=== PATIENT | male | born 1950 | race Caucasian/White ===

== ENCOUNTER 2020-02-06 10:21 | Emergency (ER) | payer MEDICARE, SELFPAY ==
--- NOTE | ~2020-02-06 | XR_ITS ---
XR foot LT min 3V DATE: 02/06/2020 11:09 INDICATION: Left foot pain, swelling, erythema, tenderness. No known injury. TECHNIQUE: 4 views COMPARISON: None FINDINGS: Minimal plantar calcaneal enthesopathy. 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 No fracture or dislocation, periosteal reaction or bone destruction. IMPRESSION: Minimal plantar calcaneal enthesopathy Reviewed, dictated and finalized at location A. ATIONS MGR
[2020-02-06 10:25] VITALS: BP 190/82; PULSE 79; RESP 18; TEMP 36.4; O2SAT 98
[2020-02-06 11:09] LABS: Basophils Absolute Auto 0.1 K/mm3 (0.0-0.1); Basophils Percent Auto 0.9 % (0.2-1.2); Eosinophils Absolute Auto 0.3 K/mm3 (0-0.3); Eosinophils Percent Auto 3.6 % (0-4.4); Hematocrit 42.6 % (42.0-52.0); Hemoglobin 15.2 g/dL (14.0-18.0); Immature Granulocyte Absolute 0.02 K/mm3 (0.00-0.031); Immature Granulocyte Percent A 0.2 % (0-0.5); Lymphocytes Absolute Auto 1.17 K/mm3 (0.9-3.2); Lymphocytes Percent Auto 14.4 % (18.3-44.2); Mean Corpuscular HGB Conc 35.7 g/dl (32-36); Mean Corpuscular Hemoglobin 33.8 pg (26-34); Mean Corpuscular Volume 94.7 fl (80-100); Mean Platelet Volume 10.8 fl (7.4-10.4); Monocytes Absolute Auto 0.8 K/mm3 (0.1-0.6); Monocytes Percent Auto 9.3 % (2.6-8.5); Neutrophils Absolute Auto 5.8 K/mm3 (1.3-6.7); Neutrophils Percent Auto 71.6 % (45.5-73.1); Platelet Count Result 173 k/mm3 (150-375); Red Cell Distribution Width 12.1 % (11.5-14.5); White Blood Count 8.1 K/mm3 (4.5-10.0)
[2020-02-06] MEDS: KETOROLAC 30 MG/ML VIAL (*BKC) IV PUSH (11:15)
[2020-02-06] MEDS: COLCHICINE 0.6 MG TABLET 1.2 MG PO (11:15)
--- NOTE | 2020-02-06 11:18 | ED.GENADULT ---
HPI - General Adult General Chief complaint: Extremity Injury, Lower Stated complaint: left big toe pain and swelling Time Seen by Provider: 02/06/20 10:36 Source: patient Mode of arrival: ambulatory Limitations: no limitations History of Present Illness HPI narrative: Patient 69-year-old male presents with 3 days duration of left great toe pain and swelling patient denies injury trauma or similar occurrence notes exquisite pain with even light touch denies radiation of pain does not take anything for his symptoms presents in no distress Related Data Home Medications Medication Instructions Recorded Confirmed ascorbic acid (vitamin C) 500 mg PO DAILY 02/06/20 02/06/20 folic acid 1 mg PO DAILY 02/06/20 02/06/20 levothyroxine [Synthroid] 100 mcg PO DAILY 02/06/20 02/06/20 lisinopril 20 mg PO BID 02/06/20 02/06/20 montelukast [Singulair] 10 mg PO DAILY 02/06/20 02/06/20 Allergies Allergy/AdvReac Type Severity Reaction Status Date / Time No Known Allergies Allergy Verified 02/06/20 10:27 Review of Systems Review of Systems: All systems reviewed & are unremarkable except as noted in HPI and below PMFSH Past Medical History Medical History (Updated 02/06/20 @ 11:34 by Kota Brown PA-C) Hypertension Social History Social History (Updated 02/06/20 @ 11:30 by Kota Brown PA-C) Smoking status: Former smoker Gender identity (if verbalized by the patient): Male Exam Narrative: Exam Narrative: GENERAL: Well-appearing, well-nourished, and in no acute distress. HEAD: Normocephalic, atraumatic. EYES: PERRLA and EOMI. ENT: Nares clear, no rhinorrhea or epistaxis. Mucous membranes moist. CHEST: Clear to auscultation. No respiratory distress. No wheezes rales or rhonchi HEART: Regular rate and rhythm. No murmur heard. EXTREMITIES: Normal range of motion. No edema. Tenderness of the left great toe with even light touch involving only the left great toe remainder of foot ankle and extremity nontender no deformity SKIN: Warm, dry, no rash. NEURO: No focal deficits. Alert and oriented x3. Cranial nerves II through XII grossly intact. Neurovascularly intact PSYCH: Normal mood and affect. Course Course Emergency Course: Patient symptoms most consistent with inflammatory arthritis patient will be managed accordingly follow with primary care felt appropriate for outpatient given anti-inflammatories in the emergency department Vital Signs Vital signs: Vital Signs Temperature 97.6 F 02/06/20 10:25 Pulse Rate 79 02/06/20 10:25 Respiratory Rate 18 02/06/20 10:25 Blood Pressure 190/82 H 02/06/20 10:25 Pulse Oximetry 98 02/06/20 10:25 Temperature 97.6 F 02/06/20 10:25 Pulse Rate 79 02/06/20 10:25 Respiratory Rate 18 02/06/20 10:25 Blood Pressure 190/82 H 02/06/20 10:25 Pulse Oximetry 98 02/06/20 10:25 Medical Decision Making MDM Narrative Medical decision making narrative: Patients injury or pain is consistent with musculoskeletal etiology. No signs of neurological or vascular compromise on exam. Compartments and tisues are soft without signs of compartment syndrome. Pain is felt appropriate for further evaluation on an outpatient basis. Vital Signs Vital Signs: Vital Signs Temperature 97.6 F 02/06/20 10:25 Pulse Rate 79 02/06/20 10:25 Respiratory Rate 18 02/06/20 10:25 Blood Pressure 190/82 H 02/06/20 10:25 Pulse Oximetry 98 02/06/20 10:25 Temperature 97.6 F 02/06/20 10:25 Pulse Rate 79 02/06/20 10:25 Respiratory Rate 18 02/06/20 10:25 Blood Pressure 190/82 H 02/06/20 10:25 Pulse Oximetry 98 02/06/20 10:25 Lab Data Result diagrams: 02/06/20 11:00 02/06/20 11:00 Labs: Lab Results 02/06/20 02/06/20 02/06/20 Range/Units 11:00 11:00 11:00 WBC 8.1 (4.5-10.0) K/mm3 RBC 4.50 L (4.6-6.20) M/mm3 Hgb 15.2 (14.0-18.0) g/dL Hct 42.6 (42.0-52.0) % MCV 94.7 (80-100) fl MCH
[2020-02-06 11:24] LABS: Anion Gap 8 mmol/L (8-16); Blood Urea Nitrogen 14 mg/dL (9-20); Calcium 9.2 mg/dL (8.4-10.2); Carbon Dioxide 25 mmol/L (22-30); Chloride 104 mmol/L (98-107); Estimated CRCL calculation 69 ml/min; Estimated Glomerular Filt Rate > 60; Glucose 103 mg/dL (75-110); Potassium 4.1 mmol/L (3.4-5.0); Sodium 137 mmol/L (137-145); Uric Acid 7.7 mg/dL (3.5-8.5)
[2020-02-06 11:58] VITALS: BP 181/86; PULSE 65; RESP 18; TEMP 36.7; O2SAT 100
== END 2020-02-06 12:01 | disposition home or self-care (01) ==
PROVIDERS: Emergency Medicine Emergency Medical Services; Emergency Provider Emergency Medicine; PCP Internal Medicine
DX: M79.675 Pain in left toe(s) (principal); I10 Essential (primary) hypertension; Z87.891 Personal history of nicotine dependence; M77.32 Calcaneal spur, left foot
CPT/HCPCS: 36415; 73630; 80048; 84550; 85025; 86140; 96374; 99284; A9270; J1885

== ENCOUNTER 2022-05-28 02:29 | Day surgery (SDC) | payer MEDICARE, SELFPAY ==
[2022-05-22 11:09] VITALS: BMI 26.1
[2022-05-28 07:47] VITALS: BP 137/83; PULSE 80; RESP 18; TEMP 37.1; O2SAT 97
[2022-05-28] MEDS: LACTATED RINGERS 1,000 ML 150 ML IV CONT (07:57)
--- NOTE | 2022-05-28 08:22 | P.PNAN_ITS ---
Anes - Initial Pre Proc Eval Procedure: Operation Date: 05/28/22 09:00 Proposed Procedures p Colonoscopy - Álvaro Darby MD Date/Time: 05/28/22 08:22 Surgeon: Álvaro Darby MD Pre Op Diagnosis: hx colon polyps Patient Data Age: 71 Gender: M Height: 1.74 m Weight: 78.4 kg Last Vital Signs Temp 98.7 F 05/28/22 07:47 Pulse 80 05/28/22 07:47 Resp 18 05/28/22 07:47 BP 137/83 05/28/22 07:47 Pulse Ox 97 05/28/22 07:47 O2 Del Method Room Air 05/28/22 07:47 Allergies Allergy/AdvReac Type Severity Reaction Status Date / Time No Known Allergies Allergy Verified 05/28/22 07:46 Home Medications Medication Instructions Recorded Confirmed Type ascorbic acid (vitamin C) 500 mg 500 mg PO DAILY 02/06/20 05/22/22 History tablet folic acid 1 mg tablet 1 mg PO DAILY 02/06/20 05/22/22 History levothyroxine 100 mcg tablet 100 mcg PO DAILY 02/06/20 05/22/22 History (Synthroid) lisinopril 20 mg tablet 20 mg PO BID 02/06/20 05/22/22 History rosuvastatin 5 mg tablet 5 mg PO DAILY 05/22/22 05/22/22 History Patient hx anesthesia problems: none Family hx anesthesia problems: none Results Review: All pre-operative results and documents have been reviewed as part of the pre- operative evaluation. [facility] Past Medical History Medical History (Updated 02/07/20 @ 00:00 by Rolando Wyatt) Hypertension Social History Social History (Updated 02/06/20 @ 11:30 by Kota Brown, PA-C) Smoking packs per day: 3 Smoking cigarettes per day: 60.0 Years smoked: 50 Smoking pack-years: 150.00 Smoking status: Former smoker Tobacco type: cigarettes Alcohol intake: current Drinks per week: 28 Alcohol use details: BEERS Substance use: never Substance use type: does not use Living arrangements: with family Gender identity (if verbalized by the patient): Male Spiritual care concerns: No Anes - Eval Final PreProcedure Day of Procedure 05/28/22 08:22 Patient weight: normal Heart: regular rate and rhythm Lungs: clear to auscultation Airway: Mallampati scale class II Neurological: alert and oriented Last oral intake: >/= 8 hours ASA classification: III Emergent: no Anesthetic plan: proceed Anesthesia type and monitoring: general GIVS and standard monitoring Results Review: All pre-operative results and documents have been reviewed as part of the pre- operative evaluation. Informed Consent: The patient's anesthetic plan and its attendant risks and benefits were discussed with the patient/family/POA. Questions were solicited and answers provided to the satisfaction of the patient/family/POA.
--- NOTE | 2022-05-28 08:43 | PM.HPGS ---
History of Present Illness History of Present Illness Consent: Risks, benefits, and alternatives have been discussed and questions answered. Patient agrees to proceed with procedure. Chief complaint: hx colon polyps Narrative: Derrek Diaz is a 71 year old male with colon polyp in 2018 Review of Systems Constitutional: Constitutional: Denies headache(s) and Denies weakness Eyes: Eyes: Denies blurry vision ENT: Reports Normal hearing present, Denies headache(s) and Denies neck pain Cardiovascular: Cardiovascular: Denies chest pain and Denies dyspnea Respiratory: Respiratory: Denies dyspnea Gastrointestinal: Gastrointestinal: Reports no additional gastrointestinal complaints Genitourinary: Genitourinary: Denies dysuria Musculoskeletal: Musculoskeletal: Denies neck pain Integumentary/Breasts: Skin/Breast: Denies dry skin Neurologic: Reports Normal hearing present, Denies headache(s) and Denies weakness Psychiatric: Psychiatric: Denies anxiety Endocrine: Endocrine: Denies change in body appearance Hematologic/Lymphatic: Hematologic/Lymphatic: Denies easy bleeding Allergic/Immunologic: Allergic/Immunologic: Denies urticaria PMF Past Medical History Medical History (Updated 05/28/22 @ 08:43 by Álvaro Darby MD) Adenomatous colon polyp Hypertension Social History Social History (Updated 02/06/20 @ 11:30 by Kota Brown, PA-C) Smoking packs per day: 3 Smoking cigarettes per day: 60.0 Years smoked: 50 Smoking pack-years: 150.00 Smoking status: Former smoker Tobacco type: cigarettes Alcohol intake: current Drinks per week: 28 Alcohol use details: BEERS Substance use: never Substance use type: does not use Living arrangements: with family Gender identity (if verbalized by the patient): Male Spiritual care concerns: No Meds Home Medications and Allergies Home Medications Medication Instructions Recorded Confirmed Type ascorbic acid (vitamin C) 500 mg 500 mg PO DAILY 02/06/20 05/22/22 History tablet folic acid 1 mg tablet 1 mg PO DAILY 02/06/20 05/22/22 History levothyroxine 100 mcg tablet 100 mcg PO DAILY 02/06/20 05/22/22 History (Synthroid) lisinopril 20 mg tablet 20 mg PO BID 02/06/20 05/22/22 History rosuvastatin 5 mg tablet 5 mg PO DAILY 05/22/22 05/22/22 History Allergies Allergy/AdvReac Type Severity Reaction Status Date / Time No Known Allergies Allergy Verified 05/28/22 07:46 Vital Signs Vital Signs - 24 hr 05/28/22 07:47 Temperature 98.7 F Pulse Rate 80 Respiratory Rate 18 Blood Pressure 137/83 Pulse Oximetry 97 Oxygen Delivery Room Air Exam Const: General: comfortable and no acute distress HENMT: Face/Nose/Sinus: Normal nares present Eyes: General: appearance normal, both eyes and all related structures Neck: Neck: no JVD Resp: Auscultation: clear to auscultation bilaterally Cardio: Rate: regular rate Rhythm: regular rhythm GI: Inspection: non-distended GI Palp: Yes Soft to palpation Skin: General skin exam: normal color Neuro: General: gait normal Speech: normal speech Extrem: General: normal to inspection Psych: Mental Status: mental status grossly normal Assessment and Plan Assessment and plan (1) Adenomatous colon polyp: Code(s): D12.6 - Benign neoplasm of colon, unspecified Status: Acute Assessment and Plan: colonoscopy
[2022-05-28 09:00] VITALS: BP 100/69; PULSE 78; RESP 20; O2SAT 95
[2022-05-28 09:10] VITALS: BP 150/75; PULSE 66; RESP 18; O2SAT 98
[2022-05-28 09:20] VITALS: BP 139/83; PULSE 64; RESP 18; O2SAT 99
== END 2022-05-28 09:31 | disposition home or self-care (01) ==
PROVIDERS: PCP Internal Medicine; Visit Provider Internal Medicine Gastroenterology
PROC: 0DJD8ZZ Inspection of Lower Intestinal Tract, Via Natural or Artificial Opening Endoscopic (ICD-10-PCS; CPT 45378; principal; 2022-05-28 09:00)
DX: Z12.11 Encounter for screening for malignant neoplasm of colon (principal); K57.30 Diverticulosis of large intestine without perforation or abscess without bleeding; D12.2 Benign neoplasm of ascending colon; K63.5 Polyp of colon; K64.8 Other hemorrhoids; I10 Essential (primary) hypertension; Z87.891 Personal history of nicotine dependence
CPT/HCPCS: 45385; 88305; J2704; J7120

== ENCOUNTER 2023-06-27 11:06 | Outpatient (CLI) | payer MEDICARE, SELFPAY ==
[2023-06-27 11:45] LABS: Basophils Absolute Auto 0.1 K/mm3 (0.0-0.1); Basophils Percent Auto 0.8 % (0.2-1.2); Eosinophils Absolute Auto 0.3 K/mm3 (0-0.3); Eosinophils Percent Auto 4.6 % (0-4.4); Hematocrit 35.6 % (42.0-52.0); Immature Granulocyte Absolute 0.03 K/mm3 (0.00-0.031); Immature Granulocyte Percent A 0.4 % (0-0.5); Mean Corpuscular HGB Conc 33.7 g/dl (32-36); Mean Corpuscular Hemoglobin 32.6 pg (26-34); Mean Corpuscular Volume 96.7 fl (80-100); Mean Platelet Volume 10.4 fl (7.4-10.4); Monocytes Absolute Auto 0.7 K/mm3 (0.1-0.6); Monocytes Percent Auto 9.5 % (2.6-8.5); Neutrophils Absolute Auto 4.6 K/mm3 (1.3-6.7); Neutrophils Percent Auto 61.7 % (45.5-73.1); Platelet Count Result 176 k/mm3 (150-375); Red Blood Count 3.68 M/mm3 (4.6-6.20); Red Cell Distribution Width 12.8 % (11.5-14.5); White Blood Count 7.4 K/mm3 (4.5-10.0)
[2023-06-27 12:50] LABS: Iron 60 ug/dL (49-181)
[2023-06-27 12:52] LABS: Alanine Aminotransferase 45 U/L (6-50); Albumin Level 4.3 g/dL (3.5-5.1); Alkaline Phosphatase 80 U/L (38-126); Anion Gap 7 mmol/L (4-12); Aspartate Amino Transferase 54 U/L (17-59); Bilirubin,Total 0.9 mg/dL (0.2-1.3); Blood Urea Nitrogen 16 mg/dL (9-20); Calcium 9.3 mg/dL (8.4-10.2); Carbon Dioxide 24 mmol/L (22-30); Chloride 109 mmol/L (98-107); Estimated Glomerular Filt Rate > 60; Glucose 96 mg/dL (65-110); Potassium 3.6 mmol/L (3.4-5.0); Sodium 140 mmol/L (137-145)
[2023-06-27 13:02] LABS: Percent Iron Saturation 20 % (20-50)
[2023-07-05 07:47] LABS: Reference Lab Test Result 47.9
== END 2023-06-27 11:07 | disposition home or self-care (01) ==
PROVIDERS: PCP Internal Medicine; Visit Provider Internal Medicine Hematology & Oncology
DX: E80.1 Porphyria cutanea tarda (principal)
CPT/HCPCS: 36415; 80053; 82728; 83540; 83550; 85025

== ENCOUNTER 2023-10-14 15:22 | Outpatient (CLI) | payer MEDICARE, SELFPAY ==
[2023-10-14 15:39] LABS: Basophils Percent Auto 0.6 % (0.2-1.2); Eosinophils Absolute Auto 0.4 K/mm3 (0-0.3); Eosinophils Percent Auto 6.1 % (0-4.4); Hematocrit 31.7 % (42.0-52.0); Hemoglobin 10.6 g/dL (14.0-18.0); Immature Granulocyte Absolute 0.01 K/mm3 (0.00-0.031); Immature Granulocyte Percent A 0.2 % (0-0.5); Lymphocytes Absolute Auto 1.01 K/mm3 (0.9-3.2); Lymphocytes Percent Auto 16.2 % (18.3-44.2); Mean Corpuscular HGB Conc 33.4 g/dl (32-36); Mean Corpuscular Hemoglobin 32.6 pg (26-34); Mean Corpuscular Volume 97.5 fl (80-100); Mean Platelet Volume 10.1 fl (7.4-10.4); Monocytes Absolute Auto 0.6 K/mm3 (0.1-0.6); Neutrophils Absolute Auto 4.2 K/mm3 (1.3-6.7); Neutrophils Percent Auto 66.9 % (45.5-73.1); Platelet Count Result 165 k/mm3 (150-375); Red Blood Count 3.25 M/mm3 (4.6-6.20); Red Cell Distribution Width 14.5 % (11.5-14.5); White Blood Count 6.2 K/mm3 (4.5-10.0)
[2023-10-14 16:24] LABS: Iron 85 ug/dL (49-181)
[2023-10-14 16:34] LABS: Percent Iron Saturation 32 % (20-50)
== END 2023-10-14 15:23 | disposition home or self-care (01) ==
LOC: ANHLAB 15:23
PROVIDERS: PCP Internal Medicine; Visit Provider Internal Medicine Hematology & Oncology
DX: E83.19 Other disorders of iron metabolism (principal)
CPT/HCPCS: 36415; 82728; 83540; 83550; 85025

== ENCOUNTER 2023-10-15 12:50 | Outpatient (CLI) | payer MEDICARE, SELFPAY | END 2023-10-15 12:51 | disposition home or self-care (01) | LOC: ANHLAB 12:51 | PROVIDERS: PCP Internal Medicine; Visit Provider Internal Medicine Hematology & Oncology | DX: E83.19 Other disorders of iron metabolism (principal) | CPT/HCPCS: 36415; 81256 ==

== ENCOUNTER 2024-03-24 10:25 | Outpatient (CLI) | payer MEDICARE, SELFPAY ==
[2024-03-24 10:47] LABS: Hematocrit 36.3 % (42.0-52.0); Hemoglobin 12.1 g/dL (14.0-18.0); Mean Corpuscular HGB Conc 33.3 g/dl (32-36); Mean Platelet Volume 10.1 fl (7.4-10.4); Platelet Count Result 179 k/mm3 (150-375); Red Blood Count 3.78 M/mm3 (4.6-6.20); Red Cell Distribution Width 13.5 % (11.5-14.5)
[2024-03-24 12:48] LABS: Alanine Aminotransferase 36 U/L (6-50); Albumin Level 4.2 g/dL (3.5-5.1); Alkaline Phosphatase 65 U/L (38-126); Anion Gap 7 mmol/L (4-12); Aspartate Amino Transferase 47 U/L (17-59); Bilirubin,Total 0.6 mg/dL (0.2-1.3); Blood Urea Nitrogen 20 mg/dL (9-20); Calcium 8.9 mg/dL (8.4-10.2); Carbon Dioxide 29 mmol/L (22-30); Chloride 106 mmol/L (98-107); Estimated Glomerular Filt Rate 55; Glucose 93 mg/dL (65-110); Potassium 4.3 mmol/L (3.4-5.0); Sodium 142 mmol/L (137-145)
[2024-03-24 18:52] LABS: Iron 81 ug/dL (49-181)
[2024-03-24 19:05] LABS: Percent Iron Saturation 27 % (20-50)
== END 2024-03-24 10:26 | disposition home or self-care (01) ==
LOC: ANHLAB 10:26
PROVIDERS: PCP Internal Medicine; Visit Provider Internal Medicine Hematology & Oncology
DX: E83.19 Other disorders of iron metabolism (principal)
CPT/HCPCS: 36415; 80053; 82728; 83540; 83550; 85027

== ENCOUNTER 2024-07-16 12:41 | Outpatient (CLI) | payer MEDICARE, SELFPAY ==
--- NOTE | ~2024-07-16 | US_ITS ---
EXAMINATION: US retroperitoneal comp DATE: 07/16/2024 13:20 INDICATION: Chronic kidney disease TECHNIQUE: Multiple ultrasound grayscale images of the kidneys were obtained. COMPARISON: None. FINDINGS: The right kidney measures 10.2 x 5.2 x 4.5 cm. The left kidney measures 10.2 x 5.2 x 4.6 cm. The kidn eys demonstrate normal echogenicity. There are bilateral anechoic renal cysts measuring 1.8 cm at the left kidney and 1.3 cm at the right kidney. There is no hydronephrosis in either kidney. No stones identified. The bladder is normal. IMPRESSION: 1. Small bilateral renal cysts. Otherwise normal kidneys without hydronephrosis. Reviewed, dictated and finalized at location A. IMPRESSION: 1. Small bilateral renal cysts. Otherwise normal kidneys without hydronephrosi s.
== END 2024-07-16 12:42 | disposition home or self-care (01) ==
LOC: MICIMG 12:42
PROVIDERS: PCP Internal Medicine; Visit Provider Specialist
DX: N18.30 Chronic kidney disease, stage 3 unspecified (principal); N28.1 Cyst of kidney, acquired
CPT/HCPCS: 76770

== ENCOUNTER 2024-08-30 11:10 | Emergency (ER) | payer MEDICARE, SELFPAY ==
--- NOTE | 2024-08-30 11:16 | ECG_ITS ---
Test Date: 2024-08-30 11:22:24 Measurements Intervals [place] Rate: 59 P: -4 WV: 184 QRS: 31 QRSD: 90 T: 93 QT: 419 QTc: 417 Interpretive Statements SINUS BRADYCARDIA ST-T WAVE ABNORMALITY IN HIGH LATERAL LEADS- CONSIDER ISCHEMIA BASELINE ARTIFACT- I, III, AVR, AVL, AVF ABNORMAL ECG No previous ECG available for comparison Electronically Signed On 08-31-2024 08:02:51 CDT by Kai Montoya D.O.
[2024-08-30 11:17] VITALS: BP 101/51; PULSE 64; RESP 18; TEMP 36.6; O2SAT 99
[2024-08-30 11:21] VITALS: BP 107/62; PULSE 68; RESP 14; O2SAT 100
--- NOTE | 2024-08-30 11:26 | ED.GENADULT ---
HPI - General Adult General Chief complaint: Recheck/Abnormal Lab/Rx Stated complaint: low BP Time Seen by Provider: 08/30/24 11:17 History of Present Illness HPI narrative: This is a 73-year-old male hypertension presenting with complaints of low blood pressure. Patient takes a blood pressure 5 times a day and has a diarrhea going back a year and half. Patient is on carvedilol, nifedipine, losartan and isosorbide mononitrate. He was restarted on isosorbide mononitrate 6 days ago. Since then his blood pressures which usually run around SBP 120-130 have been in the high 80s to low 100s. His only symptom is some dizziness when he stands but no chest pain difficulty breathing or lower extremity edema. 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 No fevers headaches chest pain difficulty breathing abdominal pain or urinary symptoms. Patient feels excellent overall. Related Data Home Medications ?Medication ?Instructions ?Recorded ?Confirmed ?Last Taken ?Type ascorbic acid (vitamin C) 500 mg 500 mg PO DAILY 02/06/20 05/22/22 Unknown History tablet folic acid 1 mg tablet 1 mg PO DAILY 02/06/20 05/22/22 Unknown History levothyroxine 100 mcg tablet 100 mcg PO DAILY 02/06/20 05/22/22 Unknown History (Synthroid) lisinopril 20 mg tablet 20 mg PO BID 02/06/20 05/22/22 Unknown History rosuvastatin 5 mg tablet 5 mg PO DAILY 05/22/22 05/22/22 Unknown History Allergies Allergy/AdvReac Type Severity Reaction Status Date / Time No Known Allergies Allergy Verified 05/28/22 07:46 [facility] Past Medical History Medical History (Updated 08/30/24 @ 11:29 by Janusz Calle MD) Adenomatous colon polyp Hypertension Social History Social History (Updated 02/06/20 @ 11:30 by Kota Brown, PAGiseleC) Smoking packs per day: 3 Smoking cigarettes per day: 60.0 Years smoked: 50 Smoking pack-years: 150.00 Smoking status: Former smoker Tobacco type: cigarettes Alcohol intake: current Drinks per week: 28 Alcohol use details: BEERS Substance use: never Substance use type: does not use Living arrangements: with family Gender identity (if verbalized by the patient): Male Spiritual care concerns: No Exam Narrative: APPEARANCE: No apparent distress. Head: atraumatic. EYES: EOMI, NOSE: Atraumatic NECK: Trachea midline RESPIRATORY: No increased rate of breathing CARDIOVASCULAR: RRR, ABDOMINAL: Non-distended MUSCULOSKELETAl: No obvious deformities NEURO: Alert. Moving 4/4 extremities SKIN:: Warm, dry. Normal color PSYCHIATRIC: Normal affect Course Vital Signs Vital signs: Vital Signs Temperature 97.8 F 08/30/24 11:17 Pulse Rate 64 08/30/24 11:17 Respiratory Rate 18 08/30/24 11:17 Blood Pressure 101/51 L 08/30/24 11:17 Pulse Oximetry 99 08/30/24 11:17 Oxygen Delivery Room Air 08/30/24 11:17 Temperature 97.8 F 08/30/24 11:17 Pulse Rate 68 08/30/24 11:21 Respiratory Rate 14 08/30/24 11:21 Blood Pressure 107/62 08/30/24 11:21 Pulse Oximetry 100 08/30/24 11:21 Oxygen Delivery Room Air 08/30/24 11:17 Medical Decision Making [facility] Narrative Medical decision making narrative: -Course: 73-year-old male presenting with low blood pressures after restarting his isosorbide mononitrate. He was instructed to hold that until he sees his route sales delivery drivers supervisor tomorrow morning. His blood pressures here are 101/51. Patient courage to drink plenty of fluids today. Patient has no other symptoms. Given return precautions. -DDX includes but is not limited to: Medication effect, sepsis, dehydration Vital Signs Vital Signs: Vital Signs Temperature 97.8 F 08/30/24 11:17 Pulse Rate 64 08/30/24 11:17 Respiratory Rate 18 08/30/24 11:17 Blood Pressure 101/51 L 08/30/24 11:17 Pulse Oximetry 99 08/30/24 11:17 Oxygen Delivery Room Air 08/30/24 11:17 Temperature 97.8 F 08/30/24 11:17 Pulse Rate 68 08/30/24 11:21 Respiratory Rate 14 08/30/24 11:21 Blood Pressure 107/62 08/30/24 11:21 Pulse Oximetry 100 08/30/24 11:21 Oxygen Delivery Room Air 08/30/24 11:17 Discharge Plan Discharge Clinical Impression: Blood pressure check Patient Disposition: Home Condition: Stable Instructions: Antibiotic Form, Hypotension (DC) Additional Instructions: Please hold your isosorbide mononitrate into you see your route sales delivery drivers supervisor. Return if you develop chest pain difficulty breathing or fainting. Patient Language: Icelandic Prescriptions: No Action rosuvastatin 5 mg tablet 5 mg PO DAILY lisinopril 20 mg Tablet 20 mg PO BID levothyroxine [Synthroid] 100 mcg Tablet 100 mcg PO DAILY ascorbic acid (vitamin C) 500 mg Tablet 500 mg PO DAILY folic acid 1 mg Tablet 1 mg PO DAILY Follow-up/Referrals: Maryanne,MD Yasmin [Primary Care Provider] -
[2024-08-30] MEDS: SODIUM CHLORIDE 0.9% IV 1,000 ML 999 ML IV CONT (11:45)
[2024-08-30 11:46] VITALS: BP 93/57; PULSE 53; RESP 14; O2SAT 95
[2024-08-30 12:31] VITALS: BP 100/64; PULSE 62; RESP 14; O2SAT 99
== END 2024-08-30 12:40 | disposition home or self-care (01) ==
PROVIDERS: Emergency Provider Emergency Medicine; PCP Internal Medicine
DX: R03.1 Nonspecific low blood-pressure reading (principal); Z87.891 Personal history of nicotine dependence; R00.1 Bradycardia, unspecified; R94.31 Abnormal electrocardiogram [ECG] [EKG]
CPT/HCPCS: 93005; 96360; 99283; J7030

== ENCOUNTER 2024-09-16 06:57 | Inpatient (IN) | payer MEDICARE, SELFPAY ==
[2024-09-16] VITALS (23 sets, daily range): BP systolic 94–139; BP diastolic 44–73; PULSE 70–97; RESP 16–21; TEMP 36.1–37.1; O2SAT 92–100; BMI 25.3
--- NOTE | ~2024-09-16 | XR_ITS ---
Clinical Indication: Weakness PA and lateral views of the chest: Comparison: None Findings: The lungs are clear, without evidence of focal consolidation or pleural effusion. Cardiome diastinal silhouette is within normal limits. Bones and soft tissues are unremarkable. Impression: Normal chest. Reviewed, dictated and finalized at location . Impression: Normal chest.
--- NOTE | ~2024-09-16 | XR_ITS ---
XR chest port-a-cath/central 09/22/2024 13:43 Indication: Post insertion of tunneled dialysis catheter Procedure: AP portable chest Comparison: Comparison to multiple prior studies sequentially, with oldest reviewed study dated 11/2024. Findings: Borderline heart size. Coarse interstitial infiltrates bilaterally without significant wilson ge compared with 09/20 or 09/19/2024. Left IJ dialysis catheter identified, tip in the SVC. No pneumoth orax. Impression: 1: Stable interstitial infiltrates which may reflect mild edema, atypical pneumonia or chronic inters titial lung disease. Reviewed, dictated and finalized at location B. Impression: 1: Stable interstitial infiltrates which may reflect mild edema, atypical pneum onia or chronic interstitial lung disease.
--- NOTE | ~2024-09-16 | XR_ITS ---
EXAMINATION: XR fl guide central line place DATE: 09/22/2024 13:14 INDICATION: Tunneled dialysis catheter insertion TECHNIQUE: 3 fluoroscopic images of the left supraclavicular region were obtained during procedure pe rformed by Dr. Bravo. Radiologist was not present for the imaging or procedure. The amount of fluoros copy time used during this procedure was 0.4 minutes. Total DAP was 0.576 Gycm^2. COMPARISON: Chest radiograph dated 09/20/2024 FINDINGS: Images demonstrate the axis of the left internal jugular vein with subsequent placement of a likely t unneled large-bore dual-lumen left internal jugular central venous catheter clearly seen extending di stally along the left brachiocephalic vein and beyond the margins of the field of imaging. Visualized portion of the left upper lung are clear with no evident pneumothorax. IMPRESSION: 1. Fluoroscopy utilized during placement of a left internal jugular central venous tunneled dialysis catheter placement. See procedure note for further detail. Reviewed, dictated and finalized at location A. IMPRESSION: 1. Fluoroscopy utilized during placement of a left internal jugular central mary ous tunneled dialysis catheter placement. See procedure note for further detail .
--- NOTE | ~2024-09-16 | XR_ITS ---
Portable chest x-ray Comparison: 09/19/2024 Clinical History: Myocardial infarction Findings: Possible minimal interstitial prominence, similar to prior exam. No consolidation or pleur al effusion. No pneumothorax. Cardiomediastinal silhouette is stable. Bones and soft tissues are unr emarkable. Impression: Mild interstitial prominence, nonspecific, similar to prior exam. Correlate for mild interstitial daniel ma or chronic interstitial disease or COPD. Reviewed, dictated and finalized at location . Impression: Mild interstitial prominence, nonspecific, similar to prior exam. Correlate for mild interstitial edema or chronic interstitial disease or COPD.
--- NOTE | ~2024-09-16 | XR_ITS ---
EXAMINATION: XR chest 1V portable DATE: 09/19/2024 06:29 INDICATION: Pulmonary edema TECHNIQUE: frontal view of the chest was obtained. COMPARISON: Chest radiograph dated 09/18/2024 FINDINGS: Again seen are several groundglass opacities and increased interstitial pattern in the bilateral mid and lower lung zones. No pleural effusion or pneumothorax. Calcified nodule in the left lower lung zo ne consistent with old granulomatous disease. The cardiomediastinal silhouette is normal. Visualized bones and soft tissues are unremarkable. IMPRESSION: 1. No significant change in subtle interstitial and airspace opacities in the mid and lower lung zone s which could represent mild pulmonary edema or pneumonia. Reviewed, dictated and finalized at location A. IMPRESSION: 1. No significant change in subtle interstitial and airspace opacities in the m id and lower lung zones which could represent mild pulmonary edema or pneumonia .
--- NOTE | ~2024-09-16 | XR_ITS ---
Portable chest x-ray Comparison: 09/16/2024 Clinical History: Shortness of breath Findings: There is worsening groundglass pulmonary disease in the right lung in particular. Left millicent g remains essentially clear. Cardiomediastinal silhouette is stable. Bones and soft tissues are unre markable. Impression: Worsening groundglass pulmonary disease in the right lung. Correlate for asymmetric pulmonary edema v ersus multilobar pneumonia. Reviewed, dictated and finalized at location . Impression: Worsening groundglass pulmonary disease in the right lung. Correlate for asymme tric pulmonary edema versus multilobar pneumonia.
--- OUTSIDE RECORDS SUMMARY | 2024-09-16 06:59 | XMS_ITS | Clinical Summary ---
Author Organization [facility] Address Formerly [facility], 1928–[address] [place] [address] Care Team Providers Care Curtain Cutter Hand Name Role Phone Rey Heck MD Primary Care Provider + [phone] Randy Bravo MD Unavailable [phone] Bran العراقي DO Unavailable [phone] Dave Parker MD Unavailable Allergies Active Allergy Reactions Criticality Noted Date Comments Hydrochlorothiazide Blisters,Other (See comments) High 01/16/2018 Medications levothyroxine (SYNTHROID, LEVOTHROID) 100 mcg tablet TK 1 T PO QD 0 8 Active folic acid (FOLVITE) 1 mg tablet Take 1 tablet (1,000 mcg total) by mouth daily 30 tablet 2 0 Active aspirin 81 mg enteric coated tablet Take 1 tablet (81 mg total) by mouth daily Active clopidogreL (PLAVIX) 75 mg tablet Take 1 tablet (75 mg total) by mouth daily Active losartan (COZAAR) 100 mg tablet Take 1 tablet (100 mg total) by mouth daily Active nitroglycerin (NITROSTAT) 0.[address] 1 tablet (0.4 mg total) under the tongue every 5 (five) minutes as needed for chest pain Active rosuvastatin (CRESTOR) 40 mg tablet Take 1 tablet (40 mg total) by mouth daily Active ascorbic acid 500 mg tablet,chewable Take 1 tablet/chew tab (500 mg total) by mouth daily Active metoprolol XL (TOPROL-XL) 50 mg extended release tablet Take 1 tablet (50 mg total) by mouth daily Active isosorbide mononitrate ER (IMDUR) 30 mg 24 hr tablet Take 1 tablet (30 mg total) by mouth daily Active cetirizine (ZyrTEC) 10 mg tablet Take 1 tablet (10 mg total) by mouth daily as needed 4 Active ondansetron ODT (ZOFRAN-ODT) 4 mg disintegrating tablet DISSOLVE 1 TABLET(4 MG) ON THE TONGUE EVERY 8 HOURS NEEDED FOR NAUSEA OR VOMITING 20 tablet 1 5 Active Active Problems Problem Noted Date Diagnosed Date Carotid occlusion, bilateral 02/20/2024 Chronic kidney disease 10/21/2023 CAD S/P percutaneous coronary angioplasty 2023 CAD (coronary artery disease) 07/19/2023 Cobalamin deficiency 05/27/2023 Chronic obstructive pulmonary disease 05/27/2023 Vitamin D deficiency 05/05/2023 Hyperlipidemia 05/05/2023 Gout 06/18/2022 Multiple nodules of lung 05/22/2019 Porphyria 01/16/2018 Porphyria cutanea tarda 01/16/2018 Immunizations Immunization Administration Dates Next Due Influenza, Unspecified 12/09/2016 PrePay (J&J) SARS-CoV-2 Vaccination 08/25/2020 Surgical History Surgery Date Site/Laterality Comments COLONOSCOPY AMPUTATION FINGER / THUMB 03/11/1980 - 03/10/1981 Left reattachment, traumatic injury from table saw, middle finger left hand CYST REMOVAL Right foot TONSILLECTOMY CORONARY ANGIOPLASTY WITH STENT PLACEMENT 2 stents Medical History Medical History Date Comments HTN (hypertension) Hyperlipidemia Hypothyroidism Allergic rhinitis Coronary artery disease Former smoker Family History Medical History Relation Name Comments No Known Problems Brother Aneurysm Father No Known Problems Mother No Known Problems Sister Relation Name Status Comments Brother Alive Father Mother Alive Sister Alive Social History Tobacco Use Types Packs/Day Years Used Date Smoking Tobacco: Former Cigarettes 3 50 1 960 - 2010 Smokeless Tobacco: Never Tobacco Cessation:Counseling Given: Not Answered Alcohol Use Standard Drinks/Week Comments Yes 12 (1 standard drink = 0.6 oz pu re alcohol) AUDIT-C Answer Date Recorded Q1: How often do you have a drink containing alcohol? 4 or more times a week 04/10/2024 Q2: How many drinks containi ng alcohol do you have on a typical day when you are drinking? 7 to 9 Q3: How often do you have si x or more drinks on one occasion? Daily or almost daily 04/10/2024 Personal Safety Answer Date Recorded Have you ever been in or are you currently in a harmful physical or emotional relationship or is someone making you feel afraid or unsafe? 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 Not on file Not on file Obstetrics History Last Filed Vital Signs Vital Sign Reading Time Taken Comments Blood Pressure 101/57 04/11/2024 8:59 AM FOSTER PARENT Pulse 65 04/11/2024 8:59 AM FOSTER PARENT Temperature 37.1 C (98.8 F) 04/11/2024 8:59 AM FOSTER PARENT Respiratory Rate 17 04/11/2024 8:59 AM FOSTER PARENT Oxygen Saturation 96% 04/11/2024 8:59 AM FOSTER PARENT Inhaled Oxygen Concentration - - Weight 80.3 kg (177 lb) 04/10/2024 3:30 PM FOSTER PARENT Height 177.8 cm (5' 10) 04/10/2024 3:30 PM FOSTER PARENT Body Mass Index 25.4 04/10/2024 3:30 PM FOSTER PARENT Plan of Treatment Health Maintenance Due Date Last Done Comments Colon Cancer Screening-Colonoscopy 1950 Depression Screening 1950 DTaP/Tdap/Td Vaccine (1 - Tdap) 1960 Hepatitis B Screening 10/28/1967 Pneumococcal vaccine 65+ (1 of 2 - PCV) 1968 Zoster Vaccine (1 of 2) 10/28/1999 Abdominal Aortic Aneurysm (AAA) Screen 2014 Well Visit 65+ 2014 Covid-19 Vaccine ( season) 2023, 08/25/2020 Fall Risk Assessment 04/11/2025 04/11/2024 Hepatitis C Screening Completed 03/31/2018 Influenza Vaccine Completed 01/27/2024, 12/09/2016 Medical Devices Implanted Type Area Outsole Caser Device Identifier Shelf Expiration Date Model / Serial / Lot Medtronic Card Vasc Surgery 4.0 X 30mm [place] Rx Coronary Stent [id number] - [id number] Implanted:Qty: 1 on 07/25/2023 by Dave Parker MD at [facility] Vasc Surgery 03/30/2026 [id number] / / [id number] [place] [employer] Sulma Stent Drug Eluting S Megatron Us Mr 5.00x8mm [id number] - [id number] Implanted:Qty: 1 on 07/25/2023 by Dave Parker MD at [facility] [employer] Sulma 10/30/2024 [id number] / / [id number] Sulma Angio-Seal Vip 6fr Closere Device [id number] - [id number] Implanted:Qty: 1 on 07/25/2023 by Dave Parker MD at [facility] [employer] [facility] [id number] / / Piedra Vascular Xact 8-10mm 40mm Self Expand Closed Cell Flare End Freestyle [id number] - [id number] Implanted:Qty: 1 on 04/10/2024 by Varun Zarate MD at [facility] [employer] 09/07/2025 [id number] / / [id number] TerNvidia Angio-Seal Vip 6fr Closere Device [id number] - [id number] Implanted:Qty: 1 on 04/10/2024 by Varun Zarate MD at [facility] [employer] [facility] 09/17/2024 [id number] / / Procedures Procedure Name Priority Date/Time Associated Diagnosis Comments HEPATITIS C ANTIBODY Routine 03/31/2018 3:12 PM FOSTER PARENT Porphyria cutanea tarda (HCC) from Last 3 Months or Most Recently Relevant to Health Maintenance Results * Hepatitis C antibody (03/31/2018 3:12 PM FOSTER PARENT) Hep C Ab <0.1 0.0 - 0.9 s/co ratio [facility] - 01 Comment: Negative: < 0.8 Indeterminate: 0.8 - 0.9 Positive: > 0.9 The CDC recommends that a positive HCV antibody result be followed up with a HCV Nucleic Acid Amplification test (484912). Blood specimen (specimen) 03/31/2018 3:12 PM FOSTER PARENT 03/31/2018 Narrative [facility] - 04/01/2018 8:31 AM FOSTER PARENT Performed at: - [facility] [address] [id number] Food Service Ambassador: Mihir Paul PhD, Phone: [phone] us Bran العراقي DO LAB MICROBIOLOGY - GENERAL O RDERABLES Final Result [facility] - 01 from Last 3 Months or Most Recently Relevant to Health Maintenance Insurance [employer] MEDICARE O HUMANA MEDICARE HMO Advance Directives For more information, please contact: [phone] * Full Code (Latest Code Status on File) Date Activated Date Inactivated Comments 04/10/2024 11:03 AM 04/11/2024 7:10 PM * Full Code Date Activated Date Inactivated Comments 07/25/2023 10:42 AM 07/26/2023 6:13 PM Care Teams Curtain Cutter Hand Relationship Specialty Start Date End Date Rey Heck MD PCP - General Internal Medicine 01/16/18 Randy Bravo MD Dermatology 01/20/18 Bran العراقي DO [address] [place] [address] Medical Oncologist/Hematologis t Hematology and Oncology 06/11/18 Dave Parker MD [address] [place] [address] Consulting Physician Cardiovascular Disease 07/26/23
--- OUTSIDE RECORDS SUMMARY | 2024-09-16 06:59 | XMS_ITS | Referral Summary ---
Author Organization [facility] Address [facility] [place] [address] Care Team Providers Care Head Concierge Name Role Phone Rey Heck MD Primary Care Provider + [phone] Randy Bravo MD Unavailable [phone] Bran العراقي DO Unavailable [phone] Dave Parker MD Unavailable Allergies Active Allergy [...] Administration Dates Next Due Influenza, Unspecified 12/09/2016 [place] (J&J) SARS-CoV-2 Vaccination 08/25/2020 Social History Tobacco Use Types Packs/Day Years [...] on file Legal Sex Male 7:30 PM SOLDERER PRODUCTION LINE Gender Identity Not on file Sexual Orientation Not on file 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 Not on file Not on file Not on file 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 Not on file Not on file Last Filed Vital Signs Vital Sign Reading Time Taken Comments Blood Pressure 101/57 04/11/2024 8:59 AM SOLDERER PRODUCTION LINE Pulse 65 04/11/2024 8:59 AM SOLDERER PRODUCTION LINE Temperature 37.1 C (98.8 F) 04/11/2024 8:59 AM SOLDERER PRODUCTION LINE Respiratory Rate 17 04/11/2024 8:59 AM SOLDERER PRODUCTION LINE Oxygen Saturation 96% 04/11/2024 8:59 AM SOLDERER PRODUCTION LINE Inhaled Oxygen Concentration - - Weight 80.3 kg (177 lb) 04/10/2024 3:30 PM SOLDERER PRODUCTION LINE Height 177.8 cm (5' 10) 04/10/2024 3:30 PM SOLDERER PRODUCTION LINE Body Mass Index 25.4 04/10/2024 3:30 PM SOLDERER PRODUCTION LINE Plan of Treatment Not on file Medical Devices Implanted Type Area Direct Sales Professional Device Identifier Shelf Expiration Date Model / Serial / Lot Medtronic Card Vasc Surgery 4.0 X 30mm [facility] [place] Rx Coronary Stent [id number] - [id number] Implanted:Qty: 1 on 07/25/2023 by Dave Parker MD at [facility] Medtronic Card Vasc Surgery 03/30/2026 [id number] / / [id number] [employer] Sulma Stent Drug Eluting S Megatron Us Mr 5.00x8mm [id number] - [id number] Implanted:Qty: 1 on 07/25/2023 by Dave Parker MD at [facility] [employer] Sulma 10/30/2024 [id number] 500 / / [id number] TerOne[employer]Net Angio-Seal Vip 6fr Closere Device [id number] - [id number] Implanted:Qty: 1 on 07/25/2023 by Dave Parker MD at [facility] [employer] Sulma [id number] / / Piedra Vascular Xact 8-10mm 40mm Self Expand Closed Cell Flare End Freestyle [id number] - [id number] Implanted:Qty: 1 on 04/10/2024 by Varun Zarate MD at [facility] [employer] 09/07/2025 [id number] / / [id number] Xunlei Angio-Seal Vip 6fr Closere Device [id number] - [id number] Implanted:Qty: 1 on 04/10/2024 by Varun Zarate MD at [facility] [employer] 09/17/2024 [id number] / / Procedures Procedure Name Priority Date/Time Associated Diagnosis Comments HEPATITIS C ANTIBODY Routine 03/31/2018 3:12 PM SOLDERER PRODUCTION LINE Porphyria cutanea tarda (HCC) from Last 3 Months or Most Recently Relevant to Health Maintenance Results * Hepatitis C antibody (03/31/2018 3:12 PM SOLDERER PRODUCTION LINE) Hep C Ab <0.1 0.0 - 0.9 s/co ratio [facility] - Comment: Negative: < 0.8 Indeterminate: 0.8 - 0.9 Positive: > 0.9 The CDC recommends that a positive HCV antibody result be followed up with a HCV Nucleic Acid Amplification test (371017). Blood specimen (specimen) 03/31/2018 3:12 PM SOLDERER PRODUCTION LINE 03/31/2018 Narrative [facility] - 04/01/2018 8:31 AM SOLDERER PRODUCTION LINE Performed at: [facility] [id number] Crematory Attendant: Mihir Paul PhD, Phone: [phone] Bran العراقي DO LAB MICROBIOLOGY - GENERAL O RDERABLES Final Result Performing Organization Address City/State/[facility] Co de Phone Number [facility] - 01 from Last 3 Months or Most Recently Relevant to Health Maintenance Insurance HUMANA CHOICE MEDICARE PPO HUMANA MEDICARE HMO Advance Directives For more information, please contact: [phone] * Full Code (Latest Code Status on File) Date Activated Date Inactivated Comments 04/10/2024 11:03 AM 04/11/2024 7:10 PM * Full Code Date Activated Date Inactivated Comments 07/25/2023 10:42 AM 07/26/2023 6:13 PM Care Teams Head Concierge Relationship Specialty Start Date End Date Rey Heck MD PCP - General Internal Medicine 01/16/18 Randy Bravo MD Dermatology 01/20/18 Bran العراقي DO [address] [place] [address] Medical Oncologist/Hematologis t Hematology and Oncology 06/11/18 Dave Parker MD [address] [place] [address] Consulting Physician Cardiovascular Disease 07/26/23
--- OUTSIDE RECORDS SUMMARY | 2024-09-16 06:59 | XMS_ITS | Clinical Summary ---
Author Organization [facility] Address [address] [place] [address] Care Team Providers Care Superintendent Institution Name Role Phone Yasmin Madden MD Primary Care Provider Allergies Active Allergy Reactions Criticality Noted Date Comments Hydrochlorothiazide Other (See Comments) High 2017 Medications metoprolol succinate (TOPROL XL) 25 mg Extended Release 24 hour tablet Take 50 mg by mouth daily. Active levothyroxine 100 mcg tablet Take 100 mcg by mouth daily in the morning. Active rosuvastatin (CRESTOR) 40 mg tablet Take 40 mg by mouth daily. Active folic acid (FOLVITE) 1 mg tablet Take 1 mg by mouth daily. Active losartan (COZAAR) 100 mg tablet Take 100 mg by mouth daily. Active ascorbic acid, vitamin C, (VITAMIN C) 1,000 mg Tablet Take 1,000 mg by mouth daily. Active cholecalciferol 1,250 mcg (50,000 unit) Capsule Take by mouth. Activ e CYANOCOBALAMIN, VITAMIN B-12, INJECTION by Injection route. Active nitroglycerin (NITROSTAT) 0.4 mg Tablet, Sublingual Place 0.4 mg under tongue every 5 minutes as needed for Chest Pain. Active amLODIPine (NORVASC) 5 mg tablet Take 5 mg by mouth daily. Active Active Problems No known active problems Encounters Date Type Department Care Team Description 08/25/2024 External Device Data [facility] ABSTRACTION Provider, Abstract 07/30/2024 External Device Data [facility] ABSTRACTION Provider, Abstract 07/30/2024 External Device Data [facility] ABSTRACTION Provider, Abstract 07/29/2024 External Device Data [facility] ABSTRACTION Provider, Abstract 07/28/2024 External Device Data [facility] ABSTRACTION Provider, Abstract 06/23/2024 External Device Data [facility] ABSTRACTION Provider, Abstract from Last 3 Months Family History Relation Name Status Comments Brother Alive Father Mother Alive Sister 1 Alive Sister 2 Alive Social History Tobacco Use Types Packs/Day Years Used Date Smoking Tobacco: Former Cigarettes 2 014 - 1963 Tobacco Cessation:Counseling Given: Not Answered Alcohol Use Standard Drinks/Week Comments Yes 24 (1 standard drink = 0.6 oz pu re alcohol) Sex and Gender Information Value Date Recorded Sex Assigned at Not on file Legal Sex Male 3:36 PM CDT Gender Identity Not on file Sexual Orientation Not on file Last Filed Vital Signs Vital Sign Reading Time Taken Comments Blood Pressure 143/80 04/01/2024 1:17 PM AREA OPERATIONS DIRECTOR Pulse 76 04/01/2024 1:15 PM AREA OPERATIONS DIRECTOR Temperature 36.7 C (98.1 F) 04/01/2024 1:15 PM AREA OPERATIONS DIRECTOR Respiratory Rate 15 04/01/2024 1:15 PM AREA OPERATIONS DIRECTOR Oxygen Saturation 97% 04/01/2024 1:15 PM AREA OPERATIONS DIRECTOR Inhaled Oxygen Concentration - - Weight 81.6 kg (179 lb 12.8 oz) 04/01/2024 1:15 PM AREA OPERATIONS DIRECTOR Height 175.3 cm (5' 9) 06/27/2023 10:0 1 AM CDT Body Mass Index 26.55 06/27/2023 10:01 AM CDT Plan of Treatment Upcoming Encounters Date Type Department Care Team (Late st Contact Info) Description 09/29/2024 11:45 AM CDT Office Visit [facility] Oncology and Hematology - [place] [address] [facility] [address] [place] [address] Quintin Paniagua MD [address] [facility] [address] [place] [address] Health Maintenance Due Date Last Done Comments DTAP/TDAP/TD VACCINES (1 - Tdap) 1968 COLORECTAL SCREENING 1994 Colorectal Cancer Screening 1994 FIT-DNA Q 3 years 1994 FIT/FOBT Q 1 year 1994 Flex Sig/CT Colonography Q 5 years 1994 ZOSTER VACCINE (1 of 2) 10/28/1999 RSV VACCINE (60+ or ) (1 - Risk 60-74 years 1-dose series) 2009 COVID-19 Vaccine ( season) 2023, 08/25/2020 INFLUENZA VACCINE (#1) 2024 PNEUMOCOCCAL VACCINE 50+ YEARS Completed 05/06/2023 Abdominal Aortic Aneurysm (AAA) Screening Completed 05/15/2023 Insurance [employer] [facility] Care Teams Superintendent Institution Relationship Specialty Start Date End Date Yasmin Madden MD PCP - General Internal Medicine 06/27/23
--- OUTSIDE RECORDS SUMMARY | 2024-09-16 06:59 | XMS_ITS ---
Author Organization [facility] Address [address] [facility]EDS AT [facility] [address] [facility] [address] [place] [address] Care Team Providers Care Sharepoint Administrator Name Role Phone Carrington Robert Unavailable [phone] Problems Problem Type SNOMED Code ICD Code Onset Dates Problem Status W/U Status Risk Notes Problem Essential hypertension (26390392) Essential hypertension (I10) Active confirmed Problem Gastro-esophageal reflux disease without esophagitis (636911390) Gastro-esophagea l reflux disease without esophagitis (K21.9) Active confirmed Problem Hyperlipidemia (17940699) Hyperlipidemia, unspecified (E78.5) Active confirmed Problem Coronary artery disease (61091326) CAD (coronary artery disease) (I25.10) Active confirmed Problem Cardiomyopathy (55650456) Cardiomyopathy, unspecified (I42.9) Active confirmed Encounters Encounter Location Date Provider Diagnosis [place] [facility] [address] [facility] [address] [place] [address] 06/24/2024 Robert Shultz Chronic kidney disease, stage [...] Information Progress Notes * MALU MENDIOLADOB: 0 (73 yo M)Acc No.[id number]:06/24/2024 Progress Notes Patient: MALU JIMENES Provider: Regis SIDDIQUI MD, Saranya.Carlos.Jose Manuel.P, F.A.S.N. :1950 A ge:73 Y S ex:Male Date:06/24/2024 Address:[address] [place] [address] Subjective: * Chief Complaints: * * Medical [...] Treatment: * Billing Information: * Visit Code: 30601 Office Visit, New Pt., Level 5. * Procedure Codes: * Electronic signature of Gaudencio Shultz MD on 09/16/2024 at 06:59 AM CDT Sign off status: Pending * Provider: Regis SIDDIQUI MD, Saranya.Carlos.Jose Manuel.P, F.A.S.N. Date: 0 06/24/2024 Generated for Printing/Faxing/eTransmitting on: 0 09/16/2024 06:59 AM CDT
--- OUTSIDE RECORDS SUMMARY | 2024-09-16 07:00 | XMS_ITS | Data Portability ---
Author Organization [place] - [facility] [place], Main Office Address [address] [place] [address] Care Team Providers Care Ground Nuclear Weapons Assembly Officer Name Role Phone ELLIS PANIAGUA Cancer Program Consultant FRANCIS ZAMORA Engraver [employer] BERT MADDEN Primary Care Provider DEVANTE LUCIO Enterprise Application Analyst Assessment Encounter Date Assessment Date Assessment LastModified by Organization Details LastModified Time 10/21/2023 10/21/2023 12/06/2022: PSA 0.6 10/15/2023: Gluc 102, BUN 29, Cr 1.99, GFR 33, AST 48 H/H 10.6/32.5, MCV 99.7 Not available 10/21/2023 18:16:36 01/27/2024 01/27/2024 12/06/2022: PSA 0.6 10/15/2023: Gluc 102, BUN 29, Cr 1.99, GFR 33, AST 48 H/H 10.6/32.5, MCV 99.7 Not available 01/27/2024 14:49:12 02/11/2024 02/11/2024 12/06/2022: PSA 0.6 10/15/2023: Gluc 102, BUN 29, Cr 1.99, GFR 33, AST 48 H/H 10.6/32.5, MCV 99.7 01/27/2024: Hepatitis panel/GGT: Neg GFR 59, AST 53 H/H 11.4/97.1 12/06/2022: PSA 0.6 10/15/2023: Gluc 102, BUN 29, Cr 1.99, GFR 33, AST 48 H/H 10.6/32.5, MCV 99.7 01/27/2024: GFR 59, AST 53 [facility] 11.4/33.7 [email or web address] 02/11/2024 09:42:11 05/21/2024 05/21/2024 12/06/2022: PSA 0.6 10/15/2023: Gluc 102, BUN 29, Cr 1.99, GFR 33, AST 48 H/H 10.6/32.5, MCV 99.7 01/27/2024: Hepatitis panel/GGT: Neg GFR 59, AST 53 H/H 11.4/97.1 12/06/2022: PSA 0.6 10/15/2023: Gluc 102, BUN 29, Cr 1.99, GFR 33, AST 48 H/H 10.6/32.5, MCV 99.7 01/27/2024: GFR 59, AST 53 H/H 11.4/33.7 05/13/2024: Hep panel: Neg H/H 11.1/33.5 [facility] Not available 05/21/2024 09:28:02 08/20/2024 08/20/2024 12/06/2022: PSA 0.6 10/15/2023: Gluc 102, BUN 29, Cr 1.99, GFR 33, AST 48 H/H 10.6/32.5, MCV 99.7 01/27/2024: Hepatitis panel/GGT: Neg GFR 59, AST 53 H/H 11.4/97.1 12/06/2022: PSA 0.6 10/15/2023: Gluc 102, BUN 29, Cr 1.99, GFR 33, AST 48 H/H 10.6/32.5, MCV 99.7 01/27/2024: GFR 59, AST 53 H/H 11.4/33.7 05/13/2024: Hep panel: Neg H/H 11.1/33.5 [email or web address] Not available 08/20/2024 10:23:53 Plan of Treatment Reminders Order Date Submit Date Provider Last Modified By Organization Details Last Modified Time Details Appointments Any 15 2024 09:30A M Bert kelley MD Not available Not available Not available Lab lipid panel, serum 2024 025 [facility] (Lab), [address] [place], [address], 08/20/2024 12:20:33 CBC w/ auto diff 2024 025 [facility] (Lab), [address] [place], [address], 08/20/2024 12:13:03 CMP, serum or plasma 2024 025 [facility] (Lab), [address] [place], [address], 08/20/2024 12:20:43 TSH, serum or plasma 2024 025 [facility] (Lab), [address] [place], [address], 08/20/2024 12:51:16 vitamin B12 + folate, serum or blood [address] (Lab), [address] [place], [address], 08/20/2024 10:55:19 PSA, total, serum or plasma 2024 025 [facility] (Lab), [address] [place], [address], 08/20/2024 12:51:19 vitamin D, 25-hydrox y, total, serum [address] (Lab), [address] [place], [address], 08/20/2024 10:55:19 gamma-glu tamyl transfera se (ggt), serum 2024 025 [facility] (Lab), [address] [place], [address], 08/20/2024 12:20:48 vitamin D, 25-hydrox y, total, serum [address] (Lab), [address] [place], [address], 06/08/2024 09:18:18 vitamin B12 + folate, serum or blood [address] (Lab), [address] [place], [address], 06/08/2024 09:18:18 lipid panel, serum [address] (Lab), [address] [place], [address], 06/08/2024 09:18:18 CBC w/ auto diff [address] (Lab), [address] [place], [address], 06/08/2024 09:18:18 CMP, serum or plasma [address] (Lab), [address] [place], [address], 06/08/2024 09:18:18 TSH, serum or plasma [address] (Lab), [address] [place], [address], 06/08/2024 09:18:18 gamma-glu tamyl transfera se (ggt), serum [address] (Lab), [address] [place], [address], 06/08/2024 09:18:18 lipid panel, serum 2023 024 [facility] (Lab), [address] [place], [address], 05/13/2024 13:03:56 CBC w/ auto diff 2023 024 [facility] (Lab), [address] [place], [address], 05/13/2024 13:14:25 CMP, serum or plasma 2023 024 [facility] (Lab), [address] [place], [address], 05/13/2024 13:04:05 TSH, serum or plasma 2023 024 [facility] (Lab), [address] [place], [address], 05/13/2024 13:32:06 vitamin B12 + folate, serum or blood [address] (Lab), [address] [place], [address], 08/11/2024 16:47:32 vitamin D, 25-hydrox y, total, serum [address] (Lab), [address] [place], [address], 08/11/2024 16:47:32 gamma-glu tamyl transfera se (ggt), serum 2023 024 [facility] (Lab), [address] [place], [address], 05/13/2024 13:04:07 hepatitis panel (A+B+C), acute, serum 2023 024 [facility] (Lab), [address] [place], [address], 05/13/2024 13:34:44 lipid panel, serum 2023 024 [facility] (Lab), [address] [place], [address], 01/27/2024 20:44:45 CBC w/ auto diff 2023 024 [facility] (Lab), [address] [place], [address], 01/27/2024 20:07:00 CMP, serum or plasma 2023 024 [facility] (Lab), [address] [place], [address], 01/27/2024 20:44:51 TSH, serum or plasma 2023 024 [facility] (Lab), [address] [place], [address], 01/27/2024 21:07:55 vitamin B12 + folate, serum or blood [address] (Lab), [address] [place], [address], 07/28/2024 08:28:54 vitamin D, 25-hydrox y, total, serum [address] (Lab), [address] [place], [address], 07/28/2024 08:28:54 gamma-glu tamyl transfera se (ggt), serum 2023 024 [facility] (Lab), [address] [place], [address], 01/27/2024 20:44:55 hepatitis panel (A+B+C), acute, serum 2023 024 [facility] (Lab), [address] [place], [address], 01/27/2024 21:16:49 gamma-glu tamyl transfera se (ggt), serum [address] (Lab), [address] [place], [address], 06/16/2024 08:16:45 hepatitis panel (A+B+C), acute, serum [address] (Lab), [address] [place], [address], 06/16/2024 08:16:45 vitamin B12 + folate, serum or blood [address] (Lab), [address] [place], [address], 06/16/2024 08:16:45 lipid panel, serum [address] (Lab), [address] [place], [address], 04/21/2024 09:06:08 CBC w/ auto diff [address] (Lab), [address] [place], [address], 04/21/2024 09:06:09 CMP, serum or plasma [address] (Lab), [address] [place], [address], 04/21/2024 09:06:09 TSH, serum or plasma 2023 024 [facility] (Lab), [address] [place], [address], 06/16/2024 08:16:44 vitamin D, 25-hydrox y, total, serum 2023 024 [email or web address] [facility] (Lab), [address] [place], [address], 06/16/2024 08:16:45 Referral nephrolog ist referral - Please call patient to schedule an appointme nt. Thank you. 2024 025 ALEK Lucio MD (Nephrology, [address], [address], [place], [address], 08/28/2024 09:40:45 nephrolog ist referral - Please call patient to schedule an appointme nt. Thank you. 2024 025 suha Lucio MD (Nephrology, [address], [address], [place], [address], 09/07/2024 09:16:41 cardiolog ist referral - Please call patient to schedule an appointme nt. Thank you. 2024 025 [place], [address], [address], [place], [address], 08/26/2024 08:19:23 cardiolog ist referral - Please call patient to schedule an appointme nt. Thank you. 2024 025 [place], [address], [address], [place], [address], 08/26/2024 08:19:24 hematolog ist referral 2023 024 Ellis Paniagua MD, [address], [place], [address], 02/11/2024 19:06:55 nephrolog ist referral - Please call patient to schedule. 2023 024 krystin Lucio MD (Nephrology, [address], [address], [place], [address], 02/11/2024 19:07:33 cardiolog ist referral 2023 024 [place], [address], [address], [place], [address], 02/11/2024 19:06:55 cardiolog ist referral 2023 024 [place], [address], [address], [place], [address], 02/11/2024 19:06:56 hematolog ist referral 2023 024 [email or web address] Ellis Paniagua MD, [address], [place], [address], 01/30/2024 09:45:27 nephrolog ist referral - Please call patient to schedule. 2023 024 harrison Lucio MD (Nephrology, [address], [address], [place], [address], 04/30/2024 09:02:18 cardiolog ist referral 2023 024 [place], [address], [address], [place], [address], 01/30/2024 09:45:28 cardiolog ist referral 2023 024 [place], [address], [address], [place], [address], 01/30/2024 09:45:29 hematolog ist referral 2023 024 [email or web address] Ellis Paniagua MD, [address], [place], [address], 04/21/2024 08:02:14 nephrolog ist referral 2023 024 [email or web address] 2 Robert Lucio MD (Nephrology, [address], [address], [place], [address], 06/16/2024 08:10:08 cardiolog ist referral 2023 024 [email or web address] [place], [address], [address], [place], [address], 11/21/2023 15:29:11 cardiolog ist referral 2023 024 [place], [address], [address], [place], [address], 11/21/2023 15:29:13 Procedures None recorded. Surgeries None recorded. Imaging US, abdominal aorta [address] (Radiology), [address] [place] [address], [address], 12/26/2023 20:33:14 LDCT, chest, for lung cancer screening [address] (Radiology), [address] [place] [address], [address], 04/20/2024 15:59:23 US, liver [address] (Radiology), [address] [place], [address], 06/16/2024 15:18:39 US, thyroid [address] (Radiology), [address] [place] [address], [address], 06/16/2024 15:18:38 Medication Orders isosorbid e mononitra te ER 30 mg tablet,ex tended release 24 hr 2024 025 [id number], [address], [place], [address], 08/20/2024 11:12:47 folic acid 1 mg tablet 2023 024 [id number], [address], [place], [address], 01/27/2024 14:56:40 folic acid 1 mg tablet 2023 024 [id number], [address], [place], [address], 10/21/2023 18:12:21 Patient TargetsNo targets recorded. Patient Instructions Encounter Date Encounter Id Patient Instructions Last Modified By Organization Details Last Modified Time 10/21/2023 [id number] dementia rating scale-2* [email or web address] 2 Not available 10/21/2023 18:07:47 alcohol misuse* [email or web address] 2 Not available 10/21/2023 18:07:48 depression screening* [email or web address] 2 Not available 10/21/2023 18:07:48 multi-dimensiona l health assessment questionnaire* [email or web address] 2 Not available 10/21/2023 18:07:48 Personalized [facility] Plan and Screening Recommendations Advance Directives - Do you have one? No You have indicated that you are capable of preparing your advance care directive Advance Directives - Do we have your advance directive on file in your health record? Primary Prevention/Interven tion (prevents or decreases the chance of common diseases from occurring) Smoking Risk: Non Smoker Alcohol Misuse Screening: Positive Decrease alcohol intake to 2 or less servings per day Weight: Appropriate Physical activity: Appropriate physical activity Nutrition: Average Refer to attached handout Heart-Healthy Diet: After Your Visit Fall Risk (screened today): Low Refer to attached handout Preventing Falls: After your Visit Vaccines Pneumococcal: Recommended today, but you have declined Influenza: Your next one in the fall of this year Chronic Disease Risks Stroke: Intermediate Risk Follow Heart Healthy/ DASH Diet. Heart Attack: Intermediate Risk Follow Heart Healthy/ DASH Diet. Clogging of the Arteries: Intermediate Risk Follow Heart Healthy/ DASH Diet. Diabetes: Low Risk Follow Heart Healthy/ DASH Diet. Secondary Prevention/Interven tion (detects treatable diseases before they may cause symptoms, disability, or ) Prostate Cancer Screening: Your next PSA in:Ordered Colon Cancer Screening: Colonoscopy Date Screening Last Performed: 2022 Eye Disease Screening: Recommended today Dementia Risk: Low I have no recommendations Depression Screening: Negative [email or web address] Not available 10/21/2023 17:42:37 Reason for Referral Referring Physician: Kolton De La Fuente, Encounter Date: 10/21/2023 Enterprise Application Analyst Referral for Es sential hypertension Referring Physician: Kolton De La Fuente, Encounter Date: 10/21/2023 Enterprise Application Analyst Referral for Co ronary arteriosclerosis Referring Physician: Kolton De La Fuente, Encounter Date: 10/21/2023 Work Order Clerk Referral for Ch ronic kidney disease Referring Physician: Kolton De La Fuente, Encounter Date: 10/21/2023 Referring Physician: Kolton De La Fuente, Encounter Date: 01/27/2024 Enterprise Application Analyst Referral for Es sential hypertension Referring Physician: Kolton De La Fuente, Encounter Date: 01/27/2024 Enterprise Application Analyst Referral for Co ronary arteriosclerosis Referring Physician: Kolton De La Fuente, Encounter Date: 01/27/2024 Work Order Clerk Referral for Ch ronic kidney disease Please call patient to schedule. Referring Physician: Kolton De La Fuente, Encounter Date: 01/27/2024 Referring Physician: Kolton De La Fuente, Encounter Date: 02/11/2024 Enterprise Application Analyst Referral for Es sential hypertension Referring Physician: Bert Madden Internal Medicine, Encounter Date: 02/11/2024 Enterprise Application Analyst Referral for Co ronary arteriosclerosis Referring Physician: Bert Madden Internal Medicine, Encounter Date: 02/11/2024 Work Order Clerk Referral for Ch ronic kidney disease Please call patient to schedule. Referring Physician: Bert Madden Internal Medicine, Encounter Date: 02/11/2024 Enterprise Application Analyst Referral for Es sential hypertension Please call patient to schedule an appointment. Thank you. Referring Physician: Kolton De La Fuente Medicine, Encounter Date: 05/21/2024 Enterprise Application Analyst Referral for Co ronary arteriosclerosis Please call patient to schedule an appointment. Thank you. Referring Physician: Kolton De La Fuente Medicine, Encounter Date: 05/21/2024 Work Order Clerk Referral for Ch ronic kidney disease Please call patient to schedule an appointment. Thank you. Referring Physician: Kolton De La Fuente Medicine, Encounter Date: 05/21/2024 Work Order Clerk Referral for Ch ronic kidney disease Please call patient to schedule an appointment. Thank you. Referring Physician: Kolton De La Fuente Medicine, Encounter Date: 08/20/2024 Results Created Date Observation Date Name Description Value Unit Range Abnormal Flag Note LastModifiedBy Organization Detail LastModifiedTime 10/15/19 24 10/15/2023 CBC/C OMPLE TE BLD COUNT W/DIF F white blood cells 6.5 x10'3 /uL 4.2-10 .8 Not Available [facility] (Lab) [address] [place], [address], 10/15/2023 15:01:48 10/15/19 24 10/15/2023 CBC/C OMPLE TE BLD COUNT W/DIF F red blood cells 3.26 x10'6 /uL 4.10-5 .80 low Not Available [facility] (Lab) [address] [place], [address], 10/15/2023 15:01:48 10/15/19 24 10/15/2023 CBC/C OMPLE TE BLD COUNT W/DIF F hemoglobin 10.6 g/dL 13.2-1 7.0 low Not Available [facility] (Lab) [address] [place], [address], 10/15/2023 15:01:48 10/15/19 24 10/15/2023 CBC/C OMPLE TE BLD COUNT W/DIF F hematocrit 32.5 % 39.3-5 0.0 low Not Available [facility] (Lab) [address] [place], [address], 10/15/2023 15:01:48 10/15/19 24 10/15/2023 CBC/C OMPLE TE BLD COUNT W/DIF F mean red cell volume 99.7 fL 80.0-9 7.0 high Not Available [facility] (Lab) [address] [place], [address], 10/15/2023 15:01:48 10/15/19 24 10/15/2023 CBC/C OMPLE TE BLD COUNT W/DIF F mean red cell hemoglobin 32.5 pg 27.0-3 3.0 Not Available [facility] (Lab) [address] [place], [address], 10/15/2023 15:01:48 10/15/19 24 10/15/2023 CBC/C OMPLE TE BLD COUNT W/DIF F mean RBC HGB concentratio n 32.6 g/dL 31.0-3 6.0 Not Available [facility] (Lab) [address] [place], [address], 10/15/2023 15:01:48 10/15/19 24 10/15/2023 CBC/C OMPLE TE BLD COUNT W/DIF F red cell distribution width 14.3 % 11.8-1 5.5 Not Available [facility] (Lab) [address] [place], [address], 10/15/2023 15:01:48 10/15/19 24 10/15/2023 CBC/C OMPLE TE BLD COUNT W/DIF F platelets 179 x10'3 /uL 150-40 0 Not Available [facility] (Lab) [address] [place], [address], 10/15/2023 15:01:48 10/15/1910/15/2023 CBC/C OMPLE TE BLD COUNT W/DIF F mean platelet volume 11.5 fL 9.0-12 .4 Not Available [facility] (Lab) [address] [place], [address], 10/15/2023 15:01:48 10/15/19 24 10/15/2023 CBC/C OMPLE TE BLD COUNT W/DIF F neutrophils 67.5 % 39.0-7 2.0 Not Available [facility] (Lab) [address] [place], [address], 10/15/2023 15:01:48 10/15/19 24 10/15/2023 CBC/C OMPLE TE BLD COUNT W/DIF F lymphocytes 16.0 % 16.0-4 7.0 Not Available [facility] (Lab) [address] [place], [address], 10/15/2023 15:01:48 10/15/19 24 10/15/2023 CBC/C OMPLE TE BLD COUNT W/DIF F monocytes 8.2 % 5.0-12 .0 Not Available [facility] (Lab) [address] [place], [address], 10/15/2023 15:01:48 10/15/19 24 10/15/2023 CBC/C OMPLE TE BLD COUNT W/DIF F eosinophils 7.4 % 1.0-7. 0 high Not Available [facility] (Lab) [address] [place], [address], 10/15/2023 15:01:48 10/15/19 24 10/15/2023 CBC/C OMPLE TE BLD COUNT W/DIF F basophils 0.6 % 0.0-2. 0 Not Available [facility] (Lab) [address] [place], [address], 10/15/2023 15:01:48 10/15/19 24 10/15/2023 CBC/C OMPLE TE BLD COUNT W/DIF F immature granulocytes 0.3 % 0.00-0 .50 Not Available [facility] (Lab) [address] [place], [address], 10/15/2023 15:01:48 10/15/19 24 10/15/2023 CBC/C OMPLE TE BLD COUNT W/DIF F neutrophils, absolute count 4.39 x10'3 /uL 1.5-8. 0 Not Available [facility] (Lab) [address] [place], [address], 10/15/2023 15:01:48 10/15/19 24 10/15/2023 CBC/C OMPLE TE BLD COUNT W/DIF F lymphocytes, absolute count 1.04 x10'3 /uL 1.07-3 .43 low Not Available [facility] (Lab) [address] [place], [address], 10/15/2023 15:01:48 10/15/19 24 10/15/2023 CBC/C OMPLE TE BLD COUNT W/DIF F monocytes, absolute count 0.53 x10'3 /uL 0.29-0 .99 Not Available [facility] (Lab) [address] [place], [address], 10/15/2023 15:01:48 10/15/19 24 10/15/2023 CBC/C OMPLE TE BLD COUNT W/DIF F eosinophils, absolute count 0.48 x10'3 /uL 0.02-0 .53 Not Available [facility] (Lab) [address] [place], [address], 10/15/2023 15:01:48 10/15/19 24 10/15/2023 CBC/C OMPLE TE BLD COUNT W/DIF F basophils, absolute count 0.04 x10'3 /uL 0.01-0 .08 Not Available [facility] (Lab) [address] [place], [address], 10/15/2023 15:01:48 10/15/19 24 10/15/2023 CBC/C OMPLE TE BLD COUNT W/DIF F immature granulocytes ,absolute 0.02 x10'3 /uL 0.00-0 .05 Not Available [facility] (Lab) [address] [place], [address], 10/15/2023 15:01:48 10/15/19 24 10/15/2023 CBC/C OMPLE TE BLD COUNT W/DIF F nucleated red blood cells 0.0 % -0 Not Available [facility] (Lab) [address] [place], [address], 10/15/2023 15:01:48 10/15/19 24 10/15/2023 CBC/C OMPLE TE BLD COUNT W/DIF F NRBC# 0.00 x10'3 /uL Not Available [facility] (Lab) [address] [place], [address], 10/15/2023 15:01:48 10/15/19 24 10/15/2023 LIPID PANEL cholesterol 100 mg/dL 140-19 9 low NIH NADIR NSUS RECOM MENDA TION FOR KALYN STERO L: ADULT CHILD LOW RISK: <200 <170 BORDE RLINE : <200- 239 ----- HIGH RISK: >240 >200 Not Available [facility] (Lab) [address] [place], [address], 10/15/2023 16:58:18 10/15/19 24 10/15/2023 LIPID PANEL triglyceride s 61 mg/dL 0-150 NIH NADIR NSUS REPOR T RECOM MENDA TION FOR TRIGL YCERI JESÚS: ADULT CHILD LOW RISK: <150 ----- BODER LINE: 150-1 99 ----- HIGH RISK: >200 ----- Not Available [facility] (Lab) [address] [place], [address], 10/15/2023 16:58:18 10/15/19 24 10/15/2023 LIPID PANEL HDL cholesterol 48 mg/dL 40- Not Available [facility] (Lab) [address] [place], [address], 10/15/2023 16:58:18 10/15/19 24 10/15/2023 LIPID PANEL LDL cholesterol, calculated 40 mg/dL 0-130 NIH NADIR NSUS REPOR T RECOM MENDA TIONS FOR LDL: ADULT CHILD LOW RISK <130 <110 (OPTI MAL LDL) <100 ----- BORDE RLINE : 130-1 59 ----- HIGH RISK: >160 >130 A TRIGL YCERI DE RESUL T >400 INVAL IDATE S THE CALCU LATIO N FOR LDL FRACT IONAT ION - THE LDL RESUL T WILL NOT BE REPOR JOCELYN. Not Available [facility] (Lab) [address] [place], [address], 10/15/2023 16:58:18 10/15/19 24 10/15/2023 COMPR EHENS ROBINA METAB OLIC PANEL sodium 138 mmol/ L 137-14 5 Not Available [facility] (Lab) [address] [place], [address], 10/15/2023 16:58:23 10/15/19 24 10/15/2023 COMPR EHENS ROBINA METAB OLIC PANEL potassium 4.6 mmol/ L 3.5-5. 1 Not Available [facility] (Lab) [address] [place], [address], 10/15/2023 16:58:23 10/15/19 24 10/15/2023 COMPR EHENS ROBINA METAB OLIC PANEL chloride 112 mmol/ L 98-107 high Not Available [facility] (Lab) [address] [place], [address], 10/15/2023 16:58:23 10/15/19 24 10/15/2023 COMPR EHENS ROBINA METAB OLIC PANEL carbon dioxide 22 mmol/ L 22-30 Not Available [facility] (Lab) [address] [place], [address], 10/15/2023 16:58:23 10/15/19 24 10/15/2023 COMPR EHENS ROBINA METAB OLIC PANEL anion gap 8.6 mmol/ L 14-22 low Not Available [facility] (Lab) [address] [place], [address], 10/15/2023 16:58:23 10/15/19 24 10/15/2023 COMPR EHENS ROBINA METAB OLIC PANEL glucose 102 mg/dL 70-99 high Not Available [facility] (Lab) [address] [place], [address], 10/15/2023 16:58:23 10/15/19 24 10/15/2023 COMPR EHENS ROBINA METAB OLIC PANEL BUN 29 mg/dL 8-19 high Not Available [facility] (Lab) [address] [place], [address], 10/15/2023 16:58:23 10/15/19 24 10/15/2023 COMPR EHENS ROBINA METAB OLIC PANEL creatinine 1.99 mg/dL 0.66-1 .25 high Not Available [facility] (Lab) [address] [place], [address], 10/15/2023 16:58:23 10/15/19 24 10/15/2023 COMPR EHENS ROBINA METAB OLIC PANEL GFR 33 Refer ence Range : [place] ge GFR Healt hy Adult : >60 mL/mi n/1.7 3 m2 Chron ic Kidne y Disea se: 15-60 mL/mi n/1.7 3 m2 Kidne y Failu re: <15/m L/min /1.73 m2 www.n iddk. nih.g ov The MDRD study equat ion has not been valid ated in child dena <18 years of age; pregn ant women ; the elder ly >85 years of age; or in some racia l or ethni c subgr oups, such as Hispa nics. Outsi de the valid ated bre eters , estim ated GFR is less accur ate, requi ring clini kim judgm ent on a case- by-ca se basis . Clini kim inter preta tion for other races and ages must be made by the clini chapin. The MDRD study equat ion has not been valid ated for the evalu ation of serum creat inine relat ed to nutri malik l statu s or medic ation usage . For perso ns <18 years of age, a pedia tric GFR calcu lator is avail able on the [facility] websi te: https ://gabbie hankins.rojas santiago.o rg/pr ofess ional s/kdo qi/gf r_cal culat or Not Available [facility] (Lab) [address] [place], [address], 10/15/2023 16:58:23 10/15/19 24 10/15/2023 COMPR EHENS ROBINA METAB OLIC PANEL alkaline phosphatase 73 U/L 38-126 Not Available [facility] (Lab) [address] [place], [address], 10/15/2023 16:58:23 10/15/19 24 10/15/2023 COMPR EHENS ROBINA METAB OLIC PANEL alanine aminotransfe rase 40 U/L 0-50 Not Available [facility] (Lab) [address] [place], [address], 10/15/2023 16:58:23 10/15/19 24 10/15/2023 COMPR EHENS ROBINA METAB OLIC PANEL aspartate aminotransfe rase 48 U/L 15-46 high Not Available [facility] (Lab) [address] [place], [address], 10/15/2023 16:58:23 10/15/19 24 10/15/2023 COMPR EHENS ROBINA METAB OLIC PANEL bilirubin, total 0.60 mg/dL 0.20-1 .30 Not Available [facility] (Lab) [address] [place], [address], 10/15/2023 16:58:23 10/15/19 24 10/15/2023 COMPR EHENS ROBINA METAB OLIC PANEL calcium 9.1 mg/dL 8.4-10 .2 Not Available [facility] (Lab) [address] [place], [address], 10/15/2023 16:58:23 10/15/19 24 10/15/2023 COMPR EHENS ROBINA METAB OLIC PANEL total protein 7.0 g/dL 6.3-8. 2 Not Available [facility] (Lab) [address] [place], [address], 10/15/2023 16:58:23 10/15/19 24 10/15/2023 COMPR EHENS ROBINA METAB OLIC PANEL albumin 4.1 g/dL 3.0-4. 4 Not Available [facility] (Lab) [address] [place], [address], 10/15/2023 16:58:23 10/15/19 24 10/15/2023 COMPR EHENS ROBINA METAB OLIC PANEL globulin 2.9 g/dL 2.6-4. 2 Not Available [facility] (Lab) [address] [place], [address], 10/15/2023 16:58:23 10/15/19 24 10/15/2023 COMPR EHENS ROBINA METAB OLIC PANEL A/G ratio 1.4 ratio 1.0-2. 0 Not Available [facility] (Lab) [address] [place], [address], 10/15/2023 16:58:23 10/15/19 24 10/15/2023 T4 FREE free T4 1.36 NG/dL 0.78-2 .19 Not Available [facility] (Lab) [address] [place], [address], 10/15/2023 17:06:42 10/15/19 24 10/15/2023 VITAM IN D 25-HY DROXY vd25oh 44.5 NG/mL 30-100 Vitam in D Statu s: Defic ient: <20 ng/mL Insuf ficie nt: 20-29 ng/mL Suffi cient : 30-10 0 ng/mL Not Available [facility] (Lab) [address] [place], [address], 10/15/2023 17:12:43 10/15/19 24 10/15/2023 TSH thyroid-stim ulating hormone 0.556 uIU/m L 0.465- 4.680 Not Available [facility] (Lab) [address] [place], [address], 10/15/2023 17:21:52 10/15/19 24 10/15/2023 VITAM IN B12 (ABIGAIL DEANNA ) vb12 436 pg/mL 239-93 1 Not Available [facility] (Lab) [address] [place], [address], 10/15/2023 18:13:00 10/15/19 24 10/15/2023 FOLAT E, SERUM /PLAS MA folate >20.0 NG/mL 2.76-2 0.0 Not Available [facility] (Lab) [address] [place], [address], 10/15/2023 18:13:06 01/27/20 24 01/27/2024 CBC/C OMPLE TE BLD COUNT W/DIF F white blood cells 5.2 x10'3 /uL 4.2-10 .8 Not Available [facility] (Lab) [address] [place], [address], 01/27/2024 20:07:00 01/27/20 24 01/27/2024 CBC/C OMPLE TE BLD COUNT W/DIF F red blood cells 3.47 x10'6 /uL 4.10-5 .80 low Not Available [facility] (Lab) [address] [place], [address], 01/27/2024 20:07:00 01/27/20 24 01/27/2024 CBC/C OMPLE TE BLD COUNT W/DIF F hemoglobin 11.4 g/dL 13.2-1 7.0 low Not Available [facility] (Lab) [address] [place], [address], 01/27/2024 20:07:00 01/27/20 24 01/27/2024 CBC/C OMPLE TE BLD COUNT W/DIF F hematocrit 33.7 % 39.3-5 0.0 low Not Available [facility] (Lab) [address] [place], [address], 01/27/2024 20:07:00 01/27/20 24 01/27/2024 CBC/C OMPLE TE BLD COUNT W/DIF F mean red cell volume 97.1 fL 80.0-9 7.0 high Not Available [facility] (Lab) [address] [place], [address], 01/27/2024 20:07:00 01/27/20 24 01/27/2024 CBC/C OMPLE TE BLD COUNT W/DIF F mean red cell hemoglobin 32.9 pg 27.0-3 3.0 Not Available [facility] (Lab) [address] [place], [address], 01/27/2024 20:07:00 01/27/20 24 01/27/2024 CBC/C OMPLE TE BLD COUNT W/DIF F mean RBC HGB concentratio n 33.8 g/dL 31.0-3 6.0 Not Available [facility] (Lab) [address] [place], [address], 01/27/2024 20:07:00 01/27/20 24 01/27/2024 CBC/C OMPLE TE BLD COUNT W/DIF F red cell distribution width 13.5 % 11.8-1 5.5 Not Available [facility] (Lab) [address] [place], [address], 01/27/2024 20:07:00 01/27/20 24 01/27/2024 CBC/C OMPLE TE BLD COUNT W/DIF F platelets 190 x10'3 /uL 150-40 0 Not Available [facility] (Lab) [address] [place], [address], 01/27/2024 20:07:00 01/27/20 24 01/27/2024 CBC/C OMPLE TE BLD COUNT W/DIF F mean platelet volume 11.3 fL 9.0-12 .4 Not Available [facility] (Lab) [address] [place], [address], 01/27/2024 20:07:00 01/27/20 24 01/27/2024 CBC/C OMPLE TE BLD COUNT W/DIF F neutrophils 60.5 % 39.0-7 2.0 Not Available [facility] (Lab) [address] [place], [address], 01/27/2024 20:07:00 01/27/20 24 01/27/2024 CBC/C OMPLE TE BLD COUNT W/DIF F lymphocytes 20.6 % 16.0-4 7.0 Not Available [facility] (Lab) [address] [place], [address], 01/27/2024 20:07:00 01/27/20 24 01/27/2024 CBC/C OMPLE TE BLD COUNT W/DIF F monocytes 7.3 % 5.0-12 .0 Not Available [facility] (Lab) [address] [place], [address], 01/27/2024 20:07:00 01/27/2001/27/2024 CBC/C OMPLE TE BLD COUNT W/DIF F eosinophils 10.0 % 1.0-7. 0 high Not Available [facility] (Lab) [address] [place], [address], 01/27/2024 20:07:00 01/27/20 24 01/27/2024 CBC/C OMPLE TE BLD COUNT W/DIF F basophils 1.2 % 0.0-2. 0 Not Available [facility] (Lab) [address] [place], [address], 01/27/2024 20:07:00 01/27/20 24 01/27/2024 CBC/C OMPLE TE BLD COUNT W/DIF F immature granulocytes 0.4 % 0.00-0 .50 Not Available [facility] (Lab) [address] [place], [address], 01/27/2024 20:07:00 01/27/20 24 01/27/2024 CBC/C OMPLE TE BLD COUNT W/DIF F neutrophils, absolute count 3.15 x10'3 /uL 1.5-8. 0 Not Available [facility] (Lab) [address] [place], [address], 01/27/2024 20:07:00 01/27/20 24 01/27/2024 CBC/C OMPLE TE BLD COUNT W/DIF F lymphocytes, absolute count 1.07 x10'3 /uL 1.07-3 .43 Not Available [facility] (Lab) [address] [place], [address], 01/27/2024 20:07:00 01/27/20 24 01/27/2024 CBC/C OMPLE TE BLD COUNT W/DIF F monocytes, absolute count 0.38 x10'3 /uL 0.29-0 .99 Not Available [facility] (Lab) [address] [place], [address], 01/27/2024 20:07:00 01/27/20 24 01/27/2024 CBC/C OMPLE TE BLD COUNT W/DIF F eosinophils, absolute count 0.52 x10'3 /uL 0.02-0 .53 Not Available [facility] (Lab) [address] [place], [address], 01/27/2024 20:07:00 01/27/20 24 01/27/2024 CBC/C OMPLE TE BLD COUNT W/DIF F basophils, absolute count 0.06 x10'3 /uL 0.01-0 .08 Not Available [facility] (Lab) [address] [place], [address], 01/27/2024 20:07:00 01/27/20 24 01/27/2024 CBC/C OMPLE TE BLD COUNT W/DIF F immature granulocytes ,absolute 0.02 x10'3 /uL 0.00-0 .05 Not Available [facility] (Lab) [address] [place], [address], 01/27/2024 20:07:00 01/27/20 24 01/27/2024 CBC/C OMPLE TE BLD COUNT W/DIF F nucleated red blood cells 0.0 % -0 Not Available [facility] (Lab) [address] [place], [address], 01/27/2024 20:07:00 01/27/20 24 01/27/2024 CBC/C OMPLE TE BLD COUNT W/DIF F NRBC# 0.00 x10'3 /uL Not Available [facility] (Lab) [address] [place], [address], 01/27/2024 20:07:00 01/27/20 24 01/27/2024 LIPID PANEL cholesterol 124 mg/dL 140-19 9 low NIH NADIR NSUS RECOM MENDA TION FOR KALYN STERO L: ADULT CHILD LOW RISK: <200 <170 BORDE RLINE : <200- 239 ----- HIGH RISK: >240 >200 Not Available [facility] (Lab) [address] [place], [address], 01/27/2024 20:44:45 01/27/20 24 01/27/2024 LIPID PANEL triglyceride s 102 mg/dL 0-150 NIH NADIR NSUS REPOR T RECOM MENDA TION FOR TRIGL YCERI JESÚS: ADULT CHILD LOW RISK: <150 ----- BODER LINE: 150-1 99 ----- HIGH RISK: >200 ----- Not Available [facility] (Lab) [address] [place], [address], 01/27/2024 20:44:45 01/27/20 24 01/27/2024 LIPID PANEL HDL cholesterol 54 mg/dL 40- Not Available [facility] (Lab) [address] [place], [address], 01/27/2024 20:44:45 01/27/20 24 01/27/2024 LIPID PANEL LDL cholesterol, calculated 50 mg/dL 0-130 NIH NADIR NSUS REPOR T RECOM MENDA TIONS FOR LDL: ADULT CHILD LOW RISK <130 <110 (OPTI MAL LDL) <100 ----- BORDE RLINE : 130-1 59 ----- HIGH RISK: >160 >130 A TRIGL YCERI DE RESUL T >400 INVAL IDATE S THE CALCU LATIO N FOR LDL FRACT IONAT ION - THE LDL RESUL T WILL NOT BE REPOR JOCELYN. Not Available [facility] (Lab) [address] [place], [address], 01/27/2024 20:44:45 01/27/20 24 01/27/2024 COMP MET PANEL /LIVE R sodium 137 mmol/ L 137-14 5 Not Available [facility] (Lab) [address] [place], [address], 01/27/2024 20:44:51 01/27/20 24 01/27/2024 COMP MET PANEL /LIVE R potassium 4.1 mmol/ L 3.5-5. 1 Not Available [facility] (Lab) [address] [place], [address], 01/27/2024 20:44:51 01/27/20 24 01/27/2024 COMP MET PANEL /LIVE R chloride 109 mmol/ L 98-107 high Not Available [facility] (Lab) [address] [place], [address], 01/27/2024 20:44:51 01/27/20 24 01/27/2024 COMP MET PANEL /LIVE R carbon dioxide 22 mmol/ L 22-30 Not Available [facility] (Lab) [address] [place], [address], 01/27/2024 20:44:51 01/27/20 24 01/27/2024 COMP MET PANEL /LIVE R anion gap 10.1 mmol/ L 14-22 low Not Available [facility] (Lab) [address] [place], [address], 01/27/2024 20:44:51 01/27/20 24 01/27/2024 COMP MET PANEL /LIVE R glucose 91 mg/dL 70-99 Not Available [facility] (Lab) [address] [place], [address], 01/27/2024 20:44:51 01/27/20 24 01/27/2024 COMP MET PANEL /LIVE R BUN 18 mg/dL 8-19 Not Available [facility] (Lab) [address] [place], [address], 01/27/2024 20:44:51 01/27/20 24 01/27/2024 COMP MET PANEL /LIVE R creatinine 1.20 mg/dL 0.66-1 .25 Not Available [facility] (Lab) [address] [place], [address], 01/27/2024 20:44:51 01/27/20 24 01/27/2024 COMP MET PANEL /LIVE R GFR 59 Refer ence Range : [place] ge GFR Healt hy Adult : >60 mL/mi n/1.7 3 m2 Chron ic Kidne y Disea se: 15-60 mL/mi n/1.7 3 m2 Kidne y Failu re: <15/m L/min /1.73 m2 www.n iddk. nih.g ov The MDRD study equat ion has not been valid ated in child dena <18 years of age; pregn ant women ; the elder ly >85 years of age; or in some racia l or ethni c subgr oups, such as sc nics. Outsi de the valid ated bre eters , estim ated GFR is less accur ate, requi ring clini kim judgm ent on a case- by-ca se basis . Clini kim inter preta tion for other races and ages must be made by the clini chapin. The MDRD study equat ion has not been valid ated for the evalu ation of serum creat inine relat ed to nutri malik l statu s or medic ation usage . For perso ns <18 years of age, a pedia tric GFR calcu lator is avail able on the F websi te: https ://gabbie hankins.rojas santiago.o rg/pr ofess ional s/kdo qi/gf r_cal culat or Not Available [facility] (Lab) [address] [place], [address], 01/27/2024 20:44:51 01/27/20 24 01/27/2024 COMP MET PANEL /LIVE R alkaline phosphatase 62 U/L 38-126 Not Available [facility] (Lab) [address] [place], [address], 01/27/2024 20:44:51 01/27/20 24 01/27/2024 COMP MET PANEL /LIVE R alanine aminotransfe rase 45 U/L 0-50 Not Available [facility] (Lab) [address] [place], [address], 01/27/2024 20:44:51 01/27/20 24 01/27/2024 COMP MET PANEL /LIVE R aspartate aminotransfe rase 53 U/L 15-46 high Not Available [facility] (Lab) [address] [place], [address], 01/27/2024 20:44:51 01/27/20 24 01/27/2024 COMP MET PANEL /LIVE R bilirubin, total 0.80 mg/dL 0.20-1 .30 Not Available [facility] (Lab) [address] [place], [address], 01/27/2024 20:44:51 01/27/20 24 01/27/2024 COMP MET PANEL /LIVE R bilirubin, conjugated (direct) 0.00 mg/dL 0.00-0 .30 Not Available [facility] (Lab) [address] [place], [address], 01/27/2024 20:44:51 01/27/20 24 01/27/2024 COMP MET PANEL /LIVE R biliurubin,u ncong. (indirect) 0.50 mg/dL 0.00-1 .1 Not Available [facility] (Lab) [address] [place], [address], 01/27/2024 20:44:51 01/27/20 24 01/27/2024 COMP MET PANEL /LIVE R calcium 9.4 mg/dL 8.4-10 .2 Not Available [facility] (Lab) [address] [place], [address], 01/27/2024 20:44:51 01/27/20 24 01/27/2024 COMP MET PANEL /LIVE R total protein 6.3 g/dL 6.3-8. 2 Not Available [facility] (Lab) [address] [place], [address], 01/27/2024 20:44:51 01/27/20 24 01/27/2024 COMP MET PANEL /LIVE R albumin 3.9 g/dL 3.0-4. 4 Not Available [facility] (Lab) [address] [place], [address], 01/27/2024 20:44:51 01/27/20 24 01/27/2024 COMP MET PANEL /LIVE R globulin 2.4 g/dL 2.6-4. 2 low Not Available [facility] (Lab) [address] [place], [address], 01/27/2024 20:44:51 01/27/20 24 01/27/2024 COMP MET PANEL /LIVE R A/G ratio 1.6 ratio 1.0-2. 0 Not Available [facility] (Lab) [address] [place], [address], 01/27/2024 20:44:51 01/27/20 24 01/27/2024 GGT/G -GLUT AMYL TRANS FERAS E gamma-glutam yl transferase 25 U/L 12-58 Not Available [facility] (Lab) [address] [place], [address], 01/27/2024 20:44:55 01/27/20 24 01/27/2024 VITAM IN D 25-HY DROXY vd25oh 40.4 NG/mL 30-100 Vitam in D Statu s: Defic ient: <20 ng/mL Insuf ficie nt: 20-29 ng/mL Suffi cient : 30-10 0 ng/mL Not Available [facility] (Lab) [address] [place], [address], 01/27/2024 20:59:57 01/27/20 24 01/27/2024 TSH W/REF JALEESA FT4 TSH with reflex free T4 0.968 uIU/m L 0.465- 4.680 Not Available [facility] (Lab) [address] [place], [address], 01/27/2024 21:07:55 01/27/20 24 01/27/2024 HEPAT ITIS ACUTE PANEL hepatitis A IgM antibody NON-RE ACTIVE non-re active For sampl es repor jocelyn as Chang crane React robina for HAV IgM, it is recom elizabeth d a new speci men be obtai damien in 2 weeks and retes jocelyn. Not Available [facility] (Lab) [address] [place], [address], 01/27/2024 21:29:42 01/27/20 24 01/27/2024 HEPAT ITIS ACUTE PANEL hepatitis A virus signal/cutof 0.00 0.00-0 .79 Not Available [facility] (Lab) [address] [place], [address], 01/27/2024 21:29:42 01/27/20 24 01/27/2024 HEPAT ITIS ACUTE PANEL hepatitis B core IgM antibody NON-RE ACTIVE non-re active Not Available [facility] (Lab) [address] [place], [address], 01/27/2024 21:29:42 01/27/20 24 01/27/2024 HEPAT ITIS ACUTE PANEL HBV core IgM signal/cutof f 0.02 0.00-1 .10 Not Available [facility] (Lab) [address] [place], [address], 01/27/2024 21:29:42 01/27/20 24 01/27/2024 HEPAT ITIS ACUTE PANEL hepatitis B surface antigen NON-RE ACTIVE non-re active All speci mens react robina for Hepat itis B Surfa ce Antig en will refle x to refer ral lab confi rmato ry testi ng. Not Available [facility] (Lab) [address] [place], [address], 01/27/2024 21:29:42 01/27/20 24 01/27/2024 HEPAT ITIS ACUTE PANEL HBV surf.antigen signal/cutof f 0.09 0.00-0 .99 Not Available [facility] (Lab) [address] [place], [address], 01/27/2024 21:29:42 01/27/20 24 01/27/2024 HEPAT ITIS ACUTE PANEL hepatitis C antibody NON-RE ACTIVE non-re active All speci mens react robina for Hepat itis C Virus antib miguel will refle x to PCR confi rmato ry testi ng. Pleas e allow 48-72 hours for resul ts. Not Available [facility] (Lab) [address] [place], [address], 01/27/2024 21:29:42 01/27/20 24 01/27/2024 HEPAT ITIS ACUTE PANEL hepatitis C virus signal/cutof 0.20 0.00-0 .99 Not Available [facility] (Lab) [address] [place], [address], 01/27/2024 21:29:42 01/27/20 24 01/27/2024 VITAM IN B12 (ABIGAIL DEANNA ) vb12 380 pg/mL 239-93 1 Not Available [facility] (Lab) [address] [place], [address], 01/27/2024 21:58:14 01/27/20 24 01/27/2024 FOLAT E, SERUM /PLAS MA folate >20.0 NG/mL 2.76-2 0.0 Not Available [facility] (Lab) [address] [place], [address], 01/27/2024 21:58:18 12/16/19 24 12/16/2023 CT, head + neck, w/o contr ast No observ ation record ed. [email or web address] [facility] [address] [place], [address], 12/19/2023 09:26:47 05/20/19 25 05/18/2024 LDCT, chest , for lung cance r gladise lesli [facility] [address] [facility] [place] [address] Patien t Name: MALU BOONE Access ion #: [id number] Sex: M : 1950 1 Locati on: RAD Attend ing Physic hemal: FABIO BERMAN Orderi Physic hemal: FABIO BERMAN Exam Date: 025 10:11 AM Exam Name: CT LOW DOSE CNCR SCREEN ING Admitt ing Diagno sis(es ): RADIOL OGY REPORT - FINAL EXAM: CT LOW DOSE CNCR SCREEN ING HISTOR Y: LDCT chest for lung cancer screen ing 73-yea r-old male smoker with lung cancer screen ing. COMPAR ASA: CT scan of the chest dated 2023. TECHNI QUE: Noncon trast helica l CT images of the chest were perfor med utiliz ing low dose lung cancer screen ing protoc ol. Sagitt al and champagne l reform atted images were obtain ed. This CT exam was perfor med using one or more of the follow ing dose reduct ion techni ques: Automa jocelyn exposu re contro l, adjust ment of the mA and/or kV accord ing to patien t size, or use of iterat robina recons tructi on techni que. Radiat ion Dose Inform ation: CT Dose: CTDI volume is 1.3 mGy. Dose-l cele ocampo t is 47.4 mGy*cm . Page 1 of [address] [facility] Patien t Name: MALU BOONE Access ion #: [id number] Sex: M : 1950 1 Exam Date: 025 10:11 AM Exam Name: CT LOW DOSE CNCR SCREEN ING Admitt ing Diagno sis(es ): FINDIN GS: There is a 2.5 mm pleura l based noncal cified pulmon jay jay nodule along the right obliqu e fissur e (image 156, series 206). There is a stable 5 mm noncal cified pulmon jay jay nodule along the right horizo ntal fissur e (image 159, series 206). There is a stable 5.5 mm ovoid noncal cified pulmon jay jay nodule along the right horizo ntal fissur e more anteri servando (image 171, series 206). No consol idativ e infilt rates, pneumo thorax , pleura l effusi ons, or pulmon jay jay edema. There is mild to modera te parase ptal emphys ghazal and centri lobula r emphys ghazal, greate st in the upper lobes. There are calcif ied granul omas in the left lung. There are mildly promin ent medias tinal lymph nodes, simila r to that seen previo usly. There are calcif ied lymph nodes in the subcar inal region and left hilum. There is ectasi a of the centra l pulmon jay jay arteri es. The heart is not enlarg ed. There are extens robina champagne ry artery calcif icatio ns. No thorac ic aortic aneury sm. The thyroi d is atroph ic or surgic ally absent . There are calcif ied granul omas in the liver and spleen . There is a right train driver ior hepati c cyst, not fully imaged here. IMPRES FLORENTIN: 1. Subcen timete r noncal cified pulmon jay jay nodule s in the right lung as detail ed above, stable . 2. Emphys ghazal. 3. Old granul omatou s diseas e of the chest, liver, and spleen . 4. Pulmon jay jay arteri al hypert ension . 5. Champagne ry artery diseas e. 6. Mildly promin ent medias tinal lymph nodes, stable . Lung-R ADS 2. Benign . Contin ue annual screen ing with LDCT in 12 months . Lung-R ADS v2022. Page 2 of 3 [facility] Patien t Name: MALU BOONE Access ion #: [id number] Sex: M : 1950 1 Exam Date: 10:11 AM Exam Name: CT LOW DOSE CNCR SCREEN ING Admitt ing Diagno sis(es ): Create d and electr onical ly signed by: Alfonzo ames MD Signed Date: 10:40 AM (CT) Dictat ed by: Alfonzo ames MD DD: 10:40 AM (CT) DT: 10:40 AM (CT) Page 3 of 3 INTERFACE [facility] (Imaging) [address] [place], [address], 05/19/2024 11:43:16 05/20/19 25 05/18/2024 LDCT, chest , for lung cance r aldo gog No observ ation record ed. [facility] [address] [place], [address], 05/19/2024 11:56:30 06/10/19 25 06/05/2024 imagi ng/di agnos tic resul t No observ ation record ed. [facility] [address], [place], [address], 06/09/2024 11:43:02 06/19/19 25 06/18/2024 imagi ng/di agnos tic resul t No observ ation record ed. [facility] [address], [place], [address], 06/18/2024 14:02:47 07/17/19 25 07/16/2024 imagi ng/di carolyn tic resul t No observ ation record ed. [facility] [address] [facility], [place], [address], 07/16/2024 16:26:35 Result Notes Documentation Provider Name and Address Organization Details Recorded Time Ldct, Chest, For Lung Cancer Screening : [facility] [address] [place] [address] Patient Name: MALU MENDIOLA Sex: M : 1950 Location: [facility] Attending Physician: BERT MADDEN Ordering Physician: BERT MADDEN Exam Date: 05/18/2024 10:11 AM Exam Name: CT LOW DOSE CNCR SCREENING Admitting Diagnosis(es): RADIOLOGY REPORT - FINAL EXAM: CT LOW DOSE CNCR SCREENING HISTORY: LDCT chest for lung cancer screening 73-year-old male smoker with lung cancer screening. COMPARISON: CT scan of the chest dated 05/15/2023. TECHNIQUE: Noncontrast helical CT images of the chest were performed utilizing low dose lung cancer screening protocol. Sagittal and coronal reformatted images were obtained. This CT exam was performed using one or more of the following dose reduction techniques: Automated exposure control, adjustment of the mA and/or kV according to patient size, or use of iterative reconstruction technique. Radiation Dose Information: CT Dose: CTDI volume is 1.3 mGy. Dose-length product is 47.4 mGy*cm. Page [address] [facility] Patient Name: MALU MENDIOLA Sex: M : 1950 Exam Date: 05/18/2024 10:11 AM Exam Name: CT LOW DOSE CNCR SCREENING Admitting Diagnosis(es): FINDINGS: There is a 2.5 mm pleural based noncalcified pulmonary nodule along the right oblique fissure (image 156, series 206). There is a stable 5 mm noncalcified pulmonary nodule along the right horizontal fissure (image 159, series 206). There is a stable 5.5 mm ovoid noncalcified pulmonary nodule along the right horizontal fissure more anteriorly (image 171, series 206). No consolidative infiltrates, pneumothorax, pleural effusions, or pulmonary edema. There is mild to moderate paraseptal emphysema and centrilobular emphysema, greatest in the upper lobes. There are calcified granulomas in the left lung. There are mildly prominent mediastinal lymph nodes, similar to that seen previously. There are calcified lymph nodes in the subcarinal region and left hilum. There is ectasia of the central pulmonary arteries. The heart is not enlarged. There are extensive coronary artery calcifications. No thoracic aortic aneurysm. The thyroid is atrophic or surgically absent. There are calcified granulomas in the liver and spleen. There is a right posterior hepatic cyst, not fully imaged here. IMPRESSION: 1. Subcentimeter noncalcified pulmonary nodules in the right lung as detailed above, stable. 2. Emphysema. 3. Old granulomatous disease of the chest, liver, and spleen. 4. Pulmonary arterial hypertension. 5. Coronary artery disease. 6. Mildly prominent mediastinal lymph nodes, stable. Lung-RADS 2. Benign. Continue annual screening with LDCT in 12 months. Lung-RADS v2022. Page [address] [facility] Patient Name: MALU MENDIOLA Sex: M : 1950 Exam Date: 05/18/2024 10:11 AM Exam Name: CT LOW DOSE CNCR SCREENING Admitting Diagnosis(es): Created and electronically signed by: Alfonzo Shannon MD Signed Date: 05/19/2024 10:40 AM (CT) Dictated by: Alfonzo Shannon MD (CT) (CT) Page 3 of 3 Not Available [facility] 05/19/2024 11:43:16 Problems Name Problem SNOMED Code Status Onset Date Resolution Date Notes Provider Name and Address Organization Details Recorded Time Gout 38099469 Active 2022 Not Available [facility] 3 22:18:18 Cough 88054595 Active 2023 QUANG [place], [place] [employer] [facility] 4 13:29:41 Hyperlipid emia 01979011 Active 2023 Bert yo MD [address], [place], [address] , [facility] 4 14:07:17 Vitamin D deficiency 20712418 Active 2023 Bert yo MD [address], [facility] [address], [place], [address] , [facility] 4 14:08:57 Liver enzymes level above reference range 817047881 Active 2023 Bert yo MD [address], [place], [address] , [facility] 4 14:11:27 Pain of left shoulder joint [id number] Active 2023 Bert yo MD [address], [place], [address] , [facility] 4 14:31:26 Serum vitamin B12 below reference range 857509770 Active 2023 Bibi Springer MA null, [facility] 4 17:27:19 Steatotic liver disease 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 Active 2023 Bibi Springer MA null, [facility] 4 15:22:15 Cobalamin deficiency 586490176 Active 2023 QUANG Fan null, [facility] 4 10:14:03 Chronic obstructiv e pulmonary disease 93746768 Active 2023 ELGIN Garcia, [facility] 4 15:59:38 Pain of left hand 8328922916251 03 Active 2023 Bert yo MD [address], [place], [address] , [facility] 4 10:56:05 Insect bite - wound 119333934 Active 2023 Bert yo MD [address], [place], [address] , [facility] 4 17:27:55 Eruption 938996354 Active 2023 Bert yo MD [address], [place], [address] , [facility] 4 17:38:28 Coronary arterioscl erosis 12104452 Active 2023 Bert yo MD [address], [place], [address] , [facility] 4 17:46:17 Chronic kidney disease 574460627 Active 2023 Bert yo MD [address], [place], [address] , [facility] 4 18:06:05 Allergic contact dermatitis 066225126 Active 2023 QUANG Summers null, [facility] 4 09:50:57 Carotid artery stenosis 58841046 Active 2023 Bert yo MD [address], [place], [address] , [facility] 4 15:35:42 Bite - wound 368429569 Active 2024 Daly Torres MA null, [facility] 5 12:42:37 Inflammato ry disease of liver 778599892 Active Not Available [facility] 3 22:18:18 Hyperchole sterolemia 72629385 Active 2020 Not Available [facility] 3 22:18:18 Liver function tests outside reference range 065646409 Active Not Available [facility] 3 22:18:18 Serum creatinine above reference range 466090639 Active Not Available [facility] 3 22:18:18 On examinatio n - rash present Active Not Available [facility] 3 22:18:18 Anemia 936780915 Active Not Available [facility] 3 22:18:18 Bronchitis 05232070 Active 2016 Not Available [facility] 3 22:18:18 Hypothyroi dism 74653390 Active Not Available [facility] 3 22:18:18 Olecranon bursitis 398551520 Active Not Available [facility] 3 22:18:18 Multiple nodules of lung 464831818 Active 2019 Not Available [facility] 3 22:18:18 Essential hypertensi on 56212998 Active Not Available [facility] 3 22:18:18 Porphyria cutanea tarda 58882291 Active 2018 Not Available [facility] 3 22:18:18 Rhinitis 11936475 Active 2019 Not Available [facility] 3 22:18:18 Neck pain 82542911 Active Not Available [facility] 3 22:18:18 Skin lesion 76837216 Active Not Available [facility] 3 22:18:18 Problem Notes None recorded. Procedures Surgical History Date Name Laterality Status Provider Name and Address Organization Details Recorded Time 10/21/19 Medicare Wellness CPT Code, subsequent completed Abdirahman Duvall LPN [employer] 10/21/2023 08:45:59 10/07/19 Chronic care management services completed Suze Thibodeaux [facility] [employer] 10/07/2023 13:36:09 09/07/19 24 Chronic care management services completed Suze Thibodeaux [facility] [employer] [facility] [employer] [facility] 09/07/2023 13:03:43 07/31/19 24 Chronic care management services completed Suze Thibodeaux [facility]CM [facility] [employer] [facility] 07/31/2023 17:39:59 07/25/19 24 procedure on heart completed Suze Thibodeaux [facility] [employer] [facility] 07/31/2023 17:36:25 01/29/20 14 Colonoscopy completed Not Available [facility] 05/10/19 04:42:19 insertion of carotid artery stent completed QUANG Summers [facility] [employer] [facility] 05/21/2024 09:21:59 Imaging Results None recorded. Procedure Notes None recorded. Medical Equipment None Reported. Allergies Allergen ID Allergen Name Allergen Category Reaction Reaction Severity Criticality Documentation Date Start Date Code Code System Note Provider Name and Address Organization Details Recorded Time 7131 hydrochlo rothiazid e medicatio n other Not available Not available 05/09/2022 5487 RxNorm Blist ers on hands Not Available [facility] 04:56:35 Medications Name Sig Start Date Stop Date Status Note LastModified by Organization Details LastModified Time losartan 50 mg tablet TAKE 1 TABLET BY MOUTH EVERY DAY 05/21 completed Not Available Not Available Not Available nifedipin e ER 30 mg tablet,ex tended release 24 hr TAKE 1 TABLET BY MOUTH EVERY DAY active Not Available Not Available No t Available carvedilo l 25 mg tablet TAKE 1 TABLET BY MOUTH TWICE A DAY active Not Available Not Available No t Available prednison e 10 mg tablet Take 3 tablets po for 2 days, take 2 tablets po for 2 days, take 1 tablet po for 2 days 04/12 completed Not Available Not Available Not Available doxycycli ne hyclate 100 mg capsule TAKE 1 CAPSULE BY MOUTH TWICE DAILY FOR 1 WEEK 11/01 completed Not Available Not Available Not Available clindamyc in HCl 300 mg capsule TAKE 1 CAPSULE BY MOUTH EVERY 6 HOURS FOR 10 DAYS 12/06 completed Not Available Not Available Not Available cetirizin e 10 mg tablet TAKE 1 TABLET BY MOUTH EVERY DAY NEEDED 08/20 completed Not Available Not Available Not Available azithromy brie 250 mg tablet TAKE 2 TABLETS BY MOUTH FOR 1 DAY THEN TAKE 1 TABLET BY MOUTH DAILY FOR 4 DAYS 03/20 completed Not Available Not Available Not Available benzonata te 200 mg capsule TAKE 1 CAPSULE BY MOUTH THREE TIMES DAILY NEEDED 03/20 completed Not Available Not Available Not Available metoprolo l succinate ER 50 mg tablet,ex tended release 24 hr TAKE 1 TABLET BY MOUTH EVERY DAY 05/21 completed Not Available Not Available Not Available cephalexi n 250 mg capsule TAKE 1 CAPSULE BY MOUTH EVERY 6 HOURS FOR 7 DAYS 10/20 completed Not Available Not Available Not Available meloxicam 15 mg tablet TAKE 1 TABLET BY MOUTH EVERY DAY NEEDED 05/21 completed Not Available Not Available Not Available lisinopri l 20 mg tablet TAKE 1 TABLET BY MOUTH TWICE DAILY 06/02 completed changed by cardio Not Available Not Available Not Available prednison e 20 mg tablet TK 2 TS PO QD FOR 5 DAYS active Not Available Not Available No t Available isosorbid e mononitra te ER 30 mg tablet,ex tended release 24 hr Take 1 tablet every day by oral route for 90 days. 2024 active Not Available Not Available Not Avai lable metoprolo l succinate ER 100 mg tablet,ex tended release 24 hr TAKE 1 TABLET BY MOUTH EVERY DAY 08/20 completed Not Available Not Available Not Available Flonase 50 mcg/actua tion nasal spray,doretha pension Inhale 2 sprays every day by intranas al route. 09/05 completed Not Available Not Available Not Available clopidogr el 75 mg tablet TAKE 1 TABLET BY MOUTH EVERY DAY active Not Available Not Available No t Available amlodipin e 5 mg tablet TAKE 1 TABLET BY MOUTH EVERY DAY 08/20 completed Not Available Not Available Not Available sulfameth oxazole 800 mg-trimet hoprim 160 mg tablet TK 1 T PO Q 12 H UTD FOR 7 DAYS 08/15 completed Not Available Not Available Not Available peg-elect rolyte solution 420 gram oral solution MIX AND DRINK 1/2 AT 5 PM ON 05/07 AND 1/2 AT 5 AM ON 05/08 completed Not Available Not Available Not Available triamcino lone acetonide 0.1 % topical cream APPLY TO THE AFFECTED AREA ON BACK TWICE DAILY FOR 2 WEEKS active Not Available Not Available No t Available levothyro xine 75 mcg tablet TAKE 1 TABLET BY MOUTH EVERY DAY 04/04 completed Not Available Not Available Not Available levothyro xine 100 mcg tablet TAKE 1 TABLET BY MOUTH EVERY DAY active Not Available Not Available No t Available Soma 350 mg tablet Take 1 tablet every day by oral route at bedtime. 04/23 completed Not Available Not Available Not Available benzonata te 100 mg capsule TK 2 CS PO TID PRN 06/02 completed Not Available Not Available Not Available promethaz ine-pheny lephrine- codeine 6.25 mg-5 mg-10 mg/5 mL oral syrup TK 5 ML PO Q 4 H 04/12 completed Not Available Not Available Not Available levothyro xine 50 mcg tablet TK 1 T PO ONCE D 04/23 completed Not Available Not Available Not Available cephalexi n 500 mg capsule TAKE 1 CAPSULE BY MOUTH TWICE A DAY 7 DAYS 08/20 completed Not Available Not Available Not Available cyanocoba deanna (vit B-12) 1,000 mcg/mL injection solution Inject 1 mL every week by subcutan eous route for 30 days. 08/20 completed Not Available Not Available Not Available lisinopri l 10 mg tablet TAKE 1 TABLET BY MOUTH EVERY DAY 04/23 completed Not Available Not Available Not Available indometha brie 50 mg capsule TK 1 C PO TID WF OR MILK 11/01 completed takes prn for gout flare-up Not Available Not Available Not Available nitroglyc tino 0.4 mg sublingua l tablet PLEASE SEE ATTACHED FOR DETAILED DIRECTIO NS active Not Available Not Available No t Available lisinopri l 20 mg-hydroc hlorothia zide 25 mg tablet TK 1 T PO QD. STOP LISINOPR IL 10 MG 01/06 completed Not Available Not Available Not Available folic acid 1 mg tablet TAKE 1 TABLET BY MOUTH EVERY DAY active Not Available Not Available No t Available etodolac 400 mg tablet Take 1 tablet twice a day by oral route for 30 days. 09/23 completed Not Available Not Available Not Available monteluka st 10 mg tablet TK 1 T PO QD active Not Available Not Available No t Available hydroxyzi ne HCl 25 mg tablet Take 1 tablet 3 times a day by oral route as needed. active Not Available Not Available No t Available aspirin 81 mg tablet Take 1 tablet every day by oral route. active Not Available Not Available No t Available hydrochlo rothiazid e 25 mg tablet TAKE 1 TABLET BY MOUTH EVERY DAY 12/09 completed Not Available Not Available Not Available furosemid e 20 mg tablet TAKE 1 TABLET BY MOUTH ONCE DAILY NEEDED FOR ANKLE SWELLING 08/20 completed Not Available Not Available Not Available metoprolo l succinate ER 25 mg tablet,ex tended release 24 hr TAKE 1 TABLET BY MOUTH DAILY 10/20 completed Not Available Not Available Not Available ergocalci ferol (vitamin D2) 1,250 mcg (50,000 unit) capsule TAKE 1 CAPSULE BY MOUTH EVERY WEEK 05/21 completed Not Available Not Available Not Available methylpre dnisolone 4 mg tablets in a dose pack TAKE 6 TABLETS ON DAY 1 DIRECTED ON PACKAGE AND DECREASE BY 1 TAB EACH DAY FOR A TOTAL OF 6 DAYS 01/26 completed Not Available Not Available Not Available colchicin e 0.6 mg tablet TAKE 1 TABLET BY MOUTH EVERY DAY FOR 10 DAYS 08/20 completed Not Available Not Available Not Available ondansetr on 4 mg disintegr ating tablet 08/20 completed Not Available Not Available Not Available losartan 100 mg tablet TAKE 1 TABLET BY MOUTH EVERY DAY active Not Available Not Available No t Available doxycycli ne hyclate 100 mg tablet TK 1 T PO BID FOR 10 DAYS 10/27 completed Not Available Not Available Not Available Laxative (bisacody l) 5 mg tablet TK 6 TS PO AT 8 AM ON 05/07 completed Not Available Not Available Not Available rosuvasta tin 5 mg tablet TAKE 1 TABLET BY MOUTH EVERY DAY 07/17 completed Not Available Not Available Not Available rosuvasta tin 40 mg tablet TAKE 1 TABLET BY MOUTH EVERY DAY IN THE EVENING active Not Available Not Available No t Available Vitamin C 2018 active Not Available Not Available Not Avai lable iron qd 06/02 completed Not Available Not Available Not Available amlodipin e 07/30 completed Not Available Not Available Not Available B12 04/12 completed Not Available Not Available Not Available Suprep Bowel Prep Kit 17.5 gram-3.13 gram-1.6 gram oral solution MIX AND DRINK UTD active Not Available Not Available No t Available Vitals Date Recorded Body height Body mass index (BMI) Body weight Body temperature Heart rate Systolic And Diastolic Provider Name and Address Organization Details Last Updated DateTime 5 170.18 cm 28 kg/m2 19566.0 3 g 97.7 [degF] 72 /min 124/76 mm[Hg] Jenna Riziv ADIELCarlos [facility] [employer] [facility] 5 09:23:39 Date Recorded Body height Body mass index (BMI) Body weight Body temperature Heart rate Oxygen saturation Oxygen saturation in Arterial blood by Pulse oximetry Systolic And Diastolic Provider Name and Address Organization Details Last Updated DateTime 5 170.18 cm 28.9 kg/m2 98551.7 9 g 97.6 [degF] 60 /min 98 % 98 % 120/68 mm[Hg] ELGIN Velázquez [facility] [employer] [facility] 5 10:01:28 Date Recorded Body height Body mass index (BMI) Body weight Body temperature Heart rate Oxygen saturation Oxygen saturation in Arterial blood by Pulse oximetry Systolic And Diastolic Provider Name and Address Organization Details Last Updated DateTime 4 170.18 cm 26.5 kg/m2 80236.1 1 g 97.7 [degF] 61 /min 99 % 99 % 140/58 mm[Hg] Lilly Portillo MA [facility] [employer] [facility] 4 17:10:23 Date Recorded Body height Body mass index (BMI) Body weight Body temperature Heart rate Systolic And Diastolic Provider Name and Address Organization Details Last Updated DateTime 4 170.18 cm 26.8 kg/m2 16814.3 g 97.9 [degF] 66 /min 140/80 mm[Hg] QUANG Summers [facility] [employer] [facility] 4 14:20:31 Date Recorded Body height Body mass index (BMI) Body weight Body temperature Heart rate Oxygen saturation Oxygen saturation in Arterial blood by Pulse oximetry Systolic And Diastolic Provider Name and Address Organization Details Last Updated DateTime 4 170.18 cm 27.4 kg/m2 56576.6 6 g 97.5 [degF] 72 /min 98 % 98 % 160/68 mm[Hg] ELGIN Velázquez [facility] [employer] [facility] 4 09:14:27 Social History Question Answer Notes LastModified by Organization Details LastModified Time Tobacco Smoking Status Former Smoker quit 10/08/2013 Not Available [employer] 05/09/2022 04:41:48 Do You Have An Advance Directive? No Patient Is Currently Working On One. MIGRATION.030 [id number] Information not available 05/09/2022 How Many Years Have You Consumed Alcohol? 40 [email or web address] Information not available 10/21/2023 Do You Wear A Helmet When Biking? No Does Not Bike [email or web address] Information not available 10/21/2023 Are You Blind Or Do You Have Difficulty Seeing? No MIGRATION.030 [id number] Information not available 05/09/2022 Is Blood Transfusion Acceptable In An Emergency? Yes Information not available 10/21/2023 What Is Your Level Of Caffeine Consumption? Moderate Coffee 1 Cup MIGRATION.030 [id number] Information not available 05/09/2022 How Much Tobacco Do You Chew? None MIGRATION.030 [id number] Information not available 05/09/2022 In The 14 Days Before Symptom Onset, Have You Had Close Contact With A Laboratory-conf irmed COVID-19 While That Case Was Ill? No MIGRATION.030 [id number] Information not available 05/09/2022 In The 14 Days Before Symptom Onset, Have You Had Close Contact With A Person Who Is Under Investigation For COVID-19 While That Person Was Ill? No MIGRATION.030 [id number] Information not available 05/09/2022 Are You Deaf Or Do You Have Serious Difficulty Hearing? No MIGRATION.030 [id number] Information not available 05/09/2022 What Type Of Diet Are You Following? REGULAR MIGRATION.030 [id number] Information not available 05/09/2022 Which Illicit Or Recreational Drugs Have You Used? None MIGRATION.030 [id number] Information not available 05/09/2022 What Is The Highest Grade Or Level Of School You Have Completed Or The Highest Degree You Have Received? [id number] MIGRATION.030 [id number] Information not available 05/09/2022 Have There Been Any Changes To Your Family Or Social Situation? No MIGRATION.030 [id number] Information not available 05/09/2022 What Is The Fluoride Status Of Your Home? Unknown MIGRATION.030 [id number] Information not available 05/09/2022 When Did You Quit Smoking? 6-10yearssincelast cigarette MIGRATION.030 [id number] Information not available 05/09/2022 Are There Any Guns Present In Your Home? Yes MIGRATION.0301 [id number] Information not available 05/09/2022 Do You Use Insect Repellent Routinely? No MIGRATION.0301 [id number] Information not available 05/09/2022 Where Do You Live? SingleLevelHouse MIGRATION.0301 [id number] Information not available 05/09/2022 Presence Of Domestic Violence No [email or web address] Information not available 10/21/2023 Guns Present In The Home? No [email or web address] Information not available 10/21/2023 Are You Able To Care For Yourself? Yes Information not available 10/21/2023 Are You Blind Or Do Yo Have Difficulty Seeing? No [email or web address] Information not available 10/21/2023 Are You Deaf Or Do You Have Serious Difficulty Hearing? No [email or web address] Information not available 10/21/2023 General Stress Level? Moderate [email or web address] Information not available 10/21/2023 Live Alone Of With Others? With Others Information not available 10/21/2023 Do You Have A Medical Power Of Loan Analyst? No MIGRATION.0301 [id number] Information not available 05/09/2022 What Was The Date Of Your Most Recent Tobacco Screening? 08/20/2024 [email or web address] Information not available 08/20/2024 How Many Children Do You Have? 4 2 [email or web address] Information not available 10/21/2023 Have You Ever Been Counseled For Unhealthy Alcohol Use? No MIGRATION.0301 [id number] Information not available 05/09/2022 Do You Have Any Pets? No MIGRATION.0301 [id number] Information not available 05/09/2022 What Is Your Relationship Status? MIGRATION.0301 [id number] Information not available 05/09/2022 Do You Use Your Seat Belt Or Car Seat Routinely? Yes MIGRATION.0301 [id number] Information not available 05/09/2022 Are You Sexually Active? No [email or web address] Information not available 10/21/2023 Do You Have Smoke And Carbon Monoxide Detectors In Your Home? Yes MIGRATION.0301 [id number] Information not available 05/09/2022 At What Age Did You Start Smoking Tobacco? 13 MIGRATION.0301 [id number] Information not available 05/09/2022 Are You Passively Exposed To Smoke? No MIGRATION.0301 [id number] Information not available 05/09/2022 Are There Any Smokers In Your House? No MIGRATION.0301 152519 Information not available 05/09/2022 How Much Tobacco Do You Smoke? No MIGRATION.0301 [id number] Information not available 05/09/2022 What Types Of Sporting Activities Do You Participate In? None MIGRATION.0301 070439 Information not available 05/09/2022 Do You Use Sunscreen Routinely? No MIGRATION.0301 [id number] Information not available 05/09/2022 Has Tobacco Cessation Counseling Been Provided? No MIGRATION.0301 [id number] Information not available 05/09/2022 How Many Years Have You Smoked Tobacco? 50 MIGRATION.0301 015220 Information not available 05/09/2022 Have You Recently Traveled Abroad? No MIGRATION.0301 [id number] Information not available 05/09/2022 Do You Have Difficulty Walking Or Climbing Stairs? No MIGRATION.0301 [id number] Information not available 05/09/2022 Do You Have Any Dietary Restrictions? No MIGRATION.0301 223130 Information not available 05/09/2022 How Many Days In The Past Year Have You Consumed 5 Or More Drinks? 0 [email or web address] Information not available 10/21/2023 Sex: Unknown Functional Status Question Answer Note LastModified by xAd ion Details LastModified Time Do you or have you ever used smokeless tobacco? Never used smokeless tobacco MIGRATION.88031 06144 Information not available 05/09/2022 Are you currently employed? No [email or web address] Information not available 08/02/2022 Do you have transportation difficulties? No MIGRATION.65416 66040 Information not available 05/09/2022 Are you able to care for yourself? Yes MIGRATION.24018 56293 Information not available 05/09/2022 Do you have difficulty dressing or bathing? No MIGRATION.63166 62735 Information not available 05/09/2022 Do you or have you ever used e-cigarettes or vape? Never used electronic cigarettes MIGRATION.68635 95880 Information not available 05/09/2022 What is your exercise level? None yard work and house maintenance- active lifestyle MIGRATION.03818 61800 Information not available 05/09/2022 Do you use any illicit or recreational drugs? No MIGRATION.70458 38578 Information not available 05/09/2022 Do you or have you ever used any other forms of tobacco or nicotine? No MIGRATION.93263 79745 Information not available 05/09/2022 What is your level of alcohol consumption? Moderate beer MIGRATION.51303 31252 Information not available 05/09/2022 Are you able to walk? YESWOREST MIGRATION.48200 11969 Information not available 05/09/2022 Do you have difficulty doing errands alone? No MIGRATION.09714 95205 Information not available 05/09/2022 What is your occupation? Retired MIGRATION.70074 23407 Information not available 05/09/2022 Mental Status Question Answer Note LastModified by Organizat ion Details LastModified Time Do you feel stressed (tense, restless, nervous, or anxious, or unable to sleep at night)? [id number] MIGRATION.[id number] 26 Information not available 05/09/2022 Do you have difficulty concentrating, remembering or making decisions? No MIGRATION.63485595 26 Information not available 05/09/2022 Family History Relationship Description Onset Age of this Age Resolved Age Notes LastModified by Organization Details LastModified Time Father Aneurysm MIGRATION.891 [id number] Not available 05/09/2022 04:42:27 Father Heart disease MIGRATION.728 [id number] Not available 05/09/2022 04:42:27 Son Suicide MIGRATION.355 [id number] Not available 05/09/2022 04:42:27 Medical History Condition Response NERVE DISEASE N BLINDNESS N RHEUMATIC FEVER N KIDNEY STONES N BLADDER PROBLEMS N MRSA N OTHER # 1 N POLIO N LUNG DISEASE/DISORDER Y RADIATION / CHEMOTHERAPY N COPD N Other # 2 N BLOOD DISEASES N EAR OR HEARING PROBLEMS N MUMPS N BOWEL PROBLEMS N DEPRESSION (INCLUDING POST ) N STROKE/TIA N ULCERS N BENIGN PROSTATIC HYPERPLASIA N MEASLES N MYOCARDIAL INFARCTION N OBESITY N GERD/NAUSEA N ANEURYSM N URINARY/BLADDER/KIDNEY PROBLEMS N CORONARY ARTERY DISEASE (CAD) N ADDICTION CONCERNS N Impotence N ENDOMETRIOSIS N USE OF BLOOD THINNERS N SKIN PROBLEMS Y GASTROINTESTINAL DISORDER N PERIPHERAL VASCULAR DISEASE N MUSCLE,JOINT OR BONE PROBLEMS N GASTROINTESTINAL BLEEDING N BLOOD CLOTS N ASTHMA N CATARACTS N ERECTILE DYSFUNCTION N ARTERIAL INSUFFICIENCY Y VARICOSITIES N GI PROBLEMS N Low Testosterone N INFERTILITY N AIDS/HIV N CHEMOTHERAPY / RADIATION N LIVER DISEASE Y MALE HYPOGONADISM N HYPERTENSION Y Deficiency N TOURETTE'S N ANXIETY DISORDER N BLOOD TRANSFUSION N ANEMIA/BLOOD DISORDER Y CHRONIC EAR INFECTIONS N BRONCHITIS Y TUBERCULOSIS N GLAUCOMA N FOOT PROBLEM N DIVERTICULITIS N SLEEP APNEA N CHICKENPOX N ALLERGIES/HAYFEVER Y INFECTIOUS DISEASE N PROSTATE N HEART ARRHYTHMIA Y INSOMNIA N HIGH CHOLESTEROL / HYPERLIPIDEMIA Y EYE PROBLEMS N HYPERTHYROIDISM N EDEMA N CHRONIC PAIN SYNDROME N HYPOTHYROIDISM Y CONSTIPATION N CAROTID BLOCKAGE N BACK / NECK PROBLEMS N HAVE YOU BEEN HOSPITALIZED OR SEEN IN [facility] ER IN THE PAST YEAR ? Y ATHEROSCLEROSIS N BREAST PROBLEMS N DIALYSIS N ECZEMA N OSTEOPOROSIS N ARTHRITIS Y APPENDICITIS N DIABETES, TYPE N BAD TEETH N ENT N HEARTBURN / REFLUX N GI N AUTISM SPECTRUM DISORDER (ASD) N HEPATITIS / LIVER DISEASE Y GOUT Y SLEEP DISORDER N ALZHEIMER'S DISEASE N Brain Problems N DEMENTIA N HERPES N SEIZURES/EPILEPSY N HEADACHES/MIGRAINES Y VASCULAR DISEASE N PACEMAKER N Blood Disorder N DIZZINESS N HEART DISEASE/HEART PROBLEMS Y KIDNEY DISEASE N MULTIPLE SCLEROSIS N CANCER: SPECIFY N CARDIAC ARRHYTHMIA N ATRIAL FIBRILLATION N Gall Stones N PULMONARY EMBOLISM N AUTOIMMUNE DISEASE N Immunizations Vaccine Type Date Status Note Provider Nam e and Address Organization Details Recorded Time COVID-19, mRNA, LNP-S, PF, 100 mcg/0.5mL dose or 50 mcg/0.25mL dose 1 completed Suze Thibodeaux CCM null, [facility] 07/31/2023 17:35:27 COVID-19 vaccine, vector-nr, rS-Ad26, PF, 0.5 mL 1 completed Not Available [facility] 12/07/2022 22:18:19 influenza, unspecified formulation 7 completed Not Available [facility] 12/07/2022 22:18:19 Pneumococcal conjugate PCV20, polysaccharide HHX005 conjugate, adjuvant, PF 4 completed Bert Madden MD [address], [facility] [address], [place], [address], [facility] 05/06/2023 18:26:18 Influenza, high-dose, trivalent, PF 4 completed Bert Madden MD [address], [facility] [address], [place], [address], [facility] 01/27/2024 19:19:12 Past Encounters Encounter ID Performer Location Encounter Start Date Encounter Closed Date Diagnosis/Indication Diagnosis SNOMED-CT Code Diagnosis ICD10 Code Diagnosis Note [id number] Rey Heck MD [facility] Internal [facility] [address] [facility] [address] [address] 07/13/2020 00:00:00 07/31/2020 19:06:14 [id number] S[facility] Pulmonolo gy Josep Mercedes [address] [place] [address] 08/15/2020 00:00:00 08/15/2020 14:13:54 [id number] Rey Heck MD [facility] Internal Med [facility] [address] [facility] [address] [address] 11/02/2020 00:00:00 11/14/2020 16:18:00 [id number] Rey Heck MD [facility] Internal Med [facility] [address] [address] 03/01/2021 00:00:00 03/03/2021 15:27:39 [id number] Rey Heck MD [facility] Internal Med [facility] [address] [address] 07/05/2021 00:00:00 07/08/2021 19:47:58 [id number] Rey Heck MD [facility] Internal Med [facility] [address] [address] 11/01/2021 00:00:00 11/02/2021 08:15:02 [id number] Rey Heck MD [facility] Internal Med [facility] [address] [address] 04/05/2022 00:00:00 04/14/2022 21:37:16 [id number] Rey Heck MD [facility] Internal Med [facility] [address] [facility] [address] [address] 08/02/2022 14:57:52 08/02/2022 16:57:55 Hypercholesterolemia 01751463 E78.00 Porphyria cutanea tarda 53965504 E80.1 Essential hypertension 52929138 I10 Gout 40413058 M10.9 Hypothyroidism 55049744 E03.9 [id number] Rey Heck MD [facility] Internal Med [facility] [address] [address] 12/06/2022 11:09:43 12/06/2022 12:54:21 Hypercholesterolemia 08072089 E78.00 Essential hypertension 55274006 I10 Screening for malignant neoplasm of prostate 521164396 Z12.5 Porphyria cutanea tarda 32028964 E80.1 [id number] Rey Heck MD [facility] Internal Med [facility] [address] [facility] [address] [place] [address] 03/20/2023 11:18:21 03/20/2023 12:43:44 Hypercholesterolemia 61050966 E78.00 Porphyria cutanea tarda 73939429 E80.1 Essential hypertension 30491035 I10 Hypothyroidism 68866391 E03.9 Gout 07657087 M10.9 [id number] Bert yo MD [facility] Internal Med [facility] [address] [facility] , [place] [address] 05/06/2023 13:35:00 05/06/2023 14:47:11 Screening - NAD 633897133 Z13.9 C-scope: 05/28/2022 : Dr Álvaro Isabel: Next in 5 years Get yearly flu shotGet Tdap if not doneCan do shingrix vaccine, get COVID 19 vaccine and its boostersGe t RSV vaccineGet PCV if not done RTC in 3 months with labs, ER if worse, he and his verbalized his understand ing of the above Essential hypertension 38453007 I10 On lisinopril 20mg bidGet labs Hyperlipidemia 50295501 E78.5 On rosuvastat in 5mg daillyGet labs Hypothyroidism 89586285 E03.9 On levothyrox ine 100mcgs dailyGet US thyroid and labs Vitamin D deficiency 347 32481 E55.9 Ex-cigarette smoker 2810 04663 Z87.891 Get US AAA and LDCT done Porphyria cutanea tarda 93324933 E80.1 See hematology Anemia 579164695 D64.9 Get labs Liver enzy mes level above reference range 768402707 R74.01 Skin lesion 46371602 L98 .9 Sees dermatolog istLast 10/26/2022 Jordana Gay Pain of le ft shoulder joint 8577215204 0920938 M25.512 Has noted some discomfort in the posterior shoulder, no acute injury, no N/T or weakness, he is RHDGet xray and may need PT Administra tion of pneumococcal vaccine 28028844 Z23 [id number] Bert yo MD [facility] Internal Med [facility] [address] [facility] [address] [address] 06/03/2023 10:13:59 06/03/2023 10:59:10 Pain of left hand 7961247954 05503 M79.642 Get xray hand and also refer to Dr Zheng for his hand painGet on meloxicam, take as needed with food, all side effects explainedE R if worse, he did verbalize his understand ing of the above [id number] Bert yo MD [facility] Internal Med [address] [facility] [address] [place] [address] 07/18/2023 17:18:03 07/18/2023 17:35:28 Insect bite - wound 161168687 T14.8XXA Eruption 654036411 R21 From an insect bite, +ve redness and swelling notedGet on keflexKeep cool, clean and dryCan do OTC benadryl cream, and OTC zyrtecNoti fy if not better, ER if worse, he and his verbalized his understand ing [id number] Bert yo MD [facility] Internal Med [address] [place] [address] 07/31/2023 17:32:40 07/31/2023 17:42:15 Hypercholesterolemia 05309267 E78.00 Chronic ob structive pulmonary disease 36758164 J44.9 Hyperlipidemia 61377673 E78.5 [id number] Bert yo MD [facility] Internal Med [address] [place] [address] 09/07/2023 13:00:21 09/09/2023 17:16:30 Chronic obstructive pulmonary disease 02640722 J44.9 Essential hypertension 37562642 I10 Hyperlipidemia 88131676 E78.5 [id number] Bert yo MD [facility] Internal Med [facility] [address] [facility] [address] [place] [address] 10/07/2023 13:32:53 11/28/2023 17:22:20 Essential hypertension 92978549 I10 Hyperlipidemia 27250893 E78.5 Bronchitis 02007085 J40 Chronic ob structive pulmonary disease 35755068 J44.9 [id number] Bert yo MD [facility] Internal Med [facility] [address] [facility] [address] , [place] [address] 10/21/2023 16:47:42 10/21/2023 18:12:47 Adult health examination 768635150 Z00.00 Screening for disorder 223219321 Z13.9 Screening - NAD 39604557 3 Z13.9 C-scope: 05/28/2022 : Dr Álvaro Isabel: Next in 5 years Get yearly flu shotGet Tdap if not doneCan do shingrix vaccine, get COVID 19 vaccine and its boostersGe t RSV vaccineGet PCV if not done RTC in 3 months with labs, ER if worse, he and his verbalized his understand ing of the above Essential hypertension 52837139 I10 Not on lisinopril 20mg bidOn losartan 100mg dailyGet labs Hyperlipidemia 86231292 E78.5 On rosuvastat in 5mg daillyGet labs Hypothyroidism 74115795 E03.9 On levothyrox ine 100mcgs dailyGet US thyroid and labs Vitamin D deficiency 347 04412 E55.9 Ex-cigarette smoker 2810 12223 Z87.891 Get US AAA and LDCT done Porphyria cutanea tarda 97618747 E80.1 See hematology On folic acid Anemia 523945403 D64.9 Get labs Liver enzy mes level above reference range 856735263 R74.01 Skin lesion 74150551 L98 .9 Sees dermatolog istLast 10/26/2022 oJrdana Gay Pain of le ft shoulder joint 4182554882 7129333 M25.512 Has noted some discomfort in the posterior shoulder, no acute injury, no N/T or weakness, he is RHDGet xray and may need PT Coronary arteriosclerosis 40087983 I25.10 On amlodipine 5mg dailyOn isosorbide ER 30mg dailyOn losartan 100mg dailyOn metoprolol ER 50mg dailyOn NTG Stress test 07/15/2023 S/p stentSeen Dr Phoenix s to see Dr Lucio will see tomorrow 10/22/2023 Chronic ki dney disease 190854851 N18.9 Get a referral to nephrology [id number] Bert yo MD [facility] [address] [place] [address] 01/27/2024 14:02:23 01/27/2024 15:26:04 Screening - NAD 895031509 Z13.9 C-scope: 05/28/2022 : Dr Álvaro Isabel: Next in 5 years Get yearly flu shotGet Tdap if not doneCan do shingrix vaccine, get COVID 19 vaccine and its boostersGe t RSV vaccineGet PCV if not done RTC in 2 weeks with labs, ER if worse, he and his verbalized his understand ing of the above Essential hypertension 14110233 I10 Not on lisinopril 20mg bidOn losartan 100mg dailyGet labs Hyperlipidemia 34791070 E78.5 On rosuvastat in 5mg daillyGet labs Hypothyroidism 42561797 E03.9 On levothyrox ine 100mcgs dailyUS thyroid 05/15/2023 : Atrophy, no nodules Vitamin D deficiency 347 73858 E55.9 Ex-cigarette smoker 2810 77089 Z87.891 LDCT 05/15/2023 US AAA 05/15/2023 : Neg Porphyria cutanea tarda 34165587 E80.1 See hematology On folic acid Anemia 832930904 D64.9 Get labs Liver enzy mes level above reference range 638170740 R74.01 US liver: 05/15/2023 : Steatosis Skin lesion 69101038 L98 .9 Sees dermatolog istLast 10/26/2022 Jordana Gay Pain of le ft shoulder joint 9198238652 6931515 M25.512 Has noted some discomfort in the posterior shoulder, no acute injury, no N/T or weakness, he is RHDGet xray and may need PT Coronary arteriosclerosis 13793692 I25.10 On amlodipine 5mg dailyOn isosorbide ER 30mg dailyOn losartan 100mg dailyOn metoprolol ER 50mg dailyOn NTG Stress test 07/15/2023 S/p stentSeen Dr Phoenix s to see Dr Lucio will see tomorrow 10/22/2023 CT w/o contrast 12/16/2023 : Stenosis R ICA Chronic ki dney disease 007427436 N18.9 Get a referral to nephrology Administra tion of influenza vaccine 23061860 Z23 [id number] Bert yo MD [facility] Internal Med [facility] 15 [address] [facility], [facility] 15 [place] [address] 02/11/2024 09:04:15 02/11/2024 09:56:27 Screening - NAD 099974982 Z13.9 C-scope: 05/28/2022 : Dr Álvaro Isabel: Next in 5 years Get yearly flu shotGet Tdap if not doneCan do shingrix vaccine, get COVID 19 vaccine and its boostersGe t RSV vaccineGet PCV if not done RTC in 2 weeks with labs, ER if worse, he and his verbalized his understand ing of the above Essential hypertension 85083220 I10 Not on lisinopril 20mg bidOn amlodipine 5mg dailyOn metoprolol ER 50mg dailyOn losartan 100mg dailyGet labs Hyperlipidemia 12324885 E78.5 On rosuvastat in 5mg daillyGet labs Hypothyroidism 25458622 E03.9 On levothyrox ine 100mcgs dailyUS thyroid 05/15/2023 : Atrophy, no nodules Vitamin D deficiency 347 33709 E55.9 Ex-cigarette smoker 2810 46548 Z87.891 LDCT 05/15/2023 US AAA 05/15/2023 : Neg Porphyria cutanea tarda 56525073 E80.1 See hematology On folic acid Anemia 411960380 D64.9 Get labs Liver enzy mes level above reference range 090179715 R74.01 US liver: 05/15/2023 : Steatosis Skin lesion 67028673 L98 .9 Sees dermatolog istLast 10/26/2022 Jordana Gay Pain of le ft shoulder joint 5911326171 8973449 M25.512 Has noted some discomfort in the posterior shoulder, no acute injury, no N/T or weakness, he is RHDGet xray and may need PT Coronary arteriosclerosis 10320006 I25.10 On amlodipine 5mg dailyOn isosorbide ER 30mg dailyOn losartan 100mg dailyOn metoprolol ER 50mg dailyOn NTG Stress test 07/15/2023 S/p stentSeen Dr Phoenix s to see Dr Lucio will see tomorrow 10/22/2023 CT w/o contrast 12/16/2023 : Stenosis R ICA Chronic ki dney disease 102881420 N18.9 Get a referral to nephrology Carotid ar jemma stenosis 94124552 I65.29 CT w/o contrast 12/16/2023 : Stenosis R ICADr Carrington 12/31/2023 , referred to Dr Zarate states today 02/11/2024 that he now scheduled for surgery in March 2024 [id number] Bert yo MD [facility] Internal Med [facility] 15 [address] [facility], [address] [place] [address] 05/21/2024 09:04:19 05/21/2024 10:09:14 Screening - NAD 494108951 Z13.9 C-scope: 05/28/2022 : Dr Álvaro Isabel: Next in 5 years Get yearly flu shotGet Tdap if not doneCan do shingrix vaccine, get COVID 19 vaccine and its boostersGe t RSV vaccineGet PCV if not done RTC in 2 weeks with labs, ER if worse, he and his verbalized his understand ing of the above Essential hypertension 98318452 I10 Not on lisinopril 20mg bidOn amlodipine 5mg dailyOn metoprolol ER 50mg dailyOn losartan 100mg dailyGet labs Hyperlipidemia 06267440 E78.5 On rosuvastat in 5mg daillyGet labs Hypothyroidism 33189916 E03.9 On levothyrox ine 100mcgs dailyUS thyroid 05/15/2023 : Atrophy, no nodules Vitamin D deficiency 347 94053 E55.9 Ex-cigarette smoker 2810 73534 Z87.891 LDCT 05/15/2023 LDCT 05/18/2024 US AAA 05/15/2023 : Neg Porphyria cutanea tarda 96348505 E80.1 See hematology On folic acid Dr Paniagua 04/01/2024 , next in 6 months Anemia 392153948 D64.9 Get labs Liver enzy mes level above reference range 551509972 R74.01 US liver: 05/15/2023 : Steatosis Skin lesion 84906115 L98 .9 Sees dermatolog istLast 10/26/2022 Jordana Gay Pain of le ft shoulder joint 2537870373 2447746 M25.512 Has noted some discomfort in the posterior shoulder, no acute injury, no N/T or weakness, he is RHDGet xray and may need PT Coronary arteriosclerosis 94771425 I25.10 On amlodipine 5mg dailyOn isosorbide ER 30mg dailyOn losartan 100mg dailyOn metoprolol ER 50mg dailyOn NTG Stress test 07/15/2023 S/p stentSeen Dr Montañoeed s to see Dr Lucio will see tomorrow 10/22/2023 CT w/o contrast 12/16/2023 : Stenosis R ICA Chronic ki dney disease 442845361 N18.9 Get a referral to nephrology Carotid ar jemma stenosis 57088323 I65.29 CT w/o contrast 12/16/2023 : Stenosis R ICADr Lucio 12/31/2023 , referred to Dr Zarate states today 02/11/2024 that he now scheduled for surgery in March 2024 [id number] Bert yo MD S[facility] Internal Med [place] [address] [facility] [address] [place] [address] 08/20/2024 09:52:32 08/20/2024 10:57:54 Screening - NAD 499074198 Z13.9 C-scope: 05/28/2022 : Dr Álvaro Isabel: Next in 5 years Get yearly flu shotGet Tdap if not doneCan do shingrix vaccine, get COVID 19 vaccine and its boostersGe t RSV vaccineGet PCV if not done RTC in 3 months with labs, ER if worse, he and his verbalized his understand ing of the above Essential hypertension 56219313 I10 Not on lisinopril 20mg bidNot on amlodipine 5mg dailyNot on metoprolol ER 50mg dailyNot on losartan 100mg daily On ASAOn coreg 25mg bidOn plavixOn losartan 100mg dailyOn nifedipine ER 30mg dailyOn NTG Hyperlipidemia 82055005 E78.5 Not on rosuvastat in 5mg dailyOn rosuvastat in 40mg dailyGet labs Hypothyroidism 89641516 E03.9 On levothyrox ine 100mcgs dailyUS thyroid 05/15/2023 : Atrophy, no nodules Vitamin D deficiency 347 86307 E55.9 Ex-cigarette smoker 2810 25961 Z87.891 LDCT 05/15/2023 LDCT 05/18/2024 US AAA 05/15/2023 : Neg Porphyria cutanea tarda 11182300 E80.1 See hematology On folic acid Dr Paniagua 04/01/2024 , next in 6 months Anemia 955482253 D64.9 Get labs Liver enzy mes level above reference range 712886413 R74.01 US liver: 05/15/2023 : Steatosis Skin lesion 19314527 L98 .9 Sees dermatolog istLast 10/26/2022 Jordana Gay Pain of le ft shoulder joint 3399799037 0792920 M25.512 Has noted some discomfort in the posterior shoulder, no acute injury, no N/T or weakness, he is RHDGet xray and may need PT Coronary arteriosclerosis 44008489 I25.10 Stress test 07/15/2023 S/p stentSeen Dr Parker CT w/o contrast 12/16/2023 : Stenosis R ICA On ASAOn coreg 25mg bidOn plavixOn losartan 100mg dailyOn nifedipine ER 30mg dailyOn NTG Dr Lucio SL 07/20/2024 , next in 3 months, should also be on isosorbide , called Dr Lucio today 08/20/2024 , and confirmed he should be on the isosorbide and sent Chronic ki dney disease 168497121 N18.9 Get a referral to nephrology Carotid ar jemma stenosis 06464044 I65.29 CT w/o contrast 12/16/2023 : Stenosis R ICADr Carrington 12/31/2023 S/p R stent Dr Zarate Screening for malignant neoplasm of prostate 832149284 Z12.5 Goals Section Goal Description Progress Status Start Date LastModified by Organization Details LastModified Time Smoking Cessatio n Quits smoking Regressing active 2023 Suze Thibodeaux CCM Information not available 09/07/2023 17:07:30 Exercise Regularl y Follows a regular exercise regimen or instructed exercise plan as per care team recommendation (s) Regressing active 2023 Suze Thibodeaux CCM Information not available 09/07/2023 17:07:33 Chronic Disease Symptom Manageme nt Reports no new or worsening symptoms NoChange active 2023 Suze Thibodeaux CCM Information not available 07/31/2023 21:46:13 Follow-u p Appointm ent(s) Attends referral and/or follow-up appointment(s) as per care team recommendation (s) Progressing active 2023 Suze Thibodeaux CCM Information not available 09/07/2023 17:07:40 Diet Adherenc e Follows prescribed or recommended diet NoChange active 2023 Suze Thibodeaux CCM Information not available 07/31/2023 21:46:13 Knowledg e of Disease or Conditio n Demonstrates understanding of disease(s) or condition(s) NoChange active 2023 Suze Thibodeaux CCM Information not available 07/31/2023 21:46:13 Blood Pressure Maintains blood pressure goal as defined by care team Progressing active 2023 Suze Thibodeaux CCM Information not available 09/07/2023 17:07:44 Weight Maintena nce Exhibits stable weight with normal fluctuation NoChange active 2023 Suze Thibodeaux CCM Information not available 07/31/2023 21:46:13 Heart Rate Control Achieves target heart rate as defined by care team NoChange active 2023 Suze Thibodeaux CCM Information not available 07/31/2023 21:46:13 Decrease d Alcohol Consumpt ion Reports decreased alcohol consumption as per care team recommendation (s) Progressing active 2023 Suze Thibodeaux CCM Information not available 09/07/2023 17:07:49 Activiti es of Daily Living Performs activities of daily living independently or with minimal assistance [facility] active 2023 Suze Thibodeaux CCM Information not available 07/31/2023 21:46:13 Food Security Reports ability to access and obtain foods to meet nutritional needs [facility] Suze Thibodeaux CCM Information not available 07/31/2023 21:46:13 Fall Safety Reports no recent falls and/or fall injuries [facility]23 Suze Thibodeaux CCM Information not available 07/31/2023 21:46:13 Lipid Levels Maintains normal lipid levels as defined by care team [facility] active 2023 Suze Thibodeaux CCM Information not available 07/31/2023 21:46:13 Stroke/T IA Risk Reductio n Reduces risk factors for stroke [facility] 2023 Suze Thibodeaux CCM Information not available 07/31/2023 21:46:13 Chronic Conditio n Action Plan Follows action plan for any worsening of chronic condition(s) as per care team recommendation (s) [facility] active 2023 Suze Thibodeaux CCM Information not available 07/31/2023 21:46:13 Adequate Sleep Achieves adequate, well-rested sleep with minimal disruption [facility] active 2023 Suze Thibodeaux CCM Information not available 07/31/2023 21:46:13 Financia l Stabilit y Reports financial status and/or income meets needs [facility] active 2023 Suze Thibodeaux CCM Information not available 07/31/2023 21:46:13 Recreati onal Activiti es Participates in recreational activities [facility] 2023 Suze Thibodeaux CCM Information not available 07/31/2023 21:46:13 Effectiv e Coping Manages life events with effective coping methods [facility] 2023 Suze Thibodeaux CCM Information not available 07/31/2023 21:46:13 Medicati on Regimen Follows medication regimen as per care team recommendation (s) [facility] active 2023 Suze Thibodeaux CCM Information not available 07/31/2023 21:46:13 Vaccinat ion Status Remains up to date on vaccines as per care team recommendation (s) NoChange active 2023 Suze Thibodeaux CCM Information not available 07/31/2023 21:46:13 Health Concerns Section Related Observation LastModified by Organization Bernice islas LastModified Time None Recorded Concern Status LastModified by Organization Details LastModified Time Chronic obstructive lung disease Active Suze Thibodeaux CCM Not Available 07/31/2023 21:4 4:45 Essential hypertension Active Suze Thibodeaux CCM Not Ilsa ilable 07/31/2023 21:44:54 Hyperlipidemia Active Suze Thibodeaux CCM Not Available 0 07/31/2023 21:45:03 Advance Directives Directive N: Patient is currently work ing on one. Payers Insurance Date Sequence Insurance Name Policy Number Policy Jesus Covered Member ID Jesus Member ID Guarantor Name 08/20/2024 1 [employer] - GOLD PLUS (MEDICARE REPLACEMENT/A DVANTAGE - HMO) Malu Mendiola [id number] Malu Mendiola Notes Date Note Type Note Provider Name and Address Organization Details Recorded Time 10/21/2023 text/html OV 05/06/2023:Here to establish care Past Hx:Hypothyroidis XinLDHTN Does well, here with his , no new labs noted OV 06/03/2023: Here for his ACVHas noted L wrist pain since past , states that he 'woke up' with the pain, no acute injury, does have a old injury to the L MF, he is able to make a fist, but hurts when the lateral wrist is pressed, no N/T or weakness in the hand OV 07/18/2023: Here for his ACVC/o insect bite on the L proximal forearm, swelling noted, very itchy, no fevers or chills OV 10/21/2023: Here for his f/u apt. He is here with his , since last visit, he has had a stent put in, needs to get an apt with Dr Lucio [facility] also Bert Madden MD [address], [address], [place], [address], [place] [facility] [place] 10/21/2023 18:16:53 01/27/2024 text/html OV 05/06/2023:Here to establish care Past Hx:Hypothyroidrogelio Her Does well, here with his , no new labs noted OV 06/03/2023: Here for his ACVHas noted L wrist pain since past , states that he 'woke up' with the pain, no acute injury, does have a old injury to the L MF, he is able to make a fist, but hurts when the lateral wrist is pressed, no N/T or weakness in the hand OV 07/18/2023: Here for his ACVC/o insect bite on the L proximal forearm, swelling noted, very itchy, no fevers or chills OV 10/21/2023: Here for his f/u apt. He is here with his , since last visit, he has had a stent put in, needs to get an apt with Dr Carrington RAI also OV 01/27/2024: Here for his f/u apt, he is here with his , now is to see Dr Elliot LAYNE for his R carotid stenosis, referred by [facility], he has no new labs , no new labs, he is fasting today and can do labs today Bert Madden MD [address] [facility], [facility] [address], [place], [address], [facility] [employer] 01/27/2024 19:19:25 02/11/2024 text/html OV 05/06/2023:Here to establish care Past Hx:Hypothyroidrogelio Her Does well, here with his , no new labs noted OV 06/03/2023: Here for his ACVHas noted L wrist pain since past , states that he 'woke up' with the pain, no acute injury, does have a old injury to the L MF, he is able to make a fist, but hurts when the lateral wrist is pressed, no N/T or weakness in the hand OV 07/18/2023: Here for his ACVC/o insect bite on the L proximal forearm, swelling noted, very itchy, no fevers or chills OV 10/21/2023: Here for his f/u apt. He is here with his , since last visit, he has had a stent put in, needs to get an apt with Dr Carrington RAI also OV 01/27/2024: Here for his f/u apt, he is here with his , now is to see Dr Elliot LAYNE for his R carotid stenosis, referred by [facility], he has no new labs , no new labs, he is fasting today and can do labs today 02/11/2024: Here for his f/u apt, he is doing well, he did do the labs, he is here with his , he is now to see Dr Zarate for his carotid stenosis Bert Madden MD [address] [facility], [address], [place], [address], [place] [facility] 02/12/2024 14:06:45 05/21/2024 text/html OV 05/06/2023:Here to establish care Past Hx:Hypothyroidis Taina Does well, here with his , no new labs noted OV 06/03/2023: Here for his ACVHas noted L wrist pain since past , states that he 'woke up' with the pain, no acute injury, does have a old injury to the L MF, he is able to make a fist, but hurts when the lateral wrist is pressed, no N/T or weakness in the hand OV 07/18/2023: Here for his ACVC/o insect bite on the L proximal forearm, swelling noted, very itchy, no fevers or chills OV 10/21/2023: Here for his f/u apt. He is here with his , since last visit, he has had a stent put in, needs to get an apt with Dr Carrington RAI also OV 01/27/2024: Here for his f/u apt, he is here with his , now is to see Dr Elliot LAYNE for his R carotid stenosis, referred by [facility], he has no new labs , no new labs, he is fasting today and can do labs today 02/11/2024: Here for his f/u apt, he is doing well, he did do the labs, he is here with his , he is now to see Dr Zarate for his carotid stenosis OV 05/21/2024: Here for his f/u apt, here with his , is doing well today Bert Madden MD [address], [address], [place], [address], [facility] [employer] [facility] [employer] 05/21/2024 12:54:23 08/20/2024 text/html OV 05/06/2023:Here to establish care Past Hx:Hypothyroidis Taina Does well, here with his , no new labs noted OV 06/03/2023: Here for his ACVHas noted L wrist pain since past , states that he 'woke up' with the pain, no acute injury, does have a old injury to the L MF, he is able to make a fist, but hurts when the lateral wrist is pressed, no N/T or weakness in the hand OV 07/18/2023: Here for his ACVC/o insect bite on the L proximal forearm, swelling noted, very itchy, no fevers or chills OV 10/21/2023: Here for his f/u apt. He is here with his , since last visit, he has had a stent put in, needs to get an apt with Dr Carrington RAI also OV 01/27/2024: Here for his f/u apt, he is here with his , now is to see Dr Elliot LAYNE for his R carotid stenosis, referred by [facility], he has no new labs , no new labs, he is fasting today and can do labs today 02/11/2024: Here for his f/u apt, he is doing well, he did do the labs, he is here with his , he is now to see Dr Zarate for his carotid stenosis OV 05/21/2024: Here for his f/u apt, here with his , is doing well today OV 08/20/2024: Here for his f/u apt, does well, did see Dr Carrington RAI and he is yet to do the labs, he is here with his Bert Madden MD [address], [address], [place], [address], [facility] [employer] [facility] [employer] 08/20/2024 15:32:10
--- OUTSIDE RECORDS SUMMARY | 2024-09-16 07:00 | XMS_ITS | Continuity of Care Document ---
Author Organization [facility] Address [address] [place] [address] Phone Care Team Providers Care Traffic Controller Cable Name Role Phone Rm OD, Esteban Unavailable Unavailable Advance Directives Directive Yes / No Effective Date File Name No Information Encounters Encounter Description Practice Location Reason(s) For Visit Diagnoses Date Provider Providers Copied on Encounter [facility], [address], [place], [place], [id number], [place] tel:[phone] [facility] No Information 4-200 5 Rm OD Esteban. [address] , [address], [place], [address], [place]. tel:[phone] Family History Family Member Type Diagnosis Age At Onset No Information Payers Payer name Insurance type Covered republican ID Authoriza tion(s) [place] [facility] [id number] Social History Type Description Quantity Date Captured [...]
--- OUTSIDE RECORDS SUMMARY | 2024-09-16 07:00 | XMS_ITS | Clinical Summary ---
Author Organization [facility] Address [address] [place] [address] Phone Care Team Providers Care Manager Freelance Name Role Phone Rey Heck MD Primary Care Provider [phone] Social History Tobacco Use Types Packs/Day Years Used Date Smoking Tobacco: Never Assessed Sex and Gender Information Value Date Recorded Sex Assigned at Not on file Legal Sex Male 12:19 AM CDT Gender Identity Not on file Sexual Orientation Not on file Plan of Treatment Health Maintenance Due Date Last Done Comments Hepatitis C Virus (HCV) Screening 1950 TdaP Immunization 1950 Colonoscopy 1994 Colorectal Cancer Screening 1994 Cologuard 10/28/1999 Immunochemical Fecal Occult Blood 10/28/1999 Pneumococcal Immunization (5 0+ years) (1 of 1 - PCV) 10/28/1999 Zoster Immunization (1 of 2) 10/28/1999 Influenza Immunization (#1) 2023 12/09/2016 SARS-COV-2 Immunization ( season) 2023 03/02/2021, 08/25/2020 Respiratory Syncytial Virus (RSV) Immunization (Adult) (1 - 1-dose 75+ series) 2024 Hepatitis B Immunization Aged Out No longer eligible based on patient's age to complete this topic Meningococcal Immunization (ACWY) Aged Out No longer eligible b ased on patient's age to complete this topic Rotavirus Immunization Aged Out No lo nger eligible based on patient's age to complete this topic Insurance MEDICARE C HUMANA Care Teams Manager Freelance Relationship Specialty Start Date End Date Rey Heck MD PCP - General Internal Medicine 03/18/18
--- OUTSIDE RECORDS SUMMARY | 2024-09-16 07:00 | XMS_ITS | Encounter Summary ---
Author Organization [facility] Address [address] [place] [address] Care Team Providers Care Social Secretary Name Role Phone Unavailable Primary Care Provider Unavailabl e Encounter Details Date Type Department Care Team (Late st Contact Info) Description 06/17/2024 Lab Requisition [facility]ermPath Lab [address] [place] [phone] Randy Bravo MD [facility] DERMATOLOGY [address] [place] [phone] Neoplasm of uncertain behavior of skin Social History Tobacco Use Types Packs/Day Years Used Date Smoking Tobacco: Never Assessed Sex and Gender Information Value Date Recorded Sex Assigned at Not on file 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 Gender Identity Not on file Sexual Orientation Not on file documented as of this encounter Plan of Treatment Not on file documented as of this encounter Procedures Procedure Name Priority Date/Time Associated Diagnosis Comments DERMATOPATHOLOGY Routine 06/17/2024 3:33 AM CDT Neoplasm of uncertain behavior of skin documented in this encounter Results * DERMATOPATHOLOGY (06/17/2024 3:33 AM CDT) Case Report Dermatopathology Report Case: [id number] Authorizing Provider: Randy Bravo MD Collected: 06/17/2024 03:33 AM Ordering Location: [facility] - Received: 06/18/2024 12:37 PM DermPath Lab Pathologist: Amie Thibodeaux MD Specimen: Skin, right distal posterior upper arm 1:05 PM CDT DERMATOPATHOLOGY LABORATORY Final Diagnosis Specimen A. SKIN, right distal posterior upper arm: SQUAMOUS CELL CARCINOMA IN SITU, PRESENT AT THE BASE OF THE SPECIMEN (D04.61) (see microscopic description and comment) 1:05 PM CDT DERMATOPATHOLOGY LABORATORY at 1305 CDT Clinical History SCC 1:05 PM CDT DERMATOPATHOLOGY LABORATORY Gross Description Specimen A: Received is one formalin filled container labeled with the patient's name and designated right distal posterior upper arm. The specimen consists of a shave biopsy measuring 5x4x1 mm. Jar 0. 1:05 PM CDT DERMATOPATHOLOGY LABORATORY Microscopic Description Specimen A. SKIN, right distal posterior upper arm: The epidermis shows parakeratosis, full thickness disorderly maturation of keratinocytes, mitoses at different levels, and dyskeratotic cells. The lesion extends to the base of the biopsy. COMMENT: An invasive squamous cell carcinoma cannot be ruled out. 1:05 PM CDT DERMATOPATHOLOGY LABORATORY Disclaimer An external and internal positive and negative controls are appropriate for the histochemical, immunohistochemical and immunofluorescence stain(s) in this case (if any), except where stated explicitly. The performance characteristics of the stain(s) cited in this report were developed and its performance characteristic determined by the Dermatopathology Laboratory at [facility], directed by Dr. Hoa Zayas. These tests need not be, and therefore are not, approved by the [place] Food and Drug Administration. The tests are used for clinical purposes. Billing Codes Specimen Charges Stain Charges 40265 1 1:05 PM CDT DERMATOPATHOLOGY LABORATORY Embedded Images 1:05 PM CDT DERMATOPATHOLOGY LABORATORY Pathology/Cytolo gy TISSUE SPECIMEN FROM SKIN / Unknown 06/17/2024 3:33 AM CDT 06/18/2024 12:37 PM CDT Randy Bravo MD LAB - PATHOLOGY/CYTOLOGY ORDE FRANCIE Final Result DERMATOPATHOLOGY LABORATORY [facility] - Department of Dermatology [address], [address] [phone] documented in this encounter Visit Diagnoses Diagnosis Neoplasm of uncertain behavior of skin documented in this encounter
--- OUTSIDE RECORDS SUMMARY | 2024-09-16 07:00 | XMS_ITS | Patient Health Record ---
Author Organization [facility] Address [address] [place] [address] Care Team Providers Care Bellhop Service Captain Name Role Phone Robert Shultz Unavailable [phone] Reason For Referral No Information Medications Medication SIG (Take, Route, Frequency, Duration) Notes Start Date End Date Status Calcitriol 0.25 MCG 1 capsule Orally Onc e a day; Duration: 90 day(s) 07/22/2024 04/17/2025 Active Ergocalciferol 1.25 MG (38434 UT) 1 capsule Orally Once a week; Duration: 30 days 07/22/2024 11/19/2024 Active Losartan Potassium 25 MG 1 tablet Orally Once a day; Duration: 90 day(s) 07/22/2024 Active Problems Problem Type SNOMED Code ICD Code Onset Dates Problem Status W/U Status Risk Notes Problem Diabetic renal disease (300224734) Type 2 diabetes mellitus with diabetic chronic kidney disease (E11.22) Active confirmed Problem Hyperlipidemia (93720969) Hyperlipidemia, unspecified (E78.5) Active confirmed Problem Cardiomyopathy (98601151) Cardiomyopathy, unspecified (I42.9) Active confirmed Problem Gastro-esophageal reflux disease without esophagitis (488876478) Gastro-esophageal reflux disease without esophagitis (K21.9) Active confirmed Problem Chronic kidney disease stage 4 (133723989) Chronic kidney disease, stage 4 (severe) (N18.4) Active confirmed Problem Renal osteodystrophy (87149270) Renal osteodystrophy (N25.0) Active confirmed Problem Secondary hyperparathyroidism of renal origin (15738399) Secondary hyperparathyroidism of renal origin (N25.81) Active confirmed Problem Proteinuria (40381605) Proteinuria, unspecified (R80.9) Active confirmed Problem Essential hypertension (60656045) Essential hypertension (I10) Active confirmed Problem Coronary artery disease (90811211) CAD (coronary artery disease) (I25.10) Active confirmed Encounters Encounter Location Date Provider Diagnosis [facility] [address] [address] 06/24/2024 Robert Shultz Chronic kidney disea se, stage 3 unspecified N18.30 ; Essential hypertension I10 ; Gastro-esophageal reflux disease without esophagitis K21.9 ; Hyperlipidemia, unspecified E78.5 ; CAD (coronary artery disease) I25.10 and Cardiomyopathy, unspecified I42.9 [facility] [address] [place] [address] 07/22/2024 Robert Shultz Chronic kidney disea se, stage 3a N18.31 ; Essential hypertension I10 ; Gastro-esophageal reflux disease without esophagitis K21.9 ; Hyperlipidemia, unspecified E78.5 ; CAD (coronary artery disease) I25.10 ; Cardiomyopathy, unspecified I42.9 ; Type 2 diabetes mellitus with diabetic chronic kidney disease E11.22 ; Renal osteodystrophy N25.0 ; Secondary hyperparathyroidism of renal origin N25.81 and Proteinuria, unspecified R80.9 [facility] [address] [place] [address] 09/02/2024 Robert Shultz Chronic kidney disea se, stage 4 (severe) N18.4 ; Essential hypertension I10 ; Gastro-esophageal reflux disease without esophagitis K21.9 ; Hyperlipidemia, unspecified E78.5 ; CAD (coronary artery disease) I25.10 ; Cardiomyopathy, unspecified I42.9 ; Type 2 diabetes mellitus with diabetic chronic kidney disease E11.22 ; Renal osteodystrophy N25.0 ; Secondary hyperparathyroidism of renal origin N25.81 and Proteinuria, unspecified R80.9 [facility] [address] [place] [address] 07/22/2024 Robert Shultz Assessments Encounter Date Diagnosis (ICD Code) Assessment Notes Treatment Notes Treatment Clinical Notes Section Notes 06/24/2024 Chronic kidney disea se, stage 3 unspecified (ICD-10 - N18.30) 07/22/2024 Chronic kidney disea se, stage 3a (ICD-10 - N18.31) 09/02/2024 Chronic kidney disea se, stage 4 (severe) (ICD-10 - N18.4) 07/22/2024 Essential hypertensi on (ICD-10 - I10) 09/02/2024 Essential hypertensi on (ICD-10 - I10) 06/24/2024 Essential hypertensi on (ICD-10 - I10) 06/24/2024 Gastro-esophageal reflux disease without esophagitis (ICD-10 - K21.9) 07/22/2024 Gastro-esophageal reflux disease without esophagitis (ICD-10 - K21.9) 09/02/2024 Gastro-esophageal reflux disease without esophagitis (ICD-10 - K21.9) 09/02/2024 Hyperlipidemia, unspecified (ICD-10 - E78.5) 06/24/2024 Hyperlipidemia, unspecified (ICD-10 - E78.5) 07/22/2024 Hyperlipidemia, unspecified (ICD-10 - E78.5) 06/24/2024 CAD (coronary artery disease) (ICD-10 - I25.10) 07/22/2024 CAD (coronary artery disease) (ICD-10 - I25.10) 09/02/2024 CAD (coronary artery disease) (ICD-10 - I25.10) 09/02/2024 Cardiomyopathy, unspecified (ICD-10 - I42.9) 07/22/2024 Cardiomyopathy, unspecified (ICD-10 - I42.9) 06/24/2024 Cardiomyopathy, unspecified (ICD-10 - I42.9) 07/22/2024 Type 2 diabetes mellitus with diabetic chronic kidney disease (ICD-10 - E11.22) 09/02/2024 Type 2 diabetes mellitus with diabetic chronic kidney disease (ICD-10 - E11.22) 07/22/2024 Renal osteodystrophy (ICD-10 - N25.0) 09/02/2024 Renal osteodystrophy (ICD-10 - N25.0) 09/02/2024 Secondary hyperparathyroidism of renal origin (ICD-10 - N25.81) 07/22/2024 Secondary hyperparathyroidism of renal origin (ICD-10 - N25.81) 07/22/2024 Proteinuria, unspecified (ICD-10 - R80.9) 09/02/2024 Proteinuria, unspecified (ICD-10 - R80.9) Plan Of Treatment No Information
--- OUTSIDE RECORDS SUMMARY | 2024-09-16 07:00 | XMS_ITS | Encounter Summary ---
Author Organization [facility] Address [address] [place] [address] Care Team Providers Care Physics Department Chair Name Role Phone Unavailable Primary Care Provider Unavailabl e Encounter Details Date Type Department Care Team (Late st Contact Info) Description 04/30/2023 Lab Requisition [facility] - [facility]erm[facility] Lab [address] [place] [phone] Randy Bravo MD [facility] DERMATOLOGY [address] [place] [phone] Neoplasm of uncertain behavior of skin Social History Tobacco Use Types Packs/Day Years Used Date Smoking Tobacco: Never Assessed Sex and Gender Information Value Date Recorded Sex Assigned at Not on file 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 Gender Identity Not on file Sexual Orientation Not on file documented as of this encounter Plan of Treatment Not on file documented as of this encounter Procedures Procedure Name Priority Date/Time Associated Diagnosis Comments DERMATOPATHOLOGY Routine 04/30/2023 3:33 AM SUPPLY CHAIN GENERALIST Neoplasm of uncertain behavior of skin documented in this encounter Results * DERMATOPATHOLOGY (04/30/2023 3:33 AM SUPPLY CHAIN GENERALIST) Case Report Dermatopathology Report Case: [id number] Authorizing Provider: Randy Bravo MD Collected: 04/30/2023 03:33 AM Ordering Location: [facility] DermPath Lab Received: 05/01/2023 01:16 PM Pathologist: Latrice Thibodeaux MD Specimens: A) - Skin, left hand B) - Skin, left ear 2:31 PM SUPPLY CHAIN GENERALIST DERMATOPATHOLOGY LABORATORY Final Diagnosis Specimen A. SKIN, left hand: SUPERFICIAL (FOCALLY INVASIVE) SQUAMOUS CELL CARCINOMA ARISING IN AN ACTINIC KERATOSIS (C44.629) Specimen B. SKIN, left ear: BASAL CELL CARCINOMA, FRAGMENTS OF (C44.219) (see microscopic description) 2:31 PM [facility] DERMATOPATHOLOGY LABORATORY at [address]31 SUPPLY CHAIN GENERALIST Clinical History A: Squamous Cell Carcinoma B: Basal Cell Carcinoma 2:31 PM [facility] DERMATOPATHOLOGY LABORATORY Gross Description Specimen A: Received is one formalin filled container labeled with the patient's name and designated left hand. The specimen consists of a shave biopsy measuring 5x5x1 mm. Jar 0. Specimen B: Received is one formalin filled container labeled with the patient's name and designated left ear. The specimen consists of a shave biopsy measuring 2x1x1 mm. Jar 0. 2:31 PM [facility] DERMATOPATHOLOGY LABORATORY Microscopic Description Specimen A. SKIN, left hand: Sections reveal parakeratosis, acanthosis and keratinocyte dysmaturation which is most prominent in the lower epidermis. Focal nests are present in the dermis. Specimen B. SKIN, left ear: The specimen consists of fragments of tissue with small aggregates of basaloid cells that show peripheral palisading of their nuclei. BerEP4 is positive within the malignant cells. Additional deeper sections were obtained and reviewed. 2:31 PM [facility] DERMATOPATHOLOGY LABORATORY Disclaimer An external and internal positive and negative controls are appropriate for the histochemical, immunohistochemical and immunofluorescence stain(s) in this case (if any), except where stated explicitly. The performance characteristics of the stain(s) cited in this report were developed and its performance characteristic determined by the Dermatopathology Laboratory at [facility], directed by Dr. Hoa Zyaas. These tests need not be, and therefore are not, approved by the [place] Food and Drug Administration. The tests are used for clinical purposes. Billing Codes Specimen Charges Stain Charges 70947 39237 1 1 74493 1 2:31 PM [facility] DERMATOPATHOLOGY LABORATORY Embedded Images 2:31 PM [facility] DERMATOPATHOLOGY LABORATORY Pathology/Cytology TISSUE SPECIMEN FROM SKIN / Unknown 04/30/2023 3:33 AM SUPPLY CHAIN GENERALIST 05/01/2023 1:16 PM SUPPLY CHAIN GENERALIST Miscellaneous samples (specimen) TISSUE SPECIMEN FROM SKIN / Unknown 04/30/2023 3:33 AM SUPPLY CHAIN GENERALIST 05/01/2023 1:29 PM SUPPLY CHAIN GENERALIST us Randy Bravo MD LAB - PATHOLOGY/CYTOLOGY GIBRAN MARMOLEJO Final Result DERMATOPATHOLOGY LABORATORY [facility] - Department of Dermatology [facility] Medicine [address] [place] [address], [address] [phone] documented in this encounter Visit Diagnoses Diagnosis Neoplasm of uncertain behavior of skin documented in this encounter
--- OUTSIDE RECORDS SUMMARY | 2024-09-16 07:00 | XMS_ITS ---
Author Organization [facility] Address [address] [address] [place] [address] Care Team Providers Care Press Assistant Name Role Phone Robert Shultz Unavailable [phone] Problems Problem Type SNOMED Code ICD Code Onset Dates Problem Status W/U Status Risk Notes Problem Type 2 diabetes mellitus with diabetic chronic kidney disease (E11.22) Active confirmed Problem Renal osteodystrophy (81352069) Renal osteodystrophy (N25.0) Active confirmed Problem Secondary hyperparathyroidism of renal origin (52636533) Secondary hyperparathyroidism of renal origin (N25.81) Active confirmed Problem Proteinuria (10928252) Proteinuria, unspecified (R80.9) Active confirmed Encounters Encounter Location Date Provider Diagnosis [place] [facility] [address] [facility] [address] [place] [address] 07/22/2024 Robert Shultz Chronic kidney disea se, [...] * MALU MENDIOLADOB: 0 (73 yo M)Acc No.[id number]:07/22/2024 Progress Notes Patient: MALU JIMENES Provider: Regis SIDDIQUI MD, F.A.C.P, F.A.S.N. :1950 A ge:73 Y S ex:Male Date:07/22/2024 Address:[address] [place] [address] Subjective: * Chief Complaints: * * Medical [...] Treatment: * Billing Information: * Visit Code: 18299 Office Visit, Est Pt., Level 4. * Procedure Codes: * Electronic signature of Gaudencio Shultz MD on 09/16/2024 at 07:00 AM CDT Sign off status: Pending * Provider: Regis SIDDIQUI MD, F.A.C.P, F.A.S.N. Date: 07/22/2024 Generated for Printing/Faxing/eTransmitting on: 0 09/16/2024 07:00 AM CDT
--- OUTSIDE RECORDS SUMMARY | 2024-09-16 07:00 | XMS_ITS ---
Author Organization [facility] Address [address] [address] [place] [address] Care Team Providers Care Motorcycle Subassembly Repairer Name Role Phone Carrington Robert Unavailable [phone] Problems Problem Type SNOMED Code ICD Code Onset Dates Problem Status W/U Status Risk Notes Problem Chronic kidney disease, stage 4 (severe) (N18.4) Active confirmed Encounters Encounter Location Date Provider Diagnosis [place] [facility] [address] [facility] [address] [place] [address] 09/02/2024 Robert Shultz Chronic kidney disea se, [...] * MALU MENDIOLADOB: 0 (73 yo M)Acc No.[id number]:09/02/2024 Patient: MALU JIMENES Provider: Regis SIDDIQUI MD, F.Carlos.C.P, F.A.S.N. :1950 A ge:73 Y S ex:Male Date:09/02/2024 Address:[address] [place] [address] Subjective: * Chief Complaints: Objective: Assessment: * [...] Plan: * Billing Information: * Visit Code: 09433 Office Visit, Est Pt., Level 5. * Procedure Codes: * Electronic signature of Gaudencio Shultz MD on 09/16/2024 at 06:59 AM CDT Sign off status: Pending * Provider: Regis SIDDIQUI MD, F.Carlos.C.P, F.A.S.N. Date: 0 09/02/2024 Generated for Printing/Faxing/eTransmitting on: 0 09/16/2024 06:59 AM CDT
--- OUTSIDE RECORDS SUMMARY | 2024-09-16 07:00 | XMS_ITS | Clinical Summary ---
Author Organization [facility] Address [address] [place] [address] Care Team Providers Care Civil Engineering Specialist Name Role Phone Unavailable Primary Care Provider Unavailabl e Source Comments [facility],non-owned Affiliates and Associated Physician Practices is amultiple site organization consisting of ambulatory clinics and hospital sitesin [place], [place], [place] and [place]. This disclosure is being madepursuant to the Care Everywhere program and may not contain all information available regarding this patient. 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 Gender Identity Not on file Sexual Orientation Not on file Plan of Treatment Health Maintenance Due Date Last Done Comments COLOGUARD (AGES 45-75) - COL ON CA SCREENING 1949 COLON MONITORING 1949 COLONOSCOPY - COLON CA SCREENING 1949 CT COLONOGRAPHY - COLON CA SCREENING 1949 Colorectal Cancer Screening 1949 FIT - COLON CA SCREENING 1949 FLEX SIG - COLON CA SCREENING 1949 LIPID TESTING 1949 HEPATITIS C SCREENING 10/23/1967 DTAP/TDAP/TD VACCINES (1 - Tdap) 1968 PNEUMOCOCCAL VACCINE 50+ (1 of 1 - PCV) 10/28/1999 ZOSTER VACCINE (1 of 2) 10/28/1999 COVID-19 VACCINE (1 - 2023-2 5 season) 2023 DEPRESSION SCREENING 03/11/2024 MEDICARE AWV CALENDAR YEAR 2024 Respiratory Syncytial Virus (RSV) Vaccine Pt: or over 60 yrs (1 - 1-dose 75+ series) 2024 INFLUENZA VACCINE (#1) 2024 HEPATITIS B VACCINE Aged Out No longe r eligible based on patient's age to complete this topic HIB VACCINE Aged Out No longer eligi ble based on patient's age to complete this topic HPV VACCINE Aged Out No longer eligi ble based on patient's age to complete this topic MENINGOCOCCAL (Group B) VACC INE SHARED DECISION-MAKING Aged Out No longer eligibl e based on patient's age to complete this topic MENINGOCOCCAL GROUPS A/C/Y/W VACCINE Aged Out No longer eligible b ased on patient's age to complete this topic Procedures Procedure Name Priority Date/Time Associated Diagnosis Comments DERMATOPATHOLOGY Routine 06/17/2024 3:33 AM CDT Neoplasm of uncertain behavior of skin from Last 3 Months Results * DERMATOPATHOLOGY (06/17/2024 3:33 AM CDT) Case Report Dermatopathology Report Case: [id number] Authorizing Provider: Randy Bravo MD Collected: 06/17/2024 03:33 AM Ordering Location: [facility] - Received: 06/18/2024 12:37 PM [...] characteristic determined by the Dermatopathology Laboratory at [facility], directed by Dr. Hoa Zayas. These tests need not be, and therefore are not, approved by the [place] Food and Drug Administration. The tests are used for clinical purposes. Billing Codes Specimen Charges Stain Charges 86136 1 1:05 PM CDT DERMATOPATHOLOGY LABORATORY Embedded Images 1:05 PM CDT DERMATOPATHOLOGY LABORATORY Pathology/Cytolo gy TISSUE SPECIMEN FROM SKIN / Unknown 06/17/2024 3:33 AM CDT 06/18/2024 12:37 PM CDT Randy Bravo MD LAB - PATHOLOGY/CYTOLOGY ORDE FRANCIE Final Result DERMATOPATHOLOGY LABORATORY [facility] Department of Dermatology [address], [address] [phone] from Last 3 Months Insurance HUMANA MEDICARE ADV HMO & PPO
--- NOTE | 2024-09-16 07:13 | ECG_ITS ---
Test Date: 2024-09-16 07:19:14 Measurements Intervals [place] Rate: 74 P: 45 MA: 220 QRS: 49 QRSD: 108 T: 74 QT: 429 QTc: 478 Interpretive Statements SINUS RHYTHM WITH FIRST DEGREE AV BLOCK MODERATE ST DEPRESSION [0.05+ mV ST DEPRESSION] ABNORMAL ECG Compared to ECG 08/30/2024 11:22:24 First degree AV block now present Electronically Signed On 09-16-2024 07:55:37 CDT by Rey Wheat M.D.
[2024-09-16] MEDS: SODIUM CHLORIDE 0.9% IV 1,000 ML 999 ML IV CONT (07:30)
[2024-09-16 07:32] LABS: Hematocrit 29.3 % (42.0-52.0); Hemoglobin 9.8 g/dL (14.0-18.0); Immature Granulocyte Percent A 0.7 % (0-0.5); Lymphocytes Absolute Auto 0.84 K/mm3 (0.9-3.2); Mean Corpuscular HGB Conc 33.4 g/dl (32-36); Mean Corpuscular Hemoglobin 31.1 pg (26-34); Mean Corpuscular Volume 93.0 fl (80-100); Nucleated Red Blood Cells Absolute Auto 0.000 K/mm3 (0.0-0.012); Nucleated Red Blood Cells Perc 0.0 % (0.0-0.2); Platelet Count Result 237 k/mm3 (150-375); Red Blood Count 3.15 M/mm3 (4.6-6.20); White Blood Count 13.6 K/mm3 (4.5-10.0)
--- OUTSIDE RECORDS SUMMARY | 2024-09-16 07:38 | XMS_ITS | Referral Summary ---
Author Organization [facility] Address [facility] [place] [address] Care Team Providers Care Justice Court Deputy Clerk Name Role Phone Rey Heck MD Primary Care Provider + [phone] Randy Bravo MD Unavailable [phone] Bran العراقي DO Unavailable [phone] Dave Parker MD Unavailable Allergies Active Allergy [...] Administration Dates Next Due Influenza, Unspecified 12/09/2016 Per Vices (J&J) SARS-CoV-2 Vaccination 08/25/2020 Social History Tobacco [...] on file Legal Sex Male 7:30 PM GARLAND MAKER Gender Identity Not on file Sexual Orientation Not on file 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 Not on file Not on file Last Filed Vital Signs Vital Sign Reading Time Taken Comments Blood Pressure 101/57 04/11/2024 8:59 AM GARLAND MAKER Pulse 65 04/11/2024 8:59 AM GARLAND MAKER Temperature 37.1 C (98.8 F) 04/11/2024 8:59 AM GARLAND MAKER Respiratory Rate 17 04/11/2024 8:59 AM GARLAND MAKER Oxygen Saturation 96% 04/11/2024 8:59 AM GARLAND MAKER Inhaled Oxygen Concentration - - Weight 80.3 kg (177 lb) 04/10/2024 3:30 PM GARLAND MAKER Height 177.8 cm (5' 10) 04/10/2024 3:30 PM GARLAND MAKER Body Mass Index 25.4 04/10/2024 3:30 PM GARLAND MAKER Plan of Treatment Not on file Medical Devices Implanted Type Area Marine Radio Installer And Servicer Device Identifier Shelf Expiration Date Model / Serial / Lot Medtronic Card Vasc Surgery 4.0 X 30mm [employer] [place] Rx Coronary Stent [id number] - [id number] Implanted:Qty: 1 on 07/25/2023 by Dave Parker MD at [facility] Medtronic Card Vasc Surgery 03/30/2026 [id number] / / [id number] Glide [employer] Sulma Stent Drug Eluting S Megatron Us Mr 5.00x8mm [id number] - [id number] Implanted:Qty: 1 on 07/25/2023 by Dave Parker MD at [facility] [employer] Sulma 10/30/2024 [id number] / / [id number] TerSpace Race Angio-Seal Vip 6fr Closere Device [id number] - [id number] Implanted:Qty: 1 on 07/25/2023 by Dave Parker MD at [facility] [employer] Sulma [id number] / / Piedra Vascular Xact 8-10mm 40mm Self Expand Closed Cell Flare End Freestyle 01611-54 - [id number] Implanted:Qty: 1 on 04/10/2024 by Varun Zarate MD at [facility] [employer] V[employer] 09/07/2025 [id number] / / [id number] KitOrder Angio-Seal Vip 6fr Closere Device [id number] - [id number] Implanted:Qty: 1 on 04/10/2024 by Varun Zarate MD at [facility] KitOrder 09/17/2024 [id number] / / Procedures Procedure Name Priority Date/Time Associated Diagnosis Comments HEPATITIS C ANTIBODY Routine 03/31/2018 3:12 PM GARLAND MAKER Porphyria cutanea tarda (HCC) from Last 3 Months or Most Recently Relevant to Health Maintenance Results * Hepatitis C antibody (03/31/2018 3:12 PM GARLAND MAKER) Hep C Ab <0.1 0.0 - 0.9 s/co ratio [facility] - Comment: Negative: < 0.8 Indeterminate: 0.8 - 0.9 Positive: > 0.9 The CDC recommends that a positive HCV antibody result be followed up with a HCV Nucleic Acid Amplification test (424577). Blood specimen (specimen) 03/31/2018 3:12 PM GARLAND MAKER 03/31/2018 Narrative [facility] - 04/01/2018 8:31 AM GARLAND MAKER Performed at: [facility] [id number] [employer] Drm Consultant: Mihir Paul PhD, Phone: [phone] Bran العراقي DO LAB MICROBIOLOGY - GENERAL O RDERABLES Final Result Performing Organization Address City/State/[facility] Co de Phone Number [facility] - 01 from Last 3 Months or Most Recently Relevant to Health Maintenance Insurance HUMANA CHOICE MEDICARE PPO HUMANA MEDICARE HMO Advance Directives For more information, please contact: [phone] * Full Code (Latest Code Status on File) Date Activated Date Inactivated Comments 04/10/2024 11:03 AM 04/11/2024 7:10 PM * Full Code Date Activated Date Inactivated Comments 07/25/2023 10:42 AM 07/26/2023 6:[address] Deputy Clerk Relationship Specialty Start Date End Date Rey Heck MD PCP - General Internal Medicine 01/16/18 Randy Bravo MD Dermatology 01/20/18 Bran العراقي DO [address] [place] [address] Medical Oncologist/Hematologis t Hematology and Oncology 06/11/18 Dave Parker MD [address] [place] [address] Consulting Physician Cardiovascular Disease 07/26/23
--- OUTSIDE RECORDS SUMMARY | 2024-09-16 07:38 | XMS_ITS | Clinical Summary ---
Author Organization [facility] Address [facility] [place] [address] Care Team Providers Care Director Health Name Role Phone Rey Heck MD Primary Care Provider [phone] Randy Bravo MD Unavailable [phone] Bran العراقي DO Unavailable [phone] Dave Parker MD Unavailable Allergies Active Allergy [...] Administration Dates Next Due Influenza, Unspecified 12/09/2016 Alfred (J&J) SARS-CoV-2 Vaccination 08/25/2020 Surgical History Surgery [...] on file Legal Sex Male 7:30 PM GREENHOUSE OR NURSERY TRANSPLANTER Gender Identity Not on file Sexual Orientation Not on file 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 Not on file 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 Not on file Not on file Obstetrics History Last Filed Vital Signs Vital Sign Reading Time Taken Comments Blood Pressure 101/57 04/11/2024 8:59 AM GREENHOUSE OR NURSERY TRANSPLANTER Pulse 65 04/11/2024 8:59 AM GREENHOUSE OR NURSERY TRANSPLANTER Temperature 37.1 C (98.8 F) 04/11/2024 8:59 AM GREENHOUSE OR NURSERY TRANSPLANTER Respiratory Rate 17 04/11/2024 8:59 AM GREENHOUSE OR NURSERY TRANSPLANTER Oxygen Saturation 96% 04/11/2024 8:59 AM GREENHOUSE OR NURSERY TRANSPLANTER Inhaled Oxygen Concentration - - Weight 80.3 kg (177 lb) 04/10/2024 3:30 PM GREENHOUSE OR NURSERY TRANSPLANTER Height 177.8 cm (5' 10) 04/10/2024 3:30 PM GREENHOUSE OR NURSERY TRANSPLANTER Body Mass Index 25.4 04/10/2024 3:30 PM GREENHOUSE OR NURSERY TRANSPLANTER Plan of Treatment Health Maintenance Due Date [...] 01/27/2024, 12/09/2016 Medical Devices Implanted Type Area Padded Box Sewer Device Identifier Shelf Expiration Date Model / Serial / Lot Medtronic Card Vasc Surgery 4.0 X 30mm [place] Rx Coronary Stent [id number] - [id number] Implanted:Qty: 1 on 07/25/2023 by Dave Parker MD at [facility] Vasc Surgery 03/30/2026 [id number] / / [id number] Interior Scientific Sulma Stent Drug Eluting S Megatron Us Mr 5.00x8mm [id number] - [id number] Implanted:Qty: 1 on 07/25/2023 by Dave Parker MD at [facility] Rhapso Sulma 10/30/2024 [id number] / / [id number] TerMission [employer] Sulma Angio-Seal Vip 6fr Closere Device [id number] - [id number] Implanted:Qty: 1 on 07/25/2023 by Dave Parker MD at [facility] [id number] / / Piedra Vascular Xact 8-10mm 40mm Self Expand Closed Cell Flare End Freestyle 32138-36 - [id number] Implanted:Qty: 1 on 04/10/2024 by Varun Zarate MD at [facility] [employer] V[employer] 09/07/2025 [id number] / / [id number] TerCapigami Angio-Seal Vip 6fr Closere Device [id number] - [id number] Implanted:Qty: 1 on 04/10/2024 by Varun Zarate MD at [facility] 09/17/2024 [id number] / / Procedures Procedure Name Priority Date/Time Associated Diagnosis Comments HEPATITIS C ANTIBODY Routine 03/31/2018 3:12 PM GREENHOUSE OR NURSERY TRANSPLANTER Porphyria cutanea tarda (HCC) from Last 3 Months or Most Recently Relevant to Health Maintenance Results * Hepatitis C antibody (03/31/2018 3:12 PM GREENHOUSE OR NURSERY TRANSPLANTER) Hep C Ab <0.1 0.0 - 0.9 s/co ratio [facility] - 01 Comment: Negative: < 0.8 Indeterminate: 0.8 - 0.9 Positive: > 0.9 The CDC recommends that a positive HCV antibody result be followed up with a HCV Nucleic Acid Amplification test (393462). Blood specimen (specimen) 03/31/2018 3:12 PM GREENHOUSE OR NURSERY TRANSPLANTER 03/31/2018 Narrative [facility] - 04/01/2018 8:31 AM GREENHOUSE OR NURSERY TRANSPLANTER Performed at: - [facility] [address] [id number] Colored Leather Setter: Mihir Paul PhD, Phone: [phone] us Bran العراقي DO LAB MICROBIOLOGY - GENERAL O RDERABLES Final Result [facility] - 01 from Last 3 Months or Most Recently Relevant to Health Maintenance Insurance [employer] [facility] MEDICARE O HUMANA MEDICARE HMO Advance Directives For more information, please contact: [phone] * Full Code (Latest Code Status on File) Date Activated Date Inactivated Comments 04/10/2024 11:03 AM 04/11/2024 7:10 PM * Full Code Date Activated Date Inactivated Comments 07/25/2023 10:42 AM 07/26/2023 6:13 PM Care Teams Director Health Relationship Specialty Start Date End Date Rey Heck MD PCP - General Internal Medicine 01/16/18 Randy Bravo MD Dermatology 01/20/18 Bran العراقي DO [address] [place] [address] Medical Oncologist/Hematologis t Hematology and Oncology 06/11/18 Dave Parker MD [address] [place] [address] Consulting Physician Cardiovascular Disease 07/26/23
--- OUTSIDE RECORDS SUMMARY | 2024-09-16 07:38 | XMS_ITS | Clinical Summary ---
Author Organization [facility] Paula Montelongo Address [address] [place] [address] Care Team Providers Care President And Chief Executive Officer Name Role Phone Yasmin Madden MD Primary [...] Comments Blood Pressure 143/80 04/01/2024 1:17 PM MOBILE APPLICATION ARCHITECT Pulse 76 04/01/2024 1:15 PM MOBILE APPLICATION ARCHITECT Temperature 36.7 C (98.1 F) 04/01/2024 1:15 PM MOBILE APPLICATION ARCHITECT Respiratory Rate 15 04/01/2024 1:15 PM MOBILE APPLICATION ARCHITECT Oxygen Saturation 97% 04/01/2024 1:15 PM MOBILE APPLICATION ARCHITECT Inhaled Oxygen Concentration - - Weight 81.6 kg (179 lb 12.8 oz) 04/01/2024 1:15 PM MOBILE APPLICATION ARCHITECT Height 175.3 cm (5' 9) 06/27/2023 10:0 1 AM CDT Body Mass Index 26.55 06/27/2023 10:01 AM CDT Plan of Treatment Upcoming Encounters Date Type Department Care Team (Late st Contact Info) Description 09/29/2024 11:45 AM CDT Office Visit [facility] Oncology and Hematology - [place] [address] [facility] [address] [place] [address] Quintin Paniagua MD [address] [facility] [address] [place] [address] Health Maintenance Due Date Last [...] Aortic Aneurysm (AAA) Screening Completed 05/15/2023 Insurance [employer] [facility] MCR Care Teams President And Chief Executive Officer Relationship Specialty Start Date End Date Yasmin Madden MD PCP - General Internal Medicine 06/27/23
--- OUTSIDE RECORDS SUMMARY | 2024-09-16 07:39 | XMS_ITS | Continuity of Care Document ---
Author Organization [facility] Address [address] [address] [place] [address] Phone Care Team Providers Care Credit Historian Name Role Phone Rm OD, Esteban Unavailable Unavailable Advance Directives Directive Yes / No Effective Date File Name No Information Encounters Encounter Description Practice Location Reason(s) For Visit Diagnoses Date Provider Providers Copied on Encounter [facility], [address], [place], [place], [id number], [place] tel:[phone] No Information 4-200 5 Rm OD Esteban. [address] , [address], [place], [address], [place]. tel:[phone] Family History Family Member Type Diagnosis Age At Onset No Information Payers Payer name Insurance type Covered constitution party ID Authoriza tion(s) [place] [facility] [employer] [id number] Social History Type Description Quantity Date Captured [...]
--- OUTSIDE RECORDS SUMMARY | 2024-09-16 07:39 | XMS_ITS | Clinical Summary ---
Author Organization [facility] Address [address] [place] [address] Phone Care Team Providers Care Machine Bunch Maker Name Role Phone Rey Heck MD Primary Care Provider [phone] Social History Tobacco Use Types Packs/Day Years [...] topic Insurance MEDICARE C HUMANA Care Teams Machine Bunch Maker Relationship Specialty Start Date End Date Rey Heck MD PCP - General Internal Medicine 03/18/18
--- OUTSIDE RECORDS SUMMARY | 2024-09-16 07:39 | XMS_ITS | Clinical Summary ---
Author Organization [facility] Address [address] [facility] [place] [address] Care Team Providers Care Flush Tester Name Role Phone Unavailable Primary Care Provider Unavailabl e Source Comments [facility],non-owned Affiliates and Associated Physician Practices is amultiple site organization consisting of ambulatory clinics and hospital sitesin [place], [place], [place] and [place]. This disclosure is being madepursuant to the Care Everywhere program and may not contain all information available regarding this patient. Last updated 17.[facility] Encounters Date Type Department Care Team Description 06/17/2024 Lab Requisition [facility] - DermPath Lab [address] [facility] [place] [address] Randy Bravo MD Neoplasm of uncertain behavior of skin from Last 3 Months Social History Tobacco Use Types Packs/Day Years Used Date Smoking Tobacco: Never Assessed Sex and Gender Information Value Date Recorded Sex Assigned at Not on file Legal Sex Male 4:35 PM HEMATOLOGY SUPERVISOR Gender Identity Not on file Sexual Orientation [...] AM CDT) Case Report Dermatopathology Report Case: [id number] Authorizing Provider: Randy Bravo MD Collected: 06/17/2024 03:33 AM Ordering Location: [facility] - Received: 06/18/2024 12:37 [...] by the Dermatopathology Laboratory at [facility], directed by Dr. Hoa Zayas. These tests need not be, and therefore are not, approved by the [place] Food and Drug Administration. The tests are used for clinical purposes. Billing Codes Specimen Charges Stain Charges 31368 1 1:05 PM CDT DERMATOPATHOLOGY LABORATORY Embedded Images 1:05 PM CDT DERMATOPATHOLOGY LABORATORY Pathology/Cytolo gy TISSUE SPECIMEN FROM SKIN / Unknown 06/17/2024 3:33 AM CDT 06/18/2024 12:37 PM CDT Randy Bravo MD LAB - PATHOLOGY/CYTOLOGY ORDE FRANCIE Final Result DERMATOPATHOLOGY LABORATORY [facility] Department of Dermatology [address] [phone] from Last 3 Months Insurance HUMANA MEDICARE ADV HMO & PPO
--- OUTSIDE RECORDS SUMMARY | 2024-09-16 07:39 | XMS_ITS | Encounter Summary ---
Author Organization [facility] Address [address] [facility] [place] [address] Care Team Providers Care Hod Carrier Name Role Phone Unavailable Primary Care Provider Unavailabl e Encounter Details Date Type Department Care Team (Late st Contact Info) Description 04/30/2023 Lab Requisition [facility] - DermPath Lab [address] [place] [address] Randy Bravo MD [facility] DERMATOLOGY [address] [place] [phone] Neoplasm of uncertain behavior of skin Social History Tobacco Use Types Packs/Day Years Used Date Smoking Tobacco: Never Assessed Sex and Gender Information Value Date Recorded Sex Assigned at Not on file Legal Sex Male 4:35 PM DISHTANK OPERATOR Gender Identity Not on file Sexual Orientation Not on file documented as of this encounter Plan of Treatment Not on file documented as of this encounter Procedures Procedure Name Priority Date/Time Associated Diagnosis Comments DERMATOPATHOLOGY Routine 04/30/2023 3:33 AM DISHTANK OPERATOR Neoplasm of uncertain behavior of skin documented in this encounter Results * DERMATOPATHOLOGY (04/30/2023 3:33 AM DISHTANK OPERATOR) Case Report Dermatopathology Report Case: [id number] Authorizing Provider: Randy Bravo MD Collected: 04/30/2023 03:33 AM Ordering Location: [facility] DermPath Lab Received: 05/01/2023 01:16 PM Pathologist: Latrice Thibodeaux MD Specimens: A) - Skin, left hand B) - Skin, left ear 2:31 PM DISHTANK OPERATOR DERMATOPATHOLOGY LABORATORY Final Diagnosis Specimen A. SKIN, left hand: SUPERFICIAL (FOCALLY INVASIVE) SQUAMOUS CELL CARCINOMA ARISING IN AN ACTINIC KERATOSIS (C44.629) Specimen B. SKIN, left ear: BASAL CELL CARCINOMA, FRAGMENTS OF (C44.219) (see microscopic description) 2:31 PM [facility] DERMATOPATHOLOGY LABORATORY at [address] DISHTANK OPERATOR Clinical History A: Squamous Cell Carcinoma B: Basal Cell Carcinoma 2:31 PM [facility] DERMATOPATHOLOGY LABORATORY Gross Description Specimen A: [...] measuring 2x1x1 mm. Jar 0. 2:31 PM [facility] DERMATOPATHOLOGY LABORATORY Microscopic Description Specimen A. [...] sections were obtained and reviewed. 2:31 PM [facility] DERMATOPATHOLOGY LABORATORY Disclaimer An external and internal positive and negative controls are appropriate for the histochemical, immunohistochemical and immunofluorescence stain(s) in this case (if any), except where stated explicitly. The performance characteristics of the stain(s) cited in this report were developed and its performance characteristic determined by the Dermatopathology Laboratory at [facility], directed by Dr. Hoa Zayas. These tests need not be, and therefore are not, approved by the [place] Food and Drug Administration. The tests are used for clinical purposes. Billing Codes Specimen Charges Stain Charges 04008 91452 1 1 95153 1 2:31 PM [facility] DERMATOPATHOLOGY LABORATORY Embedded Images 2:31 PM [facility] DERMATOPATHOLOGY LABORATORY Pathology/Cytology TISSUE SPECIMEN FROM SKIN / Unknown 04/30/2023 3:33 AM DISHTANK OPERATOR 05/01/2023 1:16 PM DISHTANK OPERATOR Miscellaneous samples (specimen) TISSUE SPECIMEN FROM SKIN / Unknown 04/30/2023 3:33 AM DISHTANK OPERATOR 05/01/2023 1:29 PM DISHTANK OPERATOR us Randy Bravo MD LAB - PATHOLOGY/CYTOLOGY GIBRAN MARMOLEJO Final Result DERMATOPATHOLOGY LABORATORY [facility] - Department of Dermatology [facility] [address] [place] [address], [address] [phone] documented in this encounter Visit Diagnoses Diagnosis Neoplasm of uncertain behavior of skin documented in this encounter
--- OUTSIDE RECORDS SUMMARY | 2024-09-16 07:39 | XMS_ITS | Encounter Summary ---
Author Organization [facility] Address [address] [place] [address] Care Team Providers Care Production Machine Tender Name Role Phone Unavailable Primary Care Provider Unavailabl e Encounter Details Date Type Department Care Team (Late st Contact Info) Description 06/17/2024 Lab Requisition [facility] - DermPath Lab [address] [place] [id number] Randy Bravo MD [facility] DERMATOLOGY [address] [place] [phone] Neoplasm of uncertain behavior of skin Social History Tobacco Use Types Packs/Day Years Used Date Smoking Tobacco: Never Assessed Sex and Gender Information Value Date Recorded Sex Assigned at Not on file Legal Sex Male 4:35 PM MANAGER ACUTE Gender Identity Not on file Sexual Orientation Not on file documented as of this encounter Plan of Treatment Not on file documented as of this encounter Procedures Procedure Name Priority Date/Time Associated Diagnosis Comments DERMATOPATHOLOGY Routine 06/17/2024 3:33 AM CDT Neoplasm of uncertain behavior of skin documented in this encounter Results * DERMATOPATHOLOGY (06/17/2024 3:33 AM CDT) Case Report Dermatopathology Report Case: [id number] Authorizing Provider: Randy Bravo MD Collected: 06/17/2024 03:33 AM Ordering Location: [facility] - Received: 06/18/2024 12:37 PM [...] characteristic determined by the Dermatopathology Laboratory at [facility], directed by Dr. Hoa Zayas. These tests need not be, and therefore are not, approved by the [place] Food and Drug Administration. The tests are used for clinical purposes. Billing Codes Specimen Charges Stain Charges 75248 1 1:05 PM CDT DERMATOPATHOLOGY LABORATORY Embedded Images 1:05 PM CDT DERMATOPATHOLOGY LABORATORY Pathology/Cytolo gy TISSUE SPECIMEN FROM SKIN / Unknown 06/17/2024 3:33 AM CDT 06/18/2024 12:37 PM CDT Randy Bravo MD LAB - PATHOLOGY/CYTOLOGY [facility] [place] Final Result DERMATOPATHOLOGY LABORATORY [facility] - Department of Dermatology [address], [address] [phone] documented in this encounter Visit Diagnoses Diagnosis Neoplasm of uncertain behavior of skin documented in this encounter
[2024-09-16 07:43] LABS: INR 1.3; Prothrombin Time 16.3 Seconds (11.1-14.7)
[2024-09-16 07:44] LABS: Partial Thromboplastin Time 34.3 Seconds (22.3-36.8)
--- NOTE | 2024-09-16 07:45 | PC.NURSE ---
Patient complains of chest pressure. Verbal order from Dr Jefferson to give 324ASA and 1 nitro
--- NOTE | 2024-09-16 07:47 | ED_ITS ---
HPI - General Adult General Chief complaint: Weakness Stated complaint: WEAKNESS X 1WK Time Seen by Provider: 09/16/24 07:09 History of Present Illness HPI narrative: Patient is a 73-year-old male who presents ER with weakness. Ongoing for 1 week. Reports it took him 3 hours to get out of bed this morning because he is so fatigued. He has had some mild chest tightness but reports that is different than his typical cardiac issues that he has to take nitroglycerin for. No exertional chest pain. He has had some mild shortness of breath. He also reports nonproductive cough. Reports he has recently he has discontinued a blood pressure medicine that was causing his blood pressure to be in the 70s systolic (isosorbide mononitrate). Related Data Home Medications ?Medication ?Instructions ?Recorded ?Confirmed ?Last Taken ?Type ascorbic acid (vitamin C) 500 mg 500 mg PO DAILY 02/06/20 09/16/24 09/14/24 History tablet folic acid 1 mg tablet 1 mg PO DAILY 02/06/20 09/16/24 09/14/24 History levothyroxine 100 mcg tablet 100 mcg PO DAILY 02/06/20 09/16/24 09/14/24 History (Synthroid) rosuvastatin 5 mg tablet 5 mg PO DAILY 05/22/22 09/16/24 09/14/24 History nifedipine 30 mg tablet,extended 30 mg PO DAILY 09/16/24 09/16/24 09/14/24 History release 24 hr Allergies Allergy/AdvReac Type Severity Reaction Status Date / Time No Known Allergies Allergy Verified 05/28/22 07:46 Review of Systems 2 Review of Systems: All systems reviewed & are unremarkable except as noted in HPI and below Constitutional: Constitutional: Reports no additional constitutional complaints ENT: Reports system reviewed and no additional complaints, except as documented Cardiovascular: Cardiovascular: Reports no additional cardiovascular complaints Respiratory: Respiratory: Reports no additional respiratory complaints Musculoskeletal: Musculoskeletal: Reports no additional musculoskeletal complaints [facility] Past Medical History Medical History (Updated 09/16/24 @ 12:48 by Kaylyn Madison APRN) History of right common carotid artery stent placement Coronary artery disease Adenomatous colon polyp Hypertension Surgical History Surgical History History of percutaneous coronary intervention Social History Social History Smoking packs per day: 2 Smoking cigarettes per day: 40.0 Years smoked: 50 Smoking pack-years: 100.00 Smoking status: Former smoker Tobacco type: cigarettes Second hand tobacco smoke exposure: Yes Smoking end date: 09/06/13 Alcohol intake: current Drinks per week: 2 Alcohol use details: BEERS Substance use: never Substance use type: does not use Do You Feel Safe in your Home?: Yes Lack of Transportation: No Lack of Food: Never True Current Housing: I Have Housing Concerned About Future Housing: No Difficulty Paying Gas/Electric Bills: No Difficulty Paying for Meds: No Currently Unemployed: No Education: High School Diploma/GED Difficulty w/ Childcare or Family Care: No Living arrangements: with family Gender identity (if verbalized by the patient): Male Spiritual care concerns: No Exam 2 Narrative: GENERAL: Well-appearing, well-nourished, and in no acute distress. HEAD: Normocephalic, atraumatic. ENT:Mucous membranes moist. NECK: Supple. CHEST: Clear to auscultation. No respiratory distress. HEART: Regular rate and rhythm. Normal peripheral pulses. ABDOMEN: Soft, nontender, nondistended. EXTREMITIES: Normal range of motion. No edema. SKIN: Warm, dry, no rash. NEURO: Alert and oriented x3. PSYCH: Normal mood and affect. Course Course Emergency Course: 0752: Patient is reporting your chest pain would like to take nitroglycerin, this will be provided as well as aspirin. Additionally his potassium is critically elevated at 6 and will require medical treatment. 0925: Patient will be admitted to the hospitalist service. Nephrology, Cardiology, and General surgery have all been consulted. Patient will likely require temporary dialysis line. Patient and family educated on diagnosis and treatment plan and verbalized understanding. Vital Signs Vital signs: Vital Signs Temperature 97.8 F 09/16/24 07:11 Pulse Rate 93 09/16/24 07:11 Respiratory Rate 20 09/16/24 07:11 Blood Pressure 104/53 L 09/16/24 07:11 Pulse Oximetry 98 09/16/24 07:11 Oxygen Delivery Room Air 09/16/24 07:11 Temperature 98.8 F 09/16/24 17:57 Pulse Rate 87 09/16/24 17:57 Respiratory Rate 16 09/16/24 17:57 Blood Pressure 112/65 09/16/24 17:57 Pulse Oximetry 99 09/16/24 17:57 Oxygen Delivery Room Air 09/16/24 07:11 Medical Decision Making Vital Signs Vital Signs: Vital Signs Temperature 97.8 F 09/16/24 07:11 Pulse Rate 93 09/16/24 07:11 Respiratory Rate 20 09/16/24 07:11 Blood Pressure 104/53 L 09/16/24 07:11 Pulse Oximetry 98 09/16/24 07:11 Oxygen Delivery Room Air 09/16/24 07:11 Temperature 98.8 F 09/16/24 17:57 Pulse Rate 87 09/16/24 17:57 Respiratory Rate 16 09/16/24 17:57 Blood Pressure 112/65 09/16/24 17:57 Pulse Oximetry 99 09/16/24 17:57 Oxygen Delivery Room Air 09/16/24 07:11 Lab Data 09/16/24 14:07 09/16/24 14:59 Labs: Lab Results 09/16/24 09/16/24 09/16/24 Range/Units 07:26 07:46 08:23 WBC 13.6 H (4.5-10.0) K/mm3 RBC 3.15 L (4.6-6.20) M/mm3 Hgb 9.8 L (14.0-18.0) g/dL Hct 29.3 L (42.0-52.0) % MCV 93.0 (80-100) fl MCH 31.1 (26-34) pg MCHC 33.4 (32-36) g/dl RDW 14.0 (11.5-14.5) % Plt Count 237 (150-375) k/mm3 MPV 11.1 H (7.4-10.4) fl Immature Gran % (Auto) 0.7 H (0-0.5) % Neut % (Auto) 86.9 H (45.5-73.1) % Lymph % (Auto) 6.2 L (18.3-44.2) % [place] % (Auto) 5.6 (2.6-8.5) % Eos % (Auto) 0.2 (0-4.4) % Baso % (Auto) 0.4 (0.2-1.2) % Lymph # (Auto) 0.84 L (0.9-3.2) K/mm3 [place] # (Auto) 0.8 H (0.1-0.6) K/mm3 Eos # (Auto) 0.0 (0-0.3) K/mm3 Baso # (Auto) 0.1 (0.0-0.1) K/mm3 Abs Immat Gran (auto) 0.09 H (0.00-0.031) K/mm3 Absolute Neuts (auto) 11.9 H (1.3-6.7) K/mm3 Absolute Nucleated RBC 0.000 (0.0-0.012) K/mm3 Nucleated RBC % 0.0 (0.0-0.2) % PT 16.3 H (11.1-14.7) Seconds INR 1.3 APTT 34.3 (22.3-36.8) Seconds Sodium 135 L (137-145) mmol/L Potassium 6.0 H* (3.4-5.0) mmol/L Chloride 103 (98-107) mmol/L Carbon Dioxide < 5 L (22-30) mmol/L Anion Gap (4-12) mmol/L BUN 164 H* D (9-20) mg/dL Creatinine 20.08 H (0.7-1.3) mg/dL Estim Creat Clear Calc 3 ml/min Estimated GFR 2 L (59 - ) Glucose 96 (65-110) mg/dL POC Capillary Glucose 102 (65-105) mg/dl Lactic Acid 0.9 (0.7-2.0) mmol/L Calcium 7.7 L (8.4-10.2) mg/dL Total Bilirubin 0.6 (0.2-1.3) mg/dL AST 594 H (17-59) U/L ALT 465 H (6-50) U/L Alkaline Phosphatase 77 (38-126) U/L Troponin I 0.250 H* (0.000-0.034) ng/mL NT-Pro-B Natriuret Pep 8710 H (19.9-100) pg/mL Total Protein 6.8 (6.3-8.2) g/dL Albumin 3.7 (3.5-5.1) g/dL Lipase 363 H (23-300) U/L Hep Bs Antigen Negative (Negative) Hep Bs Antibody Negative Influenza A (RT-PCR) Negative (Negative) Influenza B (RT-PCR) Negative (Negative) RSV (RT-PCR) Negative (Negative) SARS-CoV-2 RNA (RT-PCR) Negative (Negative) 09/16/24 09/16/24 Range/Units 08:59 12:28 WBC (4.5-10.0) K/mm3 RBC (4.6-6.20) M/mm3 Hgb (14.0-18.0) g/dL Hct (42.0-52.0) % MCV (80-100) fl MCH (26-34) pg MCHC (32-36) g/dl RDW (11.5-14.5) % Plt Count (150-375) k/mm3 MPV (7.4-10.4) fl Immature Gran % (Auto) (0-0.5) % Neut % (Auto) (45.5-73.1) % Lymph % (Auto) (18.3-44.2) % [place] % (Auto) (2.6-8.5) % Eos % (Auto) (0-4.4) % Baso % (Auto) (0.2-1.2) % Lymph # (Auto) (0.9-3.2) K/mm3 [place] # (Auto) (0.1-0.6) K/mm3 Eos # (Auto) (0-0.3) K/mm3 Baso # (Auto) (0.0-0.1) K/mm3 Abs Immat Gran (auto) (0.00-0.031) K/mm3 Absolute Neuts (auto) (1.3-6.7) K/mm3 Absolute Nucleated RBC (0.0-0.012) K/mm3 Nucleated RBC % (0.0-0.2) % PT (11.1-14.7) Seconds INR APTT (22.3-36.8) Seconds Sodium (137-145) mmol/L Potassium (3.4-5.0) mmol/L Chloride (98-107) mmol/L Carbon Dioxide (22-30) mmol/L Anion Gap (4-12) mmol/L BUN (9-20) mg/dL Creatinine (0.7-1.3) mg/dL Estim Creat Clear Calc ml/min Estimated GFR (59 - ) Glucose (65-110) mg/dL POC Capillary Glucose 126 H (65-105) mg/dl Lactic Acid (0.7-2.0) mmol/L Calcium (8.4-10.2) mg/dL Total Bilirubin (0.2-1.3) mg/dL AST (17-59) U/L ALT (6-50) U/L Alkaline Phosphatase (38-126) U/L Troponin I 0.670 H* D (0.000-0.034) ng/mL NT-Pro-B Natriuret Pep (19.9-100) pg/mL Total Protein (6.3-8.2) g/dL Albumin (3.5-5.1) g/dL Lipase (23-300) U/L Hep Bs Antigen (Negative) Hep Bs Antibody Influenza A (RT-PCR) (Negative) Influenza B (RT-PCR) (Negative) RSV (RT-PCR) (Negative) SARS-CoV-2 RNA (RT-PCR) (Negative) ECG Data EKG #1: ECG completion date: 09/16/24 ECG completion time: 07:19 EKG Interpretation: normal rate (74), sinus rhythm, non-specific ST changes, normal QRS and normal QT Critical Care Time Critical Care Time Critical Care Time: Yes Total Critical Care Time: 45 Discharge Plan Discharge Clinical Impression: Hyperkalemia, Acute uremia, Acute on chronic renal failure, Volume overload, Transaminitis Patient Disposition: Still a Patient Condition: Serious
[2024-09-16] MEDS: ASPIRIN 81 MG CHEWABLE TABLET 324 MG PO (07:49)
[2024-09-16] MEDS: NITROGLYCERIN SL 0.4 MG TABLET SUBLINGUAL ×3 (07:49→13:25)
[2024-09-16 07:53] LABS: Alanine Aminotransferase 465 U/L (6-50); Albumin Level 3.7 g/dL (3.5-5.1); Alkaline Phosphatase 77 U/L (38-126); Aspartate Amino Transferase 594 U/L (17-59); Bilirubin,Total 0.6 mg/dL (0.2-1.3); Calcium 7.7 mg/dL (8.4-10.2); Carbon Dioxide < 5 mmol/L (22-30); Chloride 103 mmol/L (98-107); Estimated CRCL calculation 3 ml/min; Estimated Glomerular Filt Rate 2; Glucose 96 mg/dL (65-110); Lipase 363 U/L (23-300); Potassium 6.0 mmol/L (3.4-5.0); Sodium 135 mmol/L (137-145); Total Protein 6.8 g/dL (6.3-8.2)
[2024-09-16] MEDS: SODIUM BICARBONATE 8.4% 50 MEQ/50 ML SYRINGE IV PUSH (08:20)
[2024-09-16] MEDS: DEXTROSE 50% 25 GM/50 ML SYRINGE IV PUSH (08:20)
[2024-09-16] MEDS: INSULIN HUMAN REGULAR (*BKC) 100 UNITS/ML IV PUSH (08:22)
[2024-09-16] MEDS: CALCIUM GLUCONATE 1,000 MG/10 ML VIAL 1000 MG IV PUSH (08:22)
[2024-09-16 08:24] LABS: NT Pro B Type Natriuretic Pept 8710 pg/mL (19.9-100); Troponin I 0.250 ng/mL (0.000-0.034)
[2024-09-16 08:28] LABS: Influenza A QL RT-PCR Negative (Negative); Influenza B QL RT-PCR Negative (Negative); RSV RNA, RT-PCR Negative (Negative); SARS-CoV-2 RNA PCR Negative (Negative)
[2024-09-16 08:40] LABS: Blood Urea Nitrogen 164 mg/dL (9-20)
--- NOTE | 2024-09-16 08:47 | PC.NURSE ---
Patient bladder scanned and no urine found
--- NOTE | 2024-09-16 08:55 | PC.NURSE ---
Patient denies chest pain at this time
--- NOTE | 2024-09-16 10:18 | P.CONGS_ITS ---
Assessment and Plan Assessment and plan (1) Acute on chronic renal failure: Code(s): N17.9 - Acute kidney failure, unspecified; N18.9 - Chronic kidney disease, unspecified Status: Acute Assessment and Plan: * Patient presented with hyperkalemia and acute on chronic renal failure with BUN 164 and creatinine 20.0. Nephrology consulted. Our service was asked to place a temporary nontunneled hemodialysis catheter for urgent hemodialysis. Description of the procedure, risks, benefits, alternatives, and expected outcomes were discussed in detail. All questions were answered and patient agrees to proceed. Dr. Mcleod will plan on proceeding at the bedside this morning. (2) Hyperkalemia: Code(s): E87.5 - Hyperkalemia Status: Acute (3) Acute uremia: Code(s): N19 - Unspecified kidney failure Status: Acute (4) History of right common carotid artery stent placement: Code(s): Z98.890 - Other specified postprocedural states; Z95.828 - Presence of other vascular implants and grafts Status: Acute Assessment and Plan: * Reported right carotid stent placed in March 2024 and is currently on Plavix. Last does was 2 days ago. We discussed the urgent nature of requiring hemodialysis and that his Plavix would require 5 days to wear off. We discussed that this medication increases his risks of bleeding. Patient understands. (5) Antiplatelet or antithrombotic long-term use: Code(s): Z79.02 - prison (current) use of antithrombotics/antiplatelets Status: Acute (6) Elevated troponin: Code(s): R79.89 - Other specified abnormal findings of blood chemistry Status: Acute Plan I have discussed the patient's case and plan of care with Dr. Mcleod. History of Present Illness Consult details Consult date: 09/16/24 Reason for consult: other (Placement hemodialysis catheter) Requesting physician: Duane Jean MD Narrative: This is a 73-year-old man who presented to the ED today with weakness. He has chronic renal failure and is followed by Nephrology at [place]. About 3 weeks ago, he had outpatient labs for his [employer] and was told his renal function was declining. He was instructed to drink lots of fluids. He feels he has been doing that but progressively become more weak. He also complains of lower extremity pain and had chest tightness earlier today that was relieved with Nitro in the ED. Workup in the ED revealed acute renal failure with BUN 164, creatinine 20.08, potassium 6.0. Troponin also elevated at 0.250, BNP 8,700. Nephrology has been consulted and we were asked to see patient for placement of a temporary nontunneled hemodialysis catheter for urgent hemodialysis. He is now seen in the ED with his . To note, he had cardiac stents and a right carotid stent placed in March of 2024 and is on Plavix, which he last took 2 days ago. Review of Systems 2 Review of Systems: All systems reviewed & are unremarkable except as noted in HPI and below PMFSH Past Medical History Medical History (Updated 09/16/24 @ 10:28 by ALESSIA Dasilva) History of right common carotid artery stent placement Coronary artery disease Adenomatous colon polyp Hypertension Surgical History Surgical History History of percutaneous coronary intervention Social History Social History Smoking packs per day: 3 Smoking cigarettes per day: 60.0 Years smoked: 50 Smoking pack-years: 150.00 Smoking status: Former smoker Tobacco type: cigarettes Alcohol intake: current Drinks per week: 28 Alcohol use details: BEERS Substance use: never Substance use type: does not use Living arrangements: with family Gender identity (if verbalized by the patient): Male Spiritual care concerns: No Meds Home Medications and Allergies Home Medications ?Medication ?Instructions ?Recorded ?Confirmed ?Type ascorbic acid (vitamin C) 500 mg 500 mg PO DAILY 02/06/20 05/22/22 History tablet folic acid 1 mg tablet 1 mg PO DAILY 02/06/20 05/22/22 History levothyroxine 100 mcg tablet 100 mcg PO DAILY 02/06/20 05/22/22 History (Synthroid) lisinopril 20 mg tablet 20 mg PO BID 02/06/20 05/22/22 History rosuvastatin 5 mg tablet 5 mg PO DAILY 05/22/22 05/22/22 History Allergies Allergy/AdvReac Type Severity Reaction Status Date / Time No Known Allergies Allergy Verified 05/28/22 07:46 Vital Signs Vital Signs - 24 hr 09/16/24 07:11 09/16/24 07:45 09/16/24 08:45 Temperature 97.8 F Pulse Rate 93 93 76 Respiratory Rate 20 21 H 18 Blood Pressure 104/53 L 120/58 L 116/52 L Pulse Oximetry 98 100 99 Oxygen Delivery Room Air Exam 2 Const: General: comfortable and no acute distress Nutritional Appearance: a verage body habitus Orientation/consciousness: patient oriented x3 HENMT: Head: normocephalic and atraumatic Ears: hearing grossly normal bilaterally Mouth: Yes moist mucous membranes Eyes: General: appearance normal, both eyes and all related structures P upils: Equal, round and reactive pupils present Neck: Neck: normal visual inspection and full ROM Resp: Effort & Inspection: no respiratory distress Auscultation: clear to auscultation bilaterally Cardio: Rate: regular rate Rhythm: regular rhythm GI: Inspection: non-distended GI Palp: Yes Soft to palpation, No Tenderness to palpation present (GI), No Guarding due to palpation present (GI) and No Rebound tenderness present Auscultation: normal bowel sounds Other: Skin in bilateral groin areas appears healthy with no abnormalities Skin: General skin exam: normal color Neuro: General: moves all extremities and no focal motor deficits Speech: n ormal speech Motor exam (neuro): 5/5 motor strength present throughout Extrem: General: normal to inspection and no edema Psych: Mental Status: mental status grossly normal Attitude: cooperative Insight: Good insight present (Psych) Judgement: Good judgement present (Psych) Results Labs 09/16/24 07:26 09/16/24 07:26 Labs: Abnormal lab results 09/16/24 09/16/24 Range/Units 07:26 08:59 WBC 13.6 H (4.5-10.0) K/mm3 RBC 3.15 L (4.6-6.20) M/mm3 Hgb 9.8 L (14.0-18.0) g/dL Hct 29.3 L (42.0-52.0) % MPV 11.1 H (7.4-10.4) fl Immature Gran % (Auto) 0.7 H (0-0.5) % Neut % (Auto) 86.9 H (45.5-73.1) % Lymph % (Auto) 6.2 L (18.3-44.2) % Lymph # (Auto) 0.84 L (0.9-3.2) K/mm3 [place] # (Auto) 0.8 H (0.1-0.6) K/mm3 Abs Immat Gran (auto) 0.09 H (0.00-0.031) K/mm3 Absolute Neuts (auto) 11.9 H (1.3-6.7) K/mm3 PT 16.3 H (11.1-14.7) Seconds Sodium 135 L (137-145) mmol/L Potassium 6.0 H* (3.4-5.0) mmol/L Carbon Dioxide < 5 L (22-30) mmol/L BUN 164 H* D (9-20) mg/dL Creatinine 20.08 H (0.7-1.3) mg/dL Estimated GFR 2 L (59 - ) POC Capillary Glucose 126 H (65-105) mg/dl Calcium 7.7 L (8.4-10.2) mg/dL AST 594 H (17-59) U/L ALT 465 H (6-50) U/L Troponin I 0.250 H* (0.000-0.034) ng/mL NT-Pro-B Natriuret Pep 8710 H (19.9-100) pg/mL Lipase 363 H (23-300) U/L Diabetes panel 09/16/24 Range/Units 07:26 Sodium 135 L (137-145) mmol/L Potassium 6.0 H* (3.4-5.0) mmol/L Chloride 103 (98-107) mmol/L Carbon Dioxide < 5 L (22-30) mmol/L BUN 164 H* D (9-20) mg/dL Creatinine 20.08 H (0.7-1.3) mg/dL Glucose 96 (65-110) mg/dL Calcium 7.7 L (8.4-10.2) mg/dL AST 594 H (17-59) U/L ALT 465 H (6-50) U/L Alkaline Phosphatase 77 (38-126) U/L Total Protein 6.8 (6.3-8.2) g/dL Albumin 3.7 (3.5-5.1) g/dL Calcium panel 09/16/24 Range/Units 07:26 Calcium 7.7 L (8.4-10.2) mg/dL Albumin 3.7 (3.5-5.1) g/dL Pituitary panel 09/16/24 Range/Units 07:26 Sodium 135 L (137-145) mmol/L Potassium 6.0 H* (3.4-5.0) mmol/L Chloride 103 (98-107) mmol/L Carbon Dioxide < 5 L (22-30) mmol/L BUN 164 H* D (9-20) mg/dL Creatinine 20.08 H (0.7-1.3) mg/dL Glucose 96 (65-110) mg/dL Calcium 7.7 L (8.4-10.2) mg/dL Adrenal panel 09/16/24 Range/Units 07:26 Sodium 135 L (137-145) mmol/L Potassium 6.0 H* (3.4-5.0) mmol/L Chloride 103 (98-107) mmol/L Carbon Dioxide < 5 L (22-30) mmol/L BUN 164 H* D (9-20) mg/dL Creatinine 20.08 H (0.7-1.3) mg/dL Glucose 96 (65-110) mg/dL Calcium 7.7 L (8.4-10.2) mg/dL Total Bilirubin 0.6 (0.2-1.3) mg/dL AST 594 H (17-59) U/L ALT 465 H (6-50) U/L Alkaline Phosphatase 77 (38-126) U/L Total Protein 6.8 (6.3-8.2) g/dL Albumin 3.7 (3.5-5.1) g/dL All other labs normal. Imaging Additional studies: ITS Impressions Chest X-Ray 09/16/24 07:41 Impression: Normal chest.
[2024-09-16 11:02] LABS: Hepatitis B Surface Antigen Negative (Negative)
[2024-09-16 11:19] LABS: Hepatitis B Surface Anti Res Negative
--- NOTE | 2024-09-16 11:25 | ADMGEN ---
This patient, Derrek Diaz, was admitted to IMU Room 207-01 at 1024. Patient/family oriented to hospital policies and general routines including ID bracelet, bed and alarms, visiting hours, pain management, procedures, bathroom and other care routines, personal items, smoking policy, room service/diet, and visiting hours. Information on how to activate the Rapid Response Team has been discussed. Patient/Family are encouraged to report perceived risks to care and to ask questions if they do not understand what they are told or what they should do.
--- NOTE | 2024-09-16 12:15 | ECG_ITS ---
Test Date: 2024-09-16 12:35:51 Measurements Intervals [place] Rate: 75 P: 48 MT: 193 QRS: 53 QRSD: 102 T: 64 QT: 424 QTc: 474 Interpretive Statements SINUS RHYTHM MINIMAL ST DEPRESSION [0.025+ mV ST DEPRESSION] Compared to ECG 09/16/2024 07:19:14 First degree AV block no longer present ST (T wave) deviation still present Electronically Signed On 09-16-2024 14:43:57 CDT by Brad Valladares M.D.
--- NOTE | 2024-09-16 12:38 | P.HP_ITS ---
H&P: HPI History of Present Illness Date/Time: 09/16/24 12:38 Chief Complaint: Weakness and fatigue Narrative: 73-year-old male past medical history of right carotid artery stent, CAD, and hypertension presents the hospital with weakness and fatigue x1 week. Patient seen after dialysis and is extremely fatigued and falls asleep while talking. HPI limited due to patient being ill state we. Per the ED notes the patient was complaining of fatigue and weakness for the last several days and then had chest pain today so he presented to the hospital. Lab work in the ED shows leukocytosis at 13.6, anemia at 9.8, sodium 135, potassium 6.0, carbon dioxide less than 5, BUN of 164, creatinine of 20.08 estimated GFR 2, calcium 7.7, AST 594, ALT 465, troponin 0.25, be NPH 1710, lipase 363, chest x-ray shows no acute process. Cardiology, Nephrology and surgery have been consulted. Patient will have a temporal non tunneled femoral catheter for emergent dialysis today. Review of Systems Review of Systems: ROS unobtainable: Yes unobtainable due to medical condition [facility] Past Medical History Medical History (Updated 09/16/24 @ 18:52 by Jakub Daly MD) History of right common carotid artery stent placement Coronary artery disease Adenomatous colon polyp Hypertension Surgical History Surgical History History of percutaneous coronary intervention Social History Social History Smoking packs per day: 2 Smoking cigarettes per day: 40.0 Years smoked: 50 Smoking pack-years: 100.00 Smoking status: Former smoker Tobacco type: cigarettes Second hand tobacco smoke exposure: Yes Smoking end date: 09/06/13 Alcohol intake: current Drinks per week: 2 Alcohol use details: BEERS Substance use: never Substance use type: does not use Do You Feel Safe in your Home?: Yes Lack of Transportation: No Lack of Food: Never True Current Housing: I Have Housing Concerned About Future Housing: No Difficulty Paying Gas/Electric Bills: No Difficulty Paying for Meds: No Currently Unemployed: No Education: High School Diploma/GED Difficulty w/ Childcare or Family Care: No Living arrangements: with family Gender identity (if verbalized by the patient): Male Spiritual care concerns: No Meds Home Medications and Allergies Home Medications ?Medication ?Instructions ?Recorded ?Confirmed ?Type ascorbic acid (vitamin C) 500 mg 500 mg PO DAILY 02/06/20 09/16/24 History tablet folic acid 1 mg tablet 1 mg PO DAILY 02/06/20 09/16/24 History levothyroxine 100 mcg tablet 100 mcg PO DAILY 02/06/20 09/16/24 History (Synthroid) rosuvastatin 5 mg tablet 5 mg PO DAILY 05/22/22 09/16/24 History nifedipine 30 mg tablet,extended 30 mg PO DAILY 09/16/24 09/16/24 History release 24 hr Allergies Allergy/AdvReac Type Severity Reaction Status Date / Time No Known Allergies Allergy Verified 05/28/22 07:46 Vital Signs Vital Signs - 24 hr 09/16/24 07:11 09/16/24 07:45 09/16/24 08:45 Temperature 97.8 F Pulse Rate 93 93 76 Respiratory Rate 20 21 H 18 Blood Pressure 104/53 L 120/58 L 116/52 L Pulse Oximetry 98 100 99 Oxygen Delivery Room Air 09/16/24 12:00 Temperature 96.9 F L Pulse Rate 70 Respiratory Rate 18 Blood Pressure 98/44 L Pulse Oximetry 100 Oxygen Delivery Exam Narrative: General: well appearing, appears stated age. HEENT: normocephalic, atraumatic. Mucous membranes moist. EOMI, PERRLA, bilateral sclera anicteric, no conjunctival injection. Neck supple without JVD, lymphadenopathy, or bruit. Respiratory: clear to ascultation bilaterally. No rales/rhonic/wheezes. Cardiovascular: Regular rate and rhythm, normal S1-S2 upon ascultation. No murmurs, rubs, or clicks. PMI is nondisplaced, capillary refill less than 3 second. Abdomen: Soft, round, no pulsatile masses, nondistended and nontender. No rebound, no guarding. No CVA tenderness, no hepatosplenomegaly. Bowel sounds present to all four quadrants. No high pitch or tinkling sounds, resonant to percussion. Extremities: No cyanosis, clubbing, or edema present. Pulses are palpable 2/2. Active ROM to all four extremities. Left groin femoral dialysis catheter Neuro: Alert and orientated x 2. PERRLA. Cranial nerves 2-12 intact without focal deficit. Skin: Warm, dry, and intact, without rash, erythema, or lesion. Psych: Unable to assess H&P: Results Labs Labs: Short CBC 09/16/24 Range/Units 07:26 WBC 13.6 H (4.5-10.0) K/mm3 Hgb 9.8 L (14.0-18.0) g/dL Hct 29.3 L (42.0-52.0) % Plt Count 237 (150-375) k/mm3 BMP 09/16/24 07:26 Sodium 135 L Potassium 6.0 H* Chloride 103 Carbon Dioxide < 5 L BUN 164 H* D Creatinine 20.08 H Glucose 96 Calcium 7.7 L Cardiac Enzymes 09/16/24 Range/Units 07:26 Troponin I 0.250 H* (0.000-0.034) ng/mL Liver Function 09/16/24 Range/Units 07:26 Total Bilirubin 0.6 (0.2-1.3) mg/dL AST 594 H (17-59) U/L ALT 465 H (6-50) U/L Alkaline Phosphatase 77 (38-126) U/L Albumin 3.7 (3.5-5.1) g/dL Assessment and Plan Assessment and plan (1) Acute uremia: Code(s): N19 - Unspecified kidney failure Status: Acute Assessment and Plan: BUN 164, creatinine 20.08, GFR 2 on admission Acute kidney failure on CKD Nephrology consulted Bicarb, IV fluids, and calcium gluconate given in ED Plan for emergent catheter placement and dialysis today Repeat labs after dialysis (2) Elevated troponin: Code(s): R79.89 - Other specified abnormal findings of blood chemistry Status: Acute Assessment and Plan: Cardiology consulted Trend troponin EKG p.r.n. Nitro Heparin drip per protocol NPO midnight for possible cardiac catheterization (3) Hyperkalemia: Code(s): E87.5 - Hyperkalemia Status: Acute Assessment and Plan: Will be managed through dialysis (4) Volume overload: Code(s): E87.70 - Fluid overload, unspecified Status: Acute Assessment and Plan: Will be managed through dialysis (5) Shock liver: Code(s): K72.00 - Acute and subacute hepatic failure without coma Status: Acute Assessment and Plan: Likely secondary to hypertension and severe kidney failure CMP in the morning (6) Anemia: Code(s): D64.9 - Anemia, unspecified Status: Acute Assessment and Plan: Anemia workup pending No signs of acute bleeding Transfuse for hemoglobin less than 7 or symptomatic (7) Leukocytosis: Code(s): D72.829 - Elevated white blood cell count, unspecified Status: Acute Assessment and Plan: Chest x-ray with no acute process UA pending (8) Elevated brain natriuretic peptide (BNP) level: Code(s): R79.89 - Other specified abnormal findings of blood chemistry Status: Acute Assessment and Plan: Cardiology consulted Echocardiogram pending (9) Coronary artery disease: Code(s): I25.10 - Atherosclerotic heart disease of [place] coronary artery without angina pectoris Status: Acute Assessment and Plan: Continue nifedipine and statin (10) Hypertension: Code(s): I10 - Essential (primary) hypertension Status: Acute Assessment and Plan: Continue nifedipine Quality VTE Prophylaxis VTE prophylaxis: mechanical ordered and pharmacologic ordered Hospitalist MIPS Advance Care Plan I have confirmed that the patient's Advanced Care Plan is present, code status is documented, or surrogate decision maker is listed in patient medical record.: Yes Medication Reconciliation I have utilized all available resources to obtain, update and review the patients current medications (includes all prescriptions, OTC, herbals, cannabis, and nutritional supplements).: Yes
--- NOTE | 2024-09-16 12:53 | P.CONCA_ITS ---
Assessment and Plan Assessment and plan (1) Elevated troponin: Code(s): R79.89 - Other specified abnormal findings of blood chemistry Status: Acute (2) History of right common carotid artery stent placement: Code(s): Z98.890 - Other specified postprocedural states; Z95.828 - Presence of other vascular implants and grafts Status: Acute (3) Coronary artery disease: Code(s): I25.10 - Atherosclerotic heart disease of [place] coronary artery without angina pectoris Status: Acute (4) Hypertension: Code(s): I10 - Essential (primary) hypertension Status: Acute Plan NSTEMI with rising troponin and chest relieved with p.r.n. sublingual nitro- EKG shows sinus rhythm with nonspecific ST-T changes Elevated BNP of 8710 ANNA MARIE with creatinine of 20-etiology unclear Hyperkalemia with potassium of 6-secondary to ANNA MARIE Anemia with hemoglobin of 9.8 Plan: Patient will need cardiac catheterization to further evaluate his coronaries. However he has ANNA MARIE with creatinine of 20 at this time and he is to undergo dialysis. His potassium is 6. Giving contrast at this time will further worsen his renal function. Recommend medical management for NSTEMI for now with close monitoring and plan for catheterization once renal function improves and electrolyte disturbances are corrected Potassium is 6. Correct hyperkalemia per primary team P.r.n. sublingual nitro for chest pain. Unable to add nitro drip given soft blood pressure with SBP in the 90s to 110s range He received aspirin 325 mg p.o. once. Continue aspirin 81mg p.o. daily Unable to start statin given elevated LFTs Start heparin drip Check FLP TTE to evaluate LVEF and any wall motion abnormalities Trend troponin to peak Cardiology will continue to follow History of Present Illness History of Present Illness Consult date/time: 09/16/24 12:53 Reason For Visit: acute on chronic renal failure,volume overload,hyp Narrative: 73-year-old male with history of coronary artery disease status post stents (per patient he had 2 stents in 03/2024 at [facility]), carotid stenosis status post right common carotid artery stent placement at [facility] this year, hypertension, adenomatous colonic polyp presents with chief complaint of fatigue and weakness. Patient states that he was diagnosed with renal failure about 2 weeks ago. Has been having increased weakness and fatigue since the end of last month. He lost his appetite and is not eating and drinking as he normally does. He reports some muscle cramps in his lower extremities since 2 week. He reports cough and chest discomfort when he coughs hard. He states this chest discomfort is different than his anginal chest pain. He takes nitro p.r.n. for anginal chest pain and has used nitro 3 times since his PCI earlier this year. He is having off and on chest pain since this admission. He describes this as a sharp ache going through his chest from the front to the back without radiation to the arm neck or jaw. It is not associated with any diaphoresis or shortness of breath. He states that aspirin in the ER relieved his pain and p.r.n. nitro has helped to a basos of pain on the floor. He is currently chest pain free. He denies any dizziness, lightheadedness, presyncope, syncope, recent weight gain, leg swelling, orthopnea, PND, palpitations, nausea, emesis, headache, fever, chills. Lab work showed severe ANNA MARIE with creatinine of 20, hyperkalemia with potassium of 6, elevated BNP of 8710, elevated troponin 0.250. EKG shows sinus rhythm nonspecific ST T wave changes. General surgery was consulted and placed a line for dialysis. Cardiology is consulted for further recommendations for NSTEMI. Workup: Hemoglobin: 9.8 WBC: 13.6 BUN: 164 Creatinine: 20.08 Potassium: 6 Troponin: 0.250, 0.670 BNP: 8710 EKG: Sinus rhythm, nonspecific ST T wave changes Chest x-ray: No acute cardiopulmonary pathology Review of Systems 2 Review of Systems: Complete review of systems was performed and pertinent positives are reported in the [facility] Past Medical History Medical History (Updated 09/16/24 @ 12:48 by Kaylyn Madison, TIEING MACHINE OPERATOR) History of right common carotid artery stent placement Coronary artery disease Adenomatous colon polyp Hypertension Surgical History Surgical History History of percutaneous coronary intervention Social History Social History Smoking packs per day: 2 Smoking cigarettes per day: 40.0 Years smoked: 50 Smoking pack-years: 100.00 Smoking status: Former smoker Tobacco type: cigarettes Second hand tobacco smoke exposure: Yes Smoking end date: 09/06/13 Alcohol intake: current Drinks per week: 2 Alcohol use details: BEERS Substance use: never Substance use type: does not use Do You Feel Safe in your Home?: Yes Lack of Transportation: No Lack of Food: Never True Current Housing: I Have Housing Concerned About Future Housing: No Difficulty Paying Gas/Electric Bills: No Difficulty Paying for Meds: No Currently Unemployed: No Education: High School Diploma/GED Difficulty w/ Childcare or Family Care: No Living arrangements: with family Gender identity (if verbalized by the patient): Male Spiritual care concerns: No Meds Home Medications and Allergies Home Medications ?Medication ?Instructions ?Recorded ?Confirmed ?Type ascorbic acid (vitamin C) 500 mg 500 mg PO DAILY 02/06/20 09/16/24 History tablet folic acid 1 mg tablet 1 mg PO DAILY 02/06/20 09/16/24 History levothyroxine 100 mcg tablet 100 mcg PO DAILY 02/06/20 09/16/24 History (Synthroid) rosuvastatin 5 mg tablet 5 mg PO DAILY 05/22/22 09/16/24 History Allergies Allergy/AdvReac Type Severity Reaction Status Date / Time No Known Allergies Allergy Verified 05/28/22 07:46 Vital Signs Vital Signs - 24 hr 09/16/24 07:11 09/16/24 07:45 09/16/24 08:45 Temperature 36.6 C Pulse Rate 93 93 76 Respiratory Rate 20 21 H 18 Blood Pressure 104/53 L 120/58 L 116/52 L Pulse Oximetry 98 100 99 Oxygen Delivery Room Air 09/16/24 12:00 Temperature 36.1 C L Pulse Rate 70 Respiratory Rate 18 Blood Pressure 98/44 L Pulse Oximetry 100 Oxygen Delivery Exam 2 Narrative: General: Alert oriented x3, no acute distress Neck: Supple, JVD + Chest: Bilaterally clear to auscultation, no rales or rhonchi Cardiac: S1, S2 +, regular rate, regular rhythm, no murmurs or rubs Extremities: Bilateral lower extremity edema 1+, no skin rash Neurologic: Alert and oriented x3, no focal neurological deficits Results Labs and Meds 09/16/24 14:07 09/16/24 07:26 Lab results: Cardiac Enzymes 09/16/24 Range/Units 07:26 AST 594 H (17-59) U/L Troponin I 0.250 H* (0.000-0.034) ng/mL Coagulation 09/16/24 Range/Units 07:26 PT 16.3 H (11.1-14.7) Seconds APTT 34.3 (22.3-36.8) Seconds CBC 09/16/24 Range/Units 07:26 WBC 13.6 H (4.5-10.0) K/mm3 RBC 3.15 L (4.6-6.20) M/mm3 Hgb 9.8 L (14.0-18.0) g/dL Hct 29.3 L (42.0-52.0) % Plt Count 237 (150-375) k/mm3 Lymph # (Auto) 0.84 L (0.9-3.2) K/mm3 Davis # (Auto) 0.8 H (0.1-0.6) K/mm3 Eos # (Auto) 0.0 (0-0.3) K/mm3 Baso # (Auto) 0.1 (0.0-0.1) K/mm3 Comprehensive Metabolic Panel 09/16/24 Range/Units 07:26 Sodium 135 L (137-145) mmol/L Potassium 6.0 H* (3.4-5.0) mmol/L Chloride 103 (98-107) mmol/L Carbon Dioxide < 5 L (22-30) mmol/L BUN 164 H* D (9-20) mg/dL Creatinine 20.08 H (0.7-1.3) mg/dL Glucose 96 (65-110) mg/dL Calcium 7.7 L (8.4-10.2) mg/dL AST 594 H (17-59) U/L ALT 465 H (6-50) U/L Alkaline Phosphatase 77 (38-126) U/L Total Protein 6.8 (6.3-8.2) g/dL Albumin 3.7 (3.5-5.1) g/dL Intake and Output 09/15/24 09/16/24 09/16/24 23:59 07:59 15:59 Intake Total 999 Balance 999 Intake: IV 999 Sodium Chloride 0.9% IV 1,000 999 ml @ 999 mls/hr IV CONT .Q1H1M STA Rx#:[id number] Patient Weight 09/16/24 23:59 Weight 77.8 kg
[2024-09-16 13:08] LABS: Troponin I 0.670 ng/mL (0.000-0.034)
[2024-09-16] MEDS: LIDOCAINE 1% PF INJ 5 ML VIAL 10 ML INFILTRATE (13:30)
--- NOTE | 2024-09-16 13:46 | W.PM.PROC2 ---
Procedure Note - Detailed Date of Procedure 09/16/24 Pre-op Diagnosis acute on chronic renal failure,volume overload,hyp Post-op Diagnosis Other (Acute on chronic renal failure, hyperkalemia, uremia, need for emergent hemodialysis access.) Procedure Performed Placement of non tunneled temporary left common femoral vein Yuriy hemodialysis catheter. Surgeon William Mcleod MD Anesthesia Local Indications Patient is a 73-year-old gentleman who had underlying renal insufficiency and was followed by physical education professor. However over the past several days he has noted fatigue and weakness. Today started having chest pain and was severely weak and presented to the emergency room. He had some minor EKG changes which improved with administration of some liquid nitroglycerin. His BUN how was greater than 100 and his creatinine was greater than 20 and his potassium was 6. 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 Findings None significant Description of Procedure After informed consent was obtained the patient was placed supine in the hospital room bed. The bilateral groins were then examined and there was no rash or deformities in the groin region. The bilateral femoral arterial pulses were 2+ easily palpable. The bilateral groins were then prepped and draped usual sterile fashion. Time-out was then performed correctly identifying the patient as well as procedure to be performed. 1% lidocaine without epinephrine was injected just medial to the palpable left femoral artery pulse. I then used a long 18gauge needle to percutaneously cannulate the left common femoral vein on the 1st pass without any difficulty. There was prompt return of dark venous appearing blood. A guidewire was advanced through the needle into the left common femoral vein and up into the iliac vein. The needle was then removed. The insertion site of the guidewire was then enlarged with a scalpel and then dilators were serially advanced over the guidewire to enlarge to be not a me. Lastly a non tunneled temporary Yuriy hemodialysis catheter was advanced over the guidewire into the left common femoral vein subsequent up into the left iliac vein. The catheter was advanced to a distance of 20cm from the tip at the skin level. The catheter was then secured at the skin with 2-0 nylon sutures. The catheter had a 3rd pigtail IV port. All 3 ports were then aspirated and they stanislaw back blood easily. They were then flushed with saline solution. A sterile dressing was then placed in the patient was then taken urgently to the hemodialysis unit for hemodialysis. The patient tolerated the procedure well no complications. All sponges, needles, and instrument counts were correct at the end procedure. EBL was _20__cc. The patient was awakened and taken to recovery in stable and satisfactory condition. Implants Temporary non tunneled Yuriy hemodialysis catheter placed left common femoral vein Estimated Blood Loss 20 Drains No Packing No Pathology None sent Complications No immediate complications Condition Stable Disposition Floor [facility] Billing Surgery - Charge Forward: Surgery Billing
[2024-09-16 14:16] LABS: Hematocrit 27.0 % (42.0-52.0); Hemoglobin 9.0 g/dL (14.0-18.0); Immature Granulocyte Percent A 0.8 % (0-0.5); Lymphocytes Absolute Auto 0.72 K/mm3 (0.9-3.2); Mean Corpuscular HGB Conc 33.3 g/dl (32-36); Mean Corpuscular Hemoglobin 31.3 pg (26-34); Mean Corpuscular Volume 93.8 fl (80-100); Nucleated Red Blood Cells Absolute Auto 0.000 K/mm3 (0.0-0.012); Nucleated Red Blood Cells Perc 0.0 % (0.0-0.2); Platelet Count Result 203 k/mm3 (150-375); Red Blood Count 2.88 M/mm3 (4.6-6.20); White Blood Count 11.3 K/mm3 (4.5-10.0)
[2024-09-16 14:28] LABS: INR 1.3; Prothrombin Time 15.8 Seconds (11.1-14.7)
[2024-09-16 14:29] LABS: Partial Thromboplastin Time 33.3 Seconds (22.3-36.8)
[2024-09-16] MEDS: HEPARIN SOD/D5W 100 UNITS/ML 25,000 UNITS/250 ML BAG 14 UNITS IV CONT (14:33)
[2024-09-16 15:46] LABS: Troponin I 0.823 ng/mL (0.000-0.034)
[2024-09-16 15:47] LABS: Alanine Aminotransferase 408 U/L (6-50); Albumin Level 3.4 g/dL (3.5-5.1); Alkaline Phosphatase 69 U/L (38-126); Aspartate Amino Transferase 429 U/L (17-59); Bilirubin,Total 0.4 mg/dL (0.2-1.3); Calcium 7.1 mg/dL (8.4-10.2); Carbon Dioxide < 5 mmol/L (22-30); Chloride 104 mmol/L (98-107); Estimated CRCL calculation 3 ml/min; Estimated Glomerular Filt Rate 2; Glucose 91 mg/dL (65-110); Potassium 6.0 mmol/L (3.4-5.0); Sodium 135 mmol/L (137-145); Total Protein 6.0 g/dL (6.3-8.2)
--- NOTE | 2024-09-16 15:48 | P.CONNP_ITS ---
Assessment and Plan Assessment and plan (1) Acute kidney injury: Code(s): N17.9 - Acute kidney failure, unspecified Status: Acute Assessment and Plan: * etiology not clear * significant decline in renal function/creatinine noted by labs on admission * possibly due to hypotension(?) * ultrasound in July 2024 was normal * check UA, urine culture, urine studies, CPK, and serologies * due to hyperkalemia, severe acidosis, and possible uremia, plan urgent dialysis today * s/p temporary femoral line by Surgery * HD today and likely tomorrow * follow trend of electrolytes, acidosis, and azotemia * follow trend of repeat labs and UOP to assess for potential recovery (2) Chronic kidney disease: Code(s): N18.9 - Chronic kidney disease, unspecified Status: Chronic Assessment and Plan: * specifics are not clear... * according to patient, last testing ~ 1 month ago noted his kidney function at 40% * last creatinine here in March 2024 was 1.28mg/dl * try to obtain records from primary tour counselor (Dr. Robert Shultz) regarding baseline kidney function and what evaluation has been done (3) NSTEMI (non-ST elevated myocardial infarction): Code(s): I21.4 - Non-ST elevation (NSTEMI) myocardial infarction Status: Acute Assessment and Plan: * known history of CAD with stenting * elevated troponins noted * EKG results reviewed * ongoing chest pain present * on heparin gtt * Cardiology following (4) Hyperkalemia: Code(s): E87.5 - Hyperkalemia Status: Acute Assessment and Plan: * as noted on admission * resistant to medical therapy * CERTIFIED NURSE AIDE/dialysis for correction (5) Metabolic acidosis: Code(s): E87.20 - Acidosis, unspecified Status: Acute Assessment and Plan: * presumably due to severity of ANNA MARIE * lactic acid normal * should correct with CERTIFIED NURSE AIDE/dialysis (6) Hypertension: Code(s): I10 - Essential (primary) hypertension Status: Chronic Assessment and Plan: * somewhat on the soft side * follow trend of hemodynamics (7) Anemia: Qualifiers: Anemia type: due to chronic kidney disease Chronic kidney disease stage: unspecified stage Qualified Code(s): N18.9 - Chronic kidney disease, unspecified; D63.1 - Anemia in chronic kidney disease Code(s): D64.9 - Anemia, unspecified Status: Acute Assessment and Plan: * presumably related to ANNA MARIE +/- CKD and acute illness * follow trend of H/H * Epogen with HD (8) Transaminitis: Code(s): R74.01 - Elevation of levels of liver transaminase levels Status: Acute Assessment and Plan: * as noted by admission labs * presumably due cardiac event and subsequent hypoperfusion (?) * follow trend Long extensive discussion (greater than 25 minutes) with the patient regarding the severe decline /insult to his kidneys with associated critical electrolyte abnormalities in the form of hyperkalemia as well as severe metabolic acidosis and significant azotemia with possible contributing symptoms of uremia as well. Given the severity of all these issues, I recommend renal replacement therapy / dialysis in effort to stabilize his potassium, correct his acidosis, and provide some clearance of the uremic toxins. I discussed in detail with the patient that he may require several treatments of dialysis given the severity of his acute kidney injury with the hope that once these conditions are corrected, there is a possibility that his kidney function could recover. I discussed in detail the procedure of dialysis, the pros, cons, the risks, and the benefits as well as necessity of a dialysis catheter placement as well. He was agreeable to proceed. I will continue to follow the patient with you while he remains hospitalized and make further recommendations as deemed necessary. Thank you for allowing me to participate in the care of this patient. L History of Present Illness Reason for Consult Consult date: 09/16/24 Reason for consult: acute renal failure (on chronic kidney disease) Chief Complaint Chief complaint: acute on chronic renal failure,volume overload,hyp History of Present Illness Narrative: The patient is a 73-year-old male with a past medical history as outlined below who presented to [facility] Emergency Room due to generalized weakness and fatigue. The patient states that the symptoms have been present for about the last week if not longer. Initially, he thought the symptoms related to his low blood pressure as he has had multiple medication changes recently. He did have an ER visit in late August of this year to [facility] for this same problem and his blood pressure medications were adjusted at that time. However, on the day of admission, he reported chest pain that was quite significant and different from his typical anginal chest pain. He described the chest pain as a sharp feeling going through his chest from the front to the back without any radiation to his arm, neck, or jaw. No associated diaphoresis or shortness of breath was present. He denies any symptoms of dizziness, lightheadedness, syncope, weight gain, lower extremity swelling, orthopnea, PND, palpitations, nausea, or vomiting. Given these symptoms, he presented to the ER for further evaluation. Workup and evaluation emergency room demonstrated the patient to be hemodynamically stable but in mild distress. His EKG showed sinus rhythm with nonspecific ST and T-wave changes. Routine blood work demonstrated a white blood cell count of 13.6, hemoglobin 9.8, sodium 135, potassium 6.0, carbon dioxide less than 5, BUN of 164, creatinine of 20.08, calcium 7.7, AST of 594, ALT of 465, lipase 363, troponin 0.25. His chest x-ray was negative. He received medical management for his hyperkalemia as well as his severe metabolic acidosis and Cardiology was consulted due to concerns for a possible non ST elevation GA. Since his admission, he continues to have fluctuating chest pain in his association with fatigue. Given the severity of his hyperkalemia and metabolic acidosis, surgery was consulted for placement of a temporary dialysis catheter for urgent renal replacement therapy/dialysis. Renal consultation was requested due to his acute kidney injury/acute renal failure in conjunction with hyperkalemia and metabolic acidosis as well as uremia/azotemia. According to the patient, he was reportedly told that he had renal dysfunction about 2-3 weeks ago when he was referred to an outpatient tour counselor. He cannot give me specifics in terms of what he was told with regard to his creatinine but he does recall stating that he was told that his kidneys were working about 40% of normal. As part of his evaluation for this issue, he did have a renal ultrasound done as noted in the Sim computer system. Other associated symptoms aside from his weakness, fatigue and chest discomfort include poor appetite and diminished fluid intake in association with lower extremity muscle cramps. As already mentioned above, given the severity of his renal dysfunction, surgery was consulted and placed a temporary dialysis catheter for dialysis. Currently, at the time my evaluation, he appears to be tolerating dialysis reasonably well ( the patient was seen earlier in the emergency room and currently during his dialysis treatment at 3:30PM). Review of Systems 2 Review of Systems: As per HPI. [facility] Past Medical History Medical History (Updated 09/24/24 @ 12:36 by Jakub Daly MD) Occult blood in stools Acute on chronic anemia History of right common carotid artery stent placement Coronary artery disease Adenomatous colon polyp Hypertension Surgical History Surgical History History of percutaneous coronary intervention Social History Social History Smoking packs per day: 2 Smoking cigarettes per day: 40.0 Years smoked: 50 Smoking pack-years: 100.00 Smoking status: Former smoker Tobacco type: cigarettes Second hand tobacco smoke exposure: Yes Smoking end date: 09/06/13 Alcohol intake: current Drinks per week: 2 Alcohol use details: BEERS Substance use: never Substance use type: does not use Do You Feel Safe in your Home?: Yes Lack of Transportation: No Lack of Food: Never True Current Housing: I Have Housing Concerned About Future Housing: No Difficulty Paying Gas/Electric Bills: No Difficulty Paying for Meds: No Currently Unemployed: No Education: High School Diploma/GED Difficulty w/ Childcare or Family Care: No Living arrangements: with family Gender identity (if verbalized by the patient): Male Spiritual care concerns: No Meds Home Medications and Allergies Home Medications ?Medication ?Instructions ?Recorded ?Confirmed ?Type ascorbic acid (vitamin C) 500 mg 500 mg PO DAILY 02/06/20 09/16/24 History tablet folic acid 1 mg tablet 1 mg PO DAILY 02/06/20 09/16/24 History levothyroxine 100 mcg tablet 100 mcg PO DAILY 02/06/20 09/16/24 History (Synthroid) rosuvastatin 5 mg tablet 5 mg PO DAILY 05/22/22 09/16/24 History nifedipine 30 mg tablet,extended 30 mg PO DAILY 09/16/24 09/16/24 History release 24 hr ticagrelor 90 mg tablet (Brilinta) 90 mg PO Q12HR 30 days #60 tabs 09/20/24 Rx Allergies Allergy/AdvReac Type Severity Reaction Status Date / Time icosapent ethyl (From Allergy Diarrhea Verified 09/22/24 12:12 Vascepa) Sulfa (Sulfonamide Allergy rash Verified 09/22/24 12:12 Antibiotics) Vital Signs Vital Signs Temp Pulse Resp BP Pulse Ox O2 Del Method 09/16/24 15:45 82 102/62 09/16/24 15:30 75 105/55 L 09/16/24 15:17 76 113/56 L 09/16/24 15:10 97.5 F L 76 16 120/56 L 100 09/16/24 14:00 75 09/16/24 12:00 72 09/16/24 12:00 96.9 F L 70 18 98/44 L 100 09/16/24 08:45 76 18 116/52 L 99 09/16/24 07:45 93 21 H 120/58 L 100 09/16/24 07:11 97.8 F 93 20 104/53 L 98 Room Air Exam 2 Narrative: GENERAL APPEARANCE: elderly but well developed well nourished male in no acute distress HEENT: normocephalic, atraumatic, normal conjunctiva and sclera, nares patient NECK: no lymphadenopathy, thyromegaly, or JVD MOUTH: normal lips, teeth, and gums CARDIOVASCULAR: RRR, normal S1 and S2, no rub RESPIRATORY: clear to auscultation ABDOMEN: soft, nontender, nondistended, positive bowel sounds present EXTREMITIES: no evidence of cyanosis, clubbing, or edema NEUROLOGICAL: alert and oriented x 3; CN II - XII intact bilaterally; no focal deficits noted Results Lab Results 09/23/24 04:04 09/23/24 04:04 Lab results: Most recent lab results Calcium Cancelled 09/16/24 18:42
[2024-09-16 15:55] LABS: Blood Urea Nitrogen 171 mg/dL (9-20)
[2024-09-16 16:05] LABS: Cholesterol 86 mg/dL (0-200); HDL Direct 15 mg/dL; Triglycerides 261 mg/dL (<150)
--- NOTE | 2024-09-16 18:39 | ECG_ITS ---
Test Date: 2024-09-16 18:24:12 Measurements Intervals [place] Rate: 87 P: 25 HI: 168 QRS: 37 QRSD: 119 T: 87 QT: 391 QTc: 472 Interpretive Statements SINUS RHYTHM ST-T WAVE CHANGES IN LEADS I AND AVL SUGGESTIVE OF ISCHEMIA Compared to ECG 09/16/2024 12:35:51 NO CHANGES Electronically Signed On 09-17-2024 11:45:32 CDT by Brad Valladares M.D.
[2024-09-16 19:12] LABS: Alanine Aminotransferase 403 U/L (6-50); Albumin Level 3.2 g/dL (3.5-5.1); Alkaline Phosphatase 76 U/L (38-126); Anion Gap 18 mmol/L (4-12); Aspartate Amino Transferase 474 U/L (17-59); Bilirubin,Total 0.5 mg/dL (0.2-1.3); Blood Urea Nitrogen 105 mg/dL (9-20); Calcium 7.4 mg/dL (8.4-10.2); Carbon Dioxide 18 mmol/L (22-30); Chloride 102 mmol/L (98-107); Estimated CRCL calculation 5 ml/min; Estimated Glomerular Filt Rate 4; Glucose 118 mg/dL (65-110); Potassium 3.1 mmol/L (3.4-5.0); Sodium 138 mmol/L (137-145); Total Protein 5.8 g/dL (6.3-8.2); Troponin I 1.960 ng/mL (0.000-0.034)
[2024-09-16 21:09] LABS: Partial Thromboplastin Time 190.7 Seconds (22.3-36.8)
[2024-09-17] VITALS (41 sets, daily range): BP systolic 73–137; BP diastolic 49–69; PULSE 68–100; RESP 12–20; TEMP 36–37.6; O2SAT 90–99
--- NOTE | 2024-09-17 | ECHO_ITS ---
Patient Info Name: Derrek Diaz Age: 73 years : 1950 Gender: Male Ht: 69 in Wt: 171 lbs BSA: 1.95 m2 HR: 84 bpm BP: 123 / 58 mmHg Technical Quality: Good Exam Date: 09/17/2024 1:20 PM Patient Status: I Admit Date: 09/16/2024 Exam Type: CA echo doppler color flow Complete two-dimensional, color flow and Doppler transthoracic echocardiogram is performed. Staff Referring Physician: Duke Jefferson MD Urgent Care Technician: Paloma Carrillo Attending Provider: Duane Jean MD Summary 1. Complete two-dimensional, color flow and Doppler transthoracic echocardiogram is performed. 2. This was a technically difficult study with poorly visualized acoustic windows and limited views. 3. There is normal biventricular size and systolic function. 4. There is at least mild aortic stenosis. Due to limited windows and poorly visualized acoustic views, unable to quantify the degree of aortic stenosis in this study. Left Ventricle The left ventricle is normal in size and systolic function. The left ventricular ejection fraction is visually estimated to be 60-65%. Right Ventricle The right ventricle is normal in size and systolic function. Left Atria The left atrium is normal size. Right Atria The right atrium is normal size. Atrial Septum The atrial septum is not well visualized. Aortic Valve The aortic valve is calcified and there is at least mild aortic stenosis. Pulmonic Valve The pulmonic valve is not well visualized. Mitral Valve There is mitral annular calcification. The mitral valve leaflets are sclerotic. There is no mitral stenosis. There is no mitral regurgitation. Tricuspid Valve The tricuspid valve is normal. There is trace tricuspid regurgitation. Pericardium/Pleural Pericardium is normal in appearance with no evidence for significant pericardial effusion. Inferior Vena Cava Normal inferior vena cava with >50% collapse upon inspiration consistent with normal right atrial pressure, 3 mmHg. Aorta The aortic root at the level of the sinus of Valsalva measures 3.6 cm in diameter. Left Ventricular Outflow Tract Name Value Normal LVOT 2D LVOT Diameter 2.0 cm LVOT Doppler LVOT Peak Velocity 119 cm/s LVOT Peak Gradient 6 mmHg LVOT Mean Gradient 3 mmHg LVOT VTI 22 cm LVOT VTI/AV VTI Ratio 0.7 LVOT Stroke Volume 70 ml LVOT CO 5.1 l/min LVOT CI 2.6 l/min/m2 Pulmonic Valve Name Value Normal PV Doppler PV Peak Velocity 94 cm/s PV Peak Gradient 4 mmHg Mitral Valve Name Value Normal MV Diastolic Function MV E Peak Velocity 81 cm/s MV A Peak Velocity 118 cm/s MV E/A 0.7 MV Decel Time (PW) 312 ms MV Annular TDI MV E/e' (Septal) 13.4 MV E/e' (Lateral) 10.5 MV E/e' (Average) 12.0 Tricuspid Valve Name Value Normal TV Regurgitation Doppler TR Peak Velocity 200 cm/s TR Peak Gradient 16 mmHg Estimated PAP/RSVP RA Pressure 3 mmHg <=5 PA Systolic Pressure 19 mmHg <36 RV Systolic Pressure 19 mmHg <36 TV Annular TDI TV Lateral Yesica s' Velocity 14.3 cm/s >=9.5 Aortic Valve Name Value Normal AV 2D/MM AV Area (Planimetry) 1.5 cm2 AV Doppler AV Peak Velocity 181 cm/s AV Peak Gradient 13 mmHg AV Mean Gradient 6 mmHg AV VTI 32 cm AV Area (Cont Eq VTI) 2.2 cm2 >=3.0 AV Area (Cont Eq Ricardo) 2.2 cm2 AV DI (Ricardo) 0.66 AV Regurgitation 2D LVOT Area 3.3 cm2 Ventricles Name Value Normal LV Dimensions 2D/MM IVS Diastolic Thickness (2D) 0.9 cm 0.6-1.0 LVID Diastole (2D) 4.8 cm 4.2-5.8 LVIW Diastolic Thickness (2D) 0.9 cm 0.6-1.0 LVID Systole (2D) 3.1 cm 2.5-4.0 LVOT Diameter 2.0 cm LV Mass (2D Cubed) 147.36 g 88.00-224.00 LV Mass Index (2D Cubed) 75 g/m2 49-115 Relative Wall Thickness (2D) 0.36 <=0.42 LV Fractional Shortening/Ejection Fraction 2D/MM LV Fractional Shortening (2D) 35 % 25-43 LV EF (2D Teichholz) 64 % LV Diastolic Volume (4C MOD) 91 ml LV EF (4C MOD) 63 % LV Diastolic Volume (2C MOD) 93 ml LV EF (2C MOD) 61 % LV Diastolic Volume (BP MOD) 93 ml 62-150 LV Diastolic Volume Index (BP MOD) 48 ml/m2 34-74 LV Systolic Volume (BP MOD) 35 ml 21-61 LV Systolic Volume Index (BP MOD) 18 ml/m2 11-31 LV EF (BP MOD) 62 % 52-72 LV Diastolic Length (4C) 8.8 cm LV Systolic Length (4C) 6.8 cm LV Stroke Volume (4C MOD) 58 ml Atria Name Value Normal LA Dimensions LA Volume (4C A-L) 43 ml LA Volume (BP A-L) 43 ml RA Dimensions RA Systolic Major [place] Length (4C) 5.2 cm 2.1-2.7 RA Area (4C) 13.2 cm2 <=18.0 Report Signatures
[2024-09-17 04:47] LABS: Hematocrit 22.2 % (42.0-52.0); Hemoglobin 7.5 g/dL (14.0-18.0); Immature Granulocyte Percent A 0.5 % (0-0.5); Lymphocytes Absolute Auto 0.72 K/mm3 (0.9-3.2); Mean Corpuscular HGB Conc 33.8 g/dl (32-36); Mean Corpuscular Hemoglobin 30.6 pg (26-34); Mean Corpuscular Volume 90.6 fl (80-100); Nucleated Red Blood Cells Absolute Auto 0.000 K/mm3 (0.0-0.012); Nucleated Red Blood Cells Perc 0.0 % (0.0-0.2); Platelet Count Result 184 k/mm3 (150-375); Red Blood Count 2.45 M/mm3 (4.6-6.20); White Blood Count 9.4 K/mm3 (4.5-10.0)
[2024-09-17 05:14] LABS: Alanine Aminotransferase 352 U/L (6-50); Albumin Level 2.9 g/dL (3.5-5.1); Alkaline Phosphatase 62 U/L (38-126); Anion Gap 17 mmol/L (4-12); Aspartate Amino Transferase 351 U/L (17-59); Bilirubin,Total 0.4 mg/dL (0.2-1.3); Blood Urea Nitrogen 121 mg/dL (9-20); Calcium 6.9 mg/dL (8.4-10.2); Carbon Dioxide 18 mmol/L (22-30); Chloride 103 mmol/L (98-107); Estimated CRCL calculation 4 ml/min; Estimated Glomerular Filt Rate 3; Glucose 102 mg/dL (65-110); Potassium 3.7 mmol/L (3.4-5.0); Sodium 138 mmol/L (137-145); Total Protein 5.4 g/dL (6.3-8.2)
[2024-09-17 05:39] LABS: Partial Thromboplastin Time 169.1 Seconds (22.3-36.8)
--- NOTE | 2024-09-17 06:31 | PCCARD ---
09/16/24 1539 EKG ORDERED STAT. CARDIOLOGY WENT TO DO @ 1540 AND PATIENT WAS NOT AVAILABLE TO FOR US TO DO EKG. RN NEVER CALLED TO HAVE DONE.
--- NOTE | 2024-09-17 09:48 | PM.PNGS ---
Progress Note: A&P Assessment and Plan (1) Acute on chronic renal failure: Code(s): N17.9 - Acute kidney failure, unspecified; N18.9 - Chronic kidney disease, unspecified Status: Acute Assessment and Plan: Patient had a non tunneled left groin hemodialysis catheter placed at the bedside yesterday. In the afternoon, he was started on a heparin infusion and has since been having issues with using around his dialysis catheter. This is likely related to his anticoagulation. Will apply a pressure dressing and continue to monitor. Hemoglobin 7.5 this morning. Continue to trend serial labs, H/H ordered for noon. Plan I have discussed the patient's case and plan of care with Dr. Mcleod. Subjective Subjective Date/Time Seen: 09/17/24 08:48 Post Op day: 1 (Temporary non tunneled hemodialysis catheter placement) Interval history: Called by nursing staff as patient has had issues with oozing from his left groin dialysis catheter. They have had to change the dressing multiple times overnight. To note, the patient was started on a heparin infusion yesterday afternoon. PTT this morning is 160. The patient is seen in dialysis. Exam Narrative: Left groin central line in place with gauze dressing completely saturated in bloody drainage. Dressing removed and there is very slow bloody oozing around the catheter at the insertion site. Pressure dressing applied. 1L IV fluid bag laid over the left groin area to apply mild additional pressure. Const: General: comfortable, no acute distress and ill appearing Objective Data Vital Signs Vital Signs: Vital Signs - 24 hr 09/16/24 12:00 09/16/24 12:00 09/16/24 14:00 Temperature 96.9 F L Pulse Rate 70 72 75 Respiratory Rate 18 Blood Pressure 98/44 L Pulse Oximetry 100 Oxygen Delivery Fraction of Inspired Oxygen 09/16/24 15:10 09/16/24 15:17 09/16/24 15:30 Temperature 97.5 F L Pulse Rate 76 76 75 Respiratory Rate 16 Blood Pressure 120/56 L 113/56 L 105/55 L Pulse Oximetry 100 Oxygen Delivery Fraction of Inspired Oxygen 09/16/24 15:45 09/16/24 16:00 09/16/24 16:00 Temperature Pulse Rate 82 71 84 Respiratory Rate Blood Pressure 102/62 101/60 Pulse Oximetry Oxygen Delivery Fraction of Inspired Oxygen 09/16/24 16:15 09/16/24 16:30 09/16/24 16:45 Temperature Pulse Rate 82 82 83 Respiratory Rate Blood Pressure 101/63 101/56 L 94/62 L Pulse Oximetry Oxygen Delivery Fraction of Inspired Oxygen 09/16/24 17:00 09/16/24 17:15 09/16/24 17:30 Temperature Pulse Rate 83 88 85 Respiratory Rate Blood Pressure 96/67 L 114/72 106/58 L Pulse Oximetry Oxygen Delivery Fraction of Inspired Oxygen 09/16/24 17:48 09/16/24 17:57 09/16/24 18:00 Temperature 98.8 F Pulse Rate 85 87 86 Respiratory Rate 16 Blood Pressure 102/57 L 112/65 Pulse Oximetry 99 Oxygen Delivery Fraction of Inspired Oxygen 09/16/24 20:00 09/16/24 20:00 09/16/24 22:00 Temperature 98.7 F Pulse Rate 89 87 78 Respiratory Rate 16 Blood Pressure 139/73 Pulse Oximetry 99 Oxygen Delivery Fraction of Inspired Oxygen 09/16/24 22:17 09/16/24 23:59 09/17/24 00:00 Temperature 98.2 F Pulse Rate 97 74 73 Respiratory Rate 20 16 Blood Pressure 119/55 L Pulse Oximetry 92 99 Oxygen Delivery Room Air Fraction of Inspired Oxygen 21 09/17/24 02:00 09/17/24 03:36 09/17/24 04:00 Temperature 98.1 F Pulse Rate 87 70 84 Respiratory Rate 16 Blood Pressure 123/58 L Pulse Oximetry 99 Oxygen Delivery Fraction of Inspired Oxygen 09/17/24 06:00 09/17/24 08:00 09/17/24 08:25 Temperature 98.0 F 99.7 F H Pulse Rate 85 71 70 Respiratory Rate 20 16 Blood Pressure 97/52 L 94/56 L Pulse Oximetry 99 97 Oxygen Delivery Fraction of Inspired Oxygen 09/17/24 08:33 09/17/24 08:45 09/17/24 09:00 Temperature Pulse Rate 69 84 83 Respiratory Rate Blood Pressure 99/59 L 105/64 94/64 L Pulse Oximetry Oxygen Delivery Fraction of Inspired Oxygen 09/17/24 09:15 09/17/24 09:30 Temperature Pulse Rate 84 83 Respiratory Rate Blood Pressure 92/58 L 106/65 Pulse Oximetry Oxygen Delivery Fraction of Inspired Oxygen Intake/Output Intake/Output: Intake & Output 09/14/24 09/15/24 09/16/24 07/10/25 23:59 23:59 23:59 23:59 Intake Total 1272.3 89.6 Output Total 0 Balance 1272.3 89.6 Meds/Results Medications: Active Medications Generic Name Dose Route Start Last Admin Trade Name Freq PRN Reason Stop Dose Admin Acetaminophen 650 mg 09/16/24 12:39 Acetaminophen 325 Mg Tablet PO Q4H PRN Mild Pain (1-3) Al Hydrox/Mg Hydrox/Simethicone 30 ml 09/16/24 12:39 Mag Hydrox/Al Hydrox/Simeth 30 Ml Udc PO Q6H PRN Indigestion Aspirin 81 mg 09/17/24 08:00 Aspirin 81 Mg Chewable Tablet PO DAILY@0800 ROSALINDA Epoetin Brandon-epbx 10,000 units 09/17/24 18:56 Epoetin Brandon-Epbx 10,000 Units/Ml Vial IV PUSH 09/17/24 18:57 ONCE ONE Heparin Sodium (Porcine) 6,000 units 09/16/24 13:53 Heparin Sodium 5,000 Units/Ml Vial IV PUSH PRN PRN aPTT less than 55 seconds Heparin Sodium (Porcine) 3,000 units 09/16/24 13:53 Heparin Sodium 5,000 Units/Ml Vial IV PUSH PRN PRN aPTT 55 - 70 seconds Albumin Human 50 mls @ 999 mls/hr 09/16/24 11:49 Albutein IVPB 10/16/24 11:48 Q10M PRN HYPOTENSION Heparin Sodium/Dextrose 25,000 units in 250 mls @ 10 mls/hr 09/16/24 14:30 09/17/24 06:41 Heparin Sodium/D5w 100 Units/Ml IV CONT 1,000 units/hr .Q24H ROSALINDA 10 mls/hr Titration Protocol 1,000 UNITS/HR Levothyroxine Sodium 100 mcg 09/17/24 09:00 Levothyroxine Sodium 100 Mcg Tablet PO DAILY [facility] Morphine Sulfate 2 mg 09/16/24 09:08 Morphine Sulfate (*Crx) 2 Mg/Ml Inj IV PUSH Q2H PRN Pain Rated 7-10 Nifedipine 30 mg 09/17/24 09:00 Nifedipine 30 Mg Tab.Er.24 PO DAILY [facility] Nitroglycerin 0.4 mg 09/16/24 12:39 09/16/24 13:25 Nitroglycerin Sl 0.4 Mg Tablet SUBLINGUAL 0.4 mg Q5MIN PRN Administration Chest Pain Ondansetron HCl 4 mg 09/16/24 09:08 Ondansetron Inj 4 Mg/2 Ml Vial IV PUSH Q4H PRN Nausea Perflutren Lipid Microsphere 0 ml 09/16/24 13:50 Perflutren Lipid Microspheres 1.5 Ml Vial Diluted To 10 Ml Total Volume IV PUSH 09/19/24 13:50 ONCE PRN adequate visualization Protocol Rosuvastatin Calcium 5 mg 09/17/24 09:00 Rosuvastatin 5 Mg Tablet PO DAILY ROSALINDA Radiology Results: ITS Impressions Chest X-Ray 09/16/24 07:41 Impression: Normal chest. Labs Labs: Laboratory Results - last 24 hr 09/16/24 09/16/24 09/16/24 07:26 12:28 14:07 WBC 11.3 H RBC 2.88 L Hgb 9.0 L Hct 27.0 L MCV 93.8 MCH 31.3 MCHC 33.3 RDW 13.7 Plt Count 203 MPV 10.6 H Immature Gran % (Auto) 0.8 H Neut % (Auto) 87.5 H Lymph % (Auto) 6.4 L [place] % (Auto) 4.8 Eos % (Auto) 0.1 Baso % (Auto) 0.4 Lymph # (Auto) 0.72 L [place] # (Auto) 0.5 Eos # (Auto) 0.0 Baso # (Auto) 0.0 Abs Immat Gran (auto) 0.09 H Absolute Neuts (auto) 9.9 H Absolute Nucleated RBC 0.000 Nucleated RBC % 0.0 PT 15.8 H INR 1.3 APTT 33.3 Sodium Potassium Chloride Carbon Dioxide Anion Gap BUN Creatinine Estim Creat Clear Calc Estimated GFR Glucose Calcium Total Bilirubin AST ALT Alkaline Phosphatase Troponin I 0.670 H* D Total Protein Albumin Triglycerides Cholesterol LDL Cholesterol Direct HDL Direct Hep Bs Antigen Negative Hep Bs Antibody Negative 09/16/24 09/16/24 09/16/24 14:59 15:42 18:41 WBC RBC Hgb Hct MCV MCH MCHC RDW Plt Count MPV Immature Gran % (Auto) Neut % (Auto) Lymph % (Auto) [place] % (Auto) Eos % (Auto) Baso % (Auto) Lymph # (Auto) [place] # (Auto) Eos # (Auto) Baso # (Auto) Abs Immat Gran (auto) Absolute Neuts (auto) Absolute Nucleated RBC Nucleated RBC % PT INR APTT Sodium 135 L 138 Potassium 6.0 H* 3.1 L Chloride 104 102 Carbon Dioxide < 5 L 18 L Anion Gap 18 H BUN 171 H* 105 H* D Creatinine 19.89 H 11.83 H Estim Creat Clear Calc 3 5 Estimated GFR 2 L 4 L Glucose 91 118 H Calcium 7.1 L 7.4 L Total Bilirubin 0.4 0.5 AST 429 H 474 H ALT 408 H 403 H Alkaline Phosphatase 69 76 Troponin I 0.823 H* D 1.960 H* D Total Protein 6.0 L 5.8 L Albumin 3.4 L 3.2 L Triglycerides 261 H Cholesterol 86 LDL Cholesterol Direct 32 HDL Direct 15 Hep Bs Antigen Hep Bs Antibody 09/16/24 09/16/24 09/17/24 18:42 20:41 04:31 WBC 9.4 RBC 2.45 L Hgb 7.5 L Hct 22.2 L MCV 90.6 MCH 30.6 MCHC 33.8 RDW 13.7 Plt Count 184 MPV 10.9 H Immature Gran % (Auto) 0.5 Neut % (Auto) 82.9 H Lymph % (Auto) 7.7 L [place] % (Auto) 8.3 Eos % (Auto) 0.3 Baso % (Auto) 0.3 Lymph # (Auto) 0.72 L [place] # (Auto) 0.8 H Eos # (Auto) 0.0 Baso # (Auto) 0.0 Abs Immat Gran (auto) 0.05 H Absolute Neuts (auto) 7.8 H Absolute Nucleated RBC 0.000 Nucleated RBC % 0.0 PT INR APTT 190.7 H* 169.1 H* Sodium Cancelled 138 Potassium Cancelled 3.7 Chloride Cancelled 103 Carbon Dioxide Cancelled 18 L Anion Gap Cancelled 17 H BUN Cancelled 121 H* D Creatinine Cancelled 14.09 H Estim Creat Clear Calc Cancelled 4 Estimated GFR Cancelled 3 L Glucose Cancelled 102 Calcium Cancelled 6.9 L Total Bilirubin Cancelled 0.4 AST Cancelled 351 H ALT Cancelled 352 H Alkaline Phosphatase Cancelled 62 Troponin I Total Protein Cancelled 5.4 L Albumin Cancelled 2.9 L Triglycerides Cholesterol LDL Cholesterol Direct HDL Direct Hep Bs Antigen Hep Bs Antibody
[2024-09-17 10:26] LABS: Troponin I 5.050 ng/mL (0.000-0.034)
[2024-09-17] MEDS: EPOETIN ALFA-EPBX 10,000 UNITS/ML VIAL 10000 UNITS IV PUSH (11:24)
[2024-09-17] MEDS: SODIUM CHLORIDE 0.9% IV 1,000 ML 999 ML IV CONT (11:24)
--- NOTE | 2024-09-17 11:25 | P.PNNP_ITS ---
Progress Note: A&P Assessment and Plan (1) Acute kidney injury: Code(s): N17.9 - Acute kidney failure, unspecified Status: Acute Assessment and Plan: * etiology not clear * significant decline in renal function/creatinine noted by labs on admission * possibly due to hypotension +/- cardiac event * evaluation to date noted: * renal ultrasound in July 2024 was normal * unable to check urine studies since anuric * due to hyperkalemia, severe acidosis, and possible uremia, initiated on dialysis (09/16) * s/p temporary femoral line by Surgery * HD yesterday * HD today * follow trend of electrolytes, acidosis, and azotemia * follow trend of repeat labs and UOP to assess for potential recovery (2) Chronic kidney disease: Code(s): N18.9 - Chronic kidney disease, unspecified Status: Chronic Assessment and Plan: * specifics are not clear... * according to patient, last testing ~ 1 month ago noted his kidney function at 40% * last creatinine here in March 2024 was 1.28mg/dl * attempting to obtain records from primary chicken cleaner (Dr. Robert Shultz) regarding baseline kidney function and what evaluation has been done * records still pending (3) NSTEMI (non-ST elevated myocardial infarction): Code(s): I21.4 - Non-ST elevation (NSTEMI) myocardial infarction Status: Acute Assessment and Plan: * elevated troponins and admission EKG noted * on heparin gtt * Cardiology following * will likely need cardiac catheterization for further evaluation * continue medical management (4) Hyperkalemia: Code(s): E87.5 - Hyperkalemia Status: Acute Assessment and Plan: * resolved with AMBULATORY TECHNOLOGIST/dialysis * noted on admission * resistant to medical therapy with ER interventions * follow trend of K+ (5) Metabolic acidosis: Code(s): E87.20 - Acidosis, unspecified Status: Acute Assessment and Plan: * improvement noted with dialysis * presumably due to severity of ANNA MARIE * lactic acid normal (6) Anemia: Qualifiers: Anemia type: due to chronic kidney disease Chronic kidney disease stage: unspecified stage Qualified Code(s): N18.9 - Chronic kidney disease, unspecified; D63.1 - Anemia in chronic kidney disease Code(s): D64.9 - Anemia, unspecified Status: Acute Assessment and Plan: * presumably related to ANNA MARIE +/- CKD and acute illness * PRBC transfusion per protocol * Epogen with HD * check iron studies * follow trend of H/H (7) Hypertension: Code(s): I10 - Essential (primary) hypertension Status: Chronic Assessment and Plan: * somewhat on the soft side * follow trend of hemodynamics (8) Transaminitis: Code(s): R74.01 - Elevation of levels of liver transaminase levels Status: Acute Assessment and Plan: * as noted by admission labs * presumably due cardiac event and subsequent hypoperfusion (?) * follow trend Will continue to follow. Subjective Date/time seen: 09/17/24 11:25 Interval history: Follow-up for acute kidney injury/acute renal failure on chronic kidney disease. Tolerated dialysis treatment yesterday afternoon and tolerating treatment at the time of my visit (seen on HD at 11:10am); no further bouts of chest pain voiced; major complaint is that of profound fatigue; still not making much urine at this time. Exam Narrative: General: elderly but WD/WN male in NAD Heart: normal S1 and S2; no rub Lungs: clear to auscultation Abdomen: soft, nontender, nondistended, positive bowel sounds Extremities: no cyanosis or clubbing; no edema Skin: warm and dry Objective Data Vital Signs Vital Signs: Vital Signs Temp Pulse Resp BP Pulse Ox O2 Del Method FiO2 09/17/24 11:15 74 96/60 L 09/17/24 11:00 71 113/60 09/17/24 10:45 72 99/66 L 09/17/24 10:30 71 105/63 09/17/24 10:15 72 108/62 09/17/24 10:00 71 09/17/24 10:00 68 96/58 L 09/17/24 09:45 70 94/63 L 09/17/24 09:30 83 106/65 09/17/24 09:15 84 92/58 L 09/17/24 09:00 83 94/64 L 09/17/24 08:45 84 105/64 09/17/24 08:33 69 99/59 L 09/17/24 08:25 99.7 F H 70 16 94/56 L 97 09/17/24 08:00 69 09/17/24 08:00 98.0 F 71 20 97/52 L 99 09/17/24 06:00 85 09/17/24 04:00 84 09/17/24 03:36 98.1 F 70 16 123/58 L 99 09/17/24 02:00 87 09/17/24 00:00 73 09/16/24 23:59 98.2 F 74 16 119/55 L 99 09/16/24 22:17 97 20 92 Room Air 21 09/16/24 22:00 78 09/16/24 20:00 87 09/16/24 20:00 98.7 F 89 16 139/73 99 09/16/24 18:00 86 09/16/24 17:57 98.8 F 87 16 112/65 99 09/16/24 17:48 85 102/57 L 09/16/24 17:30 85 106/58 L 09/16/24 17:15 88 114/72 09/16/24 17:00 83 96/67 L 09/16/24 16:45 83 94/62 L 09/16/24 16:30 82 101/56 L Intake/Output Intake/Output: Intake & Output 09/14/24 09/15/24 09/16/24 09/17/24 23:59 23:59 23:59 23:59 Intake Total 1272.3 156.7 Output Total 0 0 Balance 1272.3 156.7 Meds/Results Medications: Active Medications Generic Name Dose Route Start Last Admin Trade Name Freq PRN Reason Stop Dose Admin Acetaminophen 650 mg 09/16/24 12:39 Acetaminophen 325 Mg Tablet PO Q4H PRN Mild Pain (1-3) Al Hydrox/Mg Hydrox/Simethicone 30 ml 09/16/24 12:39 Mag Hydrox/Al Hydrox/Simeth 30 Ml Udc PO Q6H PRN Indigestion Aspirin 81 mg 09/17/24 08:00 09/17/24 14:13 Aspirin 81 Mg Chewable Tablet PO 81 mg DAILY@0800 ROSALINDA Administration Epoetin Brandon-epbx 10,000 units 09/17/24 18:56 09/17/24 11:24 Epoetin Brandon-Epbx 10,000 Units/Ml Vial IV PUSH 09/17/24 18:57 10,000 units ONCE ONE Administration Heparin Sodium (Porcine) 6,000 units 09/16/24 13:53 Heparin Sodium 5,000 Units/Ml Vial IV PUSH PRN PRN aPTT less than 55 seconds Heparin Sodium (Porcine) 3,000 units 09/16/24 13:53 Heparin Sodium 5,000 Units/Ml Vial IV PUSH PRN PRN aPTT 55 - 70 seconds Albumin Human 50 mls @ 999 mls/hr 09/16/24 11:49 Albutein IVPB 10/16/24 11:48 Q10M PRN HYPOTENSION Heparin Sodium/Dextrose 25,000 units in 250 mls @ 8 mls/hr 09/16/24 14:30 09/17/24 15:12 Heparin Sodium/D5w 100 Units/Ml IV CONT 800 units/hr .Q24H ROSALINDA 8 mls/hr Administration Protocol 800 UNITS/HR Levothyroxine Sodium 100 mcg 09/17/24 09:00 09/17/24 12:08 Levothyroxine Sodium 100 Mcg Tablet PO 100 mcg DAILY [facility] Administration Morphine Sulfate 2 mg 09/16/24 09:08 Morphine Sulfate (*Crx) 2 Mg/Ml Inj IV PUSH Q2H PRN Pain Rated 7-10 Nifedipine 30 mg 09/17/24 09:00 09/17/24 12:11 Nifedipine 30 Mg Tab.Er.24 PO Not Given DAILY [facility] Nitroglycerin 0.4 mg 09/16/24 12:39 09/17/24 12:41 Nitroglycerin Sl 0.4 Mg Tablet SUBLINGUAL 0.4 mg Q5MIN PRN Administration Chest Pain Ondansetron HCl 4 mg 09/16/24 09:08 Ondansetron Inj 4 Mg/2 Ml Vial IV PUSH Q4H PRN Nausea Perflutren Lipid Microsphere 0 ml 09/16/24 13:50 Perflutren Lipid Microspheres 1.5 Ml Vial Diluted To 10 Ml Total Volume IV PUSH 09/19/24 13:50 ONCE PRN adequate visualization Protocol Rosuvastatin Calcium 5 mg 09/17/24 09:00 09/17/24 14:13 Rosuvastatin 5 Mg Tablet PO 5 mg DAILY ROSALINDA Administration Radiology Results: ITS Impressions Chest X-Ray 09/16/24 07:41 Impression: Normal chest. Labs Labs: Laboratory Tests 09/17/24 04:31 WBC 9.4 Hgb 7.5 L Hct 22.2 L Plt Count 184 Sodium 138 Potassium 3.7 Chloride 103 Carbon Dioxide 18 L Anion Gap 17 H BUN 121 H* D Creatinine 14.09 H Estim Creat Clear Calc 4 Estimated GFR 3 L Glucose 102 Calcium 6.9 L Total Bilirubin 0.4 AST 351 H ALT 352 H Alkaline Phosphatase 62 Total Protein 5.4 L Albumin 2.9 L
[2024-09-17 11:53] LABS: Hematocrit 22.8 % (42.0-52.0); Hemoglobin 7.9 g/dL (14.0-18.0)
[2024-09-17] MEDS: LEVOTHYROXINE SODIUM 100 MCG TABLET PO (12:08)
--- NOTE | 2024-09-17 12:40 | ECG_ITS ---
Test Date: 2024-09-17 12:51:05 Measurements Intervals [place] Rate: 87 P: 41 [place]: 182 QRS: 36 QRSD: 90 T: 86 QT: 402 QTc: 484 Interpretive Statements SINUS RHYTHM MODERATE ST DEPRESSION [0.05+ mV ST DEPRESSION] Compared to ECG 09/16/2024 18:24:12 ST (T wave) deviation now present Possible ischemia no longer present Electronically Signed On 09-17-2024 13:17:05 CDT by Lonnie Reyes M.D.
[2024-09-17] MEDS: NITROGLYCERIN SL 0.4 MG TABLET SUBLINGUAL (12:41)
[2024-09-17 13:26] LABS: Troponin I 4.270 ng/mL (0.000-0.034)
[2024-09-17 13:55] LABS: Anion Gap 11 mmol/L (4-12); Blood Urea Nitrogen 62 mg/dL (9-20); Calcium 7.6 mg/dL (8.4-10.2); Carbon Dioxide 24 mmol/L (22-30); Chloride 102 mmol/L (98-107); Estimated CRCL calculation 9 ml/min; Estimated Glomerular Filt Rate 8; Glucose 87 mg/dL (65-110); Potassium 3.5 mmol/L (3.4-5.0); Sodium 137 mmol/L (137-145)
[2024-09-17 14:00] LABS: Partial Thromboplastin Time 184.3 Seconds (22.3-36.8)
--- NOTE | 2024-09-17 14:07 | P.PNCA_ITS ---
Progress Note: A&P Assessment and Plan (1) NSTEMI (non-ST elevated myocardial infarction): Code(s): I21.4 - Non-ST elevation (NSTEMI) myocardial infarction Status: Acute Plan NSTEMI - ongoing chest pain; EKG SR with ST depressions Elevated BNP of 8710 ANNA MARIE with creatinine of 20 at presentation- started on dialysis with drop in creatinine to 7 Hyperkalemia with potassium of 6 at admission- decreased with dialysis Anemia with hemoglobin of 9.8 Plan: -Patient continues to have chest pain requiring PRN SL nitro. Unable to start a nitro drip due to soft BP. Troponin has peaked but given ongoing chest pain, will plan cardiac catheterization and possible PCI for today. I discussed with Dr. Daly, Nephrology. Patient will have HD tomorrow. Risks and benefits of cardiac catheterization discussed with patient and he is agreeable to proceed -P.r.n. sublingual nitro for chest pain -Continue aspirin 81mg p.o. daily -Not started on statin given elevated LFTs -Continue heparin drip -TTE to evaluate LVEF and any wall motion abnormalities Subjective Date/time seen: 09/17/24 14:07 Review of Systems Cardiovascular: Comments: As per HPI Respiratory: Comments: As per HPI Exam Narrative: General: Alert oriented x3, no acute distress Neck: Supple, no JVD Chest: Bilaterally clear to auscultation, no rales or rhonchi Cardiac: S1, S2 +, regular rate, regular rhythm, no murmurs or rubs Extremities: No pedal edema, no skin rash Neurologic: Alert and oriented x3, no focal neurological deficits Objective Data Vital Signs Vital Signs: Vital Signs - 24 hr 09/16/24 15:10 09/16/24 15:17 09/16/24 15:30 Temperature 36.4 C L Pulse Rate 76 76 75 Respiratory Rate 16 Blood Pressure 120/56 L 113/56 L 105/55 L Pulse Oximetry 100 Oxygen Delivery Fraction of Inspired Oxygen 09/16/24 15:45 09/16/24 16:00 09/16/24 16:00 Temperature Pulse Rate 82 71 84 Respiratory Rate Blood Pressure 102/62 101/60 Pulse Oximetry Oxygen Delivery Fraction of Inspired Oxygen 09/16/24 16:15 09/16/24 16:30 09/16/24 16:45 Temperature Pulse Rate 82 82 83 Respiratory Rate Blood Pressure 101/63 101/56 L 94/62 L Pulse Oximetry Oxygen Delivery Fraction of Inspired Oxygen 09/16/24 17:00 09/16/24 17:15 09/16/24 17:30 Temperature Pulse Rate 83 88 85 Respiratory Rate Blood Pressure 96/67 L 114/72 106/58 L Pulse Oximetry Oxygen Delivery Fraction of Inspired Oxygen 09/16/24 17:48 09/16/24 17:57 09/16/24 18:00 Temperature 37.1 C Pulse Rate 85 87 86 Respiratory Rate 16 Blood Pressure 102/57 L 112/65 Pulse Oximetry 99 Oxygen Delivery Fraction of Inspired Oxygen 09/16/24 20:00 09/16/24 20:00 09/16/24 22:00 Temperature 37.1 C Pulse Rate 89 87 78 Respiratory Rate 16 Blood Pressure 139/73 Pulse Oximetry 99 Oxygen Delivery Fraction of Inspired Oxygen 09/16/24 22:17 09/16/24 23:59 09/17/24 00:00 Temperature 36.8 C Pulse Rate 97 74 73 Respiratory Rate 20 16 Blood Pressure 119/55 L Pulse Oximetry 92 99 Oxygen Delivery Room Air Fraction of Inspired Oxygen 21 09/17/24 02:00 09/17/24 03:36 09/17/24 04:00 Temperature 36.7 C Pulse Rate 87 70 84 Respiratory Rate 16 Blood Pressure 123/58 L Pulse Oximetry 99 Oxygen Delivery Fraction of Inspired Oxygen 09/17/24 06:00 09/17/24 08:00 09/17/24 08:00 Temperature 36.7 C Pulse Rate 85 71 69 Respiratory Rate 20 Blood Pressure 97/52 L Pulse Oximetry 99 Oxygen Delivery Fraction of Inspired Oxygen 09/17/24 08:25 09/17/24 08:33 09/17/24 08:45 Temperature 37.6 C H Pulse Rate 70 69 84 Respiratory Rate 16 Blood Pressure 94/56 L 99/59 L 105/64 Pulse Oximetry 97 Oxygen Delivery Fraction of Inspired Oxygen 09/17/24 09:00 09/17/24 09:15 09/17/24 09:30 Temperature Pulse Rate 83 84 83 Respiratory Rate Blood Pressure 94/64 L 92/58 L 106/65 Pulse Oximetry Oxygen Delivery Fraction of Inspired Oxygen 09/17/24 09:45 09/17/24 10:00 09/17/24 10:00 Temperature Pulse Rate 70 68 71 Respiratory Rate Blood Pressure 94/63 L 96/58 L Pulse Oximetry Oxygen Delivery Fraction of Inspired Oxygen 09/17/24 10:15 09/17/24 10:30 09/17/24 10:45 Temperature Pulse Rate 72 71 72 Respiratory Rate Blood Pressure 108/62 105/63 99/66 L Pulse Oximetry Oxygen Delivery Fraction of Inspired Oxygen 09/17/24 11:00 09/17/24 11:15 09/17/24 11:34 Temperature Pulse Rate 71 74 79 Respiratory Rate Blood Pressure 113/60 96/60 L 111/64 Pulse Oximetry Oxygen Delivery Fraction of Inspired Oxygen 09/17/24 11:49 09/17/24 12:00 Temperature 36.6 C Pulse Rate 78 85 Respiratory Rate 16 Blood Pressure 91/64 L Pulse Oximetry 95 Oxygen Delivery Fraction of Inspired Oxygen Intake/Output Intake/Output: Intake & Output 09/14/24 09/15/24 09/16/24 09/17/24 23:59 23:59 23:59 23:59 Intake Total 1272.3 156.7 Output Total 0 0 Balance 1272.3 156.7 Meds/Results Medications: Active Medications Generic Name Dose Route Start Last Admin Trade Name Freq PRN Reason Stop Dose Admin Acetaminophen 650 mg 09/16/24 12:39 Acetaminophen 325 Mg Tablet PO Q4H PRN Mild Pain (1-3) Al Hydrox/Mg Hydrox/Simethicone 30 ml 09/16/24 12:39 Mag Hydrox/Al Hydrox/Simeth 30 Ml Udc PO Q6H PRN Indigestion Aspirin 81 mg 09/17/24 08:00 Aspirin 81 Mg Chewable Tablet PO DAILY@0800 [facility] Epoetin Brandon-epbx 10,000 units 09/17/24 18:56 09/17/24 11:24 Epoetin Brandon-Epbx 10,000 Units/Ml Vial IV PUSH 09/17/24 18:57 10,000 units ONCE ONE Administration Heparin Sodium (Porcine) 6,000 units 09/16/24 13:53 Heparin Sodium 5,000 Units/Ml Vial IV PUSH PRN PRN aPTT less than 55 seconds Heparin Sodium (Porcine) 3,000 units 09/16/24 13:53 Heparin Sodium 5,000 Units/Ml Vial IV PUSH PRN PRN aPTT 55 - 70 seconds Albumin Human 50 mls @ 999 mls/hr 09/16/24 11:49 Albutein IVPB 10/16/24 11:48 Q10M PRN HYPOTENSION Heparin Sodium/Dextrose 25,000 units in 250 mls @ 10 mls/hr 09/16/24 14:30 09/17/24 14:04 Heparin Sodium/D5w 100 Units/Ml IV CONT Infused .Q24H ROSALINDA Titration Protocol 1,000 UNITS/HR Levothyroxine Sodium 100 mcg 09/17/24 09:00 09/17/24 12:08 Levothyroxine Sodium 100 Mcg Tablet PO 100 mcg DAILY [facility] Administration Morphine Sulfate 2 mg 09/16/24 09:08 Morphine Sulfate (*Crx) 2 Mg/Ml Inj IV PUSH Q2H PRN Pain Rated 7-10 Nifedipine 30 mg 09/17/24 09:00 09/17/24 12:11 Nifedipine 30 Mg Tab.Er.24 PO Not Given DAILY [facility] Nitroglycerin 0.4 mg 09/16/24 12:39 09/17/24 12:41 Nitroglycerin Sl 0.4 Mg Tablet SUBLINGUAL 0.4 mg Q5MIN PRN Administration Chest Pain Ondansetron HCl 4 mg 09/16/24 09:08 Ondansetron Inj 4 Mg/2 Ml Vial IV PUSH Q4H PRN Nausea Perflutren Lipid Microsphere 0 ml 09/16/24 13:50 Perflutren Lipid Microspheres 1.5 Ml Vial Diluted To 10 Ml Total Volume IV PUSH 09/19/24 13:50 ONCE PRN adequate visualization Protocol Rosuvastatin Calcium 5 mg 09/17/24 09:00 Rosuvastatin 5 Mg Tablet PO DAILY [facility] Radiology Results: ITS Impressions Chest X-Ray 09/16/24 07:41 Impression: Normal chest. Labs Labs: Laboratory Results - last 24 hr 09/16/24 09/16/24 09/16/24 14:07 14:59 15:42 WBC 11.3 H RBC 2.88 L Hgb 9.0 L Hct 27.0 L MCV 93.8 MCH 31.3 MCHC 33.3 RDW 13.7 Plt Count 203 MPV 10.6 H Immature Gran % (Auto) 0.8 H Neut % (Auto) 87.5 H Lymph % (Auto) 6.4 L [place] % (Auto) 4.8 Eos % (Auto) 0.1 Baso % (Auto) 0.4 Lymph # (Auto) 0.72 L [place] # (Auto) 0.5 Eos # (Auto) 0.0 Baso # (Auto) 0.0 Abs Immat Gran (auto) 0.09 H Absolute Neuts (auto) 9.9 H Absolute Nucleated RBC 0.000 Nucleated RBC % 0.0 PT 15.8 H INR 1.3 APTT 33.3 Sodium 135 L Potassium 6.0 H* Chloride 104 Carbon Dioxide < 5 L Anion Gap BUN 171 H* Creatinine 19.89 H Estim Creat Clear Calc 3 Estimated GFR 2 L Glucose 91 Calcium 7.1 L Total Bilirubin 0.4 AST 429 H ALT 408 H Alkaline Phosphatase 69 Troponin I 0.823 H* D Total Protein 6.0 L Albumin 3.4 L Triglycerides 261 H Cholesterol 86 LDL Cholesterol Direct 32 HDL Direct 15 09/16/24 09/16/24 09/16/24 18:41 18:42 20:41 WBC RBC Hgb Hct MCV MCH MCHC RDW Plt Count MPV Immature Gran % (Auto) Neut % (Auto) Lymph % (Auto) [place] % (Auto) Eos % (Auto) Baso % (Auto) Lymph # (Auto) [place] # (Auto) Eos # (Auto) Baso # (Auto) Abs Immat Gran (auto) Absolute Neuts (auto) Absolute Nucleated RBC Nucleated RBC % PT INR APTT 190.7 H* Sodium 138 Cancelled Potassium 3.1 L Cancelled Chloride 102 Cancelled Carbon Dioxide 18 L Cancelled Anion Gap 18 H Cancelled BUN 105 H* D Cancelled Creatinine 11.83 H Cancelled Estim Creat Clear Calc 5 Cancelled Estimated GFR 4 L Cancelled Glucose 118 H Cancelled Calcium 7.4 L Cancelled Total Bilirubin 0.5 Cancelled AST 474 H Cancelled ALT 403 H Cancelled Alkaline Phosphatase 76 Cancelled Troponin I 1.960 H* D Total Protein 5.8 L Cancelled Albumin 3.2 L Cancelled Triglycerides Cholesterol LDL Cholesterol Direct HDL Direct 09/17/24 09/17/24 09/17/24 04:31 09:09 11:44 WBC 9.4 RBC 2.45 L Hgb 7.5 L 7.9 L Hct 22.2 L 22.8 L MCV 90.6 MCH 30.6 MCHC 33.8 RDW 13.7 Plt Count 184 MPV 10.9 H Immature Gran % (Auto) 0.5 Neut % (Auto) 82.9 H Lymph % (Auto) 7.7 L [place] % (Auto) 8.3 Eos % (Auto) 0.3 Baso % (Auto) 0.3 Lymph # (Auto) 0.72 L [place] # (Auto) 0.8 H Eos # (Auto) 0.0 Baso # (Auto) 0.0 Abs Immat Gran (auto) 0.05 H Absolute Neuts (auto) 7.8 H Absolute Nucleated RBC 0.000 Nucleated RBC % 0.0 PT INR APTT 169.1 H* Sodium 138 Potassium 3.7 Chloride 103 Carbon Dioxide 18 L Anion Gap 17 H BUN 121 H* D Creatinine 14.09 H Estim Creat Clear Calc 4 Estimated GFR 3 L Glucose 102 Calcium 6.9 L Total Bilirubin 0.4 AST 351 H ALT 352 H Alkaline Phosphatase 62 Troponin I 5.050 H* Total Protein 5.4 L Albumin 2.9 L Triglycerides Cholesterol LDL Cholesterol Direct HDL Direct 09/17/24 12:37 WBC RBC Hgb Hct MCV MCH MCHC RDW Plt Count MPV Immature Gran % (Auto) Neut % (Auto) Lymph % (Auto) [place] % (Auto) Eos % (Auto) Baso % (Auto) Lymph # (Auto) [place] # (Auto) Eos # (Auto) Baso # (Auto) Abs Immat Gran (auto) Absolute Neuts (auto) Absolute Nucleated RBC Nucleated RBC % PT INR APTT 184.3 H* Sodium 137 Potassium 3.5 Chloride 102 Carbon Dioxide 24 Anion Gap 11 BUN 62 H D Creatinine 7.03 H Estim Creat Clear Calc 9 Estimated GFR 8 L Glucose 87 Calcium 7.6 L Total Bilirubin AST ALT Alkaline Phosphatase Troponin I 4.270 H* Total Protein Albumin Triglycerides Cholesterol LDL Cholesterol Direct HDL Direct
[2024-09-17] MEDS: ROSUVASTATIN 5 MG TABLET PO (14:13)
[2024-09-17] MEDS: ASPIRIN 81 MG CHEWABLE TABLET PO (14:13)
[2024-09-17] MEDS: HEPARIN SOD/D5W 100 UNITS/ML 25,000 UNITS/250 ML BAG 8 UNITS IV CONT (15:12)
--- NOTE | 2024-09-17 16:09 | WPDHPUPDATE1 ---
History and Physical Update Update Date/Time: 09/17/24 16:09 History and Physical has been reviewed, including an updated exam of the patient. There are following changes in the patient's condition: Patient had HD with decrease in creatinine from 20 to 7. He has ongoing chest pain that is relieved with SL nitro prn. Discussed with his plant and machinery valuer who informed that patient will undergo HD tomorrow morning. Given elevated troponin to 5, multiple episodes of chest pain since yesterday requiring SL nitro, plan is to proceed with cardiac catheterization. Risks, benefits, and alternatives have been discussed and questions answered. Patient agrees to proceed with procedure.
--- NOTE | 2024-09-17 16:11 | WPDMODSED ---
Moderate Sedation Note-Pt Data Patient Data Allergies Allergy/AdvReac Type Severity Reaction Status Date / Time No Known Allergies Allergy Verified 05/28/22 07:46 Home Medications ?Medication ?Instructions ?Recorded ?Confirmed ?Type ascorbic acid (vitamin C) 500 mg 500 mg PO DAILY 02/06/20 09/16/24 History tablet folic acid 1 mg tablet 1 mg PO DAILY 02/06/20 09/16/24 History levothyroxine 100 mcg tablet 100 mcg PO DAILY 02/06/20 09/16/24 History (Synthroid) rosuvastatin 5 mg tablet 5 mg PO DAILY 05/22/22 09/16/24 History nifedipine 30 mg tablet,extended 30 mg PO DAILY 09/16/24 09/16/24 History release 24 hr Current Medications: Active Medications Acetaminophen (Acetaminophen 325 Mg Tablet) 650 mg PO Q4H PRN PRN Reason: Mild Pain (1-3) Al Hydrox/Mg Hydrox/Simethicone (Mag Hydrox/Al Hydrox/Simeth 30 Ml Udc) 30 ml PO Q6H PRN PRN Reason: Indigestion Aspirin (Aspirin 81 Mg Chewable Tablet) 81 mg PO DAILY@0800 [facility] Last Admin: 09/17/24 14:13 Dose: 81 mg Epoetin Brandon-epbx (Epoetin Brandon-Epbx 10,000 Units/Ml Vial) 10,000 units IV PUSH ONCE ONE Stop: 09/17/24 18:57 Last Admin: 09/17/24 11:24 Dose: 10,000 units Heparin Sodium (Porcine) (Heparin Sodium 5,000 Units/Ml Vial) 6,000 units IV PUSH PRN PRN PRN Reason: aPTT less than 55 seconds Heparin Sodium (Porcine) (Heparin Sodium 5,000 Units/Ml Vial) 3,000 units IV PUSH PRN PRN PRN Reason: aPTT 55 - 70 seconds Albumin Human (Albutein) 50 mls @ 999 mls/hr IVPB Q10M PRN PRN Reason: HYPOTENSION Stop: 10/16/24 11:48 Heparin Sodium/Dextrose (Heparin Sodium/D5w 100 Units/Ml) 25,000 units in 250 mls @ 8 mls/hr IV CONT .Q24H ROSALINDA; Protocol Last Admin: 09/17/24 15:12 Dose: 800 units/hr, 8 mls/hr Levothyroxine Sodium (Levothyroxine Sodium 100 Mcg Tablet) 100 mcg PO DAILY [facility] Last Admin: 09/17/24 12:08 Dose: 100 mcg Morphine Sulfate (Morphine Sulfate (*Crx) 2 Mg/Ml Inj) 2 mg IV PUSH Q2H PRN PRN Reason: Pain Rated 7-10 Nifedipine (Nifedipine 30 Mg Tab.Er.24) 30 mg PO DAILY [facility] Last Admin: 09/17/24 12:11 Dose: Not Given Nitroglycerin (Nitroglycerin Sl 0.4 Mg Tablet) 0.4 mg SUBLINGUAL Q5MIN PRN PRN Reason: Chest Pain Last Admin: 09/17/24 12:41 Dose: 0.4 mg Ondansetron HCl (Ondansetron Inj 4 Mg/2 Ml Vial) 4 mg IV PUSH Q4H PRN PRN Reason: Nausea Perflutren Lipid Microsphere (Perflutren Lipid Microspheres 1.5 Ml Vial Diluted To 10 Ml Total Volume) 0 ml IV PUSH ONCE PRN; Protocol PRN Reason: adequate visualization Stop: 09/19/24 13:50 Rosuvastatin Calcium (Rosuvastatin 5 Mg Tablet) 5 mg PO DAILY [facility] Last Admin: 09/17/24 14:13 Dose: 5 mg Sedation/Anesthesia: No previous sedation/anesthesia problems (including family history). [facility] Past Medical History Medical History (Updated 09/17/24 @ 14:08 by Dinah Stallings MD) History of right common carotid artery stent placement Coronary artery disease Adenomatous colon polyp Hypertension Surgical History Surgical History History of percutaneous coronary intervention Social History Social History Smoking packs per day: 2 Smoking cigarettes per day: 40.0 Years smoked: 50 Smoking pack-years: 100.00 Smoking status: Former smoker Tobacco type: cigarettes Second hand tobacco smoke exposure: Yes Smoking end date: 09/06/13 Alcohol intake: current Drinks per week: 2 Alcohol use details: BEERS Substance use: never Substance use type: does not use Do You Feel Safe in your Home?: Yes Lack of Transportation: No Lack of Food: Never True Current Housing: I Have Housing Concerned About Future Housing: No Difficulty Paying Gas/Electric Bills: No Difficulty Paying for Meds: No Currently Unemployed: No Education: High School Diploma/GED Difficulty w/ Childcare or Family Care: No Living arrangements: with family Gender identity (if verbalized by the patient): Male Spiritual care concerns: No Mod Sed Physical Exam Physical Exam Pre Procedural Exam: Normal: Lungs, Heart Rate and Heart Rhythm Hours since solid foods: 12 Hours since liquid intake: 12 Mallampati Classification: class II Internal Medicine - PN: Obj Da Vital Signs Vital Signs: Vital Signs - 24 hr 09/16/24 16:15 09/16/24 16:30 09/16/24 16:45 Temperature Pulse Rate 82 82 83 Respiratory Rate Blood Pressure 101/63 101/56 L 94/62 L Pulse Oximetry Oxygen Delivery Fraction of Inspired Oxygen 09/16/24 17:00 09/16/24 17:15 09/16/24 17:30 Temperature Pulse Rate 83 88 85 Respiratory Rate Blood Pressure 96/67 L 114/72 106/58 L Pulse Oximetry Oxygen Delivery Fraction of Inspired Oxygen 09/16/24 17:48 09/16/24 17:57 09/16/24 18:00 Temperature 37.1 C Pulse Rate 85 87 86 Respiratory Rate 16 Blood Pressure 102/57 L 112/65 Pulse Oximetry 99 Oxygen Delivery Fraction of Inspired Oxygen 09/16/24 20:00 09/16/24 20:00 09/16/24 22:00 Temperature 37.1 C Pulse Rate 89 87 78 Respiratory Rate 16 Blood Pressure 139/73 Pulse Oximetry 99 Oxygen Delivery Fraction of Inspired Oxygen 09/16/24 22:17 09/16/24 23:59 09/17/24 00:00 Temperature 36.8 C Pulse Rate 97 74 73 Respiratory Rate 20 16 Blood Pressure 119/55 L Pulse Oximetry 92 99 Oxygen Delivery Room Air Fraction of Inspired Oxygen 21 09/17/24 02:00 09/17/24 03:36 09/17/24 04:00 Temperature 36.7 C Pulse Rate 87 70 84 Respiratory Rate 16 Blood Pressure 123/58 L Pulse Oximetry 99 Oxygen Delivery Fraction of Inspired Oxygen 09/17/24 06:00 09/17/24 08:00 09/17/24 08:00 Temperature 36.7 C Pulse Rate 85 71 69 Respiratory Rate 20 Blood Pressure 97/52 L Pulse Oximetry 99 Oxygen Delivery Fraction of Inspired Oxygen 09/17/24 08:25 09/17/24 08:33 09/17/24 08:45 Temperature 37.6 C H Pulse Rate 70 69 84 Respiratory Rate 16 Blood Pressure 94/56 L 99/59 L 105/64 Pulse Oximetry 97 Oxygen Delivery Fraction of Inspired Oxygen 09/17/24 09:00 09/17/24 09:15 09/17/24 09:30 Temperature Pulse Rate 83 84 83 Respiratory Rate Blood Pressure 94/64 L 92/58 L 106/65 Pulse Oximetry Oxygen Delivery Fraction of Inspired Oxygen 09/17/24 09:45 09/17/24 10:00 09/17/24 10:00 Temperature Pulse Rate 70 68 71 Respiratory Rate Blood Pressure 94/63 L 96/58 L Pulse Oximetry Oxygen Delivery Fraction of Inspired Oxygen 09/17/24 10:15 09/17/24 10:30 09/17/24 10:45 Temperature Pulse Rate 72 71 72 Respiratory Rate Blood Pressure 108/62 105/63 99/66 L Pulse Oximetry Oxygen Delivery Fraction of Inspired Oxygen 09/17/24 11:00 09/17/24 11:15 09/17/24 11:34 Temperature Pulse Rate 71 74 79 Respiratory Rate Blood Pressure 113/60 96/60 L 111/64 Pulse Oximetry Oxygen Delivery Fraction of Inspired Oxygen 09/17/24 11:49 09/17/24 12:00 09/17/24 14:00 Temperature 36.6 C Pulse Rate 78 85 84 Respiratory Rate 16 Blood Pressure 91/64 L Pulse Oximetry 95 Oxygen Delivery Fraction of Inspired Oxygen 09/17/24 16:00 Temperature 36.8 C Pulse Rate 86 Respiratory Rate 18 Blood Pressure 94/58 L Pulse Oximetry 97 Oxygen Delivery Fraction of Inspired Oxygen Intake/Output Intake/Output: Intake & Output 09/14/24 09/15/24 09/16/24 09/17/24 23:59 23:59 23:59 23:59 Intake Total 1272.3 156.7 Output Total 0 0 Balance 1272.3 156.7 Meds/Results Medications: Active Medications Generic Name Dose Route Start Last Admin Trade Name Freq PRN Reason Stop Dose Admin Acetaminophen 650 mg 09/16/24 12:39 Acetaminophen 325 Mg Tablet PO Q4H PRN Mild Pain (1-3) Al Hydrox/Mg Hydrox/Simethicone 30 ml 09/16/24 12:39 Mag Hydrox/Al Hydrox/Simeth 30 Ml Udc PO Q6H PRN Indigestion Aspirin 81 mg 09/17/24 08:00 09/17/24 14:13 Aspirin 81 Mg Chewable Tablet PO 81 mg DAILY@0800 ROSALINDA Administration Epoetin Brandon-epbx 10,000 units 09/17/24 18:56 09/17/24 11:24 Epoetin Brandon-Epbx 10,000 Units/Ml Vial IV PUSH 09/17/24 18:57 10,000 units ONCE ONE Administration Heparin Sodium (Porcine) 6,000 units 09/16/24 13:53 Heparin Sodium 5,000 Units/Ml Vial IV PUSH PRN PRN aPTT less than 55 seconds Heparin Sodium (Porcine) 3,000 units 09/16/24 13:53 Heparin Sodium 5,000 Units/Ml Vial IV PUSH PRN PRN aPTT 55 - 70 seconds Albumin Human 50 mls @ 999 mls/hr 09/16/24 11:49 Albutein IVPB 10/16/24 11:48 Q10M PRN HYPOTENSION Heparin Sodium/Dextrose 25,000 units in 250 mls @ 8 mls/hr 09/16/24 14:30 09/17/24 15:12 Heparin Sodium/D5w 100 Units/Ml IV CONT 800 units/hr .Q24H ROSALINDA 8 mls/hr Administration Protocol 800 UNITS/HR Levothyroxine Sodium 100 mcg 09/17/24 09:00 09/17/24 12:08 Levothyroxine Sodium 100 Mcg Tablet PO 100 mcg DAILY [facility] Administration Morphine Sulfate 2 mg 09/16/24 09:08 Morphine Sulfate (*Crx) 2 Mg/Ml Inj IV PUSH Q2H PRN Pain Rated 7-10 Nifedipine 30 mg 09/17/24 09:00 09/17/24 12:11 Nifedipine 30 Mg Tab.Er.24 PO Not Given DAILY [facility] Nitroglycerin 0.4 mg 09/16/24 12:39 09/17/24 12:41 Nitroglycerin Sl 0.4 Mg Tablet SUBLINGUAL 0.4 mg Q5MIN PRN Administration Chest Pain Ondansetron HCl 4 mg 09/16/24 09:08 Ondansetron Inj 4 Mg/2 Ml Vial IV PUSH Q4H PRN Nausea Perflutren Lipid Microsphere 0 ml 09/16/24 13:50 Perflutren Lipid Microspheres 1.5 Ml Vial Diluted To 10 Ml Total Volume IV PUSH 09/19/24 13:50 ONCE PRN adequate visualization Protocol Rosuvastatin Calcium 5 mg 09/17/24 09:00 09/17/24 14:13 Rosuvastatin 5 Mg Tablet PO 5 mg DAILY ROSALINDA Administration Radiology Results: ITS Impressions Chest X-Ray 09/16/24 07:41 Impression: Normal chest. Labs 09/17/24 11:44 09/17/24 12:37 Labs: Laboratory Results - last 24 hr 09/16/24 09/16/24 09/16/24 15:42 18:41 18:42 WBC RBC Hgb Hct MCV MCH MCHC RDW Plt Count MPV Immature Gran % (Auto) Neut % (Auto) Lymph % (Auto) [place] % (Auto) Eos % (Auto) Baso % (Auto) Lymph # (Auto) [place] # (Auto) Eos # (Auto) Baso # (Auto) Abs Immat Gran (auto) Absolute Neuts (auto) Absolute Nucleated RBC Nucleated RBC % APTT Sodium 138 Cancelled Potassium 3.1 L Cancelled Chloride 102 Cancelled Carbon Dioxide 18 L Cancelled Anion Gap 18 H Cancelled BUN 105 H* D Cancelled Creatinine 11.83 H Cancelled Estim Creat Clear Calc 5 Cancelled Estimated GFR 4 L Cancelled Glucose 118 H Cancelled Calcium 7.4 L Cancelled Total Bilirubin 0.5 Cancelled AST 474 H Cancelled ALT 403 H Cancelled Alkaline Phosphatase 76 Cancelled Troponin I 1.960 H* D Total Protein 5.8 L Cancelled Albumin 3.2 L Cancelled LDL Cholesterol Direct 32 09/16/24 09/17/24 09/17/24 20:41 04:31 09:09 WBC 9.4 RBC 2.45 L Hgb 7.5 L Hct 22.2 L MCV 90.6 MCH 30.6 MCHC 33.8 RDW 13.7 Plt Count 184 MPV 10.9 H Immature Gran % (Auto) 0.5 Neut % (Auto) 82.9 H Lymph % (Auto) 7.7 L [place] % (Auto) 8.3 Eos % (Auto) 0.3 Baso % (Auto) 0.3 Lymph # (Auto) 0.72 L [place] # (Auto) 0.8 H Eos # (Auto) 0.0 Baso # (Auto) 0.0 Abs Immat Gran (auto) 0.05 H Absolute Neuts (auto) 7.8 H Absolute Nucleated RBC 0.000 Nucleated RBC % 0.0 APTT 190.7 H* 169.1 H* Sodium 138 Potassium 3.7 Chloride 103 Carbon Dioxide 18 L Anion Gap 17 H BUN 121 H* D Creatinine 14.09 H Estim Creat Clear Calc 4 Estimated GFR 3 L Glucose 102 Calcium 6.9 L Total Bilirubin 0.4 AST 351 H ALT 352 H Alkaline Phosphatase 62 Troponin I 5.050 H* Total Protein 5.4 L Albumin 2.9 L LDL Cholesterol Direct 09/17/24 09/17/24 11:44 12:37 WBC RBC Hgb 7.9 L Hct 22.8 L MCV MCH MCHC RDW Plt Count MPV Immature Gran % (Auto) Neut % (Auto) Lymph % (Auto) [place] % (Auto) Eos % (Auto) Baso % (Auto) Lymph # (Auto) [place] # (Auto) Eos # (Auto) Baso # (Auto) Abs Immat Gran (auto) Absolute Neuts (auto) Absolute Nucleated RBC Nucleated RBC % APTT 184.3 H* Sodium 137 Potassium 3.5 Chloride 102 Carbon Dioxide 24 Anion Gap 11 BUN 62 H D Creatinine 7.03 H Estim Creat Clear Calc 9 Estimated GFR 8 L Glucose 87 Calcium 7.6 L Total Bilirubin AST ALT Alkaline Phosphatase Troponin I 4.270 H* Total Protein Albumin LDL Cholesterol Direct ASA Classification/Sedation ASA Classification/Sedation ASA Class: III Emergent: No Risks: Risks, benefits and alternatives explained and patient/family accepted plan for sedation. Patient re-evaluated immediately prior to sedation.
--- NOTE | 2024-09-17 16:12 | P.PCNCC_ITS ---
Cardiac Cath Procedure Note Date of procedure:: 09/17/24 Performing physician:: Dinah Stallings MD Indication:: CATHETERIZATION LABORATORY REPORT Procedure Date: 09/17/24 Anesthesia: Versed and Fentanyl were ordered and given in my presence at 4:48 p.m., procedure ended at 6:48 p.m.. Supervision of nurse monitored moderate sedation with Versed and Fentanyl was provided for 120 minutes. Dose of fentanyl: 100 mcg Dose of Versed: 1.5 mg Pre-op Diagnosis: NSTEMI- ongoing chest pain, troponin up to 5 ANNA MARIE requiring HD Post-op Diagnosis: NSTEMI status post successful IVUS guided PCI to 99% InStent restenoses of ostial LCX (culprit for patient's presentation) with 3.5 mm X 18 mm Medtronic bee [place] JES[place]S followed by post-dilation with a 3.5 mm X 15 mm NC balloon, KBI with 3.5 mm X 15 mm NC balloon in LCX and 3.5 mm X 15 mm NC balloon in LAD, and final POT with 4.0 mm X 15 mm NC balloon balloon Procedure(s): Left heart catheterization with coronary angiography S IBS guided PCI to 99% InStent restenosis of ostial LCX Access Site: Right radial artery Brief History and Clinical Indications: All risks, benefits and alternatives to left heart catheterization with or without percutaneous coronary intervention was discussed at length with the patient. Risk of complications including but not limited to bleeding, infection, arrhythmia, stroke, worsening kidney function, blood loss, groin hematoma, limb loss, emergency coronary artery bypass grafting, and even were discussed with the patient and all questions were answered. The patient understood and wished to proceed. 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 Findings: LEFT HEART CATHETERIZATION FINDINGS: 1. Left main: The left main coronary artery is widely patent without any significant obstructive disease. Prior stent in left main from 03/2024 is widely patent. 2. Left anterior descending: The LAD and the diagonal branches have mild luminal irregularities without any significant obstructive angiographic disease. Prior stent in the proximal LAD from 03/2024 is widely patent. 3. Left circumflex: There is 99% InStent restenoses (stent was placed in 03/2024) of ostial LCX. There is 60% calcified stenosis in mid LCX. Distal LCX is very tiny and diffusely diseased. OM branches have minor luminal irregula rities. Following initial diagnostic image of the left system the flow in LCX decreased from RHODA 3 to RHODA 1 due to significant ostial LCX stenosis. 4. Right coronary artery: The proximal RCA has 30% stenosis. Right dominant circulation. The distal RCA, RPDA, and RPLA appear diffusely thready without any focal stenosis due to spasm. Did not administer nitro due to hypotension. 5. Left ventricle: A. End-diastolic pressure 16 mmHg. B. LV gram deferred. C. No significant gradient across aortic valve on catheter pullback. 6. Opening AO pressure 88/45/64 mm Hg and closing AO pressure 121/45/60 5 mm Hg. Description of Procedure: Informed consent signed and placed in the chart. Patient transferred to animal laboratory technician room. Prepped and draped in usual sterile fashion. 2% lidocaine injected subcutaneously in right wrist area. 22-gauge venipuncture catheter used to access the right radial artery with the Seldinger technique. 6-FR slender sheath placed in right radial artery. Nitroglycerin 100mcg, and Heparin 5000U was given intraarterial through the sheath. J wire advanced under fluoroscopy Five [place] JR4 diagnostic catheter engaged Left Main Coronary Artery. 5 [place] JL 3.5 diagnostic catheter engaged Right Coronary Artery Multiple orthogonal angiogram obtained and reviewed 5 [place] JR4 diagnostic catheter crossed aortic valve to obtain LVEDP, LV angiogram deferred. Hemostasis was achieved by application of TR band. Procedure Description for PCI: Heparin was used for anticoagulation (ACT maintained above 250) Patient loaded with heparin at 70 units/kg. After the 1st diagnostic cine of left system with a JL 3.5 diagnostic catheter the ostial LCX stenosis worsened and there was RHODA 1 flow in the LCX. Patient developed chest pain and hypotension. 5 mL of IV normal saline fluid bolus, 100 mcg of Kyrie-Synephrine were administered, and Levophed drip was started at 5 microgram/kg per minute. After blood pressure stabilizes we proceeded with PCI to the ostial LCX. A 6 [place] EBU 3.5 guide catheter was used to intubate the left main. 0.014 runthrough coronary wire was passed in to the distal LCX and a 2nd 0.014 in run-through coronary wire was passed into the distal LAD. The ostial LCX lesion was pre-dilated with a 2.0 mm X 15 mm and 3.0 mm X 20 mm compliant balloons inflated to high GEORGE. IVUS was performed to evaluate vessel size and lesion characteristics. A 3.5 mm mm x 18 mm Medtronic bee [place]ES[place] was successfully deployed into ostial LCX in T and protrusion fashion. The stent was post-dilated with a 3.5 mm X 15 mm NC balloon inflated to high high GEORGE. This was followed by kissing balloon inflation with 3.5 mm X 15 mm NC balloon in LCX and 3.5 mm X 15 mm NC balloon in LAD, and final POT with 4.0 mm X 15 mm NC balloon balloon in left main. Follow-up angiograms showed an excellent result. Coronary wires and guide-catheter were removed Pre-procedure - RHODA 3 flow Post-procedure - RHODA 3 flow No angiographic complications identified. Assessment: -NSTEMI status post successful IVUS guided PCI to 99% InStent restenoses of ostial LCX (culprit for patient's presentation) with 3.5 mm X 18 mm Medtronic bee [place] followed by post-dilation with a 3.5 mm X 15 mm NC balloon, KBI with 3.5 mm X 15 mm NC balloon in LCX and 3.5 mm X 15 mm NC balloon in LAD, and final POT with 4.0 mm X 15 mm NC balloon balloon -Cardiogenic shock requiring IV fluid bolus, 100 mcg of Kyrie-Synephrine IV, and Levophed drip at 5 mcg per kg per minute. Blood pressure at end of case was 110s systolic on 5 microgram/kg per minute of Levophed -Anemia secondary to kidney disease with hemoglobin less than 8 before beginning of the case Post Operative Condition: Stable No significant blood loss Disposition: Floor Plan: Patient had InStent restenosis of ostial LCX stent that was placed in March 2024. He is at high risk of recurrent ISR. Recommend DAPT for 1 year and if he tolerates then continue for longer duration due to high risk of recurrent ISR. Aspirin 81 mg daily indefinitely. Ticagrelor 180 mg 1 dose now followed by 90 mg b.i.d. starting tomorrow for 1 year. Patient will be transferred to the ICU. Wean Levophed keeping maps greater than 60. TR band removal per protocol. Continue IV fluids normal saline at 100 mL/hour 1 L. Given anemia recommend 1 unit of PRBCs. Keep hemoglobin greater than 8. Check H&H tomorrow. Check renal function in a.m.. Per Nephrology patient will get dialysis tomorrow. Continue aggressive medical therapy and risk factor modification. Cardiac rehab at 1 month.
--- NOTE | 2024-09-17 17:47 | P.PNIM_ITS ---
Progress Note: A&P Assessment and Plan (1) Hypertension: Code(s): I10 - Essential (primary) hypertension Status: Acute (2) Coronary artery disease: Code(s): I25.10 - Atherosclerotic heart disease of [place] coronary artery without angina pectoris Status: Acute (3) NSTEMI (non-ST elevated myocardial infarction): Code(s): I21.4 - Non-ST elevation (NSTEMI) myocardial infarction Status: Acute (4) History of right common carotid artery stent placement: Code(s): Z98.890 - Other specified postprocedural states; Z95.828 - Presence of other vascular implants and grafts Status: Acute (5) Hyperkalemia: Code(s): E87.5 - Hyperkalemia Status: Acute (6) Acute uremia: Code(s): N19 - Unspecified kidney failure Status: Acute (7) Acute kidney injury: Code(s): N17.9 - Acute kidney failure, unspecified Status: Acute (8) Chronic kidney disease: Code(s): N18.9 - Chronic kidney disease, unspecified Status: Chronic (9) Anemia: Code(s): D64.9 - Anemia, unspecified Status: Acute Plan 73-year-old male with complex history including coronary artery disease status post 2 stents in 2024 at [facility] per the patient, carotid stenosis status post right common carotid artery stent placement [facility] 2024, hypertension, hypertension, CKD. 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 Robert Shultz, unknown CKD baseline. Reportedly the p atient was diagnosed with renal failure 2 weeks prior to admission. He has also had concurrent loss of appetite, weakness and fatigue along with muscle cramps in lower extremities. He presents to [facility] 09/[facility]24 with chest pain. He describes it as sharp however sometimes tight. In the ER he received nitroglycerin which improved his pain. Denied palpitations shortness of breath or cough. Unfortunately on presentation he was in severe renal failure with hyperkalemia and a BNP of 8710 with elevated troponin at 0.2. EKG did not demonstrate ST elevations. Nephrology consulted. Unclear etiology for the acute kidney failure however a left-sided femoral vein Yuriy catheter was placed any received dialysis on 09/16 and 09/17. Hemoglobin in 2023 10.6, 12.1 in March of 2024, on admission 9.8 dropping to 7.5 on 09/17/2024. No hemoptysis or melena/hematochezia however nursing staff noted he was exsanguinating around the insertion site of the femoral catheter. Pressure dressing was applied and repeat hemoglobin 7.9. Troponin peaked at 5.05 on 09/17 at 9:00 a.m. repeat at noon coming down to 4.2. As of the writing of this progress note the patient has been taken to cardiac catheterization lab with Dr. Stallings, and he has been on heparin drip shins admission. Has been receiving statin and aspirin daily. Will have to watch his LFTs closely in the setting of statin administration. Will continue to manage with Nephrology, General surgery, Cardiology. He remains in guarded condition. Full code. Saline lock IV. Heparin GTT. Continue daily CBC, CMP, magnesium. Subjective Date/time seen: 09/17/24 17:47 Interval history: After dialysis patient had chest tightness 08/18. Resolved after nitroglycerin administration. 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 He had no other complaints prior. Review of Systems Review of Systems: All systems reviewed & are unremarkable except as noted in HPI and below (Subjective) Exam Const: General: comfortable and no acute distress HENMT: Mouth: Yes moist mucous membranes Eyes: Pupils: Equal, round and reactive pupils present Neck: Neck: supple Resp: Effort & Inspection: normal respiratory effort Auscultation: clear to auscultation bilaterally Cardio: Rate: regular rate Rhythm: regular rhythm GI: GI Palp: Yes Soft to palpation and No Tenderness to palpation present (GI) Extrem: General: no edema Objective Data Vital Signs Vital Signs: Vital Signs - 24 hr 09/16/24 17:48 09/16/24 17:57 09/16/24 18:00 Temperature 98.8 F Pulse Rate 85 87 86 Respiratory Rate 16 Blood Pressure 102/57 L 112/65 Pulse Oximetry 99 Oxygen Delivery Fraction of Inspired Oxygen 09/16/24 20:00 09/16/24 20:00 09/16/24 22:00 Temperature 98.7 F Pulse Rate 89 87 78 Respiratory Rate 16 Blood Pressure 139/73 Pulse Oximetry 99 Oxygen Delivery Fraction of Inspired Oxygen 09/16/24 22:17 09/16/24 23:59 09/17/24 00:00 Temperature 98.2 F Pulse Rate 97 74 73 Respiratory Rate 20 16 Blood Pressure 119/55 L Pulse Oximetry 92 99 Oxygen Delivery Room Air Fraction of Inspired Oxygen 21 09/17/24 02:00 09/17/24 03:36 09/17/24 04:00 Temperature 98.1 F Pulse Rate 87 70 84 Respiratory Rate 16 Blood Pressure 123/58 L Pulse Oximetry 99 Oxygen Delivery Fraction of Inspired Oxygen 09/17/24 06:00 09/17/24 08:00 09/17/24 08:00 Temperature 98.0 F Pulse Rate 85 71 69 Respiratory Rate 20 Blood Pressure 97/52 L Pulse Oximetry 99 Oxygen Delivery Fraction of Inspired Oxygen 09/17/24 08:25 09/17/24 08:33 09/17/24 08:45 Temperature 99.7 F H Pulse Rate 70 69 84 Respiratory Rate 16 Blood Pressure 94/56 L 99/59 L 105/64 Pulse Oximetry 97 Oxygen Delivery Fraction of Inspired Oxygen 09/17/24 09:00 09/17/24 09:15 09/17/24 09:30 Temperature Pulse Rate 83 84 83 Respiratory Rate Blood Pressure 94/64 L 92/58 L 106/65 Pulse Oximetry Oxygen Delivery Fraction of Inspired Oxygen 09/17/24 09:45 09/17/24 10:00 09/17/24 10:00 Temperature Pulse Rate 70 68 71 Respiratory Rate Blood Pressure 94/63 L 96/58 L Pulse Oximetry Oxygen Delivery Fraction of Inspired Oxygen 09/17/24 10:15 09/17/24 10:30 09/17/24 10:45 Temperature Pulse Rate 72 71 72 Respiratory Rate Blood Pressure 108/62 105/63 99/66 L Pulse Oximetry Oxygen Delivery Fraction of Inspired Oxygen 09/17/24 11:00 09/17/24 11:15 09/17/24 11:34 Temperature Pulse Rate 71 74 79 Respiratory Rate Blood Pressure 113/60 96/60 L 111/64 Pulse Oximetry Oxygen Delivery Fraction of Inspired Oxygen 09/17/24 11:49 09/17/24 12:00 09/17/24 14:00 Temperature 97.9 F Pulse Rate 78 85 84 Respiratory Rate 16 Blood Pressure 91/64 L Pulse Oximetry 95 Oxygen Delivery Fraction of Inspired Oxygen 09/17/24 16:00 09/17/24 16:00 Temperature 98.2 F Pulse Rate 86 85 Respiratory Rate 18 Blood Pressure 94/58 L Pulse Oximetry 97 Oxygen Delivery Fraction of Inspired Oxygen Intake/Output Intake/Output: Intake & Output 09/14/24 09/15/24 09/16/24 09/17/24 23:59 23:59 23:59 23:59 Intake Total 1272.3 156.7 Output Total 0 0 Balance 1272.3 156.7 Meds/Results Medications: Active Medications Generic Name Dose Route Start Last Admin Trade Name Freq PRN Reason Stop Dose Admin Acetaminophen 650 mg 09/16/24 12:39 Acetaminophen 325 Mg Tablet PO Q4H PRN Mild Pain (1-3) Al Hydrox/Mg Hydrox/Simethicone 30 ml 09/16/24 12:39 Mag Hydrox/Al Hydrox/Simeth 30 Ml Udc PO Q6H PRN Indigestion Aspirin 81 mg 09/17/24 08:00 09/17/24 14:13 Aspirin 81 Mg Chewable Tablet PO 81 mg DAILY@0800 ROSALINDA Administration Epoetin Brandon-epbx 10,000 units 09/17/24 18:56 09/17/24 11:24 Epoetin Brandon-Epbx 10,000 Units/Ml Vial IV PUSH 09/17/24 18:57 10,000 units ONCE ONE Administration Heparin Sodium (Porcine) 6,000 units 09/16/24 13:53 Heparin Sodium 5,000 Units/Ml Vial IV PUSH PRN PRN aPTT less than 55 seconds Heparin Sodium (Porcine) 3,000 units 09/16/24 13:53 Heparin Sodium 5,000 Units/Ml Vial IV PUSH PRN PRN aPTT 55 - 70 seconds Albumin Human 50 mls @ 999 mls/hr 09/16/24 11:49 Albutein IVPB 10/16/24 11:48 Q10M PRN HYPOTENSION Heparin Sodium/Dextrose 25,000 units in 250 mls @ 8 mls/hr 09/16/24 14:30 09/17/24 15:12 Heparin Sodium/D5w 100 Units/Ml IV CONT 800 units/hr .Q24H ROSALINDA 8 mls/hr Administration Protocol 800 UNITS/HR Levothyroxine Sodium 100 mcg 09/17/24 09:00 09/17/24 12:08 Levothyroxine Sodium 100 Mcg Tablet PO 100 mcg DAILY ROSALINDA Administration Morphine Sulfate 2 mg 09/16/24 09:08 Morphine Sulfate (*Crx) 2 Mg/Ml Inj IV PUSH Q2H PRN Pain Rated 7-10 Nifedipine 30 mg 09/17/24 09:00 09/17/24 12:11 Nifedipine 30 Mg Tab.Er.24 PO Not Given DAILY ROSALINDA Nitroglycerin 0.4 mg 09/16/24 12:39 09/17/24 12:41 Nitroglycerin Sl 0.4 Mg Tablet SUBLINGUAL 0.4 mg Q5MIN PRN Administration Chest Pain Ondansetron HCl 4 mg 09/16/24 09:08 Ondansetron Inj 4 Mg/2 Ml Vial IV PUSH Q4H PRN Nausea Perflutren Lipid Microsphere 0 ml 09/16/24 13:50 Perflutren Lipid Microspheres 1.5 Ml Vial Diluted To 10 Ml Total Volume IV PUSH 09/19/24 13:50 ONCE PRN adequate visualization Protocol Rosuvastatin Calcium 5 mg 09/17/24 09:00 09/17/24 14:13 Rosuvastatin 5 Mg Tablet PO 5 mg DAILY ROSALINDA Administration Radiology Results: ITS Impressions Chest X-Ray 09/16/24 07:41 Impression: Normal chest. Labs Labs: Laboratory Results - last 24 hr 09/16/24 09/16/24 09/16/24 18:41 18:42 20:41 WBC RBC Hgb Hct MCV MCH MCHC RDW Plt Count MPV Immature Gran % (Auto) Neut % (Auto) Lymph % (Auto) Rush % (Auto) Eos % (Auto) Baso % (Auto) Lymph # (Auto) Rush # (Auto) Eos # (Auto) Baso # (Auto) Abs Immat Gran (auto) Absolute Neuts (auto) Absolute Nucleated RBC Nucleated RBC % APTT 190.7 H* Sodium 138 Cancelled Potassium 3.1 L Cancelled Chloride 102 Cancelled Carbon Dioxide 18 L Cancelled Anion Gap 18 H Cancelled BUN 105 H* D Cancelled Creatinine 11.83 H Cancelled Estim Creat Clear Calc 5 Cancelled Estimated GFR 4 L Cancelled Glucose 118 H Cancelled Calcium 7.4 L Cancelled Total Bilirubin 0.5 Cancelled AST 474 H Cancelled ALT 403 H Cancelled Alkaline Phosphatase 76 Cancelled Troponin I 1.960 H* D Total Protein 5.8 L Cancelled Albumin 3.2 L Cancelled 09/17/24 09/17/24 09/17/24 04:31 09:09 11:44 WBC 9.4 RBC 2.45 L Hgb 7.5 L 7.9 L Hct 22.2 L 22.8 L MCV 90.6 MCH 30.6 MCHC 33.8 RDW 13.7 Plt Count 184 MPV 10.9 H Immature Gran % (Auto) 0.5 Neut % (Auto) 82.9 H Lymph % (Auto) 7.7 L Rush % (Auto) 8.3 Eos % (Auto) 0.3 Baso % (Auto) 0.3 Lymph # (Auto) 0.72 L Rush # (Auto) 0.8 H Eos # (Auto) 0.0 Baso # (Auto) 0.0 Abs Immat Gran (auto) 0.05 H Absolute Neuts (auto) 7.8 H Absolute Nucleated RBC 0.000 Nucleated RBC % 0.0 APTT 169.1 H* Sodium 138 Potassium 3.7 Chloride 103 Carbon Dioxide 18 L Anion Gap 17 H BUN 121 H* D Creatinine 14.09 H Estim Creat Clear Calc 4 Estimated GFR 3 L Glucose 102 Calcium 6.9 L Total Bilirubin 0.4 AST 351 H ALT 352 H Alkaline Phosphatase 62 Troponin I 5.050 H* Total Protein 5.4 L Albumin 2.9 L 09/17/24 12:37 WBC RBC Hgb Hct MCV MCH MCHC RDW Plt Count MPV Immature Gran % (Auto) Neut % (Auto) Lymph % (Auto) Rush % (Auto) Eos % (Auto) Baso % (Auto) Lymph # (Auto) Rush # (Auto) Eos # (Auto) Baso # (Auto) Abs Immat Gran (auto) Absolute Neuts (auto) Absolute Nucleated RBC Nucleated RBC % APTT 184.3 H* Sodium 137 Potassium 3.5 Chloride 102 Carbon Dioxide 24 Anion Gap 11 BUN 62 H D Creatinine 7.03 H Estim Creat Clear Calc 9 Estimated GFR 8 L Glucose 87 Calcium 7.6 L Total Bilirubin AST ALT Alkaline Phosphatase Troponin I 4.270 H* Total Protein Albumin
[2024-09-17] MEDS: NOREPINEPHRINE 8 MG/D5W 250 ML 8 MG/250 ML BAG 18.75 MG IV CONT (19:30)
[2024-09-17] MEDS: ONDANSETRON INJ 4 MG/2 ML VIAL IV PUSH (19:35)
[2024-09-17] MEDS: TICAGRELOR 90 MG TABLET 180 MG PO (20:07)
[2024-09-17 20:21] LABS: Partial Thromboplastin Time > 200.0 Seconds (22.3-36.8)
[2024-09-17] MEDS: SODIUM CHLORIDE 0.9% IV 250 ML 30 ML IV CONT (21:10)
[2024-09-18] VITALS (49 sets, daily range): BP systolic 87–129; BP diastolic 47–71; PULSE 69–94; RESP 13–19; TEMP 36.5–37.5; O2SAT 91–98
[2024-09-18 00:19] LABS: Partial Thromboplastin Time 60.2 Seconds (22.3-36.8)
--- NOTE | 2024-09-18 01:50 | ECG_ITS ---
Test Date: 2024-09-18 01:57:40 Measurements Intervals [place] Rate: 86 P: 4 UT: 159 QRS: 29 QRSD: 89 T: 71 QT: 393 QTc: 472 Interpretive Statements SINUS RHYTHM MINIMAL ST DEPRESSION Electronically Signed On 09-18-2024 07:07:57 CDT by Lonnie Reyes M.D.
[2024-09-18 02:25] LABS: Partial Thromboplastin Time 35.3 Seconds (22.3-36.8)
[2024-09-18 04:37] LABS: Hematocrit 21.7 % (42.0-52.0); Hemoglobin 7.3 g/dL (14.0-18.0); Immature Granulocyte Percent A 0.9 % (0-0.5); Lymphocytes Absolute Auto 0.70 K/mm3 (0.9-3.2); Mean Corpuscular HGB Conc 33.6 g/dl (32-36); Mean Corpuscular Hemoglobin 31.2 pg (26-34); Mean Corpuscular Volume 92.7 fl (80-100); Nucleated Red Blood Cells Absolute Auto 0.000 K/mm3 (0.0-0.012); Nucleated Red Blood Cells Perc 0.0 % (0.0-0.2); Platelet Count Result 182 k/mm3 (150-375); Red Blood Count 2.34 M/mm3 (4.6-6.20); White Blood Count 10.6 K/mm3 (4.5-10.0)
[2024-09-18 04:50] LABS: Alanine Aminotransferase 272 U/L (6-50); Albumin Level 2.6 g/dL (3.5-5.1); Alkaline Phosphatase 58 U/L (38-126); Anion Gap 10 mmol/L (4-12); Aspartate Amino Transferase 247 U/L (17-59); Bilirubin,Total 0.5 mg/dL (0.2-1.3); Blood Urea Nitrogen 84 mg/dL (9-20); Calcium 7.6 mg/dL (8.4-10.2); Carbon Dioxide 23 mmol/L (22-30); Chloride 102 mmol/L (98-107); Estimated CRCL calculation 7 ml/min; Estimated Glomerular Filt Rate 6; Glucose 104 mg/dL (65-110); Magnesium 2.2 mg/dL (1.6-2.3); Potassium 4.4 mmol/L (3.4-5.0); Sodium 135 mmol/L (137-145); Total Protein 5.0 g/dL (6.3-8.2)
--- NOTE | 2024-09-18 06:32 | PM.PNCARD ---
Progress Note: A&P Assessment and Plan (1) NSTEMI (non-ST elevated myocardial infarction): Code(s): I21.4 - Non-ST elevation (NSTEMI) myocardial infarction Status: Acute Plan -NSTEMI -status post PCI to 99% ISR of ostial LCX (prior stent placed in 03/2024) on 09/17/24; chest pain-free post PCI ------TTE showed normal LVEF of 60 she has expressed%, mild aortic stenosis -Elevated BNP of 8710 -ANNA MARIE with creatinine of 20 at presentation- started on dialysis with drop in creatinine to 7; creatinine is 8 today -Anemia-received 1 unit of PRBC overnight with hemoglobin of 7.3 this morning -Hypotension-SBP in the 90s with Levophed going at 7.5 mcg/min Plan: -Patient had ISR of his ostial LCX stent that was placed in 03/2024 status post PCI yesterday with 3.5 mm X 18 mm [employer] bee Luce JESÚS (please see cath report for full details of procedure). He is at high risk for recurrent restenoses given ISR of recent stent. Recommend DAPT with aspirin 81 mg daily and ticagrelor 90 mg b.i.d. for longer than 1 year if he is able to tolerate it without any bleeding issues -Continue Crestor 5 mg daily-started yesterday. Recheck of LFTs showed they are down trending -Check H&H daily and keep hemoglobin greater than 8 -Wean norepinephrine keeping map greater than 60 -Hold all antihypertensive meds. Start Metoprolol 12.5 mg p.o. b.i.d. when SBP greater than 110 mm Hg off Levophed -Check and replace electrolytes to keep potassium greater than 4 and magnesium greater than 2 Subjective Date/time seen: 09/18/24 06:32 Interval history: Reason for encounter: NSTEMI status post PCI to 99% thrombotic stenosis of ostial LCX on 09/17/2020 Interval history: No chest pain since PCI yesterday. No shortness of breath. He is on small dose of Levophed 7.5 microgram/minute with SBP in the 90s. He received 1 unit of PRBC transfusion and hemoglobin is still 7.2. Telemetry shows sinus rhythm. EKG shows sinus rhythm with no significant ST elevations or depressions. Review of Systems Cardiovascular: Comments: As per HPI Respiratory: Comments: As per HPI Exam Narrative: General: Alert oriented x3, no acute distress, laying flat due to dialysis catheter in the lower extremity Neck: Supple, no JVD Chest: Bilaterally clear to auscultation, no rales or rhonchi Cardiac: S1, S2 +, regular rate, regular rhythm, no murmurs or rubs Extremities: No pedal edema, no skin rash Neurologic: Alert and oriented x3, no focal neurological deficits Objective Data Vital Signs Vital Signs: Vital Signs - 24 hr 09/17/24 08:00 09/17/24 08:00 09/17/24 08:25 Temperature 36.7 C 37.6 C H Pulse Rate 71 69 70 Pulse Rate [Right Radial Palpation] Respiratory Rate 20 16 Blood Pressure 97/52 L 94/56 L Pulse Oximetry 99 97 Oxygen Delivery Oxygen Flow Rate 09/17/24 08:33 09/17/24 08:45 09/17/24 09:00 Temperature Pulse Rate 69 84 83 Pulse Rate [Right Radial Palpation] Respiratory Rate Blood Pressure 99/59 L 105/64 94/64 L Pulse Oximetry Oxygen Delivery Oxygen Flow Rate 09/17/24 09:15 09/17/24 09:30 09/17/24 09:45 Temperature Pulse Rate 84 83 70 Pulse Rate [Right Radial Palpation] Respiratory Rate Blood Pressure 92/58 L 106/65 94/63 L Pulse Oximetry Oxygen Delivery Oxygen Flow Rate 09/17/24 10:00 09/17/24 10:00 09/17/24 10:15 Temperature Pulse Rate 68 71 72 Pulse Rate [Right Radial Palpation] Respiratory Rate Blood Pressure 96/58 L 108/62 Pulse Oximetry Oxygen Delivery Oxygen Flow Rate 09/17/24 10:30 09/17/24 10:45 09/17/24 11:00 Temperature Pulse Rate 71 72 71 Pulse Rate [Right Radial Palpation] Respiratory Rate Blood Pressure 105/63 99/66 L 113/60 Pulse Oximetry Oxygen Delivery Oxygen Flow Rate 09/17/24 11:15 09/17/24 11:34 09/17/24 11:49 Temperature 36.6 C Pulse Rate 74 79 78 Pulse Rate [Right Radial Palpation] Respiratory Rate 16 Blood Pressure 96/60 L 111/64 91/64 L Pulse Oximetry 95 Oxygen Delivery Oxygen Flow Rate 09/17/24 12:00 09/17/24 14:00 09/17/24 16:00 Temperature 36.8 C Pulse Rate 85 84 86 Pulse Rate [Right Radial Palpation] Respiratory Rate 18 Blood Pressure 94/58 L Pulse Oximetry 97 Oxygen Delivery Oxygen Flow Rate 09/17/24 16:00 09/17/24 19:00 09/17/24 19:30 Temperature 36.0 C L Pulse Rate 85 95 95 Pulse Rate [Right Radial Palpation] 95 Respiratory Rate 18 Blood Pressure 119/51 L 119/51 L Pulse Oximetry 94 Oxygen Delivery Oxygen Flow Rate 09/17/24 19:45 09/17/24 20:00 09/17/24 20:00 Temperature Pulse Rate 93 98 100 Pulse Rate [Right Radial Palpation] 93 Respiratory Rate 16 Blood Pressure 73/51 L 85/49 L Pulse Oximetry 92 Oxygen Delivery Oxygen Flow Rate 09/17/24 20:00 09/17/24 20:00 09/17/24 20:00 Temperature 36.4 C Pulse Rate 97 97 Pulse Rate [Right Radial Palpation] 97 Respiratory Rate 18 18 Blood Pressure 85/49 L Pulse Oximetry 96 92 Oxygen Delivery Room Air Oxygen Flow Rate 09/17/24 20:15 09/17/24 20:30 09/17/24 21:00 Temperature Pulse Rate 95 93 93 Pulse Rate [Right Radial Palpation] 93 93 Respiratory Rate 13 15 Blood Pressure 92/58 L 92/66 L 88/69 L Pulse Oximetry 92 94 Oxygen Delivery Oxygen Flow Rate 09/17/24 21:00 09/17/24 21:05 09/17/24 21:10 Temperature 36.4 C Pulse Rate 89 Pulse Rate [Right Radial Palpation] Respiratory Rate 18 18 16 Blood Pressure 92/61 L Pulse Oximetry 90 96 97 Oxygen Delivery Nasal Cannula Nasal Cannula Oxygen Flow Rate 2 2 09/17/24 21:25 09/17/24 22:00 09/17/24 22:00 Temperature 36.4 C Pulse Rate 88 81 86 Pulse Rate [Right Radial Palpation] 93 Respiratory Rate 12 17 Blood Pressure 115/61 88/69 L Pulse Oximetry 96 94 Oxygen Delivery Oxygen Flow Rate 09/17/24 22:25 09/17/24 22:30 09/17/24 22:45 Temperature 36.5 C Pulse Rate 79 82 78 Pulse Rate [Right Radial Palpation] Respiratory Rate 16 Blood Pressure 132/63 137/67 106/56 L Pulse Oximetry 96 Oxygen Delivery Oxygen Flow Rate 09/17/24 22:50 09/17/24 23:00 09/17/24 23:37 Temperature 36.4 C Pulse Rate 79 95 75 Pulse Rate [Right Radial Palpation] 95 75 Respiratory Rate 16 17 19 Blood Pressure 106/56 L 123/61 128/68 Pulse Oximetry 96 96 96 Oxygen Delivery Oxygen Flow Rate 09/18/24 00:00 09/18/24 00:00 09/18/24 00:00 Temperature 36.5 C Pulse Rate 73 78 78 Pulse Rate [Right Radial Palpation] Respiratory Rate 18 18 Blood Pressure 125/59 L Pulse Oximetry 95 95 Oxygen Delivery Nasal Cannula Oxygen Flow Rate 2 09/18/24 00:00 09/18/24 00:07 09/18/24 00:39 Temperature Pulse Rate 75 72 Pulse Rate [Right Radial Palpation] 75 Respiratory Rate Blood Pressure 125/59 L 120/65 Pulse Oximetry Oxygen Delivery Oxygen Flow Rate 09/18/24 01:00 09/18/24 01:15 09/18/24 01:30 Temperature Pulse Rate 73 70 72 Pulse Rate [Right Radial Palpation] Respiratory Rate Blood Pressure 117/63 113/66 105/65 Pulse Oximetry Oxygen Delivery Oxygen Flow Rate 09/18/24 01:45 09/18/24 02:00 09/18/24 02:00 Temperature Pulse Rate 72 72 72 Pulse Rate [Right Radial Palpation] Respiratory Rate 17 Blood Pressure 117/62 110/62 110/62 Pulse Oximetry 96 Oxygen Delivery Oxygen Flow Rate 09/18/24 02:00 09/18/24 02:07 09/18/24 02:45 Temperature Pulse Rate 72 71 Pulse Rate [Right Radial Palpation] 85 71 Respiratory Rate 16 Blood Pressure 95/52 L Pulse Oximetry 97 Oxygen Delivery Oxygen Flow Rate 09/18/24 03:00 09/18/24 03:15 09/18/24 03:30 Temperature Pulse Rate 69 69 72 Pulse Rate [Right Radial Palpation] 69 69 72 Respiratory Rate 16 14 13 Blood Pressure 107/64 106/64 129/54 L Pulse Oximetry 97 97 97 Oxygen Delivery Oxygen Flow Rate 09/18/24 04:00 09/18/24 04:00 09/18/24 04:00 Temperature 36.7 C Pulse Rate 71 71 71 Pulse Rate [Right Radial Palpation] Respiratory Rate 15 Blood Pressure 110/59 L 110/59 L Pulse Oximetry 97 Oxygen Delivery Oxygen Flow Rate 09/18/24 04:00 09/18/24 04:00 09/18/24 05:40 Temperature Pulse Rate 71 84 Pulse Rate [Right Radial Palpation] 71 84 Respiratory Rate 15 19 Blood Pressure 95/58 L Pulse Oximetry 97 94 Oxygen Delivery Nasal Cannula Oxygen Flow Rate 2 09/18/24 06:00 09/18/24 06:00 Temperature Pulse Rate 83 83 Pulse Rate [Right Radial Palpation] Respiratory Rate 14 Blood Pressure 115/61 Pulse Oximetry 93 Oxygen Delivery Oxygen Flow Rate Intake/Output Intake/Output: Intake & Output 09/15/24 09/16/24 09/17/24 09/18/24 23:59 23:59 23:59 23:59 Intake Total 1272.3 691.1 317.2 Output Total 0 0 Balance 1272.3 691.1 317.2 Meds/Results Medications: Active Medications Generic Name Dose Route Start Last Admin Trade Name Freq PRN Reason Stop Dose Admin Acetaminophen 650 mg 09/16/24 12:39 Acetaminophen 325 Mg Tablet PO Q4H PRN Mild Pain (1-3) Al Hydrox/Mg Hydrox/Simethicone 30 ml 09/16/24 12:39 Mag Hydrox/Al Hydrox/Simeth 30 Ml Udc PO Q6H PRN Indigestion Aspirin 81 mg 09/17/24 08:00 09/17/24 14:13 Aspirin 81 Mg Chewable Tablet PO 81 mg DAILY@0800 [facility] Administration Heparin Sodium (Porcine) 6,000 units 09/16/24 13:53 Heparin Sodium 5,000 Units/Ml Vial IV PUSH PRN PRN aPTT less than 55 seconds Heparin Sodium (Porcine) 3,000 units 09/16/24 13:53 Heparin Sodium 5,000 Units/Ml Vial IV PUSH PRN PRN aPTT 55 - 70 seconds Albumin Human 50 mls @ 999 mls/hr 09/16/24 11:49 Albutein IVPB 10/16/24 11:48 Q10M PRN HYPOTENSION Heparin Sodium/Dextrose 25,000 units in 250 mls @ 8 mls/hr 09/16/24 14:30 09/17/24 20:00 Heparin Sodium/D5w 100 Units/Ml IV CONT Not Given .Q24H [facility] Protocol 800 UNITS/HR Norepinephrine Bitartrate 8 mg in 250 mls @ 7.5 mls/hr 09/17/24 19:30 09/18/24 04:00 Levophed 8 Mg/D5w 250 Ml IV CONT 4 mcg/min .Q24H ROSALINDA 7.5 mls/hr Titration Protocol 4 MCG/MIN Levothyroxine Sodium 100 mcg 09/17/24 09:00 09/17/24 12:08 Levothyroxine Sodium 100 Mcg Tablet PO 100 mcg DAILY ROSALINDA Administration Morphine Sulfate 2 mg 09/16/24 09:08 Morphine Sulfate (*Crx) 2 Mg/Ml Inj IV PUSH Q2H PRN Pain Rated 7-10 Nifedipine 30 mg 09/17/24 09:00 09/17/24 12:11 Nifedipine 30 Mg Tab.Er.24 PO Not Given DAILY [facility] Nitroglycerin 0.4 mg 09/16/24 12:39 09/17/24 12:41 Nitroglycerin Sl 0.4 Mg Tablet SUBLINGUAL 0.4 mg Q5MIN PRN Administration Chest Pain Ondansetron HCl 4 mg 09/16/24 09:08 09/17/24 19:35 Ondansetron Inj 4 Mg/2 Ml Vial IV PUSH 4 mg Q4H PRN Administration Nausea Perflutren Lipid Microsphere 0 ml 09/16/24 13:50 Perflutren Lipid Microspheres 1.5 Ml Vial Diluted To 10 Ml Total Volume IV PUSH 09/19/24 13:50 ONCE PRN adequate visualization Protocol Rosuvastatin Calcium 5 mg 09/17/24 09:00 09/17/24 14:13 Rosuvastatin 5 Mg Tablet PO 5 mg DAILY ROSALINDA Administration Ticagrelor 90 mg 09/18/24 09:00 Ticagrelor 90 Mg Tablet PO Q12HR [facility] Radiology Results: ITS Impressions Chest X-Ray 09/16/24 07:41 Impression: Normal chest. Labs Labs: Laboratory Results - last 24 hr 09/17/24 09/17/24 09/17/24 09:09 11:44 12:37 WBC RBC Hgb 7.9 L Hct 22.8 L MCV MCH MCHC RDW Plt Count MPV Immature Gran % (Auto) Neut % (Auto) Lymph % (Auto) Dickinson % (Auto) Eos % (Auto) Baso % (Auto) Lymph # (Auto) Dickinson # (Auto) Eos # (Auto) Baso # (Auto) Abs Immat Gran (auto) Absolute Neuts (auto) Absolute Nucleated RBC Nucleated RBC % APTT 184.3 H* Activ Coag Time Kaolin Sodium 137 Potassium 3.5 Chloride 102 Carbon Dioxide 24 Anion Gap 11 BUN 62 H D Creatinine 7.03 H Estim Creat Clear Calc 9 Estimated GFR 8 L Glucose 87 Calcium 7.6 L Magnesium Total Bilirubin AST ALT Alkaline Phosphatase Troponin I 5.050 H* 4.270 H* Total Protein Albumin Blood Type Antibody Screen Crossmatch 09/17/24 09/17/24 09/17/24 17:40 17:59 18:24 WBC RBC Hgb Hct MCV MCH MCHC RDW Plt Count MPV Immature Gran % (Auto) Neut % (Auto) Lymph % (Auto) Dickinson % (Auto) Eos % (Auto) Baso % (Auto) Lymph # (Auto) Dickinson # (Auto) Eos # (Auto) Baso # (Auto) Abs Immat Gran (auto) Absolute Neuts (auto) Absolute Nucleated RBC Nucleated RBC % APTT Activ Coag Time Kaolin 216 H 239 H 326 H Sodium Potassium Chloride Carbon Dioxide Anion Gap BUN Creatinine Estim Creat Clear Calc Estimated GFR Glucose Calcium Magnesium Total Bilirubin AST ALT Alkaline Phosphatase Troponin I Total Protein Albumin Blood Type Antibody Screen Crossmatch 09/17/24 09/17/24 09/17/24 18:30 19:48 23:59 WBC RBC Hgb Hct MCV MCH MCHC RDW Plt Count MPV Immature Gran % (Auto) Neut % (Auto) Lymph % (Auto) Dickinson % (Auto) Eos % (Auto) Baso % (Auto) Lymph # (Auto) Dickinson # (Auto) Eos # (Auto) Baso # (Auto) Abs Immat Gran (auto) Absolute Neuts (auto) Absolute Nucleated RBC Nucleated RBC % APTT > 200.0 H* 60.2 H Activ Coag Time Kaolin Sodium Potassium Chloride Carbon Dioxide Anion Gap BUN Creatinine Estim Creat Clear Calc Estimated GFR Glucose Calcium Magnesium Total Bilirubin AST ALT Alkaline Phosphatase Troponin I Total Protein Albumin Blood Type A Negative Antibody Screen Negative Crossmatch See Detail 09/18/24 09/18/24 02:03 04:15 WBC 10.6 H RBC 2.34 L Hgb 7.3 L Hct 21.7 L MCV 92.7 MCH 31.2 MCHC 33.6 RDW 14.1 Plt Count 182 MPV 10.9 H Immature Gran % (Auto) 0.9 H Neut % (Auto) 81.9 H Lymph % (Auto) 6.6 L Dickinson % (Auto) 9.8 H Eos % (Auto) 0.3 Baso % (Auto) 0.5 Lymph # (Auto) 0.70 L Dickinson # (Auto) 1.0 H Eos # (Auto) 0.0 Baso # (Auto) 0.1 Abs Immat Gran (auto) 0.10 H Absolute Neuts (auto) 8.7 H Absolute Nucleated RBC 0.000 Nucleated RBC % 0.0 APTT 35.3 Activ Coag Time Kaolin Sodium 135 L Potassium 4.4 Chloride 102 Carbon Dioxide 23 Anion Gap 10 BUN 84 H D Creatinine 8.73 H Estim Creat Clear Calc 7 Estimated GFR 6 L Glucose 104 Calcium 7.6 L Magnesium 2.2 Total Bilirubin 0.5 AST 247 H ALT 272 H Alkaline Phosphatase 58 Troponin I Total Protein 5.0 L Albumin 2.6 L Blood Type Antibody Screen Crossmatch
--- NOTE | 2024-09-18 08:07 | P.CONIN_ITS ---
Assessment and Plan Assessment and plan (1) NSTEMI (non-ST elevated myocardial infarction): Code(s): I21.4 - Non-ST elevation (NSTEMI) myocardial infarction Status: Acute Assessment and Plan: 09/16: Patient presented with generalized weakness, chest pain. Was found to be in acute on chronic renal failure with creatinine of 20 and BUN of 161. -troponins peaked at 5.05 -09/17: status post PTCA/PCI with JESÚS x1 to left circumflex which had a 99% in stent restenoses of the ostial circumflex -continue aspirin, ticagrelor, rosuvastatin -patient did have cardiogenic shock on the cardiac cath table requiring Kyrie- Synephrine, started on Levophed which is being weaned, maintain MAP 60-65 mmHg per Cardiology -hemoglobin 7.3 this morning, cardiology requested 1 unit of packed RBCs to to keep hemoglobin > 8.0 -cardiology following the patient 09/17/2024: Echocardiogram: Summary 1. Complete two-dimensional, color flow and Doppler transthoracic echocardiogram is performed. 2. This was a technically difficult study with poorly visualized acoustic windows and limited views. 3. There is normal biventricular size and systolic function. EF 60-65%, normal RV systolic function. 4. There is at least mild aortic stenosis. Due to limited windows and poorly visualized acoustic views, unable to quantify the degree of aortic stenosis in this study. (2) Acute on chronic renal failure: Code(s): N17.9 - Acute kidney failure, unspecified; N18.9 - Chronic kidney disease, unspecified Status: Acute Assessment and Plan: Patient presented with generalized weakness, decreased appetite and p.o. intake. He did continue to take his blood pressure medications -creatinine was 20.08, BUN was 164 potassium was 6.0 on admission -could be related to low flow state due to hypotension, coronary artery disease, decreased p.o. intake, low flow state -09/16: Dialysis catheter was placed by surgery more right femoral vein -09/16: Nephrology was consulted and started on dialysis -09/17: Again receive dialysis -no urine output, BUN creatinine trending down, -will discuss with Nephrology regarding fluid removal as may have some pulmonary edema on chest x-ray (3) Anemia: Code(s): D64.9 - Anemia, unspecified Status: Acute Assessment and Plan: Patient anemic on admission, hemoglobin was 9.0 (hemoglobin in March was 12.1) -he did drop his hemoglobin on 09/17 requiring 1 unit of packed RBCs -09/18: Hemoglobin 7.3 this morning, cardiology requested 1 unit of packed RBCs to maintain Hb > 8.0 since he has coronary artery disease. 1 unit of packed RBCs has been ordered -patient denies any regular NSAID use -denies any dark stools or coffee-ground emesis, hematemesis, hematochezia -history of removal of colonic polyp on 05/10/2022 you on a colonoscopy done here at [facility] -will check iron panel, stool for occult blood, folic acid and vitamin B12 -GI consulted -Protonix IV q.12 hours (4) Coronary artery disease: Code(s): I25.10 - Atherosclerotic heart disease of [place] coronary artery without angina pectoris Status: Acute Assessment and Plan: Patient has a history of coronary artery disease and stent x2 in March 2024 at [facility] (5) Hypertension: Code(s): I10 - Essential (primary) hypertension Status: Acute Assessment and Plan: History of essential hypertension, will hold antihypertensives since he is on pressors (6) Transaminitis: Code(s): R74.01 - Elevation of levels of liver transaminase levels Status: Acute Assessment and Plan: Elevated LFTs likely related to coronary artery disease, renal function, hypotension, low-flow state -LFTs improving with better blood pressures and adequate perfusion -continue to monitor (7) Electrolyte imbalance: Code(s): E87.8 - Other disorders of electrolyte and fluid balance, not elsewhere classified Status: Acute Assessment and Plan: Hyperkalemia on admission has resolved with dialysis, continue to monitor Plan DVT prophylaxis: SCDs for now since patient is anemia Stress ulcer prophylaxis: Protonix IV q.12 hours Nutrition: Renal and heart healthy diet Code Status: Full code Critical Care Time Spent: 49 minutes Discussed with patient and his at bedside, updated with patient's condition and plan of care. I answered all question Due to a high probability of clinically significant, life threatening deterioration, the patient required my highest level of preparedness to intervene emergently and I personally spent this critical care time directly and personally managing the patient. This critical care time included obtaining a history; examining the patient; pulse oximetry; ordering and review of studies; arranging urgent treatment with development of a management plan; evaluation of patient's response to treatment; frequent reassessment; and discussions with other providers. It was exclusive of separately billable procedures and treating other patients and teaching time. Please see Assessment and Plan section and the rest of the note for further information on patient assessment and treatment This dictation may have been done utilizing a voice recognition system. Attempts have been made to correct errors. However, there may be uncorrected grammatical, spelling, and recognitions errors present. Room Clerk Consult Note Consult date: 09/18/24 Reason for consult: NSTEMI, acute kidney injury, status post PTCA/PCI with JESÚS x1 to left circumflex which had a 99% in stent restenoses of the ostial circumflex HPI: Derrek Diaz is a 73 year old male with past medical history of coronary artery disease, status post stent x2 in March 2024 at [facility], essential hypertension, carotid stenosis status post right common carotid artery stent placement in 2024 at [facility], adenomatous colonic polyp removal on 05/10/2022 a colonoscopy done here at [facility]. Patient presented to the ED on 09/16/2024 with complains of generalized weakness, chest pain. In the ER patient stated that he was diagnosed with renal failure but 2 weeks prior to admission has been having increased weakness and fatigue since the end of August 2024. He has decreased appetite and has not been eating or decreasing since the end of August. He does report of muscle cramps in his lower extremities, chest discomfort along with cough. He took some sublingual nitro which relieved his chest pain at home. Denies any radiation to the arm, neck or jaw. He denies any diaphoresis, dizziness, presyncope or syncopal episodes. In the ED patient had a leukocytosis of 13.6, hemoglobin 9.8, sodium 135, potassium 6.0, CO2 <5, BUN 164, creatinine 20.08, AST 594, ALT 465, lipase 363. Troponin initially was 0.25--> peaked at 5.05. 09/16: Dialysis catheter was placed by surgery and patient was started on dialysis 09/17: Status post PTCA/PCI with JESÚS x1 to left circumflex which had a 99% in stent rate a restenoses of the ostial circumflex 09/18/2024: Patient seen and examined this morning, pleasant gentleman, laying comfortably in bed, in no distress, denies any chest pain, shortness of breath, abdominal pain, nausea, vomiting. States he feels better since the time he has come to the hospital. Patient was in cardiogenic shock and the cardiac clinical lab technologist, received Kyrie-Synephrine and was started on norepinephrine which is being weaned. Patient did receive a unit of packed RBCs on 09/17. Hemoglobin this morning is 7.3 from 7.9 yesterday. No urine output has been recorded, patient did receive dialysis on 09/16 and 09/17 Review of Systems 2 Review of Systems: All systems reviewed & are unremarkable except as noted in HPI and below PMFSH Past Medical History Medical History (Updated 09/18/24 @ 08:54 by Cha Hughes MD) History of right common carotid artery stent placement Coronary artery disease Adenomatous colon polyp Hypertension Surgical History Surgical History History of percutaneous coronary intervention Social History Social History Smoking packs per day: 2 Smoking cigarettes per day: 40.0 Years smoked: 50 Smoking pack-years: 100.00 Smoking status: Former smoker Tobacco type: cigarettes Second hand tobacco smoke exposure: Yes Smoking end date: 09/06/13 Alcohol intake: current Drinks per week: 2 Alcohol use details: BEERS Substance use: never Substance use type: does not use Do You Feel Safe in your Home?: Yes Lack of Transportation: No Lack of Food: Never True Current Housing: I Have Housing Concerned About Future Housing: No Difficulty Paying Gas/Electric Bills: No Difficulty Paying for Meds: No Currently Unemployed: No Education: High School Diploma/GED Difficulty w/ Childcare or Family Care: No Living arrangements: with family Gender identity (if verbalized by the patient): Male Spiritual care concerns: No Meds Home Medications and Allergies Home Medications ?Medication ?Instructions ?Recorded ?Confirmed ?Type ascorbic acid (vitamin C) 500 mg 500 mg PO DAILY 02/06/20 09/16/24 History tablet folic acid 1 mg tablet 1 mg PO DAILY 02/06/20 09/16/24 History levothyroxine 100 mcg tablet 100 mcg PO DAILY 11/28/20 07/09/25 History (Synthroid) rosuvastatin 5 mg tablet 5 mg PO DAILY 05/22/22 09/16/24 History nifedipine 30 mg tablet,extended 30 mg PO DAILY 09/16/24 09/16/24 History release 24 hr Allergies Allergy/AdvReac Type Severity Reaction Status Date / Time No Known Allergies Allergy Verified 05/28/22 07:46 Vital Signs Vital Signs - 24 hr 09/17/24 08:25 09/17/24 08:33 09/17/24 08:45 Temperature 99.7 F H Pulse Rate 70 69 84 Pulse Rate [Right Radial Palpation] Respiratory Rate 16 Blood Pressure 94/56 L 99/59 L 105/64 Pulse Oximetry 97 Oxygen Delivery Oxygen Flow Rate 09/17/24 09:00 09/17/24 09:15 09/17/24 09:30 Temperature Pulse Rate 83 84 83 Pulse Rate [Right Radial Palpation] Respiratory Rate Blood Pressure 94/64 L 92/58 L 106/65 Pulse Oximetry Oxygen Delivery Oxygen Flow Rate 09/17/24 09:45 09/17/24 10:00 09/17/24 10:00 Temperature Pulse Rate 70 68 71 Pulse Rate [Right Radial Palpation] Respiratory Rate Blood Pressure 94/63 L 96/58 L Pulse Oximetry Oxygen Delivery Oxygen Flow Rate 09/17/24 10:15 09/17/24 10:30 09/17/24 10:45 Temperature Pulse Rate 72 71 72 Pulse Rate [Right Radial Palpation] Respiratory Rate Blood Pressure 108/62 105/63 99/66 L Pulse Oximetry Oxygen Delivery Oxygen Flow Rate 09/17/24 11:00 09/17/24 11:15 09/17/24 11:34 Temperature Pulse Rate 71 74 79 Pulse Rate [Right Radial Palpation] Respiratory Rate Blood Pressure 113/60 96/60 L 111/64 Pulse Oximetry Oxygen Delivery Oxygen Flow Rate 09/17/24 11:49 09/17/24 12:00 09/17/24 14:00 Temperature 97.9 F Pulse Rate 78 85 84 Pulse Rate [Right Radial Palpation] Respiratory Rate 16 Blood Pressure 91/64 L Pulse Oximetry 95 Oxygen Delivery Oxygen Flow Rate 09/17/24 16:00 09/17/24 16:00 09/17/24 19:00 Temperature 98.2 F 96.8 F L Pulse Rate 86 85 95 Pulse Rate [Right Radial Palpation] 95 Respiratory Rate 18 18 Blood Pressure 94/58 L 119/51 L Pulse Oximetry 97 94 Oxygen Delivery Oxygen Flow Rate 09/17/24 19:30 09/17/24 19:45 09/17/24 20:00 Temperature Pulse Rate 95 93 98 Pulse Rate [Right Radial Palpation] 93 Respiratory Rate 16 Blood Pressure 119/51 L 73/51 L 85/49 L Pulse Oximetry 92 Oxygen Delivery Oxygen Flow Rate 09/17/24 20:00 09/17/24 20:00 09/17/24 20:00 Temperature 97.6 F Pulse Rate 100 97 97 Pulse Rate [Right Radial Palpation] Respiratory Rate 18 18 Blood Pressure 85/49 L Pulse Oximetry 96 92 Oxygen Delivery Room Air Oxygen Flow Rate 09/17/24 20:00 09/17/24 20:15 09/17/24 20:30 Temperature Pulse Rate 95 93 Pulse Rate [Right Radial Palpation] 97 93 Respiratory Rate 13 Blood Pressure 92/58 L 92/66 L Pulse Oximetry 92 Oxygen Delivery Oxygen Flow Rate 09/17/24 21:00 09/17/24 21:00 09/17/24 21:05 Temperature Pulse Rate 93 Pulse Rate [Right Radial Palpation] 93 Respiratory Rate 15 18 18 Blood Pressure 88/69 L Pulse Oximetry 94 90 96 Oxygen Delivery Nasal Cannula Nasal Cannula Oxygen Flow Rate 2 2 09/17/24 21:10 09/17/24 21:25 09/17/24 22:00 Temperature 97.6 F 97.6 F Pulse Rate 89 88 81 Pulse Rate [Right Radial Palpation] Respiratory Rate 16 12 Blood Pressure 92/61 L 115/61 Pulse Oximetry 97 96 Oxygen Delivery Oxygen Flow Rate 09/17/24 22:00 09/17/24 22:25 09/17/24 22:30 Temperature 97.7 F Pulse Rate 86 79 82 Pulse Rate [Right Radial Palpation] 93 Respiratory Rate 17 16 Blood Pressure 88/69 L 132/63 137/67 Pulse Oximetry 94 96 Oxygen Delivery Oxygen Flow Rate 09/17/24 22:45 09/17/24 22:50 09/17/24 23:00 Temperature 97.6 F Pulse Rate 78 79 95 Pulse Rate [Right Radial Palpation] 95 Respiratory Rate 16 17 Blood Pressure 106/56 L 106/56 L 123/61 Pulse Oximetry 96 96 Oxygen Delivery Oxygen Flow Rate 09/17/24 23:37 09/18/24 00:00 09/18/24 00:00 Temperature 97.7 F Pulse Rate 75 73 78 Pulse Rate [Right Radial Palpation] 75 Respiratory Rate 19 18 Blood Pressure 128/68 125/59 L Pulse Oximetry 96 95 Oxygen Delivery Oxygen Flow Rate 09/18/24 00:00 09/18/24 00:00 09/18/24 00:07 Temperature Pulse Rate 78 75 Pulse Rate [Right Radial Palpation] 75 Respiratory Rate 18 Blood Pressure 125/59 L Pulse Oximetry 95 Oxygen Delivery Nasal Cannula Oxygen Flow Rate 2 09/18/24 00:39 09/18/24 01:00 09/18/24 01:15 Temperature Pulse Rate 72 73 70 Pulse Rate [Right Radial Palpation] Respiratory Rate Blood Pressure 120/65 117/63 113/66 Pulse Oximetry Oxygen Delivery Oxygen Flow Rate 09/18/24 01:30 09/18/24 01:45 09/18/24 02:00 Temperature Pulse Rate 72 72 72 Pulse Rate [Right Radial Palpation] Respiratory Rate Blood Pressure 105/65 117/62 110/62 Pulse Oximetry Oxygen Delivery Oxygen Flow Rate 09/18/24 02:00 09/18/24 02:00 09/18/24 02:07 Temperature Pulse Rate 72 72 Pulse Rate [Right Radial Palpation] 85 Respiratory Rate 17 Blood Pressure 110/62 Pulse Oximetry 96 Oxygen Delivery Oxygen Flow Rate 09/18/24 02:45 09/18/24 03:00 09/18/24 03:15 Temperature Pulse Rate 71 69 69 Pulse Rate [Right Radial Palpation] 71 69 69 Respiratory Rate 16 16 14 Blood Pressure 95/52 L 107/64 106/64 Pulse Oximetry 97 97 97 Oxygen Delivery Oxygen Flow Rate 09/18/24 03:30 09/18/24 04:00 09/18/24 04:00 Temperature 98.1 F Pulse Rate 72 71 71 Pulse Rate [Right Radial Palpation] 72 Respiratory Rate 13 15 Blood Pressure 129/54 L 110/59 L Pulse Oximetry 97 97 Oxygen Delivery Oxygen Flow Rate 09/18/24 04:00 09/18/24 04:00 09/18/24 04:00 Temperature Pulse Rate 71 71 Pulse Rate [Right Radial Palpation] 71 Respiratory Rate 15 Blood Pressure 110/59 L Pulse Oximetry 97 Oxygen Delivery Nasal Cannula Oxygen Flow Rate 2 09/18/24 05:40 09/18/24 06:00 09/18/24 06:00 Temperature Pulse Rate 84 83 83 Pulse Rate [Right Radial Palpation] 84 Respiratory Rate 19 14 Blood Pressure 95/58 L 115/61 Pulse Oximetry 94 93 Oxygen Delivery Oxygen Flow Rate Exam 2 Narrative: General: Pleasant gentleman in no acute distress HEENT:? Pupils equal and reactive, sclera is clear Neck:? Supple Respiratory:? Coarse breath sounds on the right side as compared to the left, no wheezing, adequate air entry Cardiac:? S1-S2 is normal, regular rate and rhythm Abdomen:? Soft, nontender, nondistended, normoactive bowel sound Extremities:? Trace edema, palpable pedal pulses. Right radial artery palpable, no evidence of hematoma or ecchymoses on the right wrist at the site of catheterization Neuro:? Patient is awake, alert, oriented, nonfocal, able to answer questions appropriately and follows simple commands Skin:? No lesions noted, Psych:? Normal mentation and affect Results Labs 09/18/24 04:15 09/18/24 04:15 Labs: Short CBC 09/17/24 09/18/24 Range/Units 11:44 04:15 WBC 10.6 H (4.5-10.0) K/mm3 Hgb 7.9 L 7.3 L (14.0-18.0) g/dL Hct 22.8 L 21.7 L (42.0-52.0) % Plt Count 182 (150-375) k/mm3 BMP 09/17/24 09/18/24 12:37 04:15 Sodium 137 135 L Potassium 3.5 4.4 Chloride 102 102 Carbon Dioxide 24 23 BUN 62 H D 84 H D Creatinine 7.03 H 8.73 H Glucose 87 104 Calcium 7.6 L 7.6 L Cardiac Enzymes 09/17/24 09/17/24 Range/Units 09:09 12:37 Troponin I 5.050 H* 4.270 H* (0.000-0.034) ng/mL Liver Function 09/18/24 Range/Units 04:15 Total Bilirubin 0.5 (0.2-1.3) mg/dL AST 247 H (17-59) U/L ALT 272 H (6-50) U/L Alkaline Phosphatase 58 (38-126) U/L Albumin 2.6 L (3.5-5.1) g/dL Quality VTE Prophylaxis VTE prophylaxis: mechanical ordered Hospitalist MIPS Advance Care Plan I have confirmed that the patient's Advanced Care Plan is present, code status is documented, or surrogate decision maker is listed in patient medical record.: Yes Medication Reconciliation I have utilized all available resources to obtain, update and review the patients current medications (includes all prescriptions, OTC, herbals, cannabis, and nutritional supplements).: Yes
--- NOTE | 2024-09-18 08:12 | P.CONGI_ITS ---
Assessment and Plan Assessment and plan (1) Anemia: Qualifiers: Anemia type: due to chronic kidney disease Chronic kidney disease stage: unspecified stage Qualified Code(s): N18.9 - Chronic kidney disease, unspecified; D63.1 - Anemia in chronic kidney disease Code(s): D64.9 - Anemia, unspecified Status: Acute (2) Acute on chronic renal failure: Qualifiers: Acute renal failure type: unspecified Chronic kidney disease stage: u nspecified stage Qualified Code(s): N17.9 - Acute kidney failure, unspecified; N18.9 - Chronic kidney disease, unspecified Code(s): N17.9 - Acute kidney failure, unspecified; N18.9 - Chronic kidney disease, unspecified Status: Acute (3) NSTEMI (non-ST elevated myocardial infarction): Code(s): I21.4 - Non-ST elevation (NSTEMI) myocardial infarction Status: Acute (4) Transaminitis: Code(s): R74.01 - Elevation of levels of liver transaminase levels Status: Acute Plan 1. Anemia: Last colonoscopy 05/28/2022. No prior EGD Hx. Patient on aspirin and Brilinta was previously on Plavix. NSTEMI this admission with cardiac cath with stent placement yesterday. On admission labs showed BUN 164, creatinine 20.08, Hgb 10, Hct 29, INR 1.3. H/H trending down since admission and today Hgb 7, Hct 22, platelets 182, iron 78, TIBC 208, iron sat 38%. B12 and folate normal. Iron panel checked after patient had already received 1 unit PRBC's. Temporary hemodialysis cath placed on the for hemodialysis. No signs of active GI bleeding including hematemesis, coffee ground emesis, hematochezia or melena. * No iron, B12 or folate deficiency but these labs were checked after the patient received a unit of blood on * primary care team to continue monitoring H/H and transfuse as needed to keep Hgb >8 as recommended by cardiology * Patient is a poor candidate at this time for endoscopic evaluation, no signs of active GI bleeding so there is no indication at this time for emergent scopes * Discussed with the patient and his family that if his H&H remains low following his hospitalization we will consider outpatient endoscopic evaluation 2. Elevated liver transaminase: Liver transaminase trending down since admission showing normal bilirubin and Alk Phos, AST 594-->247 and ALT 465-->272. Acute elevation etiology likely multifactorial including shock liver 2/2 hypotension, acute renal failure, NSTEMI. 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 * Continue to trend 3. Acute of chronic renal failure: On admission BUN 164 and creatinine 20.08. Patient received hemodialysis and BUN 84 and creatinine 8.73. * nephrology following patient 4. NSTEMI: Patient had cardiac catheterization performed yesterday PTCA with JESÚS x1 to left circumflex which had a 99% in stent restenoses of the ostial circumflex. Patient had cardiogenic shock during cardiac cath requiring Kyrie- Synephrine and was started on Levophed. Preserved EF at 60-65%. * Patient being monitored by cardiology Thank you very much for allowing me to share in the care of this very nice patient. This report may have been done utilizing a voice recognition system. Attempts have been made to correct errors. However, there may be uncorrected grammatical, spelling, and recognition errors present. GI Consult Note Consult date/time: 09/18/24 08:12 Reason for consult: Anemia HPI: Derrek Diaz is a 73 year old male with PMSH of HTN, colon polyps, CAD, cardiac stents, HFE carrier, and chronic kidney disease. He presented to the ER 09/16/2024 with complaints of weakness and was admitted for hyperkalemia and acute on chronic renal failure. GI was consulted for anemia. Patient was seen with family members at bedside throughout the entire visit. Patient denies any GI complaints other than mild constipation prior to admission but he believes his decreased stool output was secondary to his decreased PO intake. He denies abdominal pain, nausea, vomiting, bloating, odynophagia, dysphagia, reflux, regurgitation, appetite loss, or weight loss. The patient is having daily BM that are formed and non urgent but vary in size. Denies diarrhea, constipation, hematochezia, melena, fecal incontinence, or rectal pain. Family Hx negative for CRC or IBD. ENDOSCOPY HISTORY: EGD: Patient had never had an EGD COLONOSCOPY: 05/28/[address] Isabel for Hx of colon polyps Findings: Diverticulosis Colon polyps internal hemorrhoids Bx results: Large intestine, transverse colon polyp, polypectomy (A): - Hyperplastic polyp Large intestine, descending colon polyp, polypectomy (B): - Tubular adenoma LABS AND STOOL STUDIES: Labs 09/18/2024: Sodium 135, potassium 4.4, BUN 84, creatinine 8.73, GFR 6, calcium 7.6, magnesium 2.2 WBC 11, Hgb 7, Hct 22, MCV 93, platelets 182, INR 1.3 Total bilirubin 0.5, AST 247, ALT 272, Alkaline Phos 58, albumin 2.6 Iron 78, TIBC 203, iron sat 38, B12 597 and folate 19.7 Labs 09/16/2024: Sodium 135, potassium 6.0, BUN 164, creatinine 20.08, GFR 2, calcium 7.7 WBC 14, Hgb 10, Hct 29, MCV 93, platelets 237, INR 1.3 Total bilirubin 0.6, AST 594, ALT 465, Alkaline Phos 77, albumin 3.7 BNP 8710, lipase 363 IMAGING: No recent GI imaging Review of Systems 2 Constitutional: Constitutional: Reports as per HPI ENT: Reports as per HPI Cardiovascular: Cardiovascular: Reports as per HPI, Denies chest pain and Reports dyspnea Respiratory: Respiratory: Denies cough and Denies dyspnea Gastrointestinal: Gastrointestinal: Reports as per HPI Musculoskeletal: Musculoskeletal: Reports as per HPI Integumentary/Breasts: Skin/Breast: Reports as per HPI Psychiatric: Psychiatric: Reports as per HPI Endocrine: Endocrine: Reports no additional endocrine complaints Hematologic/Lymphatic: Hematologic/Lymphatic: Reports no additional hematologic/lymphatic complaints [facility] Past Medical History Medical History (Updated 09/18/24 @ 11:41 by Cheryl Mccarthy APRN) History of right common carotid artery stent placement Coronary artery disease Adenomatous colon polyp Hypertension Surgical History Surgical History History of percutaneous coronary intervention Social History Social History Smoking packs per day: 2 Smoking cigarettes per day: 40.0 Years smoked: 50 Smoking pack-years: 100.00 Smoking status: Former smoker Tobacco type: cigarettes Second hand tobacco smoke exposure: Yes Smoking end date: 09/06/13 Alcohol intake: current Drinks per week: 2 Alcohol use details: BEERS Substance use: never Substance use type: does not use Do You Feel Safe in your Home?: Yes Lack of Transportation: No Lack of Food: Never True Current Housing: I Have Housing Concerned About Future Housing: No Difficulty Paying Gas/Electric Bills: No Difficulty Paying for Meds: No Currently Unemployed: No Education: High School Diploma/GED Difficulty w/ Childcare or Family Care: No Living arrangements: with family Gender identity (if verbalized by the patient): Male Spiritual care concerns: No Meds Home Medications and Allergies Home Medications ?Medication ?Instructions ?Recorded ?Confirmed ?Type ascorbic acid (vitamin C) 500 mg 500 mg PO DAILY 02/06/20 09/16/24 History tablet folic acid 1 mg tablet 1 mg PO DAILY 02/06/20 09/16/24 History levothyroxine 100 mcg tablet 100 mcg PO DAILY 02/06/20 09/16/24 History (Synthroid) rosuvastatin 5 mg tablet 5 mg PO DAILY 05/22/22 09/16/24 History nifedipine 30 mg tablet,extended 30 mg PO DAILY 09/16/24 09/16/24 History release 24 hr Allergies Allergy/AdvReac Type Severity Reaction Status Date / Time No Known Allergies Allergy Verified 05/28/22 07:46 Vital Signs Vital Signs - 24 hr 09/17/24 08:25 09/17/24 08:33 09/17/24 08:45 Temperature 99.7 F H Pulse Rate 70 69 84 Pulse Rate [Right Radial Palpation] Respiratory Rate 16 Blood Pressure 94/56 L 99/59 L 105/64 Pulse Oximetry 97 Oxygen Delivery Oxygen Flow Rate 09/17/24 09:00 09/17/24 09:15 09/17/24 09:30 Temperature Pulse Rate 83 84 83 Pulse Rate [Right Radial Palpation] Respiratory Rate Blood Pressure 94/64 L 92/58 L 106/65 Pulse Oximetry Oxygen Delivery Oxygen Flow Rate 09/17/24 09:45 09/17/24 10:00 09/17/24 10:00 Temperature Pulse Rate 70 68 71 Pulse Rate [Right Radial Palpation] Respiratory Rate Blood Pressure 94/63 L 96/58 L Pulse Oximetry Oxygen Delivery Oxygen Flow Rate 09/17/24 10:15 09/17/24 10:30 09/17/24 10:45 Temperature Pulse Rate 72 71 72 Pulse Rate [Right Radial Palpation] Respiratory Rate Blood Pressure 108/62 105/63 99/66 L Pulse Oximetry Oxygen Delivery Oxygen Flow Rate 09/17/24 11:00 09/17/24 11:15 09/17/24 11:34 Temperature Pulse Rate 71 74 79 Pulse Rate [Right Radial Palpation] Respiratory Rate Blood Pressure 113/60 96/60 L 111/64 Pulse Oximetry Oxygen Delivery Oxygen Flow Rate 09/17/24 11:49 09/17/24 12:00 09/17/24 14:00 Temperature 97.9 F Pulse Rate 78 85 84 Pulse Rate [Right Radial Palpation] Respiratory Rate 16 Blood Pressure 91/64 L Pulse Oximetry 95 Oxygen Delivery Oxygen Flow Rate 09/17/24 16:00 09/17/24 16:00 09/17/24 19:00 Temperature 98.2 F 96.8 F L Pulse Rate 86 85 95 Pulse Rate [Right Radial Palpation] 95 Respiratory Rate 18 18 Blood Pressure 94/58 L 119/51 L Pulse Oximetry 97 94 Oxygen Delivery Oxygen Flow Rate 09/17/24 19:30 09/17/24 19:45 09/17/24 20:00 Temperature Pulse Rate 95 93 98 Pulse Rate [Right Radial Palpation] 93 Respiratory Rate 16 Blood Pressure 119/51 L 73/51 L 85/49 L Pulse Oximetry 92 Oxygen Delivery Oxygen Flow Rate 09/17/24 20:00 09/17/24 20:00 09/17/24 20:00 Temperature 97.6 F Pulse Rate 100 97 97 Pulse Rate [Right Radial Palpation] Respiratory Rate 18 18 Blood Pressure 85/49 L Pulse Oximetry 96 92 Oxygen Delivery Room Air Oxygen Flow Rate 09/17/24 20:00 09/17/24 20:15 09/17/24 20:30 Temperature Pulse Rate 95 93 Pulse Rate [Right Radial Palpation] 97 93 Respiratory Rate 13 Blood Pressure 92/58 L 92/66 L Pulse Oximetry 92 Oxygen Delivery Oxygen Flow Rate 09/17/24 21:00 09/17/24 21:00 09/17/24 21:05 Temperature Pulse Rate 93 Pulse Rate [Right Radial Palpation] 93 Respiratory Rate 15 18 18 Blood Pressure 88/69 L Pulse Oximetry 94 90 96 Oxygen Delivery Nasal Cannula Nasal Cannula Oxygen Flow Rate 2 2 09/17/24 21:10 09/17/24 21:25 09/17/24 22:00 Temperature 97.6 F 97.6 F Pulse Rate 89 88 81 Pulse Rate [Right Radial Palpation] Respiratory Rate 16 12 Blood Pressure 92/61 L 115/61 Pulse Oximetry 97 96 Oxygen Delivery Oxygen Flow Rate 09/17/24 22:00 09/17/24 22:25 09/17/24 22:30 Temperature 97.7 F Pulse Rate 86 79 82 Pulse Rate [Right Radial Palpation] 93 Respiratory Rate 17 16 Blood Pressure 88/69 L 132/63 137/67 Pulse Oximetry 94 96 Oxygen Delivery Oxygen Flow Rate 09/17/24 22:45 09/17/24 22:50 09/17/24 23:00 Temperature 97.6 F Pulse Rate 78 79 95 Pulse Rate [Right Radial Palpation] 95 Respiratory Rate 16 17 Blood Pressure 106/56 L 106/56 L 123/61 Pulse Oximetry 96 96 Oxygen Delivery Oxygen Flow Rate 09/17/24 23:37 09/18/24 00:00 09/18/24 00:00 Temperature 97.7 F Pulse Rate 75 73 78 Pulse Rate [Right Radial Palpation] 75 Respiratory Rate 19 18 Blood Pressure 128/68 125/59 L Pulse Oximetry 96 95 Oxygen Delivery Oxygen Flow Rate 09/18/24 00:00 09/18/24 00:00 09/18/24 00:07 Temperature Pulse Rate 78 75 Pulse Rate [Right Radial Palpation] 75 Respiratory Rate 18 Blood Pressure 125/59 L Pulse Oximetry 95 Oxygen Delivery Nasal Cannula Oxygen Flow Rate 2 09/18/24 00:39 09/18/24 01:00 09/18/24 01:15 Temperature Pulse Rate 72 73 70 Pulse Rate [Right Radial Palpation] Respiratory Rate Blood Pressure 120/65 117/63 113/66 Pulse Oximetry Oxygen Delivery Oxygen Flow Rate 09/18/24 01:30 09/18/24 01:45 09/18/24 02:00 Temperature Pulse Rate 72 72 72 Pulse Rate [Right Radial Palpation] Respiratory Rate Blood Pressure 105/65 117/62 110/62 Pulse Oximetry Oxygen Delivery Oxygen Flow Rate 09/18/24 02:00 09/18/24 02:00 09/18/24 02:07 Temperature Pulse Rate 72 72 Pulse Rate [Right Radial Palpation] 85 Respiratory Rate 17 Blood Pressure 110/62 Pulse Oximetry 96 Oxygen Delivery Oxygen Flow Rate 09/18/24 02:45 09/18/24 03:00 09/18/24 03:15 Temperature Pulse Rate 71 69 69 Pulse Rate [Right Radial Palpation] 71 69 69 Respiratory Rate 16 16 14 Blood Pressure 95/52 L 107/64 106/64 Pulse Oximetry 97 97 97 Oxygen Delivery Oxygen Flow Rate 09/18/24 03:30 09/18/24 04:00 09/18/24 04:00 Temperature 98.1 F Pulse Rate 72 71 71 Pulse Rate [Right Radial Palpation] 72 Respiratory Rate 13 15 Blood Pressure 129/54 L 110/59 L Pulse Oximetry 97 97 Oxygen Delivery Oxygen Flow Rate 09/18/24 04:00 09/18/24 04:00 09/18/24 04:00 Temperature Pulse Rate 71 71 Pulse Rate [Right Radial Palpation] 71 Respiratory Rate 15 Blood Pressure 110/59 L Pulse Oximetry 97 Oxygen Delivery Nasal Cannula Oxygen Flow Rate 2 09/18/24 05:40 09/18/24 06:00 09/18/24 06:00 Temperature Pulse Rate 84 83 83 Pulse Rate [Right Radial Palpation] 84 Respiratory Rate 19 14 Blood Pressure 95/58 L 115/61 Pulse Oximetry 94 93 Oxygen Delivery Oxygen Flow Rate Exam 2 Const: General: cooperative, healthy appearing, comfortable, no acute distress and well developed Orientation/consciousness: oriented to person, oriented to place, oriented to time and patient oriented x3 HENMT: Head: normal to inspection, normocephalic and atraumatic Mouth: Yes Normal oral and palatal mucosa present and Yes moist mucous membranes Eyes: General: appearance normal, both eyes and all related structures C onjunctivae: conjunctivae normal Sclera: sclerae normal Pupils: Equal, round and reactive pupils present Neck: Neck: normal visual inspection Chest: Chest palpation & inspection: normal inspection of the chest Resp: Effort & Inspection: normal respiratory effort and able to speak in complete sentences Auscultation: clear to auscultation bilaterally Cardio: Jugular venous distension: no JVD Rate: regular rate Rhythm: r egular rhythm Heart sounds: S1 normal heart sound present and S2 normal heart sound present GI: Inspection: normal to inspection GI Palp: Yes Soft to palpation, No Tenderness to palpation present (GI), No Guarding due to palpation present (GI) and Yes No hepatosplenomegaly present Auscultation: normal bowel sounds R ectal Exam: deferred Skin: General skin exam: normal color and no rashes or lesions noted Neuro: General: oriented to person, oriented to place, oriented to time and patient oriented x3 Cranial nerves: Yes Equal, round and reactive pupils present Speech: normal speech Extrem: General: normal to inspection and no clubbing, cyanosis or edema Psych: Appearance: grossly normal and well kempt Affect: normal affect Results Labs 09/18/24 04:15 09/18/24 04:15 Labs: Short CBC 09/17/24 09/18/24 Range/Units 11:44 04:15 WBC 10.6 H (4.5-10.0) K/mm3 Hgb 7.9 L 7.3 L (14.0-18.0) g/dL Hct 22.8 L 21.7 L (42.0-52.0) % Plt Count 182 (150-375) k/mm3 BMP 09/17/24 09/18/24 12:37 04:15 Sodium 137 135 L Potassium 3.5 4.4 Chloride 102 102 Carbon Dioxide 24 23 BUN 62 H D 84 H D Creatinine 7.03 H 8.73 H Glucose 87 104 Calcium 7.6 L 7.6 L Cardiac Enzymes 09/17/24 09/17/24 Range/Units 09:09 12:37 Troponin I 5.050 H* 4.270 H* (0.000-0.034) ng/mL Liver Function 09/18/24 Range/Units 04:15 Total Bilirubin 0.5 (0.2-1.3) mg/dL AST 247 H (17-59) U/L ALT 272 H (6-50) U/L Alkaline Phosphatase 58 (38-126) U/L Albumin 2.6 L (3.5-5.1) g/dL
[2024-09-18] MEDS: LEVOTHYROXINE SODIUM 100 MCG TABLET PO (08:32)
[2024-09-18] MEDS: ROSUVASTATIN 5 MG TABLET PO (08:32)
[2024-09-18] MEDS: ASPIRIN 81 MG CHEWABLE TABLET PO (08:32)
[2024-09-18] MEDS: TICAGRELOR 90 MG TABLET PO ×2 (08:32→20:20)
[2024-09-18] MEDS: PANTOPRAZOLE SODIUM IV 40 MG VIAL IV PUSH ×2 (08:32→20:21)
[2024-09-18 09:12] LABS: Iron 78 ug/dL (49-181)
[2024-09-18 09:22] LABS: Percent Iron Saturation 38 % (20-50)
[2024-09-18 10:12] LABS: Vitamin B12 597.0 pg/mL (239-931)
[2024-09-18] MEDS: SODIUM CHLORIDE 0.9% IV 250 ML 30 ML IV CONT (13:01)
[2024-09-18] MEDS: EPOETIN ALFA-EPBX 20,000 UNITS/ML VIAL 20000 UNITS IV PUSH (13:48)
[2024-09-18] MEDS: SODIUM CHLORIDE 0.9% IV 1,000 ML 999 ML IV CONT (13:48)
--- NOTE | 2024-09-18 14:20 | P.PNNP_ITS ---
Progress Note: A&P Assessment and Plan (1) Acute kidney injury: Code(s): N17.9 - Acute kidney failure, unspecified Status: Acute Assessment and Plan: * etiology not clear * significant decline in renal function/creatinine noted by labs on admission * possibly due to hypotension +/- cardiac event * evaluation to date noted: * renal ultrasound in July 2024 was normal * unable to check urine studies since anuric * due to hyperkalemia, severe acidosis, and possible uremia, initiated on dialysis (09/16) * s/p temporary femoral line by Surgery * HD day before yesterday and yesterday * HD today * follow trend of electrolytes, acidosis, and azotemia * follow trend of repeat labs and UOP to assess for potential recovery (2) Chronic kidney disease: Code(s): N18.9 - Chronic kidney disease, unspecified Status: Chronic Assessment and Plan: * specifics are not clear... * according to patient, last testing ~ 1 month ago noted his kidney function at 40% * last creatinine here in March 2024 was 1.28mg/dl * attempting to obtain records from primary acid conditioner (Dr. Robert Shultz) regarding baseline kidney function and what evaluation has been done * records still pending (3) NSTEMI (non-ST elevated myocardial infarction): Code(s): I21.4 - Non-ST elevation (NSTEMI) myocardial infarction Status: Acute Assessment and Plan: * elevated troponins and admission EKG noted * s/p heparin gtt * Cardiology following * s/p cardiac catheterization (09/17) with findings/interventions noted: * left main coronary artery is widely patent without any significant obstructive disease; prior stent in left main from 03/2024 is widely patent * LAD and the diagonal branches have mild luminal irregularities without any significant obstructive angiographic disease; prior stent in the proximal LAD from 03/2024 is widely patent * left circuflex with 99% instent restenoses (stent was placed in 03/2024) of ostial LCX; there is 60% calcified stenosis in mid LCX; distal LCX is very tiny and diffusely diseased; OM branches have minor luminal irregularities; following initial diagnostic image of the left system the flow in LCX de creased from RHODA 3 to RHODA 1 due to significant ostial LCX stenosis * proximal RCA has 30% stenosis; Right dominant circulation; distal RCA, RPDA, and RPLA appear diffusely thready without any focal stenosis due to spasm * status post successful IVUS guided PCI to 99% InStent restenoses of ostial LCX (culprit for patient's presentation) with 3.5 mm X 18 mm [employer] bee [place] followed by post-dilation with a 3.5 mm X 15 mm NC balloon, KBI with 3.5 mm X 15 mm NC balloon in LCX and 3.5 mm X 15 mm NC balloon in LAD, and final POT with 4.0 mm X 15 mm NC balloon balloon * on ASA and ticagrelor * on statin * start BB when BP allows * continue medical management (4) Hyperkalemia: Code(s): E87.5 - Hyperkalemia Status: Acute Assessment and Plan: * resolved with [employer]/dialysis * noted on admission * resistant to medical therapy with ER interventions * follow trend of K+ (5) Metabolic acidosis: Code(s): E87.20 - Acidosis, unspecified Status: Acute Assessment and Plan: * improvement noted with dialysis * presumably due to severity of ANNA MARIE * lactic acid normal (6) Anemia: Qualifiers: Anemia type: due to chronic kidney disease Chronic kidney disease stage: unspecified stage Qualified Code(s): N18.9 - Chronic kidney disease, unspecified; D63.1 - Anemia in chronic kidney disease Code(s): D64.9 - Anemia, unspecified Status: Acute Assessment and Plan: * presumably related to ANNA MARIE +/- CKD and acute illness * PRBC transfusion per protocol * Epogen with HD * anemia studies with adequate iron stores; b12 and folate acceptable * seen by GI with recommendations noted * no plans for EGD at this time * follow trend of H/H (7) Hypertension: Code(s): I10 - Essential (primary) hypertension Status: Chronic Assessment and Plan: * soft since admissino * on low dose levophed gtt at this time * wean as tolerated * follow trend of hemodynamics (8) Transaminitis: Code(s): R74.01 - Elevation of levels of liver transaminase levels Status: Acute Assessment and Plan: * as noted by admission labs * presumably due cardiac event and subsequent hypoperfusion (?) * follow trend Will continue to follow. Subjective Date/time seen: 09/18/24 14:20 Interval history: Follow-up for acute kidney injury/acute renal failure on chronic kidney disease. Tolerating dialysis treatment at the time of my visit (seen on HD at 2:10pm); s/p cardiac catheterization yesterday afternoon with findings/intervention noted; transferred to ICU post-procedure due to hypotension requiring vasopressor therapy; s/p PRBC transfusion as well; no further chest pain since cardiac cath and PCI yesterday. Exam Narrative: General: elderly but WD/WN male in NAD Heart: normal S1 and S2; no rub Lungs: clear to auscultation Abdomen: soft, nontender, nondistended, positive bowel sounds Extremities: no cyanosis or clubbing; no edema Skin: warm and intact Objective Data Vital Signs Vital Signs: Vital Signs Temp Pulse Pulse Resp BP Pulse Ox O2 Del Method 09/18/24 14:15 83 96/59 L 09/18/24 14:00 85 14 100/62 94 09/18/24 14:00 85 09/18/24 14:00 83 96/59 L 09/18/24 14:00 98.0 F 84 15 94/59 L 95 09/18/24 14:00 84 94/59 L 09/18/24 13:46 84 87/53 L 09/18/24 13:45 85 87/53 L 09/18/24 13:29 83 92/61 L 09/18/24 13:15 98.0 F 83 17 92/61 L 95 09/18/24 13:09 85 87/47 L 09/18/24 13:02 86 87/47 L 09/18/24 12:45 98.0 F 87 18 95/52 L 94 09/18/24 12:43 97.7 F 86 16 103/54 L 93 09/18/24 12:00 86 09/18/24 12:00 97.7 F 86 13 95/52 L 95 09/18/24 12:00 97.7 F 88 86 18 95/52 L 95 09/18/24 12:00 95 Room Air 09/18/24 12:00 88 101/53 L 09/18/24 11:30 86 107/61 09/18/24 10:00 92 14 101/62 94 09/18/24 10:00 84 09/18/24 08:46 85 120/57 L 09/18/24 08:00 98.4 F 83 16 105/62 93 09/18/24 08:00 84 09/18/24 08:00 82 14 93 Room Air 09/18/24 08:00 84 09/18/24 08:00 86 105/62 09/18/24 06:00 83 14 115/61 93 09/18/24 06:00 83 09/18/24 05:40 84 84 19 95/58 L 94 09/18/24 04:00 71 09/18/24 04:00 71 15 97 Nasal Cannula 09/18/24 04:00 71 110/59 L 09/18/24 04:00 71 09/18/24 04:00 98.1 F 71 15 110/59 L 97 09/18/24 03:30 72 72 13 129/54 L 97 09/18/24 03:15 69 69 14 106/64 97 09/18/24 03:00 69 69 16 107/64 97 09/18/24 02:45 71 71 16 95/52 L 97 09/18/24 02:07 85 09/18/24 02:00 72 09/18/24 02:00 72 17 110/62 96 09/18/24 02:00 72 110/62 09/18/24 01:45 72 117/62 09/18/24 01:30 72 105/65 09/18/24 01:15 70 113/66 09/18/24 01:00 73 117/63 09/18/24 00:39 72 120/65 09/18/24 00:07 75 09/18/24 00:00 75 125/59 L 09/18/24 00:00 78 18 95 Nasal Cannula 09/18/24 00:00 97.7 F 78 18 125/59 L 95 09/18/24 00:00 73 09/17/24 23:37 75 75 19 128/68 96 09/17/24 23:00 95 95 17 123/61 96 09/17/24 22:50 97.6 F 79 16 106/56 L 96 09/17/24 22:45 78 106/56 L 09/17/24 22:30 82 137/67 09/17/24 22:25 97.7 F 79 16 132/63 96 09/17/24 22:00 86 93 17 88/69 L 94 09/17/24 22:00 81 09/17/24 21:25 97.6 F 88 12 115/61 96 09/17/24 21:10 97.6 F 89 16 92/61 L 97 09/17/24 21:05 18 96 Nasal Cannula 09/17/24 21:00 18 90 Nasal Cannula 09/17/24 21:00 93 93 15 88/69 L 94 09/17/24 20:30 93 93 13 92/66 L 92 09/17/24 20:15 95 92/58 L 09/17/24 20:00 97 09/17/24 20:00 97.6 F 97 18 85/49 L 92 09/17/24 20:00 97 18 96 Room Air 09/17/24 20:00 100 09/17/24 20:00 98 85/49 L 09/17/24 19:45 93 93 16 73/51 L 92 09/17/24 19:30 95 119/51 L 09/17/24 19:00 96.8 F L 95 95 18 119/51 L 94 Intake/Output Intake/Output: Intake & Output 09/15/24 09/16/24 09/17/24 09/18/24 23:59 23:59 23:59 23:59 Intake Total 1272.3 691.1 1585.9 Output Total 0 0 1750 Balance 1272.3 691.1 -164.1 Meds/Results Medications: Active Medications Generic Name Dose Route Start Last Admin Trade Name Freq PRN Reason Stop Dose Admin Acetaminophen 650 mg 09/16/24 12:39 Acetaminophen 325 Mg Tablet PO Q4H PRN Mild Pain (1-3) Al Hydrox/Mg Hydrox/Simethicone 30 ml 09/16/24 12:39 Mag Hydrox/Al Hydrox/Simeth 30 Ml Udc PO Q6H PRN Indigestion Aspirin 81 mg 09/17/24 08:00 09/18/24 08:32 Aspirin 81 Mg Chewable Tablet PO 81 mg DAILY@0800 ROSALINDA Administration Albumin Human 50 mls @ 999 mls/hr 09/16/24 11:49 Albutein IVPB 10/16/24 11:48 Q10M PRN HYPOTENSION Norepinephrine Bitartrate 8 mg in 250 mls @ 0 mls/hr 09/17/24 19:30 09/18/24 17:32 Levophed 8 Mg/D5w 250 Ml IV CONT 0 mcg/min .Q0M ROSALINDA 0 mls/hr Titration Protocol 0 MCG/MIN Levothyroxine Sodium 100 mcg 09/17/24 09:00 09/18/24 08:32 Levothyroxine Sodium 100 Mcg Tablet PO 100 mcg DAILY ROSALINDA Administration Nitroglycerin 0.4 mg 09/16/24 12:39 09/17/24 12:41 Nitroglycerin Sl 0.4 Mg Tablet SUBLINGUAL 0.4 mg Q5MIN PRN Administration Chest Pain Ondansetron HCl 4 mg 09/16/24 09:08 09/17/24 19:35 Ondansetron Inj 4 Mg/2 Ml Vial IV PUSH 4 mg Q4H PRN Administration Nausea Pantoprazole Sodium 40 mg 09/18/24 09:00 09/18/24 08:32 Pantoprazole Sodium Iv 40 Mg Vial IV PUSH 40 mg Q12HR ROSALINDA Administration Perflutren Lipid Microsphere 0 ml 09/16/24 13:50 Perflutren Lipid Microspheres 1.5 Ml Vial Diluted To 10 Ml Total Volume IV PUSH 09/19/24 13:50 ONCE PRN adequate visualization Protocol Polyethylene Glycol 17 gm 09/18/24 09:00 09/18/24 08:32 Polyethylene Glycol 3350 17 Gm Powd.Pack PO 17 gm QAM ROSALINDA Administration Rosuvastatin Calcium 5 mg 09/17/24 09:00 09/18/24 08:32 Rosuvastatin 5 Mg Tablet PO 5 mg DAILY ROSALINDA Administration Senna/Docusate Sodium 1 tab 09/18/24 21:00 Senna/Docusate Sodium Tablet PO HS ROSALINDA Ticagrelor 90 mg 09/18/24 09:00 09/18/24 08:32 Ticagrelor 90 Mg Tablet PO 90 mg Q12HR ROSALINDA Administration Radiology Results: ITS Impressions Chest X-Ray 09/18/24 08:21 Impression: Worsening groundglass pulmonary disease in the right lung. Correlate for asymmetric pulmonary edema versus multilobar pneumonia. Labs Labs: Laboratory Tests 09/18/24 04:15 WBC 10.6 H Hgb 7.3 L Hct 21.7 L Plt Count 182 Sodium 135 L Potassium 4.4 Chloride 102 Carbon Dioxide 23 Anion Gap 10 BUN 84 H D Creatinine 8.73 H Estim Creat Clear Calc 7 Estimated GFR 6 L Glucose 104 Calcium 7.6 L Magnesium 2.2 Iron 78 TIBC 203 L % Saturation 38 Total Bilirubin 0.5 AST 247 H ALT 272 H Alkaline Phosphatase 58 Total Protein 5.0 L Albumin 2.6 L Vitamin B12 597.0 Folate 19.7
--- NOTE | 2024-09-18 15:01 | P.PNIM_ITS ---
Progress Note: A&P Assessment and Plan (1) NSTEMI (non-ST elevated myocardial infarction): Code(s): I21.4 - Non-ST elevation (NSTEMI) myocardial infarction Status: Acute (2) History of right common carotid artery stent placement: Code(s): Z98.890 - Other specified postprocedural states; Z95.828 - Presence of other vascular implants and grafts Status: Acute (3) Coronary artery disease: Code(s): I25.10 - Atherosclerotic heart disease of [place] coronary artery without angina pectoris Status: Acute (4) Hypertension: Code(s): I10 - Essential (primary) hypertension Status: Acute (5) Volume overload: Code(s): E87.70 - Fluid overload, unspecified Status: Acute (6) Transaminitis: Code(s): R74.01 - Elevation of levels of liver transaminase levels Status: Acute (7) Acute on chronic renal failure: Qualifiers: Acute renal failure type: unspecified Chronic kidney disease stage: unspecified stage Qualified Code(s): N17.9 - Acute kidney failure, unspecified; N18.9 - Chronic kidney disease, unspecified Code(s): N17.9 - Acute kidney failure, unspecified; N18.9 - Chronic kidney disease, unspecified Status: Acute (8) Anemia: Qualifiers: Anemia type: due to chronic kidney disease Chronic kidney disease stage: unspecified stage Qualified Code(s): N18.9 - Chronic kidney disease, unspecified; D63.1 - Anemia in chronic kidney disease Code(s): D64.9 - Anemia, unspecified Status: Acute Plan Hospital course: 73-year-old male with complex history including coronary artery disease status post 2 stents in 2024 at [facility] per the patient, carotid stenosis status post right common carotid artery stent placement [facility] 2024, hypertension, hypertension, CKD, prior tobacco dependence quit smoking in 2014. Primary tape calender is Dr. Robert Shultz, unknown CKD baseline. Reportedly the patient was diagnosed with renal failure 2 weeks prior to admission. He has also had concurrent loss of appetite, weakness and fatigue along with muscle cramps in lower extremities. He presents to [facility] on 09/16/2024 with chest pain. He describes it as sharp however sometimes tight. In the ER he received nitroglycerin which improved his pain. Denied palpitations shortness of breath or cough. Unfortunately on presentation he was in severe renal failure with hyperkalemia and a BNP of 8710 with elevated trop onin at 0.2. EKG did not demonstrate ST elevations. Nephrology consulted. Unclear etiology for the acute kidney failure however a left-sided femoral vein Yuriy catheter was placed any received dialysis on 09/16 and 09/17. Hemoglobin in 2023 10.6, 12.1 in March of 2024, on admission 9.8 dropping to 7.5 on 09/17/2024. No hemoptysis or melena/hematochezia however nursing staff noted he was exsanguinating around the insertion site of the femoral catheter. Pressure dressing was applied and repeat hemoglobin 7.9. Troponin peaked at 5.05 on 09/17 at 9:00 a.m. repeat at noon coming down to 4.2. Subsequently taken to cardiac catheterization lab on 09/17/2024. Status post PCI to 99% ISR of ostial LCX (prior stent placed in 03/2024) with 3.5 mm x 18 mm [employer] [place] JESÚS. He is at high risk for recurrent restenoses. Cardiology recommends dual antiplatelet therapy with aspirin 81 mg p.o. daily and ticagrelor 90 mg b.i.d. for longer than 1 year with anemia and any bleeding issues into consideration. -Goal hemoglobin greater than 8. Has received 2 units PRBC. Continue to check daily more often if necessary. -cardiogenic shock during catheterization, norepinephrine started. Wean norepinephrine keeping map greater than 60 -Hold all antihypertensive meds. Start Metoprolol 12.5 mg p.o. b.i.d. when SBP greater than 110 mm Hg off Levophed -Check and replace electrolytes to keep potassium greater than 4 and magnesium greater than 2 -Continue Crestor 5 mg daily-started yesterday. Recheck of LFTs showed they are down trending -gastroenterology consultation completed. Poor candidate for endoscopic evaluation. No signs of active GI bleeding. Follow-up in the outpatient setting and consider outpatient endoscopic evaluation. -nephrology following. anuric acute renal failure on CKD. Receiving dialysis again on 09/18/2024. Scant bibasilar crackles but no shortness of breath and he is saturating well on room air. Continue to monitor urine output if any and daily renal function. ----- Stable in ICU. SCDs only considering anemia. Heart healthy and renal dialysis diet. Continue daily labs including CMP CBC magnesium phosphorus. Goal hemoglobin greater than 8. Holding antihypertensives. Continue norepinephrine and wean per Cardiology recommendations. Protonix 40 mg IV b.i.d.. Continue aspirin and ticagrelor. Patient wishes to be full code. Currently stable. Subjective Date/time seen: 09/18/24 15:01 Interval history: Patient has remained in ICU today status post catheterization on 09/17/2024. Has been stable on Levophed. Denies any complaints including shortness of breath, cough, fever, chest pain, nausea or vomiting. Reports not having any urine output. Currently receiving dialysis. Review of Systems Review of Systems: All systems reviewed & are unremarkable except as noted in HPI and below (Subjective) Exam Const: General: comfortable and no acute distress Eyes: Pupils: Equal, round and reactive pupils present Neck: Neck: supple Resp: Effort & Inspection: normal respiratory effort Other: Scant crackles bibasilar Cardio: Rate: regular rate Rhythm: regular rhythm Heart sounds: no gallops, no murmurs and no rubs GI: Inspection: non-distended GI Palp: Yes Soft to palpation Neuro: Motor exam (neuro): 5/5 motor strength present throughout Extrem: General: no edema Objective Data Vital Signs Vital Signs: Vital Signs - 24 hr 09/17/24 16:00 09/17/24 16:00 09/17/24 19:00 Temperature 98.2 F 96.8 F L Pulse Rate 86 85 95 Pulse Rate [Right Radial Palpation] 95 Respiratory Rate 18 18 Blood Pressure 94/58 L 119/51 L Pulse Oximetry 97 94 Oxygen Delivery Oxygen Flow Rate 09/17/24 19:30 09/17/24 19:45 09/17/24 20:00 Temperature Pulse Rate 95 93 98 Pulse Rate [Right Radial Palpation] 93 Respiratory Rate 16 Blood Pressure 119/51 L 73/51 L 85/49 L Pulse Oximetry 92 Oxygen Delivery Oxygen Flow Rate 09/17/24 20:00 09/17/24 20:00 09/17/24 20:00 Temperature 97.6 F Pulse Rate 100 97 97 Pulse Rate [Right Radial Palpation] Respiratory Rate 18 18 Blood Pressure 85/49 L Pulse Oximetry 96 92 Oxygen Delivery Room Air Oxygen Flow Rate 09/17/24 20:00 09/17/24 20:15 09/17/24 20:30 Temperature Pulse Rate 95 93 Pulse Rate [Right Radial Palpation] 97 93 Respiratory Rate 13 Blood Pressure 92/58 L 92/66 L Pulse Oximetry 92 Oxygen Delivery Oxygen Flow Rate 09/17/24 21:00 09/17/24 21:00 09/17/24 21:05 Temperature Pulse Rate 93 Pulse Rate [Right Radial Palpation] 93 Respiratory Rate 15 18 18 Blood Pressure 88/69 L Pulse Oximetry 94 90 96 Oxygen Delivery Nasal Cannula Nasal Cannula Oxygen Flow Rate 2 2 09/17/24 21:10 09/17/24 21:25 09/17/24 22:00 Temperature 97.6 F 97.6 F Pulse Rate 89 88 81 Pulse Rate [Right Radial Palpation] Respiratory Rate 16 12 Blood Pressure 92/61 L 115/61 Pulse Oximetry 97 96 Oxygen Delivery Oxygen Flow Rate 09/17/24 22:00 09/17/24 22:25 09/17/24 22:30 Temperature 97.7 F Pulse Rate 86 79 82 Pulse Rate [Right Radial Palpation] 93 Respiratory Rate 17 16 Blood Pressure 88/69 L 132/63 137/67 Pulse Oximetry 94 96 Oxygen Delivery Oxygen Flow Rate 09/17/24 22:45 09/17/24 22:50 09/17/24 23:00 Temperature 97.6 F Pulse Rate 78 79 95 Pulse Rate [Right Radial Palpation] 95 Respiratory Rate 16 17 Blood Pressure 106/56 L 106/56 L 123/61 Pulse Oximetry 96 96 Oxygen Delivery Oxygen Flow Rate 09/17/24 23:37 09/18/24 00:00 09/18/24 00:00 Temperature 97.7 F Pulse Rate 75 73 78 Pulse Rate [Right Radial Palpation] 75 Respiratory Rate 19 18 Blood Pressure 128/68 125/59 L Pulse Oximetry 96 95 Oxygen Delivery Oxygen Flow Rate 09/18/24 00:00 09/18/24 00:00 09/18/24 00:07 Temperature Pulse Rate 78 75 Pulse Rate [Right Radial Palpation] 75 Respiratory Rate 18 Blood Pressure 125/59 L Pulse Oximetry 95 Oxygen Delivery Nasal Cannula Oxygen Flow Rate 2 09/18/24 00:39 09/18/24 01:00 09/18/24 01:15 Temperature Pulse Rate 72 73 70 Pulse Rate [Right Radial Palpation] Respiratory Rate Blood Pressure 120/65 117/63 113/66 Pulse Oximetry Oxygen Delivery Oxygen Flow Rate 09/18/24 01:30 09/18/24 01:45 09/18/24 02:00 Temperature Pulse Rate 72 72 72 Pulse Rate [Right Radial Palpation] Respiratory Rate Blood Pressure 105/65 117/62 110/62 Pulse Oximetry Oxygen Delivery Oxygen Flow Rate 09/18/24 02:00 09/18/24 02:00 09/18/24 02:07 Temperature Pulse Rate 72 72 Pulse Rate [Right Radial Palpation] 85 Respiratory Rate 17 Blood Pressure 110/62 Pulse Oximetry 96 Oxygen Delivery Oxygen Flow Rate 09/18/24 02:45 09/18/24 03:00 09/18/24 03:15 Temperature Pulse Rate 71 69 69 Pulse Rate [Right Radial Palpation] 71 69 69 Respiratory Rate 16 16 14 Blood Pressure 95/52 L 107/64 106/64 Pulse Oximetry 97 97 97 Oxygen Delivery Oxygen Flow Rate 09/18/24 03:30 09/18/24 04:00 09/18/24 04:00 Temperature 98.1 F Pulse Rate 72 71 71 Pulse Rate [Right Radial Palpation] 72 Respiratory Rate 13 15 Blood Pressure 129/54 L 110/59 L Pulse Oximetry 97 97 Oxygen Delivery Oxygen Flow Rate 09/18/24 04:00 09/18/24 04:00 09/18/24 04:00 Temperature Pulse Rate 71 71 Pulse Rate [Right Radial Palpation] 71 Respiratory Rate 15 Blood Pressure 110/59 L Pulse Oximetry 97 Oxygen Delivery Nasal Cannula Oxygen Flow Rate 2 09/18/24 05:40 09/18/24 06:00 09/18/24 06:00 Temperature Pulse Rate 84 83 83 Pulse Rate [Right Radial Palpation] 84 Respiratory Rate 19 14 Blood Pressure 95/58 L 115/61 Pulse Oximetry 94 93 Oxygen Delivery Oxygen Flow Rate 09/18/24 08:00 09/18/24 08:00 09/18/24 08:00 Temperature Pulse Rate 86 82 Pulse Rate [Right Radial Palpation] 84 Respiratory Rate 14 Blood Pressure 105/62 Pulse Oximetry 93 Oxygen Delivery Room Air Oxygen Flow Rate 09/18/24 08:00 09/18/24 08:00 09/18/24 08:46 Temperature 98.4 F Pulse Rate 84 83 85 Pulse Rate [Right Radial Palpation] Respiratory Rate 16 Blood Pressure 105/62 120/57 L Pulse Oximetry 93 Oxygen Delivery Oxygen Flow Rate 09/18/24 10:00 09/18/24 10:00 09/18/24 11:30 Temperature Pulse Rate 84 92 86 Pulse Rate [Right Radial Palpation] Respiratory Rate 14 Blood Pressure 101/62 107/61 Pulse Oximetry 94 Oxygen Delivery Oxygen Flow Rate 09/18/24 12:00 09/18/24 12:00 09/18/24 12:00 Temperature 97.7 F Pulse Rate 88 82 88 Pulse Rate [Right Radial Palpation] 86 Respiratory Rate 14 18 Blood Pressure 101/53 L 95/52 L Pulse Oximetry 93 95 Oxygen Delivery Room Air Oxygen Flow Rate 09/18/24 12:00 09/18/24 12:00 09/18/24 12:43 Temperature 97.7 F 97.7 F Pulse Rate 86 86 86 Pulse Rate [Right Radial Palpation] Respiratory Rate 13 16 Blood Pressure 95/52 L 103/54 L Pulse Oximetry 95 93 Oxygen Delivery Oxygen Flow Rate 09/18/24 12:45 09/18/24 13:02 09/18/24 13:09 Temperature 98.0 F Pulse Rate 87 86 85 Pulse Rate [Right Radial Palpation] Respiratory Rate 18 Blood Pressure 95/52 L 87/47 L 87/47 L Pulse Oximetry 94 Oxygen Delivery Oxygen Flow Rate 09/18/24 13:15 09/18/24 13:29 09/18/24 13:45 Temperature 98.0 F Pulse Rate 83 83 85 Pulse Rate [Right Radial Palpation] Respiratory Rate 17 Blood Pressure 92/61 L 92/61 L 87/53 L Pulse Oximetry 95 Oxygen Delivery Oxygen Flow Rate 09/18/24 13:46 09/18/24 14:00 09/18/24 14:00 Temperature 98.0 F Pulse Rate 84 84 84 Pulse Rate [Right Radial Palpation] Respiratory Rate 15 Blood Pressure 87/53 L 94/59 L 94/59 L Pulse Oximetry 95 Oxygen Delivery Oxygen Flow Rate 09/18/24 14:00 09/18/24 14:00 09/18/24 14:00 Temperature Pulse Rate 83 85 85 Pulse Rate [Right Radial Palpation] Respiratory Rate 14 Blood Pressure 96/59 L 100/62 Pulse Oximetry 94 Oxygen Delivery Oxygen Flow Rate 09/18/24 14:15 09/18/24 14:30 09/18/24 14:42 Temperature 97.8 F Pulse Rate 83 86 86 Pulse Rate [Right Radial Palpation] Respiratory Rate 16 Blood Pressure 96/59 L 107/56 L 102/69 Pulse Oximetry 96 Oxygen Delivery Oxygen Flow Rate 09/18/24 14:45 Temperature Pulse Rate 83 Pulse Rate [Right Radial Palpation] Respiratory Rate Blood Pressure 100/62 Pulse Oximetry Oxygen Delivery Oxygen Flow Rate Intake/Output Intake/Output: Intake & Output 09/15/24 09/16/24 09/17/24 09/18/24 23:59 23:59 23:59 23:59 Intake Total 1272.3 691.1 1208.2 Output Total 0 0 Balance 1272.3 691.1 1208.2 Meds/Results Medications: Active Medications Generic Name Dose Route Start Last Admin Trade Name Freq PRN Reason Stop Dose Admin Acetaminophen 650 mg 09/16/24 12:39 Acetaminophen 325 Mg Tablet PO Q4H PRN Mild Pain (1-3) Al Hydrox/Mg Hydrox/Simethicone 30 ml 09/16/24 12:39 Mag Hydrox/Al Hydrox/Simeth 30 Ml Udc PO Q6H PRN Indigestion Aspirin 81 mg 09/17/24 08:00 09/18/24 08:32 Aspirin 81 Mg Chewable Tablet PO 81 mg DAILY@0800 ROSALINDA Administration Albumin Human 50 mls @ 999 mls/hr 09/16/24 11:49 Albutein IVPB 10/16/24 11:48 Q10M PRN HYPOTENSION Norepinephrine Bitartrate 8 mg in 250 mls @ 5.625 mls/hr 09/17/24 19:30 09/18/24 14:00 Levophed 8 Mg/D5w 250 Ml IV CONT 3 mcg/min .Q24H ROSALINDA 5.63 mls/hr Titration Protocol 3 MCG/MIN Sodium Chloride 250 mls @ 30 mls/hr 09/18/24 07:13 09/18/24 13:01 Normal Saline Iv IV CONT 09/18/24 15:32 30 mls/hr .Q8H20M STA Administration Levothyroxine Sodium 100 mcg 09/17/24 09:00 09/18/24 08:32 Levothyroxine Sodium 100 Mcg Tablet PO 100 mcg DAILY ROSALINDA Administration Nitroglycerin 0.4 mg 09/16/24 12:39 09/17/24 12:41 Nitroglycerin Sl 0.4 Mg Tablet SUBLINGUAL 0.4 mg Q5MIN PRN Administration Chest Pain Ondansetron HCl 4 mg 09/16/24 09:08 09/17/24 19:35 Ondansetron Inj 4 Mg/2 Ml Vial IV PUSH 4 mg Q4H PRN Administration Nausea Pantoprazole Sodium 40 mg 09/18/24 09:00 09/18/24 08:32 Pantoprazole Sodium Iv 40 Mg Vial IV PUSH 40 mg Q12HR ROSALINDA Administration Perflutren Lipid Microsphere 0 ml 09/16/24 13:50 Perflutren Lipid Microspheres 1.5 Ml Vial Diluted To 10 Ml Total Volume IV PUSH 09/19/24 13:50 ONCE PRN adequate visualization Protocol Polyethylene Glycol 17 gm 09/18/24 09:00 09/18/24 08:32 Polyethylene Glycol 3350 17 Gm Powd.Pack PO 17 gm QAM ROSALINDA Administration Rosuvastatin Calcium 5 mg 09/17/24 09:00 09/18/24 08:32 Rosuvastatin 5 Mg Tablet PO 5 mg DAILY ROSALINDA Administration Senna/Docusate Sodium 1 tab 09/18/24 21:00 Senna/Docusate Sodium Tablet PO HS ROSALINDA Ticagrelor 90 mg 09/18/24 09:00 09/18/24 08:32 Ticagrelor 90 Mg Tablet PO 90 mg Q12HR ROSALINDA Administration Radiology Results: ITS Impressions Chest X-Ray 09/18/24 08:21 Impression: Worsening groundglass pulmonary disease in the right lung. Correlate for asymmetric pulmonary edema versus multilobar pneumonia. Labs Labs: Laboratory Results - last 24 hr 09/17/24 09/17/24 09/17/24 17:40 17:59 18:24 WBC RBC Hgb Hct MCV MCH MCHC RDW Plt Count MPV Immature Gran % (Auto) Neut % (Auto) Lymph % (Auto) [place]ady % (Auto) Eos % (Auto) Baso % (Auto) Lymph # (Auto) [place]ady # (Auto) Eos # (Auto) Baso # (Auto) Abs Immat Gran (auto) Absolute Neuts (auto) Absolute Nucleated RBC Nucleated RBC % APTT Activ Coag Time Ka[place] 216 H 239 H 326 H Sodium Potassium Chloride Carbon Dioxide Anion Gap BUN Creatinine Estim Creat Clear Calc Estimated GFR Glucose Calcium Magnesium Iron TIBC % Saturation Total Bilirubin AST ALT Alkaline Phosphatase Total Protein Albumin Vitamin B12 Folate Blood Type Antibody Screen Crossmatch 09/17/24 09/17/24 09/17/24 18:30 19:48 23:59 WBC RBC Hgb Hct MCV MCH MCHC RDW Plt Count MPV Immature Gran % (Auto) Neut % (Auto) Lymph % (Auto) [place] % (Auto) Eos % (Auto) Baso % (Auto) Lymph # (Auto) [place]ady # (Auto) Eos # (Auto) Baso # (Auto) Abs Immat Gran (auto) Absolute Neuts (auto) Absolute Nucleated RBC Nucleated RBC % APTT > 200.0 H* 60.2 H Activ Coag Time Kaolin Sodium Potassium Chloride Carbon Dioxide Anion Gap BUN Creatinine Estim Creat Clear Calc Estimated GFR Glucose Calcium Magnesium Iron TIBC % Saturation Total Bilirubin AST ALT Alkaline Phosphatase Total Protein Albumin Vitamin B12 Folate Blood Type A Negative Antibody Screen Negative Crossmatch See Detail 09/18/24 09/18/24 09/18/24 02:03 04:15 08:45 WBC 10.6 H RBC 2.34 L Hgb 7.3 L Hct 21.7 L MCV 92.7 MCH 31.2 MCHC 33.6 RDW 14.1 Plt Count 182 MPV 10.9 H Immature Gran % (Auto) 0.9 H Neut % (Auto) 81.9 H Lymph % (Auto) 6.6 L [place] % (Auto) 9.8 H Eos % (Auto) 0.3 Baso % (Auto) 0.5 Lymph # (Auto) 0.70 L [place] # (Auto) 1.0 H Eos # (Auto) 0.0 Baso # (Auto) 0.1 Abs Immat Gran (auto) 0.10 H Absolute Neuts (auto) 8.7 H Absolute Nucleated RBC 0.000 Nucleated RBC % 0.0 APTT 35.3 Activ Coag Time Kaolin Sodium 135 L Potassium 4.4 Chloride 102 Carbon Dioxide 23 Anion Gap 10 BUN 84 H D Creatinine 8.73 H Estim Creat Clear Calc 7 Estimated GFR 6 L Glucose 104 Calcium 7.6 L Magnesium 2.2 Iron 78 TIBC 203 L % Saturation 38 Total Bilirubin 0.5 AST 247 H ALT 272 H Alkaline Phosphatase 58 Total Protein 5.0 L Albumin 2.6 L Vitamin B12 597.0 Folate 19.7 Blood Type Antibody Screen Crossmatch
[2024-09-18 17:59] LABS: Hematocrit 26.0 % (42.0-52.0); Hemoglobin 8.7 g/dL (14.0-18.0)
--- NOTE | 2024-09-18 18:02 | WPDPN ---
Progress Note: A&P Assessment and Plan (1) NSTEMI (non-ST elevated myocardial infarction): Code(s): I21.4 - Non-ST elevation (NSTEMI) myocardial infarction Status: Acute Assessment and Plan: Status post percutaneous intervention and placement cardiac stent by Interventional Cardiology. Patient is now on dual antiplatelet therapy. (2) Acute on chronic renal failure: Qualifiers: Acute renal failure type: unspecified Chronic kidney disease stage: unspecified stage Qualified Code(s): N17.9 - Acute kidney failure, unspecified; N18.9 - Chronic kidney disease, unspecified Code(s): N17.9 - Acute kidney failure, unspecified; N18.9 - Chronic kidney disease, unspecified Status: Acute Assessment and Plan: Presently dialyzing with temporary non tunneled left femoral hemodialysis catheter. If he needs further hemodialysis and the left femoral hemodialysis catheter is not functioning well or been into long then another temporary catheter can be placed over the weekend by the facilities engineering manager if the patient remains in the ICU. Eventually the patient may need a long-term tunneled hemodialysis catheter and it would be optimal to save his subclavian and internal jugular veins for tunneled hemodialysis catheter access. Surgery will continue to follow peripherally. Nephrology can contact us when they feel a tunneled hemodialysis catheter is needed after the patient is stabilized. Subjective Date/time seen: 09/18/24 18:02 Interval history: Patient remains in the ICU after cardiac event with chest pain and percutaneous intervention with placement of cardiac stent as per Interventional Cardiology yesterday. A temporary non tunneled Yuriy hemodialysis catheter placed in the left femoral vein 2 days ago for emergent hemodialysis. He has been getting his hemodialysis treatments. Nurses state that there started have some problems with venous high pressures and the hemodialysis catheter. Yesterday the patient had some bleeding from the groin catheter site as he was anticoagulated for his chest pain prior to his cardiac intervention. Today's not had any bleeding issues as IV heparin was not restarted after his cardiac catheterization. Exam Skin: Other: Left groin Yuriy hemodialysis catheter in place. Slight bruising around the area. No be hematoma. No active bleeding. Objective Data Vital Signs Vital Signs: Vital Signs - 24 hr 09/17/24 19:00 09/17/24 19:30 09/17/24 19:45 Temperature 36.0 C L Pulse Rate 95 95 93 Pulse Rate [Right Radial Palpation] 95 93 Respiratory Rate 18 16 Blood Pressure 119/51 L 119/51 L 73/51 L Pulse Oximetry 94 92 Oxygen Delivery Oxygen Flow Rate 09/17/24 20:00 09/17/24 20:00 09/17/24 20:00 Temperature Pulse Rate 98 100 97 Pulse Rate [Right Radial Palpation] Respiratory Rate 18 Blood Pressure 85/49 L Pulse Oximetry 96 Oxygen Delivery Room Air Oxygen Flow Rate 09/17/24 20:00 09/17/24 20:00 09/17/24 20:15 Temperature 36.4 C Pulse Rate 97 95 Pulse Rate [Right Radial Palpation] 97 Respiratory Rate 18 Blood Pressure 85/49 L 92/58 L Pulse Oximetry 92 Oxygen Delivery Oxygen Flow Rate 09/17/24 20:30 09/17/24 21:00 09/17/24 21:00 Temperature Pulse Rate 93 93 Pulse Rate [Right Radial Palpation] 93 93 Respiratory Rate 13 15 18 Blood Pressure 92/66 L 88/69 L Pulse Oximetry 92 94 90 Oxygen Delivery Nasal Cannula Oxygen Flow Rate 2 09/17/24 21:05 09/17/24 21:10 09/17/24 21:25 Temperature 36.4 C 36.4 C Pulse Rate 89 88 Pulse Rate [Right Radial Palpation] Respiratory Rate 18 16 12 Blood Pressure 92/61 L 115/61 Pulse Oximetry 96 97 96 Oxygen Delivery Nasal Cannula Oxygen Flow Rate 2 09/17/24 22:00 09/17/24 22:00 09/17/24 22:25 Temperature 36.5 C Pulse Rate 81 86 79 Pulse Rate [Right Radial Palpation] 93 Respiratory Rate 17 16 Blood Pressure 88/69 L 132/63 Pulse Oximetry 94 96 Oxygen Delivery Oxygen Flow Rate 09/17/24 22:30 09/17/24 22:45 09/17/24 22:50 Temperature 36.4 C Pulse Rate 82 78 79 Pulse Rate [Right Radial Palpation] Respiratory Rate 16 Blood Pressure 137/67 106/56 L 106/56 L Pulse Oximetry 96 Oxygen Delivery Oxygen Flow Rate 09/17/24 23:00 09/17/24 23:37 09/18/24 00:00 Temperature Pulse Rate 95 75 73 Pulse Rate [Right Radial Palpation] 95 75 Respiratory Rate 17 19 Blood Pressure 123/61 128/68 Pulse Oximetry 96 96 Oxygen Delivery Oxygen Flow Rate 09/18/24 00:00 09/18/24 00:00 09/18/24 00:00 Temperature 36.5 C Pulse Rate 78 78 75 Pulse Rate [Right Radial Palpation] Respiratory Rate 18 18 Blood Pressure 125/59 L 125/59 L Pulse Oximetry 95 95 Oxygen Delivery Nasal Cannula Oxygen Flow Rate 2 09/18/24 00:07 09/18/24 00:39 09/18/24 01:00 Temperature Pulse Rate 72 73 Pulse Rate [Right Radial Palpation] 75 Respiratory Rate Blood Pressure 120/65 117/63 Pulse Oximetry Oxygen Delivery Oxygen Flow Rate 09/18/24 01:15 09/18/24 01:30 09/18/24 01:45 Temperature Pulse Rate 70 72 72 Pulse Rate [Right Radial Palpation] Respiratory Rate Blood Pressure 113/66 105/65 117/62 Pulse Oximetry Oxygen Delivery Oxygen Flow Rate 09/18/24 02:00 09/18/24 02:00 09/18/24 02:00 Temperature Pulse Rate 72 72 72 Pulse Rate [Right Radial Palpation] Respiratory Rate 17 Blood Pressure 110/62 110/62 Pulse Oximetry 96 Oxygen Delivery Oxygen Flow Rate 09/18/24 02:07 09/18/24 02:45 09/18/24 03:00 Temperature Pulse Rate 71 69 Pulse Rate [Right Radial Palpation] 85 71 69 Respiratory Rate 16 16 Blood Pressure 95/52 L 107/64 Pulse Oximetry 97 97 Oxygen Delivery Oxygen Flow Rate 09/18/24 03:15 09/18/24 03:30 09/18/24 04:00 Temperature 36.7 C Pulse Rate 69 72 71 Pulse Rate [Right Radial Palpation] 69 72 Respiratory Rate 14 13 15 Blood Pressure 106/64 129/54 L 110/59 L Pulse Oximetry 97 97 97 Oxygen Delivery Oxygen Flow Rate 09/18/24 04:00 09/18/24 04:00 09/18/24 04:00 Temperature Pulse Rate 71 71 71 Pulse Rate [Right Radial Palpation] Respiratory Rate 15 Blood Pressure 110/59 L Pulse Oximetry 97 Oxygen Delivery Nasal Cannula Oxygen Flow Rate 2 09/18/24 04:00 09/18/24 05:40 09/18/24 06:00 Temperature Pulse Rate 84 83 Pulse Rate [Right Radial Palpation] 71 84 Respiratory Rate 19 Blood Pressure 95/58 L Pulse Oximetry 94 Oxygen Delivery Oxygen Flow Rate 09/18/24 06:00 09/18/24 08:00 09/18/24 08:00 Temperature Pulse Rate 83 86 Pulse Rate [Right Radial Palpation] 84 Respiratory Rate 14 Blood Pressure 115/61 105/62 Pulse Oximetry 93 Oxygen Delivery Oxygen Flow Rate 09/18/24 08:00 09/18/24 08:00 09/18/24 08:00 Temperature 36.9 C Pulse Rate 82 84 83 Pulse Rate [Right Radial Palpation] Respiratory Rate 14 16 Blood Pressure 105/62 Pulse Oximetry 93 93 Oxygen Delivery Room Air Oxygen Flow Rate 09/18/24 08:46 09/18/24 10:00 09/18/24 10:00 Temperature Pulse Rate 85 84 92 Pulse Rate [Right Radial Palpation] Respiratory Rate 14 Blood Pressure 120/57 L 101/62 Pulse Oximetry 94 Oxygen Delivery Oxygen Flow Rate 09/18/24 11:30 09/18/24 12:00 09/18/24 12:00 Temperature Pulse Rate 86 88 Pulse Rate [Right Radial Palpation] Respiratory Rate Blood Pressure 107/61 101/53 L Pulse Oximetry 95 Oxygen Delivery Room Air Oxygen Flow Rate 09/18/24 12:00 09/18/24 12:00 09/18/24 12:00 Temperature 36.5 C 36.5 C Pulse Rate 88 86 86 Pulse Rate [Right Radial Palpation] 86 Respiratory Rate 18 13 Blood Pressure 95/52 L 95/52 L Pulse Oximetry 95 95 Oxygen Delivery Oxygen Flow Rate 09/18/24 12:43 09/18/24 12:45 09/18/24 13:02 Temperature 36.5 C 36.7 C Pulse Rate 86 87 86 Pulse Rate [Right Radial Palpation] Respiratory Rate 16 18 Blood Pressure 103/54 L 95/52 L 87/47 L Pulse Oximetry 93 94 Oxygen Delivery Oxygen Flow Rate 09/18/24 13:09 09/18/24 13:15 09/18/24 13:29 Temperature 36.7 C Pulse Rate 85 83 83 Pulse Rate [Right Radial Palpation] Respiratory Rate 17 Blood Pressure 87/47 L 92/61 L 92/61 L Pulse Oximetry 95 Oxygen Delivery Oxygen Flow Rate 09/18/24 13:45 09/18/24 13:46 09/18/24 14:00 Temperature Pulse Rate 85 84 84 Pulse Rate [Right Radial Palpation] Respiratory Rate Blood Pressure 87/53 L 87/53 L 94/59 L Pulse Oximetry Oxygen Delivery Oxygen Flow Rate 09/18/24 14:00 09/18/24 14:00 09/18/24 14:00 Temperature 36.7 C Pulse Rate 84 83 85 Pulse Rate [Right Radial Palpation] Respiratory Rate 15 Blood Pressure 94/59 L 96/59 L Pulse Oximetry 95 Oxygen Delivery Oxygen Flow Rate 09/18/24 14:00 09/18/24 14:15 09/18/24 14:30 Temperature Pulse Rate 85 83 86 Pulse Rate [Right Radial Palpation] Respiratory Rate 14 Blood Pressure 100/62 96/59 L 107/56 L Pulse Oximetry 94 Oxygen Delivery Oxygen Flow Rate 09/18/24 14:42 09/18/24 14:45 09/18/24 15:00 Temperature 36.6 C Pulse Rate 86 83 84 Pulse Rate [Right Radial Palpation] Respiratory Rate 16 Blood Pressure 102/69 100/62 107/63 Pulse Oximetry 96 Oxygen Delivery Oxygen Flow Rate 09/18/24 15:15 09/18/24 15:30 09/18/24 15:45 Temperature Pulse Rate 85 85 85 Pulse Rate [Right Radial Palpation] Respiratory Rate Blood Pressure 102/60 100/57 L 94/59 L Pulse Oximetry Oxygen Delivery Oxygen Flow Rate 09/18/24 16:00 09/18/24 16:00 09/18/24 16:00 Temperature 36.7 C Pulse Rate 88 90 Pulse Rate [Right Radial Palpation] 88 Respiratory Rate 16 Blood Pressure 108/71 113/68 Pulse Oximetry 95 96 Oxygen Delivery Room Air Oxygen Flow Rate 09/18/24 16:00 09/18/24 16:00 09/18/24 16:00 Temperature 36.8 C Pulse Rate 88 84 88 Pulse Rate [Right Radial Palpation] Respiratory Rate 16 Blood Pressure 127/62 108/71 Pulse Oximetry 95 Oxygen Delivery Oxygen Flow Rate 09/18/24 16:15 09/18/24 16:30 09/18/24 16:40 Temperature 36.6 C Pulse Rate 88 84 83 Pulse Rate [Right Radial Palpation] Respiratory Rate 16 Blood Pressure 113/68 100/64 127/62 Pulse Oximetry 98 Oxygen Delivery Oxygen Flow Rate 09/18/24 16:45 09/18/24 17:09 09/18/24 17:32 Temperature Pulse Rate 94 93 84 Pulse Rate [Right Radial Palpation] Respiratory Rate Blood Pressure 129/58 L 115/55 L 100/50 L Pulse Oximetry Oxygen Delivery Oxygen Flow Rate Intake/Output Intake/Output: Intake & Output 09/15/24 09/16/24 09/17/24 09/18/24 23:59 23:59 23:59 23:59 Intake Total 1272.3 691.1 1585.9 Output Total 0 0 1750 Balance 1272.3 691.1 -164.1 Meds/Results Medications: Active Medications Generic Name Dose Route Start Last Admin Trade Name Freq PRN Reason Stop Dose Admin Acetaminophen 650 mg 09/16/24 12:39 Acetaminophen 325 Mg Tablet PO Q4H PRN Mild Pain (1-3) Al Hydrox/Mg Hydrox/Simethicone 30 ml 09/16/24 12:39 Mag Hydrox/Al Hydrox/Simeth 30 Ml Udc PO Q6H PRN Indigestion Aspirin 81 mg 09/17/24 08:00 09/18/24 08:32 Aspirin 81 Mg Chewable Tablet PO 81 mg DAILY@0800 ROSALINDA Administration Albumin Human 50 mls @ 999 mls/hr 09/16/24 11:49 Albutein IVPB 10/16/24 11:48 Q10M PRN HYPOTENSION Norepinephrine Bitartrate 8 mg in 250 mls @ 0 mls/hr 09/17/24 19:30 09/18/24 17:32 Levophed 8 Mg/D5w 250 Ml IV CONT 0 mcg/min .Q0M ROSALINDA 0 mls/hr Titration Protocol 0 MCG/MIN Levothyroxine Sodium 100 mcg 09/17/24 09:00 09/18/24 08:32 Levothyroxine Sodium 100 Mcg Tablet PO 100 mcg DAILY ROSALINDA Administration Nitroglycerin 0.4 mg 09/16/24 12:39 09/17/24 12:41 Nitroglycerin Sl 0.4 Mg Tablet SUBLINGUAL 0.4 mg Q5MIN PRN Administration Chest Pain Ondansetron HCl 4 mg 09/16/24 09:08 09/17/24 19:35 Ondansetron Inj 4 Mg/2 Ml Vial IV PUSH 4 mg Q4H PRN Administration Nausea Pantoprazole Sodium 40 mg 09/18/24 09:00 09/18/24 08:32 Pantoprazole Sodium Iv 40 Mg Vial IV PUSH 40 mg Q12HR ROSALINDA Administration Perflutren Lipid Microsphere 0 ml 09/16/24 13:50 Perflutren Lipid Microspheres 1.5 Ml Vial Diluted To 10 Ml Total Volume IV PUSH 09/19/24 13:50 ONCE PRN adequate visualization Protocol Polyethylene Glycol 17 gm 09/18/24 09:00 09/18/24 08:32 Polyethylene Glycol 3350 17 Gm Powd.Pack PO 17 gm QAM ROSALINDA Administration Rosuvastatin Calcium 5 mg 09/17/24 09:00 09/18/24 08:32 Rosuvastatin 5 Mg Tablet PO 5 mg DAILY ROSALINDA Administration Senna/Docusate Sodium 1 tab 09/18/24 21:00 Senna/Docusate Sodium Tablet PO HS ROSALINDA Ticagrelor 90 mg 09/18/24 09:00 09/18/24 08:32 Ticagrelor 90 Mg Tablet PO 90 mg Q12HR ROSALINDA Administration Radiology Results: ITS Impressions Chest X-Ray 09/18/24 08:21 Impression: Worsening groundglass pulmonary disease in the right lung. Correlate for asymmetric pulmonary edema versus multilobar pneumonia. Labs Labs: Laboratory Results - last 24 hr 09/17/24 09/17/24 09/17/24 17:40 17:59 18:24 WBC RBC Hgb Hct MCV MCH MCHC RDW Plt Count MPV Immature Gran % (Auto) Neut % (Auto) Lymph % (Auto) [place] % (Auto) Eos % (Auto) Baso % (Auto) Lymph # (Auto) [place] # (Auto) Eos # (Auto) Baso # (Auto) Abs Immat Gran (auto) Absolute Neuts (auto) Absolute Nucleated RBC Nucleated RBC % APTT Activ Coag Time [place] 216 H 239 H 326 H Sodium Potassium Chloride Carbon Dioxide Anion Gap BUN Creatinine Estim Creat Clear Calc Estimated GFR Glucose Calcium Magnesium Iron TIBC % Saturation Total Bilirubin AST ALT Alkaline Phosphatase Total Protein Albumin Vitamin B12 Folate Blood Type Antibody Screen Crossmatch 09/17/24 09/17/24 09/17/24 18:30 19:48 23:59 WBC RBC Hgb Hct MCV MCH MCHC RDW Plt Count MPV Immature Gran % (Auto) Neut % (Auto) Lymph % (Auto) [place] % (Auto) Eos % (Auto) Baso % (Auto) Lymph # (Auto) [place] # (Auto) Eos # (Auto) Baso # (Auto) Abs Immat Gran (auto) Absolute Neuts (auto) Absolute Nucleated RBC Nucleated RBC % APTT > 200.0 H* 60.2 H Activ Coag Time [place] Sodium Potassium Chloride Carbon Dioxide Anion Gap BUN Creatinine Estim Creat Clear Calc Estimated GFR Glucose Calcium Magnesium Iron TIBC % Saturation Total Bilirubin AST ALT Alkaline Phosphatase Total Protein Albumin Vitamin B12 Folate Blood Type A Negative Antibody Screen Negative Crossmatch See Detail 09/18/24 09/18/24 09/18/24 02:03 04:15 08:45 WBC 10.6 H RBC 2.34 L Hgb 7.3 L Hct 21.7 L MCV 92.7 MCH 31.2 MCHC 33.6 RDW 14.1 Plt Count 182 MPV 10.9 H Immature Gran % (Auto) 0.9 H Neut % (Auto) 81.9 H Lymph % (Auto) 6.6 L [place] % (Auto) 9.8 H Eos % (Auto) 0.3 Baso % (Auto) 0.5 Lymph # (Auto) 0.70 L [place] # (Auto) 1.0 H Eos # (Auto) 0.0 Baso # (Auto) 0.1 Abs Immat Gran (auto) 0.10 H Absolute Neuts (auto) 8.7 H Absolute Nucleated RBC 0.000 Nucleated RBC % 0.0 APTT 35.3 Activ Coag Time [place] Sodium 135 L Potassium 4.4 Chloride 102 Carbon Dioxide 23 Anion Gap 10 BUN 84 H D Creatinine 8.73 H Estim Creat Clear Calc 7 Estimated GFR 6 L Glucose 104 Calcium 7.6 L Magnesium 2.2 Iron 78 TIBC 203 L % Saturation 38 Total Bilirubin 0.5 AST 247 H ALT 272 H Alkaline Phosphatase 58 Total Protein 5.0 L Albumin 2.6 L Vitamin B12 597.0 Folate 19.7 Blood Type Antibody Screen Crossmatch 09/18/24 17:51 WBC RBC Hgb 8.7 L Hct 26.0 L MCV MCH MCHC RDW Plt Count MPV Immature Gran % (Auto) Neut % (Auto) Lymph % (Auto) [place] % (Auto) Eos % (Auto) Baso % (Auto) Lymph # (Auto) [place] # (Auto) Eos # (Auto) Baso # (Auto) Abs Immat Gran (auto) Absolute Neuts (auto) Absolute Nucleated RBC Nucleated RBC % APTT Activ Coag Time [place] Sodium Potassium Chloride Carbon Dioxide Anion Gap BUN Creatinine Estim Creat Clear Calc Estimated GFR Glucose Calcium Magnesium Iron TIBC % Saturation Total Bilirubin AST ALT Alkaline Phosphatase Total Protein Albumin Vitamin B12 Folate Blood Type Antibody Screen Crossmatch
[2024-09-18] MEDS: SENNA/DOCUSATE SODIUM TABLET 1 TAB PO (20:20)
[2024-09-19] VITALS (29 sets, daily range): BP systolic 83–142; BP diastolic 49–74; PULSE 81–98; RESP 8–17; TEMP 36.5–37.2; O2SAT 91–100
[2024-09-19 03:33] LABS: Hematocrit 25.2 % (42.0-52.0); Hemoglobin 8.3 g/dL (14.0-18.0); Immature Granulocyte Percent A 1.3 % (0-0.5); Lymphocytes Absolute Auto 0.80 K/mm3 (0.9-3.2); Mean Corpuscular HGB Conc 32.9 g/dl (32-36); Mean Corpuscular Hemoglobin 29.6 pg (26-34); Mean Corpuscular Volume 90.0 fl (80-100); Nucleated Red Blood Cells Absolute Auto 0.000 K/mm3 (0.0-0.012); Nucleated Red Blood Cells Perc 0.0 % (0.0-0.2); Platelet Count Result 164 k/mm3 (150-375); Red Blood Count 2.80 M/mm3 (4.6-6.20); White Blood Count 9.1 K/mm3 (4.5-10.0)
[2024-09-19 03:50] LABS: Alanine Aminotransferase 241 U/L (6-50); Albumin Level 2.8 g/dL (3.5-5.1); Alkaline Phosphatase 61 U/L (38-126); Anion Gap 8 mmol/L (4-12); Aspartate Amino Transferase 168 U/L (17-59); Bilirubin,Total 0.9 mg/dL (0.2-1.3); Blood Urea Nitrogen 56 mg/dL (9-20); Calcium 8.3 mg/dL (8.4-10.2); Carbon Dioxide 27 mmol/L (22-30); Chloride 100 mmol/L (98-107); Estimated CRCL calculation 10 ml/min; Estimated Glomerular Filt Rate 9; Glucose 107 mg/dL (65-110); Magnesium 2.1 mg/dL (1.6-2.3); Potassium 3.9 mmol/L (3.4-5.0); Sodium 135 mmol/L (137-145); Total Protein 5.2 g/dL (6.3-8.2)
[2024-09-19] MEDS: ASPIRIN 81 MG CHEWABLE TABLET PO (08:50)
[2024-09-19] MEDS: LEVOTHYROXINE SODIUM 100 MCG TABLET PO (08:50)
[2024-09-19] MEDS: ROSUVASTATIN 5 MG TABLET PO (08:50)
[2024-09-19] MEDS: TICAGRELOR 90 MG TABLET PO ×2 (08:50→20:57)
[2024-09-19] MEDS: PANTOPRAZOLE SODIUM IV 40 MG VIAL IV PUSH ×2 (08:50→20:57)
[2024-09-19 09:16] LABS: IFOB Positive Control Positive; Immunochemical Fecal Occult Bl Positive (N)
--- NOTE | 2024-09-19 09:24 | WPDINTPN ---
Progress Note: A&P Assessment and Plan (1) NSTEMI (non-ST elevated myocardial infarction): Code(s): I21.4 - Non-ST elevation (NSTEMI) myocardial infarction Status: Acute Assessment and Plan: 09/16: Patient presented with generalized weakness, chest pain. Was found to be in acute on chronic renal failure with creatinine of 20 and BUN of 161. -troponins peaked at 5.05 -09/17: status post PTCA/PCI with JESÚS x1 to left circumflex which had a 99% in stent restenoses of the ostial circumflex -continue aspirin, ticagrelor, rosuvastatin -patient did have cardiogenic shock on the cardiac cath table requiring Kyrie-Synephrine, started on Levophed which is being weaned, maintain MAP 60-65 mmHg per Cardiology -off Levophed since the evening of 09/18 -09/18: hemoglobin 7.3 this morning, cardiology requested 1 unit of packed RBCs to to keep hemoglobin > 8.0 -cardiology following the patient 09/17/2024: Echocardiogram: Summary 1. Complete two-dimensional, color flow and Doppler transthoracic echocardiogram is performed. 2. This was a technically difficult study with poorly visualized acoustic windows and limited views. 3. There is normal biventricular size and systolic function. EF 60-65%, normal RV systolic function. 4. There is at least mild aortic stenosis. Due to limited windows and poorly visualized acoustic views, unable to quantify the degree of aortic stenosis in this study. (2) Acute on chronic renal failure: Qualifiers: Acute renal failure type: unspecified Chronic kidney disease stage: unspecified stage Qualified Code(s): N17.9 - Acute kidney failure, unspecified; N18.9 - Chronic kidney disease, unspecified Code(s): N17.9 - Acute kidney failure, unspecified; N18.9 - Chronic kidney disease, unspecified Status: Acute Assessment and Plan: Patient presented with generalized weakness, decreased appetite and p.o. intake. He did continue to take his blood pressure medications -creatinine was 20.08, BUN was 164 potassium was 6.0 on admission -could be related to low flow state due to hypotension, coronary artery disease, decreased p.o. intake, low flow state -09/16: Dialysis catheter was placed by surgery more right femoral vein -09/16: Nephrology was consulted and started on dialysis -09/17, 09/18: Dialyzed -patient is anuric, BUN creatinine trending down, -patient to get dialyzed again today after discussing with Nephrology (3) Anemia: Qualifiers: Anemia type: due to chronic kidney disease Chronic kidney disease stage: unspecified stage Qualified Code(s): N18.9 - Chronic kidney disease, unspecified; D63.1 - Anemia in chronic kidney disease Code(s): D64.9 - Anemia, unspecified Status: Acute Assessment and Plan: Patient anemic on admission, hemoglobin was 9.0 (hemoglobin in March was 12.1) -09/17: Transfused 1 unit of packed RBCs -09/18: Hemoglobin 7.3 this morning, cardiology requested 1 unit of packed RBCs to maintain Hb > 8.0 since he has coronary artery disease. Transfused 1 unit of packed RBCs -patient denies any regular NSAID use -denies any dark stools or coffee-ground emesis, hematemesis, hematochezia -history of removal of colonic polyp on 05/10/2022 you on a colonoscopy done here at [facility] -no iron deficiency on iron panel -vitamin B12 and folate were normal -stool for occult blood was positive -appreciate GI evaluation and recommendation -Protonix IV q.12 hours -09/19: Patient did have melanotic stool. Will discuss with GI (4) Coronary artery disease: Code(s): I25.10 - Atherosclerotic heart disease of [place] coronary artery without angina pectoris Status: Acute Assessment and Plan: Patient has a history of coronary artery disease and stent x2 in March 2024 at [facility] (5) Hypertension: Code(s): I10 - Essential (primary) hypertension Status: Acute Assessment and Plan: History of essential hypertension, will hold antihypertensives. Recent vasopressor use, -blood pressure is currently stable (6) Transaminitis: Code(s): R74.01 - Elevation of levels of liver transaminase levels Status: Acute Assessment and Plan: Elevated LFTs likely related to coronary artery disease, renal function, hypotension, low-flow state -LFTs improving with better blood pressures and adequate perfusion -continue to monitor (7) Electrolyte imbalance: Code(s): E87.8 - Other disorders of electrolyte and fluid balance, not elsewhere classified Status: Acute Assessment and Plan: Hyperkalemia on admission has resolved with dialysis, continue to monitor Plan DVT prophylaxis: SCDs for now since patient is anemia Stress ulcer prophylaxis: Protonix IV q.12 hours Nutrition: Renal and heart healthy diet Code Status: Full code Critical Care Time Spent: 32 minutes Discussed with patient and his at bedside, updated with patient's condition and plan of care. I answered all question Due to a high probability of clinically significant, life threatening deterioration, the patient required my highest level of preparedness to intervene emergently and I personally spent this critical care time directly and personally managing the patient. This critical care time included obtaining a history; examining the patient; pulse oximetry; ordering and review of studies; arranging urgent treatment with development of a management plan; evaluation of patient's response to treatment; frequent reassessment; and discussions with other providers. It was exclusive of separately billable procedures and treating other patients and teaching time. Please see Assessment and Plan section and the rest of the note for further information on patient assessment and treatment This dictation may have been done utilizing a voice recognition system. Attempts have been made to correct errors. However, there may be uncorrected grammatical, spelling, and recognitions errors present. Subjective Date/time seen: 09/19/24 09:24 Interval history: Reason for consult: acute kidney injury, NSTEMI status post PTCA/PCI with JESÚS x1 to left circumflex which had a 99% in stent restenoses of the ostial circumflex 09/16: Dialysis catheter was placed and started on dialysis 09/17 & 09/18: Received 1 unit of packed RBCs on each day 09/19/2024: Patient seen and examined the ICU, has been off Levophed since last evening. Hemodynamically stable, afebrile. Afebrile, anuric. Dialyzed yesterday with sats 1750 mL in fluid removal. Patient is awake, alert, orientedx3. Denies any chest pain, shortness of breath, nausea, vomiting, diarrhea. Review of Systems Review of Systems: All systems reviewed & are unremarkable except as noted in HPI and below Exam Narrative: General: Pleasant gentleman in no acute distress HEENT:? Pupils equal and reactive, sclera is clear Neck:? Supple Respiratory:? Coarse breath sounds on the right side as compared to the left, no wheezing, adequate air entry Cardiac:? S1-S2 is normal, regular rate and rhythm Abdomen:? Soft, nontender, nondistended, normoactive bowel sound Extremities:? Trace edema, palpable pedal pulses. Right radial artery palpable, no evidence of hematoma or ecchymoses on the right wrist at the site of catheterization Neuro:? Patient is awake, alert, oriented, nonfocal, able to answer questions appropriately and follows simple commands Skin:? No lesions noted, Psych:? Normal mentation and affect Objective Data Vital Signs Vital Signs: Vital Signs - 24 hr 09/18/24 10:00 09/18/24 10:00 09/18/24 11:30 Temperature Pulse Rate 84 92 86 Pulse Rate [Right Radial Palpation] Respiratory Rate 14 Blood Pressure 101/62 107/61 Pulse Oximetry 94 Oxygen Delivery 09/18/24 12:00 09/18/24 12:00 09/18/24 12:00 Temperature 97.7 F Pulse Rate 88 88 Pulse Rate [Right Radial Palpation] 86 Respiratory Rate 18 Blood Pressure 101/53 L 95/52 L Pulse Oximetry 95 95 Oxygen Delivery Room Air 09/18/24 12:00 09/18/24 12:00 09/18/24 12:43 Temperature 97.7 F 97.7 F Pulse Rate 86 86 86 Pulse Rate [Right Radial Palpation] Respiratory Rate 13 16 Blood Pressure 95/52 L 103/54 L Pulse Oximetry 95 93 Oxygen Delivery 09/18/24 12:45 09/18/24 13:02 09/18/24 13:09 Temperature 98.0 F Pulse Rate 87 86 85 Pulse Rate [Right Radial Palpation] Respiratory Rate 18 Blood Pressure 95/52 L 87/47 L 87/47 L Pulse Oximetry 94 Oxygen Delivery 09/18/24 13:15 09/18/24 13:29 09/18/24 13:45 Temperature 98.0 F Pulse Rate 83 83 85 Pulse Rate [Right Radial Palpation] Respiratory Rate 17 Blood Pressure 92/61 L 92/61 L 87/53 L Pulse Oximetry 95 Oxygen Delivery 09/18/24 13:46 09/18/24 14:00 09/18/24 14:00 Temperature 98.0 F Pulse Rate 84 84 84 Pulse Rate [Right Radial Palpation] Respiratory Rate 15 Blood Pressure 87/53 L 94/59 L 94/59 L Pulse Oximetry 95 Oxygen Delivery 09/18/24 14:00 09/18/24 14:00 09/18/24 14:00 Temperature Pulse Rate 83 85 85 Pulse Rate [Right Radial Palpation] Respiratory Rate 14 Blood Pressure 96/59 L 100/62 Pulse Oximetry 94 Oxygen Delivery 09/18/24 14:15 09/18/24 14:30 09/18/24 14:42 Temperature 97.8 F Pulse Rate 83 86 86 Pulse Rate [Right Radial Palpation] Respiratory Rate 16 Blood Pressure 96/59 L 107/56 L 102/69 Pulse Oximetry 96 Oxygen Delivery 09/18/24 14:45 09/18/24 15:00 09/18/24 15:15 Temperature Pulse Rate 83 84 85 Pulse Rate [Right Radial Palpation] Respiratory Rate Blood Pressure 100/62 107/63 102/60 Pulse Oximetry Oxygen Delivery 09/18/24 15:30 09/18/24 15:45 09/18/24 16:00 Temperature Pulse Rate 85 85 88 Pulse Rate [Right Radial Palpation] Respiratory Rate Blood Pressure 100/57 L 94/59 L 108/71 Pulse Oximetry Oxygen Delivery 09/18/24 16:00 09/18/24 16:00 09/18/24 16:00 Temperature 98.0 F Pulse Rate 90 88 Pulse Rate [Right Radial Palpation] 88 Respiratory Rate 16 Blood Pressure 113/68 Pulse Oximetry 95 96 Oxygen Delivery Room Air 09/18/24 16:00 09/18/24 16:00 09/18/24 16:15 Temperature 98.3 F Pulse Rate 84 88 88 Pulse Rate [Right Radial Palpation] Respiratory Rate 16 Blood Pressure 127/62 108/71 113/68 Pulse Oximetry 95 Oxygen Delivery 09/18/24 16:30 09/18/24 16:40 09/18/24 16:45 Temperature 97.8 F Pulse Rate 84 83 94 Pulse Rate [Right Radial Palpation] Respiratory Rate 16 Blood Pressure 100/64 127/62 129/58 L Pulse Oximetry 98 Oxygen Delivery 09/18/24 17:09 09/18/24 17:32 09/18/24 18:00 Temperature Pulse Rate 93 84 93 Pulse Rate [Right Radial Palpation] Respiratory Rate Blood Pressure 115/55 L 100/50 L 106/59 L Pulse Oximetry Oxygen Delivery 09/18/24 18:00 09/18/24 18:00 09/18/24 20:00 Temperature 98.6 F Pulse Rate 91 91 90 Pulse Rate [Right Radial Palpation] Respiratory Rate 16 18 Blood Pressure 98/64 L 96/59 L Pulse Oximetry 93 91 Oxygen Delivery 09/18/24 20:00 09/18/24 20:00 09/18/24 20:00 Temperature Pulse Rate 90 Pulse Rate [Right Radial Palpation] 88 Respiratory Rate Blood Pressure Pulse Oximetry 93 Oxygen Delivery Room Air 09/18/24 20:00 09/18/24 22:00 09/18/24 22:00 Temperature Pulse Rate 91 87 86 Pulse Rate [Right Radial Palpation] Respiratory Rate 18 Blood Pressure 96/59 L 96/55 L Pulse Oximetry 95 Oxygen Delivery 09/18/24 22:00 09/19/24 00:00 09/19/24 00:00 Temperature 98.5 F Pulse Rate 86 89 Pulse Rate [Right Radial Palpation] 88 Respiratory Rate 16 Blood Pressure 96/55 L 95/58 L Pulse Oximetry 93 Oxygen Delivery 09/19/24 00:00 09/19/24 00:00 09/19/24 00:00 Temperature Pulse Rate 87 87 Pulse Rate [Right Radial Palpation] Respiratory Rate Blood Pressure 95/58 L Pulse Oximetry 93 Oxygen Delivery Room Air 09/19/24 02:00 09/19/24 02:00 09/19/24 02:05 Temperature Pulse Rate 85 85 87 Pulse Rate [Right Radial Palpation] Respiratory Rate 15 Blood Pressure 101/57 L 101/57 L Pulse Oximetry 95 Oxygen Delivery 09/19/24 04:00 09/19/24 04:00 09/19/24 04:00 Temperature Pulse Rate 88 Pulse Rate [Right Radial Palpation] 88 Respiratory Rate Blood Pressure Pulse Oximetry 93 Oxygen Delivery Room Air 09/19/24 04:00 09/19/24 04:00 09/19/24 06:00 Temperature 97.8 F Pulse Rate 84 87 87 Pulse Rate [Right Radial Palpation] Respiratory Rate 16 Blood Pressure 97/57 L 97/57 L Pulse Oximetry 94 Oxygen Delivery 09/19/24 06:00 09/19/24 06:00 09/19/24 08:00 Temperature 98.2 F Pulse Rate 85 85 89 Pulse Rate [Right Radial Palpation] Respiratory Rate 12 12 Blood Pressure 91/60 L 91/60 L 100/59 L Pulse Oximetry 91 Oxygen Delivery 09/19/24 08:00 09/19/24 08:00 Temperature Pulse Rate 89 Pulse Rate [Right Radial Palpation] Respiratory Rate Blood Pressure Pulse Oximetry 97 Oxygen Delivery Room Air Intake/Output Intake/Output: Intake & Output 09/16/24 09/17/24 09/18/24 09/19/24 23:59 23:59 23:59 23:59 Intake Total 1272.3 691.1 1825.9 360 Output Total 0 0 1750 Balance 1272.3 691.1 75.9 360 Meds/Results Medications: Active Medications Generic Name Dose Route Start Last Admin Trade Name Freq PRN Reason Stop Dose Admin Acetaminophen 650 mg 09/16/24 12:39 Acetaminophen 325 Mg Tablet PO Q4H PRN Mild Pain (1-3) Al Hydrox/Mg Hydrox/Simethicone 30 ml 09/16/24 12:39 Mag Hydrox/Al Hydrox/Simeth 30 Ml Udc PO Q6H PRN Indigestion Aspirin 81 mg 09/17/24 08:00 09/19/24 08:50 Aspirin 81 Mg Chewable Tablet PO 81 mg DAILY@0800 ROSALINDA Administration Epoetin Brandon-epbx 20,000 units 09/19/24 14:00 Epoetin Brandon-Epbx 20,000 Units/Ml Vial IV PUSH 09/19/24 14:01 ONCE ONE Albumin Human 50 mls @ 999 mls/hr 09/16/24 11:49 Albutein IVPB 10/16/24 11:48 Q10M PRN HYPOTENSION Norepinephrine Bitartrate 8 mg in 250 mls @ 0 mls/hr 09/17/24 19:30 09/19/24 06:00 Levophed 8 Mg/D5w 250 Ml IV CONT 0 mcg/min .Q0M ROSALINDA 0 mls/hr Titration Protocol 0 MCG/MIN Levothyroxine Sodium 100 mcg 09/17/24 09:00 09/19/24 08:50 Levothyroxine Sodium 100 Mcg Tablet PO 100 mcg DAILY ROSALINDA Administration Nitroglycerin 0.4 mg 09/16/24 12:39 09/17/24 12:41 Nitroglycerin Sl 0.4 Mg Tablet SUBLINGUAL 0.4 mg Q5MIN PRN Administration Chest Pain Ondansetron HCl 4 mg 09/16/24 09:08 09/17/24 19:35 Ondansetron Inj 4 Mg/2 Ml Vial IV PUSH 4 mg Q4H PRN Administration Nausea Pantoprazole Sodium 40 mg 09/18/24 09:00 09/19/24 08:50 Pantoprazole Sodium Iv 40 Mg Vial IV PUSH 40 mg Q12HR ROSALINDA Administration Perflutren Lipid Microsphere 0 ml 07/09/25 13:50 Perflutren Lipid Microspheres 1.5 Ml Vial Diluted To 10 Ml Total Volume IV PUSH 09/19/24 13:50 ONCE PRN adequate visualization Protocol Polyethylene Glycol 17 gm 09/18/24 09:00 09/19/24 08:52 Polyethylene Glycol 3350 17 Gm Powd.Pack PO Not Given QAM ROSALINDA Rosuvastatin Calcium 5 mg 09/17/24 09:00 09/19/24 08:50 Rosuvastatin 5 Mg Tablet PO 5 mg DAILY ROSALINDA Administration Senna/Docusate Sodium 1 tab 09/18/24 21:00 09/18/24 20:20 Senna/Docusate Sodium Tablet PO 1 tab HS ROSALINDA Administration Ticagrelor 90 mg 09/18/24 09:00 09/19/24 08:50 Ticagrelor 90 Mg Tablet PO 90 mg Q12HR ROSALINDA Administration Radiology Results: ITS Impressions Chest X-Ray 09/19/24 06:45 IMPRESSION: 1. No significant change in subtle interstitial and airspace opacities in the mid and lower lung zones which could represent mild pulmonary edema or pneumonia. Labs Labs: Laboratory Results - last 24 hr 09/17/24 09/18/24 09/18/24 18:30 04:15 17:51 WBC RBC Hgb 8.7 L Hct 26.0 L MCV MCH MCHC RDW Plt Count MPV Immature Gran % (Auto) Neut % (Auto) Lymph % (Auto) Cassia % (Auto) Eos % (Auto) Baso % (Auto) Lymph # (Auto) Cassia # (Auto) Eos # (Auto) Baso # (Auto) Abs Immat Gran (auto) Absolute Neuts (auto) Absolute Nucleated RBC Nucleated RBC % Sodium Potassium Chloride Carbon Dioxide Anion Gap BUN Creatinine Estim Creat Clear Calc Estimated GFR Glucose Calcium Phosphorus Magnesium Total Bilirubin AST ALT Alkaline Phosphatase Total Protein Albumin Vitamin B12 597.0 Folate 19.7 Stl Occult Blood (IFOB) Blood Type A Negative Antibody Screen Negative Crossmatch See Detail 09/19/24 09/19/24 03:28 08:44 WBC 9.1 RBC 2.80 L Hgb 8.3 L Hct 25.2 L MCV 90.0 MCH 29.6 D MCHC 32.9 RDW 15.9 H Plt Count 164 MPV 10.5 H Immature Gran % (Auto) 1.3 H Neut % (Auto) 79.1 H Lymph % (Auto) 8.8 L Cassia % (Auto) 8.7 H Eos % (Auto) 1.7 Baso % (Auto) 0.4 Lymph # (Auto) 0.80 L Cassia # (Auto) 0.8 H Eos # (Auto) 0.2 Baso # (Auto) 0.0 Abs Immat Gran (auto) 0.12 H Absolute Neuts (auto) 7.2 H Absolute Nucleated RBC 0.000 Nucleated RBC % 0.0 Sodium 135 L Potassium 3.9 Chloride 100 Carbon Dioxide 27 Anion Gap 8 BUN 56 H D Creatinine 6.24 H Estim Creat Clear Calc 10 Estimated GFR 9 L Glucose 107 Calcium 8.3 L Phosphorus 4.3 Magnesium 2.1 Total Bilirubin 0.9 AST 168 H ALT 241 H Alkaline Phosphatase 61 Total Protein 5.2 L Albumin 2.8 L Vitamin B12 Folate Stl Occult Blood (IFOB) Positive H Blood Type Antibody Screen Crossmatch Quality VTE Prophylaxis VTE prophylaxis: mechanical ordered
--- NOTE | 2024-09-19 09:36 | P.PNCA_ITS ---
Progress Note: A&P Assessment and Plan (1) NSTEMI (non-ST elevated myocardial infarction): Code(s): I21.4 - Non-ST elevation (NSTEMI) myocardial infarction Status: Acute Plan -NSTEMI -status post PCI to 99% ISR of ostial LCX (prior stent placed in 03/2024) on 09/17/24; chest pain-free post PCI ------TTE showed normal LVEF of 60%, mild aortic stenosis-Elevated BNP of 8710 -ANNA MARIE with creatinine of 20 at presentation- getting dialyzed again today -Anemia- Hemoglobin in the low 8 -Hypotension-SBP in the 90s to low 100s. Levophed on hold. Plan: -Patient had ISR of his ostial LCX stent that was placed in 03/2024 status post PCI yesterday with 3.5 mm X 18 mm [employer] bee [place]ES[place]S (please see cath report for full details of procedure). He is at high risk for recurrent restenoses given ISR of recent stent. Recommend DAPT with aspirin 81 mg daily and ticagrelor 90 mg b.i.d. for longer than 1 year if he is able to tolerate it without any bleeding issues -Continue Crestor 5 mg daily-started a couple of days ago. LFTs continue to show slow but gradual improvement. With AST today of 168 -Check H&H daily and keep hemoglobin greater than 8 -Wean norepinephrine keeping map greater than 60 -Hold all antihypertensive meds. Start Metoprolol 12.5 mg p.o. b.i.d. when SBP greater than 110 mm Hg off Levophed -Check and replace electrolytes to keep potassium greater than 4 and magnesium greater than 2 Subjective Date/time seen: 09/19/24 09:36 Interval history: Reason for encounter: NSTEMI status post PCI to 99% thrombotic stenosis of ostial LCX on 09/17/2020 Interval history: No chest pain since PCI yesterday. No shortness of breath. He is on small dose of Levophed 7.5 microgram/minute with SBP in the 90s. He received 1 unit of PRBC transfusion and hemoglobin is still 7.2. Telemetry shows sinus rhythm. EKG shows sinus rhythm with no significant ST elevations or depressions. Date of service 09/19/2024: The Versed still on hold. Blood pressures are soft and stable. No chest pain or shortness of breath and states he feels much better overall Review of Systems Review of Systems: All systems reviewed & are unremarkable except as noted in HPI and below Constitutional: Constitutional: Denies body ache(s) ENT: Reports Normal hearing present Cardiovascular: Cardiovascular: Denies chest pain Objective Data Vital Signs Vital Signs: Vital Signs - 24 hr 09/18/24 10:00 09/18/24 10:00 09/18/24 11:30 Temperature Pulse Rate 84 92 86 Pulse Rate [Right Radial Palpation] Respiratory Rate 14 Blood Pressure 101/62 107/61 Pulse Oximetry 94 Oxygen Delivery 09/18/24 12:00 09/18/24 12:00 09/18/24 12:00 Temperature 36.5 C Pulse Rate 88 88 Pulse Rate [Right Radial Palpation] 86 Respiratory Rate 18 Blood Pressure 101/53 L 95/52 L Pulse Oximetry 95 95 Oxygen Delivery Room Air 09/18/24 12:00 09/18/24 12:00 09/18/24 12:43 Temperature 36.5 C 36.5 C Pulse Rate 86 86 86 Pulse Rate [Right Radial Palpation] Respiratory Rate 13 16 Blood Pressure 95/52 L 103/54 L Pulse Oximetry 95 93 Oxygen Delivery 09/18/24 12:45 09/18/24 13:02 09/18/24 13:09 Temperature 36.7 C Pulse Rate 87 86 85 Pulse Rate [Right Radial Palpation] Respiratory Rate 18 Blood Pressure 95/52 L 87/47 L 87/47 L Pulse Oximetry 94 Oxygen Delivery 09/18/24 13:15 09/18/24 13:29 09/18/24 13:45 Temperature 36.7 C Pulse Rate 83 83 85 Pulse Rate [Right Radial Palpation] Respiratory Rate 17 Blood Pressure 92/61 L 92/61 L 87/53 L Pulse Oximetry 95 Oxygen Delivery 09/18/24 13:46 09/18/24 14:00 09/18/24 14:00 Temperature 36.7 C Pulse Rate 84 84 84 Pulse Rate [Right Radial Palpation] Respiratory Rate 15 Blood Pressure 87/53 L 94/59 L 94/59 L Pulse Oximetry 95 Oxygen Delivery 09/18/24 14:00 09/18/24 14:00 09/18/24 14:00 Temperature Pulse Rate 83 85 85 Pulse Rate [Right Radial Palpation] Respiratory Rate 14 Blood Pressure 96/59 L 100/62 Pulse Oximetry 94 Oxygen Delivery 09/18/24 14:15 09/18/24 14:30 09/18/24 14:42 Temperature 36.6 C Pulse Rate 83 86 86 Pulse Rate [Right Radial Palpation] Respiratory Rate 16 Blood Pressure 96/59 L 107/56 L 102/69 Pulse Oximetry 96 Oxygen Delivery 09/18/24 14:45 09/18/24 15:00 09/18/24 15:15 Temperature Pulse Rate 83 84 85 Pulse Rate [Right Radial Palpation] Respiratory Rate Blood Pressure 100/62 107/63 102/60 Pulse Oximetry Oxygen Delivery 09/18/24 15:30 09/18/24 15:45 09/18/24 16:00 Temperature Pulse Rate 85 85 88 Pulse Rate [Right Radial Palpation] Respiratory Rate Blood Pressure 100/57 L 94/59 L 108/71 Pulse Oximetry Oxygen Delivery 09/18/24 16:00 09/18/24 16:00 09/18/24 16:00 Temperature 36.7 C Pulse Rate 90 88 Pulse Rate [Right Radial Palpation] 88 Respiratory Rate 16 Blood Pressure 113/68 Pulse Oximetry 95 96 Oxygen Delivery Room Air 09/18/24 16:00 09/18/24 16:00 09/18/24 16:15 Temperature 36.8 C Pulse Rate 84 88 88 Pulse Rate [Right Radial Palpation] Respiratory Rate 16 Blood Pressure 127/62 108/71 113/68 Pulse Oximetry 95 Oxygen Delivery 09/18/24 16:30 09/18/24 16:40 09/18/24 16:45 Temperature 36.6 C Pulse Rate 84 83 94 Pulse Rate [Right Radial Palpation] Respiratory Rate 16 Blood Pressure 100/64 127/62 129/58 L Pulse Oximetry 98 Oxygen Delivery 09/18/24 17:09 09/18/24 17:32 09/18/24 18:00 Temperature Pulse Rate 93 84 93 Pulse Rate [Right Radial Palpation] Respiratory Rate Blood Pressure 115/55 L 100/50 L 106/59 L Pulse Oximetry Oxygen Delivery 09/18/24 18:00 09/18/24 18:00 09/18/24 20:00 Temperature 37.0 C Pulse Rate 91 91 90 Pulse Rate [Right Radial Palpation] Respiratory Rate 16 18 Blood Pressure 98/64 L 96/59 L Pulse Oximetry 93 91 Oxygen Delivery 09/18/24 20:00 09/18/24 20:00 09/18/24 20:00 Temperature Pulse Rate 90 Pulse Rate [Right Radial Palpation] 88 Respiratory Rate Blood Pressure Pulse Oximetry 93 Oxygen Delivery Room Air 09/18/24 20:00 09/18/24 22:00 09/18/24 22:00 Temperature Pulse Rate 91 87 86 Pulse Rate [Right Radial Palpation] Respiratory Rate 18 Blood Pressure 96/59 L 96/55 L Pulse Oximetry 95 Oxygen Delivery 09/18/24 22:00 09/19/24 00:00 09/19/24 00:00 Temperature 36.9 C Pulse Rate 86 89 Pulse Rate [Right Radial Palpation] 88 Respiratory Rate 16 Blood Pressure 96/55 L 95/58 L Pulse Oximetry 93 Oxygen Delivery 09/19/24 00:00 09/19/24 00:00 09/19/24 00:00 Temperature Pulse Rate 87 87 Pulse Rate [Right Radial Palpation] Respiratory Rate Blood Pressure 95/58 L Pulse Oximetry 93 Oxygen Delivery Room Air 09/19/24 02:00 09/19/24 02:00 09/19/24 02:05 Temperature Pulse Rate 85 85 87 Pulse Rate [Right Radial Palpation] Respiratory Rate 15 Blood Pressure 101/57 L 101/57 L Pulse Oximetry 95 Oxygen Delivery 09/19/24 04:00 09/19/24 04:00 09/19/24 04:00 Temperature Pulse Rate 88 Pulse Rate [Right Radial Palpation] 88 Respiratory Rate Blood Pressure Pulse Oximetry 93 Oxygen Delivery Room Air 09/19/24 04:00 09/19/24 04:00 09/19/24 06:00 Temperature 36.6 C Pulse Rate 84 87 87 Pulse Rate [Right Radial Palpation] Respiratory Rate 16 Blood Pressure 97/57 L 97/57 L Pulse Oximetry 94 Oxygen Delivery 09/19/24 06:00 09/19/24 06:00 09/19/24 08:00 Temperature 36.8 C Pulse Rate 85 85 89 Pulse Rate [Right Radial Palpation] Respiratory Rate 12 12 Blood Pressure 91/60 L 91/60 L 100/59 L Pulse Oximetry 91 Oxygen Delivery 09/19/24 08:00 09/19/24 08:00 Temperature Pulse Rate 89 Pulse Rate [Right Radial Palpation] Respiratory Rate Blood Pressure Pulse Oximetry 97 Oxygen Delivery Room Air Intake/Output Intake/Output: Intake & Output 09/16/24 09/17/24 09/18/24 09/19/24 23:59 23:59 23:59 23:59 Intake Total 1272.3 691.1 1825.9 360 Output Total 0 0 1750 Balance 1272.3 691.1 75.9 360 Meds/Results Medications: Active Medications Generic Name Dose Route Start Last Admin Trade Name Freq PRN Reason Stop Dose Admin Acetaminophen 650 mg 09/16/24 12:39 Acetaminophen 325 Mg Tablet PO Q4H PRN Mild Pain (1-3) Al Hydrox/Mg Hydrox/Simethicone 30 ml 09/16/24 12:39 Mag Hydrox/Al Hydrox/Simeth 30 Ml Udc PO Q6H PRN Indigestion Aspirin 81 mg 09/17/24 08:00 09/19/24 08:50 Aspirin 81 Mg Chewable Tablet PO 81 mg DAILY@0800 ROSALINDA Administration Epoetin [place]-epbx 20,000 units 09/19/24 14:00 Epoetin [place]-Epbx 20,000 Units/Ml Vial IV PUSH 09/19/24 14:01 ONCE ONE Albumin Human 50 mls @ 999 mls/hr 09/16/24 11:49 Albutein IVPB 10/16/24 11:48 Q10M PRN HYPOTENSION Norepinephrine Bitartrate 8 mg in 250 mls @ 0 mls/hr 09/17/24 19:30 09/19/24 06:00 Levophed 8 Mg/D5w 250 Ml IV CONT 0 mcg/min .Q0M ROSALINDA 0 mls/hr Titration Protocol 0 MCG/MIN Levothyroxine Sodium 100 mcg 09/17/24 09:00 09/19/24 08:50 Levothyroxine Sodium 100 Mcg Tablet PO 100 mcg DAILY ROSALINDA Administration Nitroglycerin 0.4 mg 09/16/24 12:39 09/17/24 12:41 Nitroglycerin Sl 0.4 Mg Tablet SUBLINGUAL 0.4 mg Q5MIN PRN Administration Chest Pain Ondansetron HCl 4 mg 09/16/24 09:08 09/17/24 19:35 Ondansetron Inj 4 Mg/2 Ml Vial IV PUSH 4 mg Q4H PRN Administration Nausea Pantoprazole Sodium 40 mg 09/18/24 09:00 09/19/24 08:50 Pantoprazole Sodium Iv 40 Mg Vial IV PUSH 40 mg Q12HR ROSALINDA Administration Perflutren Lipid Microsphere 0 ml 09/16/24 13:50 Perflutren Lipid Microspheres 1.5 Ml Vial Diluted To 10 Ml Total Volume IV PUSH 09/19/24 13:50 ONCE PRN adequate visualization Protocol Polyethylene Glycol 17 gm 09/18/24 09:00 09/19/24 08:52 Polyethylene Glycol 3350 17 Gm Powd.Pack PO Not Given QAM ROSALINDA Rosuvastatin Calcium 5 mg 09/17/24 09:00 09/19/24 08:50 Rosuvastatin 5 Mg Tablet PO 5 mg DAILY ROSALINDA Administration Senna/Docusate Sodium 1 tab 09/18/24 21:00 09/18/24 20:20 Senna/Docusate Sodium Tablet PO 1 tab HS ROSALINDA Administration Ticagrelor 90 mg 09/18/24 09:00 09/19/24 08:50 Ticagrelor 90 Mg Tablet PO 90 mg Q12HR ROSALINDA Administration Radiology Results: ITS Impressions Chest X-Ray 09/19/24 06:45 IMPRESSION: 1. No significant change in subtle interstitial and airspace opacities in the mid and lower lung zones which could represent mild pulmonary edema or pneumonia. Labs Labs: Laboratory Results - last 24 hr 09/17/24 09/18/24 09/18/24 18:30 04:15 17:51 WBC RBC Hgb 8.7 L Hct 26.0 L MCV MCH MCHC RDW Plt Count MPV Immature Gran % (Auto) Neut % (Auto) Lymph % (Auto) [place] % (Auto) Eos % (Auto) Baso % (Auto) Lymph # (Auto) [place] # (Auto) Eos # (Auto) Baso # (Auto) Abs Immat Gran (auto) Absolute Neuts (auto) Absolute Nucleated RBC Nucleated RBC % Sodium Potassium Chloride Carbon Dioxide Anion Gap BUN Creatinine Estim Creat Clear Calc Estimated GFR Glucose Calcium Phosphorus Magnesium Total Bilirubin AST ALT Alkaline Phosphatase Total Protein Albumin Vitamin B12 597.0 Folate 19.7 Stl Occult Blood (IFOB) Blood Type A Negative Antibody Screen Negative Crossmatch See Detail 09/19/24 09/19/24 03:28 08:44 WBC 9.1 RBC 2.80 L Hgb 8.3 L Hct 25.2 L MCV 90.0 MCH 29.6 D MCHC 32.9 RDW 15.9 H Plt Count 164 MPV 10.5 H Immature Gran % (Auto) 1.3 H Neut % (Auto) 79.1 H Lymph % (Auto) 8.8 L [place] % (Auto) 8.7 H Eos % (Auto) 1.7 Baso % (Auto) 0.4 Lymph # (Auto) 0.80 L [place] # (Auto) 0.8 H Eos # (Auto) 0.2 Baso # (Auto) 0.0 Abs Immat Gran (auto) 0.12 H Absolute Neuts (auto) 7.2 H Absolute Nucleated RBC 0.000 Nucleated RBC % 0.0 Sodium 135 L Potassium 3.9 Chloride 100 Carbon Dioxide 27 Anion Gap 8 BUN 56 H D Creatinine 6.24 H Estim Creat Clear Calc 10 Estimated GFR 9 L Glucose 107 Calcium 8.3 L Phosphorus 4.3 Magnesium 2.1 Total Bilirubin 0.9 AST 168 H ALT 241 H Alkaline Phosphatase 61 Total Protein 5.2 L Albumin 2.8 L Vitamin B12 Folate Stl Occult Blood (IFOB) Positive H Blood Type Antibody Screen Crossmatch
--- NOTE | 2024-09-19 10:21 | WPDGIPROGNO ---
Progress Note: A&P Assessment and Plan (1) Acute on chronic anemia: Code(s): D64.9 - Anemia, unspecified Status: Acute Assessment and Plan: occult blood in stool but noted dark brown stool hgb stable at 8 had recent cardiac stents after NSTEMI and needs to continue using blood thinner per professional services consultant continue to monitor, no EGD unless acute drop h/h or melena ppi daily (2) Occult blood in stools: Code(s): R19.5 - Other fecal abnormalities Status: Acute Assessment and Plan: rectal exam today with dark brown stool monitor h/h (3) Shock liver: Code(s): K72.00 - Acute and subacute hepatic failure without coma Status: Acute Assessment and Plan: improved, off pressors liver enzymes trending down (4) NSTEMI (non-ST elevated myocardial infarction): Code(s): I21.4 - Non-ST elevation (NSTEMI) myocardial infarction Status: Acute Assessment and Plan: s/p stents on blood thinners per cardiology (5) Acute on chronic renal failure: Qualifiers: Acute renal failure type: unspecified Chronic kidney disease stage: unspecified stage Qualified Code(s): N17.9 - Acute kidney failure, unspecified; N18.9 - Chronic kidney disease, unspecified Code(s): N17.9 - Acute kidney failure, unspecified; N18.9 - Chronic kidney disease, unspecified Status: Acute Assessment and Plan: requiring dialysis (6) Acute uremia: Code(s): N19 - Unspecified kidney failure Status: Acute Subjective Date/time seen: 09/19/24 10:21 Interval history: he is off pressors today had + FOBT stool, dark brown stool confirmed by rectal exam no changes Review of Systems Review of Systems: All systems reviewed & are unremarkable except as noted in HPI and below Exam Narrative: General: Pleasant gentleman in no acute distress HEENT:? Pupils equal and reactive, sclera is clear Neck:? Supple Respiratory:? Coarse breath sounds on the right side as compared to the left, no wheezing, adequate air entry Cardiac:? S1-S2 is normal, regular rate and rhythm Abdomen:? Soft, nontender, nondistended, normoactive bowel sound Extremities:? Trace edema, palpable pedal pulses. Right radial artery palpable, no evidence of hematoma or ecchymoses on the right wrist at the site of catheterization Neuro:? Patient is awake, alert, oriented, nonfocal, able to answer questions appropriately and follows simple commands Skin:? No lesions noted, Psych:? Normal mentation and affect Objective Data Vital Signs Vital Signs: Vital Signs - 24 hr 09/18/24 11:30 09/18/24 12:00 09/18/24 12:00 Temperature Pulse Rate 86 88 Pulse Rate [Right Radial Palpation] Respiratory Rate Blood Pressure 107/61 101/53 L Pulse Oximetry 95 Oxygen Delivery Room Air 09/18/24 12:00 09/18/24 12:00 09/18/24 12:00 Temperature 97.7 F 97.7 F Pulse Rate 88 86 86 Pulse Rate [Right Radial Palpation] 86 Respiratory Rate 18 13 Blood Pressure 95/52 L 95/52 L Pulse Oximetry 95 95 Oxygen Delivery 09/18/24 12:43 09/18/24 12:45 09/18/24 13:02 Temperature 97.7 F 98.0 F Pulse Rate 86 87 86 Pulse Rate [Right Radial Palpation] Respiratory Rate 16 18 Blood Pressure 103/54 L 95/52 L 87/47 L Pulse Oximetry 93 94 Oxygen Delivery 09/18/24 13:09 09/18/24 13:15 09/18/24 13:29 Temperature 98.0 F Pulse Rate 85 83 83 Pulse Rate [Right Radial Palpation] Respiratory Rate 17 Blood Pressure 87/47 L 92/61 L 92/61 L Pulse Oximetry 95 Oxygen Delivery 09/18/24 13:45 09/18/24 13:46 09/18/24 14:00 Temperature Pulse Rate 85 84 84 Pulse Rate [Right Radial Palpation] Respiratory Rate Blood Pressure 87/53 L 87/53 L 94/59 L Pulse Oximetry Oxygen Delivery 09/18/24 14:00 09/18/24 14:00 09/18/24 14:00 Temperature 98.0 F Pulse Rate 84 83 85 Pulse Rate [Right Radial Palpation] Respiratory Rate 15 Blood Pressure 94/59 L 96/59 L Pulse Oximetry 95 Oxygen Delivery 09/18/24 14:00 09/18/24 14:15 09/18/24 14:30 Temperature Pulse Rate 85 83 86 Pulse Rate [Right Radial Palpation] Respiratory Rate 14 Blood Pressure 100/62 96/59 L 107/56 L Pulse Oximetry 94 Oxygen Delivery 09/18/24 14:42 09/18/24 14:45 09/18/24 15:00 Temperature 97.8 F Pulse Rate 86 83 84 Pulse Rate [Right Radial Palpation] Respiratory Rate 16 Blood Pressure 102/69 100/62 107/63 Pulse Oximetry 96 Oxygen Delivery 09/18/24 15:15 09/18/24 15:30 09/18/24 15:45 Temperature Pulse Rate 85 85 85 Pulse Rate [Right Radial Palpation] Respiratory Rate Blood Pressure 102/60 100/57 L 94/59 L Pulse Oximetry Oxygen Delivery 09/18/24 16:00 09/18/24 16:00 09/18/24 16:00 Temperature 98.0 F Pulse Rate 88 90 Pulse Rate [Right Radial Palpation] 88 Respiratory Rate 16 Blood Pressure 108/71 113/68 Pulse Oximetry 95 96 Oxygen Delivery Room Air 09/18/24 16:00 09/18/24 16:00 09/18/24 16:00 Temperature 98.3 F Pulse Rate 88 84 88 Pulse Rate [Right Radial Palpation] Respiratory Rate 16 Blood Pressure 127/62 108/71 Pulse Oximetry 95 Oxygen Delivery 09/18/24 16:15 09/18/24 16:30 09/18/24 16:40 Temperature 97.8 F Pulse Rate 88 84 83 Pulse Rate [Right Radial Palpation] Respiratory Rate 16 Blood Pressure 113/68 100/64 127/62 Pulse Oximetry 98 Oxygen Delivery 09/18/24 16:45 09/18/24 17:09 09/18/24 17:32 Temperature Pulse Rate 94 93 84 Pulse Rate [Right Radial Palpation] Respiratory Rate Blood Pressure 129/58 L 115/55 L 100/50 L Pulse Oximetry Oxygen Delivery 09/18/24 18:00 09/18/24 18:00 09/18/24 18:00 Temperature Pulse Rate 93 91 91 Pulse Rate [Right Radial Palpation] Respiratory Rate 16 Blood Pressure 106/59 L 98/64 L Pulse Oximetry 93 Oxygen Delivery 09/18/24 20:00 09/18/24 20:00 09/18/24 20:00 Temperature 98.6 F Pulse Rate 90 Pulse Rate [Right Radial Palpation] 88 Respiratory Rate 18 Blood Pressure 96/59 L Pulse Oximetry 91 93 Oxygen Delivery Room Air 09/18/24 20:00 09/18/24 20:00 09/18/24 22:00 Temperature Pulse Rate 90 91 87 Pulse Rate [Right Radial Palpation] Respiratory Rate 18 Blood Pressure 96/59 L 96/55 L Pulse Oximetry 95 Oxygen Delivery 09/18/24 22:00 09/18/24 22:00 09/19/24 00:00 Temperature 98.5 F Pulse Rate 86 86 89 Pulse Rate [Right Radial Palpation] Respiratory Rate 16 Blood Pressure 96/55 L 95/58 L Pulse Oximetry 93 Oxygen Delivery 09/19/24 00:00 09/19/24 00:00 09/19/24 00:00 Temperature Pulse Rate 87 Pulse Rate [Right Radial Palpation] 88 Respiratory Rate Blood Pressure Pulse Oximetry 93 Oxygen Delivery Room Air 09/19/24 00:00 09/19/24 02:00 09/19/24 02:00 Temperature Pulse Rate 87 85 85 Pulse Rate [Right Radial Palpation] Respiratory Rate Blood Pressure 95/58 L 101/57 L Pulse Oximetry Oxygen Delivery 09/19/24 02:05 09/19/24 04:00 09/19/24 04:00 Temperature Pulse Rate 87 Pulse Rate [Right Radial Palpation] 88 Respiratory Rate 15 Blood Pressure 101/57 L Pulse Oximetry 95 93 Oxygen Delivery Room Air 09/19/24 04:00 09/19/24 04:00 09/19/24 04:00 Temperature 97.8 F Pulse Rate 88 84 87 Pulse Rate [Right Radial Palpation] Respiratory Rate 16 Blood Pressure 97/57 L 97/57 L Pulse Oximetry 94 Oxygen Delivery 09/19/24 06:00 09/19/24 06:00 09/19/24 06:00 Temperature Pulse Rate 87 85 85 Pulse Rate [Right Radial Palpation] Respiratory Rate 12 Blood Pressure 91/60 L 91/60 L Pulse Oximetry 91 Oxygen Delivery 09/19/24 08:00 09/19/24 08:00 09/19/24 08:00 Temperature 98.2 F Pulse Rate 89 89 Pulse Rate [Right Radial Palpation] Respiratory Rate 12 Blood Pressure 100/59 L Pulse Oximetry 97 Oxygen Delivery Room Air 09/19/24 10:00 Temperature 98.0 F Pulse Rate 87 Pulse Rate [Right Radial Palpation] Respiratory Rate 8 L Blood Pressure 83/74 L Pulse Oximetry 96 Oxygen Delivery Intake/Output Intake/Output: Intake & Output 09/16/24 09/17/24 09/18/24 09/19/24 23:59 23:59 23:59 23:59 Intake Total 1272.3 691.1 1825.9 360 Output Total 0 0 1750 Balance 1272.3 691.1 75.9 360 Meds/Results Medications: Active Medications Generic Name Dose Route Start Last Admin Trade Name Megan PRN Reason Stop Dose Admin Acetaminophen 650 mg 09/16/24 12:39 Acetaminophen 325 Mg Tablet PO Q4H PRN Mild Pain (1-3) Al Hydrox/Mg Hydrox/Simethicone 30 ml 09/16/24 12:39 Mag Hydrox/Al Hydrox/Simeth 30 Ml Udc PO Q6H PRN Indigestion Aspirin 81 mg 09/17/24 08:00 09/19/24 08:50 Aspirin 81 Mg Chewable Tablet PO 81 mg DAILY@0800 ROSALINDA Administration Epoetin [place]-epbx 20,000 units 09/19/24 14:00 Epoetin [place]-Epbx 20,000 Units/Ml Vial IV PUSH 09/19/24 14:01 ONCE ONE Albumin Human 50 mls @ 999 mls/hr 09/16/24 11:49 Albutein IVPB 10/16/24 11:48 Q10M PRN HYPOTENSION Norepinephrine Bitartrate 8 mg in 250 mls @ 0 mls/hr 09/17/24 19:30 09/19/24 06:00 Levophed 8 Mg/D5w 250 Ml IV CONT 0 mcg/min .Q0M ROSALINDA 0 mls/hr Titration Protocol 0 MCG/MIN Levothyroxine Sodium 100 mcg 09/17/24 09:00 09/19/24 08:50 Levothyroxine Sodium 100 Mcg Tablet PO 100 mcg DAILY ROSALINDA Administration Nitroglycerin 0.4 mg 09/16/24 12:39 09/17/24 12:41 Nitroglycerin Sl 0.4 Mg Tablet SUBLINGUAL 0.4 mg Q5MIN PRN Administration Chest Pain Ondansetron HCl 4 mg 09/16/24 09:08 09/17/24 19:35 Ondansetron Inj 4 Mg/2 Ml Vial IV PUSH 4 mg Q4H PRN Administration Nausea Pantoprazole Sodium 40 mg 09/18/24 09:00 09/19/24 08:50 Pantoprazole Sodium Iv 40 Mg Vial IV PUSH 40 mg Q12HR ROSALINDA Administration Perflutren Lipid Microsphere 0 ml 09/16/24 13:50 Perflutren Lipid Microspheres 1.5 Ml Vial Diluted To 10 Ml Total Volume IV PUSH 09/19/24 13:50 ONCE PRN adequate visualization Protocol Polyethylene Glycol 17 gm 09/18/24 09:00 09/19/24 08:52 Polyethylene Glycol 3350 17 Gm Powd.Pack PO Not Given QAM ROSALINDA Rosuvastatin Calcium 5 mg 09/17/24 09:00 09/19/24 08:50 Rosuvastatin 5 Mg Tablet PO 5 mg DAILY ROSALINDA Administration Senna/Docusate Sodium 1 tab 09/18/24 21:00 09/18/24 20:20 Senna/Docusate Sodium Tablet PO 1 tab HS ROSALINDA Administration Ticagrelor 90 mg 09/18/24 09:00 09/19/24 08:50 Ticagrelor 90 Mg Tablet PO 90 mg Q12HR ROSALINDA Administration Radiology Results: ITS Impressions Chest X-Ray 09/19/24 06:45 IMPRESSION: 1. No significant change in subtle interstitial and airspace opacities in the mid and lower lung zones which could represent mild pulmonary edema or pneumonia. Labs Labs: Laboratory Results - last 24 hr 09/17/24 09/18/24 09/19/24 18:30 17:51 03:28 WBC 9.1 RBC 2.80 L Hgb 8.7 L 8.3 L Hct 26.0 L 25.2 L MCV 90.0 MCH 29.6 D MCHC 32.9 RDW 15.9 H Plt Count 164 MPV 10.5 H Immature Gran % (Auto) 1.3 H Neut % (Auto) 79.1 H Lymph % (Auto) 8.8 L [place] % (Auto) 8.7 H Eos % (Auto) 1.7 Baso % (Auto) 0.4 Lymph # (Auto) 0.80 L [place] # (Auto) 0.8 H Eos # (Auto) 0.2 Baso # (Auto) 0.0 Abs Immat Gran (auto) 0.12 H Absolute Neuts (auto) 7.2 H Absolute Nucleated RBC 0.000 Nucleated RBC % 0.0 Sodium 135 L Potassium 3.9 Chloride 100 Carbon Dioxide 27 Anion Gap 8 BUN 56 H D Creatinine 6.24 H Estim Creat Clear Calc 10 Estimated GFR 9 L Glucose 107 Calcium 8.3 L Phosphorus 4.3 Magnesium 2.1 Total Bilirubin 0.9 AST 168 H ALT 241 H Alkaline Phosphatase 61 Total Protein 5.2 L Albumin 2.8 L Stl Occult Blood (IFOB) Blood Type A Negative Antibody Screen Negative Crossmatch See Detail 09/19/24 08:44 WBC RBC Hgb Hct MCV MCH MCHC RDW Plt Count MPV Immature Gran % (Auto) Neut % (Auto) Lymph % (Auto) [place] % (Auto) Eos % (Auto) Baso % (Auto) Lymph # (Auto) [place] # (Auto) Eos # (Auto) Baso # (Auto) Abs Immat Gran (auto) Absolute Neuts (auto) Absolute Nucleated RBC Nucleated RBC % Sodium Potassium Chloride Carbon Dioxide Anion Gap BUN Creatinine Estim Creat Clear Calc Estimated GFR Glucose Calcium Phosphorus Magnesium Total Bilirubin AST ALT Alkaline Phosphatase Total Protein Albumin Stl Occult Blood (IFOB) Positive H Blood Type Antibody Screen Crossmatch
--- NOTE | 2024-09-19 12:04 | P.PNNP_ITS ---
Progress Note: A&P Assessment and Plan (1) Acute kidney injury: Code(s): N17.9 - Acute kidney failure, unspecified Status: Acute Assessment and Plan: * etiology not clear * significant decline in renal function/creatinine noted by labs on admission * possibly due to hypotension +/- cardiac event * evaluation to date noted: * renal ultrasound in July 2024 was normal * unable to check urine studies since anuric * due to hyperkalemia, severe acidosis, and possible uremia, initiated on dialysis (09/16) * s/p temporary femoral line by Surgery * HD on 09/16, 09/17, and 09/18 * plan HD today * plan temporary femoral HD catheter removal following HD treatment today * plan tunneled HD catheter next week * follow trend of electrolytes, acidosis, and azotemia * follow trend of repeat labs and UOP to assess for potential recovery (2) Chronic kidney disease: Code(s): N18.9 - Chronic kidney disease, unspecified Status: Chronic Assessment and Plan: * specifics are not clear... * according to patient, last testing ~ 1 month ago noted his kidney function at 40% * last creatinine here in March 2024 was 1.28mg/dl * attempting to obtain records from primary receivables specialist (Dr. Robert Shultz) regarding baseline kidney function and what evaluation has been done * records still not available for review (3) NSTEMI (non-ST elevated myocardial infarction): Code(s): I21.4 - Non-ST elevation (NSTEMI) myocardial infarction Status: Acute Assessment and Plan: * elevated troponins and admission EKG noted * s/p heparin gtt * Cardiology following * s/p cardiac catheterization (09/17) with findings/interventions noted: * left main coronary artery is widely patent without any significant obstructive disease; prior stent in left main from 03/2024 is widely patent * LAD and the diagonal branches have mild luminal irregularities without any significant obstructive angiographic disease; prior stent in the proximal LAD from 03/2024 is widely patent * left circuflex with 99% instent restenoses (stent was placed in 03/2024) of ostial LCX; there is 60% calcified stenosis in mid LCX; distal LCX is very tiny and diffusely diseased; OM branches have minor luminal irregularities; following initial diagnostic image of the left system the flow in LCX decreased from RHODA 3 to RHODA 1 due to significant ostial LCX stenosis * proximal RCA has 30% stenosis; Right dominant circulation; distal RCA, RPDA, and RPLA appear diffusely thready without any focal stenosis due to spasm * status post successful IVUS guided PCI to 99% InStent restenoses of ostial LCX (culprit for patient's presentation) with 3.5 mm X 18 mm Medtronic bee [place] JESÚS followed by post-dilation with a 3.5 mm X 15 mm NC balloon, KBI with 3.5 mm X 15 mm NC balloon in LCX and 3.5 mm X 15 mm NC balloon in LAD, and final POT with 4.0 mm X 15 mm NC balloon balloon * on ASA and ticagrelor * on statin * start BB when BP allows * continue medical management (4) Hyperkalemia: Code(s): E87.5 - Hyperkalemia Status: Acute Assessment and Plan: * resolved with CERTIFIED ALCOHOL AND DRUG COUNSELOR/dialysis * noted on admission * resistant to medical therapy with ER interventions * follow trend of K+ (5) Metabolic acidosis: Code(s): E87.20 - Acidosis, unspecified Status: Acute Assessment and Plan: * improvement/corrected with dialysis * presumably due to severity of ANNA MARIE * lactic acid normal (6) Anemia: Qualifiers: Anemia type: due to chronic kidney disease Chronic kidney disease stage: unspecified stage Qualified Code(s): N18.9 - Chronic kidney disease, unspecified; D63.1 - Anemia in chronic kidney disease Code(s): D64.9 - Anemia, unspecified Status: Acute Assessment and Plan: * presumably related to ANNA MARIE +/- CKD and acute illness * PRBC transfusion per protocol * 2 units since admission * Epogen with HD * anemia studies with adequate iron stores; b12 and folate acceptable * seen by GI with recommendations noted * no plans for EGD at this time * follow trend of H/H (7) Hypertension: Code(s): I10 - Essential (primary) hypertension Status: Chronic Assessment and Plan: * soft since admission * was on low dose levophed gtt post cardiac catheterization * wean off * follow trend of hemodynamics (8) Transaminitis: Code(s): R74.01 - Elevation of levels of liver transaminase levels Status: Acute Assessment and Plan: * as noted by admission labs * presumably due cardiac event and subsequent hypoperfusion (?) * slow improvement noted * follow trend Will continue to follow. L Subjective Date/time seen: 09/19/24 12:04 Interval history: Follow-up for acute kidney injury/acute renal failure on chronic kidney disease (requiring CERTIFIED ALCOHOL AND DRUG COUNSELOR/hemodialysis) Tolerated dialysis treatment yesterday without any issue or problems; weaned off vasopressor therapy yesterday evening with stable hemodynamics at this time; still not making any significant urine output since admission; tolerated PRBC transfusion yesterday with appropriate incrementation in H/H; otherwise, no apparent distress voiced at the time of my visit; plan for another HD treatment this afternoon. Exam 2 Narrative: General: elderly but WD/WN male in NAD Heart: normal S1 and S2; no rub Lungs: clear to auscultation Abdomen: soft, nontender, nondistended, positive bowel sounds Extremities: no cyanosis or clubbing; no edema Skin: no rash Objective Data Vital Signs Vital Signs: Vital Signs Temp Pulse Pulse Resp BP Pulse Ox O2 Del Method 09/19/24 12:00 98.0 F 91 13 142/64 H 96 Room Air 09/19/24 10:00 85 100/66 09/19/24 10:00 87 09/19/24 10:00 98.0 F 87 8 L 83/74 L 96 09/19/24 08:00 83 100/59 L 09/19/24 08:00 89 09/19/24 08:00 97 Room Air 09/19/24 08:00 98.2 F 89 12 100/59 L 09/19/24 06:00 85 91/60 L 09/19/24 06:00 85 12 91/60 L 91 09/19/24 06:00 87 09/19/24 04:00 87 97/57 L 09/19/24 04:00 97.8 F 84 16 97/57 L 94 09/19/24 04:00 88 09/19/24 04:00 93 Room Air 09/19/24 04:00 88 09/19/24 02:05 87 15 101/57 L 95 09/19/24 02:00 85 101/57 L 09/19/24 02:00 85 09/19/24 00:00 87 95/58 L 09/19/24 00:00 87 09/19/24 00:00 93 Room Air 09/19/24 00:00 88 09/19/24 00:00 98.5 F 89 16 95/58 L 93 09/18/24 22:00 86 96/55 L 09/18/24 22:00 86 09/18/24 22:00 87 18 96/55 L 95 09/18/24 20:00 91 96/59 L 09/18/24 20:00 90 09/18/24 20:00 93 Room Air 09/18/24 20:00 88 09/18/24 20:00 98.6 F 90 18 96/59 L 91 09/18/24 18:00 91 16 98/64 L 93 09/18/24 18:00 91 09/18/24 18:00 93 106/59 L Intake/Output Intake/Output: Intake & Output 09/16/24 09/17/24 09/18/24 09/19/24 23:59 23:59 23:59 23:59 Intake Total 1272.3 691.1 1825.9 360 Output Total 0 0 1750 Balance 1272.3 691.1 75.9 360 Meds/Results Medications: Active Medications Generic Name Dose Route Start Last Admin Trade Name Freq PRN Reason Stop Dose Admin Acetaminophen 650 mg 09/16/24 12:39 Acetaminophen 325 Mg Tablet PO Q4H PRN Mild Pain (1-3) Al Hydrox/Mg Hydrox/Simethicone 30 ml 09/16/24 12:39 Mag Hydrox/Al Hydrox/Simeth 30 Ml Udc PO Q6H PRN Indigestion Aspirin 81 mg 09/17/24 08:00 09/19/24 08:50 Aspirin 81 Mg Chewable Tablet PO 81 mg DAILY@0800 ROSALINDA Administration Albumin Human 50 mls @ 999 mls/hr 09/16/24 11:49 Albutein IVPB 10/16/24 11:48 Q10M PRN HYPOTENSION Norepinephrine Bitartrate 8 mg in 250 mls @ 0 mls/hr 09/17/24 19:30 09/19/24 16:00 Levophed 8 Mg/D5w 250 Ml IV CONT 0 mcg/min .Q0M ROSALINDA 0 mls/hr Titration Protocol 0 MCG/MIN Levothyroxine Sodium 100 mcg 09/17/24 09:00 09/19/24 08:50 Levothyroxine Sodium 100 Mcg Tablet PO 100 mcg DAILY ROSALINDA Administration Nitroglycerin 0.4 mg 09/16/24 12:39 09/17/24 12:41 Nitroglycerin Sl 0.4 Mg Tablet SUBLINGUAL 0.4 mg Q5MIN PRN Administration Chest Pain Ondansetron HCl 4 mg 09/16/24 09:08 09/17/24 19:35 Ondansetron Inj 4 Mg/2 Ml Vial IV PUSH 4 mg Q4H PRN Administration Nausea Pantoprazole Sodium 40 mg 09/18/24 09:00 09/19/24 08:50 Pantoprazole Sodium Iv 40 Mg Vial IV PUSH 40 mg Q12HR ROSALINDA Administration Phenol 1 spray 09/19/24 13:54 Phenol/Sod Pheno Fonda Gray (*Bkc) MUCOUS MEM PRN PRN Sore Throat Polyethylene Glycol 17 gm 09/18/24 09:00 09/19/24 08:52 Polyethylene Glycol 3350 17 Gm Powd.Pack PO Not Given QAM [facility] Rosuvastatin Calcium 5 mg 09/17/24 09:00 09/19/24 08:50 Rosuvastatin 5 Mg Tablet PO 5 mg DAILY ROSALINDA Administration Senna/Docusate Sodium 1 tab 09/18/24 21:00 09/18/24 20:20 Senna/Docusate Sodium Tablet PO 1 tab HS ROSALINDA Administration Ticagrelor 90 mg 09/18/24 09:00 09/19/24 08:50 Ticagrelor 90 Mg Tablet PO 90 mg Q12HR ROSALINDA Administration Radiology Results: ITS Impressions Chest X-Ray 09/19/24 06:45 IMPRESSION: 1. No significant change in subtle interstitial and airspace opacities in the mid and lower lung zones which could represent mild pulmonary edema or pneumonia. Labs Labs: Laboratory Tests 09/19/24 03:28 09/19/24 03:28 Calcium 8.3 L Phosphorus 4.3 Magnesium 2.1 Total Bilirubin 0.9 AST 168 H ALT 241 H Alkaline Phosphatase 61 Total Protein 5.2 L Albumin 2.8 L
[2024-09-19] MEDS: EPOETIN ALFA-EPBX 20,000 UNITS/ML VIAL 20000 UNITS IV PUSH (13:44)
[2024-09-19] MEDS: SODIUM CHLORIDE 0.9% IV 1,000 ML 999 ML IV CONT (13:44)
--- NOTE | 2024-09-19 14:52 | P.PNIM_ITS ---
Progress Note: A&P Assessment and Plan (1) NSTEMI (non-ST elevated myocardial infarction): Code(s): I21.4 - Non-ST elevation (NSTEMI) myocardial infarction Status: Acute (2) History of right common carotid artery stent placement: Code(s): Z98.890 - Other specified postprocedural states; Z95.828 - Presence of other vascular implants and grafts Status: Acute (3) Coronary artery disease: Code(s): I25.10 - Atherosclerotic heart disease of [place] coronary artery without angina pectoris Status: Acute (4) Hypertension: Code(s): I10 - Essential (primary) hypertension Status: Acute (5) Volume overload: Code(s): E87.70 - Fluid overload, unspecified Status: Acute (6) Transaminitis: Code(s): R74.01 - Elevation of levels of liver transaminase levels Status: Acute (7) Acute on chronic renal failure: Qualifiers: Acute renal failure type: unspecified Chronic kidney disease stage: unspecified stage Qualified Code(s): N17.9 - Acute kidney failure, unspecified; N18.9 - Chronic kidney disease, unspecified Code(s): N17.9 - Acute kidney failure, unspecified; N18.9 - Chronic kidney disease, unspecified Status: Acute (8) Anemia: Qualifiers: Anemia type: due to chronic kidney disease Chronic kidney disease stage: unspecified stage Qualified Code(s): N18.9 - Chronic kidney disease, unspecified; D63.1 - Anemia in chronic kidney disease Code(s): D64.9 - Anemia, unspecified Status: Acute Plan Hospital course: 73-year-old male with complex history including coronary artery disease status post 2 stents in 2024 at [facility] per the patient, carotid stenosis status post right common carotid artery stent placement [facility] 2024, hypertension, hypertension, CKD, prior tobacco dependence quit smoking in 2014. Primary it project lead is Dr. Robert Shultz, unknown CKD baseline. Reportedly the patient was diagnosed with renal failure 2 weeks prior to admission. He has also had concurrent loss of appetite, weakness and fatigue along with muscle cramps in lower extremities. He presents to [facility] on 09/16/2024 with chest pain. He describes it as sharp however sometimes tight. In the ER he received nitroglycerin which improved his pain. Denied palpitations shortness of breath or cough. Unfortunately on presentation he was in severe renal failure with hyperkalemia and a BNP of 8710 with elevated trop onin at 0.2. EKG did not demonstrate ST elevations. Nephrology consulted. Unclear etiology for the acute kidney failure however a left-sided femoral vein Yuriy catheter was placed any received dialysis on 09/16 and 09/17. Hemoglobin in 2023 10.6, 12.1 in March of 2024, on admission 9.8 dropping to 7.5 on 09/17/2024. No hemoptysis or melena/hematochezia however nursing staff noted he was exsanguinating around the insertion site of the femoral catheter. Pressure dressing was applied and repeat hemoglobin 7.9. ----- Troponin peaked at 5.05 on 09/17 at 9:00 a.m. repeat at noon coming down to 4.2. Subsequently taken to cardiac catheterization lab on 09/17/2024. Status post PCI to 99% ISR of ostial LCX (prior stent placed in 03/2024) with 3.5 mm x 18 mm Medtronic bee [place] JESÚS. He is at high risk for recurrent restenoses. Cardiology recommends dual antiplatelet therapy with aspirin 81 mg p.o. daily and ticagrelor 90 mg b.i.d. for longer than 1 year with anemia and any bleeding issues into consideration. -Goal hemoglobin greater than 8. Has received 2 units PRBC. Continue to check daily more often if necessary. -cardiogenic shock during catheterization, norepinephrine started. Wean norepinephrine keeping map greater than 60. Levophed discontinued on 09/19/2024. Holding antihypertensives for now.. Start Metoprolol 12.5 mg p.o. b.i.d. when SBP greater than 110 mm Hg off Levophed -Check and replace electrolytes to keep potassium greater than 4 and magnesium greater than 2 -Continue Crestor 5 mg daily-started yesterday. Recheck of LFTs showed they are down trending -report of dark brown stool on 09/19/2024. GI following. Recommend to continue to monitor. With melena/hematochezia or acute drop in hemoglobin endoscopy/colonoscopy can be considered. He is high risk. -nephrology following. anuric acute renal failure on CKD. Receiving dialysis again on 09/18/2024. Scant bibasilar crackles but no shortness of breath and he is saturating well on room air. Continue to monitor urine output if any and daily renal function. Nursing reports his left femoral Yuriy catheter is not working properly. Patient may be due for a tunneled catheter, Nephrology following. ----- Stable in ICU. SCDs only considering anemia. Heart healthy and renal dialysis diet. Continue daily labs including CMP CBC magnesium phosphorus. Goal hemoglobin greater than 8. Holding antihypertensives. Protonix 40 mg IV b.i.d.. Continue aspirin and ticagrelor. Patient wishes to be full code. Currently stable. Subjective Date/time seen: 09/19/24 14:52 Interval history: Patient denies complaints today. Still denies having urinary output. No chest pain. Reportedly had dark brown stool Review of Systems Review of Systems: All systems reviewed & are unremarkable except as noted in HPI and below (Subjective) Exam Const: General: comfortable and no acute distress Eyes: Pupils: Equal, round and reactive pupils present Neck: Neck: supple Resp: Effort & Inspection: normal respiratory effort Other: Scant crackles bibasilar Cardio: Rate: regular rate Rhythm: regular rhythm Heart sounds: no gallops, no murmurs and no rubs GI: Inspection: non-distended GI Palp: Yes Soft to palpation Neuro: Motor exam (neuro): 5/5 motor strength present throughout Extrem: General: no edema Objective Data Vital Signs Vital Signs: Vital Signs - 24 hr 09/18/24 15:00 09/18/24 15:15 09/18/24 15:30 Temperature Pulse Rate 84 85 85 Pulse Rate [Right Radial Palpation] Respiratory Rate Blood Pressure 107/63 102/60 100/57 L Pulse Oximetry Oxygen Delivery 09/18/24 15:45 09/18/24 16:00 09/18/24 16:00 Temperature 98.0 F Pulse Rate 85 88 90 Pulse Rate [Right Radial Palpation] 88 Respiratory Rate 16 Blood Pressure 94/59 L 108/71 113/68 Pulse Oximetry 95 Oxygen Delivery 09/18/24 16:00 09/18/24 16:00 09/18/24 16:00 Temperature 98.3 F Pulse Rate 88 84 Pulse Rate [Right Radial Palpation] Respiratory Rate 16 Blood Pressure 127/62 Pulse Oximetry 96 95 Oxygen Delivery Room Air 09/18/24 16:00 09/18/24 16:15 09/18/24 16:30 Temperature Pulse Rate 88 88 84 Pulse Rate [Right Radial Palpation] Respiratory Rate Blood Pressure 108/71 113/68 100/64 Pulse Oximetry Oxygen Delivery 09/18/24 16:40 09/18/24 16:45 09/18/24 17:09 Temperature 97.8 F Pulse Rate 83 94 93 Pulse Rate [Right Radial Palpation] Respiratory Rate 16 Blood Pressure 127/62 129/58 L 115/55 L Pulse Oximetry 98 Oxygen Delivery 09/18/24 17:32 09/18/24 18:00 09/18/24 18:00 Temperature Pulse Rate 84 93 91 Pulse Rate [Right Radial Palpation] Respiratory Rate Blood Pressure 100/50 L 106/59 L Pulse Oximetry Oxygen Delivery 09/18/24 18:00 09/18/24 20:00 09/18/24 20:00 Temperature 98.6 F Pulse Rate 91 90 Pulse Rate [Right Radial Palpation] 88 Respiratory Rate 16 18 Blood Pressure 98/64 L 96/59 L Pulse Oximetry 93 91 Oxygen Delivery 09/18/24 20:00 09/18/24 20:00 09/18/24 20:00 Temperature Pulse Rate 90 91 Pulse Rate [Right Radial Palpation] Respiratory Rate Blood Pressure 96/59 L Pulse Oximetry 93 Oxygen Delivery Room Air 09/18/24 22:00 09/18/24 22:00 09/18/24 22:00 Temperature Pulse Rate 87 86 86 Pulse Rate [Right Radial Palpation] Respiratory Rate 18 Blood Pressure 96/55 L 96/55 L Pulse Oximetry 95 Oxygen Delivery 09/19/24 00:00 09/19/24 00:00 09/19/24 00:00 Temperature 98.5 F Pulse Rate 89 Pulse Rate [Right Radial Palpation] 88 Respiratory Rate 16 Blood Pressure 95/58 L Pulse Oximetry 93 93 Oxygen Delivery Room Air 09/19/24 00:00 09/19/24 00:00 09/19/24 02:00 Temperature Pulse Rate 87 87 85 Pulse Rate [Right Radial Palpation] Respiratory Rate Blood Pressure 95/58 L Pulse Oximetry Oxygen Delivery 09/19/24 02:00 09/19/24 02:05 09/19/24 04:00 Temperature Pulse Rate 85 87 Pulse Rate [Right Radial Palpation] 88 Respiratory Rate 15 Blood Pressure 101/57 L 101/57 L Pulse Oximetry 95 Oxygen Delivery 09/19/24 04:00 09/19/24 04:00 09/19/24 04:00 Temperature 97.8 F Pulse Rate 88 84 Pulse Rate [Right Radial Palpation] Respiratory Rate 16 Blood Pressure 97/57 L Pulse Oximetry 93 94 Oxygen Delivery Room Air 09/19/24 04:00 09/19/24 06:00 09/19/24 06:00 Temperature Pulse Rate 87 87 85 Pulse Rate [Right Radial Palpation] Respiratory Rate 12 Blood Pressure 97/57 L 91/60 L Pulse Oximetry 91 Oxygen Delivery 09/19/24 06:00 09/19/24 08:00 09/19/24 08:00 Temperature 98.2 F Pulse Rate 85 89 Pulse Rate [Right Radial Palpation] Respiratory Rate 12 Blood Pressure 91/60 L 100/59 L Pulse Oximetry 97 Oxygen Delivery Room Air 09/19/24 08:00 09/19/24 10:00 09/19/24 10:00 Temperature 98.0 F Pulse Rate 89 87 87 Pulse Rate [Right Radial Palpation] Respiratory Rate 8 L Blood Pressure 83/74 L Pulse Oximetry 96 Oxygen Delivery 09/19/24 12:00 09/19/24 12:00 09/19/24 12:00 Temperature 98.0 F Pulse Rate 91 92 Pulse Rate [Right Radial Palpation] Respiratory Rate 13 Blood Pressure 142/64 H Pulse Oximetry 96 93 Oxygen Delivery Room Air 09/19/24 12:50 09/19/24 12:50 09/19/24 13:10 Temperature 98.3 F 98.3 F Pulse Rate 89 89 88 Pulse Rate [Right Radial Palpation] Respiratory Rate 16 16 Blood Pressure 142/64 H 142/64 H 98/63 L Pulse Oximetry 93 93 Oxygen Delivery 09/19/24 13:30 09/19/24 13:45 09/19/24 14:00 Temperature Pulse Rate 89 89 81 Pulse Rate [Right Radial Palpation] Respiratory Rate Blood Pressure 104/64 109/66 108/64 Pulse Oximetry Oxygen Delivery 09/19/24 14:00 09/19/24 14:15 09/19/24 14:30 Temperature 98.1 F Pulse Rate 81 89 87 Pulse Rate [Right Radial Palpation] Respiratory Rate 17 Blood Pressure 108/64 104/63 100/64 Pulse Oximetry 96 Oxygen Delivery 09/19/24 14:45 Temperature Pulse Rate 93 Pulse Rate [Right Radial Palpation] Respiratory Rate Blood Pressure 111/61 Pulse Oximetry Oxygen Delivery Intake/Output Intake/Output: Intake & Output 09/16/24 09/17/24 09/18/24 09/19/24 23:59 23:59 23:59 23:59 Intake Total 1272.3 691.1 1825.9 360 Output Total 0 0 1750 Balance 1272.3 691.1 75.9 360 Meds/Results Medications: Active Medications Generic Name Dose Route Start Last Admin Trade Name Freq PRN Reason Stop Dose Admin Acetaminophen 650 mg 09/16/24 12:39 Acetaminophen 325 Mg Tablet PO Q4H PRN Mild Pain (1-3) Al Hydrox/Mg Hydrox/Simethicone 30 ml 09/16/24 12:39 Mag Hydrox/Al Hydrox/Simeth 30 Ml Udc PO Q6H PRN Indigestion Aspirin 81 mg 09/17/24 08:00 09/19/24 08:50 Aspirin 81 Mg Chewable Tablet PO 81 mg DAILY@0800 ROSALINDA Administration Albumin Human 50 mls @ 999 mls/hr 09/16/24 11:49 Albutein IVPB 10/16/24 11:48 Q10M PRN HYPOTENSION Norepinephrine Bitartrate 8 mg in 250 mls @ 0 mls/hr 09/17/24 19:30 09/19/24 06:00 Levophed 8 Mg/D5w 250 Ml IV CONT 0 mcg/min .Q0M ROSALINDA 0 mls/hr Titration Protocol 0 MCG/MIN Levothyroxine Sodium 100 mcg 09/17/24 09:00 09/19/24 08:50 Levothyroxine Sodium 100 Mcg Tablet PO 100 mcg DAILY ROSALINDA Administration Nitroglycerin 0.4 mg 09/16/24 12:39 09/17/24 12:41 Nitroglycerin Sl 0.4 Mg Tablet SUBLINGUAL 0.4 mg Q5MIN PRN Administration Chest Pain Ondansetron HCl 4 mg 09/16/24 09:08 09/17/24 19:35 Ondansetron Inj 4 Mg/2 Ml Vial IV PUSH 4 mg Q4H PRN Administration Nausea Pantoprazole Sodium 40 mg 09/18/24 09:00 09/19/24 08:50 Pantoprazole Sodium Iv 40 Mg Vial IV PUSH 40 mg Q12HR ROSALINDA Administration Phenol 1 spray 09/19/24 13:54 Phenol/Sod Pheno Nazlini Gray (*Bkc) MUCOUS MEM PRN PRN Sore Throat Polyethylene Glycol 17 gm 09/18/24 09:00 09/19/24 08:52 Polyethylene Glycol 3350 17 Gm Powd.Pack PO Not Given QAM ROSALINDA Rosuvastatin Calcium 5 mg 09/17/24 09:00 09/19/24 08:50 Rosuvastatin 5 Mg Tablet PO 5 mg DAILY ROSALINDA Administration Senna/Docusate Sodium 1 tab 09/18/24 21:00 09/18/24 20:20 Senna/Docusate Sodium Tablet PO 1 tab HS ROSALINDA Administration Ticagrelor 90 mg 09/18/24 09:00 09/19/24 08:50 Ticagrelor 90 Mg Tablet PO 90 mg Q12HR ROSALINDA Administration Radiology Results: ITS Impressions Chest X-Ray 09/19/24 06:45 IMPRESSION: 1. No significant change in subtle interstitial and airspace opacities in the mid and lower lung zones which could represent mild pulmonary edema or pneumon ia. Labs Labs: Laboratory Results - last 24 hr 09/18/24 09/19/24 09/19/24 17:51 03:28 08:44 WBC 9.1 RBC 2.80 L Hgb 8.7 L 8.3 L Hct 26.0 L 25.2 L MCV 90.0 MCH 29.6 D MCHC 32.9 RDW 15.9 H Plt Count 164 MPV 10.5 H Immature Gran % (Auto) 1.3 H Neut % (Auto) 79.1 H Lymph % (Auto) 8.8 L Park % (Auto) 8.7 H Eos % (Auto) 1.7 Baso % (Auto) 0.4 Lymph # (Auto) 0.80 L [place] # (Auto) 0.8 H Eos # (Auto) 0.2 Baso # (Auto) 0.0 Abs Immat Gran (auto) 0.12 H Absolute Neuts (auto) 7.2 H Absolute Nucleated RBC 0.000 Nucleated RBC % 0.0 Sodium 135 L Potassium 3.9 Chloride 100 Carbon Dioxide 27 Anion Gap 8 BUN 56 H D Creatinine 6.24 H Estim Creat Clear Calc 10 Estimated GFR 9 L Glucose 107 Calcium 8.3 L Phosphorus 4.3 Magnesium 2.1 Total Bilirubin 0.9 AST 168 H ALT 241 H Alkaline Phosphatase 61 Total Protein 5.2 L Albumin 2.8 L Stl Occult Blood (IFOB) Positive H
[2024-09-19] MEDS: SENNA/DOCUSATE SODIUM TABLET 1 TAB PO (20:57)
[2024-09-20] VITALS (13 sets, daily range): BP systolic 92–118; BP diastolic 50–70; PULSE 70–88; RESP 12–21; TEMP 36.6–36.9; O2SAT 91–98
[2024-09-20 04:10] LABS: Hematocrit 26.3 % (42.0-52.0); Hemoglobin 8.4 g/dL (14.0-18.0); Immature Granulocyte Percent A 1.3 % (0-0.5); Lymphocytes Absolute Auto 0.95 K/mm3 (0.9-3.2); Mean Corpuscular HGB Conc 31.9 g/dl (32-36); Mean Corpuscular Hemoglobin 29.7 pg (26-34); Mean Corpuscular Volume 92.9 fl (80-100); Nucleated Red Blood Cells Absolute Auto 0.050 K/mm3 (0.0-0.012); Nucleated Red Blood Cells Perc 0.4 % (0.0-0.2); Platelet Count Result 195 k/mm3 (150-375); Red Blood Count 2.83 M/mm3 (4.6-6.20); White Blood Count 11.3 K/mm3 (4.5-10.0)
[2024-09-20 04:26] LABS: Alanine Aminotransferase 234 U/L (6-50); Albumin Level 3.0 g/dL (3.5-5.1); Alkaline Phosphatase 68 U/L (38-126); Anion Gap 6 mmol/L (4-12); Aspartate Amino Transferase 152 U/L (17-59); Bilirubin,Total 1.0 mg/dL (0.2-1.3); Blood Urea Nitrogen 43 mg/dL (9-20); Calcium 8.7 mg/dL (8.4-10.2); Carbon Dioxide 31 mmol/L (22-30); Chloride 98 mmol/L (98-107); Estimated CRCL calculation 12 ml/min; Estimated Glomerular Filt Rate 11; Glucose 106 mg/dL (65-110); Magnesium 2.1 mg/dL (1.6-2.3); Potassium 4.0 mmol/L (3.4-5.0); Sodium 135 mmol/L (137-145); Total Protein 5.5 g/dL (6.3-8.2)
[2024-09-20] MEDS: PANTOPRAZOLE SODIUM IV 40 MG VIAL IV PUSH ×2 (08:20→21:08)
[2024-09-20] MEDS: TICAGRELOR 90 MG TABLET PO ×2 (08:20→21:08)
[2024-09-20] MEDS: ROSUVASTATIN 5 MG TABLET PO (08:20)
[2024-09-20] MEDS: LEVOTHYROXINE SODIUM 100 MCG TABLET PO (08:20)
[2024-09-20] MEDS: ASPIRIN 81 MG CHEWABLE TABLET PO (08:20)
[2024-09-20] MEDS: MIDODRINE HCL 2.5 MG TABLET 5 MG PO ×3 (09:12→17:38)
--- NOTE | 2024-09-20 10:13 | PM.PNCARD ---
Progress Note: A&P Assessment and Plan (1) NSTEMI (non-ST elevated myocardial infarction): Code(s): I21.4 - Non-ST elevation (NSTEMI) myocardial infarction Status: Acute Plan -NSTEMI -status post PCI to 99% ISR of ostial LCX (prior stent placed in 03/2024) on 09/17/24; chest pain-free post PCI ------TTE showed normal LVEF of 60%, mild aortic stenosis-Elevated BNP of 8710 -ANNA MARIE with creatinine of 20 at presentation- getting dialyzed again today -Anemia- Hemoglobin in the low 8 -Hypotension-SBP in the 90s to low 100s. Levophed stopped. Midodrine started per ICU Plan: -Patient had ISR of his ostial LCX stent that was placed in 03/2024 status post PCI yesterday with 3.5 mm X 18 mm [employer] bee [place] JESÚS (please see cath report for full details of procedure). He is at high risk for recurrent restenoses given ISR of recent stent. Recommend DAPT with aspirin 81 mg daily and ticagrelor 90 mg b.i.d. for longer than 1 year if he is able to tolerate it without any bleeding issues -will increase his rosuvastatin to 10 mg daily. LFTs continue to show slow but gradual improvement. -Check H&H daily and keep hemoglobin greater than 8 -warfarin after off -Hold all antihypertensive meds. Start Metoprolol 12.5 mg p.o. b.i.d. when SBP greater than 110 mm Hg off Levophed -Check and replace electrolytes to keep potassium greater than 4 and magnesium greater than 2 Subjective Date/time seen: 09/20/24 10:13 Interval history: Reason for encounter: NSTEMI status post PCI to 99% thrombotic stenosis of ostial LCX on 09/17/2020 Interval history: No chest pain since PCI yesterday. No shortness of breath. He is on small dose of Levophed 7.5 microgram/minute with SBP in the 90s. He received 1 unit of PRBC transfusion and hemoglobin is still 7.2. Telemetry shows sinus rhythm. EKG shows sinus rhythm with no significant ST elevations or depressions. Date of service 09/19/2024: The Versed still on hold. Blood pressures are soft and stable. No chest pain or shortness of breath and states he feels much better overall Date of service 09/20/2024: Feeling fine. Tolerated dialysis without Levophed. No chest pain or shortness of breath. Review of Systems Cardiovascular: Cardiovascular: Denies chest pain, Denies diaphoresis and Denies pedal edema Exam Narrative: General: Alert oriented x3, no acute distress, laying flat due to dialysis catheter in the lower extremity Neck: Supple, no JVD Chest: Bilaterally clear to auscultation, no rales or rhonchi Cardiac: S1, S2 +, regular rate, regular rhythm, no murmurs or rubs Extremities: No pedal edema, no skin rash Neurologic: Alert and oriented x3, no focal neurological deficits Neuro: Cranial nerves: Yes Normal hearing present Objective Data Vital Signs Vital Signs: Vital Signs - 24 hr 09/19/24 12:00 09/19/24 12:00 09/19/24 12:00 Temperature 36.7 C Pulse Rate 91 92 Respiratory Rate 13 Blood Pressure 142/64 H Pulse Oximetry 96 93 Oxygen Delivery Room Air 09/19/24 12:00 09/19/24 12:50 09/19/24 12:50 Temperature 36.8 C 36.8 C Pulse Rate 92 89 89 Respiratory Rate 16 16 Blood Pressure 142/62 H 142/64 H 142/64 H Pulse Oximetry 93 93 Oxygen Delivery 09/19/24 13:10 09/19/24 13:30 09/19/24 13:45 Temperature Pulse Rate 88 89 89 Respiratory Rate Blood Pressure 98/63 L 104/64 109/66 Pulse Oximetry Oxygen Delivery 09/19/24 14:00 09/19/24 14:00 09/19/24 14:00 Temperature 36.7 C Pulse Rate 81 81 93 Respiratory Rate 17 Blood Pressure 108/64 108/64 Pulse Oximetry 96 Oxygen Delivery 09/19/24 14:00 09/19/24 14:15 09/19/24 14:30 Temperature Pulse Rate 91 89 87 Respiratory Rate Blood Pressure 108/64 104/63 100/64 Pulse Oximetry Oxygen Delivery 09/19/24 14:45 09/19/24 15:00 09/19/24 15:15 Temperature Pulse Rate 93 89 88 Respiratory Rate Blood Pressure 111/61 101/60 114/60 Pulse Oximetry Oxygen Delivery 09/19/24 15:30 09/19/24 15:45 09/19/24 16:00 Temperature Pulse Rate 90 96 94 Respiratory Rate Blood Pressure 86/66 L 99/63 L 107/67 Pulse Oximetry Oxygen Delivery 09/19/24 16:00 09/19/24 16:00 09/19/24 16:00 Temperature 36.5 C Pulse Rate 91 94 Respiratory Rate 17 Blood Pressure 107/67 107/67 Pulse Oximetry 94 95 Oxygen Delivery Room Air 09/19/24 16:00 09/19/24 16:15 09/19/24 16:30 Temperature Pulse Rate 92 93 94 Respiratory Rate Blood Pressure 104/72 101/68 Pulse Oximetry Oxygen Delivery 09/19/24 16:41 09/19/24 16:50 09/19/24 18:00 Temperature 36.8 C 36.6 C Pulse Rate 97 91 98 Respiratory Rate 15 16 Blood Pressure 101/67 101/49 L 89/53 L Pulse Oximetry 96 100 Oxygen Delivery 09/19/24 18:00 09/19/24 18:00 09/19/24 20:00 Temperature Pulse Rate 93 93 Respiratory Rate Blood Pressure 105/56 L Pulse Oximetry 94 Oxygen Delivery Room Air 09/19/24 20:00 09/19/24 20:00 09/19/24 22:00 Temperature 36.6 C Pulse Rate 91 93 87 Respiratory Rate 15 15 Blood Pressure 121/61 107/61 Pulse Oximetry 95 94 Oxygen Delivery 09/19/24 22:43 09/20/24 00:00 09/20/24 00:00 Temperature Pulse Rate 88 Respiratory Rate Blood Pressure Pulse Oximetry 95 94 Oxygen Delivery Room Air Room Air 09/20/24 00:00 09/20/24 02:00 09/20/24 03:50 Temperature 36.7 C Pulse Rate 88 79 Respiratory Rate 17 18 Blood Pressure 103/64 99/52 L Pulse Oximetry 92 92 94 Oxygen Delivery Room Air 09/20/24 04:00 09/20/24 04:00 09/20/24 05:58 Temperature 36.6 C Pulse Rate 85 85 85 Respiratory Rate 18 12 Blood Pressure 95/67 L 97/65 L Pulse Oximetry 91 98 Oxygen Delivery 09/20/24 07:39 09/20/24 08:00 09/20/24 08:00 Temperature 36.8 C Pulse Rate 83 88 Respiratory Rate 12 Blood Pressure 95/70 L Pulse Oximetry 97 Oxygen Delivery Room Air Intake/Output Intake/Output: Intake & Output 09/17/24 09/18/24 09/19/24 09/20/24 23:59 23:59 23:59 23:59 Intake Total 691.1 1825.9 1080 600 Output Total 0 1750 2000 0 Balance 691.1 75.9 -920 600 Meds/Results Medications: Active Medications Generic Name Dose Route Start Last Admin Trade Name Freq PRN Reason Stop Dose Admin Acetaminophen 650 mg 09/16/24 12:39 Acetaminophen 325 Mg Tablet PO Q4H PRN Mild Pain (1-3) Al Hydrox/Mg Hydrox/Simethicone 30 ml 09/16/24 12:39 Mag Hydrox/Al Hydrox/Simeth 30 Ml Udc PO Q6H PRN Indigestion Aspirin 81 mg 09/17/24 08:00 09/20/24 08:20 Aspirin 81 Mg Chewable Tablet PO 81 mg DAILY@0800 ROSALINDA Administration Albumin Human 50 mls @ 999 mls/hr 09/16/24 11:49 Albutein IVPB 10/16/24 11:48 Q10M PRN HYPOTENSION Levothyroxine Sodium 100 mcg 09/17/24 09:00 09/20/24 08:20 Levothyroxine Sodium 100 Mcg Tablet PO 100 mcg DAILY [facility] Administration Midodrine 5 mg 09/20/24 09:00 09/20/24 09:12 Midodrine Hcl 2.5 Mg Tablet PO 5 mg TID ROSALINDA Administration Nitroglycerin 0.4 mg 09/16/24 12:39 09/17/24 12:41 Nitroglycerin Sl 0.4 Mg Tablet SUBLINGUAL 0.4 mg Q5MIN PRN Administration Chest Pain Ondansetron HCl 4 mg 09/16/24 09:08 09/17/24 19:35 Ondansetron Inj 4 Mg/2 Ml Vial IV PUSH 4 mg Q4H PRN Administration Nausea Pantoprazole Sodium 40 mg 09/18/24 09:00 09/20/24 08:20 Pantoprazole Sodium Iv 40 Mg Vial IV PUSH 40 mg Q12HR ROSALINDA Administration Phenol 1 spray 09/19/24 13:54 Phenol/Sod Pheno [place] (*Bkc) MUCOUS MEM PRN PRN Sore Throat Polyethylene Glycol 17 gm 09/18/24 09:00 09/20/24 09:02 Polyethylene Glycol 3350 17 Gm Powd.Pack PO Not Given QAM ROSALINDA Rosuvastatin Calcium 5 mg 09/17/24 09:00 09/20/24 08:20 Rosuvastatin 5 Mg Tablet PO 5 mg DAILY ROSALINDA Administration Senna/Docusate Sodium 1 tab 09/18/24 21:00 09/19/24 20:57 Senna/Docusate Sodium Tablet PO 1 tab HS ROSALINDA Administration Ticagrelor 90 mg 09/18/24 09:00 09/20/24 08:20 Ticagrelor 90 Mg Tablet PO 90 mg Q12HR ROSALINDA Administration Radiology Results: ITS Impressions Chest X-Ray 09/20/24 06:33 Impression: Mild interstitial prominence, nonspecific, similar to prior exam. Correlate for mild interstitial edema or chronic interstitial disease or COPD. Labs Labs: Laboratory Results - last 24 hr 09/20/24 03:53 WBC 11.3 H RBC 2.83 L Hgb 8.4 L Hct 26.3 L MCV 92.9 MCH 29.7 MCHC 31.9 L RDW 16.0 H Plt Count 195 MPV 10.9 H Immature Gran % (Auto) 1.3 H Neut % (Auto) 78.5 H Lymph % (Auto) 8.4 L [place] % (Auto) 7.8 Eos % (Auto) 3.6 Baso % (Auto) 0.4 Lymph # (Auto) 0.95 [place] # (Auto) 0.9 H Eos # (Auto) 0.4 H Baso # (Auto) 0.1 Abs Immat Gran (auto) 0.15 H Absolute Neuts (auto) 8.8 H Absolute Nucleated RBC 0.050 H Nucleated RBC % 0.4 H Sodium 135 L Potassium 4.0 Chloride 98 Carbon Dioxide 31 H Anion Gap 6 BUN 43 H D Creatinine 5.20 H Estim Creat Clear Calc 12 Estimated GFR 11 L Glucose 106 Calcium 8.7 Phosphorus 3.2 Magnesium 2.1 Total Bilirubin 1.0 AST 152 H ALT 234 H Alkaline Phosphatase 68 Total Protein 5.5 L Albumin 3.0 L Hep B Core Total Ab Cancelled
--- NOTE | 2024-09-20 10:22 | WPDINTPN ---
Progress Note: A&P Assessment and Plan (1) NSTEMI (non-ST elevated myocardial infarction): Code(s): I21.4 - Non-ST elevation (NSTEMI) myocardial infarction Status: Acute Assessment and Plan: 09/16: Patient presented with generalized weakness, chest pain. Was found to be in acute on chronic renal failure with creatinine of 20 and BUN of 161. -troponins peaked at 5.05 -09/17: status post PTCA/PCI with JESÚS x1 to left circumflex which had a 99% in stent restenoses of the ostial circumflex -continue aspirin, ticagrelor, rosuvastatin -patient did have cardiogenic shock on the cardiac cath table requiring Kyrie-Synephrine, started on Levophed which is being weaned, maintain MAP 60-65 mmHg per Cardiology -off Levophed since the evening of 09/18 -09/18: hemoglobin 7.3 this morning, cardiology requested 1 unit of packed RBCs to to keep hemoglobin > 8.0 -cardiology following the patient 09/17/2024: Echocardiogram: Summary 1. Complete two-dimensional, color flow and Doppler transthoracic echocardiogram is performed. 2. This was a technically difficult study with poorly visualized acoustic windows and limited views. 3. There is normal biventricular size and systolic function. EF 60-65%, normal RV systolic function. 4. There is at least mild aortic stenosis. Due to limited windows and poorly visualized acoustic views, unable to quantify the degree of aortic stenosis in this study. (2) Acute on chronic renal failure: Qualifiers: Acute renal failure type: unspecified Chronic kidney disease stage: unspecified stage Qualified Code(s): N17.9 - Acute kidney failure, unspecified; N18.9 - Chronic kidney disease, unspecified Code(s): N17.9 - Acute kidney failure, unspecified; N18.9 - Chronic kidney disease, unspecified Status: Acute Assessment and Plan: Patient presented with generalized weakness, decreased appetite and p.o. intake. He did continue to take his blood pressure medications -creatinine was 20.08, BUN was 164 potassium was 6.0 on admission -could be related to low flow state due to hypotension, coronary artery disease, decreased p.o. intake, low flow state -09/16: Dialysis catheter was placed by surgery more right femoral vein -09/16: Nephrology was consulted and started on dialysis -09/17, 09/18: Dialyzed -patient is anuric, BUN creatinine trending down, -patient to get dialyzed again today after discussing with Nephrology -09/19: Temporary dialysis catheter was removed after discussion with Nephrology -09/19: Nephrology has consulted surgery to place tunneled dialysis catheter -09/20: will add midodrine 5 mg t.i.d. due to borderline blood pressure (3) Anemia: Qualifiers: Anemia type: due to chronic kidney disease Chronic kidney disease stage: unspecified stage Qualified Code(s): N18.9 - Chronic kidney disease, unspecified; D63.1 - Anemia in chronic kidney disease Code(s): D64.9 - Anemia, unspecified Status: Acute Assessment and Plan: Patient anemic on admission, hemoglobin was 9.0 (hemoglobin in March was 12.1) -09/17: Transfused 1 unit of packed RBCs -09/18: Hemoglobin 7.3 this morning, cardiology requested 1 unit of packed RBCs to maintain Hb > 8.0 since he has coronary artery disease. Transfused 1 unit of packed RBCs -patient denies any regular NSAID use -denies any dark stools or coffee-ground emesis, hematemesis, hematochezia -history of removal of colonic polyp on 05/10/2022 you on a colonoscopy done here at [facility] -no iron deficiency on iron panel -vitamin B12 and folate were normal -stool for occult blood was positive -appreciate GI evaluation and recommendation -Protonix IV q.12 hours -09/19: Patient did have melanotic stool. -hemoglobin remained stable, discuss with Cardiology, will continue to monitor (4) Coronary artery disease: Code(s): I25.10 - Atherosclerotic heart disease of [place] coronary artery without angina pectoris Status: Acute Assessment and Plan: Patient has a history of coronary artery disease and stent x2 in March 2024 at [facility] (5) Hypertension: Code(s): I10 - Essential (primary) hypertension Status: Acute Assessment and Plan: History of essential hypertension, will hold antihypertensives. Recent vasopressor use, -blood pressure is currently stable -midodrine added (6) Transaminitis: Code(s): R74.01 - Elevation of levels of liver transaminase levels Status: Acute Assessment and Plan: Elevated LFTs likely related to coronary artery disease, renal function, hypotension, low-flow state -LFTs improving with better blood pressures and adequate perfusion -continue to monitor (7) Electrolyte imbalance: Code(s): E87.8 - Other disorders of electrolyte and fluid balance, not elsewhere classified Status: Acute Assessment and Plan: Hyperkalemia on admission has resolved with dialysis, continue to monitor Plan DVT prophylaxis: SCDs for now since patient is anemia Stress ulcer prophylaxis: Protonix IV q.12 hours Nutrition: Renal and heart healthy diet Code Status: Full code Critical Care Time Spent: 32 minutes Patient to be transferred out of the ICU per Cardiology Discussed with patient and his at bedside, updated with patient's condition and plan of care. I answered all question Due to a high probability of clinically significant, life threatening deterioration, the patient required my highest level of preparedness to intervene emergently and I personally spent this critical care time directly and personally managing the patient. This critical care time included obtaining a history; examining the patient; pulse oximetry; ordering and review of studies; arranging urgent treatment with development of a management plan; evaluation of patient's response to treatment; frequent reassessment; and discussions with other providers. It was exclusive of separately billable procedures and treating other patients and teaching time. Please see Assessment and Plan section and the rest of the note for further information on patient assessment and treatment This dictation may have been done utilizing a voice recognition system. Attempts have been made to correct errors. However, there may be uncorrected grammatical, spelling, and recognitions errors present. Subjective Date/time seen: 09/20/24 10:22 Interval history: Reason for consult: acute kidney injury, NSTEMI status post PTCA/PCI with JESÚS x1 to left circumflex which had a 99% in stent restenoses of the ostial circumflex 09/16: Dialysis catheter was placed and started on dialysis 09/17 & 09/18: Received 1 unit of packed RBCs on each day 09/20/2024: Patient seen and examined the ICU, has been off Levophed for about 48 hrs. Hemodynamically stable, afebrile. Afebrile, anuric. Dialyzed yesterday with 2000 mL in fluid removal. Patient is awake, alert, orientedx3. Denies any chest pain, shortness of breath, nausea, vomiting, diarrhea. Review of Systems Review of Systems: All systems reviewed & are unremarkable except as noted in HPI and below Exam Narrative: General: Pleasant gentleman in no acute distress HEENT:? Pupils equal and reactive, sclera is clear Neck:? Supple Respiratory:? Coarse breath sounds on the right side as compared to the left, no wheezing, adequate air entry Cardiac:? S1-S2 is normal, regular rate and rhythm Abdomen:? Soft, nontender, nondistended, normoactive bowel sound Extremities:? Trace edema, palpable pedal pulses. Right radial artery palpable, no evidence of hematoma or ecchymoses on the right wrist at the site of catheterization Neuro:? Patient is awake, alert, oriented, nonfocal, able to answer questions appropriately and follows simple commands Skin:? No lesions noted, Psych:? Normal mentation and affect Objective Data Vital Signs Vital Signs: Vital Signs - 24 hr 09/19/24 12:00 09/19/24 12:00 09/19/24 12:00 Temperature 98.0 F Pulse Rate 91 92 Respiratory Rate 13 Blood Pressure 142/64 H Pulse Oximetry 96 93 Oxygen Delivery Room Air 09/19/24 12:00 09/19/24 12:50 09/19/24 12:50 Temperature 98.3 F 98.3 F Pulse Rate 92 89 89 Respiratory Rate 16 16 Blood Pressure 142/62 H 142/64 H 142/64 H Pulse Oximetry 93 93 Oxygen Delivery 09/19/24 13:10 09/19/24 13:30 09/19/24 13:45 Temperature Pulse Rate 88 89 89 Respiratory Rate Blood Pressure 98/63 L 104/64 109/66 Pulse Oximetry Oxygen Delivery 09/19/24 14:00 09/19/24 14:00 09/19/24 14:00 Temperature 98.1 F Pulse Rate 81 81 93 Respiratory Rate 17 Blood Pressure 108/64 108/64 Pulse Oximetry 96 Oxygen Delivery 09/19/24 14:00 09/19/24 14:15 09/19/24 14:30 Temperature Pulse Rate 91 89 87 Respiratory Rate Blood Pressure 108/64 104/63 100/64 Pulse Oximetry Oxygen Delivery 09/19/24 14:45 09/19/24 15:00 09/19/24 15:15 Temperature Pulse Rate 93 89 88 Respiratory Rate Blood Pressure 111/61 101/60 114/60 Pulse Oximetry Oxygen Delivery 09/19/24 15:30 09/19/24 15:45 09/19/24 16:00 Temperature Pulse Rate 90 96 94 Respiratory Rate Blood Pressure 86/66 L 99/63 L 107/67 Pulse Oximetry Oxygen Delivery 09/19/24 16:00 09/19/24 16:00 09/19/24 16:00 Temperature 97.7 F Pulse Rate 91 94 Respiratory Rate 17 Blood Pressure 107/67 107/67 Pulse Oximetry 94 95 Oxygen Delivery Room Air 09/19/24 16:00 09/19/24 16:15 09/19/24 16:30 Temperature Pulse Rate 92 93 94 Respiratory Rate Blood Pressure 104/72 101/68 Pulse Oximetry Oxygen Delivery 09/19/24 16:41 09/19/24 16:50 09/19/24 18:00 Temperature 98.2 F 97.8 F Pulse Rate 97 91 98 Respiratory Rate 15 16 Blood Pressure 101/67 101/49 L 89/53 L Pulse Oximetry 96 100 Oxygen Delivery 09/19/24 18:00 09/19/24 18:00 09/19/24 20:00 Temperature Pulse Rate 93 93 Respiratory Rate Blood Pressure 105/56 L Pulse Oximetry 94 Oxygen Delivery Room Air 09/19/24 20:00 09/19/24 20:00 09/19/24 22:00 Temperature 97.8 F Pulse Rate 91 93 87 Respiratory Rate 15 15 Blood Pressure 121/61 107/61 Pulse Oximetry 95 94 Oxygen Delivery 09/19/24 22:43 09/20/24 00:00 09/20/24 00:00 Temperature Pulse Rate 88 Respiratory Rate Blood Pressure Pulse Oximetry 95 94 Oxygen Delivery Room Air Room Air 09/20/24 00:00 09/20/24 02:00 09/20/24 03:50 Temperature 98.1 F Pulse Rate 88 79 Respiratory Rate 17 18 Blood Pressure 103/64 99/52 L Pulse Oximetry 92 92 94 Oxygen Delivery Room Air 09/20/24 04:00 09/20/24 04:00 09/20/24 05:58 Temperature 98 F Pulse Rate 85 85 85 Respiratory Rate 18 12 Blood Pressure 95/67 L 97/65 L Pulse Oximetry 91 98 Oxygen Delivery 09/20/24 07:39 09/20/24 08:00 09/20/24 08:00 Temperature 98.2 F Pulse Rate 83 88 Respiratory Rate 12 Blood Pressure 95/70 L Pulse Oximetry 97 Oxygen Delivery Room Air Intake/Output Intake/Output: Intake & Output 07/10/25 09/18/24 09/19/24 09/20/24 23:59 23:59 23:59 23:59 Intake Total 691.1 1825.9 1080 600 Output Total 0 1750 2000 0 Balance 691.1 75.9 -920 600 Meds/Results Medications: Active Medications Generic Name Dose Route Start Last Admin Trade Name Freq PRN Reason Stop Dose Admin Acetaminophen 650 mg 09/16/24 12:39 Acetaminophen 325 Mg Tablet PO Q4H PRN Mild Pain (1-3) Al Hydrox/Mg Hydrox/Simethicone 30 ml 09/16/24 12:39 Mag Hydrox/Al Hydrox/Simeth 30 Ml Udc PO Q6H PRN Indigestion Aspirin 81 mg 09/17/24 08:00 09/20/24 08:20 Aspirin 81 Mg Chewable Tablet PO 81 mg DAILY@0800 ROSALINDA Administration Albumin Human 50 mls @ 999 mls/hr 09/16/24 11:49 Albutein IVPB 10/16/24 11:48 Q10M PRN HYPOTENSION Levothyroxine Sodium 100 mcg 09/17/24 09:00 09/20/24 08:20 Levothyroxine Sodium 100 Mcg Tablet PO 100 mcg DAILY [facility] Administration Midodrine 5 mg 09/20/24 09:00 09/20/24 09:12 Midodrine Hcl 2.5 Mg Tablet PO 5 mg TID ROSALINDA Administration Nitroglycerin 0.4 mg 09/16/24 12:39 09/17/24 12:41 Nitroglycerin Sl 0.4 Mg Tablet SUBLINGUAL 0.4 mg Q5MIN PRN Administration Chest Pain Ondansetron HCl 4 mg 09/16/24 09:08 09/17/24 19:35 Ondansetron Inj 4 Mg/2 Ml Vial IV PUSH 4 mg Q4H PRN Administration Nausea Pantoprazole Sodium 40 mg 09/18/24 09:00 09/20/24 08:20 Pantoprazole Sodium Iv 40 Mg Vial IV PUSH 40 mg Q12HR ROSALINDA Administration Phenol 1 spray 09/19/24 13:54 Phenol/Sod Pheno [place] (*Bkc) MUCOUS MEM PRN PRN Sore Throat Polyethylene Glycol 17 gm 09/18/24 09:00 09/20/24 09:02 Polyethylene Glycol 3350 17 Gm Powd.Pack PO Not Given QAM [facility] Rosuvastatin Calcium 10 mg 09/21/24 09:00 Rosuvastatin 10 Mg Tablet PO DAILY ROSALINDA Senna/Docusate Sodium 1 tab 09/18/24 21:00 09/19/24 20:57 Senna/Docusate Sodium Tablet PO 1 tab HS ROSALINDA Administration Ticagrelor 90 mg 09/18/24 09:00 09/20/24 08:20 Ticagrelor 90 Mg Tablet PO 90 mg Q12HR ROSALINDA Administration Radiology Results: ITS Impressions Chest X-Ray 09/20/24 06:33 Impression: Mild interstitial prominence, nonspecific, similar to prior exam. Correlate for mild interstitial edema or chronic interstitial disease or COPD. Labs Labs: Laboratory Results - last 24 hr 09/20/24 03:53 WBC 11.3 H RBC 2.83 L Hgb 8.4 L Hct 26.3 L MCV 92.9 MCH 29.7 MCHC 31.9 L RDW 16.0 H Plt Count 195 MPV 10.9 H Immature Gran % (Auto) 1.3 H Neut % (Auto) 78.5 H Lymph % (Auto) 8.4 L [place] % (Auto) 7.8 Eos % (Auto) 3.6 Baso % (Auto) 0.4 Lymph # (Auto) 0.95 [place] # (Auto) 0.9 H Eos # (Auto) 0.4 H Baso # (Auto) 0.1 Abs Immat Gran (auto) 0.15 H Absolute Neuts (auto) 8.8 H Absolute Nucleated RBC 0.050 H Nucleated RBC % 0.4 H Sodium 135 L Potassium 4.0 Chloride 98 Carbon Dioxide 31 H Anion Gap 6 BUN 43 H D Creatinine 5.20 H Estim Creat Clear Calc 12 Estimated GFR 11 L Glucose 106 Calcium 8.7 Phosphorus 3.2 Magnesium 2.1 Total Bilirubin 1.0 AST 152 H ALT 234 H Alkaline Phosphatase 68 Total Protein 5.5 L Albumin 3.0 L Hep B Core Total Ab Cancelled Quality VTE Prophylaxis VTE prophylaxis: mechanical ordered
--- NOTE | 2024-09-20 10:30 | P.PNNP_ITS ---
Progress Note: A&P Assessment and Plan (1) Acute kidney injury: Code(s): N17.9 - Acute kidney failure, unspecified Status: Acute Assessment and Plan: * etiology not clear * significant decline in renal function/creatinine noted by labs on admission * suspect/possibly due to hypotension +/- cardiac event/NSTEMI * evaluation to date noted: * renal ultrasound in July 2024 was normal * unable to check urine studies since anuric * due to hyperkalemia, severe acidosis, and possible uremia, initiated on dialysis (09/16) * s/p temporary femoral line by Surgery * HD on 09/16, 09/17, 09/18, and 09/19 * likely next HD session on 09/22 (if tunneled HD catheter placed at that time) * plan tunneled HD catheter next week * follow trend of electrolytes, acidosis, and clearance * follow trend of repeat labs and UOP to assess for potential recovery (2) Chronic kidney disease: Code(s): N18.9 - Chronic kidney disease, unspecified Status: Chronic Assessment and Plan: * specifics are not clear... * according to patient, last testing ~ 1 month ago noted his kidney function at 40% * last creatinine here in March 2024 was 1.28mg/dl * attempting to obtain records from primary conveyor feeder offbearer (Dr. Robert Shultz) regarding baseline kidney function and what evaluation has been done * records still not available for review (3) NSTEMI (non-ST elevated myocardial infarction): Code(s): I21.4 - Non-ST elevation (NSTEMI) myocardial infarction Status: Acute Assessment and Plan: * elevated troponins and admission EKG noted * s/p heparin gtt * Cardiology following * s/p cardiac catheterization (09/17) with findings/interventions noted: * left main coronary artery is widely patent without any significant obstructive disease; prior stent in left main from 03/2024 is widely patent * LAD and the diagonal branches have mild luminal irregularities without any significant obstructive angiographic disease; prior stent in the proximal LAD from 03/2024 is widely patent * left circuflex with 99% instent restenoses (stent was placed in 03/2024) of ostial LCX; there is 60% calcified stenosis in mid LCX; distal LCX is very tiny and diffusely diseased; OM branches have minor luminal irregularities; following initial diagnostic image of the left system the flow in LCX decreased from RHODA 3 to RHODA 1 due to significant ostial LCX stenosis * proximal RCA has 30% stenosis; Right dominant circulation; distal RCA, RPDA, and RPLA appear diffusely thready without any focal stenosis due to spasm * status post successful IVUS guided PCI to 99% InStent restenoses of ostial LCX (culprit for patient's presentation) with 3.5 mm X 18 mm [employer] bee [place] JESÚS followed by post-dilation with a 3.5 mm X 15 mm NC balloon, KBI with 3.5 mm X 15 mm NC balloon in LCX and 3.5 mm X 15 mm NC balloon in LAD, and final POT with 4.0 mm X 15 mm NC balloon balloon * on ASA and ticagrelor * on statin * start BB when BP allows * continue medical management (4) Hyperkalemia: Code(s): E87.5 - Hyperkalemia Status: Acute Assessment and Plan: * resolved 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/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 * noted on admission * resistant to medical therapy with ER interventions * follow trend of K+ (5) Metabolic acidosis: Code(s): E87.20 - Acidosis, unspecified Status: Acute Assessment and Plan: * improvement/corrected with dialysis * presumably due to severity of ANNA MARIE * lactic acid normal (6) Anemia: Qualifiers: Anemia type: due to chronic kidney disease Chronic kidney disease stage: unspecified stage Qualified Code(s): N18.9 - Chronic kidney disease, unspecified; D63.1 - Anemia in chronic kidney disease Code(s): D64.9 - Anemia, unspecified Status: Acute Assessment and Plan: * presumably related to ANNA MARIE +/- CKD and acute illness * PRBC transfusion per protocol * 2 units since admission * Epogen with HD * anemia studies with adequate iron stores; b12 and folate acceptable * seen by GI with recommendations noted * no plans for EGD at this time * follow trend of H/H (7) Hypertension: Code(s): I10 - Essential (primary) hypertension Status: Chronic Assessment and Plan: * soft since admission * was on low dose levophed gtt post cardiac catheterization * wean off 09/19 * started om midodrine * follow trend of hemodynamics (8) Transaminitis: Code(s): R74.01 - Elevation of levels of liver transaminase levels Status: Acute Assessment and Plan: * as noted by admission labs * presumably due cardiac event and subsequent hypoperfusion (?) * slow improvement noted * follow trend Will continue to follow. L Subjective Date/time seen: 09/20/24 10:30 Interval history: Follow-up for acute kidney injury/acute renal failure on chronic kidney disease (requiring FUNERAL DRIVER/hemodialysis) Tolerated dialysis treatment yesterday afternoon without any issues or problems; remains hemodynamically stable without the need for vasopressor therapy; no other acute issues/events overnight or earlier this morning; still not making any urine (anuric); no apparent distress voiced at the time of my visit. Exam 2 Narrative: General: elderly but WD/WN male in NAD Heart: normal S1 and S2; no rub Lungs: clear to auscultation Abdomen: soft, nontender, nondistended, positive bowel sounds Extremities: no cyanosis or clubbing; no edema Skin: no nodules Objective Data Vital Signs Vital Signs: Vital Signs Temp Pulse Resp BP Pulse Ox O2 Del Method 09/20/24 10:00 86 14 102/60 97 09/20/24 08:00 98.2 F 83 12 95/70 L 97 09/20/24 07:39 Room Air 09/20/24 05:58 85 12 97/65 L 98 09/20/24 04:00 98 F 85 18 95/67 L 91 09/20/24 04:00 85 09/20/24 03:50 94 Room Air 09/20/24 02:00 79 18 99/52 L 92 09/20/24 00:00 98.1 F 88 17 103/64 92 09/20/24 00:00 88 09/20/24 00:00 94 Room Air 09/19/24 22:43 95 Room Air 09/19/24 22:00 87 15 107/61 94 09/19/24 20:00 93 09/19/24 20:00 97.8 F 91 15 121/61 95 09/19/24 20:00 94 Room Air 09/19/24 18:00 93 09/19/24 18:00 93 105/56 L 09/19/24 18:00 97.8 F 98 16 89/53 L 100 09/19/24 16:50 98.2 F 91 15 101/49 L 96 09/19/24 16:41 97 101/67 09/19/24 16:30 94 101/68 09/19/24 16:15 93 104/72 09/19/24 16:00 92 09/19/24 16:00 95 Room Air 09/19/24 16:00 94 107/67 09/19/24 16:00 97.7 F 91 17 107/67 94 09/19/24 16:00 94 107/67 09/19/24 15:45 96 99/63 L 09/19/24 15:30 90 86/66 L 09/19/24 15:15 88 114/60 09/19/24 15:00 89 101/60 09/19/24 14:45 93 111/61 09/19/24 14:30 87 100/64 09/19/24 14:15 89 104/63 09/19/24 14:00 91 108/64 09/19/24 14:00 93 09/19/24 14:00 98.1 F 81 17 108/64 96 09/19/24 14:00 81 108/64 09/19/24 13:45 89 109/66 09/19/24 13:30 89 104/64 09/19/24 13:10 88 98/63 L 09/19/24 12:50 98.3 F 89 16 142/64 H 93 09/19/24 12:50 98.3 F 89 16 142/64 H 93 Intake/Output Intake/Output: Intake & Output 09/17/24 09/18/24 09/19/24 09/20/24 23:59 23:59 23:59 23:59 Intake Total 691.1 1825.9 1080 600 Output Total 0 1750 2000 0 Balance 691.1 75.9 -920 600 Meds/Results Medications: Active Medications Generic Name Dose Route Start Last Admin Trade Name Freq PRN Reason Stop Dose Admin Acetaminophen 650 mg 09/16/24 12:39 Acetaminophen 325 Mg Tablet PO Q4H PRN Mild Pain (1-3) Al Hydrox/Mg Hydrox/Simethicone 30 ml 09/16/24 12:39 Mag Hydrox/Al Hydrox/Simeth 30 Ml Udc PO Q6H PRN Indigestion Aspirin 81 mg 09/17/24 08:00 09/20/24 08:20 Aspirin 81 Mg Chewable Tablet PO 81 mg DAILY@0800 ROSALINDA Administration Albumin Human 50 mls @ 999 mls/hr 09/16/24 11:49 Albutein IVPB 10/16/24 11:48 Q10M PRN HYPOTENSION Levothyroxine Sodium 100 mcg 09/17/24 09:00 09/20/24 08:20 Levothyroxine Sodium 100 Mcg Tablet PO 100 mcg DAILY ROSALINDA Administration Midodrine 5 mg 09/20/24 09:00 09/20/24 09:12 Midodrine Hcl 2.5 Mg Tablet PO 5 mg TID ROSALINDA Administration Nitroglycerin 0.4 mg 09/16/24 12:39 09/17/24 12:41 Nitroglycerin Sl 0.4 Mg Tablet SUBLINGUAL 0.4 mg Q5MIN PRN Administration Chest Pain Ondansetron HCl 4 mg 09/16/24 09:08 09/17/24 19:35 Ondansetron Inj 4 Mg/2 Ml Vial IV PUSH 4 mg Q4H PRN Administration Nausea Pantoprazole Sodium 40 mg 09/18/24 09:00 09/20/24 08:20 Pantoprazole Sodium Iv 40 Mg Vial IV PUSH 40 mg Q12HR ROSALINDA Administration Phenol 1 spray 09/19/24 13:54 Phenol/Sod Pheno [place] (*[facility]) MUCOUS MEM PRN PRN Sore Throat Polyethylene Glycol 17 gm 09/18/24 09:00 09/20/24 09:02 Polyethylene Glycol 3350 17 Gm Powd.Pack PO Not Given QAM [facility] Rosuvastatin Calcium 10 mg 09/21/24 09:00 Rosuvastatin 10 Mg Tablet PO DAILY ROSALINDA Senna/Docusate Sodium 1 tab 09/18/24 21:00 09/19/24 20:57 Senna/Docusate Sodium Tablet PO 1 tab HS ROSALINDA Administration Ticagrelor 90 mg 09/18/24 09:00 09/20/24 08:20 Ticagrelor 90 Mg Tablet PO 90 mg Q12HR ROSALINDA Administration Radiology Results: ITS Impressions Chest X-Ray 09/20/24 06:33 Impression: Mild interstitial prominence, nonspecific, similar to prior exam. Correlate for mild interstitial edema or chronic interstitial disease or COPD. Labs Labs: Laboratory Tests 09/20/24 03:53 09/20/24 03:53 Calcium 8.7 Phosphorus 3.2 Magnesium 2.1 Total Bilirubin 1.0 AST 152 H ALT 234 H Alkaline Phosphatase 68 Total Protein 5.5 L Albumin 3.0 L
--- NOTE | 2024-09-20 11:19 | P.PNGI_ITS ---
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 to monitor, no acute indication for EGD ppi daily will follow only as needed (2) Occult blood in stools: Code(s): R19.5 - Other fecal abnormalities Status: Acute Assessment and Plan: rectal exam yesterday with dark brown stool hgn stable, no changes no plan for egd unless changes (3) Shock liver: Code(s): K72.00 - Acute and subacute hepatic failure without coma Status: Acute Assessment and Plan: improved, off pressors liver enzymes trending down (4) NSTEMI (non-ST elevated myocardial infarction): Code(s): I21.4 - Non-ST elevation (NSTEMI) myocardial infarction Status: Acute Assessment and Plan: s/p stents on blood thinners per cardiology (5) Acute on chronic renal failure: Qualifiers: Acute renal failure type: unspecified Chronic kidney disease stage: unspecified stage Qualified Code(s): N17.9 - Acute kidney failure, unspecified; N18.9 - Chronic kidney disease, unspecified Code(s): N17.9 - Acute kidney failure, unspecified; N18.9 - Chronic kidney disease, unspecified Status: Acute Assessment and Plan: requiring dialysis (6) Acute uremia: Code(s): N19 - Unspecified kidney failure Status: Acute Subjective Date/time seen: 09/20/24 11:19 Interval history: doing well, no issues no gib Review of Systems Review of Systems: All systems reviewed & are unremarkable except as noted in HPI and below Exam Narrative: General: Pleasant gentleman in no acute distress HEENT:? Pupils equal and reactive, sclera is clear Neck:? Supple Respiratory:? Coarse breath sounds on the right side as compared to the left, no wheezing, adequate air entry Cardiac:? S1-S2 is normal, regular rate and rhythm Abdomen:? Soft, nontender, nondistended, normoactive bowel sound Extremities:? Trace edema, palpable pedal pulses. Neuro:? Patient is awake, alert, oriented, nonfocal, able to answer questions appropriately and follows simple commands Skin:? No lesions noted, Psych:? Normal mentation and affect Objective Data Vital Signs Vital Signs: Vital Signs - 24 hr 09/19/24 12:00 09/19/24 12:00 09/19/24 12:00 Temperature 98.0 F Pulse Rate 91 92 Respiratory Rate 13 Blood Pressure 142/64 H Pulse Oximetry 96 93 Oxygen Delivery Room Air 09/19/24 12:00 09/19/24 12:50 09/19/24 12:50 Temperature 98.3 F 98.3 F Pulse Rate 92 89 89 Respiratory Rate 16 16 Blood Pressure 142/62 H 142/64 H 142/64 H Pulse Oximetry 93 93 Oxygen Delivery 09/19/24 13:10 09/19/24 13:30 09/19/24 13:45 Temperature Pulse Rate 88 89 89 Respiratory Rate Blood Pressure 98/63 L 104/64 109/66 Pulse Oximetry Oxygen Delivery 09/19/24 14:00 09/19/24 14:00 09/19/24 14:00 Temperature 98.1 F Pulse Rate 81 81 93 Respiratory Rate 17 Blood Pressure 108/64 108/64 Pulse Oximetry 96 Oxygen Delivery 09/19/24 14:00 09/19/24 14:15 09/19/24 14:30 Temperature Pulse Rate 91 89 87 Respiratory Rate Blood Pressure 108/64 104/63 100/64 Pulse Oximetry Oxygen Delivery 09/19/24 14:45 09/19/24 15:00 09/19/24 15:15 Temperature Pulse Rate 93 89 88 Respiratory Rate Blood Pressure 111/61 101/60 114/60 Pulse Oximetry Oxygen Delivery 09/19/24 15:30 09/19/24 15:45 09/19/24 16:00 Temperature Pulse Rate 90 96 94 Respiratory Rate Blood Pressure 86/66 L 99/63 L 107/67 Pulse Oximetry Oxygen Delivery 09/19/24 16:00 09/19/24 16:00 09/19/24 16:00 Temperature 97.7 F Pulse Rate 91 94 Respiratory Rate 17 Blood Pressure 107/67 107/67 Pulse Oximetry 94 95 Oxygen Delivery Room Air 09/19/24 16:00 09/19/24 16:15 09/19/24 16:30 Temperature Pulse Rate 92 93 94 Respiratory Rate Blood Pressure 104/72 101/68 Pulse Oximetry Oxygen Delivery 09/19/24 16:41 09/19/24 16:50 09/19/24 18:00 Temperature 98.2 F 97.8 F Pulse Rate 97 91 98 Respiratory Rate 15 16 Blood Pressure 101/67 101/49 L 89/53 L Pulse Oximetry 96 100 Oxygen Delivery 09/19/24 18:00 09/19/24 18:00 09/19/24 20:00 Temperature Pulse Rate 93 93 Respiratory Rate Blood Pressure 105/56 L Pulse Oximetry 94 Oxygen Delivery Room Air 09/19/24 20:00 09/19/24 20:00 09/19/24 22:00 Temperature 97.8 F Pulse Rate 91 93 87 Respiratory Rate 15 15 Blood Pressure 121/61 107/61 Pulse Oximetry 95 94 Oxygen Delivery 09/19/24 22:43 09/20/24 00:00 09/20/24 00:00 Temperature Pulse Rate 88 Respiratory Rate Blood Pressure Pulse Oximetry 95 94 Oxygen Delivery Room Air Room Air 09/20/24 00:00 09/20/24 02:00 09/20/24 03:50 Temperature 98.1 F Pulse Rate 88 79 Respiratory Rate 17 18 Blood Pressure 103/64 99/52 L Pulse Oximetry 92 92 94 Oxygen Delivery Room Air 09/20/24 04:00 09/20/24 04:00 09/20/24 05:58 Temperature 98 F Pulse Rate 85 85 85 Respiratory Rate 18 12 Blood Pressure 95/67 L 97/65 L Pulse Oximetry 91 98 Oxygen Delivery 09/20/24 07:39 09/20/24 08:00 09/20/24 08:00 Temperature 98.2 F Pulse Rate 83 88 Respiratory Rate 12 Blood Pressure 95/70 L Pulse Oximetry 97 Oxygen Delivery Room Air 09/20/24 10:00 09/20/24 10:00 Temperature Pulse Rate 86 86 Respiratory Rate 14 Blood Pressure 102/60 Pulse Oximetry 97 Oxygen Delivery Intake/Output Intake/Output: Intake & Output 09/17/24 09/18/24 09/19/24 09/20/24 23:59 23:59 23:59 23:59 Intake Total 691.1 1825.9 1080 600 Output Total 0 1750 2000 0 Balance 691.1 75.9 -920 600 Meds/Results Medications: Active Medications Generic Name Dose Route Start Last Admin Trade Name Freq PRN Reason Stop Dose Admin Acetaminophen 650 mg 09/16/24 12:39 Acetaminophen 325 Mg Tablet PO Q4H PRN Mild Pain (1-3) Al Hydrox/Mg Hydrox/Simethicone 30 ml 09/16/24 12:39 Mag Hydrox/Al Hydrox/Simeth 30 Ml Udc PO Q6H PRN Indigestion Aspirin 81 mg 09/17/24 08:00 09/20/24 08:20 Aspirin 81 Mg Chewable Tablet PO 81 mg DAILY@0800 ROSALINDA Administration Albumin Human 50 mls @ 999 mls/hr 09/16/24 11:49 Albutein IVPB 10/16/24 11:48 Q10M PRN HYPOTENSION Levothyroxine Sodium 100 mcg 09/17/24 09:00 09/20/24 08:20 Levothyroxine Sodium 100 Mcg Tablet PO 100 mcg DAILY ROSALINDA Administration Midodrine 5 mg 09/20/24 09:00 09/20/24 09:12 Midodrine Hcl 2.5 Mg Tablet PO 5 mg TID ROSALINDA Administration Nitroglycerin 0.4 mg 09/16/24 12:39 09/17/24 12:41 Nitroglycerin Sl 0.4 Mg Tablet SUBLINGUAL 0.4 mg Q5MIN PRN Administration Chest Pain Ondansetron HCl 4 mg 09/16/24 09:08 09/17/24 19:35 Ondansetron Inj 4 Mg/2 Ml Vial IV PUSH 4 mg Q4H PRN Administration Nausea Pantoprazole Sodium 40 mg 09/18/24 09:00 09/20/24 08:20 Pantoprazole Sodium Iv 40 Mg Vial IV PUSH 40 mg Q12HR ROSALINDA Administration Phenol 1 spray 09/19/24 13:54 Phenol/Sod Pheno [place] (*Bk) MUCOUS MEM PRN PRN Sore Throat Polyethylene Glycol 17 gm 09/18/24 09:00 09/20/24 09:02 Polyethylene Glycol 3350 17 Gm Powd.Pack PO Not Given QAM [facility] Rosuvastatin Calcium 10 mg 09/21/24 09:00 Rosuvastatin 10 Mg Tablet PO DAILY ROSALINDA Senna/Docusate Sodium 1 tab 09/18/24 21:00 09/19/24 20:57 Senna/Docusate Sodium Tablet PO 1 tab HS ROSALINDA Administration Ticagrelor 90 mg 09/18/24 09:00 09/20/24 08:20 Ticagrelor 90 Mg Tablet PO 90 mg Q12HR ROSALINDA Administration Radiology Results: ITS Impressions Chest X-Ray 09/20/24 06:33 Impression: Mild interstitial prominence, nonspecific, similar to prior exam. Correlate for mild interstitial edema or chronic interstitial disease or COPD. Labs Labs: Laboratory Results - last 24 hr 09/20/24 03:53 WBC 11.3 H RBC 2.83 L Hgb 8.4 L Hct 26.3 L MCV 92.9 MCH 29.7 MCHC 31.9 L RDW 16.0 H Plt Count 195 MPV 10.9 H Immature Gran % (Auto) 1.3 H Neut % (Auto) 78.5 H Lymph % (Auto) 8.4 L Daniels % (Auto) 7.8 Eos % (Auto) 3.6 Baso % (Auto) 0.4 Lymph # (Auto) 0.95 Daniels # (Auto) 0.9 H Eos # (Auto) 0.4 H Baso # (Auto) 0.1 Abs Immat Gran (auto) 0.15 H Absolute Neuts (auto) 8.8 H Absolute Nucleated RBC 0.050 H Nucleated RBC % 0.4 H Sodium 135 L Potassium 4.0 Chloride 98 Carbon Dioxide 31 H Anion Gap 6 BUN 43 H D Creatinine 5.20 H Estim Creat Clear Calc 12 Estimated GFR 11 L Glucose 106 Calcium 8.7 Phosphorus 3.2 Magnesium 2.1 Total Bilirubin 1.0 AST 152 H ALT 234 H Alkaline Phosphatase 68 Total Protein 5.5 L Albumin 3.0 L Hep B Core Total Ab Cancelled
--- NOTE | 2024-09-20 13:52 | P.PNIM_ITS ---
Progress Note: A&P Assessment and Plan (1) NSTEMI (non-ST elevated myocardial infarction): Code(s): I21.4 - Non-ST elevation (NSTEMI) myocardial infarction Status: Acute (2) History of right common carotid artery stent placement: Code(s): Z98.890 - Other specified postprocedural states; Z95.828 - Presence of other vascular implants and grafts Status: Acute (3) Coronary artery disease: Code(s): I25.10 - Atherosclerotic heart disease of [place] coronary artery without angina pectoris Status: Acute (4) Hypertension: Code(s): I10 - Essential (primary) hypertension Status: Acute (5) Volume overload: Code(s): E87.70 - Fluid overload, unspecified Status: Acute (6) Transaminitis: Code(s): R74.01 - Elevation of levels of liver transaminase levels Status: Acute (7) Acute on chronic renal failure: Qualifiers: Acute renal failure type: unspecified Chronic kidney disease stage: unspecified stage Qualified Code(s): N17.9 - Acute kidney failure, unspecified; N18.9 - Chronic kidney disease, unspecified Code(s): N17.9 - Acute kidney failure, unspecified; N18.9 - Chronic kidney disease, unspecified Status: Acute (8) Anemia: Qualifiers: Anemia type: due to chronic kidney disease Chronic kidney disease stage: unspecified stage Qualified Code(s): N18.9 - Chronic kidney disease, unspecified; D63.1 - Anemia in chronic kidney disease Code(s): D64.9 - Anemia, unspecified Status: Acute Plan Hospital course: 73-year-old male with complex history including coronary artery disease status post 2 stents in 2024 at [facility], [place] per the patient, carotid stenosis status post right common carotid artery stent placement [facility] 2024, hypertension, hypertension, CKD, prior tobacco dependence quit smoking in 2014. 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 Reportedly the patient was diagnosed with renal failure 2 weeks prior to admission. He has also had concurrent loss of appetite, weakness and fatigue along with muscle cramps in lower extremities. He presents to [facility] on 09/16/2024 with chest pain. He describes it as sharp however sometimes tight. In the ER he received nitroglycerin which improved his pain. Denied palpitations shortness of breath or cough. Unfortunately on presentation he was in severe renal failure with hyperkalemia and a BNP of 8710 with elevated trop onin at 0.2. EKG did not demonstrate ST elevations. Nephrology consulted. Unclear etiology for the acute kidney failure however a left-sided femoral vein Yuriy catheter was placed any received dialysis on 09/16 and 09/17. Hemoglobin in 2023 10.6, 12.1 in March of 2024, on admission 9.8 dropping to 7.5 on 09/17/2024. No hemoptysis or melena/hematochezia however nursing staff noted he was exsanguinating around the insertion site of the femoral catheter. Pressure dressing was applied and repeat hemoglobin 7.9. ----- Troponin peaked at 5.05 on 09/17 at 9:00 a.m. repeat at noon coming down to 4.2. Subsequently taken to cardiac catheterization lab on 09/17/2024. Status post PCI to 99% ISR of ostial LCX (prior stent placed in 03/2024) with 3.5 mm x 18 mm [employer] bee frontier JESÚS. He is at high risk for recurrent restenoses. Cardiology recommends dual antiplatelet therapy with aspirin 81 mg p.o. daily and ticagrelor 90 mg b.i.d. for longer than 1 year with anemia and any bleeding issues into consideration. -Goal hemoglobin greater than 8. Has received 2 units PRBC. Continue to check daily more often if necessary. -cardiogenic shock during catheterization, norepinephrine started. Wean norepinephrine keeping map greater than 60. Levophed discontinued on 09/19/2024. Holding antihypertensives for now.. Start Metoprolol 12.5 mg p.o. b.i.d. when SBP greater than 110 mm Hg off Levophed -Check and replace electrolytes to keep potassium greater than 4 and magnesium greater than 2 -LFTs continue to improve, continue monitoring. Crestor has been increased to 10 mg p.o. q.day. -midodrine started on 09/20/2024 for borderline low blood pressure. Continue to monitor and consider discontinuing when appropriate. Would like to start metoprolol eventually. -report of dark brown stool on 09/19/2024. GI following. Recommend to continue to monitor. With melena/hematochezia or acute drop in hemoglobin endoscopy/colonoscopy can be considered. He is high risk. -nephrology following. anuric acute renal failure on CKD. Receiving dialysis again on 09/18/2024. Scant bibasilar crackles but no shortness of breath and he is saturating well on room air. Continue to monitor urine output if any and daily renal function. Nursing reports his left femoral Yuriy catheter is not working properly. Patient may be due for a tunneled catheter, Nephrology following. -still no urine output on 09/20/2024 ----- Stable in ICU. Transfer to intermediate care unit. SCDs only considering anemia. Heart healthy and renal dialysis diet. Continue daily labs including CMP CBC magnesium phosphorus. Goal hemoglobin greater than 8. Holding antihypertensives. Protonix 40 mg IV b.i.d.. Continue aspirin and ticagrelor. Patient wishes to be full code. Subjective Date/time seen: 09/20/24 13:52 Interval history: No major acute overnight events. Spouse at bedside. Patient has no complaints other than being tired. No bowel movement since dark stool on 09/19/2024. No overt bleeding. Review of Systems Review of Systems: All systems reviewed & are unremarkable except as noted in HPI and below (Subjective) Exam Const: General: comfortable and no acute distress Eyes: Pupils: Equal, round and reactive pupils present Neck: Neck: supple Resp: Effort & Inspection: normal respiratory effort Other: Scant crackles bibasilar Cardio: Rate: regular rate Rhythm: regular rhythm Heart sounds: no gallops, no murmurs and no rubs GI: Inspection: non-distended GI Palp: Yes Soft to palpation Neuro: Motor exam (neuro): 5/5 motor strength present throughout Extrem: General: no edema Objective Data Vital Signs Vital Signs: Vital Signs - 24 hr 09/19/24 14:00 09/19/24 14:00 09/19/24 14:00 Temperature 98.1 F Pulse Rate 81 81 93 Respiratory Rate 17 Blood Pressure 108/64 108/64 Pulse Oximetry 96 Oxygen Delivery 09/19/24 14:00 09/19/24 14:15 09/19/24 14:30 Temperature Pulse Rate 91 89 87 Respiratory Rate Blood Pressure 108/64 104/63 100/64 Pulse Oximetry Oxygen Delivery 09/19/24 14:45 09/19/24 15:00 09/19/24 15:15 Temperature Pulse Rate 93 89 88 Respiratory Rate Blood Pressure 111/61 101/60 114/60 Pulse Oximetry Oxygen Delivery 09/19/24 15:30 09/19/24 15:45 09/19/24 16:00 Temperature Pulse Rate 90 96 94 Respiratory Rate Blood Pressure 86/66 L 99/63 L 107/67 Pulse Oximetry Oxygen Delivery 09/19/24 16:00 09/19/24 16:00 09/19/24 16:00 Temperature 97.7 F Pulse Rate 91 94 Respiratory Rate 17 Blood Pressure 107/67 107/67 Pulse Oximetry 94 95 Oxygen Delivery Room Air 09/19/24 16:00 09/19/24 16:15 09/19/24 16:30 Temperature Pulse Rate 92 93 94 Respiratory Rate Blood Pressure 104/72 101/68 Pulse Oximetry Oxygen Delivery 09/19/24 16:41 09/19/24 16:50 09/19/24 18:00 Temperature 98.2 F 97.8 F Pulse Rate 97 91 98 Respiratory Rate 15 16 Blood Pressure 101/67 101/49 L 89/53 L Pulse Oximetry 96 100 Oxygen Delivery 09/19/24 18:00 09/19/24 18:00 09/19/24 20:00 Temperature Pulse Rate 93 93 Respiratory Rate Blood Pressure 105/56 L Pulse Oximetry 94 Oxygen Delivery Room Air 09/19/24 20:00 09/19/24 20:00 09/19/24 22:00 Temperature 97.8 F Pulse Rate 91 93 87 Respiratory Rate 15 15 Blood Pressure 121/61 107/61 Pulse Oximetry 95 94 Oxygen Delivery 09/19/24 22:43 09/20/24 00:00 09/20/24 00:00 Temperature Pulse Rate 88 Respiratory Rate Blood Pressure Pulse Oximetry 95 94 Oxygen Delivery Room Air Room Air 09/20/24 00:00 09/20/24 02:00 09/20/24 03:50 Temperature 98.1 F Pulse Rate 88 79 Respiratory Rate 17 18 Blood Pressure 103/64 99/52 L Pulse Oximetry 92 92 94 Oxygen Delivery Room Air 09/20/24 04:00 09/20/24 04:00 09/20/24 05:58 Temperature 98 F Pulse Rate 85 85 85 Respiratory Rate 18 12 Blood Pressure 95/67 L 97/65 L Pulse Oximetry 91 98 Oxygen Delivery 09/20/24 07:39 09/20/24 08:00 09/20/24 08:00 Temperature 98.2 F Pulse Rate 83 88 Respiratory Rate 12 Blood Pressure 95/70 L Pulse Oximetry 97 Oxygen Delivery Room Air 09/20/24 10:00 09/20/24 10:00 09/20/24 12:00 Temperature Pulse Rate 86 86 Respiratory Rate 14 Blood Pressure 102/60 Pulse Oximetry 97 Oxygen Delivery Room Air 09/20/24 12:00 09/20/24 12:00 Temperature 98.0 F Pulse Rate 82 74 Respiratory Rate 21 H Blood Pressure 92/50 L Pulse Oximetry 98 Oxygen Delivery Intake/Output Intake/Output: Intake & Output 09/17/24 09/18/24 09/19/24 09/20/24 23:59 23:59 23:59 23:59 Intake Total 691.1 1825.9 1080 840 Output Total 0 1750 2000 0 Balance 691.1 75.9 -920 840 Meds/Results Medications: Active Medications Generic Name Dose Route Start Last Admin Trade Name Megan PRN Reason Stop Dose Admin Acetaminophen 650 mg 09/16/24 12:39 Acetaminophen 325 Mg Tablet PO Q4H PRN Mild Pain (1-3) Al Hydrox/Mg Hydrox/Simethicone 30 ml 09/16/24 12:39 Mag Hydrox/Al Hydrox/Simeth 30 Ml Udc PO Q6H PRN Indigestion Aspirin 81 mg 09/17/24 08:00 09/20/24 08:20 Aspirin 81 Mg Chewable Tablet PO 81 mg DAILY@0800 ROSALINDA Administration Albumin Human 50 mls @ 999 mls/hr 09/16/24 11:49 Albutein IVPB 10/16/24 11:48 Q10M PRN HYPOTENSION Levothyroxine Sodium 100 mcg 09/17/24 09:00 09/20/24 08:20 Levothyroxine Sodium 100 Mcg Tablet PO 100 mcg DAILY ROSALINDA Administration Midodrine 5 mg 09/20/24 09:00 09/20/24 13:12 Midodrine Hcl 2.5 Mg Tablet PO 5 mg TID ROSALINDA Administration Nitroglycerin 0.4 mg 09/16/24 12:39 09/17/24 12:41 Nitroglycerin Sl 0.4 Mg Tablet SUBLINGUAL 0.4 mg Q5MIN PRN Administration Chest Pain Ondansetron HCl 4 mg 09/16/24 09:08 09/17/24 19:35 Ondansetron Inj 4 Mg/2 Ml Vial IV PUSH 4 mg Q4H PRN Administration Nausea Pantoprazole Sodium 40 mg 09/18/24 09:00 09/20/24 08:20 Pantoprazole Sodium Iv 40 Mg Vial IV PUSH 40 mg Q12HR ROSALINDA Administration Phenol 1 spray 09/19/24 13:54 Phenol/Sod Pheno [place] (*Bkc) MUCOUS MEM PRN PRN Sore Throat Polyethylene Glycol 17 gm 09/18/24 09:00 09/20/24 09:02 Polyethylene Glycol 3350 17 Gm Powd.Pack PO Not Given QAM ROSALINDA Rosuvastatin Calcium 10 mg 09/21/24 09:00 Rosuvastatin 10 Mg Tablet PO DAILY ROSALINDA Senna/Docusate Sodium 1 tab 09/18/24 21:00 09/19/24 20:57 Senna/Docusate Sodium Tablet PO 1 tab HS ROSALINDA Administration Ticagrelor 90 mg 09/18/24 09:00 09/20/24 08:20 Ticagrelor 90 Mg Tablet PO 90 mg Q12HR ROSALINDA Administration Radiology Results: ITS Impressions Chest X-Ray 09/20/24 06:33 Impression: Mild interstitial prominence, nonspecific, similar to prior exam. Correlate for mild interstitial edema or chronic interstitial disease or COPD. Labs Labs: Laboratory Results - last 24 hr 09/20/24 03:53 WBC 11.3 H RBC 2.83 L Hgb 8.4 L Hct 26.3 L MCV 92.9 MCH 29.7 MCHC 31.9 L RDW 16.0 H Plt Count 195 MPV 10.9 H Immature Gran % (Auto) 1.3 H Neut % (Auto) 78.5 H Lymph % (Auto) 8.4 L [place] % (Auto) 7.8 Eos % (Auto) 3.6 Baso % (Auto) 0.4 Lymph # (Auto) 0.95 [place] # (Auto) 0.9 H Eos # (Auto) 0.4 H Baso # (Auto) 0.1 Abs Immat Gran (auto) 0.15 H Absolute Neuts (auto) 8.8 H Absolute Nucleated RBC 0.050 H Nucleated RBC % 0.4 H Sodium 135 L Potassium 4.0 Chloride 98 Carbon Dioxide 31 H Anion Gap 6 BUN 43 H D Creatinine 5.20 H Estim Creat Clear Calc 12 Estimated GFR 11 L Glucose 106 Calcium 8.7 Phosphorus 3.2 Magnesium 2.1 Total Bilirubin 1.0 AST 152 H ALT 234 H Alkaline Phosphatase 68 Total Protein 5.5 L Albumin 3.0 L Hep B Core Total Ab Cancelled
[2024-09-20] MEDS: SENNA/DOCUSATE SODIUM TABLET 1 TAB PO (21:08)
[2024-09-21] VITALS (12 sets, daily range): BP systolic 110–118; BP diastolic 58–70; PULSE 63–86; RESP 13–18; TEMP 36.4–36.9; O2SAT 94–98
[2024-09-21 04:18] LABS: Hematocrit 23.5 % (42.0-52.0); Hemoglobin 7.6 g/dL (14.0-18.0); Immature Granulocyte Percent A 0.9 % (0-0.5); Lymphocytes Absolute Auto 0.97 K/mm3 (0.9-3.2); Mean Corpuscular HGB Conc 32.3 g/dl (32-36); Mean Corpuscular Hemoglobin 30.2 pg (26-34); Mean Corpuscular Volume 93.3 fl (80-100); Nucleated Red Blood Cells Absolute Auto 0.020 K/mm3 (0.0-0.012); Nucleated Red Blood Cells Perc 0.2 % (0.0-0.2); Platelet Count Result 199 k/mm3 (150-375); Red Blood Count 2.52 M/mm3 (4.6-6.20); White Blood Count 12.1 K/mm3 (4.5-10.0)
[2024-09-21 04:29] LABS: INR 1.1; Partial Thromboplastin Time 29.1 Seconds (22.3-36.8); Prothrombin Time 14.2 Seconds (11.1-14.7)
[2024-09-21 04:46] LABS: Alanine Aminotransferase 188 U/L (6-50); Albumin Level 2.7 g/dL (3.5-5.1); Alkaline Phosphatase 58 U/L (38-126); Anion Gap 8 mmol/L (4-12); Aspartate Amino Transferase 109 U/L (17-59); Bilirubin,Total 1.0 mg/dL (0.2-1.3); Blood Urea Nitrogen 57 mg/dL (9-20); Calcium 8.6 mg/dL (8.4-10.2); Carbon Dioxide 27 mmol/L (22-30); Chloride 99 mmol/L (98-107); Estimated CRCL calculation 8 ml/min; Estimated Glomerular Filt Rate 7; Glucose 101 mg/dL (65-110); Magnesium 2.1 mg/dL (1.6-2.3); Potassium 4.1 mmol/L (3.4-5.0); Sodium 134 mmol/L (137-145); Total Protein 5.3 g/dL (6.3-8.2)
--- NOTE | 2024-09-21 08:59 | PC.NURSE ---
Confirmed with OR charge Yara that placement of permanent hemodialysis cath will be tomorrow 09/22 @ 1230 as of now. Otherwise procedure would've been later this evening with call crew. Informed Dr. Hughes who verified with Dr. Daly that this is okay as patient's right femoral jaci was removed on tuesday 09/19 after last HD treatment. Addy aware and to be NPO at midnight, advance diet today to previously ordered.
[2024-09-21] MEDS: LEVOTHYROXINE SODIUM 100 MCG TABLET PO (09:06)
[2024-09-21] MEDS: ASPIRIN 81 MG CHEWABLE TABLET PO (09:06)
[2024-09-21] MEDS: MIDODRINE HCL 2.5 MG TABLET 5 MG PO ×2 (09:06→12:06)
[2024-09-21] MEDS: PANTOPRAZOLE SODIUM IV 40 MG VIAL IV PUSH ×2 (09:06→20:27)
[2024-09-21] MEDS: TICAGRELOR 90 MG TABLET PO ×2 (09:06→20:27)
[2024-09-21] MEDS: ROSUVASTATIN 10 MG TABLET PO (09:06)
--- NOTE | 2024-09-21 09:59 | P.PNIM_ITS ---
Progress Note: A&P Assessment and Plan (1) NSTEMI (non-ST elevated myocardial infarction): Code(s): I21.4 - Non-ST elevation (NSTEMI) myocardial infarction Status: Acute Assessment and Plan: 09/16: Patient presented with generalized weakness, chest pain. Was found to be in acute on chronic renal failure with creatinine of 20 and BUN of 161. -troponins peaked at 5.05 -09/17: status post PTCA/PCI with JESÚS x1 to left circumflex which had a 99% in stent restenoses of the ostial circumflex -continue aspirin, ticagrelor, rosuvastatin -patient did have cardiogenic shock on the cardiac cath table requiring Kyrie- Synephrine, started on Levophed which is being weaned, maintain MAP 60-65 mmHg per Cardiology -off Levophed since the evening of 09/18 -09/18: hemoglobin 7.3 this morning, cardiology requested 1 unit of packed RBCs to to keep hemoglobin > 8.0 -cardiology following the patient 09/17/2024: Echocardiogram: Summary 1. Complete two-dimensional, color flow and Doppler transthoracic echocardiogram is performed. 2. This was a technically difficult study with poorly visualized acoustic windows and limited views. 3. There is normal biventricular size and systolic function. EF 60-65%, normal RV systolic function. 4. There is at least mild aortic stenosis. Due to limited windows and poorly visualized acoustic views, unable to quantify the degree of aortic stenosis in this study. (2) Acute on chronic renal failure: Qualifiers: Acute renal failure type: unspecified Chronic kidney disease stage: unspecified stage Qualified Code(s): N17.9 - Acute kidney failure, unspecified; N18.9 - Chronic kidney disease, unspecified Code(s): N17.9 - Acute kidney failure, unspecified; N18.9 - Chronic kidney disease, unspecified Status: Acute Assessment and Plan: Patient presented with generalized weakness, decreased appetite and p.o. intake. He did continue to take his blood pressure medications -creatinine was 20.08, BUN was 164 potassium was 6.0 on admission -could be related to low flow state due to hypotension, coronary artery disease, decreased p.o. intake, low flow state -09/16: Dialysis catheter was placed by surgery more right femoral vein -09/16: Nephrology was consulted and started on dialysis -09/17, 09/18: Dialyzed -patient is anuric, BUN creatinine trending down, -patient to get dialyzed again today after discussing with Nephrology -09/19: Temporary dialysis catheter was removed after discussion with Nephrology -09/19: Nephrology has consulted surgery to place tunneled dialysis catheter -09/20: midodrine 5 mg t.i.d. due to borderline blood pressure -tunneled dialysis catheter been placed on 09/22 by surgery (3) Anemia: Qualifiers: Anemia type: due to chronic kidney disease Chronic kidney disease stage: unspecified stage Qualified Code(s): N18.9 - Chronic kidney disease, unspecified; D63.1 - Anemia in chronic kidney disease Code(s): D64.9 - Anemia, unspecified Status: Acute Assessment and Plan: Patient anemic on admission, hemoglobin was 9.0 (hemoglobin in March was 12.1) -09/17: Transfused 1 unit of packed RBCs -09/18: Hemoglobin 7.3 this morning, cardiology requested 1 unit of packed RBCs to maintain Hb > 8.0 since he has coronary artery disease. Transfused 1 unit of packed RBCs -patient denies any regular NSAID use -denies any dark stools or coffee-ground emesis, hematemesis, hematochezia -history of removal of colonic polyp on 05/10/2022 you on a colonoscopy done here at [facility] -no iron deficiency on iron panel -vitamin B12 and folate were normal -stool for occult blood was positive -appreciate GI evaluation and recommendation -Protonix IV q.12 hours -09/19: Patient did have melanotic stool. -hemoglobin remained stable, discuss with GI, will continue to monitor (4) Coronary artery disease: Code(s): I25.10 - Atherosclerotic heart disease of [place] coronary artery without angina pectoris Status: Acute Assessment and Plan: Patient has a history of coronary artery disease and stent x2 in March 2024 at [facility] (5) Hypertension: Code(s): I10 - Essential (primary) hypertension Status: Acute Assessment and Plan: History of essential hypertension, will hold antihypertensives. Recent vasopressor use, -blood pressure is currently stable -midodrine added (6) Transaminitis: Code(s): R74.01 - Elevation of levels of liver transaminase levels Status: Acute Assessment and Plan: Elevated LFTs likely related to coronary artery disease, renal function, hypotension, low-flow state -LFTs improving with better blood pressures and adequate perfusion -continue to monitor (7) Electrolyte imbalance: Code(s): E87.8 - Other disorders of electrolyte and fluid balance, not elsewhere classified Status: Acute Assessment and Plan: Hyperkalemia on admission has resolved with dialysis, continue to monitor Plan DVT prophylaxis: SCDs for now since patient is anemia Stress ulcer prophylaxis: Protonix IV q.12 hours Nutrition: Renal and heart healthy diet Code Status: Full code Patient will be transferred to [facility] Discussed with patient and his at bedside, updated with patient's condition and plan of care. I answered all question Due to a high probability of clinically significant, life threatening deterioration, the patient required my highest level of preparedness to intervene emergently and I personally spent this critical care time directly and personally managing the patient. This critical care time included obtaining a history; examining the patient; pulse oximetry; ordering and review of studies; arranging urgent treatment with development of a management plan; evaluation of patient's response to treatment; frequent reassessment; and discussions with other providers. It was exclusive of separately billable procedures and treating other patients and teaching time. Please see Assessment and Plan section and the rest of the note for further information on patient assessment and treatment This dictation may have been done utilizing a voice recognition system. Attempts have been made to correct errors. However, there may be uncorrected grammatical, spelling, and recognitions errors present. Subjective Date/time seen: 09/21/24 09:59 Interval history: Reason for consult: acute kidney injury, NSTEMI status post PTCA/PCI with JESÚS x1 to left circumflex which had a 99% in stent restenoses of the ostial circumflex 09/16: Temporary Dialysis catheter was placed and started on dialysis 09/17 & 09/18: Received 1 unit of packed RBCs on each day 09/20: Temporary dialysis catheter removed 09/21/2024: Patient seen and examined the ICU. Hemodynamically stable, afebrile. Afebrile, anuric. Patient is awake, alert, orientedx3. Denies any chest pain, shortness of breath, nausea, vomiting, diarrhea. Complains of not being able to sleep too well because of the light from the outside her room bothers him. Review of Systems Review of Systems: All systems reviewed & are unremarkable except as noted in HPI and below Exam Narrative: General: Pleasant gentleman in no acute distress HEENT:? Pupils equal and reactive, sclera is clear Neck:? Supple Respiratory:? Coarse breath sounds on the right side as compared to the left, no wheezing, adequate air entry Cardiac:? S1-S2 is normal, regular rate and rhythm Abdomen:? Soft, nontender, nondistended, normoactive bowel sound Extremities:? Trace edema, palpable pedal pulses. Right radial artery palpable, no evidence of hematoma or ecchymoses on the right wrist at the site of catheterization Neuro:? Patient is awake, alert, oriented, nonfocal, able to answer questions appropriately and follows simple commands Skin:? No lesions noted, Psych:? Normal mentation and affect Objective Data Vital Signs Vital Signs: Vital Signs - 24 hr 09/20/24 10:00 09/20/24 10:00 09/20/24 12:00 Temperature Pulse Rate 86 86 Respiratory Rate 14 Blood Pressure 102/60 Pulse Oximetry 97 Oxygen Delivery Room Air 09/20/24 12:00 09/20/24 12:00 09/20/24 14:00 Temperature 98.0 F Pulse Rate 82 74 84 Respiratory Rate 21 H Blood Pressure 92/50 L Pulse Oximetry 98 Oxygen Delivery 09/20/24 16:00 09/20/24 16:00 09/20/24 16:00 Temperature 98.5 F Pulse Rate 82 86 Respiratory Rate 13 Blood Pressure 112/63 Pulse Oximetry 95 Oxygen Delivery Room Air 09/20/24 18:00 09/20/24 20:00 09/20/24 20:00 Temperature Pulse Rate 77 82 Respiratory Rate Blood Pressure Pulse Oximetry Oxygen Delivery Room Air 09/20/24 20:00 09/20/24 22:00 09/21/24 00:00 Temperature 97.8 F Pulse Rate 79 70 Respiratory Rate 14 Blood Pressure 118/63 Pulse Oximetry 96 Oxygen Delivery Room Air 09/21/24 00:00 09/21/24 00:00 09/21/24 02:00 Temperature 98.4 F Pulse Rate 65 70 67 Respiratory Rate 16 Blood Pressure 118/58 L Pulse Oximetry 96 Oxygen Delivery 09/21/24 04:00 09/21/24 04:00 09/21/24 04:00 Temperature 98.1 F Pulse Rate 79 70 Respiratory Rate 16 Blood Pressure 118/58 L Pulse Oximetry 96 Oxygen Delivery Room Air 09/21/24 06:00 09/21/24 07:23 09/21/24 08:00 Temperature 97.6 F Pulse Rate 69 81 68 Respiratory Rate 14 13 Blood Pressure 110/70 Pulse Oximetry 96 98 Oxygen Delivery Room Air 09/21/24 08:00 Temperature Pulse Rate 68 Respiratory Rate Blood Pressure Pulse Oximetry Oxygen Delivery Intake/Output Intake/Output: Intake & Output 09/18/24 09/19/24 09/20/24 09/21/24 23:59 23:59 23:59 23:59 Intake Total 1825.9 1080 1080 120 Output Total 1750 2000 0 Balance 75.9 -920 1080 120 Meds/Results Medications: Active Medications Generic Name Dose Route Start Last Admin Trade Name Freq PRN Reason Stop Dose Admin Acetaminophen 650 mg 09/16/24 12:39 Acetaminophen 325 Mg Tablet PO Q4H PRN Mild Pain (1-3) Al Hydrox/Mg Hydrox/Simethicone 30 ml 09/16/24 12:39 Mag Hydrox/Al Hydrox/Simeth 30 Ml Udc PO Q6H PRN Indigestion Aspirin 81 mg 09/17/24 08:00 09/21/24 09:06 Aspirin 81 Mg Chewable Tablet PO 81 mg DAILY@0800 ROSALINDA Administration Albumin Human 50 mls @ 999 mls/hr 09/16/24 11:49 Albutein IVPB 10/16/24 11:48 Q10M PRN HYPOTENSION Levothyroxine Sodium 100 mcg 09/17/24 09:00 09/21/24 09:06 Levothyroxine Sodium 100 Mcg Tablet PO 100 mcg DAILY ROSALINDA Administration Midodrine 5 mg 09/20/24 09:00 09/21/24 09:06 Midodrine Hcl 2.5 Mg Tablet PO 5 mg TID ROSALINDA Administration Nitroglycerin 0.4 mg 09/16/24 12:39 09/17/24 12:41 Nitroglycerin Sl 0.4 Mg Tablet SUBLINGUAL 0.4 mg Q5MIN PRN Administration Chest Pain Ondansetron HCl 4 mg 09/16/24 09:08 09/17/24 19:35 Ondansetron Inj 4 Mg/2 Ml Vial IV PUSH 4 mg Q4H PRN Administration Nausea Pantoprazole Sodium 40 mg 09/18/24 09:00 09/21/24 09:06 Pantoprazole Sodium Iv 40 Mg Vial IV PUSH 40 mg Q12HR ROSALINDA Administration Phenol 1 spray 09/19/24 13:54 Phenol/Sod Pheno [place] (*[facility]) MUCOUS MEM PRN PRN Sore Throat Polyethylene Glycol 17 gm 09/18/24 09:00 09/21/24 09:05 Polyethylene Glycol 3350 17 Gm Powd.Pack PO 17 gm QAM ROSALINDA Administration Rosuvastatin Calcium 10 mg 09/21/24 09:00 09/21/24 09:06 Rosuvastatin 10 Mg Tablet PO 10 mg DAILY ROSALINDA Administration Senna/Docusate Sodium 1 tab 09/18/24 21:00 09/20/24 21:08 Senna/Docusate Sodium Tablet PO 1 tab HS ROSALINDA Administration Ticagrelor 90 mg 09/18/24 09:00 09/21/24 09:06 Ticagrelor 90 Mg Tablet PO 90 mg Q12HR ROSALINDA Administration Radiology Results: ITS Impressions Chest X-Ray 09/20/24 06:33 Impression: Mild interstitial prominence, nonspecific, similar to prior exam. Correlate for mild interstitial edema or chronic interstitial disease or COPD. Labs Labs: Laboratory Results - last 24 hr 09/20/24 09/21/24 03:53 04:14 WBC 12.1 H RBC 2.52 L Hgb 7.6 L Hct 23.5 L MCV 93.3 MCH 30.2 MCHC 32.3 RDW 16.4 H Plt Count 199 MPV 10.4 Immature Gran % (Auto) 0.9 H Neut % (Auto) 76.4 H Lymph % (Auto) 8.0 L [place] % (Auto) 7.8 Eos % (Auto) 6.5 H Baso % (Auto) 0.4 Lymph # (Auto) 0.97 [place] # (Auto) 1.0 H Eos # (Auto) 0.8 H Baso # (Auto) 0.1 Abs Immat Gran (auto) 0.11 H Absolute Neuts (auto) 9.2 H Absolute Nucleated RBC 0.020 H Nucleated RBC % 0.2 PT 14.2 INR 1.1 APTT 29.1 Sodium 134 L Potassium 4.1 Chloride 99 Carbon Dioxide 27 Anion Gap 8 BUN 57 H D Creatinine 7.21 H Estim Creat Clear Calc 8 Estimated GFR 7 L Glucose 101 Calcium 8.6 Phosphorus 3.9 Magnesium 2.1 Total Bilirubin 1.0 AST 109 H ALT 188 H Alkaline Phosphatase 58 Total Protein 5.3 L Albumin 2.7 L Hep B Core Total Ab Cancelled Quality VTE Prophylaxis VTE prophylaxis: mechanical ordered
--- NOTE | 2024-09-21 10:01 | P.PNNP_ITS ---
Progress Note: A&P Assessment and Plan (1) Acute kidney injury: Code(s): N17.9 - Acute kidney failure, unspecified Status: Acute Assessment and Plan: * etiology not clear * significant decline in renal function/creatinine noted by labs on admission * suspect/possibly due to hypotension +/- cardiac event/NSTEMI * evaluation to date noted: * renal ultrasound in July 2024 was normal * unable to check urine studies since anuric * due to hyperkalemia, severe acidosis, and possible uremia, initiated on dialysis (09/16) * s/p temporary femoral line by Surgery * HD on 09/16, 09/17, 09/18, and 09/19 * likely next HD session tomorrow * plan tunneled HD catheter tomorrow (09/22) * follow trend of electrolytes, acidosis, and clearance * follow trend of repeat labs and UOP to assess for potential recovery * will need outpatient dialysis on discharge (2) Chronic kidney disease: Code(s): N18.9 - Chronic kidney disease, unspecified Status: Chronic Assessment and Plan: * specifics are not clear... * according to patient, last testing ~ 1 month ago noted his kidney function at 40% * last creatinine here in March 2024 was 1.28mg/dl * attempting to obtain records from primary lace mender (Dr. Robert Shultz) regarding baseline kidney function and what evaluation has been done * records still not available for review (3) NSTEMI (non-ST elevated myocardial infarction): Code(s): I21.4 - Non-ST elevation (NSTEMI) myocardial infarction Status: Acute Assessment and Plan: * elevated troponins and admission EKG noted * s/p heparin gtt * Cardiology following * s/p cardiac catheterization (09/17) with findings/interventions noted: * left main coronary artery is widely patent without any significant obstructive disease; prior stent in left main from 03/2024 is widely patent * LAD and the diagonal branches have mild luminal irregularities without any significant obstructive angiographic disease; prior stent in the proximal LAD from 03/2024 is widely patent * left circuflex with 99% instent restenoses (stent was placed in 03/2024) of ostial LCX; there is 60% calcified stenosis in mid LCX; distal LCX is very tiny and diffusely diseased; OM branches have minor luminal irregularities; following initial diagnostic image of the left system the flow in LCX decreased from RHODA 3 to RHODA 1 due to significant ostial LCX stenosis * proximal RCA has 30% stenosis; Right dominant circulation; distal RCA, RPDA, and RPLA appear diffusely thready without any focal stenosis due to spasm * status post successful IVUS guided PCI to 99% InStent restenoses of ostial LCX (culprit for patient's presentation) with 3.5 mm X 18 mm [employer] bee [place] JESÚS followed by post-dilation with a 3.5 mm X 15 mm NC balloon, KBI with 3.5 mm X 15 mm NC balloon in LCX and 3.5 mm X 15 mm NC balloon in LAD, and final POT with 4.0 mm X 15 mm NC balloon balloon * on ASA and ticagrelor * on statin * start BB when BP allows * continue medical management (4) Hyperkalemia: Code(s): E87.5 - Hyperkalemia Status: Acute Assessment and Plan: * resolved with [employer]ENDENT [employer]OP CONSULTANT/dialysis * noted on admission * resistant to medical therapy with ER interventions * follow trend of K+ (5) Metabolic acidosis: Code(s): E87.20 - Acidosis, unspecified Status: Acute Assessment and Plan: * improvement/corrected with dialysis * presumably due to severity of ANNA MARIE * lactic acid normal (6) Anemia: Qualifiers: Anemia type: due to chronic kidney disease Chronic kidney disease stage: unspecified stage Qualified Code(s): N18.9 - Chronic kidney disease, unspecified; D63.1 - Anemia in chronic kidney disease Code(s): D64.9 - Anemia, unspecified Status: Acute Assessment and Plan: * presumably related to ANNA MARIE +/- CKD and acute illness * PRBC transfusion per protocol * 2 units since admission * Epogen with HD * anemia studies with adequate iron stores; b12 and folate acceptable * seen by GI with recommendations noted * no plans for EGD at this time * follow trend of H/H (7) Hypertension: Code(s): I10 - Essential (primary) hypertension Status: Chronic Assessment and Plan: * soft since admission * was on low dose levophed gtt post cardiac catheterization * wean off 09/19 * holding midodrine * follow trend of hemodynamics (8) Transaminitis: Code(s): R74.01 - Elevation of levels of liver transaminase levels Status: Acute Assessment and Plan: * as noted by admission labs * presumably due cardiac event and subsequent hypoperfusion (?) * slow improvement noted * follow trend Will continue to follow. L Subjective Date/time seen: 09/21/24 10:01 Interval history: Follow-up for acute kidney injury/acute renal failure on chronic kidney disease (requiring [employer]OP CONSULTANT/hemodialysis). No apparent distress noted at the time of my visit; stable hemodynamics without the need for vasopressor therapy; remains anuric since admission; no other acute complaints voiced; no issues/events overnight or earlier this morning. Exam 2 Narrative: General: elderly but WD/WN male in NAD Heart: normal S1 and S2; no rub Lungs: clear to auscultation Abdomen: soft, nontender, nondistended, positive bowel sounds Extremities: no cyanosis or clubbing; no edema Skin: warm and dry Objective Data Vital Signs Vital Signs: Vital Signs Temp Pulse Resp BP Pulse Ox O2 Del Method 09/21/24 10:00 80 09/21/24 08:00 68 09/21/24 08:00 68 13 98 Room Air 09/21/24 07:23 97.6 F 81 14 110/70 96 09/21/24 06:00 69 09/21/24 04:00 98.1 F 70 16 118/58 L 96 09/21/24 04:00 79 09/21/24 04:00 Room Air 09/21/24 02:00 67 09/21/24 00:00 98.4 F 70 16 118/58 L 96 09/21/24 00:00 65 09/21/24 00:00 Room Air 09/20/24 22:00 70 09/20/24 20:00 97.8 F 79 14 118/63 96 09/20/24 20:00 82 09/20/24 20:00 Room Air Intake/Output Intake/Output: Intake & Output 09/18/24 09/19/24 09/20/24 09/21/24 23:59 23:59 23:59 23:59 Intake Total 1825.9 1080 1080 460 Output Total 1750 2000 0 25 Balance 75.9 -920 1080 435 Meds/Results Medications: Active Medications Generic Name Dose Route Start Last Admin Trade Name Freq PRN Reason Stop Dose Admin Acetaminophen 650 mg 09/16/24 12:39 Acetaminophen 325 Mg Tablet PO Q4H PRN Mild Pain (1-3) Al Hydrox/Mg Hydrox/Simethicone 30 ml 09/16/24 12:39 Mag Hydrox/Al Hydrox/Simeth 30 Ml Udc PO Q6H PRN Indigestion Aspirin 81 mg 09/17/24 08:00 09/21/24 09:06 Aspirin 81 Mg Chewable Tablet PO 81 mg DAILY@0800 ROSALINDA Administration Albumin Human 50 mls @ 999 mls/hr 09/16/24 11:49 Albutein IVPB 10/16/24 11:48 Q10M PRN HYPOTENSION Levothyroxine Sodium 100 mcg 09/17/24 09:00 09/21/24 09:06 Levothyroxine Sodium 100 Mcg Tablet PO 100 mcg DAILY ROSALINDA Administration Midodrine 5 mg 09/20/24 09:00 09/21/24 18:07 Midodrine Hcl 2.5 Mg Tablet PO Not Given TID ROSALINDA Nitroglycerin 0.4 mg 09/16/24 12:39 09/17/24 12:41 Nitroglycerin Sl 0.4 Mg Tablet SUBLINGUAL 0.4 mg Q5MIN PRN Administration Chest Pain Ondansetron HCl 4 mg 09/16/24 09:08 09/21/24 16:45 Ondansetron Inj 4 Mg/2 Ml Vial IV PUSH 4 mg Q4H PRN Administration Nausea Pantoprazole Sodium 40 mg 09/18/24 09:00 09/21/24 09:06 Pantoprazole Sodium Iv 40 Mg Vial IV PUSH 40 mg Q12HR ROSALINDA Administration Phenol 1 spray 09/19/24 13:54 Phenol/Sod Pheno [place] (*[facility]) MUCOUS MEM PRN PRN Sore Throat Polyethylene Glycol 17 gm 09/18/24 09:00 09/21/24 09:05 Polyethylene Glycol 3350 17 Gm Powd.Pack PO 17 gm QAM ROSALINDA Administration Rosuvastatin Calcium 10 mg 09/21/24 09:00 09/21/24 09:06 Rosuvastatin 10 Mg Tablet PO 10 mg DAILY ROSALINDA Administration Senna/Docusate Sodium 1 tab 09/18/24 21:00 09/20/24 21:08 Senna/Docusate Sodium Tablet PO 1 tab HS ROSALINDA Administration Ticagrelor 90 mg 09/18/24 09:00 09/21/24 09:06 Ticagrelor 90 Mg Tablet PO 90 mg Q12HR ROSALINDA Administration Radiology Results: ITS Impressions Chest X-Ray 09/20/24 06:33 Impression: Mild interstitial prominence, nonspecific, similar to prior exam. Correlate for mild interstitial edema or chronic interstitial disease or COPD. Labs Labs: Laboratory Tests 09/21/24 04:14 09/21/24 04:14 Calcium 8.6 Phosphorus 3.9 Magnesium 2.1 Total Bilirubin 1.0 AST 109 H ALT 188 H Alkaline Phosphatase 58 Total Protein 5.3 L Albumin 2.7 L
--- NOTE | 2024-09-21 10:44 | P.PNGS_ITS ---
Progress Note: A&P Assessment and Plan (1) NSTEMI (non-ST elevated myocardial infarction): Code(s): I21.4 - Non-ST elevation (NSTEMI) myocardial infarction Status: Acute Assessment and Plan: Status post percutaneous intervention and placement cardiac stent by Interventional Cardiology. Patient is now on dual antiplatelet therapy. Brilinta given today. (2) Acute on chronic renal failure: Qualifiers: Acute renal failure type: unspecified Chronic kidney disease stage: unspecified stage Qualified Code(s): N17.9 - Acute kidney failure, unspecified; N18.9 - Chronic kidney disease, unspecified Code(s): N17.9 - Acute kidney failure, unspecified; N18.9 - Chronic kidney disease, unspecified Status: Acute Assessment and Plan: Temporary non tunneled left femoral hemodialysis catheter removed on 09/19. Nephrology consulted for tunneled hemodialysis catheter. Scheduled for tomorrow at 12:[address] Bravo. Brxavierta to be held tomorrow. Plan Discussed patient's case and plan of care with Dr. Bravo. Subjective Subjective Date/Time Seen: 09/21/24 10:44 Patient reports: no new complaints Interval history: Patient doing well today. Family at bedside. Ate breakfast this morning. Reportedly, stretcher helper team considering stepdown to medical floor. Temporary dialysis catheter removed on 09/19. Surgery reconsulted for placement of tunneled dialysis catheter. BUN 57. Cr 7.21. GFR 7. WBC 12.1. Cardiology following. NSTEMI -status post PCI to 99% ISR of ostial LCX (prior stent placed in 03/2024) on 09/17/24. Tolerated dialysis yesterday without Levophed. GI following for occult blood in stool. Exam Const: General: comfortable and no acute distress Eyes: General: appearance normal, both eyes and all related structures Neck: Neck: supple Resp: Effort & Inspection: normal respiratory effort Cardio: Rate: regular rate Extrem: Other: Left groin incision from temporary dialysis catheter covered with gauze and tegaderm. Clean and dry. No signs of active bleeding. Psych: Other: Patient very tired Objective Data Vital Signs Vital Signs: Vital Signs - 24 hr 09/20/24 12:00 09/20/24 12:00 09/20/24 12:00 Temperature 98.0 F Pulse Rate 82 74 Respiratory Rate 21 H Blood Pressure 92/50 L Pulse Oximetry 98 Oxygen Delivery Room Air 09/20/24 14:00 09/20/24 16:00 09/20/24 16:00 Temperature 98.5 F Pulse Rate 84 82 Respiratory Rate 13 Blood Pressure 112/63 Pulse Oximetry 95 Oxygen Delivery Room Air 09/20/24 16:00 09/20/24 18:00 09/20/24 20:00 Temperature Pulse Rate 86 77 Respiratory Rate Blood Pressure Pulse Oximetry Oxygen Delivery Room Air 09/20/24 20:00 09/20/24 20:00 09/20/24 22:00 Temperature 97.8 F Pulse Rate 82 79 70 Respiratory Rate 14 Blood Pressure 118/63 Pulse Oximetry 96 Oxygen Delivery 09/21/24 00:00 09/21/24 00:00 09/21/24 00:00 Temperature 98.4 F Pulse Rate 65 70 Respiratory Rate 16 Blood Pressure 118/58 L Pulse Oximetry 96 Oxygen Delivery Room Air 09/21/24 02:00 09/21/24 04:00 09/21/24 04:00 Temperature Pulse Rate 67 79 Respiratory Rate Blood Pressure Pulse Oximetry Oxygen Delivery Room Air 09/21/24 04:00 09/21/24 06:00 09/21/24 07:23 Temperature 98.1 F 97.6 F Pulse Rate 70 69 81 Respiratory Rate 16 14 Blood Pressure 118/58 L 110/70 Pulse Oximetry 96 96 Oxygen Delivery 09/21/24 08:00 09/21/24 08:00 09/21/24 10:00 Temperature Pulse Rate 68 68 80 Respiratory Rate 13 Blood Pressure Pulse Oximetry 98 Oxygen Delivery Room Air Intake/Output Intake/Output: Intake & Output 09/18/24 09/19/24 09/20/24 09/21/24 23:59 23:59 23:59 23:59 Intake Total 1825.9 1080 1080 120 Output Total 1750 2000 0 Balance 75.9 -920 1080 120 Meds/Results Medications: Active Medications Generic Name Dose Route Start Last Admin Trade Name Freq PRN Reason Stop Dose Admin Acetaminophen 650 mg 09/16/24 12:39 Acetaminophen 325 Mg Tablet PO Q4H PRN Mild Pain (1-3) Al Hydrox/Mg Hydrox/Simethicone 30 ml 09/16/24 12:39 Mag Hydrox/Al Hydrox/Simeth 30 Ml Udc PO Q6H PRN Indigestion Aspirin 81 mg 09/17/24 08:00 09/21/24 09:06 Aspirin 81 Mg Chewable Tablet PO 81 mg DAILY@0800 ROSALINDA Administration Albumin Human 50 mls @ 999 mls/hr 09/16/24 11:49 Albutein IVPB 10/16/24 11:48 Q10M PRN HYPOTENSION Levothyroxine Sodium 100 mcg 09/17/24 09:00 09/21/24 09:06 Levothyroxine Sodium 100 Mcg Tablet PO 100 mcg DAILY ROSALINDA Administration Midodrine 5 mg 09/20/24 09:00 09/21/24 09:06 Midodrine Hcl 2.5 Mg Tablet PO 5 mg TID ROSALINDA Administration Nitroglycerin 0.4 mg 09/16/24 12:39 09/17/24 12:41 Nitroglycerin Sl 0.4 Mg Tablet SUBLINGUAL 0.4 mg Q5MIN PRN Administration Chest Pain Ondansetron HCl 4 mg 09/16/24 09:08 09/17/24 19:35 Ondansetron Inj 4 Mg/2 Ml Vial IV PUSH 4 mg Q4H PRN Administration Nausea Pantoprazole Sodium 40 mg 09/18/24 09:00 09/21/24 09:06 Pantoprazole Sodium Iv 40 Mg Vial IV PUSH 40 mg Q12HR ROSALINDA Administration Phenol 1 spray 09/19/24 13:54 Phenol/Sod Pheno [place] Gray (*Bkc) MUCOUS MEM PRN PRN Sore Throat Polyethylene Glycol 17 gm 09/18/24 09:00 09/21/24 09:05 Polyethylene Glycol 3350 17 Gm Powd.Pack PO 17 gm QAM ROSALINDA Administration Rosuvastatin Calcium 10 mg 09/21/24 09:00 09/21/24 09:06 Rosuvastatin 10 Mg Tablet PO 10 mg DAILY ROSALINDA Administration Senna/Docusate Sodium 1 tab 09/18/24 21:00 09/20/24 21:08 Senna/Docusate Sodium Tablet PO 1 tab HS ROSALINDA Administration Ticagrelor 90 mg 09/18/24 09:00 09/21/24 09:06 Ticagrelor 90 Mg Tablet PO 90 mg Q12HR ROSALINDA Administration Radiology Results: ITS Impressions Chest X-Ray 09/20/24 06:33 Impression: Mild interstitial prominence, nonspecific, similar to prior exam. Correlate for mild interstitial edema or chronic interstitial disease or COPD. Labs Labs: Laboratory Results - last 24 hr 09/21/24 04:14 WBC 12.1 H RBC 2.52 L Hgb 7.6 L Hct 23.5 L MCV 93.3 MCH 30.2 MCHC 32.3 RDW 16.4 H Plt Count 199 MPV 10.4 Immature Gran % (Auto) 0.9 H Neut % (Auto) 76.4 H Lymph % (Auto) 8.0 L [place] % (Auto) 7.8 Eos % (Auto) 6.5 H Baso % (Auto) 0.4 Lymph # (Auto) 0.97 [place] # (Auto) 1.0 H Eos # (Auto) 0.8 H Baso # (Auto) 0.1 Abs Immat Gran (auto) 0.11 H Absolute Neuts (auto) 9.2 H Absolute Nucleated RBC 0.020 H Nucleated RBC % 0.2 PT 14.2 INR 1.1 APTT 29.1 Sodium 134 L Potassium 4.1 Chloride 99 Carbon Dioxide 27 Anion Gap 8 BUN 57 H D Creatinine 7.21 H Estim Creat Clear Calc 8 Estimated GFR 7 L Glucose 101 Calcium 8.6 Phosphorus 3.9 Magnesium 2.1 Total Bilirubin 1.0 AST 109 H ALT 188 H Alkaline Phosphatase 58 Total Protein 5.3 L Albumin 2.7 L
[2024-09-21 12:08] LABS: Hep B Core Ab, Total Negative (Negative)
--- NOTE | 2024-09-21 14:49 | P.PNCA_ITS ---
Progress Note: A&P Assessment and Plan (1) NSTEMI (non-ST elevated myocardial infarction): Code(s): I21.4 - Non-ST elevation (NSTEMI) myocardial infarction Status: Acute Plan -NSTEMI -status post PCI to 99% ISR of ostial LCX (prior stent placed in 03/2024) on 09/17/24; chest pain-free post PCI ------TTE showed normal LVEF of 60%, mild aortic stenosis-Elevated BNP of 8710 -ANNA MARIE with creatinine of 20 at presentation- getting dialyzed again today -Anemia- Hemoglobin in the low 8 -Hypotension-SBP in the 90s to low 100s. Levophed stopped. Midodrine started per ICU Plan: -Patient had ISR of his ostial LCX stent that was placed in 03/2024 status post PCI yesterday with 3.5 mm X 18 mm [employer] bee [place] JES[place]S (please see cath report for full details of procedure). He is at high risk for recurrent resten oses given ISR of recent stent. Recommend DAPT with aspirin 81 mg daily and ticagrelor 90 mg b.i.d. for longer than 1 year if he is able to tolerate it without any bleeding issues -will increase his rosuvastatin to 10 mg daily. LFTs continue to show slow but gradual improvement. -Check H&H daily and keep hemoglobin greater than 8 -Hold all antihypertensive meds. Start Metoprolol 12.5 mg p.o. b.i.d. when SBP greater than 110 mm Hg off Levophed -Check and replace electrolytes to keep potassium greater than 4 and magnesium greater than 2 Subjective Date/time seen: 09/21/24 14:49 Interval history: Reason for encounter: NSTEMI status post PCI to 99% thrombotic stenosis of ostial LCX on 09/17/2020 Interval history: No chest pain since PCI yesterday. No shortness of breath. He is on small dose of Levophed 7.5 microgram/minute with SBP in the 90s. He received 1 unit of PRBC transfusion and hemoglobin is still 7.2. Telemetry shows sinus rhythm. EKG shows sinus rhythm with no significant ST elevations or depressions. Date of service 09/19/2024: The Versed still on hold. Blood pressures are soft and stable. No chest pain or shortness of breath and states he feels much better overall Date of service 09/20/2024: Feeling fine. Tolerated dialysis without Levophed. No chest pain or shortness of breath. Date of service 09/21/2024: Continues to feel well today. He denies any chest pain, shortness of breath, palpitations. Review of Systems Review of Systems: Complete review of systems was performed and pertinent positives are reported in the HPI All systems reviewed & are unremarkable except as noted in HPI and below Constitutional: Constitutional: Denies body ache(s) ENT: Reports Normal hearing present Cardiovascular: Cardiovascular: Denies chest pain, Denies diaphoresis and De nies pedal edema Neurologic: Reports Normal hearing present Exam Narrative: General: Alert oriented x3, no acute distress Neck: Supple, no JVD Chest: Bilaterally clear to auscultation, no rales or rhonchi Cardiac: S1, S2 +, regular rate, regular rhythm, no murmurs or rubs Extremities: No pedal edema, no skin rash Neurologic: Alert and oriented x3, no focal neurological deficits Neuro: Cranial nerves: Yes Normal hearing present Objective Data Vital Signs Vital Signs: Vital Signs - 24 hr 09/20/24 16:00 09/20/24 16:00 09/20/24 16:00 Temperature 36.9 C Pulse Rate 82 86 Respiratory Rate 13 Blood Pressure 112/63 Pulse Oximetry 95 Oxygen Delivery Room Air 09/20/24 18:00 09/20/24 20:00 09/20/24 20:00 Temperature Pulse Rate 77 82 Respiratory Rate Blood Pressure Pulse Oximetry Oxygen Delivery Room Air 09/20/24 20:00 09/20/24 22:00 09/21/24 00:00 Temperature 36.6 C Pulse Rate 79 70 Respiratory Rate 14 Blood Pressure 118/63 Pulse Oximetry 96 Oxygen Delivery Room Air 09/21/24 00:00 09/21/24 00:00 09/21/24 02:00 Temperature 36.9 C Pulse Rate 65 70 67 Respiratory Rate 16 Blood Pressure 118/58 L Pulse Oximetry 96 Oxygen Delivery 09/21/24 04:00 09/21/24 04:00 09/21/24 04:00 Temperature 36.7 C Pulse Rate 79 70 Respiratory Rate 16 Blood Pressure 118/58 L Pulse Oximetry 96 Oxygen Delivery Room Air 09/21/24 06:00 09/21/24 07:23 09/21/24 08:00 Temperature 36.4 C Pulse Rate 69 81 68 Respiratory Rate 14 13 Blood Pressure 110/70 Pulse Oximetry 96 98 Oxygen Delivery Room Air 09/21/24 08:00 09/21/24 10:00 09/21/24 12:00 Temperature Pulse Rate 68 80 80 Respiratory Rate Blood Pressure Pulse Oximetry Oxygen Delivery 09/21/24 14:00 Temperature Pulse Rate 86 Respiratory Rate Blood Pressure Pulse Oximetry Oxygen Delivery Intake/Output Intake/Output: Intake & Output 09/18/24 09/19/24 09/20/24 09/21/24 23:59 23:59 23:59 23:59 Intake Total 1825.9 1080 1080 220 Output Total 1750 2000 0 25 Balance 75.9 -920 1080 195 Meds/Results Medications: Active Medications Generic Name Dose Route Start Last Admin Trade Name Freq PRN Reason Stop Dose Admin Acetaminophen 650 mg 09/16/24 12:39 Acetaminophen 325 Mg Tablet PO Q4H PRN Mild Pain (1-3) Al Hydrox/Mg Hydrox/Simethicone 30 ml 09/16/24 12:39 Mag Hydrox/Al Hydrox/Simeth 30 Ml Udc PO Q6H PRN Indigestion Aspirin 81 mg 09/17/24 08:00 09/21/24 09:06 Aspirin 81 Mg Chewable Tablet PO 81 mg DAILY@0800 ROSALINDA Administration Albumin Human 50 mls @ 999 mls/hr 09/16/24 11:49 Albutein IVPB 10/16/24 11:48 Q10M PRN HYPOTENSION Levothyroxine Sodium 100 mcg 09/17/24 09:00 09/21/24 09:06 Levothyroxine Sodium 100 Mcg Tablet PO 100 mcg DAILY ROSALINDA Administration Midodrine 5 mg 09/20/24 09:00 09/21/24 12:06 Midodrine Hcl 2.5 Mg Tablet PO 5 mg TID ROSALINDA Administration Nitroglycerin 0.4 mg 09/16/24 12:39 09/17/24 12:41 Nitroglycerin Sl 0.4 Mg Tablet SUBLINGUAL 0.4 mg Q5MIN PRN Administration Chest Pain Ondansetron HCl 4 mg 09/16/24 09:08 09/17/24 19:35 Ondansetron Inj 4 Mg/2 Ml Vial IV PUSH 4 mg Q4H PRN Administration Nausea Pantoprazole Sodium 40 mg 09/18/24 09:00 09/21/24 09:06 Pantoprazole Sodium Iv 40 Mg Vial IV PUSH 40 mg Q12HR ROSALINDA Administration Phenol 1 spray 09/19/24 13:54 Phenol/Sod Pheno [place] Gray (*Bkc) MUCOUS MEM PRN PRN Sore Throat Polyethylene Glycol 17 gm 09/18/24 09:00 09/21/24 09:05 Polyethylene Glycol 3350 17 Gm Powd.Pack PO 17 gm QAM ROSALINDA Administration Rosuvastatin Calcium 10 mg 09/21/24 09:00 09/21/24 09:06 Rosuvastatin 10 Mg Tablet PO 10 mg DAILY ROSALINDA Administration Senna/Docusate Sodium 1 tab 09/18/24 21:00 09/20/24 21:08 Senna/Docusate Sodium Tablet PO 1 tab HS ROSALINDA Administration Ticagrelor 90 mg 09/18/24 09:00 09/21/24 09:06 Ticagrelor 90 Mg Tablet PO 90 mg Q12HR ROSALINDA Administration Radiology Results: ITS Impressions Chest X-Ray 09/20/24 06:33 Impression: Mild interstitial prominence, nonspecific, similar to prior exam. Correlate for mild interstitial edema or chronic interstitial disease or COPD. Labs Labs: Laboratory Results - last 24 hr 09/20/24 09/21/24 03:47 04:14 WBC 12.1 H RBC 2.52 L Hgb 7.6 L Hct 23.5 L MCV 93.3 MCH 30.2 MCHC 32.3 RDW 16.4 H Plt Count 199 MPV 10.4 Immature Gran % (Auto) 0.9 H Neut % (Auto) 76.4 H Lymph % (Auto) 8.0 L [place] % (Auto) 7.8 Eos % (Auto) 6.5 H Baso % (Auto) 0.4 Lymph # (Auto) 0.97 [place] # (Auto) 1.0 H Eos # (Auto) 0.8 H Baso # (Auto) 0.1 Abs Immat Gran (auto) 0.11 H Absolute Neuts (auto) 9.2 H Absolute Nucleated RBC 0.020 H Nucleated RBC % 0.2 PT 14.2 INR 1.1 APTT 29.1 Sodium 134 L Potassium 4.1 Chloride 99 Carbon Dioxide 27 Anion Gap 8 BUN 57 H D Creatinine 7.21 H Estim Creat Clear Calc 8 Estimated GFR 7 L Glucose 101 Calcium 8.6 Phosphorus 3.9 Magnesium 2.1 Total Bilirubin 1.0 AST 109 H ALT 188 H Alkaline Phosphatase 58 Total Protein 5.3 L Albumin 2.7 L Hep B Core Total Ab Negative Quality VTE Prophylaxis VTE prophylaxis: mechanical ordered
[2024-09-21] MEDS: ONDANSETRON INJ 4 MG/2 ML VIAL IV PUSH (16:45)
[2024-09-21] MEDS: SENNA/DOCUSATE SODIUM TABLET 1 TAB PO (20:27)
--- NOTE | 2024-09-21 23:52 | PC.NURSE ---
This patient, Derrek Diaz, was transferred to [facility] on 09/21/24 at 2335. Personal belongings sent with patient. Report given to Nicole NUNEZ. Appropriate documentation sent with patient.
[2024-09-22] VITALS (29 sets, daily range): BP systolic 99–125; BP diastolic 48–70; PULSE 66–86; RESP 12–19; TEMP 36.6–37.1; O2SAT 94–97
[2024-09-22 05:25] LABS: Hematocrit 23.1 % (42.0-52.0); Hemoglobin 7.2 g/dL (14.0-18.0); Immature Granulocyte Percent A 1.2 % (0-0.5); Lymphocytes Absolute Auto 0.96 K/mm3 (0.9-3.2); Mean Corpuscular HGB Conc 31.2 g/dl (32-36); Mean Corpuscular Hemoglobin 29.6 pg (26-34); Mean Corpuscular Volume 95.1 fl (80-100); Nucleated Red Blood Cells Absolute Auto 0.000 K/mm3 (0.0-0.012); Nucleated Red Blood Cells Perc 0.0 % (0.0-0.2); Platelet Count Result 205 k/mm3 (150-375); Red Blood Count 2.43 M/mm3 (4.6-6.20); White Blood Count 10.9 K/mm3 (4.5-10.0)
[2024-09-22 05:51] LABS: Anion Gap 10 mmol/L (4-12); Blood Urea Nitrogen 71 mg/dL (9-20); Calcium 8.4 mg/dL (8.4-10.2); Carbon Dioxide 27 mmol/L (22-30); Chloride 96 mmol/L (98-107); Estimated CRCL calculation 7 ml/min; Estimated Glomerular Filt Rate 6; Glucose 88 mg/dL (65-110); Magnesium 2.3 mg/dL (1.6-2.3); Potassium 4.2 mmol/L (3.4-5.0); Sodium 133 mmol/L (137-145)
--- NOTE | 2024-09-22 11:07 | PC.NURSE ---
pt to surgery via bed
--- NOTE | 2024-09-22 11:31 | P.PNAN_ITS ---
Anes - Initial Pre Proc Eval Procedure: Operation Date: 09/22/24 12:30 Proposed Procedures p Insertion Tunneled Dialysis Catheter - Elaine Bravo MD Date/Time: 09/22/24 11:31 Surgeon: Duane Jean MD Pre Op Diagnosis: acute on chronic renal failure,volume overload,hyp Patient Data Age: 73 Gender: M Height: 1.75 m Weight: 79.4 kg Last Vital Signs Temp 36.9 C 09/22/24 11:26 Pulse 72 09/22/24 11:26 Resp 18 09/22/24 11:26 BP 109/60 09/22/24 11:26 Pulse Ox 97 09/22/24 11:26 O2 Del Method Room Air 09/22/24 11:26 O2 Flow Rate 2 09/18/24 04:00 FiO2 21 09/16/24 22:17 Allergies Allergy/AdvReac Type Severity Reaction Status Date / Time No Known Allergies Allergy Verified 09/22/24 11:17 Home Medications ?Medication ?Instructions ?Recorded ?Confirmed ?Type ascorbic acid (vitamin C) 500 mg 500 mg PO DAILY 02/06/20 09/16/24 History tablet folic acid 1 mg tablet 1 mg PO DAILY 02/06/20 09/16/24 History levothyroxine 100 mcg tablet 100 mcg PO DAILY 02/06/20 09/16/24 History (Synthroid) rosuvastatin 5 mg tablet 5 mg PO DAILY 05/22/22 09/16/24 History nifedipine 30 mg tablet,extended 30 mg PO DAILY 09/16/24 09/16/24 History release 24 hr ticagrelor 90 mg tablet (Brilinta) 90 mg PO Q12HR 30 days #60 tabs 09/20/24 Rx Laboratory Tests 09/20/24 09/22/24 03:47 04:39 WBC 10.9 H K/mm3 (4.5-10.0) RBC 2.43 L M/mm3 (4.6-6.20) Hgb 7.2 L g/dL (14.0-18.0) Hct 23.1 L % (42.0-52.0) MCV 95.1 fl (80-100) MCH 29.6 pg (26-34) MCHC 31.2 L g/dl (32-36) RDW 17.1 H % (11.5-14.5) Plt Count 205 k/mm3 (150-375) MPV 10.8 H fl (7.4-10.4) Immature Gran % (Auto) 1.2 H % (0-0.5) Neut % (Auto) 74.7 H % (45.5-73.1) Lymph % (Auto) 8.8 L % (18.3-44.2) [place] % (Auto) 8.3 % (2.6-8.5) Eos % (Auto) 6.7 H % (0-4.4) Baso % (Auto) 0.3 % (0.2-1.2) Lymph # (Auto) 0.96 K/mm3 (0.9-3.2) [place] # (Auto) 0.9 H K/mm3 (0.1-0.6) Eos # (Auto) 0.7 H K/mm3 (0-0.3) Baso # (Auto) 0.0 K/mm3 (0.0-0.1) Abs Immat Gran (auto) 0.13 H K/mm3 (0.00-0.031) Absolute Neuts (auto) 8.2 H K/mm3 (1.3-6.7) Absolute Nucleated RBC 0.000 K/mm3 (0.0-0.012) Nucleated RBC % 0.0 % (0.0-0.2) Sodium 133 L mmol/L (137-145) Potassium 4.2 mmol/L (3.4-5.0) Chloride 96 L mmol/L (98-107) Carbon Dioxide 27 mmol/L (22-30) Anion Gap 10 mmol/L (4-12) BUN 71 H D mg/dL (9-20) Creatinine 8.88 H mg/dL (0.7-1.3) Estim Creat Clear Calc 7 ml/min Estimated GFR 6 L (59 - ) Glucose 88 mg/dL (65-110) Calcium 8.4 mg/dL (8.4-10.2) Phosphorus 5.5 H mg/dL (2.5-4.5) Magnesium 2.3 mg/dL (1.6-2.3) Hep B Core Total Ab Negative (Negative) Patient hx anesthesia problems: none Family hx anesthesia problems: none Results Review: All pre-operative results and documents have been reviewed as part of the pre- operative evaluation. PMFSH Past Medical History Medical History (Updated 09/19/24 @ 10:23 by Álvaro Darby MD) Occult blood in stools Acute on chronic anemia History of right common carotid artery stent placement Coronary artery disease Adenomatous colon polyp Hypertension Surgical History Surgical History History of percutaneous coronary intervention Social History Social History Smoking packs per day: 2 Smoking cigarettes per day: 40.0 Years smoked: 50 Smoking pack-years: 100.00 Smoking status: Former smoker Tobacco type: cigarettes Second hand tobacco smoke exposure: Yes Smoking end date: 09/06/13 Alcohol intake: current Drinks per week: 2 Alcohol use details: BEERS Substance use: never Substance use type: does not use Do You Feel Safe in your Home?: Yes Lack of Transportation: No Lack of Food: Never True Current Housing: I Have Housing Concerned About Future Housing: No Difficulty Paying Gas/Electric Bills: No Difficulty Paying for Meds: No Currently Unemployed: No Education: High School Diploma/GED Difficulty w/ Childcare or Family Care: No Living arrangements: with family Gender identity (if verbalized by the patient): Male Spiritual care concerns: No Anes - Eval Final PreProcedure Day of Procedure 09/22/24 11:31 Patient weight: overweight Heart: regular rate and rhythm Lungs: clear to auscultation Airway: Mallampati scale class III Neurological: alert and oriented Last oral intake: >/= 8 hours ASA classification: IV Emergent: no Anesthetic plan: proceed Anesthesia type and monitoring: general GIVS and standard monitoring Results Review: All pre-operative results and documents have been reviewed as part of the pre- operative evaluation. Informed Consent: The patient's anesthetic plan and its attendant risks and benefits were discussed with the patient/family/POA. Questions were solicited and answers provided to the satisfaction of the patient/family/POA.
[2024-09-22] MEDS: SODIUM CHLORIDE 0.9% IV 500 ML 30 ML IV CONT (12:15)
--- NOTE | 2024-09-22 12:23 | WPDHPUPDATE1 ---
History and Physical Update Update Date/Time: 09/22/24 12:23 History and Physical has been reviewed, including an updated exam of the patient. There are NO changes in the patient's condition. Risks, benefits, and alternatives have been discussed and questions answered. Patient agrees to proceed with procedure.
--- NOTE | 2024-09-22 12:36 | PM.IMPN ---
Progress Note: A&P Assessment and Plan (1) NSTEMI (non-ST elevated myocardial infarction): Code(s): I21.4 - Non-ST elevation (NSTEMI) myocardial infarction Status: Acute Assessment and Plan: 09/16: Patient presented with generalized weakness, chest pain. Was found to be in acute on chronic renal failure with creatinine of 20 and BUN of 161. -troponins peaked at 5.05 -09/17: status post PTCA/PCI with JESÚS x1 to left circumflex which had a 99% in stent restenoses of the ostial circumflex -continue aspirin, ticagrelor, rosuvastatin -patient did have cardiogenic shock on the cardiac cath table requiring Kyrie-Synephrine, started on Levophed which is being weaned, maintain MAP 60-65 mmHg per Cardiology -off Levophed since the evening of 09/18 -09/18: hemoglobin 7.3. Cardiology requested 1 unit of packed RBCs to to keep hemoglobin > 8.0 -cardiology following the patient 09/17/2024: Echocardiogram: Summary 1. Complete two-dimensional, color flow and Doppler transthoracic echocardiogram is performed. 2. This was a technically difficult study with poorly visualized acoustic windows and limited views. 3. There is normal biventricular size and systolic function. EF 60-65%, normal RV systolic function. 4. There is at least mild aortic stenosis. Due to limited windows and poorly visualized acoustic views, unable to quantify the degree of aortic stenosis in this study. (2) Acute on chronic renal failure: Qualifiers: Acute renal failure type: unspecified Chronic kidney disease stage: unspecified stage Qualified Code(s): N17.9 - Acute kidney failure, unspecified; N18.9 - Chronic kidney disease, unspecified Code(s): N17.9 - Acute kidney failure, unspecified; N18.9 - Chronic kidney disease, unspecified Status: Acute Assessment and Plan: Patient presented with generalized weakness, decreased appetite and p.o. intake. He did continue to take his blood pressure medications -creatinine was 20.08, BUN was 164 potassium was 6.0 on admission -could be related to low flow state due to hypotension, coronary artery disease, decreased p.o. intake, low flow state -09/16: Dialysis catheter was placed by surgery more right femoral vein -09/16: Nephrology was consulted and started on dialysis -09/17, 09/18: Dialyzed -patient is anuric, BUN creatinine trending down, -patient to get dialyzed again today after discussing with Nephrology -09/19: Temporary dialysis catheter was removed after discussion with Nephrology -09/19: Nephrology has consulted surgery to place tunneled dialysis catheter -09/20: midodrine 5 mg t.i.d. due to borderline blood pressure -tunneled dialysis catheter planned today by surgery (3) Anemia: Qualifiers: Anemia type: due to chronic kidney disease Chronic kidney disease stage: unspecified stage Qualified Code(s): N18.9 - Chronic kidney disease, unspecified; D63.1 - Anemia in chronic kidney disease Code(s): D64.9 - Anemia, unspecified Status: Acute Assessment and Plan: Patient anemic on admission, hemoglobin was 9.0 (hemoglobin in March was 12.1) -09/17: Transfused 1 unit of packed RBCs -09/18: Hemoglobin 7.3 cardiology requested 1 unit of packed RBCs to maintain Hb > 8.0 since he has coronary artery disease. Transfused 1 unit of packed RBCs -patient denies any regular NSAID use -denies any dark stools or coffee-ground emesis, hematemesis, hematochezia -history of removal of colonic polyp on 05/10/2022 you on a colonoscopy done here at [facility] -no iron deficiency on iron panel -vitamin B12 and folate were normal -stool for occult blood was positive -appreciate GI evaluation and recommendation -Protonix IV q.12 hours -09/19: Patient did have melanotic stool. -hemoglobin remained stable, discuss with GI, will continue to monitor H&H drifting downward. Currently at 7.2. With underlying coronary artery disease will transfuse 1 unit of PRBC. (4) Coronary artery disease: Code(s): I25.10 - Atherosclerotic heart disease of [place] coronary artery without angina pectoris Status: Acute Assessment and Plan: Patient has a history of coronary artery disease and stent x2 in March 2024 at [facility] (5) Hypertension: Code(s): I10 - Essential (primary) hypertension Status: Acute Assessment and Plan: History of essential hypertension, will hold antihypertensives. Recent vasopressor use, -blood pressure is currently stable -midodrine added (6) Transaminitis: Code(s): R74.01 - Elevation of levels of liver transaminase levels Status: Acute Assessment and Plan: Elevated LFTs likely related to coronary artery disease, renal function, hypotension, low-flow state -LFTs improving with better blood pressures and adequate perfusion -continue to monitor (7) Electrolyte imbalance: Code(s): E87.8 - Other disorders of electrolyte and fluid balance, not elsewhere classified Status: Acute Assessment and Plan: Hyperkalemia on admission has resolved with dialysis, continue to monitor Plan DVT prophylaxis: SCDs for now since patient is anemia Stress ulcer prophylaxis: Protonix IV q.12 hours Nutrition: Renal and heart healthy diet Code Status: Full code Subjective Date/time seen: 09/22/24 12:36 Interval history: Chart reviewed. Patient had no new complaints. Patient going for a dialysis catheter placement today. No chest pain or shortness of breath. No leg swelling. Review of Systems Review of Systems: All systems reviewed & are unremarkable except as noted in HPI and below Exam Narrative: General: Pleasant gentleman in no acute distress HEENT:? Pupils equal and reactive, sclera is clear Neck:? Supple Respiratory:? Coarse breath sounds on the right side as compared to the left, no wheezing, adequate air entry Cardiac:? S1-S2 is normal, regular rate and rhythm Abdomen:? Soft, nontender, nondistended, normoactive bowel sound Extremities:? Trace edema, palpable pedal pulses. Right radial artery palpable, no evidence of hematoma or ecchymoses on the right wrist at the site of catheterization Neuro:? Patient is awake, alert, oriented, nonfocal, able to answer questions appropriately and follows simple commands Skin:? No lesions noted, Psych:? Normal mentation and affect Objective Data Vital Signs Vital Signs: Vital Signs - 24 hr 09/21/24 14:00 09/21/24 14:25 09/21/24 16:00 Temperature Pulse Rate 86 74 Respiratory Rate Blood Pressure Pulse Oximetry Oxygen Delivery Room Air 09/21/24 16:00 09/21/24 18:00 09/21/24 20:00 Temperature 98.2 F Pulse Rate 66 63 Respiratory Rate 18 Blood Pressure 116/65 Pulse Oximetry 94 98 Oxygen Delivery Room Air 09/21/24 20:00 09/22/24 00:00 09/22/24 04:00 Temperature Pulse Rate 81 66 72 Respiratory Rate Blood Pressure Pulse Oximetry Oxygen Delivery 09/22/24 05:32 09/22/24 07:58 07/15/25 09:25 Temperature 98.2 F Pulse Rate 69 Respiratory Rate 14 Blood Pressure 111/48 L Pulse Oximetry 95 Oxygen Delivery Room Air Room Air 09/22/24 11:26 Temperature 98.5 F Pulse Rate 72 Respiratory Rate 18 Blood Pressure 109/60 Pulse Oximetry 97 Oxygen Delivery Room Air Intake/Output Intake/Output: Intake & Output 09/19/24 09/20/24 09/21/24 09/22/24 23:59 23:59 23:59 23:59 Intake Total 1080 1080 460 240 Output Total 1999 0 25 Balance -920 1080 435 240 Meds/Results Medications: Active Medications Generic Name Dose Route Start Last Admin Trade Name Freq PRN Reason Stop Dose Admin Acetaminophen 650 mg 09/16/24 12:39 Acetaminophen 325 Mg Tablet PO Q4H PRN Mild Pain (1-3) Al Hydrox/Mg Hydrox/Simethicone 30 ml 09/16/24 12:39 Mag Hydrox/Al Hydrox/Simeth 30 Ml Udc PO Q6H PRN Indigestion Aspirin 81 mg 09/17/24 08:00 09/21/24 09:06 Aspirin 81 Mg Chewable Tablet PO 81 mg DAILY@0800 ROSALINDA Administration Epoetin Brandon-epbx 20,000 units 09/22/24 19:01 Epoetin Brandon-Epbx 20,000 Units/Ml Vial IV PUSH 09/22/24 19:02 ONCE ONE Albumin Human 50 mls @ 999 mls/hr 09/16/24 11:49 Albutein IVPB 10/16/24 11:48 Q10M PRN HYPOTENSION Sodium Chloride 500 mls @ 30 mls/hr 09/22/24 12:10 Normal Saline Iv IV CONT .[id number] ROSALINDA Sodium Chloride 500 mls @ 30 mls/hr 09/22/24 12:10 Normal Saline Iv IV CONT .[id number] ROSALINDA Levothyroxine Sodium 100 mcg 09/17/24 09:00 09/21/24 09:06 Levothyroxine Sodium 100 Mcg Tablet PO 100 mcg DAILY ROSALINDA Administration Midodrine 5 mg 09/20/24 09:00 09/21/24 18:07 Midodrine Hcl 2.5 Mg Tablet PO Not Given TID ROSALINDA Nitroglycerin 0.4 mg 09/16/24 12:39 09/17/24 12:41 Nitroglycerin Sl 0.4 Mg Tablet SUBLINGUAL 0.4 mg Q5MIN PRN Administration Chest Pain Ondansetron HCl 4 mg 09/16/24 09:08 09/21/24 16:45 Ondansetron Inj 4 Mg/2 Ml Vial IV PUSH 4 mg Q4H PRN Administration Nausea Ondansetron HCl 4 mg 09/22/24 12:09 Ondansetron Inj 4 Mg/2 Ml Vial IV PUSH ONCE PRN Nausea Pantoprazole Sodium 40 mg 09/18/24 09:00 09/21/24 20:27 Pantoprazole Sodium Iv 40 Mg Vial IV PUSH 40 mg Q12HR ROSALINDA Administration Phenol 1 spray 09/19/24 13:54 Phenol/Sod Pheno [place] Gray (*Bkc) MUCOUS MEM PRN PRN Sore Throat Polyethylene Glycol 17 gm 09/18/24 09:00 09/21/24 09:05 Polyethylene Glycol 3350 17 Gm Powd.Pack PO 17 gm QAM ROSALINDA Administration Rosuvastatin Calcium 10 mg 09/21/24 09:00 09/21/24 09:06 Rosuvastatin 10 Mg Tablet PO 10 mg DAILY ROSALINDA Administration Senna/Docusate Sodium 1 tab 09/18/24 21:00 09/21/24 20:27 Senna/Docusate Sodium Tablet PO 1 tab HS ROSALINDA Administration Ticagrelor 90 mg 09/18/24 09:00 09/21/24 20:27 Ticagrelor 90 Mg Tablet PO 90 mg Q12HR ROSALINDA Administration Radiology Results: ITS Impressions Chest X-Ray 09/20/24 06:33 Impression: Mild interstitial prominence, nonspecific, similar to prior exam. Correlate for mild interstitial edema or chronic interstitial disease or COPD. Labs Labs: Laboratory Results - last 24 hr 09/22/24 04:39 WBC 10.9 H RBC 2.43 L Hgb 7.2 L Hct 23.1 L MCV 95.1 MCH 29.6 MCHC 31.2 L RDW 17.1 H Plt Count 205 MPV 10.8 H Immature Gran % (Auto) 1.2 H Neut % (Auto) 74.7 H Lymph % (Auto) 8.8 L [place] % (Auto) 8.3 Eos % (Auto) 6.7 H Baso % (Auto) 0.3 Lymph # (Auto) 0.96 [place] # (Auto) 0.9 H Eos # (Auto) 0.7 H Baso # (Auto) 0.0 Abs Immat Gran (auto) 0.13 H Absolute Neuts (auto) 8.2 H Absolute Nucleated RBC 0.000 Nucleated RBC % 0.0 Sodium 133 L Potassium 4.2 Chloride 96 L Carbon Dioxide 27 Anion Gap 10 BUN 71 H D Creatinine 8.88 H Estim Creat Clear Calc 7 Estimated GFR 6 L Glucose 88 Calcium 8.4 Phosphorus 5.5 H Magnesium 2.3
[2024-09-22] MEDS: HEPARIN SODIUM LOCK FLUSH 500 UNITS/5 ML VIAL IV PUSH (12:39)
[2024-09-22] MEDS: LIDO 1%/EPINEPHRINE 1:100,000 20 ML VIAL 13 ML INFILTRATE (12:39)
[2024-09-22] MEDS: ceFAZolin 2 GM in SODIUM CHLORIDE 0.9% IV 50 ML 100 ML IVPB (13:01)
[2024-09-22] MEDS: HEPARIN SODIUM, PORCINE 10,000 UNITS/10 ML VIAL 10000 UNITS IV PUSH (13:01)
--- NOTE | 2024-09-22 13:03 | PCOTNOTE ---
Patient out of the room at this time. Patient is down having a tunnel catheter placed.
--- NOTE | 2024-09-22 13:21 | P.OP_ITS ---
Procedure Note - Detailed Date of Procedure 09/22/24 Pre-op Diagnosis Acute renal failure Post-op Diagnosis Same Procedure Performed placement of 28 cm tunneled hemodialysis catheter in left internal jugular vein under both ultrasound and fluroscopic guidance Surgeon Elaine Bravo MD Anesthesia MAC and Local Indications 73-year-old male with multiple medical issues presenting with acute on chronic renal failure Findings 1st stick LIJ Description of Procedure Patient was taken to the operating room and placed in the supine position. After adequate induction of general anesthesia, the patient was prepped and draped in normal sterile fashion. A time-out was then done to verify the patient's identity as well as the procedure being performed. I began by using the SonoSite and locating the left internal jugular vein. Once this was done, I localized the overlying skin. I then made a small incision in the skin. I then gained access into the left internal jugular vein with an 18 gauge needle. At t his point, I threaded the guidewire into the left internal jugular vein. Placement of the guidewire was confirmed by both ultrasound and fluoroscopic guidance. I then went ahead and measured the 28 cm tunneled dialysis catheter to our stick site in the left neck. I then localized the tract going from the left chest to the left neck. I then made a small incision in the left chest and tunneled the catheter to the left neck. I then serially dilated the left internal jugular vein under fluoroscopic guidance. Once adequately dilated, I placed the dilating sheath over the guidewire into the left internal jugular vein under fluoroscopic visualization. Once this was noted to be in good position, I removed both the guidewire and dilator, now just leaving the sheath in the vein. I then went ahead and fed the previously tunneled catheter into the sheath. Once the catheter was fed and positioned correctly, I went ahead and peeled the sheath away. Final fluoroscopic view showed the catheter in good position from its insertion point in the left chest to its termination in the atrial caval junction. It was noted there was no kinking of the catheter. I was able to easily draw and flush from both ports of the catheter. I placed 2.2 and 2.3 cc of final heparin flush into each port as marked. The catheter was then sutured into place and the incision in the neck was closed with 4 O Monocryl subcuticular suture. The patient tolerated the procedure well and will be transferred to the PACU in critical condition. Sterile dressing was placed on the catheter. Portable chest x-ray will be done in the PACU. Implants 28 cm tunneled hemodialysis catheter Estimated Blood Loss 20 Urine Output 0 Drains No Packing No Pathology None sent Complications No immediate complications Condition Stable Disposition PACU [facility] Billing Surgery - Charge Forward: Surgery Billing
--- NOTE | 2024-09-22 14:20 | SUR.PHASEI ---
Dr Bravo notified of CXR results via telephone by this RN. Per MD young to use catheter for dialysis. See order.
--- NOTE | 2024-09-22 17:11 | P.PNNP_ITS ---
Progress Note: A&P Assessment and Plan (1) Acute kidney injury: Code(s): N17.9 - Acute kidney failure, unspecified Status: Acute Assessment and Plan: * etiology not clear * significant decline in renal function/creatinine noted by labs on admission * suspect/possibly due to hypotension +/- cardiac event/NSTEMI * evaluation to date noted: * renal ultrasound in July 2024 was normal * unable to check urine studies since anuric * due to hyperkalemia, severe acidosis, and possible uremia, initiated on dialysis (09/16) * s/p temporary femoral line by Surgery * HD on 09/16, 09/17, 09/18, and 09/19 * HD today * s/p tunneled HD catheter today (09/22) * likely plan HD treatment tomorrow since outpatient schedule to be Sat/Sat/Saturday * follow trend of electrolytes, acidosis, and clearance * follow trend of repeat labs and UOP to assess for potential recovery * outpatient dialysis being finalized (2) Chronic kidney disease: Code(s): N18.9 - Chronic kidney disease, unspecified Status: Chronic Assessment and Plan: * specifics are not clear... * according to patient, last testing ~ 1 month ago noted his kidney function at 40% * last creatinine here in March 2024 was 1.28mg/dl * attempting to obtain records from primary bindery machine tender (Dr. Robert Shultz) regarding baseline kidney function and what evaluation has been done * records still not available for review (3) NSTEMI (non-ST elevated myocardial infarction): Code(s): I21.4 - Non-ST elevation (NSTEMI) myocardial infarction Status: Acute Assessment and Plan: * elevated troponins and admission EKG noted * s/p heparin gtt * Cardiology following * s/p cardiac catheterization (09/17) with findings/interventions noted: * left main coronary artery is widely patent without any significant obstructive disease; prior stent in left main from 03/2024 is widely patent * LAD and the diagonal branches have mild luminal irregularities without any significant obstructive angiographic disease; prior stent in the proximal LAD from 03/2024 is widely patent * left circuflex with 99% instent restenoses (stent was placed in 03/2024) of ostial LCX; there is 60% calcified stenosis in mid LCX; distal LCX is very tiny and diffusely diseased; OM branches have minor luminal irregularities; following initial diagnostic image of the left system the flow in LCX decreased from RHODA 3 to RHODA 1 due to significant ostial LCX stenosis * proximal RCA has 30% stenosis; Right dominant circulation; distal RCA, RPDA, and RPLA appear diffusely thready without any focal stenosis due to spasm * status post successful IVUS guided PCI to 99% InStent restenoses of ostial LCX (culprit for patient's presentation) with 3.5 mm X 18 mm [employer] bee [place] JESÚS followed by post-dilation with a 3.5 mm X 15 mm NC balloon, KBI with 3.5 mm X 15 mm NC balloon in LCX and 3.5 mm X 15 mm NC balloon in LAD, and final POT with 4.0 mm X 15 mm NC balloon balloon * on ASA and ticagrelor * on statin * start BB when BP allows * continue medical management (4) Hyperkalemia: Code(s): E87.5 - Hyperkalemia Status: Acute Assessment and Plan: * resolved with DATA MANAGEMENT CONSULTANT/dialysis * noted on admission * resistant to medical therapy with ER interventions * follow trend of K+ (5) Metabolic acidosis: Code(s): E87.20 - Acidosis, unspecified Status: Acute Assessment and Plan: * improvement/corrected with dialysis * presumably due to severity of ANNA MARIE * lactic acid normal (6) Anemia: Qualifiers: Anemia type: due to chronic kidney disease Chronic kidney disease stage: unspecified stage Qualified Code(s): N18.9 - Chronic kidney disease, unspecified; D63.1 - Anemia in chronic kidney disease Code(s): D64.9 - Anemia, unspecified Status: Acute Assessment and Plan: * presumably related to ANNA MARIE +/- CKD and acute illness * PRBC transfusion per protocol * 2 units since admission * another unit to be given with HD today * Epogen with HD * anemia studies with adequate iron stores; b12 and folate acceptable * seen by GI with recommendations noted * no plans for EGD at this time * follow trend of H/H (7) Hypertension: Code(s): I10 - Essential (primary) hypertension Status: Chronic Assessment and Plan: * soft since admission * was on low dose levophed gtt post cardiac catheterization * wean off 09/19 * holding midodrine * follow trend of hemodynamics (8) Transaminitis: Code(s): R74.01 - Elevation of levels of liver transaminase levels Status: Acute Assessment and Plan: * as noted by admission labs * presumably due cardiac event and subsequent hypoperfusion (?) * slow improvement noted * follow trend Will continue to follow. L Subjective Date/time seen: 09/22/24 17:11 Interval history: Follow-up for acute kidney injury/acute renal failure on chronic kidney disease (requiring DATA MANAGEMENT CONSULTANT/hemodialysis). Tolerating dialysis treatment at the time of my visit (seen on HD at 5:00pm); no complaints with regard to chest pain or shortness of breath; s/p tunneled HD catheter placement earlier this afternoon; no other issues/events overnight or earlier this morning. L Exam 2 Narrative: General: elderly but WD/WN male in NAD Heart: normal S1 and S2; no rub Lungs: clear to auscultation Abdomen: soft, nontender, nondistended, positive bowel sounds Extremities: no cyanosis or clubbing; no edema Skin: warm and intact Objective Data Vital Signs Vital Signs: Vital Signs Temp Pulse Resp BP Pulse Ox O2 Del Method 09/22/24 17:00 74 109/69 09/22/24 16:45 74 99/67 L 09/22/24 16:30 75 99/67 L 09/22/24 16:21 75 119/65 09/22/24 16:21 97.9 F 75 18 119/65 09/22/24 16:15 72 106/65 09/22/24 16:00 72 09/22/24 16:00 70 101/68 09/22/24 15:45 75 122/60 09/22/24 15:30 75 110/57 L 09/22/24 15:30 98.4 F 75 18 110/57 L 09/22/24 15:20 98.1 F 76 18 99/66 L 09/22/24 15:15 75 106/67 09/22/24 15:15 98.1 F 75 18 106/57 L 09/22/24 15:00 73 106/67 09/22/24 14:48 76 118/67 09/22/24 14:41 97.8 F 75 16 111/70 09/22/24 14:25 98.2 F 71 12 100/56 L 96 Room Air 09/22/24 14:10 71 17 108/57 L 96 Room Air 09/22/24 13:55 70 19 100/64 94 Room Air 09/22/24 13:40 71 14 125/64 95 Room Air 09/22/24 13:27 98.8 F 67 16 120/61 97 Room Air 09/22/24 11:26 98.5 F 72 18 109/60 97 Room Air 09/22/24 09:25 Room Air 09/22/24 08:00 69 09/22/24 07:58 Room Air 09/22/24 05:32 98.2 F 69 14 111/48 L 95 09/22/24 04:00 72 09/22/24 00:00 66 09/21/24 20:00 81 09/21/24 20:00 98 Room Air Intake/Output Intake/Output: Intake & Output 09/19/24 09/20/24 09/21/24 09/22/24 23:59 23:59 23:59 23:59 Intake Total 1080 1080 460 590 Output Total 1999 0 25 1500 Balance -920 [facility] 435 910 Meds/Results Medications: Active Medications Generic Name Dose Route Start Last Admin Trade Name Freq PRN Reason Stop Dose Admin Acetaminophen 650 mg 09/16/24 12:39 Acetaminophen 325 Mg Tablet PO Q4H PRN Mild Pain (1-3) Al Hydrox/Mg Hydrox/Simethicone 30 ml 09/16/24 12:39 Mag Hydrox/Al Hydrox/Simeth 30 Ml Udc PO Q6H PRN Indigestion Aspirin 81 mg 09/17/24 08:00 09/22/24 09:00 Aspirin 81 Mg Chewable Tablet PO Not Given DAILY@0800 ROSALINDA Albumin Human 50 mls @ 999 mls/hr 09/16/24 11:49 Albutein IVPB 10/16/24 11:48 Q10M PRN HYPOTENSION Sodium Chloride 250 mls @ 30 mls/hr 09/22/24 12:41 Normal Saline Iv IV CONT 09/22/24 21:00 .Q8H20M STA Levothyroxine Sodium 100 mcg 09/17/24 09:00 09/22/24 09:00 Levothyroxine Sodium 100 Mcg Tablet PO Not Given DAILY ROSALINDA Midodrine 5 mg 09/20/24 09:00 09/22/24 17:00 Midodrine Hcl 2.5 Mg Tablet PO Not Given TID ROSALINDA Nitroglycerin 0.4 mg 09/16/24 12:39 09/17/24 12:41 Nitroglycerin Sl 0.4 Mg Tablet SUBLINGUAL 0.4 mg Q5MIN PRN Administration Chest Pain Ondansetron HCl 4 mg 09/16/24 09:08 09/21/24 16:45 Ondansetron Inj 4 Mg/2 Ml Vial IV PUSH 4 mg Q4H PRN Administration Nausea Pantoprazole Sodium 40 mg 09/18/24 09:00 09/22/24 19:57 Pantoprazole Sodium Iv 40 Mg Vial IV PUSH 40 mg Q12HR ROSALINDA Administration Phenol 1 spray 09/19/24 13:54 Phenol/Sod Pheno [place] Gray (*Bkc) MUCOUS MEM PRN PRN Sore Throat Polyethylene Glycol 17 gm 09/18/24 09:00 09/22/24 17:26 Polyethylene Glycol 3350 17 Gm Powd.Pack PO Not Given QAM ROSALINDA Rosuvastatin Calcium 10 mg 09/21/24 09:00 09/22/24 17:27 Rosuvastatin 10 Mg Tablet PO Not Given DAILY ROSALINDA Senna/Docusate Sodium 1 tab 09/18/24 21:00 09/22/24 19:57 Senna/Docusate Sodium Tablet PO 1 tab HS ROSALINDA Administration Ticagrelor 90 mg 09/18/24 09:00 09/22/24 19:57 Ticagrelor 90 Mg Tablet PO 90 mg Q12HR ROSALINDA Administration Radiology Results: ITS Impressions Chest X-Ray 09/22/24 14:08 Impression: 1: Stable interstitial infiltrates which may reflect mild edema, atypical pneumonia or chronic interstitial lung disease. Central Venous Line 09/22/24 19:21 IMPRESSION: 1. Fluoroscopy utilized during placement of a left internal jugular central venous tunneled dialysis catheter placement. See procedure note for further detail. Labs Labs: Laboratory Tests 09/22/24 04:39 09/22/24 04:39 Glucose 88 Calcium 8.4 Phosphorus 5.5 H Magnesium 2.3
--- NOTE | 2024-09-22 17:41 | PC.NURSE ---
pt went directly to dialysis following cath placement, blood administered with dialyisis
[2024-09-22] MEDS: EPOETIN ALFA-EPBX 20,000 UNITS/ML VIAL 20000 UNITS IV PUSH (17:48)
[2024-09-22] MEDS: SODIUM CHLORIDE 0.9% IV 1,000 ML 999 ML IV CONT (18:20)
[2024-09-22] MEDS: TICAGRELOR 90 MG TABLET PO (19:57)
[2024-09-22] MEDS: SENNA/DOCUSATE SODIUM TABLET 1 TAB PO (19:57)
[2024-09-22] MEDS: PANTOPRAZOLE SODIUM IV 40 MG VIAL IV PUSH (19:57)
[2024-09-23] VITALS (24 sets, daily range): BP systolic 87–132; BP diastolic 49–62; PULSE 64–86; RESP 12–18; TEMP 36.4–37; O2SAT 95–99
[2024-09-23 04:56] LABS: Hematocrit 29.0 % (42.0-52.0); Hemoglobin 9.3 g/dL (14.0-18.0); Immature Granulocyte Percent A 1.0 % (0-0.5); Lymphocytes Absolute Auto 0.84 K/mm3 (0.9-3.2); Mean Corpuscular HGB Conc 32.1 g/dl (32-36); Mean Corpuscular Hemoglobin 30.5 pg (26-34); Mean Corpuscular Volume 95.1 fl (80-100); Nucleated Red Blood Cells Absolute Auto 0.000 K/mm3 (0.0-0.012); Nucleated Red Blood Cells Perc 0.0 % (0.0-0.2); Platelet Count Result 211 k/mm3 (150-375); Red Blood Count 3.05 M/mm3 (4.6-6.20); White Blood Count 10.2 K/mm3 (4.5-10.0)
[2024-09-23 05:15] LABS: Alanine Aminotransferase 123 U/L (6-50); Albumin Level 3.0 g/dL (3.5-5.1); Alkaline Phosphatase 71 U/L (38-126); Anion Gap 10 mmol/L (4-12); Aspartate Amino Transferase 72 U/L (17-59); Bilirubin,Total 1.0 mg/dL (0.2-1.3); Blood Urea Nitrogen 39 mg/dL (9-20); Calcium 8.5 mg/dL (8.4-10.2); Carbon Dioxide 26 mmol/L (22-30); Chloride 100 mmol/L (98-107); Estimated CRCL calculation 10 ml/min; Estimated Glomerular Filt Rate 9; Glucose 84 mg/dL (65-110); Magnesium 2.2 mg/dL (1.6-2.3); Potassium 4.4 mmol/L (3.4-5.0); Sodium 136 mmol/L (137-145); Total Protein 5.6 g/dL (6.3-8.2)
--- NOTE | 2024-09-23 09:03 | PC.NURSE ---
pt to dialysis via bed
--- NOTE | 2024-09-23 09:55 | PCNWS ---
Weekly nutritional screen. Patient is tolerating current diet with adequate intake. No weight loss reported. No nutritional needs at this time.
[2024-09-23] MEDS: EPOETIN ALFA-EPBX 10,000 UNITS/ML VIAL 10000 UNITS IV PUSH (11:07)
--- NOTE | 2024-09-23 11:50 | PCOTNOTE ---
Patient out of the room at this time. Patient is in dialysis.
--- NOTE | 2024-09-23 12:10 | P.PNNP_ITS ---
Progress Note: A&P Assessment and Plan (1) Acute kidney injury: Code(s): N17.9 - Acute kidney failure, unspecified Status: Acute Assessment and Plan: * etiology not clear * significant decline in renal function/creatinine noted by labs on admission * suspect/possibly due to hypotension +/- cardiac event/NSTEMI * evaluation to date noted: * renal ultrasound in July 2024 was normal * unable to check urine studies since anuric * due to hyperkalemia, severe acidosis, and possible uremia, initiated on dialysis (09/16) * s/p temporary femoral line by Surgery * HD on 09/16, 09/17, 09/18, 09/19, and 09/22 * s/p tunneled HD catheter (09/22) * HD today since outpatient schedule to be Sat/Sat/Saturday * follow trend of electrolytes, acidosis, and clearance * follow trend of repeat labs and UOP to assess for potential recovery * outpatient dialysis schedule/unit being finalized ([facility]) (2) Chronic kidney disease: Code(s): N18.9 - Chronic kidney disease, unspecified Status: Chronic Assessment and Plan: * specifics are not clear... * according to patient, last testing ~ 1 month ago noted his kidney function at 40% * last creatinine here in March 2024 was 1.28mg/dl * attempted to obtain records from primary collision repairer (Dr. Robert Shultz) regarding baseline kidney function and what evaluation has been done * however, never received any records for review (3) NSTEMI (non-ST elevated myocardial infarction): Code(s): I21.4 - Non-ST elevation (NSTEMI) myocardial infarction Status: Acute Assessment and Plan: * elevated troponins and admission EKG noted * s/p heparin gtt * Cardiology following * s/p cardiac catheterization (09/17) with findings/interventions noted: * left main coronary artery is widely patent without any significant obstructive disease; prior stent in left main from 03/2024 is widely patent * LAD and the diagonal branches have mild luminal irregularities without any significant obstructive angiographic disease; prior stent in the proximal LAD from 03/2024 is widely patent * left circuflex with 99% instent restenoses (stent was placed in 03/2024) of ostial LCX; there is 60% calcified stenosis in mid LCX; distal LCX is very tiny and diffusely diseased; OM branches have minor luminal irregularities; following initial diagnostic image of the left system the flow in LCX decreased from RHODA 3 to RHODA 1 due to significant ostial LCX stenosis * proximal RCA has 30% stenosis; Right dominant circulation; distal RCA, RPDA, and RPLA appear diffusely thready without any focal stenosis due to spasm * status post successful IVUS guided PCI to 99% InStent restenoses of ostial LCX (culprit for patient's presentation) with 3.5 mm X 18 mm [employer] bee [place] JESÚS followed by post-dilation with a 3.5 mm X 15 mm NC balloon, KBI with 3.5 mm X 15 mm NC balloon in LCX and 3.5 mm X 15 mm NC balloon in LAD, and final POT with 4.0 mm X 15 mm NC balloon balloon * on ASA and ticagrelor * on statin * start BB when BP allows * continue medical management (4) Hyperkalemia: Code(s): E87.5 - Hyperkalemia Status: Acute Assessment and Plan: * 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 * noted on admission * resistant to medical therapy with ER interventions * follow trend of K+ (5) Metabolic acidosis: Code(s): E87.20 - Acidosis, unspecified Status: Acute Assessment and Plan: * improvement/corrected with dialysis * presumably due to severity of ANNA MARIE * lactic acid normal (6) Anemia: Qualifiers: Anemia type: due to chronic kidney disease Chronic kidney disease stage: unspecified stage Qualified Code(s): N18.9 - Chronic kidney disease, unspecified; D63.1 - Anemia in chronic kidney disease Code(s): D64.9 - Anemia, unspecified Status: Acute Assessment and Plan: * presumably related to ANNA MARIE +/- CKD and acute illness * PRBC transfusion per protocol * 3 units since admission * Epogen with HD * anemia studies with adequate iron stores; b12 and folate acceptable * seen by GI with recommendations noted * no plans for EGD at this time * follow trend of H/H (7) Hypertension: Code(s): I10 - Essential (primary) hypertension Status: Chronic Assessment and Plan: * soft since admission * was on low dose levophed gtt post cardiac catheterization * wean off 09/19 * holding midodrine * follow trend of hemodynamics (8) Transaminitis: Code(s): R74.01 - Elevation of levels of liver transaminase levels Status: Acute Assessment and Plan: * as noted by admission labs * presumably due cardiac event and subsequent hypoperfusion (?) * slow improvement noted * follow trend Will continue to follow. L Subjective Date/time seen: 09/23/24 12:10 Interval history: Follow-up for acute kidney injury/acute renal failure on chronic kidney disease (requiring COCOA PRESS OPERATOR/hemodialysis) Tolerating dialysis treatment at the time of my visit (seen on HD at 12:00pm); tolerated dialysis treatment yesterday afternoon after HD catheter placement as well; no apparent distress noted at this time; feels reasonable well when seen. Exam 2 Narrative: General: elderly but WD/WN male in NAD Heart: normal S1 and S2; no rub Lungs: clear to auscultation Abdomen: soft, nontender, nondistended, positive bowel sounds Extremities: no cyanosis or clubbing; no edema Skin: no rash Objective Data Vital Signs Vital Signs: Vital Signs Temp Pulse Resp BP Pulse Ox O2 Del Method 09/23/24 12:00 65 100/58 L 09/23/24 11:45 71 96/57 L 09/23/24 11:30 71 90/59 L 09/23/24 11:15 68 106/59 L 09/23/24 11:00 66 110/59 L 09/23/24 10:45 64 113/59 L 09/23/24 10:30 66 101/59 L 09/23/24 10:15 70 102/57 L 09/23/24 10:00 72 89/50 L 09/23/24 09:45 73 96/56 L 09/23/24 09:30 71 96/60 L 09/23/24 09:19 73 100/58 L 09/23/24 09:00 98.1 F 75 16 109/62 98 09/23/24 08:00 Room Air 09/23/24 04:49 97.6 F 72 12 132/52 L 95 09/23/24 04:00 75 09/23/24 00:00 77 09/22/24 20:31 98.5 F 78 12 120/53 L 95 09/22/24 20:00 77 09/22/24 17:57 98.1 F 79 18 116/64 09/22/24 17:51 86 111/70 09/22/24 17:30 79 109/70 09/22/24 17:15 75 111/64 09/22/24 17:00 74 109/69 09/22/24 16:45 74 99/67 L 09/22/24 16:30 75 99/67 L 09/22/24 16:21 75 119/65 09/22/24 16:21 97.9 F 75 18 119/65 09/22/24 16:15 72 106/65 Intake/Output Intake/Output: Intake & Output 09/20/24 09/21/24 09/22/24 09/23/24 23:59 23:59 23:59 23:59 Intake Total 1080 460 590 200 Output Total 0 25 1500 1100 Balance 8975 454 -950 -900 Meds/Results Medications: Active Medications Generic Name Dose Route Start Last Admin Trade Name Freq PRN Reason Stop Dose Admin Acetaminophen 650 mg 09/16/24 12:39 Acetaminophen 325 Mg Tablet PO Q4H PRN Mild Pain (1-3) Al Hydrox/Mg Hydrox/Simethicone 30 ml 09/16/24 12:39 Mag Hydrox/Al Hydrox/Simeth 30 Ml Udc PO Q6H PRN Indigestion Aspirin 81 mg 09/17/24 08:00 09/23/24 13:41 Aspirin 81 Mg Chewable Tablet PO 81 mg DAILY@0800 ROSALINDA Administration Epoetin Brandon-epbx 10,000 units 09/23/24 18:21 09/23/24 11:07 Epoetin [place]-Epbx 10,000 Units/Ml Vial IV PUSH 09/23/24 18:22 10,000 units ONCE ONE Administration Albumin Human 50 mls @ 999 mls/hr 09/16/24 11:49 Albutein IVPB 10/16/24 11:48 Q10M PRN HYPOTENSION Levothyroxine Sodium 100 mcg 09/17/24 09:00 09/23/24 13:41 Levothyroxine Sodium 100 Mcg Tablet PO 100 mcg DAILY ROSALINDA Administration Midodrine 5 mg 09/20/24 09:00 09/23/24 13:42 Midodrine Hcl 2.5 Mg Tablet PO Not Given TID ROSALINDA Nitroglycerin 0.4 mg 09/16/24 12:39 09/17/24 12:41 Nitroglycerin Sl 0.4 Mg Tablet SUBLINGUAL 0.4 mg Q5MIN PRN Administration Chest Pain Ondansetron HCl 4 mg 09/16/24 09:08 09/21/24 16:45 Ondansetron Inj 4 Mg/2 Ml Vial IV PUSH 4 mg Q4H PRN Administration Nausea Pantoprazole Sodium 40 mg 09/23/24 21:00 Pantoprazole 40 Mg Tablet PO Q12HR ROSALINDA Phenol 1 spray 09/19/24 13:54 Phenol/Sod Pheno [place] [facility]) MUCOUS MEM PRN PRN Sore Throat Polyethylene Glycol 17 gm 09/18/24 09:00 09/23/24 13:41 Polyethylene Glycol 3350 17 Gm Powd.Pack PO Not Given QAM ROSALINDA Rosuvastatin Calcium 10 mg 09/21/24 09:00 09/23/24 13:41 Rosuvastatin 10 Mg Tablet PO 10 mg DAILY ROSALINDA Administration Senna/Docusate Sodium 1 tab 09/18/24 21:00 09/22/24 19:57 Senna/Docusate Sodium Tablet PO 1 tab HS ROSALINDA Administration Ticagrelor 90 mg 09/18/24 09:00 09/23/24 13:41 Ticagrelor 90 Mg Tablet PO 90 mg Q12HR ROSALINDA Administration Radiology Results: ITS Impressions Chest X-Ray 09/22/24 14:08 Impression: 1: Stable interstitial infiltrates which may reflect mild edema, atypical pneumonia or chronic interstitial lung disease. Central Venous Line 09/22/24 19:21 IMPRESSION: 1. Fluoroscopy utilized during placement of a left internal jugular central venous tunneled dialysis catheter placement. See procedure note for further detail. Labs Labs: Laboratory Tests 09/23/24 04:04 09/23/24 04:04 Calcium 8.5 Magnesium 2.2 Total Bilirubin 1.0 AST 72 H ALT 123 H Alkaline Phosphatase 71 Total Protein 5.6 L Albumin 3.0 L
--- NOTE | 2024-09-23 12:52 | PC.NURSE ---
pt returned from dialysis, doing well
[2024-09-23] MEDS: MIDODRINE HCL 2.5 MG TABLET 5 MG PO ×2 (13:41→17:31)
[2024-09-23] MEDS: ASPIRIN 81 MG CHEWABLE TABLET PO (13:41)
[2024-09-23] MEDS: LEVOTHYROXINE SODIUM 100 MCG TABLET PO (13:41)
[2024-09-23] MEDS: TICAGRELOR 90 MG TABLET PO ×2 (13:41→20:46)
[2024-09-23] MEDS: ROSUVASTATIN 10 MG TABLET PO (13:41)
--- NOTE | 2024-09-23 14:52 | PCOTNOTE ---
Attempted to see Patient at this time. Patient currently sitting at the EOB. RN aware and states that's where he eats his meals. Patient declined participating in therapy services this afternoon, states he recently came back from dialysis, going to eat and then lay down to rest, check back tomorrow.
--- NOTE | 2024-09-23 16:39 | PM.IMPN ---
Progress Note: A&P Assessment and Plan (1) NSTEMI (non-ST elevated myocardial infarction): Code(s): I21.4 - Non-ST elevation (NSTEMI) myocardial infarction Status: Acute Assessment and Plan: 09/16: Patient presented with generalized weakness, chest pain. Was found to be in acute on chronic renal failure with creatinine of 20 and BUN of 161. -troponins peaked at 5.05 -09/17: status post PTCA/PCI with JESÚS x1 to left circumflex which had a 99% in stent restenoses of the ostial circumflex -continue aspirin, ticagrelor, rosuvastatin -patient did have cardiogenic shock on the cardiac cath table requiring Kyrie-Synephrine, started on Levophed which is being weaned, maintain MAP 60-65 mmHg per Cardiology -off Levophed since the evening of 09/18 -09/18: hemoglobin 7.3. Cardiology requested 1 unit of packed RBCs to to keep hemoglobin > 8.0 -cardiology following the patient 09/17/2024: Echocardiogram: Summary 1. Complete two-dimensional, color flow and Doppler transthoracic echocardiogram is performed. 2. This was a technically difficult study with poorly visualized acoustic windows and limited views. 3. There is normal biventricular size and systolic function. EF 60-65%, normal RV systolic function. 4. There is at least mild aortic stenosis. Due to limited windows and poorly visualized acoustic views, unable to quantify the degree of aortic stenosis in this study. (2) Acute on chronic renal failure: Qualifiers: Acute renal failure type: unspecified Chronic kidney disease stage: unspecified stage Qualified Code(s): N17.9 - Acute kidney failure, unspecified; N18.9 - Chronic kidney disease, unspecified Code(s): N17.9 - Acute kidney failure, unspecified; N18.9 - Chronic kidney disease, unspecified Status: Acute Assessment and Plan: Patient presented with generalized weakness, decreased appetite and p.o. intake. He did continue to take his blood pressure medications -creatinine was 20.08, BUN was 164 potassium was 6.0 on admission -could be related to low flow state due to hypotension, coronary artery disease, decreased p.o. intake, low flow state -09/16: Dialysis catheter was placed by surgery more right femoral vein -09/16: Nephrology was consulted and started on dialysis -09/17, 09/18: Dialyzed -patient is anuric, BUN creatinine trending down, -patient to get dialyzed again today after discussing with Nephrology -09/19: Temporary dialysis catheter was removed after discussion with Nephrology -09/19: Nephrology has consulted surgery to place tunneled dialysis catheter -09/20: midodrine 5 mg t.i.d. due to borderline blood pressure -tunneled dialysis catheter planned today by surgery (3) Anemia: Qualifiers: Anemia type: due to chronic kidney disease Chronic kidney disease stage: unspecified stage Qualified Code(s): N18.9 - Chronic kidney disease, unspecified; D63.1 - Anemia in chronic kidney disease Code(s): D64.9 - Anemia, unspecified Status: Acute Assessment and Plan: Patient anemic on admission, hemoglobin was 9.0 (hemoglobin in March was 12.1) -09/17: Transfused 1 unit of packed RBCs -09/18: Hemoglobin 7.3 cardiology requested 1 unit of packed RBCs to maintain Hb > 8.0 since he has coronary artery disease. Transfused 1 unit of packed RBCs -patient denies any regular NSAID use -denies any dark stools or coffee-ground emesis, hematemesis, hematochezia -history of removal of colonic polyp on 05/10/2022 you on a colonoscopy done here at [facility] -no iron deficiency on iron panel -vitamin B12 and folate were normal -stool for occult blood was positive -appreciate GI evaluation and recommendation -Protonix IV q.12 hours -09/19: Patient did have melanotic stool. -hemoglobin remained stable, discuss with GI, will continue to monitor H&H drifting downward. Currently at 7.2. With underlying coronary artery disease will transfuse 1 unit of PRBC. (4) Coronary artery disease: Code(s): I25.10 - Atherosclerotic heart disease of [place] coronary artery without angina pectoris Status: Acute Assessment and Plan: Patient has a history of coronary artery disease and stent x2 in March 2024 at [facility] (5) Hypertension: Code(s): I10 - Essential (primary) hypertension Status: Acute Assessment and Plan: History of essential hypertension, will hold antihypertensives. Recent vasopressor use, -blood pressure is currently stable -midodrine added (6) Transaminitis: Code(s): R74.01 - Elevation of levels of liver transaminase levels Status: Acute Assessment and Plan: Elevated LFTs likely related to coronary artery disease, renal function, hypotension, low-flow state -LFTs improving with better blood pressures and adequate perfusion -continue to monitor (7) Electrolyte imbalance: Code(s): E87.8 - Other disorders of electrolyte and fluid balance, not elsewhere classified Status: Acute Assessment and Plan: Hyperkalemia on admission has resolved with dialysis, continue to monitor Plan Chart reviewed. Patient had no new complaints. Patient had dialysis catheter placed yesterday and today he had his first dialysis, was able to walk with PT, stats feels tired, No chest pain or shortness of breath. No leg swelling. DVT prophylaxis: SCDs for now since patient is anemia Stress ulcer prophylaxis: Protonix IV q.12 hours Nutrition: Renal and heart healthy diet Code Status: Full code Subjective Date/time seen: 09/23/24 16:39 Interval history: Chart reviewed. Patient had no new complaints. Patient had dialysis catheter placed yesterday and today he had his first dialysis, was able to walk with PT, stats feels tired, No chest pain or shortness of breath. No leg swelling. Review of Systems Review of Systems: All systems reviewed & are unremarkable except as noted in HPI and below Exam Narrative: Patient is comfortable, NAD HEENT: eyes are clear and none icteric LUNGS:CTA HEART: RR S1S2 ABD: BS+, Soft and nontender Lower extremities: no edema SKIN: nonjaundiced Neuro: grossly intact. Objective Data Vital Signs Vital Signs: Vital Signs - 24 hr 09/22/24 16:45 09/22/24 17:00 09/22/24 17:15 Temperature Pulse Rate 74 74 75 Respiratory Rate Blood Pressure 99/67 L 109/69 111/64 Pulse Oximetry Oxygen Delivery 09/22/24 17:30 09/22/24 17:51 09/22/24 17:57 Temperature 36.7 C Pulse Rate 79 86 79 Respiratory Rate 18 Blood Pressure 109/70 111/70 116/64 Pulse Oximetry Oxygen Delivery 09/22/24 20:00 09/22/24 20:31 09/23/24 00:00 Temperature 36.9 C Pulse Rate 77 78 77 Respiratory Rate 12 Blood Pressure 120/53 L Pulse Oximetry 95 Oxygen Delivery 09/23/24 04:00 09/23/24 04:49 09/23/24 08:00 Temperature 36.4 C Pulse Rate 75 72 Respiratory Rate 12 Blood Pressure 132/52 L Pulse Oximetry 95 Oxygen Delivery Room Air 09/23/24 09:00 09/23/24 09:19 09/23/24 09:30 Temperature 36.7 C Pulse Rate 75 73 71 Respiratory Rate 16 Blood Pressure 109/62 100/58 L 96/60 L Pulse Oximetry 98 Oxygen Delivery 09/23/24 09:45 09/23/24 10:00 09/23/24 10:15 Temperature Pulse Rate 73 72 70 Respiratory Rate Blood Pressure 96/56 L 89/50 L 102/57 L Pulse Oximetry Oxygen Delivery 09/23/24 10:30 09/23/24 10:45 09/23/24 11:00 Temperature Pulse Rate 66 64 66 Respiratory Rate Blood Pressure 101/59 L 113/59 L 110/59 L Pulse Oximetry Oxygen Delivery 09/23/24 11:15 09/23/24 11:30 09/23/24 11:45 Temperature Pulse Rate 68 71 71 Respiratory Rate Blood Pressure 106/59 L 90/59 L 96/57 L Pulse Oximetry Oxygen Delivery 09/23/24 12:00 09/23/24 12:15 09/23/24 12:20 Temperature Pulse Rate 65 70 76 Respiratory Rate Blood Pressure 100/58 L 96/61 L 98/60 L Pulse Oximetry Oxygen Delivery 09/23/24 12:35 09/23/24 14:35 09/23/24 15:12 Temperature 36.4 C 36.6 C Pulse Rate 79 86 Respiratory Rate 16 18 Blood Pressure 104/59 L 87/49 L 98/61 L Pulse Oximetry 97 98 Oxygen Delivery Intake/Output Intake/Output: Intake & Output 09/20/24 09/21/24 09/22/24 09/23/24 23:59 23:59 23:59 23:59 Intake Total 1080 460 590 200 Output Total 0 25 1500 1100 Balance 7667 882 -910 900 Meds/Results Medications: Active Medications Generic Name Dose Route Start Last Admin Trade Name Freq PRN Reason Stop Dose Admin Acetaminophen 650 mg 09/16/24 12:39 Acetaminophen 325 Mg Tablet PO Q4H PRN Mild Pain (1-3) Al Hydrox/Mg Hydrox/Simethicone 30 ml 09/16/24 12:39 Mag Hydrox/Al Hydrox/Simeth 30 Ml Udc PO Q6H PRN Indigestion Aspirin 81 mg 09/17/24 08:00 09/23/24 13:41 Aspirin 81 Mg Chewable Tablet PO 81 mg DAILY@0800 ROSALINDA Administration Epoetin [place]-epbx 10,000 units 09/23/24 18:21 09/23/24 11:07 Epoetin [place]-Epbx 10,000 Units/Ml Vial IV PUSH 09/23/24 18:22 10,000 units ONCE ONE Administration Albumin Human 50 mls @ 999 mls/hr 09/16/24 11:49 Albutein IVPB 10/16/24 11:48 Q10M PRN HYPOTENSION Levothyroxine Sodium 100 mcg 09/17/24 09:00 09/23/24 13:41 Levothyroxine Sodium 100 Mcg Tablet PO 100 mcg DAILY [facility] Administration Midodrine 5 mg 09/20/24 09:00 09/23/24 13:42 Midodrine Hcl 2.5 Mg Tablet PO Not Given TID [facility] Nitroglycerin 0.4 mg 09/16/24 12:39 09/17/24 12:41 Nitroglycerin Sl 0.4 Mg Tablet SUBLINGUAL 0.4 mg Q5MIN PRN Administration Chest Pain Ondansetron HCl 4 mg 09/16/24 09:08 09/21/24 16:45 Ondansetron Inj 4 Mg/2 Ml Vial IV PUSH 4 mg Q4H PRN Administration Nausea Pantoprazole Sodium 40 mg 09/23/24 21:00 Pantoprazole 40 Mg Tablet PO Q12HR [facility] Phenol 1 spray 09/19/24 13:54 Phenol/Sod Pheno [place] (*[facility]) MUCOUS MEM PRN PRN Sore Throat Polyethylene Glycol 17 gm 09/18/24 09:00 09/23/24 13:41 Polyethylene Glycol 3350 17 Gm Powd.Pack PO Not Given QAM [facility] Rosuvastatin Calcium 10 mg 09/21/24 09:00 09/23/24 13:41 Rosuvastatin 10 Mg Tablet PO 10 mg DAILY ROSALINDA Administration Senna/Docusate Sodium 1 tab 09/18/24 21:00 09/22/24 19:57 Senna/Docusate Sodium Tablet PO 1 tab HS [facility] Administration Ticagrelor 90 mg 09/18/24 09:00 09/23/24 13:41 Ticagrelor 90 Mg Tablet PO 90 mg Q12HR ROSALINDA Administration Radiology Results: ITS Impressions Chest X-Ray 09/22/24 14:08 Impression: 1: Stable interstitial infiltrates which may reflect mild edema, atypical pneumonia or chronic interstitial lung disease. Central Venous Line 09/22/24 19:21 IMPRESSION: 1. Fluoroscopy utilized during placement of a left internal jugular central venous tunneled dialysis catheter placement. See procedure note for further detail. Labs Labs: Laboratory Results - last 24 hr 09/23/24 04:04 WBC 10.2 H RBC 3.05 L Hgb 9.3 L Hct 29.0 L MCV 95.1 MCH 30.5 MCHC 32.1 RDW 17.2 H Plt Count 211 MPV 10.6 H Immature Gran % (Auto) 1.0 H Neut % (Auto) 76.0 H Lymph % (Auto) 8.3 L [place] % (Auto) 8.7 H Eos % (Auto) 5.6 H Baso % (Auto) 0.4 Lymph # (Auto) 0.84 L [place] # (Auto) 0.9 H Eos # (Auto) 0.6 H Baso # (Auto) 0.0 Abs Immat Gran (auto) 0.10 H Absolute Neuts (auto) 7.7 H Absolute Nucleated RBC 0.000 Nucleated RBC % 0.0 Sodium 136 L Potassium 4.4 Chloride 100 Carbon Dioxide 26 Anion Gap 10 BUN 39 H D Creatinine 6.10 H Estim Creat Clear Calc 10 Estimated GFR 9 L Glucose 84 Calcium 8.5 Magnesium 2.2 Total Bilirubin 1.0 AST 72 H ALT 123 H Alkaline Phosphatase 71 Total Protein 5.6 L Albumin 3.0 L Quality VTE Prophylaxis VTE prophylaxis: mechanical ordered
[2024-09-23] MEDS: PANTOPRAZOLE 40 MG TABLET PO (20:46)
[2024-09-23] MEDS: SENNA/DOCUSATE SODIUM TABLET 1 TAB PO (20:46)
[2024-09-24] VITALS: BP 111/61; PULSE 65; PULSE 67; RESP 18; TEMP 36.6; O2SAT 97
[2024-09-24 04:00] VITALS: BP 109/60; PULSE 62; PULSE 71; RESP 18; TEMP 36.4; O2SAT 97
[2024-09-24 08:00] VITALS: PULSE 70
[2024-09-24] MEDS: ROSUVASTATIN 10 MG TABLET PO (08:19)
[2024-09-24] MEDS: ASPIRIN 81 MG CHEWABLE TABLET PO (08:19)
[2024-09-24] MEDS: LEVOTHYROXINE SODIUM 100 MCG TABLET PO (08:19)
[2024-09-24] MEDS: PANTOPRAZOLE 40 MG TABLET PO (08:19)
[2024-09-24] MEDS: TICAGRELOR 90 MG TABLET PO (08:19)
[2024-09-24] MEDS: MIDODRINE HCL 2.5 MG TABLET 5 MG PO ×2 (08:19→13:10)
[2024-09-24 12:00] VITALS: PULSE 73
--- NOTE | 2024-09-24 12:04 | PCPTNOTE ---
Attempted to see patient for PT, however patient declined due to anticipated discharge.
--- NOTE | 2024-09-24 12:10 | P.PNNP_ITS ---
Progress Note: A&P Assessment and Plan (1) Acute kidney injury: Code(s): N17.9 - Acute kidney failure, unspecified Status: Acute Assessment and Plan: * etiology not clear * significant decline in renal function/creatinine noted by labs on admission * suspect/possibly due to hypotension +/- cardiac event/NSTEMI * evaluation to date noted: * renal ultrasound in July 2024 was normal * unable to check urine studies since anuric * due to hyperkalemia, severe acidosis, and possible uremia, initiated on dialysis (09/16) * s/p temporary femoral line by Surgery * HD on 09/16, 09/17, 09/18, 09/19, and 09/22 * s/p tunneled HD catheter (09/22) * HD yesterday since outpatient schedule to be Sat/Sat/Saturday * follow trend of electrolytes, acidosis, and clearance * follow trend of repeat labs and UOP to assess for potential recovery * outpatient dialysis schedule/unit finalized ([facility] at // schedule) (2) Chronic kidney disease: Code(s): N18.9 - Chronic kidney disease, unspecified Status: Chronic Assessment and Plan: * specifics are not clear... * according to patient, last testing ~ 1 month ago noted his kidney function at 40% * last creatinine here in March 2024 was 1.28mg/dl * attempted to obtain records from primary visual coordinator (Dr. Robert Shultz) regarding baseline kidney function and what evaluation has been done * however, never received any records for review (3) NSTEMI (non-ST elevated myocardial infarction): Code(s): I21.4 - Non-ST elevation (NSTEMI) myocardial infarction Status: Acute Assessment and Plan: * elevated troponins and admission EKG noted * s/p heparin gtt * Cardiology following * s/p cardiac catheterization (09/17) with findings/interventions noted: * left main coronary artery is widely patent without any significant obstructive disease; prior stent in left main from 03/2024 is widely patent * LAD and the diagonal branches have mild luminal irregularities without any significant obstructive angiographic disease; prior stent in the proximal LAD from 03/2024 is widely patent * left circuflex with 99% instent restenoses (stent was placed in 03/2024) of ostial LCX; there is 60% calcified stenosis in mid LCX; distal LCX is very tiny and diffusely diseased; OM branches have minor luminal irregularities; following initial diagnostic image of the left system the flow in LCX decreased from RHODA 3 to RHODA 1 due to significant ostial LCX stenosis * proximal RCA has 30% stenosis; Right dominant circulation; distal RCA, RPDA, and RPLA appear diffusely thready without any focal stenosis due to spasm * status post successful IVUS guided PCI to 99% InStent restenoses of ostial LCX (culprit for patient's presentation) with 3.5 mm X 18 mm [employer] [place] JESÚS followed by post-dilation with a 3.5 mm X 15 mm NC balloon, KBI with 3.5 mm X 15 mm NC balloon in LCX and 3.5 mm X 15 mm NC balloon in LAD, and final POT with 4.0 mm X 15 mm NC balloon balloon * on ASA and ticagrelor * on statin * start BB when BP allows * continue medical management (4) Hyperkalemia: Code(s): E87.5 - Hyperkalemia Status: Acute Assessment and Plan: * resolved with LAB ASST/dialysis * noted on admission * resistant to medical therapy with ER interventions * follow trend of K+ (5) Metabolic acidosis: Code(s): E87.20 - Acidosis, unspecified Status: Acute Assessment and Plan: * improvement/corrected with dialysis * presumably due to severity of ANNA MARIE * lactic acid normal (6) Anemia: Qualifiers: Anemia type: due to chronic kidney disease Chronic kidney disease stage: unspecified stage Qualified Code(s): N18.9 - Chronic kidney disease, unspecified; D63.1 - Anemia in chronic kidney disease Code(s): D64.9 - Anemia, unspecified Status: Acute Assessment and Plan: * presumably related to ANNA MARIE +/- CKD and acute illness * PRBC transfusion per protocol * 3 units since admission * Epogen with HD * anemia studies with adequate iron stores; b12 and folate acceptable * seen by GI with recommendations noted * no plans for EGD at this time * follow trend of H/H (7) Hypertension: Code(s): I10 - Essential (primary) hypertension Status: Chronic Assessment and Plan: * soft since admission * was on low dose levophed gtt post cardiac catheterization * wean off 09/19 * on midodrine * follow trend of hemodynamics (8) Transaminitis: Code(s): R74.01 - Elevation of levels of liver transaminase levels Status: Acute Assessment and Plan: * as noted by admission labs * presumably due cardiac event and subsequent hypoperfusion (?) * slow improvement noted * follow trend Will continue to follow. L Subjective Date/time seen: 09/24/24 12:10 Interval history: Follow-up for acute kidney injury/acute renal failure on chronic kidney disease (requiring LAB ASST/hemodialysis) Tolerated dialysis treatment yesterday without any issues or problems; overall, feels reasonably well; no events overnight or earlier this morning; no apparent distress noted at the time of my visit. Exam 2 Narrative: General: elderly but WD/WN male in NAD Heart: normal S1 and S2; no rub Lungs: clear to auscultation Abdomen: soft, nontender, nondistended, positive bowel sounds Extremities: no cyanosis or clubbing; no edema Skin: no nodules Objective Data Vital Signs Vital Signs: Vital Signs Temp Pulse Resp BP Pulse Ox O2 Del Method 09/24/24 08:00 70 09/24/24 04:00 97.5 F L 71 18 109/60 97 09/24/24 04:00 62 09/24/24 00:00 97.8 F 65 18 111/61 97 09/24/24 00:00 67 09/23/24 20:35 Room Air 09/23/24 20:00 68 09/23/24 20:00 97.7 F 78 18 105/51 L 99 09/23/24 16:00 78 09/23/24 15:12 98/61 L 09/23/24 14:35 98 F 86 18 87/49 L 98 Intake/Output Intake/Output: Intake & Output 09/21/24 09/22/24 09/23/24 09/24/24 23:59 23:59 23:59 23:59 Intake Total 460 590 990 440 Output Total 25 1500 1100 Balance 435 -910 -110 440 Meds/Results Medications: Active Medications Generic Name Dose Route Start Last Admin Trade Name Freq PRN Reason Stop Dose Admin Acetaminophen 650 mg 09/16/24 12:39 Acetaminophen 325 Mg Tablet PO Q4H PRN Mild Pain (1-3) Al Hydrox/Mg Hydrox/Simethicone 30 ml 09/16/24 12:39 Mag Hydrox/Al Hydrox/Simeth 30 Ml Udc PO Q6H PRN Indigestion Aspirin 81 mg 09/17/24 08:00 09/24/24 08:19 Aspirin 81 Mg Chewable Tablet PO 81 mg DAILY@0800 ROSALINDA Administration Albumin Human 50 mls @ 999 mls/hr 09/16/24 11:49 Albutein IVPB 10/16/24 11:48 Q10M PRN HYPOTENSION Levothyroxine Sodium 100 mcg 09/17/24 09:00 09/24/24 08:19 Levothyroxine Sodium 100 Mcg Tablet PO 100 mcg DAILY ROSALINDA Administration Midodrine 5 mg 09/20/24 09:00 09/24/24 08:19 Midodrine Hcl 2.5 Mg Tablet PO 5 mg TID ROSALINDA Administration Nitroglycerin 0.4 mg 09/16/24 12:39 09/17/24 12:41 Nitroglycerin Sl 0.4 Mg Tablet SUBLINGUAL 0.4 mg Q5MIN PRN Administration Chest Pain Ondansetron HCl 4 mg 09/16/24 09:08 09/21/24 16:45 Ondansetron Inj 4 Mg/2 Ml Vial IV PUSH 4 mg Q4H PRN Administration Nausea Pantoprazole Sodium 40 mg 09/23/24 21:00 09/24/24 08:19 Pantoprazole 40 Mg Tablet PO 40 mg Q12HR ROSALINDA Administration Phenol 1 spray 09/19/24 13:54 Phenol/Sod Pheno [place] (*Bk) MUCOUS MEM PRN PRN Sore Throat Polyethylene Glycol 17 gm 09/18/24 09:00 09/24/24 08:19 Polyethylene Glycol 3350 17 Gm Powd.Pack PO 17 gm QAM ROSALINDA Administration Rosuvastatin Calcium 10 mg 09/21/24 09:00 09/24/24 08:19 Rosuvastatin 10 Mg Tablet PO 10 mg DAILY ROSALINDA Administration Senna/Docusate Sodium 1 tab 09/18/24 21:00 09/23/24 20:46 Senna/Docusate Sodium Tablet PO 1 tab HS ROSALINDA Administration Ticagrelor 90 mg 09/18/24 09:00 09/24/24 08:19 Ticagrelor 90 Mg Tablet PO 90 mg Q12HR ROSALINDA Administration Radiology Results: ITS Impressions Chest X-Ray 09/22/24 14:08 Impression: 1: Stable interstitial infiltrates which may reflect mild edema, atypical pneumonia or chronic interstitial lung disease. Central Venous Line 09/22/24 19:21 IMPRESSION: 1. Fluoroscopy utilized during placement of a left internal jugular central venous tunneled dialysis catheter placement. See procedure note for further detail. Labs Labs: Laboratory Tests 09/23/24 04:04 09/23/24 04:04
--- NOTE | 2024-09-24 12:55 | PM.DS ---
DS: Admitting Diagnosis Discharge Date 09/24/24 Admitting Diagnosis Weakness and fatigue DS: Discharge Diagnosis Discharge Diagnosis (1) NSTEMI (non-ST elevated myocardial infarction): Code(s): I21.4 - Non-ST elevation (NSTEMI) myocardial infarction Status: Acute Assessment and Plan: 09/16: Patient presented with generalized weakness, chest pain. Was found to be in acute on chronic renal failure with creatinine of 20 and BUN of 161. -troponins peaked at 5.05 -09/17: status post PTCA/PCI with JESÚS x1 to left circumflex which had a 99% in stent restenoses of the ostial circumflex -continue aspirin, ticagrelor, rosuvastatin -patient did have cardiogenic shock on the cardiac cath table requiring Kyrie-Synephrine, started on Levophed which is being weaned, maintain MAP 60-65 mmHg per Cardiology -off Levophed since the evening of 09/18 -09/18: hemoglobin 7.3. Cardiology requested 1 unit of packed RBCs to to keep hemoglobin > 8.0 -cardiology following the patient 09/17/2024: Echocardiogram: Summary 1. Complete two-dimensional, color flow and Doppler transthoracic echocardiogram is performed. 2. This was a technically difficult study with poorly visualized acoustic windows and limited views. 3. There is normal biventricular size and systolic function. EF 60-65%, normal RV systolic function. 4. There is at least mild aortic stenosis. Due to limited windows and poorly visualized acoustic views, unable to quantify the degree of aortic stenosis in this study. (2) Acute on chronic renal failure: Qualifiers: Acute renal failure type: unspecified Chronic kidney disease stage: unspecified stage Qualified Code(s): N17.9 - Acute kidney failure, unspecified; N18.9 - Chronic kidney disease, unspecified Code(s): N17.9 - Acute kidney failure, unspecified; N18.9 - Chronic kidney disease, unspecified Status: Acute Assessment and Plan: Patient presented with generalized weakness, decreased appetite and p.o. intake. He did continue to take his blood pressure medications -creatinine was 20.08, BUN was 164 potassium was 6.0 on admission -could be related to low flow state due to hypotension, coronary artery disease, decreased p.o. intake, low flow state -09/16: Dialysis catheter was placed by surgery more right femoral vein -09/16: Nephrology was consulted and started on dialysis -09/17, 09/18: Dialyzed -patient is anuric, BUN creatinine trending down, -patient to get dialyzed again today after discussing with Nephrology -09/19: Temporary dialysis catheter was removed after discussion with Nephrology -09/19: Nephrology has consulted surgery to place tunneled dialysis catheter -09/20: midodrine 5 mg t.i.d. due to borderline blood pressure -tunneled dialysis catheter planned today by surgery (3) Anemia: Qualifiers: Anemia type: due to chronic kidney disease Chronic kidney disease stage: unspecified stage Qualified Code(s): N18.9 - Chronic kidney disease, unspecified; D63.1 - Anemia in chronic kidney disease Code(s): D64.9 - Anemia, unspecified Status: Acute Assessment and Plan: Patient anemic on admission, hemoglobin was 9.0 (hemoglobin in March was 12.1) -09/17: Transfused 1 unit of packed RBCs -09/18: Hemoglobin 7.3 cardiology requested 1 unit of packed RBCs to maintain Hb > 8.0 since he has coronary artery disease. Transfused 1 unit of packed RBCs -patient denies any regular NSAID use -denies any dark stools or coffee-ground emesis, hematemesis, hematochezia -history of removal of colonic polyp on 05/10/2022 you on a colonoscopy done here at [facility] -no iron deficiency on iron panel -vitamin B12 and folate were normal -stool for occult blood was positive -appreciate GI evaluation and recommendation -Protonix IV q.12 hours -09/19: Patient did have melanotic stool. -hemoglobin remained stable, discuss with GI, will continue to monitor H&H drifting downward. Currently at 7.2. With underlying coronary artery disease will transfuse 1 unit of PRBC. (4) Coronary artery disease: Code(s): I25.10 - Atherosclerotic heart disease of [place] coronary artery without angina pectoris Status: Acute Assessment and Plan: Patient has a history of coronary artery disease and stent x2 in March 2024 at [facility] (5) Hypertension: Code(s): I10 - Essential (primary) hypertension Status: Chronic Assessment and Plan: History of essential hypertension, will hold antihypertensives. Recent vasopressor use, -blood pressure is currently stable -midodrine added (6) Transaminitis: Code(s): R74.01 - Elevation of levels of liver transaminase levels Status: Acute Assessment and Plan: Elevated LFTs likely related to coronary artery disease, renal function, hypotension, low-flow state -LFTs improving with better blood pressures and adequate perfusion -continue to monitor (7) Electrolyte imbalance: Code(s): E87.8 - Other disorders of electrolyte and fluid balance, not elsewhere classified Status: Acute Assessment and Plan: Hyperkalemia on admission has resolved with dialysis, continue to monitor Plan Chart reviewed. Patient had no new complaints. Patient had dialysis catheter placed yesterday and today he had his first dialysis, was able to walk with PT, stats feels tired, No chest pain or shortness of breath. No leg swelling. DVT prophylaxis: SCDs for now since patient is anemia Stress ulcer prophylaxis: Protonix IV q.12 hours Nutrition: Renal and heart healthy diet Code Status: Full code DS: Summary Hospital Course Hospital Course: 73-year-old male past medical history of right carotid artery stent, CAD, and hypertension presents the hospital with weakness and fatigue x1 week. Patient seen after dialysis and is extremely fatigued and falls asleep while talking. HPI limited due to patient being ill state we. Per the ED notes the patient was complaining of fatigue and weakness for the last several days and then had chest pain, so he presented to the hospital. 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 Time Spent with Patient Time attestation: Total time spent providing and/or coordinating discharge services: Exam Narrative: Patient is comfortable, NAD HEENT: eyes are clear and none icteric LUNGS:CTA HEART: RR S1S2 ABD: BS+, Soft and nontender Lower extremities: no edema SKIN: nonjaundiced Neuro: grossly intact. Discharge Plan Discharge Attending physician on discharge: Duane Jean Consulting providers: William Mcleod; Jakub Daly; Dinah Stallings; Elaine Bravo; Main Chapman; Abraham Durán; Ana Hackett; Brad Valladares; Rosa Isela Cortez; Cha Hughes; Saul Anderson; Kathryn Enciso; Álvaro Darby; Cheryl Mccarthy; Lonnie Reyes; Irena Ferrell; Rey Wheat; Ramos Wilks; Afshin Baptiste Discharging Clinician: Duane Jean Patient Disposition: Home with Home Health Service Activity: as tolerated Diet: renal and low sodium Discharge Instructions: Care Coordination: Patient to have [facility] for PT/OT eval and treat, and fpc. Their phone number is [phone] if you have any questions; they will contact you to schedule their first visit. Patient is set up with [facility] for outpatient dialysis. Your start date is Saturday09/25/24. You must arrive at 10:30 AM and bring your insurance card and ID card. Going forward, you will have dialysis on Mondays, Wednesdays, and Fridays. Your start time is 11:00 AM and [facility] asks you to arrive at 10:45 (after your first visit). 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 Patient Instructions: Antibiotic Form Patient Language: Swedish Stand Alone Forms: General Discharge Information Follow-up/Referrals: Maryanne,MD Yasmin [Primary Care Provider] - Jakub Daly MD [Physician] - Discharge Medications: New ticagrelor [Brilinta] 90 mg Tablet 90 mg PO Q12HR 30 Days Qty: 60 0RF polyethylene glycol 3350 [Miralax] 17 gram Powder In Packet 17 g PO QAM Qty: 30 0RF sennosides-docusate sodium [Senokot-S] 8.6-50 mg Tablet 1 tab PO HS Qty: 30 0RF pantoprazole 40 mg Tablet,Delayed Release (Dr/Ec) 40 mg PO Q12HR Qty: 60 0RF nitroglycerin [Nitrostat] 0.4 mg Tablet, Sublingual 0.4 mg sublingual Q5MIN PRN (Reason: Chest Pain) Qty: 26 0RF aspirin [Children's Aspirin] 81 mg Tablet,Chewable 81 mg PO DAILY@0800 Qty: 30 0RF midodrine 2.5 mg Tablet 5 mg PO TID Qty: 90 0RF Continued rosuvastatin 5 mg tablet 5 mg PO DAILY nifedipine 30 mg tablet extended release 24hr 30 mg PO DAILY levothyroxine [Synthroid] 100 mcg Tablet 100 mcg PO DAILY ascorbic acid (vitamin C) 500 mg Tablet 500 mg PO DAILY folic acid 1 mg Tablet 1 mg PO DAILY Date of admission: 09/16/24 13:21 Primary Care Provider: Maryanne,Yasmin Admitting Provider: Duane Jean Attending physician on admission: Duane Jean Condition: Stable
== END 2024-09-24 14:24 | disposition home health service (06) | DRG 673 ==
LOC: ANHED 09:41 → ANHIMU 10:03 → ANHICU 09-17 18:44 → ANH2MED 09-21 23:14
PROVIDERS: General Practice; Internal Medicine; Internal Medicine Interventional Cardiology; Internal Medicine Nephrology; Nurse Practitioner Gerontology; Surgery; Admitting Provider Family Medicine; Emergency Provider Emergency Medicine; PCP Internal Medicine; Visit Provider Family Medicine
PROC: 4A023N7 Measurement of Cardiac Sampling and Pressure, Left Heart, Percutaneous Approach (ICD-10-PCS; CPT 93452; principal; 2024-09-17 16:00)
PROC: 027034Z Dilation of Coronary Artery, One Artery with Drug-eluting Intraluminal Device, Percutaneous Approach (ICD-10-PCS; CPT 92928; 2024-09-17 16:00)
PROC: 027034Z Dilation of Coronary Artery, One Artery with Drug-eluting Intraluminal Device, Percutaneous Approach (ICD-10-PCS; 2024-09-17 16:00)
PROC: 0JH63XZ Insertion of Tunneled Vascular Access Device into Chest Subcutaneous Tissue and Fascia, Percutaneous Approach (ICD-10-PCS; CPT 36908; principal; 2024-09-22 12:30)
DX: N17.9 Acute kidney failure, unspecified (principal); I21.A9 Other myocardial infarction type; K72.00 Acute and subacute hepatic failure without coma; R57.0 Cardiogenic shock; I97.790 Other intraoperative cardiac functional disturbances during cardiac surgery; T82.855A Stenosis of coronary artery stent, initial encounter; E87.21 Acute metabolic acidosis; I25.10 Atherosclerotic heart disease of native coronary artery without angina pectoris; I10 Essential (primary) hypertension; E87.5 Hyperkalemia; I95.9 Hypotension, unspecified; R79.89 Other specified abnormal findings of blood chemistry; D72.829 Elevated white blood cell count, unspecified; R74.01 Elevation of levels of liver transaminase levels; D63.1 Anemia in chronic kidney disease; Z87.891 Personal history of nicotine dependence; Z95.828 Presence of other vascular implants and grafts; Z79.02 Long term (current) use of antithrombotics/antiplatelets; Z99.2 Dependence on renal dialysis
CPT/HCPCS: 36415; 36430; 71045; 71046; 77001; 80048; 80053; 80061; 82274; 82607; 82746; 82948; 83540; 83550; 83605; 83690; 83735; 83880; 84100; 84484; 85014; 85018; 85025; 85610; 85730; 86704; 86706; 86850; 86900; 86901; 86923; 87340; 87637; 92978; 93005; 93306; 93458; 96361; 96374; 96375; 96376; 97110; 97162; 97166; 97530; 99285; J0690; A9270; C1725; C1750; C1752; C1753; C1769; C1874; C1887; C1894; C9600; G0257; J0612; J1327; J1642; J1644; J1815; J2003; J2004; J2250; J2305; J2371; J2405; J2470; J3010; J7030; J7040; J7050; J7060; P9016; Q5105; Q5106

== ENCOUNTER 2024-10-07 22:55 | Inpatient (IN) | payer MEDICARE, SELFPAY ==
--- NOTE | ~2024-10-07 | XR_ITS ---
EXAMINATION: XR chest 1V portable Exam Date/Time: 10/07/2024 23:06 CDT HISTORY: cp Comparison: 09/22/2024. RESULT: Lines, tubes, and devices: Left IJ dialysis catheter, tip in the SVC, with a kink near the tip of th e catheter. Lungs and pleura: Mild diffuse reticular opacities. Streaky subsegmental right basilar opacities. Cardiomediastinal silhouette: Stable. Other: No acute osseous or upper abdominal finding. IMPRESSION: Left IJ dialysis catheter with a kink near its tip, correlate with function. Subsegmental right basilar atelectasis/consolidation. Mild interstitial edema versus chronic intersti tial change. Reviewed, dictated and finalized at location K. IMPRESSION: Left IJ dialysis catheter with a kink near its tip, correlate with function. Subsegmental right basilar atelectasis/consolidation. Mild interstitial edema v ersus chronic interstitial change.
--- OUTSIDE RECORDS SUMMARY | 2024-10-07 22:57 | XMS_ITS ---
Author Organization [facility] ([facility]) Address [facility] [address] [address] Care Team Providers Care Cook Chef Name Role Phone Unavailable Unavailable Unavailable Allergies, Adverse Reactions, Alerts Allergy Name Allergy Type Status Severity Reaction(s) Onset Date Inactive Date Treating Clinician Comments No Known Allergies Allergy Active 2024-09 13:50:1 1 Medications Ordered Medication Name Filled Medication Name Start Date Stop Date Current Medication? Ordering Clinician Indication Dosage Frequency Signature (SIG) Comments Components Mircera 10-04 14:57: 11 Yes [id number] Number of Repeats Allowed: Frequency: SELINA dosing, every two weeks Venofer 10-04 14:56: 49 Yes [id number] Number of Repeats Allowed: Frequency: One time a weekDosesO rdered: Maintenanc e Dose 50 Milligram Route: Intravenou s ONS [facility] 09-29 05:00: 00 Yes [id number] Number of Repeats Allowed: Frequency: Every Dialysis Treatment heparin sodium, porcine 09-25 19:34: 00 Yes [id number] Number of Repeats Allowed: Frequency: Every Dialysis TreatmentD osesOrdere d: Post CVC Instillati on 2200 Units 1:1000 Units/mLRo [place]: Intracathe terDosesOr dered: Post CVC Instillati on 2300 Units 1:1000 Units/mLRo [place]: Intracathe ter heparin sodium, porcine 09-25 19:33: 42 Yes [id number] Number of Repeats Allowed: Frequency: Every Dialysis TreatmentD osesOrdere d: Loading Dose 1000 Units 1:1000 Units/mLRo [place]: Intravenou s heparin sodium, porcine 09-25 19:33: 42 Yes [id number] Number of Repeats Allowed: Frequency: Every Dialysis TreatmentD osesOrdere d: Hourly Dose 500 Units/Hr 1:1000 Units/mLRo [place]: Intravenou s loperamide hydrochlori de 09-25 14:26: 46 Yes [id number] Number of Repeats Allowed: Frequency: Every 4 hours as needed ondansetron hydrochlori de 09-25 14:26: 25 Yes [id number] Number of Repeats Allowed: Frequency: Every 4 hours as needed Oxygen 09-25 14:25: 29 Yes [id number] Number of Repeats Allowed: Frequency: As needed Antacid Extra Strength 09-25 14:24: 51 Yes [id number] Number of Repeats Allowed: Frequency: Every 4 hours as needed acetaminoph en 09-25 14:24: 31 Yes [id number] Number of Repeats Allowed: Frequency: Every 4 hours as needed Problems This patient has no known problems. Procedures Procedure Date / Time Performed Performing Clinician Carolee ce Details Central Venous Catheter (CVC) 2024-09-21 05:00:00 Access Site Chest (Right) Access Use Start Date 2024-09-21 05:00:0 0 DIALYSIS TREATMENT INFORMATION Conventional Hemodialysis Date Type Treatment Start Date Treatment End Date Pre-Treatment Vitals Post-Treatment Vitals Weight Gain BFR DFR Actual UF Dialysis Access October 07, 2024 In-Ce nter Hemod ialys is Treat ment 2024-10-07 T11:52:39. 000Z 2024-10-07 T15:24:39. 000Z BP Sitting (Pre-Dialysis) 117/77 mmHg BP Sitting (Post-D ialysis ) 124/ 73 mmHg BP Standing (Pre-Dialysis) 151/72 mmHg BP Standing (P ost-Dialysis) 103/65 mmHg Sitting Heart Rate Pre-Dialysis 99 BPM Sitting Heart Rate Post-Dialysis 87 BPM Standing Heart Rate Pre-Dialysis 95 BPM Standing Heart Rate Post-Dialysis 112 BPM Temperature Pre-Dialysis 98.2 degF Temperature Post -Dialysis 97.4 degF October 05, 2024 In-Center Hemodialysis Treatment [id number]:51:06.000Z [id number]:28:07.000Z BP Sitting (Pre-Dialysis) 152/73 mmHg BP Sitting (Post-Dialysis) 135/65 mmHg Concurrent Access: falseCentral Venous Catheter (CVC) Chest (Right) Arterial BP Standing (Pre-Dialysis) 142/73 mmHg Sitting Heart Rate Post-Dialysis 75 BPM Sitting Heart Rate Pre-Dialysis 87 BPM Temperatu re Post-Dialysis 98 degF Standing Heart Rate Pre-Dialysis 79 BPM Temperature Pre-Dialysis 98 degF October 02, 2024 In-Center Hemodialysis Treatment [id number]:11:53.000Z [id number]:43:53.000Z BP Sitting (Pre-Dialysis) 123/58 mmHg BP Sitting (Post-Dialysis) 123/55 mmHg Concurrent Access: falseCentral Venous Catheter (CVC) Chest (Right) Arterial Sitting Heart Rate Pre-Dialysis 70 BPM Sitting H eart Rate Post-Dialysis 62 BPM Temperature Pre-Dialysis 98 degF Temperature Post -Dialysis 98 degF September 30, 2024 In-Center Hemodialysis Treatment [id number]:05:42.000Z [id number]:34:43.000Z BP Sitting (Pre-Dialysis) 110/59 mmHg BP Sitting (Post-Dialysis) 135/66 mmHg Concurrent Access: falseCentral Venous Catheter (CVC) Chest (Right) Arterial Sitting Heart Rate Pre-Dialysis 82 BPM BP Standi ng (Post-Dialysis) 128/77 mmHg Temperature Pre-Dialysis 98 degF Sitting Heart Ra te Post-Dialysis 72 BPM Standing Heart Rate Post-Krista lysis 72 BPM Temperature Post-Dialysis 98 degF September 28, 2024 In-Center Hemodialysis Treatment [id number]:33:02.000Z [id number]:02:02.000Z BP Sitting (Pre-Dialysis) 109/87 mmHg BP Sitting (Post-Dialysis) 118/67 mmHg Concurrent Access: falseCentral Venous Catheter (CVC) Chest (Right) Arterial Sitting Heart Rate Pre-Dialysis 80 BPM Sitting H eart Rate Post-Dialysis 77 BPM Temperature Pre-Dialysis 98.2 degF Temperature Post -Dialysis 97.2 degF September 25, 2024 In-Center Hemodialysis Treatment [id number]:56:22.000Z [id number]:27:22.000Z BP Sitting (Pre-Dialysis) 110/60 mmHg BP Sitting (Post-Dialysis) 113/55 mmHg Concurrent Access: falseCentral Venous Catheter (CVC) Chest (Right) Arterial BP Standing (Pre-Dialysis) 110/56 mmHg BP Standing (P ost-Dialysis) 119/57 mmHg Sitting Heart Rate Pre-Dialysis 80 BPM Sitting Heart Rate Post-Dialysis 66 BPM Standing Heart Rate Pre-Dialysis 78 BPM Standing Heart Rate Post-Dialysis 68 BPM Temperature Pre-Dialysis 97.4 degF Temperature Post -Dialysis 98 degF DIALYSIS ORDER Dialysis Procedure Orders Type of Dialysis Procedure Order Order Date/Time Observations In-Center Hemodialysis Treatment September Target Weight 77.5 kg Dialysate Flow Rate 500 mL/min Blood Flow Rate 400 mL/min Treatment Time 210 min(total) Max UF Rate 10 mL/kg/hr Base Sodium Dialysate Base Sodium 138 mE q/L dialysate_temp 36.5 C BiCarb Dialysate BiCarbonate 38 mEq/L Access Concurrent No Arterial Access Central Venous Carie ter (CVC) (Chest (Right)) Venous Access Central Venous Carie ter (CVC) (Chest (Right)) Dialyzer Nipro Elisio 15H 126 4 treatment_bath_code_id Dialysate Bath Potassium Potassium 3 mEq /L Dialysate Bath Calcium Calcium 2.5 mEq/L Results Adequacy Description Draw Date Result/Unit Status Ref Range Result Comments KT/V PRESCRIBED 2024-10-03 22:03:55 1.7 F Total Kt/V 2024-10-03 22:03:55 1.08 F stdKT/V Total 2024-10-03 22:03:55 N/A F nPCR 2024-10-03 22:03:55 0.48 G/KG/D F Dialyzer NIEVES 2024-10-03 22:03:55 1264 Calc F VM (KT/V MEAN VOL) 2024-10-03 22:03:55 51.9 F HEIGHT IN INCHES 2024-10-03 22:03:55 69 Inches F PRESCRIBED DAYS/WEEK 2024-10-03 22:03:55 3 Day/Wk F WEIGHT - POST DAY 1 2024-10-03 22:03:55 77.6 kg F spKt/V 2024-10-03 22:03:55 1.08 F LENGTH OF DIALYSIS 2024-10-03 22:03:55 211 min F Std Renal KT/V 2024-10-03 22:03:55 N/A F VT (KT/V TX VOL) 2024-10-03 22:03:55 51.9 L F TOTAL HOURS/WEEK DIALYSIS 2024-10-03 22:03:55 8 hrs F URR% 2024-10-03 22:03:55 62 % F WEIGHT - PRE DAY 1 2024-10-03 22:03:55 78.3 kg F BSA JENNIFER 2024-10-03 22:03:55 1.93 sq m F WEIGHT (KG) 2024-10-03 22:03:55 77.5 kg F TBW (Cain) 2024-10-03 22:03:55 40.32 Liters F Residual kt/v 2024-10-03 22:03:55 F Unable to calculate: Post BUN lab result is unknown BLOOD FLOW-QWB 2024-10-03 22:03:55 383 F eKt/V 2024-10-03 22:03:55 0.93 F CURRENT KRU 2024-10-03 22:03:55 F Unable to calculate: Post BUN lab result is unknown PATIENT AGE 2024-10-03 22:03:55 73 Years F stdKt/V (DIAL) 2024-10-03 22:03:55 N/A F DIALYZER FLOW-QD 2024-10-03 22:03:55 500 mL/min F AMPUTATE FACTOR 2024-10-03 22:03:55 0 F VM (KT/V MEAN VOL) 2024-10-03 22:03:55 51.9 F WEIGHT - POST DAY 1 2024-10-03 22:03:55 77.6 kg F KT/V PRESCRIBED 2024-10-03 22:03:55 1.7 F nPCR 2024-10-03 22:03:55 0.48 G/KG/D F stdKT/V Total 2024-10-03 22:03:55 N/A F Dialyzer NIEVES 2024-10-03 22:03:55 1264 Calc F Total Kt/V 2024-10-03 22:03:55 1.08 F HEIGHT IN INCHES 2024-10-03 22:03:55 69 Inches F PRESCRIBED DAYS/WEEK 2024-10-03 22:03:55 3 Day/Wk F TOTAL HOURS/WEEK DIALYSIS 2024-10-03 22:03:55 8 hrs F URR% 2024-10-03 22:03:55 62 % F Residual kt/v 2024-10-03 22:03:55 F Unable to calculate: Post BUN lab result is unknown DIALYZER FLOW-QD 2024-10-03 22:03:55 500 mL/min F Std Renal KT/V 2024-10-03 22:03:55 N/A F WEIGHT (KG) 2024-10-03 22:03:55 77.5 kg F BLOOD FLOW-QWB 2024-10-03 22:03:55 383 F CURRENT KRU 2024-10-03 22:03:55 F Unable to calculate: Post BUN lab result is unknown spKt/V 2024-10-03 22:03:55 1.08 F BSA JENNIFER 2024-10-03 22:03:55 1.93 sq m F WEIGHT - PRE DAY 1 2024-10-03 22:03:55 78.3 kg F eKt/V 2024-10-03 22:03:55 0.93 F TBW (Cain) 2024-10-03 22:03:55 40.32 Liters F VT (KT/V TX VOL) 2024-10-03 22:03:55 51.9 L F LENGTH OF DIALYSIS 2024-10-03 22:03:55 211 min F PATIENT AGE 2024-10-03 22:03:55 73 Years F AMPUTATE FACTOR 2024-10-03 22:03:55 0 F stdKt/V (DIAL) 2024-10-03 22:03:55 N/A F Urea nitrogen [Mass/volume] in Serum or Plasma --post dialysis 2024-10-03 22:02:15 8 mg/dL F 9.0-23.0 Urea nitrogen [Mass/volume] in Serum or Plasma --post dialysis 2024-10-03 22:02:15 8 mg/dL F 9.0-23.0 BUN/CREAT 2024-10-03 20:01:58 3.8 Calc F 6.9-32.9 BUN/CREAT 2024-10-03 20:01:58 3.8 Calc F 6.9-32.9 Creatinine [Mass/volume] in Serum or Plasma 2024-10-03 20:01:16 5.55 mg/dL F 0.7-1.3 Urea nitrogen [Mass/volume] in Serum or Plasma 2024-10-03 20:01:16 21 mg/dL F 9.0-23.0 Creatinine [Mass/volume] in Serum or Plasma 2024-10-03 20:01:16 5.55 mg/dL F 0.7-1.3 Urea nitrogen [Mass/volume] in Serum or Plasma 2024-10-03 20:01:16 21 mg/dL F 9.0-23.0 TBW (Cain) 2024-09-26 23:42:15 F Unable to calculate: Post BUN lab result is unknown URR% 2024-09-26 23:42:15 F Unable to calculate: Post BUN lab result is unknown Total Kt/V 2024-09-26 23:42:15 F Unable to calculate: Post BUN lab result is unknown WEIGHT (KG) 2024-09-26 23:42:15 77.5 kg F PRESCRIBED DAYS/WEEK 2024-09-26 23:42:15 3 Day/Wk F spKt/V 2024-09-26 23:42:15 F Unable to calculate: Post BUN lab result is unknown VM (KT/V MEAN VOL) 2024-09-26 23:42:15 F Unable to calculate: Post BUN lab result is unknown VT (KT/V TX VOL) 2024-09-26 23:42:15 F Unable to calculate: Post BUN lab result is unknown Residual kt/v 2024-09-26 23:42:15 F Unable to calculate: Post BUN lab result is unknown KT/V PRESCRIBED 2024-09-26 23:42:15 F Unable to calculate: Post BUN lab result is unknown WEIGHT - PRE DAY 1 2024-09-26 23:42:15 77.2 kg F HEIGHT IN INCHES 2024-09-26 23:42:15 69 Inches F stdKt/V (DIAL) 2024-09-26 23:42:15 F Unable to calculate: Post BUN lab result is unknown TOTAL HOURS/WEEK DIALYSIS 2024-09-26 23:42:15 1 hrs F WEIGHT - PRE DAY 1 2024-09-26 23:42:15 77.2 kg F HEIGHT IN INCHES 2024-09-26 23:42:15 69 Inches F WEIGHT (KG) 2024-09-26 23:42:15 77.5 kg F DIALYZER FLOW-QD 2024-09-26 23:42:15 500 mL/min F Dialyzer NIEVES 2024-09-26 23:42:15 1264 Calc F LENGTH OF DIALYSIS 2024-09-26 23:42:15 83 min F PATIENT AGE 2024-09-26 23:42:15 73 Years F BSA JENNIFER 2024-09-26 23:42:15 F Unable to calculate: Post BUN lab result is unknown WEIGHT - POST DAY 1 2024-09-26 23:42:15 77.2 kg F nPCR 2024-09-26 23:42:15 F Unable to calculate: Post BUN lab result is unknown AMPUTATE FACTOR 2024-09-26 23:42:15 0 F PRESCRIBED DAYS/WEEK 2024-09-26 23:42:15 3 Day/Wk F eKt/V 2024-09-26 23:42:15 F Unable to calculate: Post BUN lab result is unknown Std Renal KT/V 2024-09-26 23:42:15 F Unable to calculate: Post BUN lab result is unknown stdKT/V Total 2024-09-26 23:42:15 F Unable to calculate: Post BUN lab result is unknown BLOOD FLOW-QWB 2024-09-26 23:42:15 400 F CURRENT KRU 2024-09-26 23:42:15 F Unable to calculate: Post BUN lab result is unknown VT (KT/V TX VOL) 2024-09-26 23:42:15 F Unable to calculate: Post BUN lab result is unknown URR% 2024-09-26 23:42:15 F Unable to calculate: Post BUN lab result is unknown VM (KT/V MEAN VOL) 2024-09-26 23:42:15 F Unable to calculate: Post BUN lab result is unknown Residual kt/v 2024-09-26 23:42:15 F Unable to calculate: Post BUN lab result is unknown KT/V PRESCRIBED 2024-09-26 23:42:15 F Unable to calculate: Post BUN lab result is unknown Total Kt/V 2024-09-26 23:42:15 F Unable to calculate: Post BUN lab result is unknown TBW (Cain) 2024-09-26 23:42:15 F Unable to calculate: Post BUN lab result is unknown spKt/V 2024-09-26 23:42:15 F Unable to calculate: Post BUN lab result is unknown stdKt/V (DIAL) 2024-09-26 23:42:15 F Unable to calculate: Post BUN lab result is unknown TOTAL HOURS/WEEK DIALYSIS 2024-09-26 23:42:15 1 hrs F LENGTH OF DIALYSIS 2024-09-26 23:42:15 83 min F BLOOD FLOW-QWB 2024-09-26 23:42:15 400 F stdKT/V Total 2024-09-26 23:42:15 F Unable to calculate: Post BUN lab result is unknown AMPUTATE FACTOR 2024-09-26 23:42:15 0 F WEIGHT - POST DAY 1 2024-09-26 23:42:15 77.2 kg F CURRENT KRU 2024-09-26 23:42:15 F Unable to calculate: Post BUN lab result is unknown PATIENT AGE 2024-09-26 23:42:15 73 Years F BSA JENNIFER 2024-09-26 23:42:15 F Unable to calculate: Post BUN lab result is unknown Dialyzer NIEVES 2024-09-26 23:42:15 1264 Calc F DIALYZER FLOW-QD 2024-09-26 23:42:15 500 mL/min F nPCR 2024-09-26 23:42:15 F Unable to calculate: Post BUN lab result is unknown Std Renal KT/V 2024-09-26 23:42:15 F Unable to calculate: Post BUN lab result is unknown eKt/V 2024-09-26 23:42:15 F Unable to calculate: Post BUN lab result is unknown BUN/CREAT 2024-09-26 23:41:18 5.9 Calc F 6.7-37.1 BUN/CREAT 2024-09-26 23:41:18 5.9 Calc F 6.7-37.1 Urea nitrogen [Mass/volume] in Serum or Plasma 2024-09-26 23:40:16 45 mg/dL F 9.0-23.0 Creatinine [Mass/volume] in Serum or Plasma 2024-09-26 23:40:16 7.66 mg/dL F 0.7-1.3 Urea nitrogen [Mass/volume] in Serum or Plasma 2024-09-26 23:40:16 45 mg/dL F 9.0-23.0 Creatinine [Mass/volume] in Serum or Plasma 2024-09-26 23:40:16 7.66 mg/dL F 0.7-1.3 BUN/CREAT Creatinine [Mass/volume] in Serum or Plasma Urea nitrogen [Mass/volume] in Serum or Plasma Anemia Description Draw Date Result/Unit Status Ref Range Result Comments HCT CALC HGBX3 2024-10-03 22:33:50 25.8 % F 42.0-52.0 HCT CALC HGBX3 2024-10-03 22:33:50 25.8 % F 42.0-52.0 Hemoglobin [Mass/volume] in Blood 2024-10-03 22:33:08 8.6 g/dL F 14.0-18.0 Hemoglobin [Mass/volume] in Blood 2024-10-03 22:33:08 8.6 g/dL F 14.0-18.0 IRON SATURATION 2024-09-27 05:19:40 16 % F 21.0-49.0 TIBC 2024-09-27 05:19:40 245 ug/dL F 250.0-425.0 IRON SATURATION 2024-09-27 05:19:40 16 % F 21.0-49.0 TIBC 2024-09-27 05:19:40 245 ug/dL F 250.0-425.0 Iron binding capacity.unsaturated [Mass/volume] in Serum or Plasma 2024-09-27 05:17:43 207 ug/dL F 75.0-360.0 Iron [Mass/volume] in Serum or Plasma 2024-09-27 05:17:43 38 ug/dL F 65.0-175.0 Iron binding capacity.unsaturated [Mass/volume] in Serum or Plasma 2024-09-27 05:17:43 207 ug/dL F 75.0-360.0 Iron [Mass/volume] in Serum or Plasma 2024-09-27 05:17:43 38 ug/dL F 65.0-175.0 Ferritin [Mass/volume] in Serum or Plasma 2024-09-26 16:28:17 516 ng/mL F 22.0-322.0 Ferritin [Mass/volume] in Serum or Plasma 2024-09-26 16:28:17 516 ng/mL F 22.0-322.0 FluidBP Description Draw Date Result/Unit Status Ref Range Result Comments Sodium [Moles/volume] in Serum or Plasma 2024-10-04 02:18:05 145 mEq/L F 136.0-145.0 Sodium [Moles/volume] in Serum or Plasma 2024-10-04 02:18:05 145 mEq/L F 136.0-145.0 Sodium [Moles/volume] in Serum or Plasma 2024-09-27 05:17:43 139 mEq/L F 136.0-145.0 Sodium [Moles/volume] in Serum or Plasma 2024-09-27 05:17:43 139 mEq/L F 136.0-145.0 Sodium [Moles/volume] in Serum or Plasma General Description Draw Date Result/Unit Status Ref Range Result Comments Chloride [Moles/volume] in Serum or Plasma 2024-10-04 02:18:05 102 mEq/L F 98.0-107.0 Chloride [Moles/volume] in Serum or Plasma 2024-10-04 02:18:05 102 mEq/L F 98.0-107.0 Chloride [Moles/volume] in Serum or Plasma 2024-09-27 05:17:43 100 mEq/L F 98.0-107.0 Chloride [Moles/volume] in Serum or Plasma 2024-09-27 05:17:43 100 mEq/L F 98.0-107.0 Alanine aminotransferase [Enzymatic activity/volume] in Serum or Plasma 2024-09-26 23:40:16 51 U/L F 10.0-49.0 Alanine aminotransferase [Enzymatic activity/volume] in Serum or Plasma 2024-09-26 23:40:16 51 U/L F 10.0-49.0 Chloride [Moles/volume] in Serum or Plasma MineralBone Disorder Description Draw Date Result/Unit Status Ref Range Result Comments CA CORRECTED 2024-09-27 05:21:30 9.1 mg/dL F CA CORRECTED 2024-09-27 05:21:30 9.1 mg/dL F CA*PO4 CORRCTD 2024-09-27 05:19:40 42.8 Calc F 21.0-53.0 CA/PHOS PRODUCT 2024-09-27 05:19:40 40.9 Calc F 21.0-53.0 CA/PHOS PRODUCT 2024-09-27 05:19:40 40.9 Calc F 21.0-53.0 CA*PO4 CORRCTD 2024-09-27 05:19:40 42.8 Calc F 21.0-53.0 Calcium [Mass/volume] in Serum or Plasma 2024-09-27 05:17:43 8.7 mg/dL F 8.7-10.4 Calcium [Mass/volume] in Serum or Plasma 2024-09-27 05:17:43 8.7 mg/dL F 8.7-10.4 Phosphate [Mass/volume] in Serum or Plasma 2024-09-26 23:40:16 4.7 mg/dL F 2.4-5.1 Phosphate [Mass/volume] in Serum or Plasma 2024-09-26 23:40:16 4.7 mg/dL F 2.4-5.1 Parathyrin.intact [Mass/volume] in Serum or Plasma 2024-09-26 16:28:17 222 pg/mL F 18.0-80.0 Parathyrin.intact [Mass/volume] in Serum or Plasma 2024-09-26 16:28:17 222 pg/mL F 18.0-80.0 Nutrition Description Draw Date Result/Unit Status Ref Range Result Comments Potassium [Moles/volume] in Serum or Plasma 2024-10-04 02:18:05 3.4 mEq/L F 3.5-5.1 Potassium [Moles/volume] in Serum or Plasma 2024-10-04 02:18:05 3.4 mEq/L F 3.5-5.1 Bicarbonate [Moles/volume] in Serum or Plasma 2024-10-03 20:01:16 30 mEq/L F 20.0-31.0 Bicarbonate [Moles/volume] in Serum or Plasma 2024-10-03 20:01:16 30 mEq/L F 20.0-31.0 Potassium [Moles/volume] in Serum or Plasma 2024-09-27 05:17:43 4 mEq/L F 3.5-5.1 Potassium [Moles/volume] in Serum or Plasma 2024-09-27 05:17:43 4 mEq/L F 3.5-5.1 Albumin [Mass/volume] in Serum or Plasma by Bromocresol green (BCG) dye binding method 2024-09-26 23:40:16 3.5 g/dL F 3.2-4.8 Bicarbonate [Moles/volume] in Serum or Plasma 2024-09-26 23:40:16 26 mEq/L F 20.0-31.0 Albumin [Mass/volume] in Serum or Plasma by Bromocresol green (BCG) dye binding method 2024-09-26 23:40:16 3.5 g/dL F 3.2-4.8 Bicarbonate [Moles/volume] in Serum or Plasma 2024-09-26 23:40:16 26 mEq/L F 20.0-31.0 Potassium [Moles/volume] in Serum or Plasma Bicarbonate [Moles/volume] in Serum or Plasma Encounters No encounter information to report Plan of Treatment Planned Activity Provider Planned Date Details Commen ts Diagnostic Test Pending Yeison Jorge Lisa 2024-09-25 14:28:23 Albumin [Mass/volume] in Serum or Plasma by Bromocresol green (BCG) dye binding method [code = 33599-4] Future Scheduled Test Yeison Jorge Lisa 2024-10-09 05:00:00 Parathyrin.intact [Mass/volume] in Serum or Plasma [code = 2731-8] Diagnostic Test Pending Yeison Gonzalez 2024-09-25 14:32:17 Potassium [Moles/volume] in Serum or Plasma [code = 2823-3] Diagnostic Test Pending Yeison Gonzalez 2024-09-25 14:32:45 Alanine aminotransferase [Enzymatic activity/volume] in Serum or Plasma [code = 1742-6] Future Scheduled Test Lesleynona Laytonnorma 2024-10-11 05:00:00 Hemoglobin [Mass/volume] in Blood [code = 718-7] Diagnostic Test Pending Yeison Joepaty Gonzalez 2024-09-25 14:29:11 Creatinine [Mass/volume] in Serum or Plasma [code = 2160-0] Future Scheduled Test Octaviaargentina Laytonnoram 2024-10-09 06:14:23 Ferritin [Mass/volume] in Serum or Plasma [code = 2276-4] Diagnostic Test Pending Yeison Gonzalez 2024-09-25 14:32:34 Sodium [Moles/volume] in Serum or Plasma [code = 2951-2] Diagnostic Test Pending Jakub Daly [facility] 2024-09-26 05:00:00 In-Center Hemodialysis Treatment [code = UKT670]
--- OUTSIDE RECORDS SUMMARY | 2024-10-07 22:57 | XMS_ITS ---
Author Organization [facility] Address [address] [address] [place] [address] Care Team Providers Care Production Officer Name Role Phone Carrington Robert Unavailable [phone] Problems Problem Type SNOMED Code ICD Code Onset Dates Problem Status W/U Status Risk Notes Problem Chronic kidney disease, stage 4 (severe) (N18.4) Active confirmed Encounters Encounter Location Date Provider Diagnosis [place] [facility] [address] [facility] [address] [place] [address] 09/02/2024 Robert Shultz Chronic kidney disea se, [...] * MALU MENDIOLADOB: 0 (73 yo M)Acc No.[id number]:09/02/2024 Patient: MALU JIMENES Provider: Regis SIDDIQUI MD, F.Carlos.C.P, F.A.S.N. :1950 A ge:73 Y S ex:Male Date:09/02/2024 Address:[address] [place] [address] Subjective: * Chief Complaints: Objective: Assessment: * [...] Plan: * Billing Information: * Visit Code: 29409 Office Visit, Est Pt., Level 5. * Procedure Codes: * Electronic signature of Gaudencio Shultz MD on 10/07/2024 at 10:57 PM CDT Sign off status: Pending * Provider: Regis SIDDIQUI MD, F.Carlos.C.P, F.A.S.N. Date: 0 09/02/2024 Generated for Printing/Faxing/eTransmitting on: 0 10/07/2024 10:57 PM CDT
--- OUTSIDE RECORDS SUMMARY | 2024-10-07 22:57 | XMS_ITS | Clinical Summary ---
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 Encounters Date Type Department Care Team Description 09/24/2024 Orders Only [facility] Medical [facility] Cardiology [address] [place] [address] Ana Hackett NP 09/22/2024 Orders Only [facility] Medical [facility] Cardiology [address] [place] [address] Dinah Stallings MD from Last 3 Months Immunizations Immunization Administration Dates Next Due Influenza, Unspecified 12/09/2016 AdRocket (J&J) SARS-CoV-2 Vaccination 08/25/2020 Surgical History Surgery [...] on file Legal Sex Male 7:30 PM MATERIALS COORDINATOR Gender Identity Not on file Sexual Orientation Not on file 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 Not on file Not on file Obstetrics History Last Filed Vital Signs Vital Sign Reading Time Taken Comments Blood Pressure 101/57 04/11/2024 8:59 AM MATERIALS COORDINATOR Pulse 65 04/11/2024 8:59 AM MATERIALS COORDINATOR Temperature 37.1 C (98.8 F) 04/11/2024 8:59 AM MATERIALS COORDINATOR Respiratory Rate 17 04/11/2024 8:59 AM MATERIALS COORDINATOR Oxygen Saturation 96% 04/11/2024 8:59 AM MATERIALS COORDINATOR Inhaled Oxygen Concentration - - Weight 80.3 kg (177 lb) 04/10/2024 3:30 PM MATERIALS COORDINATOR Height 177.8 cm (5' 10) 04/10/2024 3:30 PM MATERIALS COORDINATOR Body Mass Index 25.4 04/10/2024 3:30 PM MATERIALS COORDINATOR Plan of Treatment Health Maintenance Due Date Last Done Comments Colon Cancer Screening-Colonoscopy 1950 Depression Screening 1950 DTaP/Tdap/Td Vaccine (1 - Tdap) 1960 Hepatitis B Screening 10/28/1967 Pneumococcal vaccine 65+ (1 of 2 - PCV) 1968 Zoster Vaccine (1 of 2) 10/28/1999 Abdominal Aortic Aneurysm (AAA) Screen 2014 Well Visit 65+ 2014 Covid-19 Vaccine ( season) 2023, 08/25/2020 Influenza Vaccine (#1) 2024 01/27/2024, 2016 Fall Risk Assessment 04/11/2025 04/11/2024 Hepatitis C Screening Completed 03/31/2018 Medical Devices Implanted Type Area Legal Billing Specialist Device Identifier Shelf Expiration Date Model / Serial / Lot [facility] Vas Surgery 4.0 X 30mm [employer] [place] Rx Coronary Stent [id number] - [id number] Implanted:Qty: 1 on 07/25/2023 by Dave Parker MD at [facility] Surgery 03/30/2026 [id number] / / [id number] Protagen Stent Drug Eluting S Megatron Us Mr 5.00x8mm [id number] - [id number] Implanted:Qty: 1 on 07/25/2023 by Dave Parker MD at [facility] Protagen 10/30/2024 [id number] / / [id number] TerPollen Angio-Seal Vip 6fr Closere Device [id number] - [id number] Implanted:Qty: 1 on 07/25/2023 by Dave Parker MD at [facility] [employer]ollen [id number] / / Piedra Vascular Xact 8-10mm 40mm Self Expand Closed Cell Flare End Freestyle [id number] - [id number] Implanted:Qty: 1 on 04/10/2024 by Varun Zarate MD at [facility] [employer] 09/07/2025 [id number] / / [id number] TerumVyykn Medical [place] Angio-Seal Vip 6fr Closere Device [id number] - [id number] Implanted:Qty: 1 on 04/10/2024 by Varun Zarate MD at [facility] [employer] Sulma 09/17/2024 [id number] / / Procedures Procedure Name Priority Date/Time Associated Diagnosis Comments CARDIOLOGY DOCUMENT SCAN Routine 09/22/2024 12:54 PM CDT CARDIOLOGY DOCUMENT SCAN Routine 09/21/2024 12:50 PM CDT CARDIOLOGY DOCUMENT SCAN Routine 09/21/2024 10:32 AM CDT CARDIOLOGY DOCUMENT SCAN Routine 09/20/2024 2:56 PM CDT CARDIOLOGY DOCUMENT SCAN Routine 09/19/2024 2:51 PM CDT CARDIOLOGY DOCUMENT SCAN Routine 09/18/2024 2:47 PM CDT CARDIOLOGY DOCUMENT SCAN Routine 09/17/2024 2:45 PM CDT CARDIOLOGY DOCUMENT SCAN Routine 09/17/2024 2:40 PM CDT CARDIOLOGY DOCUMENT SCAN Routine 09/16/2024 2:18 PM CDT HEPATITIS C ANTIBODY Routine 03/31/2018 3:12 PM MATERIALS COORDINATOR Porphyria cutanea tarda (HCC) from Last 3 Months or Most Recently Relevant to Health Maintenance Results * Cardiology Document Scan (09/22/2024 12:54 PM CDT) Anatomical Region Laterality Modality Other Ana Hackett NP CV CARDIAC SERVICES PROCEDUR ES Final Result * Cardiology Document Scan (09/21/2024 12:50 PM CDT) Anatomical Region Laterality Modality Other Ana Hackett NP CV CARDIAC SERVICES PROCEDUR ES Final Result * Cardiology Document Scan (09/21/2024 10:32 AM CDT) Anatomical Region Laterality Modality Other Ana Hackett NP CV CARDIAC SERVICES PROCEDUR ES Final Result * Cardiology Document Scan (09/20/2024 2:56 PM CDT) Anatomical Region Laterality Modality Other Saul Anderson MD CV CARDIAC SERVICES PROCE DURES Final Result * Cardiology Document Scan (09/19/2024 2:51 PM CDT) Anatomical Region Laterality Modality Other Saul Anderson MD CV CARDIAC SERVICES PROCE DURES Final Result * Cardiology Document Scan (09/18/2024 2:47 PM CDT) Anatomical Region Laterality Modality Other Dinah Stallings MD CV CARDIAC SERVICES PROCEDU RES Final Result * Cardiology Document Scan (09/17/2024 2:45 PM CDT) Anatomical Region Laterality Modality Other Dinah Stallings MD CV CARDIAC SERVICES PROCEDU RES Final Result * Cardiology Document Scan (09/17/2024 2:40 PM CDT) Anatomical Region Laterality Modality Other Dinah Stallings MD CV CARDIAC SERVICES PROCEDU RES Final Result * Cardiology Document Scan (09/16/2024 2:18 PM CDT) Anatomical Region Laterality Modality Other Dinah Stallings MD CV CARDIAC SERVICES PROCEDU RES Final Result * Hepatitis C antibody (03/31/2018 3:12 PM MATERIALS COORDINATOR) Hep C Ab <0.1 0.0 - 0.9 s/co ratio [facility] - 01 Comment: Negative: < 0.8 Indeterminate: 0.8 - 0.9 Positive: > 0.9 The CDC recommends that a positive HCV antibody result be followed up with a HCV Nucleic Acid Amplification test (618830). Blood specimen (specimen) 03/31/2018 3:12 PM MATERIALS COORDINATOR 03/31/2018 Narrative [facility] - 04/01/2018 8:31 AM MATERIALS COORDINATOR Performed at: - [facility] [id number] Shredder Tender Peat: Mihir Paul PhD, Phone: [phone] Bran العراقي DO LAB MICROBIOLOGY - GENERAL O RDERABLES Final Result [facility] - 01 from Last 3 Months or Most Recently Relevant to Health Maintenance Insurance HUMANA CHOICE MEDICARE PPO HUMANA MEDICARE HMO Advance Directives For more information, please contact: [phone] * Full Code (Latest Code Status on File) Date Activated Date Inactivated Comments 04/10/2024 11:03 AM 04/11/2024 7:10 PM * Full Code Date Activated Date Inactivated Comments 07/25/2023 10:42 AM 07/26/2023 6:13 PM Care Teams Crisis Nurse Relationship Specialty Start Date End Date Rey Heck MD PCP - General Internal Medicine 01/16/18 Randy Bravo MD Dermatology 01/20/18 Bran العراقي DO [address] [place] [address] Medical Oncologist/Hematologis t Hematology and Oncology 06/11/18 Dave Parker MD [address] [place] [address] Consulting Physician Cardiovascular Disease 07/26/23
--- OUTSIDE RECORDS SUMMARY | 2024-10-07 22:57 | XMS_ITS | Clinical Summary ---
Author Organization [facility] Address [address] [place] [address] Care Team Providers Care Psychiatric Nursing Aide Name Role Phone Unavailable Primary Care Provider Unavailabl e Source Comments [facility],non-owned Affiliates and Associated Physician Practices is amultiple site organization consisting of ambulatory clinics and hospital sitesin [place], [place], [place] and [place]. This disclosure is being madepursuant to the Care Everywhere program and may not contain all information available regarding this patient. Last updated 17.[facility] [employer] Social History Tobacco Use Types Packs/Day Years Used Date Smoking Tobacco: Never Assessed Sex and Gender Information Value Date Recorded Sex Assigned at Not on file Legal Sex Male 4:35 PM BACTERIOLOGY TECHNICIAN Gender Identity Not on file Sexual [...] VACCINE (1 of 2) 10/28/1999 COVID-19 VACCINE (3 - 2023-2 5 season) 2023 03/02/2021, 08/25/2020 DEPRESSION SCREENING 03/11/2024 MEDICARE AWV CALENDAR YEAR 2024 Respiratory Syncytial Virus (RSV) Vaccine Pt: or over 60 yrs (1 - 1-dose 75+ series) 2024 INFLUENZA VACCINE (#1) 2024 4, 12/09/2016 HEPATITIS B VACCINE Aged Out No longe r eligible based on patient's age to complete this topic HIB VACCINE Aged Out No longer eligi ble based on patient's age to complete this topic HPV VACCINE Aged Out No longer eligi ble based on patient's age to complete this topic MENINGOCOCCAL (Group B) VACCINE SHARED DECISION-MAKING Aged Out No longer eligible based on patient's age to complete this topic MENINGOCOCCAL GROUPS A/C/Y/W VACCINE Aged Out No longer eligible b ased on patient's age to complete this topic Insurance HUMANA MEDICARE ADV HMO & PPO
--- OUTSIDE RECORDS SUMMARY | 2024-10-07 22:57 | XMS_ITS | Encounter Summary ---
Author Organization [facility] Address [address] [place] [address] Care Team Providers Care Tub Rider Name Role Phone Unavailable Primary Care Provider Unavailabl e Encounter Details Date Type Department Care Team (Late st Contact Info) Description 04/30/2023 Lab Requisition [facility] - DermPath Lab [address] [place] [phone] Randy Bravo MD [facility] DERMATOLOGY [address] [place] [phone] Neoplasm of uncertain behavior of skin Social History Tobacco Use Types Packs/Day Years Used Date Smoking Tobacco: Never Assessed Sex and Gender Information Value Date Recorded Sex Assigned at Not on file Legal Sex Male 4:35 PM RADIO COMMUNICATIONS MECHANICIAN Gender Identity Not on file Sexual Orientation Not on file documented as of this encounter Plan of Treatment Not on file documented as of this encounter Procedures Procedure Name Priority Date/Time Associated Diagnosis Comments DERMATOPATHOLOGY Routine 04/30/2023 3:33 AM RADIO COMMUNICATIONS MECHANICIAN Neoplasm of uncertain behavior of skin documented in this encounter Results * DERMATOPATHOLOGY (04/30/2023 3:33 AM RADIO COMMUNICATIONS MECHANICIAN) Case Report Dermatopathology Report Case: [id number] Authorizing Provider: Randy Bravo MD Collected: 04/30/2023 03:33 AM Ordering Location: [facility] DermPath Lab Received: 05/01/2023 01:16 PM Pathologist: Latrice Thibodeaux MD Specimens: A) - Skin, left hand B) - Skin, left ear 2:31 PM RADIO COMMUNICATIONS MECHANICIAN DERMATOPATHOLOGY LABORATORY Final Diagnosis Specimen A. SKIN, left hand: SUPERFICIAL (FOCALLY INVASIVE) SQUAMOUS CELL CARCINOMA ARISING IN AN ACTINIC KERATOSIS (C44.629) Specimen B. SKIN, left ear: BASAL CELL CARCINOMA, FRAGMENTS OF (C44.219) (see microscopic description) 2:31 PM [facility] DERMATOPATHOLOGY LABORATORY at [address] RADIO COMMUNICATIONS MECHANICIAN Clinical History A: Squamous Cell Carcinoma B: Basal Cell Carcinoma 2:31 PM [facility] DERMATOPATHOLOGY LABORATORY Gross Description Specimen [...] measuring 2x1x1 mm. Jar 0. 2:31 PM [facility] DERMATOPATHOLOGY LABORATORY Microscopic Description Specimen [...] sections were obtained and reviewed. 2:31 PM [facility] DERMATOPATHOLOGY LABORATORY Disclaimer An external [...] purposes. Billing Codes Specimen Charges Stain Charges 09982 10693 1 1 46331 1 2:31 PM [facility] DERMATOPATHOLOGY LABORATORY Embedded Images 2:31 PM [facility] DERMATOPATHOLOGY LABORATORY Pathology/Cytology TISSUE SPECIMEN FROM SKIN / Unknown 04/30/2023 3:33 AM RADIO COMMUNICATIONS MECHANICIAN 05/01/2023 1:16 PM RADIO COMMUNICATIONS MECHANICIAN Miscellaneous samples (specimen) TISSUE SPECIMEN FROM SKIN / Unknown 04/30/2023 3:33 AM RADIO COMMUNICATIONS MECHANICIAN 05/01/2023 1:29 PM RADIO COMMUNICATIONS MECHANICIAN us Randy Bravo MD LAB - PATHOLOGY/CYTOLOGY GIBRAN MARMOLEJO Final Result DERMATOPATHOLOGY LABORATORY [facility] - Department of Dermatology [facility] Medicine [address] [place] [address], [address] [phone] documented in this encounter Visit Diagnoses Diagnosis Neoplasm of uncertain behavior of skin documented in this encounter
--- OUTSIDE RECORDS SUMMARY | 2024-10-07 22:57 | XMS_ITS | Clinical Summary ---
Author Organization [facility] Montelongo Address [address] [place] [address] Care Team Providers Care Dance Coach Name Role Phone Yasmin Madden MD Primary [...] Comments Blood Pressure 143/80 04/01/2024 1:17 PM DOUBLE SURFACE OPERATOR Pulse 76 04/01/2024 1:15 PM DOUBLE SURFACE OPERATOR Temperature 36.7 C (98.1 F) 04/01/2024 1:15 PM DOUBLE SURFACE OPERATOR Respiratory Rate 15 04/01/2024 1:15 PM DOUBLE SURFACE OPERATOR Oxygen Saturation 97% 04/01/2024 1:15 PM DOUBLE SURFACE OPERATOR Inhaled Oxygen Concentration - - Weight 81.6 kg (179 lb 12.8 oz) 04/01/2024 1:15 PM DOUBLE SURFACE OPERATOR Height 175.3 cm (5' 9) 06/27/2023 10:0 1 AM CDT Body Mass Index 26.55 06/27/2023 10:01 AM CDT Plan of Treatment Health Maintenance Due Date Last Done Comments DTAP/TDAP/TD VACCINES (1 - Tdap) 1968 COLORECTAL SCREENING 1994 Colorectal Cancer Screening 1994 FIT-DNA Q 3 years 1994 FIT/FOBT Q 1 year 1994 Flex Sig/CT Colonography Q 5 years 1994 ZOSTER VACCINE (1 of 2) 10/28/1999 RSV VACCINE (60+ or ) (1 - Risk 60-74 years 1-dose series) 2009 COVID-19 Vaccine ( - season) 2023, 08/25/2020 INFLUENZA VACCINE (#1) 2024 PNEUMOCOCCAL VACCINE 50+ YEARS Completed 05/06/2023 Abdominal Aortic Aneurysm (AAA) Screening Completed 05/15/2023 Insurance HUMANA GOLD PLUS O MCR Care Teams Dance Coach Relationship Specialty Start Date End Date Yasmin Madden MD PCP - General Internal Medicine 06/27/23
--- OUTSIDE RECORDS SUMMARY | 2024-10-07 22:57 | XMS_ITS | Encounter Summary ---
Author Organization [facility] Address [address] [facility] [place] [address] Care Team Providers Care Cadastral Surveyor Name Role Phone Unavailable Primary Care Provider Unavailabl e Encounter Details Date Type Department Care Team (Late st Contact Info) Description 06/17/2024 Lab Requisition [facility] - DermPath Lab [address] [place] [phone] Randy Bravo MD [facility] DERMATOLOGY [address] [place] [phone] Neoplasm of uncertain behavior of skin Social History Tobacco Use Types Packs/Day Years Used Date Smoking Tobacco: Never Assessed Sex and Gender Information Value Date Recorded Sex Assigned at Not on file Legal Sex Male 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 Gender Identity Not on file Sexual Orientation Not on file documented as of this encounter Plan of Treatment Not on file documented as of this encounter Procedures Procedure Name Priority Date/Time Associated Diagnosis Comments DERMATOPATHOLOGY Routine 06/17/2024 3:33 AM CDT Neoplasm of uncertain behavior of skin documented in this encounter Results * DERMATOPATHOLOGY (06/17/2024 3:33 AM CDT) Case Report Dermatopathology Report Case: [id number] Authorizing Provider: Randy Bravo MD Collected: 06/17/2024 03:33 AM Ordering Location: [facility] - Received: 06/18/2024 [...] characteristic determined by the Dermatopathology Laboratory at [facility], directed by Dr. Hoa Zayas. These tests need not be, and therefore are not, approved by the [place] Food and Drug Administration. The tests are used for clinical purposes. Billing Codes Specimen Charges Stain Charges 93815 1 1:05 PM CDT DERMATOPATHOLOGY LABORATORY Embedded Images 1:05 PM CDT DERMATOPATHOLOGY LABORATORY Pathology/Cytolo gy TISSUE SPECIMEN FROM SKIN / Unknown 06/17/2024 3:33 AM CDT 06/18/2024 12:37 PM CDT Randy Bravo MD LAB - PATHOLOGY/CYTOLOGY ORDE FRANCIE Final Result DERMATOPATHOLOGY LABORATORY [facility] - Department of Dermatology [address], [address] Floor [address] [phone] documented in this encounter Visit Diagnoses Diagnosis Neoplasm of uncertain behavior of skin documented in this encounter
--- OUTSIDE RECORDS SUMMARY | 2024-10-07 22:57 | XMS_ITS | Referral Summary ---
Author Organization [facility] Address [facility] [place] [address] Care Team Providers Care Package Dyer Name Role Phone Rey Heck MD Primary Care Provider Randy Bravo MD Unavailable [phone] Bran العراقي DO Unavailable [phone] Dave Parker MD Unavailable Encounters Date Type Department Care Team Description 09/24/2024 Orders Only [facility] Medical Group Cardiology [address] [place] [address] Ana Hackett NP 09/22/2024 Orders Only [facility] Medical [facility] Cardiology [address] [place] [address] Dinah Stallings MD from Last 3 Months Allergies Active Allergy Reactions Criticality Noted Date [...] Administration Dates Next Due Influenza, Unspecified 12/09/2016 Impact Driven (J&J) SARS-CoV-2 Vaccination 08/25/2020 Social History Tobacco [...] on file Legal Sex Male 7:30 PM FERRY TERMINAL SUPERVISOR Gender Identity Not on file Sexual Orientation Not on file 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 Not on file Not on file Last Filed Vital Signs Vital Sign Reading Time Taken Comments Blood Pressure 101/57 04/11/2024 8:59 AM FERRY TERMINAL SUPERVISOR Pulse 65 04/11/2024 8:59 AM FERRY TERMINAL SUPERVISOR Temperature 37.1 C (98.8 F) 04/11/2024 8:59 AM FERRY TERMINAL SUPERVISOR Respiratory Rate 17 04/11/2024 8:59 AM FERRY TERMINAL SUPERVISOR Oxygen Saturation 96% 04/11/2024 8:59 AM FERRY TERMINAL SUPERVISOR Inhaled Oxygen Concentration - - Weight 80.3 kg (177 lb) 04/10/2024 3:30 PM FERRY TERMINAL SUPERVISOR Height 177.8 cm (5' 10) 04/10/2024 3:30 PM FERRY TERMINAL SUPERVISOR Body Mass Index 25.4 04/10/2024 3:30 PM FERRY TERMINAL SUPERVISOR Plan of Treatment Not on file Medical Devices Implanted Type Area School Principal Device Identifier Shelf Expiration Date Model / Serial / Lot Medtronic Card Vasc Surgery 4.0 X 30mm [place] Rx Coronary Stent [id number] - [id number] Implanted:Qty: 1 on 07/25/2023 by Dave Parker MD at [facility] Medtronic Card Vasc Surgery 03/30/2026 [id number] / / [id number] [employer] [place] Stent Drug Eluting S Megatron Mr 5.00x8mm [id number] - [id number] Implanted:Qty: 1 on 07/25/2023 by Dave Parker MD at [facility] [employer] [place] 10/30/2024 [id number] / / [id number] TerDragonfly Angio-Seal Vip 6fr Closere Device [id number] - [id number] Implanted:Qty: 1 on 07/25/2023 by Dave Parker MD at [facility] [id number] / / [employer] Xact 8-10mm 40mm Self Expand Closed Cell Flare End Freestyle [id number] - [id number] Implanted:Qty: 1 on 04/10/2024 by Varun Zarate MD at [facility] [employer] 09/07/2025 [id number] / / [id number] [facility] Angio-Seal Vip 6fr Closere Device [id number] - [id number] Implanted:Qty: 1 on 04/10/2024 by Varun Zarate MD at [facility] 09/17/2024 [id number] / / Procedures Procedure Name Priority Date/Time [...] HEPATITIS C ANTIBODY Routine 03/31/2018 3:12 PM FERRY TERMINAL SUPERVISOR Porphyria cutanea tarda (HCC) from Last 3 [...] PM CDT) Anatomical Region Laterality Modality Other Result [facility] Dinah Stallings MD CV CARDIAC SERVICES PROCEDU RES Final Result * Cardiology Document Scan (09/17/2024 2:45 PM CDT) Anatomical Region Laterality Modality Other Result [facility] Dinah Stallings MD CV CARDIAC SERVICES PROCEDU RES Final Result * Cardiology Document Scan (09/17/2024 2:40 PM CDT) Anatomical Region Laterality Modality Other Result [facility] Dinah Stallings MD CV CARDIAC SERVICES PROCEDU RES Final Result * Cardiology Document Scan (09/16/2024 2:18 PM CDT) Anatomical Region Laterality Modality Other Dinah Stallings MD CV CARDIAC SERVICES PROCEDU RES Final Result * Hepatitis C antibody (03/31/2018 3:12 PM FERRY TERMINAL SUPERVISOR) Hep C Ab <0.1 0.0 - 0.9 s/co ratio [facility] - 01 Comment: Negative: < 0.8 Indeterminate: 0.8 - 0.9 Positive: > 0.9 The CDC recommends that a positive HCV antibody result be followed up with a HCV Nucleic Acid Amplification test (036554). Blood specimen (specimen) 03/31/2018 3:12 PM FERRY TERMINAL SUPERVISOR 03/31/2018 Narrative [facility] - 04/01/2018 8:31 AM FERRY TERMINAL SUPERVISOR Performed at: [facility] [address] [id number] Chief Innovation Officer: Mihir Paul PhD, Phone: [phone] us Bran العراقي DO LAB MICROBIOLOGY - GENERAL O RDERABLES Final Result [facility] - 01 from Last 3 Months or Most Recently Relevant to Health Maintenance Insurance MEDICARE O HUMANA MEDICARE HMO Advance Directives For more information, please contact: [phone] * Full Code (Latest Code Status on File) Date Activated Date Inactivated Comments 04/10/2024 11:03 AM 04/11/2024 7:10 PM * Full Code Date Activated Date Inactivated Comments 07/25/2023 10:42 AM 07/26/2023 6:13 PM Care Teams Package Dyer Relationship Specialty Start Date End Date Rey Heck MD PCP - General Internal Medicine 01/16/18 Randy Bravo MD Dermatology 01/20/18 Bran العراقي DO [address] [place] [address] Medical Oncologist/Hematologis t Hematology and Oncology 06/11/18 Dave Parker MD [address] [place] [address] Consulting Physician Cardiovascular Disease 07/26/23
--- OUTSIDE RECORDS SUMMARY | 2024-10-07 22:57 | XMS_ITS ---
Author Organization [facility] Address [address] [facility] [address] [facility] [address] [place] [address] Care Team Providers Care Manager Pricing Name Role Phone Carrington Robert Unavailable [phone] Problems Problem Type SNOMED Code ICD Code Onset Dates Problem Status W/U Status Risk Notes Problem Essential hypertension (31740053) Essential hypertension (I10) Active confirmed Problem Gastro-esophageal reflux disease without esophagitis (247601279) Gastro-esophagea l reflux disease without esophagitis (K21.9) Active confirmed Problem Hyperlipidemia (52567680) Hyperlipidemia, unspecified (E78.5) Active confirmed Problem Coronary artery disease (70968110) CAD (coronary artery disease) (I25.10) Active confirmed Problem Cardiomyopathy (12679150) Cardiomyopathy, unspecified (I42.9) Active confirmed Encounters Encounter Location Date Provider Diagnosis [place] [facility] [address] [facility] [address] [place] [address] 06/24/2024 Robert Shultz Chronic kidney disease, stage [...] * MALU MENDIOLADOB: 0 (73 yo M)Acc No.[id number]:06/24/2024 Progress Notes Patient: MALU JIMENES Provider: Regis SIDDIQUI MD, Saranya.Carlos.Jose Manuel.P, F.A.S.N. :1950 A ge:73 Y S ex:Male Date:06/24/2024 Address:[address] [place] [address] Subjective: * Chief Complaints: * * Medical [...] Treatment: * Billing Information: * Visit Code: 44551 Office Visit, New Pt., Level 5. * Procedure Codes: * Electronic signature of Gaudencio Shultz MD on 10/07/2024 at 10:57 PM CDT Sign off status: Pending * Provider: Regis SIDDIQUI MD, Saranya.Carlos.Jose Manuel.P, F.A.S.N. Date: 0 06/24/2024 Generated for Printing/Faxing/eTransmitting on: 0 10/07/2024 10:57 PM CDT
--- OUTSIDE RECORDS SUMMARY | 2024-10-07 22:58 | XMS_ITS | Continuity of Care Document ---
Author Organization [facility] Address [address] [facility] [address] [place] [address] Phone Care Team Providers Care Senior Software Engineer Name Role Phone Rm OD, Esteban Unavailable Unavailable Advance Directives Directive Yes / No Effective Date File Name No Information Encounters Encounter Description Practice Location Reason(s) For Visit Diagnoses Date Provider Providers Copied on Encounter [facility], [address], [place], [place], [id number], [place] tel:[phone] [facility] No Information 4-200 5 Rm OD Esteban. [address] , [address], [place], [address], [place]. tel:[phone] Family History Family Member Type Diagnosis Age At Onset No Information Payers Payer name Insurance type Covered green party ID Authoriza tion(s) Libyan [facility] [id number] Social History Type Description Quantity Date Captured [...]
--- OUTSIDE RECORDS SUMMARY | 2024-10-07 22:58 | XMS_ITS | Clinical Summary ---
Author Organization [facility] Address [address] [place] [address] Phone Care Team Providers Care Tax Associate Attorney Name Role Phone Rey Heck MD Primary Care Provider [phone] Social History Tobacco Use Types Packs/Day Years Used Date Smoking Tobacco: Never Assessed Sex and Gender Information Value Date Recorded Sex Assigned at Not on file Legal Sex Male 12:19 AM CDT Gender Identity Not on file Sexual Orientation Not on file Plan of Treatment Health Maintenance Due Date Last Done Comments Hepatitis C Virus (HCV) Screening 1950 TdaP Immunization 1950 Cologuard 1994 Colonoscopy 1994 Colorectal Cancer Screening 1994 Immunochemical Fecal Occult Blood 1994 Pneumococcal Immunization (5 0+ years) (1 of 1 - PCV) 10/28/1999 Zoster Immunization (1 of 2) 10/28/1999 SARS-COV-2 Immunization (3 - season) 2023 03/02/2021, 08/25/2020 Respiratory Syncytial Virus (RSV) Immunization (Adult) (1 - 1-dose 75+ series) 2024 Influenza Immunization (#1) 2024 12/09/2016 Hepatitis B Immunization Aged Out No longer eligible based on patient's age to complete this topic Human Papillomavirus (HPV) Immunization Aged Out No longer eligible b ased on patient's age to complete this topic Meningococcal Immunization (ACWY) Aged Out No longer eligible b ased on patient's age to complete this topic Rotavirus Immunization Aged Out No lo nger eligible based on patient's age to complete this topic Insurance MEDICARE C HUMANA Care Teams Tax Associate Attorney Relationship Specialty Start Date End Date Rey Heck MD PCP - General Internal Medicine 03/18/18
--- OUTSIDE RECORDS SUMMARY | 2024-10-07 22:58 | XMS_ITS ---
Author Organization [facility] Address [address] [place] [address] Care Team Providers Care Rubber Stamp Maker Name Role Phone Robert Shultz Unavailable [phone] Problems Problem Type SNOMED Code ICD Code Onset Dates Problem Status W/U Status Risk Notes Problem Diabetic renal disease (860038615) Type 2 diabetes mellitus with diabetic chronic kidney disease (E11.22) Active confirmed Problem Renal osteodystrophy (75223162) Renal osteodystrophy (N25.0) Active confirmed Problem Secondary hyperparathyroidism of renal origin (76695584) Secondary hyperparathyroidism of renal origin (N25.81) Active confirmed Problem Proteinuria (55861702) Proteinuria, unspecified (R80.9) Active confirmed Encounters Encounter Location Date Provider Diagnosis [place] [facility] [address] [facility] [address] [place] [address] 07/22/2024 Robert Shultz Chronic kidney disea se, [...] * MALU MENDIOLADOB: 0 (73 yo M)Acc No.[id number]:07/22/2024 Progress Notes Patient: MALU JIMENES Provider: Regis SIDDIQUI MD, F.A.C.P, F.A.S.N. :1950 A ge:73 Y S ex:Male Date:07/22/2024 Address:[address] [place] [address] Subjective: * Chief Complaints: * * Medical [...] Treatment: * Billing Information: * Visit Code: 42493 Office Visit, Est Pt., Level 4. * Procedure Codes: * Electronic signature of Gaudencio Shultz MD on 10/07/2024 at 10:58 PM CDT Sign off status: Pending * Provider: Regis SIDDIQUI MD, F.A.C.P, F.A.S.N. Date: 0 07/22/2024 Generated for Printing/Faxing/eTransmitting on: 0 10/07/2024 10:58 PM CDT
--- OUTSIDE RECORDS SUMMARY | 2024-10-07 22:58 | XMS_ITS | Patient Health Record ---
Author Organization [facility] Address [address] [place] [address] Care Team Providers Care Game Artist Name Role Phone Robert Shultz Unavailable [phone] Reason For Referral No Information Medications Medication SIG (Take, Route, Frequency, Duration) Notes Start Date End Date Status Calcitriol 0.25 MCG 1 capsule Orally Onc e a day; Duration: 90 day(s) 07/22/2024 04/17/2025 Active Ergocalciferol 1.25 MG (92694 UT) 1 capsule Orally Once a week; Duration: 30 days 07/22/2024 11/19/2024 Active Losartan Potassium 25 MG 1 tablet Orally Once a day; Duration: 90 day(s) 07/22/2024 Active Problems Problem Type SNOMED Code ICD Code Onset Dates Problem Status W/U Status Risk Notes Problem Diabetic renal disease (825455889) Type 2 diabetes mellitus with diabetic chronic kidney disease (E11.22) Active confirmed Problem Hyperlipidemia (43480070) Hyperlipidemia, unspecified (E78.5) Active confirmed Problem Cardiomyopathy, unspecified (I42.9) Active confirmed Problem Gastro-esophageal reflux disease without esophagitis (196002846) Gastro-esophageal reflux disease without esophagitis (K21.9) Active confirmed Problem Chronic kidney disease stage 4 (082498883) Chronic kidney disease, stage 4 (severe) (N18.4) Active confirmed Problem Renal osteodystrophy (60276711) Renal osteodystrophy (N25.0) Active confirmed Problem Secondary hyperparathyroidism of renal origin (86998444) Secondary hyperparathyroidism of renal origin (N25.81) Active confirmed Problem Proteinuria (66770453) Proteinuria, unspecified (R80.9) Active confirmed Problem Essential hypertension (14700140) Essential hypertension (I10) Active confirmed Problem Coronary artery disease (76369284) CAD (coronary artery disease) (I25.10) Active confirmed Encounters Encounter Location Date Provider Diagnosis [facility] [address] [place] [address] 06/24/2024 Robert Shultz Chronic kidney disea se, stage 3 unspecified N18.30 ; Essential hypertension I10 ; Gastro-esophageal reflux disease without esophagitis K21.9 ; Hyperlipidemia, unspecified E78.5 ; CAD (coronary artery disease) I25.10 and Cardiomyopathy, unspecified I42.9 [facility] [address] [place] [address] 07/22/2024 Robert Shultz Chronic kidney disea se, stage 3a N18.31 ; Essential hypertension I10 ; Gastro-esophageal reflux disease without esophagitis K21.9 ; Hyperlipidemia, unspecified E78.5 ; CAD (coronary artery disease) I25.10 ; Cardiomyopathy, unspecified I42.9 ; Type 2 diabetes mellitus with diabetic chronic kidney disease E11.22 ; Renal osteodystrophy N25.0 ; Secondary hyperparathyroidism of renal origin N25.81 and Proteinuria, unspecified R80.9 [facility] [address] [place] [address] 09/02/2024 Robert Shultz Chronic kidney disea se, stage 4 (severe) N18.4 ; Essential hypertension I10 ; Gastro-esophageal reflux disease without esophagitis K21.9 ; Hyperlipidemia, unspecified E78.5 ; CAD (coronary artery disease) I25.10 ; Cardiomyopathy, unspecified I42.9 ; Type 2 diabetes mellitus with diabetic chronic kidney disease E11.22 ; Renal osteodystrophy N25.0 ; Secondary hyperparathyroidism of renal origin N25.81 and Proteinuria, unspecified R80.9 [facility] [address] [place] [address] 07/22/2024 Robert Shultz Assessments Encounter Date Diagnosis [...]
--- NOTE | 2024-10-07 22:59 | ECG_ITS ---
Test Date: 2024-10-07 23:02:37 Measurements Intervals [place] Rate: 111 P: 42 MN: 160 QRS: 18 QRSD: 85 T: 41 QT: 345 QTc: 469 Interpretive Statements SINUS TACHYCARDIA WITH OCCASIONAL SUPRAVENTRICULAR PREMATURE COMPLEXES NONSPECIFIC ST & T-WAVE ABNORMALITY ABNORMAL RHYTHM ECG Compared to ECG 09/18/2024 01:57:40 T-wave abnormality now present Sinus rhythm no longer present Electronically Signed On 10-08-2024 11:07:05 CDT by Brad Valladares M.D.
[2024-10-07 23:03] VITALS: BP 116/58; PULSE 106; RESP 20; O2SAT 100
[2024-10-07 23:16] LABS: Immature Granulocyte Percent A 0.5 % (0-0.5); Lymphocytes Absolute Auto 1.21 K/mm3 (0.9-3.2); Mean Corpuscular HGB Conc 31.2 g/dl (32-36); Mean Corpuscular Hemoglobin 30.7 pg (26-34); Mean Corpuscular Volume 98.5 fl (80-100); Nucleated Red Blood Cells Absolute Auto 0.000 K/mm3 (0.0-0.012); Nucleated Red Blood Cells Perc 0.0 % (0.0-0.2); Platelet Count Result 244 k/mm3 (150-375); Red Blood Count 2.02 M/mm3 (4.6-6.20); White Blood Count 5.6 K/mm3 (4.5-10.0)
[2024-10-07 23:21] LABS: Hematocrit 19.9 % (42.0-52.0); Hemoglobin 6.2 g/dL (14.0-18.0)
[2024-10-07 23:29] LABS: Alanine Aminotransferase 30 U/L (6-50); Albumin Level 3.3 g/dL (3.5-5.1); Alkaline Phosphatase 65 U/L (38-126); Anion Gap 2 mmol/L (4-12); Aspartate Amino Transferase 44 U/L (17-59); Bilirubin,Total 0.5 mg/dL (0.2-1.3); Blood Urea Nitrogen 24 mg/dL (9-20); Calcium 8.5 mg/dL (8.4-10.2); Carbon Dioxide 35 mmol/L (22-30); Chloride 96 mmol/L (98-107); Estimated CRCL calculation 13 ml/min; Estimated Glomerular Filt Rate 12; Glucose 109 mg/dL (65-110); Lipase 130 U/L (23-300); Potassium 3.1 mmol/L (3.4-5.0); Sodium 133 mmol/L (137-145); Total Protein 5.9 g/dL (6.3-8.2)
--- OUTSIDE RECORDS SUMMARY | 2024-10-07 23:29 | XMS_ITS | Referral Summary ---
Author Organization [facility] Address [facility] [place] [address] Care Team Providers Care Director Of Assisted Living Name Role Phone Rey Heck MD Primary Care Provider Randy Bravo MD Unavailable [phone] Bran العراقي DO Unavailable [phone] Dave Parker MD Unavailable Encounters Date Type Department Care Team Description 09/24/[address] [facility] Cardiology [address] [place] [address] Ana Hackett NP 09/22/[address] 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 Not on file Not on file Last Filed Vital Signs Vital Sign Reading Time Taken Comments Blood Pressure 101/57 04/11/2024 8:59 AM SLIP BRIDGE OPERATOR Pulse 65 04/11/2024 8:59 AM SLIP BRIDGE OPERATOR Temperature 37.1 C (98.8 F) 04/11/2024 8:59 AM SLIP BRIDGE OPERATOR Respiratory Rate 17 04/11/2024 8:59 AM SLIP BRIDGE OPERATOR Oxygen Saturation 96% 04/11/2024 8:59 AM SLIP BRIDGE OPERATOR Inhaled Oxygen Concentration - - Weight 80.3 kg (177 lb) 04/10/2024 3:30 PM SLIP BRIDGE OPERATOR Height 177.8 cm (5' 10) 04/10/2024 3:30 PM SLIP BRIDGE OPERATOR Body Mass Index 25.4 04/10/2024 3:30 PM SLIP BRIDGE OPERATOR Plan of Treatment Not on file Medical Devices Implanted Type Area Document Management Analyst Device Identifier Shelf Expiration Date Model / Serial / Lot Medtronic Card Vasc Surgery 4.0 X 30mm [place] Rx Coronary Stent [id number] - [id number] Implanted:Qty: 1 on 07/25/2023 by Dave Parker MD at [facility] Medtronic Card Vasc Surgery 03/30/2026 [id number] / / [id number] [employer] Stent Drug Eluting S Megatron Mr 5.00x8mm [id number] - [id number] Implanted:Qty: 1 on 07/25/2023 by Dave Parker MD at [facility] [employer] 10/30/2024 [id number] / / [id number] TerJustSpotted Angio-Seal Vip 6fr Closere Device [id number] - [id number] Implanted:Qty: 1 on 07/25/2023 by Dave Parker MD at [facility] [id number] / / Piedra V[employer] Xact 8-10mm 40mm Self Expand Closed Cell Flare End Freestyle [id number] - [id number] Implanted:Qty: 1 on 04/10/2024 by Varun Zarate MD at [facility] [employer] 09/07/2025 [id number] / / [id number] [facility] Angio-Seal Vip 6fr Closere Device [id number] - [id number] Implanted:Qty: 1 on 04/10/2024 by Varun Zarate MD at [facility] 09/17/2024 [id number] / / Procedures Procedure Name Priority Date/Time [...] HEPATITIS C ANTIBODY Routine 03/31/2018 3:12 PM SLIP BRIDGE OPERATOR Porphyria cutanea tarda (HCC) from Last 3 [...] CDT) Anatomical Region Laterality Modality Other Result [facility] Dinah Stallings MD CV CARDIAC SERVICES PROCEDU RES Final Result * Cardiology Document Scan (09/17/2024 2:45 PM CDT) Anatomical Region Laterality Modality Other Result [facility] Dinah Stallings MD CV CARDIAC SERVICES PROCEDU RES Final Result * Cardiology Document Scan (09/17/2024 2:40 PM CDT) Anatomical Region Laterality Modality Other Result [facility] Dinah Stallings MD CV CARDIAC SERVICES PROCEDU RES Final Result * Cardiology Document Scan (09/16/2024 2:18 PM CDT) Anatomical Region Laterality Modality Other Dinah Stallings MD CV CARDIAC SERVICES PROCEDU RES Final Result * Hepatitis C antibody (03/31/2018 3:12 PM SLIP BRIDGE OPERATOR) Hep C Ab <0.1 0.0 - 0.9 s/co ratio [facility] - 01 Comment: Negative: < 0.8 Indeterminate: 0.8 - 0.9 Positive: > 0.9 The CDC recommends that a positive HCV antibody result be followed up with a HCV Nucleic Acid Amplification test (625026). Blood specimen (specimen) 03/31/2018 3:12 PM SLIP BRIDGE OPERATOR 03/31/2018 Narrative [facility] - 04/01/2018 8:31 AM SLIP BRIDGE OPERATOR Performed at: [facility] [address] [id number] Head Inspector: Mihir Paul PhD, Phone: [phone] us Bran العراقي DO LAB MICROBIOLOGY - GENERAL O RDERABLES Final Result [facility] - 01 from Last 3 Months or Most Recently Relevant to Health Maintenance Insurance MEDICARE O HUMANA MEDICARE HMO Advance Directives For more information, please contact: [phone] * Full Code (Latest Code Status on File) Date Activated Date Inactivated Comments 04/10/2024 11:03 AM 04/11/2024 7:10 PM * Full Code Date Activated Date Inactivated Comments 07/25/2023 10:42 AM 07/26/2023 6:13 PM Care Teams Director Of Assisted Living Relationship Specialty Start Date End Date Rey Heck MD PCP - General Internal Medicine 01/16/18 Randy Bravo MD Dermatology 01/20/18 Bran العراقي DO [address] [place] [address] Medical Oncologist/Hematologis t Hematology and Oncology 06/11/18 Dave Parker MD [address] [place] [address] Consulting Physician Cardiovascular Disease 07/26/23
--- OUTSIDE RECORDS SUMMARY | 2024-10-07 23:29 | XMS_ITS | Encounter Summary ---
Author Organization [facility] Address [address] [facility] [place] [address] Care Team Providers Care Exhibit Cleaner Name Role Phone Unavailable Primary Care Provider Unavailabl e Encounter Details Date Type Department Care Team (Late st Contact Info) Description 06/17/2024 Lab Requisition [facility] - DermPath Lab [address] [place] [id number] Randy Bravo MD [facility] DERMATOLOGY [address] [place] [address] Neoplasm of uncertain behavior of skin Social History Tobacco Use Types Packs/Day Years Used Date Smoking Tobacco: Never Assessed Sex and Gender Information Value Date Recorded Sex Assigned at Not on file Legal Sex Male 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 Gender Identity Not on file Sexual Orientation Not on file documented as of this encounter Plan of Treatment Not on file documented as of this encounter Procedures Procedure Name Priority Date/Time Associated Diagnosis Comments DERMATOPATHOLOGY Routine 06/17/2024 3:33 AM CDT Neoplasm of uncertain behavior of skin documented in this encounter Results * DERMATOPATHOLOGY (06/17/2024 3:33 AM CDT) Case Report Dermatopathology Report Case: [id number] Authorizing Provider: Randy Bravo MD Collected: 06/17/2024 03:33 AM Ordering Location: [facility] - Received: 06/18/2024 12:37 [...] characteristic determined by the Dermatopathology Laboratory at [facility], directed by Dr. Hoa Zayas. These tests need not be, and therefore are not, approved by the [place] Food and Drug Administration. The tests are used for clinical purposes. Billing Codes Specimen Charges Stain Charges 01853 1 1:05 PM CDT DERMATOPATHOLOGY LABORATORY Embedded Images 1:05 PM CDT DERMATOPATHOLOGY LABORATORY Pathology/Cytolo gy TISSUE SPECIMEN FROM SKIN / Unknown 06/17/2024 3:33 AM CDT 06/18/2024 12:37 PM CDT Randy Bravo MD LAB - PATHOLOGY/CYTOLOGY ORDE FRANCIE Final Result DERMATOPATHOLOGY LABORATORY [facility] - Department of Dermatology [address], [address] [phone] documented in this encounter Visit Diagnoses Diagnosis Neoplasm of uncertain behavior of skin documented in this encounter
--- OUTSIDE RECORDS SUMMARY | 2024-10-07 23:29 | XMS_ITS | Clinical Summary ---
Author Organization [facility] Address [facility] [place] [address] Care Team Providers Care Mult Au Matic Operator Name Role Phone Rey Heck MD Primary Care Provider [phone] Randy Bravo MD Unavailable [phone] Bran العراقي DO Unavailable [phone] Dave Parker MD Unavailable Allergies Active Allergy [...] Care Team Description 09/24/[address] [facility] Cardiology [address] [place] [address] Ana Hackett NP 09/22/[address] 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 Not on file Not on file Obstetrics History Last Filed Vital Signs Vital Sign Reading Time Taken Comments Blood Pressure 101/57 04/11/2024 8:59 AM CUBE CUTTER Pulse 65 04/11/2024 8:59 AM CUBE CUTTER Temperature 37.1 C (98.8 F) 04/11/2024 8:59 AM CUBE CUTTER Respiratory Rate 17 04/11/2024 8:59 AM CUBE CUTTER Oxygen Saturation 96% 04/11/2024 8:59 AM CUBE CUTTER Inhaled Oxygen Concentration - - Weight 80.3 kg (177 lb) 04/10/2024 3:30 PM CUBE CUTTER Height 177.8 cm (5' 10) 04/10/2024 3:30 PM CUBE CUTTER Body Mass Index 25.4 04/10/2024 3:30 PM CUBE CUTTER Plan of Treatment Health Maintenance Due Date [...] Completed 03/31/2018 Medical Devices Implanted Type Area Hospital Account Liaison Device Identifier Shelf Expiration Date Model / Serial / Lot [facility] Vas Surgery 4.0 X 30mm [place] Rx Coronary Stent [id number] - [id number] Implanted:Qty: 1 on 07/25/2023 by Dave Parker MD at [facility] Surgery 03/30/2026 [id number] / / [id number] [employer] Stent Drug Eluting S Megatron Us Mr 5.00x8mm [id number] - [id number] Implanted:Qty: 1 on 07/25/2023 by Dave Parker MD at [facility] [employer] 10/30/2024 [id number] / / [id number] TerNanoflex Angio-Seal Vip 6fr Closere Device [id number] - [id number] Implanted:Qty: 1 on 07/25/2023 by Dave Parker MD at [facility] [employer] [id number] / / Piedra Vascular Xact 8-10mm 40mm Self Expand Closed Cell Flare End Freestyle 83824-11 - [id number] Implanted:Qty: 1 on 04/10/2024 by Varun Zarate MD at [facility] [employer] 09/07/2025 [id number] / / [id number] [employer] Medical [place] Angio-Seal Vip 6fr Closere Device [id number] - [id number] Implanted:Qty: 1 on 04/10/2024 by Varun Zarate MD at [facility] [employer] Sulma 09/17/2024 [id number] / / Procedures Procedure Name Priority Date/Time [...] HEPATITIS C ANTIBODY Routine 03/31/2018 3:12 PM CUBE CUTTER Porphyria cutanea tarda (HCC) from Last 3 [...] * Hepatitis C antibody (03/31/2018 3:12 PM CUBE CUTTER) Hep C Ab <0.1 0.0 - 0.9 s/co ratio [facility] - 01 Comment: Negative: < 0.8 Indeterminate: 0.8 - 0.9 Positive: > 0.9 The CDC recommends that a positive HCV antibody result be followed up with a HCV Nucleic Acid Amplification test (488359). Blood specimen (specimen) 03/31/2018 3:12 PM CUBE CUTTER 03/31/2018 Narrative [facility] - 04/01/2018 8:31 AM CUBE CUTTER Performed at: - [facility] [id number] Forest [employer] Professor: Mihir Paul PhD, Phone: [phone] Bran العراقي DO LAB MICROBIOLOGY - GENERAL O RDERABLES Final Result [facility] - 01 from Last 3 Months or Most Recently Relevant to Health Maintenance Insurance HUMANA CHOICE MEDICARE PPO HUMANA MEDICARE HMO Advance Directives For more information, please contact: [phone] * Full Code (Latest Code Status on File) Date Activated Date Inactivated Comments 04/10/2024 11:03 AM 04/11/2024 7:10 PM * Full Code Date Activated Date Inactivated Comments 07/25/2023 10:42 AM 07/26/2023 6:13 PM Care Teams Mult Au Matic Operator Relationship Specialty Start Date End Date Rey Hcek MD PCP - General Internal Medicine 01/16/18 Randy Bravo MD Dermatology 01/20/18 Bran العراقي DO [address] [place] [address] Medical Oncologist/Hematologis t Hematology and Oncology 06/11/18 Dave Parker MD [address] [place] [address] Consulting Physician Cardiovascular Disease 07/26/23
--- OUTSIDE RECORDS SUMMARY | 2024-10-07 23:29 | XMS_ITS | Clinical Summary ---
Author Organization [facility] Address [address] [place] [address] Care Team Providers Care Home Designer Name Role Phone Yasmin Madden MD Primary [...] Comments Blood Pressure 143/80 04/01/2024 1:17 PM CORPORATE FINANCIAL ANALYST Pulse 76 04/01/2024 1:15 PM CORPORATE FINANCIAL ANALYST Temperature 36.7 C (98.1 F) 04/01/2024 1:15 PM CORPORATE FINANCIAL ANALYST Respiratory Rate 15 04/01/2024 1:15 PM CORPORATE FINANCIAL ANALYST Oxygen Saturation 97% 04/01/2024 1:15 PM CORPORATE FINANCIAL ANALYST Inhaled Oxygen Concentration - - Weight 81.6 kg (179 lb 12.8 oz) 04/01/2024 1:15 PM CORPORATE FINANCIAL ANALYST Height 175.3 cm (5' 9) 06/27/2023 10:0 [...] HUMANA GOLD PLUS O MCR Care Teams Home Designer Relationship Specialty Start Date End Date Yasmin Madden MD PCP - General Internal Medicine 06/27/23
[2024-10-07 23:30] LABS: INR 1.1; Partial Thromboplastin Time 30.9 Seconds (22.3-36.8); Prothrombin Time 14.4 Seconds (11.1-14.7)
--- OUTSIDE RECORDS SUMMARY | 2024-10-07 23:30 | XMS_ITS | Clinical Summary ---
Author Organization [facility] Address [address] [place] [address] Phone Care Team Providers Care Residence Director Name Role Phone Rey Heck MD Primary Care Provider [phone] Social History Tobacco Use Types Packs/Day Years [...] topic Insurance MEDICARE C HUMANA Care Teams Residence Director Relationship Specialty Start Date End Date Rey Heck MD PCP - General Internal Medicine 03/18/18
--- OUTSIDE RECORDS SUMMARY | 2024-10-07 23:30 | XMS_ITS | Clinical Summary ---
Author Organization [facility] Address [address] [place] [address] Care Team Providers Care Data Modeler Name Role Phone Unavailable Primary Care Provider Unavailabl e Source Comments [facility],non-owned Affiliates and Associated Physician Practices is amultiple site organization consisting of ambulatory clinics and hospital sitesin [place], [place]. This disclosure is being madepursuant to the Care Everywhere program and may not contain all information available regarding this patient. 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
--- OUTSIDE RECORDS SUMMARY | 2024-10-07 23:30 | XMS_ITS | Encounter Summary ---
Author Organization [facility] Address [address] [place] [address] Care Team Providers Care Pearler Name Role Phone Unavailable Primary Care Provider Unavailabl e Encounter Details Date Type Department Care Team (Late st Contact Info) Description 04/30/2023 Lab Requisition [facility] - DermPath Lab [address] [place] [id number] Randy Bravo MD [facility] DERMATOLOGY [address] [place] [phone] Neoplasm of uncertain behavior of skin Social History Tobacco Use Types Packs/Day Years Used Date Smoking Tobacco: Never Assessed Sex and Gender Information Value Date Recorded Sex Assigned at Not on file Legal Sex Male 4:35 PM ENGINEERING PATTERNMAKER Gender Identity Not on file Sexual Orientation Not on file documented as of this encounter Plan of Treatment Not on file documented as of this encounter Procedures Procedure Name Priority Date/Time Associated Diagnosis Comments DERMATOPATHOLOGY Routine 04/30/2023 3:33 AM ENGINEERING PATTERNMAKER Neoplasm of uncertain behavior of skin documented in this encounter Results * DERMATOPATHOLOGY (04/30/2023 3:33 AM ENGINEERING PATTERNMAKER) Case Report Dermatopathology Report Case: [id number] Authorizing Provider: Randy Bravo MD Collected: 04/30/2023 03:33 AM Ordering Location: [facility] DermPath Lab Received: 05/01/2023 01:16 PM Pathologist: Latrice Thibodeaux MD Specimens: A) - Skin, left hand B) - Skin, left ear 2:31 PM ENGINEERING PATTERNMAKER DERMATOPATHOLOGY LABORATORY Final Diagnosis Specimen A. SKIN, left hand: SUPERFICIAL (FOCALLY INVASIVE) SQUAMOUS CELL CARCINOMA ARISING IN AN ACTINIC KERATOSIS (C44.629) Specimen B. SKIN, left ear: BASAL CELL CARCINOMA, FRAGMENTS OF (C44.219) (see microscopic description) 2:31 PM [facility] DERMATOPATHOLOGY LABORATORY at [address]31 ENGINEERING PATTERNMAKER Clinical History A: Squamous Cell Carcinoma B: Basal Cell Carcinoma 2:31 PM [facility] DERMATOPATHOLOGY LABORATORY Gross Description Specimen A: Received [...] measuring 2x1x1 mm. Jar 0. 2:31 PM [facility] DERMATOPATHOLOGY LABORATORY Microscopic Description Specimen A. SKIN, [...] sections were obtained and reviewed. 2:31 PM [facility] DERMATOPATHOLOGY LABORATORY Disclaimer An external and internal positive and negative controls are appropriate for the histochemical, immunohistochemical and immunofluorescence stain(s) in this case (if any), except where stated explicitly. The performance characteristics of the stain(s) cited in this report were developed and its performance characteristic determined by the Dermatopathology Laboratory at [facility], directed by Dr. Hoa Zayas. These tests need not be, and therefore are not, approved by the [place] Food and Drug Administration. The tests are used for clinical purposes. Billing Codes Specimen Charges Stain Charges 21597 98904 1 1 30241 1 2:31 PM [facility] DERMATOPATHOLOGY LABORATORY Embedded Images 2:31 PM [facility] DERMATOPATHOLOGY LABORATORY Pathology/Cytology TISSUE SPECIMEN FROM SKIN / Unknown 04/30/2023 3:33 AM ENGINEERING PATTERNMAKER 05/01/2023 1:16 PM ENGINEERING PATTERNMAKER Miscellaneous samples (specimen) TISSUE SPECIMEN FROM SKIN / Unknown 04/30/2023 3:33 AM ENGINEERING PATTERNMAKER 05/01/2023 1:29 PM ENGINEERING PATTERNMAKER us Randy Bravo MD LAB - PATHOLOGY/CYTOLOGY [facility]OE[facility] Final Result DERMATOPATHOLOGY LABORATORY [facility] - Department of Dermatology [facility] Medicine [address] [place] [address], [address] [phone] documented in this encounter Visit Diagnoses Diagnosis Neoplasm of uncertain behavior of skin documented in this encounter
--- OUTSIDE RECORDS SUMMARY | 2024-10-07 23:30 | XMS_ITS | Continuity of Care Document ---
Author Organization [facility] Address [address] [place] [address] Phone Care Team Providers Care Excavator Operator Name Role Phone Rm OD, Esteban Unavailable Unavailable Advance Directives Directive Yes / No Effective Date File Name No Information Encounters Encounter Description Practice Location Reason(s) For Visit Diagnoses Date Provider Providers Copied on Encounter [facility], [address], [place], [place], [id number], [place] tel:[phone] [facility] No Information 4-200 5 Rm OD Esteban. [address] , [address], [place], [address], [place]. tel:[phone] Family History Family Member Type Diagnosis Age At Onset No Information Payers Payer name Insurance type Covered constitution party ID Authoriza tion(s) [place] [facility] [employer] [id number] Social History Type Description Quantity Date Captured [...]
[2024-10-07 23:39] LABS: Troponin I 0.026 ng/mL (0.000-0.034)
--- NOTE | 2024-10-07 23:49 | ED.GENADULT ---
HPI - General Adult General Chief complaint: Arrhythmia/Palpitations Stated complaint: palpations Time Seen by Provider: 10/07/24 23:08 History of Present Illness HPI narrative: This is a 73-year-old male history of end-stage renal disease on hemodialysis Saturday, coronary artery disease on dual anti-platelet therapy presenting for elevated heart rate. Patient says he went to take out his trash and noticed his heart rate was in the 120s to 130s. This is not normal for him. And prompt him to come to the emergency room. Patient also notes that he is in intermittently having dark stool since his discharge from our hospital several weeks ago. States that he feels excellent overall and is denying dizziness/lightheadedness, chest pain difficulty breathing abdominal pain or urinary symptoms. Patient underwent dialysis earlier today Related Data Home Medications ?Medication ?Instructions ?Recorded ?Confirmed ?Last Taken ?Type ascorbic acid (vitamin C) 500 mg 500 mg PO DAILY 02/06/20 09/16/24 09/14/24 History tablet folic acid 1 mg tablet 1 mg PO DAILY 02/06/20 09/16/24 09/14/24 History levothyroxine 100 mcg tablet 100 mcg PO DAILY 02/06/20 09/16/24 09/14/24 History (Synthroid) rosuvastatin 5 mg tablet 5 mg PO DAILY 05/22/22 09/16/24 09/14/24 History nifedipine 30 mg tablet,extended 30 mg PO DAILY 09/16/24 09/16/24 09/14/24 History release 24 hr Allergies Allergy/AdvReac Type Severity Reaction Status Date / Time icosapent ethyl (From Allergy Diarrhea Verified 10/07/24 23:09 Vascepa) Sulfa (Sulfonamide Allergy rash Verified 10/07/24 23:09 Antibiotics) [facility] Past Medical History Medical History Occult blood in stools Acute on chronic anemia History of right common carotid artery stent placement Coronary artery disease Adenomatous colon polyp Hypertension Surgical History Surgical History History of percutaneous coronary intervention Social History Social History Smoking packs per day: 2 Smoking cigarettes per day: 40.0 Years smoked: 50 Smoking pack-years: 100.00 Smoking status: Former smoker Tobacco type: cigarettes Second hand tobacco smoke exposure: Yes Smoking end date: 09/06/13 Alcohol intake: current Drinks per week: 2 Alcohol use details: BEERS Substance use: never Substance use type: does not use Do You Feel Safe in your Home?: Yes Lack of Transportation: No Lack of Food: Never True Current Housing: I Have Housing Concerned About Future Housing: No Difficulty Paying Gas/Electric Bills: No Difficulty Paying for Meds: No Currently Unemployed: No Education: High School Diploma/GED Difficulty w/ Childcare or Family Care: No Living arrangements: with family Gender identity (if verbalized by the patient): Male Spiritual care concerns: No Exam Narrative: APPEARANCE: No apparent distress. Head: atraumatic. EYES: EOMI, NOSE: Atraumatic NECK: Trachea midline RESPIRATORY: No increased rate of breathing clear to auscultation CARDIOVASCULAR: RRR, no peripheral edema, tunneled catheter in left subclavian ABDOMINAL: Non-distended soft nontender MUSCULOSKELETAl: No obvious deformities NEURO: Alert. Moving 4/4 extremities SKIN:: Warm, dry. Normal color PSYCHIATRIC: Normal affect Course Vital Signs Vital signs: Vital Signs Pulse Rate 106 H 10/07/24 23:03 Respiratory Rate 10/07/24 23:03 Blood Pressure 116/58 L 10/07/24 23:03 Pulse Oximetry 100 10/07/24 23:03 Oxygen Delivery Room Air 10/07/24 23:03 Pulse Rate 106 H 10/07/24 23:03 Respiratory Rate 20 10/07/24 23:03 Blood Pressure 116/58 L 10/07/24 23:03 Pulse Oximetry 100 10/07/24 23:03 Oxygen Delivery Room Air 10/07/24 23:03 Medical Decision Making [facility] Narrative Medical decision making narrative: -Course: 73-year-old male presenting with tachycardia and melanotic stools for last several days. Minimal stool in the rectal vault but Hemoccult positive. Screening lab work obtained which showed a hemoglobin of 6.2. Patient will be transfused 1 unit PRBCs. Rest was lab work redemonstrated his end-stage renal disease. Potassium was 3.1 but will not be repeated due to his ESRD. Patient will be admitted the hospital for GI evaluation. -DDX includes but is not limited to: GI bleed, anemia chronic disease, anemia of end-stage renal disease Vital Signs Vital Signs: Vital Signs Pulse Rate 106 H 10/07/24 23:03 Respiratory Rate 10/07/24 23:03 Blood Pressure 116/58 L 10/07/24 23:03 Pulse Oximetry 100 10/07/24 23:03 Oxygen Delivery Room Air 10/07/24 23:03 Pulse Rate 106 H 10/07/24 23:03 Respiratory Rate 10/07/24 23:03 Blood Pressure 116/58 L 10/07/24 23:03 Pulse Oximetry 100 10/07/24 23:03 Oxygen Delivery Room Air 10/07/24 23:03 Lab Data 10/07/24 23:10 10/07/24 23:10 Labs: Lab Results 10/07/24 10/07/24 Range/Units 23:10 23:28 WBC 5.6 (4.5-10.0) K/mm3 RBC 2.02 L (4.6-6.20) M/mm3 Hgb 6.2 L* D (14.0-18.0) g/dL Hct 19.9 L* (42.0-52.0) % MCV 98.5 (80-100) fl MCH 30.7 (26-34) pg MCHC 31.2 L (32-36) g/dl RDW 16.5 H (11.5-14.5) % Plt Count 244 (150-375) k/mm3 MPV 9.9 (7.4-10.4) fl Immature Gran % (Auto) 0.5 (0-0.5) % Neut % (Auto) 61.8 (45.5-73.1) % Lymph % (Auto) 21.7 (18.3-44.2) % Gilliam % (Auto) 10.8 H (2.6-8.5) % Eos % (Auto) 4.3 (0-4.4) % Baso % (Auto) 0.9 (0.2-1.2) % Lymph # (Auto) 1.21 (0.9-3.2) K/mm3 Gilliam # (Auto) 0.6 (0.1-0.6) K/mm3 Eos # (Auto) 0.2 (0-0.3) K/mm3 Baso # (Auto) 0.1 (0.0-0.1) K/mm3 Abs Immat Gran (auto) 0.03 (0.00-0.031) K/mm3 Absolute Neuts (auto) 3.5 (1.3-6.7) K/mm3 Absolute Nucleated RBC 0.000 (0.0-0.012) K/mm3 Nucleated RBC % 0.0 (0.0-0.2) % PT 14.4 (11.1-14.7) Seconds INR 1.1 APTT 30.9 (22.3-36.8) Seconds Sodium 133 L (137-145) mmol/L Potassium 3.1 L (3.4-5.0) mmol/L Chloride 96 L (98-107) mmol/L Carbon Dioxide 35 H (22-30) mmol/L Anion Gap 2 L (4-12) mmol/L BUN 24 H D (9-20) mg/dL Creatinine 4.72 H (0.7-1.3) mg/dL Estim Creat Clear Calc 13 ml/min Estimated GFR 12 L (59 - ) Glucose 109 (65-110) mg/dL Calcium 8.5 (8.4-10.2) mg/dL Total Bilirubin 0.5 (0.2-1.3) mg/dL AST 44 (17-59) U/L ALT 30 (6-50) U/L Alkaline Phosphatase 65 (38-126) U/L Troponin I 0.026 (0.000-0.034) ng/mL Total Protein 5.9 L (6.3-8.2) g/dL Albumin 3.3 L (3.5-5.1) g/dL Lipase 130 (23-300) U/L Blood Type Pending Antibody Screen Pending Crossmatch See Detail Discharge Plan Discharge Clinical Impression: Melena Anemia Qualifiers: Anemia type: due to chronic kidney disease Chronic kidney disease stage: unspecified stage Qualified Code(s): N18.9 - Chronic kidney disease, unspecified Patient Disposition: Still a Patient Condition: Stable Patient Language: Rwandan Prescriptions: No Action rosuvastatin 5 mg tablet 5 mg PO DAILY nifedipine 30 mg tablet extended release 24hr 30 mg PO DAILY ticagrelor [Brilinta] 90 mg Tablet 90 mg PO Q12HR 30 Days Qty: 60 0RF polyethylene glycol 3350 [Miralax] 17 gram Powder In Packet 17 g PO QAM Qty: 30 0RF sennosides-docusate sodium [Senokot-S] 8.6-50 mg Tablet 1 tab PO HS Qty: 30 0RF pantoprazole 40 mg Tablet,Delayed Release (Dr/Ec) 40 mg PO Q12HR Qty: 60 0RF nitroglycerin [Nitrostat] 0.4 mg Tablet, Sublingual 0.4 mg sublingual Q5MIN PRN (Reason: Chest Pain) Qty: 26 0RF aspirin [Children's Aspirin] 81 mg Tablet,Chewable 81 mg PO DAILY@0800 Qty: 30 0RF midodrine 2.5 mg Tablet 5 mg PO TID Qty: 90 0RF levothyroxine [Synthroid] 100 mcg Tablet 100 mcg PO DAILY ascorbic acid (vitamin C) 500 mg Tablet 500 mg PO DAILY folic acid 1 mg Tablet 1 mg PO DAILY Follow-up/Referrals: Maryanne,MD Yasmin [Primary Care Provider] -
[2024-10-08] VITALS (19 sets, daily range): BP systolic 108–146; BP diastolic 53–87; PULSE 78–101; RESP 12–18; TEMP 36.1–37.1; O2SAT 97–100; BMI 24.8
[2024-10-08] MEDS: TUBING, BLOOD PLUM PUMP TUBING 1 EACH XX (01:33)
[2024-10-08] MEDS: SODIUM CHLORIDE 0.9% IV 250 ML 30 ML IV CONT ×2 (01:33→09:10)
[2024-10-08] MEDS: PANTOPRAZOLE SODIUM IV 40 MG VIAL 80 MG IV PUSH (01:46)
--- NOTE | 2024-10-08 01:54 | ECG_ITS ---
Test Date: 2024-10-08 01:57:00 Measurements Intervals [place] Rate: 98 P: 38 CT: 174 QRS: 33 QRSD: 85 T: 40 QT: 364 QTc: 466 Interpretive Statements SINUS RHYTHM NONSPECIFIC T-WAVE ABNORMALITY Compared to ECG 10/07/2024 23:02:37 Sinus tachycardia no longer present T-wave abnormality still present Electronically Signed On 10-08-2024 11:08:48 CDT by Brad Valladares M.D.
--- NOTE | 2024-10-08 02:22 | ADMGEN ---
This patient, Derrek Diaz, was admitted to Medical Room 348-. Patient/family oriented to hospital policies and general routines including ID bracelet, bed and alarms, visiting hours, pain management, procedures, bathroom and other care routines, personal items, smoking policy, room service/diet, and visiting hours. Information on how to activate the Rapid Response Team has been discussed. Patient/Family are encouraged to report perceived risks to care and to ask questions if they do not understand what they are told or what they should do.
[2024-10-08 02:24] LABS: Troponin I 0.026 ng/mL (0.000-0.034)
--- NOTE | 2024-10-08 02:56 | PM.IMHP ---
H&P: HPI History of Present Illness Date/Time: 10/08/24 02:56 Chief Complaint: Fast heart rate Narrative: 73-year-old male with history of CAD status post NSTEMI status post PCI to 99% in stent restenoses of ostial LCX on 09/17/2024, ESRD on HD MWF via left tunneled IJ catheter, anemia who presents to [facility] ER on 10/07/2024 reporting a fast heart rate. One day prior to admission the patient was moving garbage around and while he was checking his blood pressure machine as he does every 4 hours his heart rate was slightly high. On the day of admission it was in the 120s therefore he is seeking further evaluation. He has been completely asymptomatic, no dizziness no chest pain or shortness of breath. He has continued to have black stools, about 1 per day. Discharged from [facility] on 09/24/2024 with an NSTEMI with cardiogenic shock in the above-mentioned PCI to the LCX. At that time he was started on dialysis for acute on chronic renal failure. On discharge his hemoglobin was 9.3. Today on presentation it was 6.2. He has been compliant with his medications including ticagrelor and aspirin. He was seen by GI last admission but his hemoglobin was stable therefore conservative management. Again his hemoglobin was 6.2 in the ER. 1 unit of blood currently being infused. His heart rate ranges between 90 and 101. The patient remains asymptomatic. His potassium is 3.1 but no replacement given considering his end-stage renal disease. Serum creatinine 4.72. He has been on track with dialysis and last received it on Saturday10/07/2024. Chest x-ray one view demonstrates left IJ dialysis catheter with a kink near its tip. No node dysfunction as of now. Mild interstitial edema. Review of Systems Review of Systems: All systems reviewed & are unremarkable except as noted in HPI and below (Subjective/HPI) [facility] Past Medical History Medical History Occult blood in stools Acute on chronic anemia History of right common carotid artery stent placement Coronary artery disease Adenomatous colon polyp Hypertension Surgical History Surgical History History of percutaneous coronary intervention Social History Social History Smoking packs per day: 2 Smoking cigarettes per day: 40.0 Years smoked: 50 Smoking pack-years: 100.00 Smoking status: Former smoker Second hand tobacco smoke exposure: Yes Alcohol intake: former Alcohol use details: BEERS Substance use: never Substance use type: does not use Do You Feel Safe in your Home?: Yes Lack of Transportation: No Lack of Food: Never True Current Housing: I Have Housing Concerned About Future Housing: No Difficulty Paying Gas/Electric Bills: No Difficulty Paying for Meds: No Currently Unemployed: No Education: High School Diploma/GED Difficulty w/ Childcare or Family Care: No Living arrangements: with family Gender identity (if verbalized by the patient): Male Spiritual care concerns: No Meds Home Medications and Allergies Home Medications ?Medication ?Instructions ?Recorded ?Confirmed ?Type ascorbic acid (vitamin C) 500 mg 500 mg PO DAILY 02/06/20 10/08/24 History tablet folic acid 1 mg tablet 1 mg PO DAILY 02/06/20 10/08/24 History levothyroxine 100 mcg tablet 100 mcg PO DAILY 02/06/20 10/08/24 History (Synthroid) rosuvastatin 5 mg tablet 5 mg PO DAILY 05/22/22 10/08/24 History nifedipine 30 mg tablet,extended 30 mg PO DAILY 09/16/24 10/08/24 History release 24 hr ticagrelor 90 mg tablet (Brilinta) 90 mg PO Q12HR 30 days #60 tabs 09/20/24 10/08/24 Rx aspirin 81 mg chewable tablet 81 mg PO DAILY@0800 #30 tabs 09/24/24 10/08/24 Rx (Children's Aspirin) nitroglycerin 0.4 mg sublingual 0.4 mg sublingual Q5MIN PRN Chest 09/24/24 10/08/24 Rx tablet (Nitrostat) Pain #26 tabs pantoprazole 40 mg tablet,delayed 40 mg PO Q12HR #60 tabs 09/24/24 10/08/24 Rx release polyethylene glycol 3350 17 gram 17 g PO QAM #30 ea 09/24/24 10/08/24 Rx oral powder packet (Miralax) sennosides 8.6 mg-docusate sodium 1 tab PO HS #30 tabs 09/24/24 10/08/24 Rx 50 mg tablet (Senokot-S) isosorbide mononitrate 30 mg 30 mg PO DAILY 10/08/24 10/08/24 History tablet,extended release 24 hr losartan 100 mg tablet 100 mg PO DAILY 10/08/24 10/08/24 History Allergies Allergy/AdvReac Type Severity Reaction Status Date / Time icosapent ethyl (From Allergy Diarrhea Verified 10/08/24 02:47 Vascepa) Sulfa (Sulfonamide Allergy rash Verified 10/08/24 02:47 Antibiotics) Vital Signs Vital Signs - 24 hr 10/07/24 23:03 10/08/24 00:14 10/08/24 01:32 Temperature 97.9 F 98.6 F Pulse Rate 106 H 101 H 100 Respiratory Rate 20 18 18 Blood Pressure 116/58 L 112/62 108/87 Pulse Oximetry 100 97 99 Oxygen Delivery Room Air 10/08/24 01:48 10/08/24 02:49 Temperature 98.8 F Pulse Rate 101 H Respiratory Rate 18 Blood Pressure 113/72 Pulse Oximetry 100 Oxygen Delivery Room Air Exam Const: General: comfortable and no acute distress HENMT: Mouth: Yes moist mucous membranes Eyes: Pupils: Equal, round and reactive pupils present Neck: Neck: supple Resp: Effort & Inspection: normal respiratory effort Auscultation: clear to auscultation bilaterally Cardio: Rate: regular rate Rhythm: regular rhythm Heart sounds: Murmur heart sound present GI: Inspection: non-distended GI Palp: Yes Soft to palpation and No Tenderness to palpation present (GI) Neuro: Motor exam (neuro): 5/5 motor strength present throughout Extrem: General: edema (Trace pitting edema bilateral lower extremities around the ankles) H&P: Results Labs Labs: Short CBC 10/07/24 Range/Units 23:10 WBC 5.6 (4.5-10.0) K/mm3 Hgb 6.2 L* D (14.0-18.0) g/dL Hct 19.9 L* (42.0-52.0) % Plt Count 244 (150-375) k/mm3 BMP 10/07/24 23:10 Sodium 133 L Potassium 3.1 L Chloride 96 L Carbon Dioxide 35 H BUN 24 H D Creatinine 4.72 H Glucose 109 Calcium 8.5 Cardiac Enzymes 10/07/24 10/08/24 Range/Units 23:10 01:56 Troponin I 0.026 0.026 (0.000-0.034) ng/mL Liver Function 10/07/24 Range/Units 23:10 Total Bilirubin 0.5 (0.2-1.3) mg/dL AST 44 (17-59) U/L ALT 30 (6-50) U/L Alkaline Phosphatase 65 (38-126) U/L Albumin 3.3 L (3.5-5.1) g/dL Assessment and Plan Assessment and plan (1) Metabolic acidosis: Code(s): E87.20 - Acidosis, unspecified Status: Acute (2) Anemia: Code(s): D64.9 - Anemia, unspecified Status: Acute (3) GI bleed: Code(s): K92.2 - Gastrointestinal hemorrhage, unspecified Status: Acute Plan 73-year-old male with history of CAD status post NSTEMI status post PCI to 99% in stent restenoses of ostial LCX on 09/17/2024, ESRD on HD MWF via left tunneled IJ catheter, anemia who presents to [facility] ER on 10/07/2024 reporting a fast heart rate. One day prior to admission the patient was moving garbage around and while he was checking his blood pressure machine as he does every 4 hours his heart rate was slightly high. On the day of admission it was in the 120s therefore he is seeking further evaluation. He has been completely asymptomatic, no dizziness no chest pain or shortness of breath. He has continued to have black stools, about 1 per day. Discharged from [facility] on 09/24/2024 with an NSTEMI with cardiogenic shock in the above-mentioned PCI to the LCX. At that time he was started on dialysis for acute on chronic renal failure. On discharge his hemoglobin was 9.3. Today on presentation it was 6.2. He has been compliant with his medications including ticagrelor and aspirin. He was seen by GI last admission but his hemoglobin was stable therefore conservative management. Again his hemoglobin was 6.2 in the ER. 1 unit of blood currently being infused. His heart rate ranges between 90 and 101. The patient remains asymptomatic. His potassium is 3.1 but no replacement given considering his end-stage renal disease. Serum creatinine 4.72. He has been on track with dialysis and last received it on Saturday10/07/2024. Chest x-ray one view demonstrates left IJ dialysis catheter with a kink near its tip. No node dysfunction as of now. Mild interstitial edema. ----- Suspect upper GI bleed. It appears he received aspirin 324 mg p.o. x1 in the ER. Moving 4 will hold antiplatelets and anticoagulants. His sinus tachycardia is mostly resolved. He received Protonix 80 mg IV x1. Continue Protonix 40 mg IV b.i.d.. Currently receiving blood, will follow-up with a hemoglobin. Goal hemoglobin greater than 8 g/dL due to the patient's CAD. Will not give crystalloid infusion due to the ESRD. GI consultation pending. Hypokalemia not replaced. Follow-up with a repeat BMP magnesium shortly. Will consult Nephrology to manage dialysis and electrolytes. Patient wishes to be full code. SCDs. NPO. Hospitalist [facility] Advance Care Plan I have confirmed that the patient's Advanced Care Plan is present, code status is documented, or surrogate decision maker is listed in patient medical record.: Yes Medication Reconciliation I have utilized all available resources to obtain, update and review the patients current medications (includes all prescriptions, OTC, herbals, cannabis, and nutritional supplements).: Yes
[2024-10-08 03:51] LABS: MRSA (PCR) NOT DETECTED (NOT DETECTE)
--- NOTE | 2024-10-08 05:37 | ECG_ITS ---
Test Date: 2024-10-08 05:47:00 Measurements Intervals [place] Rate: 84 P: 17 NV: 167 QRS: 29 QRSD: 88 T: 46 QT: 412 QTc: 488 Interpretive Statements SINUS RHYTHM WITH OCCASIONAL SUPRAVENTRICULAR PREMATURE COMPLEXES NONSPECIFIC T-WAVE ABNORMALITY Compared to ECG 10/08/2024 01:57:00 No significant changes Electronically Signed On 10-08-2024 11:09:20 CDT by Brad Valladares M.D.
[2024-10-08 05:58] LABS: Alanine Aminotransferase 25 U/L (6-50); Albumin Level 2.9 g/dL (3.5-5.1); Alkaline Phosphatase 49 U/L (38-126); Anion Gap 5 mmol/L (4-12); Aspartate Amino Transferase 38 U/L (17-59); Bilirubin,Total 0.8 mg/dL (0.2-1.3); Blood Urea Nitrogen 34 mg/dL (9-20); Calcium 8.3 mg/dL (8.4-10.2); Carbon Dioxide 32 mmol/L (22-30); Chloride 100 mmol/L (98-107); Estimated CRCL calculation 13 ml/min; Estimated Glomerular Filt Rate 12; Glucose 89 mg/dL (65-110); Magnesium 1.7 mg/dL (1.6-2.3); Potassium 3.4 mmol/L (3.4-5.0); Sodium 137 mmol/L (137-145); Total Protein 5.2 g/dL (6.3-8.2)
[2024-10-08 06:08] LABS: Troponin I 0.024 ng/mL (0.000-0.034)
[2024-10-08 06:22] LABS: Hematocrit 21.6 % (42.0-52.0); Mean Corpuscular HGB Conc 31.9 g/dl (32-36); Mean Corpuscular Hemoglobin 30.3 pg (26-34); Mean Corpuscular Volume 94.7 fl (80-100); Platelet Count Result 210 k/mm3 (150-375); Red Blood Count 2.28 M/mm3 (4.6-6.20); White Blood Count 5.2 K/mm3 (4.5-10.0)
[2024-10-08 06:25] LABS: Hemoglobin 6.9 g/dL (14.0-18.0)
--- NOTE | 2024-10-08 08:38 | P.CONGI_ITS ---
Assessment and Plan Assessment and plan (1) Acute on chronic anemia: Code(s): D64.9 - Anemia, unspecified Status: Acute (2) Melena: Code(s): K92.1 - Melena Status: Acute Plan 1. Acute on chronic anemia/melena: Last colonoscopy 05/28/2022. No prior EGD Hx. Patient on aspirin and Brilinta was previously on Plavix. Anticoags currently on hold. Recently hospitalized for NSTEMI s/p cardiac cath with stent placement and was also started on hemodialysis for ESRD. Prior to discharge Hgb was 9.3 and on presentation October 07 Hgb 6.2. Labs today after 1 unit PRBC's is Hgb 7, Hct 22, platelets 210 and INR 1.1. Trops negative x 3. No recent GI imaging available. He admits to intermittent black stools since discharge. He did states that for a few days he was having formed brown stools but then one day after dialysis they turned black again. Last BM today started formed and then changed to liquid and was black. Denies BRBPR. At time of discharge he was given Protonix 40 mg BID which he has been taking. Denies any upper GI complaints. * EGD today * keep NPO * continue BID PPI * continue holding anticoags till further recommendations are provided post endoscopy Thank you very much for allowing me to share in the care of this very nice patient. This report may have been done utilizing a voice recognition system. Attempts have been made to correct errors. However, there may be uncorrected grammatical, spelling, and recognition errors present. GI Consult Note Consult date/time: 10/08/24 08:38 Reason for consult: Anemia and melena HPI: Derrek Diaz is a 73 year old male with PMSH of CAD status post NSTEMI status post PCI to 99% in stent restenoses of ostial LCX on 09/17/2024 on dual anti-platelet therapy, end-stage renal disease on hemodialysis (M,W,F), right common carotid artery stent, history of adenomatous colon polyp, and HTN. He presented to the emergency room 10/07/2024 with complaints of elevated heart rate and intermittent dark stools. GI has been consulted for anemia and melena. Patient was seen with his Kelly at his bedside throughout the entire visit. Patient was recently admitted to [facility] September 18 and was discharged on 09/24/2024 with an NSTEMI with cardiogenic shock in the above-mentioned PCI to the LCX. At that time he was started on dialysis for acute on chronic renal failure. On discharge his hemoglobin was 9.3. Upon admission labs showed Hgb 6.2 and Hct 20. He admitted to intermittent dark stools since his discharge. He states that for a short time he was having normal brown stools but then the black stools returned after dialysis one day. His BM's have varied from formed to liquid is discharge. He had a BM today that started formed and ended liquid and was black in color. Denies any BRBPR. Denies any rectal or abdominal pain. Denies nausea, vomiting, bloating, swallowing difficulty, reflux on PPI, regurgitation, early satiety, unexplained weight loss or appetite loss. Family Hx negative for CRC or IBD. ENDOSCOPY HISTORY: EGD: Patient had never had an EGD COLONOSCOPY: 05/28/[address] Isabel for Hx of colon polyps Findings: Diverticulosis Colon polyps internal hemorrhoids Bx results: Large intestine, transverse colon polyp, polypectomy (A): - Hyperplastic polyp Large intestine, descending colon polyp, polypectomy (B): - Tubular adenoma LABS AND STOOL STUDIES: Labs 10/08/2024: WBC 5, Hgb 7, Hct 22, MCV 95, platelets 210, INR 1.1 Sodium 137, potassium 3.4, BUN 34, creatinine 4.69, GFR 12, calcium 8.3 Total bilirubin 0.8, AST 38, ALT 25, Alkaline Phos 49, albumin 2.9, lipase 130 Labs 10/07/2024: WBC 6, Hgb 6.2, Hct 20, MCV 99, platelets 244 Sodium 133, potassium 3.1, BUN 24, creatinine 4.72, GFR 12, calcium 8.5 Total bilirubin 0.5, AST 44, ALT 30, Alkaline Phos 65, albumin 3.3, lipase 130 Labs 09/23/2024: WBC 10, Hgb 9, Hct 23, MCV 95, platelets 205 Sodium 133, potassium 4.2, BUN 71, creatinine 8.88, GFR 6 Total bilirubin 1.0, AST 72, ALT 123, Alkaline Phos 71, albumin 3.0 IMAGING: No recent GI imaging Review of Systems 2 Constitutional: Constitutional: Reports as per HPI ENT: Reports as per HPI Cardiovascular: Cardiovascular: Reports as per HPI, Denies chest pain and Denies dyspnea Respiratory: Respiratory: Denies cough and Denies dyspnea Gastrointestinal: Gastrointestinal: Reports as per HPI Musculoskeletal: Musculoskeletal: Reports as per HPI Integumentary/Breasts: Skin/Breast: Reports as per HPI Psychiatric: Psychiatric: Reports as per HPI Endocrine: Endocrine: Reports no additional endocrine complaints Hematologic/Lymphatic: Hematologic/Lymphatic: Reports no additional hematologic/lymphatic complaints [facility] Past Medical History Medical History Occult blood in stools Acute on chronic anemia History of right common carotid artery stent placement Coronary artery disease Adenomatous colon polyp Hypertension Surgical History Surgical History History of percutaneous coronary intervention Social History Social History Smoking packs per day: 2 Smoking cigarettes per day: 40.0 Years smoked: 50 Smoking pack-years: 100.00 Smoking status: Former smoker Second hand tobacco smoke exposure: Yes Alcohol intake: former Alcohol use details: BEERS Substance use: never Substance use type: does not use Do You Feel Safe in your Home?: Yes Lack of Transportation: No Lack of Food: Never True Current Housing: I Have Housing Concerned About Future Housing: No Difficulty Paying Gas/Electric Bills: No Difficulty Paying for Meds: No Currently Unemployed: No Education: High School Diploma/GED Difficulty w/ Childcare or Family Care: No Living arrangements: with family Gender identity (if verbalized by the patient): Male Spiritual care concerns: No Meds Home Medications and Allergies Home Medications ?Medication ?Instructions ?Recorded ?Confirmed ?Type ascorbic acid (vitamin C) 500 mg 500 mg PO DAILY 02/06/20 10/08/24 History tablet folic acid 1 mg tablet 1 mg PO DAILY 02/06/20 10/08/24 History levothyroxine 100 mcg tablet 100 mcg PO DAILY 02/06/20 10/08/24 History (Synthroid) rosuvastatin 5 mg tablet 5 mg PO DAILY 05/22/22 10/08/24 History nifedipine 30 mg tablet,extended 30 mg PO DAILY 09/16/24 10/08/24 History release 24 hr ticagrelor 90 mg tablet (Brilinta) 90 mg PO Q12HR 30 days #60 tabs 09/20/24 10/08/24 Rx aspirin 81 mg chewable tablet 81 mg PO DAILY@0800 #30 tabs 09/24/24 10/08/24 Rx (Children's Aspirin) nitroglycerin 0.4 mg sublingual 0.4 mg sublingual Q5MIN PRN Chest 09/24/24 10/08/24 Rx tablet (Nitrostat) Pain #26 tabs pantoprazole 40 mg tablet,delayed 40 mg PO Q12HR #60 tabs 09/24/24 10/08/24 Rx release polyethylene glycol 3350 17 gram 17 g PO QAM #30 ea 09/24/24 10/08/24 Rx oral powder packet (Miralax) sennosides 8.6 mg-docusate sodium 1 tab PO HS #30 tabs 09/24/24 10/08/24 Rx 50 mg tablet (Senokot-S) isosorbide mononitrate 30 mg 30 mg PO DAILY 10/08/24 10/08/24 History tablet,extended release 24 hr losartan 100 mg tablet 100 mg PO DAILY 10/08/24 10/08/24 History Allergies Allergy/AdvReac Type Severity Reaction Status Date / Time icosapent ethyl (From Allergy Diarrhea Verified 10/08/24 02:47 Vascepa) Sulfa (Sulfonamide Allergy rash Verified 10/08/24 02:47 Antibiotics) Vital Signs Vital Signs - 24 hr 10/07/24 23:03 10/08/24 00:14 10/08/24 01:32 Temperature 97.9 F 98.6 F Pulse Rate 106 H 101 H 100 Respiratory Rate 20 18 18 Blood Pressure 116/58 L 112/62 108/87 Pulse Oximetry 100 97 99 Oxygen Delivery Room Air 10/08/24 01:48 10/08/24 02:48 10/08/24 02:49 Temperature 98.8 F 98.1 F Pulse Rate 101 H 100 Respiratory Rate 18 18 Blood Pressure 113/72 117/55 L Pulse Oximetry 100 100 Oxygen Delivery Room Air 10/08/24 03:34 10/08/24 03:48 10/08/24 04:00 Temperature 98.1 F 98.1 F Pulse Rate 100 90 87 Respiratory Rate 18 18 Blood Pressure 117/55 L 121/58 L Pulse Oximetry 100 100 Oxygen Delivery 10/08/24 04:48 10/08/24 05:05 Temperature 97.0 F L 98.0 F Pulse Rate 87 96 Respiratory Rate 18 16 Blood Pressure 112/53 L 117/55 L Pulse Oximetry 99 98 Oxygen Delivery Exam 2 Const: General: cooperative, healthy appearing, comfortable, no acute distress and well developed Orientation/consciousness: oriented to person, oriented to place, oriented to time and patient oriented x3 HENMT: Head: normal to inspection, normocephalic and atraumatic Mouth: Yes Normal oral and palatal mucosa present and Yes moist mucous membranes Eyes: General: appearance normal, both eyes and all related structures C onjunctivae: conjunctivae normal Sclera: sclerae normal Pupils: Equal, round and reactive pupils present Neck: Neck: normal visual inspection Chest: Chest palpation & inspection: normal inspection of the chest Resp: Effort & Inspection: normal respiratory effort and able to speak in complete sentences Auscultation: clear to auscultation bilaterally Cardio: Jugular venous distension: no JVD Rate: regular rate Rhythm: r egular rhythm Heart sounds: S1 normal heart sound present and S2 normal heart sound present Other: HD tunnel cath GI: Inspection: distended GI Palp: Yes Soft to palpation, No Tenderness to palpation present (GI), No Guarding due to palpation present (GI) and Yes No hepatosplenomegaly present Auscultation: normal bowel sounds Rectal Exam: deferred Skin: General skin exam: normal color and no rashes or lesions noted W ounds: wounds noted Other: bruising Neuro: General: oriented to person, oriented to place, oriented to time and patient oriented x3 Cranial nerves: Yes Equal, round and reactive pupils present Speech: normal speech Extrem: General: normal to inspection and no clubbing, cyanosis or edema Psych: Appearance: grossly normal and well kempt Affect: normal affect Results Labs 10/08/24 06:05 10/08/24 05:11 Labs: Short CBC 10/07/24 10/08/24 Range/Units 23:10 06:05 WBC 5.6 5.2 (4.5-10.0) K/mm3 Hgb 6.2 L* D 6.9 L* (14.0-18.0) g/dL Hct 19.9 L* 21.6 L (42.0-52.0) % Plt Count 244 210 (150-375) k/mm3 BMP 10/07/24 10/08/24 10/08/24 23:10 05:11 05:11 Sodium 133 L 137 Cancelled Potassium 3.1 L 3.4 Chloride 96 L Carbon Dioxide 35 H BUN 24 H D Creatinine 4.72 H Glucose 109 Calcium 8.5 10/08/24 10/08/24 10/08/24 05:11 05:11 05:11 Sodium Potassium Cancelled Chloride 100 Cancelled Carbon Dioxide 32 H Cancelled BUN 34 H D Creatinine Glucose Calcium 10/08/24 10/08/24 10/08/24 05:11 05:11 05:11 Sodium Potassium Chloride Carbon Dioxide BUN Cancelled Creatinine 4.69 H Cancelled Glucose 89 Cancelled Calcium 8.3 L 10/08/24 05:11 Sodium Potassium Chloride Carbon Dioxide BUN Creatinine Glucose Calcium Cancelled Cardiac Enzymes 10/07/24 10/08/24 10/08/24 Range/Units 23:10 01:56 05:11 Troponin I 0.026 0.026 0.024 (0.000-0.034) ng/mL Liver Function 10/07/24 10/08/24 Range/Units 23:10 05:11 Total Bilirubin 0.5 0.8 (0.2-1.3) mg/dL AST 44 38 (17-59) U/L ALT 30 25 (6-50) U/L Alkaline Phosphatase 65 49 (38-126) U/L Albumin 3.3 L 2.9 L (3.5-5.1) g/dL
[2024-10-08] MEDS: PANTOPRAZOLE SODIUM IV 40 MG VIAL IV PUSH ×2 (08:47→21:07)
--- NOTE | 2024-10-08 13:38 | PC.NURSE ---
Called GI lab to clarify orders for EGD was informed that they would pass it along to the provider
--- NOTE | 2024-10-08 14:30 | P.CONNP_ITS ---
Assessment and Plan Assessment and plan (1) Acute renal failure on dialysis: Code(s): N17.9 - Acute kidney failure, unspecified; Z99.2 - Dependence on renal dialysis Status: Acute Assessment and Plan: * remains dialysis dependent at this time * interestingly, he is making some urine (he was anuric on last hospitalization) * plan HD tomorrow * continue Sat/Sat/Saturday dialysis schedule while hospitalized * follow electrolytes, volume status and clearance * monitor labs and UOP for possible renal recovery (2) GI bleed: Code(s): K92.2 - Gastrointestinal hemorrhage, unspecified Status: Acute Assessment and Plan: * as noted by history (melena) * Hgb on admission noted as well * PRBC transfusion per protocol (2 units transfused since admission) * GI consultation/recommendations * plan for EGD (3) Tachycardia: Code(s): R00.0 - Tachycardia, unspecified Status: Acute Assessment and Plan: * etiology?? -- due to anemia? * appears to have resolved * follow trend of vital signs (4) Hypertension: Code(s): I10 - Essential (primary) hypertension Status: Chronic Assessment and Plan: * reasonable control at this time * follow trend of hemodynamics (5) Anemia: Code(s): D64.9 - Anemia, unspecified Status: Acute Assessment and Plan: * due in part from ANNA MARIE and CKD * likely worsened by #2 and necessity of blood thinners for #5 * high dose Epogen with J=HD * follow trend of H/H (6) Coronary artery disease: Code(s): I25.10 - Atherosclerotic heart disease of [place] coronary artery without angina pectoris Status: Acute Assessment and Plan: * NSTEMI on hospitalization last month * status post PCI to 99% in stent restenoses of ostial LCX on 09/17/2024 * continue medical management * blood thinners on hold given #2 * continue supportive therapy I will continue to follow the patient with you while he remains hospitalized and make further recommendations as deemed necessary. Thank you for allowing me to participate in the care of this patient. 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 The patient states that the day before admission, he was in his usual state of health and had been feeling reasonably well. He has been routinely checking his blood pressure at home since his recent hospitalization [facility] for a non ST elevation HI and he was noted that although his blood pressure was stable, his heart rate was slightly on the higher side. We checked his blood pressure on the day of admission, he noted his heart rate was in the 120s which concerned him. In spite of the tachycardia, he was otherwise asymptomatic with regard to chest pain, shortness of breath, dizziness, lightheadedness, nausea, vomiting, or diarrhea. On further questioning he does report though that he has been having black tarry stools for last few days but did not think much of it at the time. As mentioned above, the patient was recently hospitalized here earlier last month with a non ST-elevation HI complicated by cardiogenic shock as well as acute kidney injury/acute renal failure requiring institution of renal replacement therapy/dialysis. He had been doing reasonably well since discharge up until the above symptoms led to his presentation to the emergency room. He has been compliant with his dialysis treatments as well as his medications since hospital discharge. Workup and evaluation emergency room demonstrated the patient be hemodynamically stable and in no acute distress. However, routine blood work was significant for hemoglobin of 6.2 when on his discharged from [facility], his hemoglobin was 9.3. His heart rate was relatively stable and he was otherwise hemodynamically intact. His chemistry was consistent with his known history of acute kidney injury requiring renal placement therapy without any critical electrolyte abnormalities. His chest x-ray demonstrated no acute pathology other than mild interstitial edema. Given his significant drop in hemoglobin coupled with his constellation of symptoms on presentation, he was admitted to the hospital for further evaluation and therapy. Since his admission, he has received 2 units of packed red blood cells and his hemoglobin appears to increment reasonably well. Renal consultation was requested due to his acute kidney injury/ acute renal failure requiring renal replacement therapy / dialysis. The patient is somewhat familiar to me as I took care of him doing his previous hospitalization here at [facility]. As already mentioned, during that hospital stay, his renal function deteriorated significantly to the point that he required renal replacement therapy / dialysis due to his and urea, critical electrolyte abnormalities with regard to hyperkalemia, significant metabolic acidosis, and the concerns for possible uremia. He was maintained on dialysis during his acute hospitalization and continued dialysis as an outpatient following hospital discharge. From a kidney perspective, he has been doing fairly well with outpatient renal replacement therapy / dialysis and interestingly, he is noted in increasing urine output in comparison to an urea when he was last hospitalized here at [facility]. 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 His last dialysis treatment was yesterday, 10/07/24, and was otherwise uneventful. Currently, at the time my evaluation, he appears to be in no acute distress. Review of Systems 2 Review of Systems: As per HPI. [facility] Past Medical History Medical History Occult blood in stools Acute on chronic anemia History of right common carotid artery stent placement Coronary artery disease Adenomatous colon polyp Hypertension Surgical History Surgical History History of percutaneous coronary intervention Social History Social History Smoking packs per day: 2 Smoking cigarettes per day: 40.0 Years smoked: 50 Smoking pack-years: 100.00 Smoking status: Former smoker Second hand tobacco smoke exposure: Yes Alcohol intake: former Alcohol use details: BEERS Substance use: never Substance use type: does not use Do You Feel Safe in your Home?: Yes Lack of Transportation: No Lack of Food: Never True Current Housing: I Have Housing Concerned About Future Housing: No Difficulty Paying Gas/Electric Bills: No Difficulty Paying for Meds: No Currently Unemployed: No Education: High School Diploma/GED Difficulty w/ Childcare or Family Care: No Living arrangements: with family Gender identity (if verbalized by the patient): Male Spiritual care concerns: No Meds Home Medications and Allergies Home Medications ?Medication ?Instructions ?Recorded ?Confirmed ?Type ascorbic acid (vitamin C) 500 mg 500 mg PO DAILY 02/06/20 10/08/24 History tablet folic acid 1 mg tablet 1 mg PO DAILY 02/06/20 10/08/24 History levothyroxine 100 mcg tablet 100 mcg PO DAILY 02/06/20 10/08/24 History (Synthroid) rosuvastatin 5 mg tablet 5 mg PO DAILY 05/22/22 10/08/24 History nifedipine 30 mg tablet,extended 30 mg PO DAILY 09/16/24 10/08/24 History release 24 hr ticagrelor 90 mg tablet (Brilinta) 90 mg PO Q12HR 30 days #60 tabs 09/20/24 10/08/24 Rx aspirin 81 mg chewable tablet 81 mg PO DAILY@0800 #30 tabs 09/24/24 10/08/24 Rx (Children's Aspirin) nitroglycerin 0.4 mg sublingual 0.4 mg sublingual Q5MIN PRN Chest 09/24/24 10/08/24 Rx tablet (Nitrostat) Pain #26 tabs pantoprazole 40 mg tablet,delayed 40 mg PO Q12HR #60 tabs 09/24/24 10/08/24 Rx release polyethylene glycol 3350 17 gram 17 g PO QAM #30 ea 09/24/24 10/08/24 Rx oral powder packet (Miralax) sennosides 8.6 mg-docusate sodium 1 tab PO HS #30 tabs 09/24/24 10/08/24 Rx 50 mg tablet (Senokot-S) isosorbide mononitrate 30 mg 30 mg PO DAILY 10/08/24 10/08/24 History tablet,extended release 24 hr losartan 100 mg tablet 100 mg PO DAILY 10/08/24 10/08/24 History Allergies Allergy/AdvReac Type Severity Reaction Status Date / Time icosapent ethyl (From Allergy Diarrhea Verified 10/08/24 02:47 Vascepa) Sulfa (Sulfonamide Allergy rash Verified 10/08/24 02:47 Antibiotics) Vital Signs Vital Signs Temp Pulse Resp BP Pulse Ox O2 Del Method 10/08/24 16:00 98.1 F 88 12 137/70 99 10/08/24 12:40 98.1 F 93 18 141/77 H 99 10/08/24 12:00 91 10/08/24 11:40 98.1 F 78 16 146/68 H 98 10/08/24 10:38 97.5 F L 96 16 143/76 H 100 10/08/24 09:40 97.2 F L 97 16 126/66 99 10/08/24 09:21 97 F L 96 16 141/71 H 100 10/08/24 08:00 94 10/08/24 08:00 Room Air 10/08/24 05:05 98.0 F 96 16 117/55 L 98 10/08/24 04:48 97.0 F L 87 18 112/53 L 99 10/08/24 04:00 87 10/08/24 03:48 98.1 F 90 18 121/58 L 100 10/08/24 03:34 98.1 F 100 18 117/55 L 100 10/08/24 02:49 Room Air 10/08/24 02:48 98.1 F 100 18 117/55 L 100 10/08/24 01:48 98.8 F 101 H 18 113/72 100 10/08/24 01:32 98.6 F 100 18 108/87 99 10/08/24 00:14 97.9 F 101 H 18 112/62 97 10/07/24 23:03 106 H 20 116/58 L 100 Room Air Exam 2 Narrative: GENERAL APPEARANCE: elderly but well developed well nourished male in no acute distress HEENT: normocephalic, atraumatic, normal conjunctiva and sclera, nares patient NECK: no lymphadenopathy, thyromegaly, or JVD MOUTH: normal lips, teeth, and gums CARDIOVASCULAR: RRR, normal S1 and S2, no rub detected RESPIRATORY: clear to auscultation ABDOMEN: soft, nontender, nondistended, positive bowel sounds present EXTREMITIES: no evidence of cyanosis, clubbing; trace edema NEUROLOGICAL: alert and oriented x 3; CN II - XII intact bilaterally; no focal deficits noted Results Lab Results 10/09/24 05:44 10/09/24 05:44 Lab results: Most recent lab results Calcium 8.3 mg/dL (8.4-10.2) L 10/08/24 05:11 Calcium Cancelled 10/08/24 05:11 Magnesium 1.7 mg/dL (1.6-2.3) 10/08/24 05:11 Magnesium Cancelled 10/08/24 05:11
[2024-10-08 14:35] LABS: Hematocrit 24.8 % (42.0-52.0); Hemoglobin 7.9 g/dL (14.0-18.0)
--- NOTE | 2024-10-08 14:35 | P.PNCROSS_ITS ---
Event Note Event Note Event Note: Patient seen and assessed by previous provider, follow-up evaluation patient c omfortable with no complaints still reporting dark tarry stools. Patient here for possible GI bleed recently placed on Brilinta and ASA after NSTEMI and new to hemodialysis. GI nephrology been consulted plan for NPO after midnight tonight and EGD tomorrow to evaluate for any possible upper GI bleed. Will continue to hold patient's Brilinta in ASA at this time pending results. Patient has received 2 units PRBC since admission. Last Hgb 7.9 will continue with Q6hr Hgb. Patient hemodynamically stable denied any chest pain shortness a breath, nausea, vomiting, abdominal pain or dizziness.
[2024-10-08 20:59] LABS: Hematocrit 22.8 % (42.0-52.0); Hemoglobin 7.4 g/dL (14.0-18.0)
[2024-10-09] VITALS (32 sets, daily range): BP systolic 92–147; BP diastolic 55–80; PULSE 69–102; RESP 15–21; TEMP 36.2–37; O2SAT 95–100
[2024-10-09] MEDS: LEVOTHYROXINE SODIUM 100 MCG TABLET PO (05:50)
[2024-10-09 05:54] LABS: Hematocrit 22.7 % (42.0-52.0); Hemoglobin 7.2 g/dL (14.0-18.0); Immature Granulocyte Percent A 0.2 % (0-0.5); Lymphocytes Absolute Auto 1.12 K/mm3 (0.9-3.2); Mean Corpuscular HGB Conc 31.7 g/dl (32-36); Mean Corpuscular Hemoglobin 29.8 pg (26-34); Mean Corpuscular Volume 93.8 fl (80-100); Nucleated Red Blood Cells Absolute Auto 0.000 K/mm3 (0.0-0.012); Nucleated Red Blood Cells Perc 0.0 % (0.0-0.2); Platelet Count Result 195 k/mm3 (150-375); Red Blood Count 2.42 M/mm3 (4.6-6.20); White Blood Count 5.3 K/mm3 (4.5-10.0)
[2024-10-09 06:18] LABS: Alanine Aminotransferase 23 U/L (6-50); Albumin Level 2.9 g/dL (3.5-5.1); Alkaline Phosphatase 54 U/L (38-126); Anion Gap 5 mmol/L (4-12); Aspartate Amino Transferase 37 U/L (17-59); Bilirubin,Total 0.7 mg/dL (0.2-1.3); Blood Urea Nitrogen 57 mg/dL (9-20); Calcium 8.6 mg/dL (8.4-10.2); Carbon Dioxide 29 mmol/L (22-30); Chloride 100 mmol/L (98-107); Estimated CRCL calculation 9 ml/min; Estimated Glomerular Filt Rate 9; Glucose 87 mg/dL (65-110); Magnesium 1.7 mg/dL (1.6-2.3); Potassium 3.5 mmol/L (3.4-5.0); Sodium 134 mmol/L (137-145); Total Protein 5.1 g/dL (6.3-8.2)
--- NOTE | 2024-10-09 08:12 | PM.IMPN ---
Progress Note: A&P Assessment and Plan (1) Anemia: Code(s): D64.9 - Anemia, unspecified Status: Acute Assessment and Plan: Hgb: 6.2 upon admission received 2 units PRBC since admission transfuse if <7 trend H&H 10/09: Hgb 7.2 GI consult Plan for EGD today per GI (2) GI bleed: Code(s): K92.2 - Gastrointestinal hemorrhage, unspecified Status: Acute Assessment and Plan: See above - suspect Upper GI Bleed Received aspirin 324 mg p.o. x1 in the ER Will hold antiplatelets and anticoagulants Received Protonix 80 mg IV x1 - Continue Protonix 40 mg IV b.i.d. GI consult EGD today - NPO Continue BID PPI and holding of anticoags (3) Acute renal failure on dialysis: Code(s): N17.9 - Acute kidney failure, unspecified; Z99.2 - Dependence on renal dialysis Status: Acute Assessment and Plan: Creatinine: 4.72, GFR: 12, BUN: 24 IV Fluids: Trend renal function Trend electrolytes, correct as needed Nephrology consult - appreciate further recommendations Subjective Date/time seen: 10/09/24 08:12 Interval history: 73-year-old male with history of CAD status post NSTEMI status post PCI to 99% in stent restenoses of ostial LCX on 09/17/2024, ESRD on HD MWF via left tunneled IJ catheter, anemia who presents to [facility] ER on 10/07/2024 reporting a fast heart rate. 10/09/2024 Patient sitting comfortably at time of exam. Undergoing dialysis at time of exam. Denies any pain or concerns at this time. Plan for EGD after dialysis. H/H stable at this time allow slightly lower than post-PRBC transfusion - continue monitoring daily labs. Review of Systems Review of Systems: All systems reviewed & are unremarkable except as noted in HPI and below (Subjective/HPI) Exam Const: General: comfortable and no acute distress HENMT: Mouth: Yes moist mucous membranes Eyes: Pupils: Equal, round and reactive pupils present Neck: Neck: supple Resp: Effort & Inspection: normal respiratory effort Auscultation: clear to auscultation bilaterally Cardio: Rate: regular rate Rhythm: regular rhythm Heart sounds: Murmur heart sound present GI: Inspection: non-distended Neuro: Cranial nerves: Yes Equal, round and reactive pupils present Motor exam (neuro): 5/5 motor strength present throughout Extrem: General: edema (Trace pitting edema bilateral lower extremities around the ankles) Objective Data Vital Signs Vital Signs: Vital Signs - 24 hr 10/08/24 09:21 10/08/24 09:40 10/08/24 10:38 Temperature 97 F L 97.2 F L 97.5 F L Pulse Rate 96 97 96 Respiratory Rate 16 16 16 Blood Pressure 141/71 H 126/66 143/76 H Pulse Oximetry 100 99 100 10/08/24 11:40 10/08/24 12:00 10/08/24 12:40 Temperature 98.1 F 98.1 F Pulse Rate 78 91 93 Respiratory Rate 16 18 Blood Pressure 146/68 H 141/77 H Pulse Oximetry 98 99 10/08/24 16:00 10/08/24 16:00 10/08/24 20:00 Temperature 98.1 F Pulse Rate 88 93 92 Respiratory Rate 12 Blood Pressure 137/70 Pulse Oximetry 99 10/08/24 21:08 10/09/24 00:00 10/09/24 04:00 Temperature 98 F Pulse Rate 81 81 73 Respiratory Rate 16 Blood Pressure 129/71 Pulse Oximetry 100 10/09/24 04:39 Temperature 98.1 F Pulse Rate 88 Respiratory Rate 18 Blood Pressure 132/75 Pulse Oximetry 100 Intake/Output Intake/Output: Intake & Output 10/06/24 10/07/24 10/08/24 10/09/24 23:59 23:59 23:59 23:59 Intake Total 1000 300 Balance 1000 300 Meds/Results Medications: Active Medications Generic Name Dose Route Start Last Admin Trade Name Freq PRN Reason Stop Dose Admin Acetaminophen 650 mg 10/08/24 10:26 Acetaminophen 325 Mg Tablet PO Q4H PRN Mild Pain (1-3) or Fever Ascorbic Acid 500 mg 10/09/24 09:00 Ascorbic Acid 500 Mg Tablet PO DAILY ROSALINDA Epoetin Brandon-epbx 20,000 units 10/09/24 18:00 Epoetin Brandon-Epbx 20,000 Units/Ml Vial IV PUSH 10/09/24 18:01 ONCE ONE Folic Acid 1 mg 10/09/24 09:00 Folic Acid 1 Mg Tablet PO DAILY ROSALINDA Albumin Human 50 mls @ 999 mls/hr 10/09/24 06:38 Albutein IVPB 11/08/24 06:37 Q10M PRN HYPOTENSION Isosorbide Mononitrate 30 mg 10/09/24 09:00 Isosorbide Mononitrate 30 Mg Tab.Er.24h PO DAILY [facility] Levothyroxine Sodium 100 mcg 10/09/24 06:30 10/09/24 05:50 Levothyroxine Sodium 100 Mcg Tablet PO 100 mcg DAILY@0630 ROSALINDA Administration Losartan Potassium 100 mg 10/09/24 09:00 Losartan Potassium 100 Mg Tablet PO DAILY [facility] Nifedipine 30 mg 10/09/24 09:00 Nifedipine 30 Mg Tab.Er.24 PO DAILY [facility] Nitroglycerin 0.4 mg 10/08/24 10:24 Nitroglycerin Sl 0.4 Mg Tablet SUBLINGUAL Q5MIN PRN Chest Pain Ondansetron HCl 4 mg 10/08/24 10:26 Ondansetron Inj 4 Mg/2 Ml Vial IV PUSH Q6H PRN Nausea And Vomiting Pantoprazole Sodium 40 mg 10/08/24 09:00 10/08/24 21:07 Pantoprazole Sodium Iv 40 Mg Vial IV PUSH 40 mg Q12HR ROSALINDA Administration Rosuvastatin Calcium 5 mg 10/09/24 09:00 Rosuvastatin 5 Mg Tablet PO DAILY [facility] Senna/Docusate Sodium 1 tab 10/08/24 21:00 10/08/24 21:07 Senna/Docusate Sodium Tablet PO Not Given HS [facility] Radiology Results: ITS Impressions Chest X-Ray 10/07/24 23:29 IMPRESSION: Left IJ dialysis catheter with a kink near its tip, correlate with function. Subsegmental right basilar atelectasis/consolidation. Mild interstitial edema versus chronic interstitial change. Labs Labs: Laboratory Results - last 24 hr 10/07/24 10/08/24 10/08/24 23:28 14:28 20:54 WBC RBC Hgb 7.9 L 7.4 L Hct 24.8 L 22.8 L MCV MCH MCHC RDW Plt Count MPV Immature Gran % (Auto) Neut % (Auto) Lymph % (Auto) [place] % (Auto) Eos % (Auto) Baso % (Auto) Lymph # (Auto) [place] # (Auto) Eos # (Auto) Baso # (Auto) Abs Immat Gran (auto) Absolute Neuts (auto) Absolute Nucleated RBC Nucleated RBC % Sodium Potassium Chloride Carbon Dioxide Anion Gap BUN Creatinine Estim Creat Clear Calc Estimated GFR Glucose Calcium Magnesium Total Bilirubin AST ALT Alkaline Phosphatase Total Protein Albumin Blood Type A Negative Antibody Screen Negative Crossmatch See Detail 10/09/24 05:44 WBC 5.3 RBC 2.42 L Hgb 7.2 L Hct 22.7 L MCV 93.8 MCH 29.8 MCHC 31.7 L RDW 16.7 H Plt Count 195 MPV 10.7 H Immature Gran % (Auto) 0.2 Neut % (Auto) 67.3 Lymph % (Auto) 21.1 [place] % (Auto) 6.0 Eos % (Auto) 4.3 Baso % (Auto) 1.1 Lymph # (Auto) 1.12 [place] # (Auto) 0.3 Eos # (Auto) 0.2 Baso # (Auto) 0.1 Abs Immat Gran (auto) 0.01 Absolute Neuts (auto) 3.6 Absolute Nucleated RBC 0.000 Nucleated RBC % 0.0 Sodium 134 L Potassium 3.5 Chloride 100 Carbon Dioxide 29 Anion Gap 5 BUN 57 H D Creatinine 6.41 H Estim Creat Clear Calc 9 Estimated GFR 9 L Glucose 87 Calcium 8.6 Magnesium 1.7 Total Bilirubin 0.7 AST 37 ALT 23 Alkaline Phosphatase 54 Total Protein 5.1 L Albumin 2.9 L Blood Type Antibody Screen Crossmatch Quality VTE Prophylaxis VTE prophylaxis: mechanical ordered
--- NOTE | 2024-10-09 08:55 | P.CDI_ITS ---
CDI Query Clarification Request Please clarify the status of the patient's anemia, if known. Anemia has been documented, please specify type of anemia if known: * Acute blood loss anemia * Chronic blood loss anemia * Anemia of chronic disease (CKD,neoplasm, other) * Aplastic anemia * Dilutional anemia * Iron Deficiency anemia * Pernicious anemia * Nutritional anemia (e.g., scorbutic anemia) * Other anemia * Unknown/unable to determine The medical chart reflects the followin) Anemia: Code(s): D64.9 - Anemia, unspecified Status: Acute Assessment and Plan: * Hgb: 6.2 upon admission * received 2 units PRBC since admission * transfuse if <7 * trend H&H * 10/09: Hgb 7.2 * GI consult * Plan for EGD today per GI (2) GI bleed: Code(s): K92.2 - Gastrointestinal hemorrhage, unspecified Status: Acute Assessment and Plan: * See above - suspect Upper GI Bleed * Received aspirin 324 mg p.o. x1 in the ER * Will hold antiplatelets and anticoagulants * Received Protonix 80 mg IV x1 - Continue Protonix 40 mg IV b.i.d Patient has received 2 units PRBC since admission. <Claudia Cho RN - Last Filed: 10/09/24 08:56> Clarified Diagnosis Clarified Diagnosis: Anemia - Origin Unknown/unable to determine <James Hudson PA-C - Last Filed: 10/09/24 13:51>
--- NOTE | 2024-10-09 08:55 | WPDCDIQUERY2 ---
CDI Query Clarification Request Please clarify the status of the patient's anemia, if known. Anemia has been documented, please specify type of anemia if known: Acute blood loss anemia Chronic blood loss anemia Anemia of chronic disease (CKD,neoplasm, other) Aplastic anemia Dilutional anemia Iron Deficiency anemia Pernicious anemia Nutritional anemia (e.g., scorbutic anemia) Other anemia Unknown/unable to determine The medical chart reflects the followin) Anemia: Code(s): D64.9 - Anemia, unspecified Status: Acute Assessment and Plan: Hgb: 6.2 upon admission received 2 units PRBC since admission transfuse if <7 trend H&H 10/09: Hgb 7.2 GI consult Plan for EGD today per GI (2) GI bleed: Code(s): K92.2 - Gastrointestinal hemorrhage, unspecified Status: Acute Assessment and Plan: See above - suspect Upper GI Bleed Received aspirin 324 mg p.o. x1 in the ER Will hold antiplatelets and anticoagulants Received Protonix 80 mg IV x1 - Continue Protonix 40 mg IV b.i.d Patient has received 2 units PRBC since admission. <Claudia Cho RN - Last Filed: 10/09/24 08:56> Clarified Diagnosis Clarified Diagnosis: Anemia - Origin Unknown/unable to determine <James Hudson PA-C - Last Filed: 10/09/24 13:51>
--- NOTE | 2024-10-09 09:27 | PM.PNNEP ---
Progress Note: A&P Assessment and Plan (1) Acute renal failure on dialysis: Code(s): N17.9 - Acute kidney failure, unspecified; Z99.2 - Dependence on renal dialysis Status: Acute Assessment and Plan: remains dialysis dependent at this time interestingly, he is making some urine (he was anuric on last hospitalization) HD today continue Sat/Sat/Saturday dialysis schedule while hospitalized follow electrolytes, volume status and clearance monitor labs and UOP for possible renal recovery (2) GI bleed: Code(s): K92.2 - Gastrointestinal hemorrhage, unspecified Status: Acute Assessment and Plan: as noted by history (melena) Hgb on admission noted as well PRBC transfusion per protocol (2 units transfused since admission) GI consultation/recommendations noted plan for EGD today for further evaluation (3) Tachycardia: Code(s): R00.0 - Tachycardia, unspecified Status: Acute Assessment and Plan: etiology?? -- due to anemia? appears to have resolved follow trend of vital signs (4) Hypertension: Code(s): I10 - Essential (primary) hypertension Status: Chronic Assessment and Plan: reasonable control at this time follow trend of hemodynamics (5) Anemia: Code(s): D64.9 - Anemia, unspecified Status: Acute Assessment and Plan: due in part from ANNA MARIE and CKD likely worsened by #2 and necessity of blood thinners for #5 high dose Epogen with J=HD follow trend of H/H (6) Coronary artery disease: Code(s): I25.10 - Atherosclerotic heart disease of [place] coronary artery without angina pectoris Status: Acute Assessment and Plan: NSTEMI on hospitalization last month status post PCI to 99% in stent restenoses of ostial LCX on 09/17/2024 continue medical management blood thinners on hold given #2 continue supportive therapy Will continue to follow. Subjective Date/time seen: 10/09/24 09:27 Interval history: Follow-up for acute kidney injury/acute renal failure (on chronic kidney disease) requiring [employer]/hemodialysis. Tolerating dialysis treatment at the time of my visit (seen on HD at 9:15am); no apparent distress voiced when seen; H/H better s/p PRBC transfusion (but would have expected incrementation to be higher after 2 units of blood); noted plans for EGD this afternoon. Exam Narrative: General: elderly but WD/WN male in NAD Heart: normal S1 and S2; no rub Lungs: clear to auscultation Abdomen: soft, nontender, nondistended, positive bowel sounds Extremities: no cyanosis or clubbing; no edema Skin: warm and dry Objective Data Vital Signs Vital Signs: Vital Signs Temp Pulse Resp BP Pulse Ox O2 Del Method 10/09/24 09:15 69 134/66 10/09/24 09:00 82 112/64 10/09/24 08:45 84 136/80 10/09/24 08:35 85 128/74 10/09/24 08:25 98.4 F 84 16 144/75 H 98 10/09/24 08:00 Room Air 10/09/24 04:39 98.1 F 88 18 132/75 100 10/09/24 04:00 73 10/09/24 00:00 81 10/08/24 21:08 98 F 81 16 129/71 100 10/08/24 20:00 92 10/08/24 16:00 93 10/08/24 16:00 98.1 F 88 12 137/70 99 10/08/24 12:40 98.1 F 93 18 141/77 H 99 10/08/24 12:00 91 10/08/24 11:40 98.1 F 78 16 146/68 H 98 Intake/Output Intake/Output: Intake & Output 10/06/24 10/07/24 10/08/24 10/09/24 23:59 23:59 23:59 23:59 Intake Total 1000 300 Balance 1000 300 Meds/Results Medications: Active Medications Generic Name Dose Route Start Last Admin Trade Name Megan PRN Reason Stop Dose Admin Acetaminophen 650 mg 10/08/24 10:26 Acetaminophen 325 Mg Tablet PO Q4H PRN Mild Pain (1-3) or Fever Ascorbic Acid 500 mg 10/09/24 09:00 Ascorbic Acid 500 Mg Tablet PO DAILY ROSALINDA Epoetin Brandon-epbx 20,000 units 10/09/24 18:00 Epoetin Brandon-Epbx 20,000 Units/Ml Vial IV PUSH 10/09/24 18:01 ONCE ONE Folic Acid 1 mg 10/09/24 09:00 Folic Acid 1 Mg Tablet PO DAILY ROSALINDA Albumin Human 50 mls @ 999 mls/hr 10/09/24 06:38 Albutein IVPB 11/08/24 06:37 Q10M PRN HYPOTENSION Isosorbide Mononitrate 30 mg 10/09/24 09:00 Isosorbide Mononitrate 30 Mg Tab.Er.24h PO DAILY [facility] Levothyroxine Sodium 100 mcg 10/09/24 06:30 10/09/24 05:50 Levothyroxine Sodium 100 Mcg Tablet PO 100 mcg DAILY@0630 [facility] Administration Losartan Potassium 100 mg 10/09/24 09:00 Losartan Potassium 100 Mg Tablet PO DAILY [facility] Nifedipine 30 mg 10/09/24 09:00 Nifedipine 30 Mg Tab.Er.24 PO DAILY [facility] Nitroglycerin 0.4 mg 10/08/24 10:24 Nitroglycerin Sl 0.4 Mg Tablet SUBLINGUAL Q5MIN PRN Chest Pain Ondansetron HCl 4 mg 10/08/24 10:26 Ondansetron Inj 4 Mg/2 Ml Vial IV PUSH Q6H PRN Nausea And Vomiting Pantoprazole Sodium 40 mg 10/08/24 09:00 10/09/24 10:11 Pantoprazole Sodium Iv 40 Mg Vial IV PUSH Not Given Q12HR [facility] Rosuvastatin Calcium 5 mg 10/09/24 09:00 Rosuvastatin 5 Mg Tablet PO DAILY [facility] Senna/Docusate Sodium 1 tab 10/08/24 21:00 10/08/24 21:07 Senna/Docusate Sodium Tablet PO Not Given [facility] Radiology Results: ITS Impressions Chest X-Ray 10/07/24 23:29 IMPRESSION: Left IJ dialysis catheter with a kink near its tip, correlate with function. Subsegmental right basilar atelectasis/consolidation. Mild interstitial edema versus chronic interstitial change. Labs Labs: Laboratory Tests 10/09/24 05:44 10/09/24 05:44 Calcium 8.6 Magnesium 1.7 Total Bilirubin 0.7 AST 37 ALT 23 Alkaline Phosphatase 54 Total Protein 5.1 L Albumin 2.9 L Crossmatch
[2024-10-09] MEDS: EPOETIN ALFA-EPBX 20,000 UNITS/ML VIAL 20000 UNITS IV PUSH (11:59)
--- NOTE | 2024-10-09 13:10 | P.PNAN_ITS ---
Anes - Initial Pre Proc Eval Procedure: Operation Date: 10/09/24 14:30 Proposed Procedures p Esophagogastroduodenoscopy - Álvaro Darby MD Date/Time: 10/09/24 13:10 Surgeon: Kathryn Enciso MD Pre Op Diagnosis: Anemia Patient Data Age: 73 Gender: M Height: 1.75 m Weight: 76.3 kg Last Vital Signs Temp 36.9 C 10/09/24 08:25 Pulse 85 10/09/24 10:45 Resp 16 10/09/24 08:25 BP 114/67 10/09/24 10:45 Pulse Ox 98 10/09/24 08:25 O2 Del Method Room Air 10/09/24 08:00 Allergies Allergy/AdvReac Type Severity Reaction Status Date / Time icosapent ethyl (From Allergy Diarrhea Verified 10/08/24 02:47 Vascepa) Sulfa (Sulfonamide Allergy rash Verified 10/08/24 02:47 Antibiotics) Home Medications ?Medication ?Instructions ?Recorded ?Confirmed ?Type ascorbic acid (vitamin C) 500 mg 500 mg PO DAILY 02/06/20 10/08/24 History tablet folic acid 1 mg tablet 1 mg PO DAILY 02/06/20 10/08/24 History levothyroxine 100 mcg tablet 100 mcg PO DAILY 02/06/20 10/08/24 History (Synthroid) rosuvastatin 5 mg tablet 5 mg PO DAILY 05/22/22 10/08/24 History nifedipine 30 mg tablet,extended 30 mg PO DAILY 09/16/24 10/08/24 History release 24 hr ticagrelor 90 mg tablet (Brilinta) 90 mg PO Q12HR 30 days #60 tabs 09/20/24 10/08/24 Rx aspirin 81 mg chewable tablet 81 mg PO DAILY@0800 #30 tabs 09/24/24 10/08/24 Rx (Children's Aspirin) nitroglycerin 0.4 mg sublingual 0.4 mg sublingual Q5MIN PRN Chest 09/24/24 10/08/24 Rx tablet (Nitrostat) Pain #26 tabs pantoprazole 40 mg tablet,delayed 40 mg PO Q12HR #60 tabs 09/24/24 10/08/24 Rx release polyethylene glycol 3350 17 gram 17 g PO QAM #30 ea 09/24/24 10/08/24 Rx oral powder packet (Miralax) sennosides 8.6 mg-docusate sodium 1 tab PO HS #30 tabs 09/24/24 10/08/24 Rx 50 mg tablet (Senokot-S) isosorbide mononitrate 30 mg 30 mg PO DAILY 10/08/24 10/08/24 History tablet,extended release 24 hr losartan 100 mg tablet 100 mg PO DAILY 10/08/24 10/08/24 History Laboratory Tests 10/08/24 10/08/24 10/09/24 14:28 20:54 05:44 WBC 5.3 K/mm3 (4.5-10.0) RBC 2.42 L M/mm3 (4.6-6.20) Hgb 7.9 L g/dL 7.4 L g/dL 7.2 L g/dL (14.0-18.0) (14.0-18.0) (14.0-18.0) Hct 24.8 L % 22.8 L % 22.7 L % (42.0-52.0) (42.0-52.0) (42.0-52.0) MCV 93.8 fl (80-100) MCH 29.8 pg (26-34) MCHC 31.7 L g/dl (32-36) RDW 16.7 H % (11.5-14.5) Plt Count 195 k/mm3 (150-375) MPV 10.7 H fl (7.4-10.4) Immature Gran % (Auto) 0.2 % (0-0.5) Neut % (Auto) 67.3 % (45.5-73.1) Lymph % (Auto) 21.1 % (18.3-44.2) [place] % (Auto) 6.0 % (2.6-8.5) Eos % (Auto) 4.3 % (0-4.4) Baso % (Auto) 1.1 % (0.2-1.2) Lymph # (Auto) 1.12 K/mm3 (0.9-3.2) [place] # (Auto) 0.3 K/mm3 (0.1-0.6) Eos # (Auto) 0.2 K/mm3 (0-0.3) Baso # (Auto) 0.1 K/mm3 (0.0-0.1) Abs Immat Gran (auto) 0.01 K/mm3 (0.00-0.031) Absolute Neuts (auto) 3.6 K/mm3 (1.3-6.7) Absolute Nucleated RBC 0.000 K/mm3 (0.0-0.012) Nucleated RBC % 0.0 % (0.0-0.2) Sodium 134 L mmol/L (137-145) Potassium 3.5 mmol/L (3.4-5.0) Chloride 100 mmol/L (98-107) Carbon Dioxide 29 mmol/L (22-30) Anion Gap 5 mmol/L (4-12) BUN 57 H D mg/dL (9-20) Creatinine 6.41 H mg/dL (0.7-1.3) Estim Creat Clear Calc 9 ml/min Estimated GFR 9 L (59 - ) Glucose 87 mg/dL (65-110) Calcium 8.6 mg/dL (8.4-10.2) Magnesium 1.7 mg/dL (1.6-2.3) Total Bilirubin 0.7 mg/dL (0.2-1.3) AST 37 U/L (17-59) ALT 23 U/L (6-50) Alkaline Phosphatase 54 U/L (38-126) Total Protein 5.1 L g/dL (6.3-8.2) Albumin 2.9 L g/dL (3.5-5.1) Patient hx anesthesia problems: none Family hx anesthesia problems: none Results Review: All pre-operative results and documents have been reviewed as part of the pre- operative evaluation. [facility] Past Medical History Medical History Occult blood in stools Acute on chronic anemia History of right common carotid artery stent placement Coronary artery disease Adenomatous colon polyp Hypertension Surgical History Surgical History History of percutaneous coronary intervention Social History Social History Smoking packs per day: 2 Smoking cigarettes per day: 40.0 Years smoked: 50 Smoking pack-years: 100.00 Smoking status: Former smoker Second hand tobacco smoke exposure: Yes Alcohol intake: former Alcohol use details: BEERS Substance use: never Substance use type: does not use Do You Feel Safe in your Home?: Yes Lack of Transportation: No Lack of Food: Never True Current Housing: I Have Housing Concerned About Future Housing: No Difficulty Paying Gas/Electric Bills: No Difficulty Paying for Meds: No Currently Unemployed: No Education: High School Diploma/GED Difficulty w/ Childcare or Family Care: No Living arrangements: with family Gender identity (if verbalized by the patient): Male Spiritual care concerns: No Anes - Eval Final PreProcedure Day of Procedure 10/09/24 13:10 Patient weight: normal Heart: regular rate and rhythm Lungs: decreased breath sounds Airway: Mallampati scale class II Neurological: alert and oriented Last oral intake: >/= 8 hours ASA classification: IV Emergent: no Anesthetic plan: proceed Anesthesia type and monitoring: general GIVS and standard monitoring Results Review: All pre-operative results and documents have been reviewed as part of the pre- operative evaluation. Informed Consent: The patient's anesthetic plan and its attendant risks and benefits were discussed with the patient/family/POA. Questions were solicited and answers provided to the satisfaction of the patient/family/POA.
[2024-10-09] MEDS: SODIUM CHLORIDE 0.9% IV 500 ML 10 ML IV CONT (13:20)
--- NOTE | 2024-10-09 14:30 | S_PTH ---
PATIENT: Derrek Diaz LOC: [id number] U#:[id number] AGE/SX: 73/M ROOM: 348 RE10/08/[address]: James Hudson PA-C : 1950 BED: 01 DIS: 10/13/2024 SPEC #: [id number] RECD: 10/12/24 08:02 STATUS: SABINA REElmer #: [id number] SARAH: 10/09/24 14:[address]: Álvaro Darby DEPT: [facility] Surgical RECD BY: [place]ia Chopra ENTERED: 10/12/24 08:02 SP TYPE: Surgical OTHR DR: MD Yasmin Hadley, VITA Villalpando MD Jennifer M.J. Clark, TOMMY Dlay MD Tissues: A - Gastric Biopsy Procedures: Hematoxylin and Eosin Stain Gross and Microscopic Level 4
[2024-10-09] MEDS: PANTOPRAZOLE 40 MG TABLET PO (20:59)
[2024-10-09 21:03] LABS: Hematocrit 27.1 % (42.0-52.0); Hemoglobin 8.4 g/dL (14.0-18.0)
[2024-10-10] VITALS (13 sets, daily range): BP systolic 111–138; BP diastolic 57–80; PULSE 70–99; RESP 16–18; TEMP 36.1–36.8; O2SAT 100
[2024-10-10 05:54] LABS: Hematocrit 21.8 % (42.0-52.0); Immature Granulocyte Percent A 0.7 % (0-0.5); Lymphocytes Absolute Auto 0.88 K/mm3 (0.9-3.2); Mean Corpuscular HGB Conc 30.3 g/dl (32-36); Mean Corpuscular Hemoglobin 29.9 pg (26-34); Mean Corpuscular Volume 98.6 fl (80-100); Nucleated Red Blood Cells Absolute Auto 0.000 K/mm3 (0.0-0.012); Nucleated Red Blood Cells Perc 0.0 % (0.0-0.2); Platelet Count Result 173 k/mm3 (150-375); Red Blood Count 2.21 M/mm3 (4.6-6.20); White Blood Count 4.6 K/mm3 (4.5-10.0)
[2024-10-10] MEDS: LEVOTHYROXINE SODIUM 100 MCG TABLET PO (05:54)
[2024-10-10 05:58] LABS: Hemoglobin 6.6 g/dL (14.0-18.0)
[2024-10-10 06:27] LABS: Alanine Aminotransferase 27 U/L (6-50); Albumin Level 3.1 g/dL (3.5-5.1); Alkaline Phosphatase 59 U/L (38-126); Anion Gap 5 mmol/L (4-12); Aspartate Amino Transferase 46 U/L (17-59); Bilirubin,Total 0.7 mg/dL (0.2-1.3); Blood Urea Nitrogen 28 mg/dL (9-20); Calcium 8.7 mg/dL (8.4-10.2); Carbon Dioxide 27 mmol/L (22-30); Chloride 102 mmol/L (98-107); Estimated CRCL calculation 13 ml/min; Estimated Glomerular Filt Rate 14; Glucose 101 mg/dL (65-110); Magnesium 1.9 mg/dL (1.6-2.3); Potassium 3.6 mmol/L (3.4-5.0); Sodium 134 mmol/L (137-145); Total Protein 5.5 g/dL (6.3-8.2)
--- NOTE | 2024-10-10 08:06 | P.PNIM_ITS ---
Progress Note: A&P Assessment and Plan (1) Anemia: Code(s): D64.9 - Anemia, unspecified Status: Acute Assessment and Plan: * Hgb: 6.2 upon admission * received 2 units PRBC since admission * transfuse if <7 * trend H&H * GI consult * EGD - Evidence of gastritis w/o active bleeding * 10/10: Hgb 6.6 * Will transfuse 1 unit PRBC * Heme/onc consult - pt follows with Dr. Paniagua in the outpt setting (2) GI bleed: Code(s): K92.2 - Gastrointestinal hemorrhage, unspecified Status: Acute Assessment and Plan: * See above - suspect Upper GI Bleed * Received aspirin 324 mg p.o. x1 in the ER * Will hold antiplatelets and anticoagulants * Received Protonix 80 mg IV x1 - Continue Protonix 40 mg IV b.i.d. * GI consult * EGD - Evidence of gastritis w/o active bleeding * Continue BID PPI and holding of anticoags * Will appreciate further recommendations from GI (3) Acute renal failure on dialysis: Code(s): N17.9 - Acute kidney failure, unspecified; Z99.2 - Dependence on renal dialysis Status: Acute Assessment and Plan: * Creatinine: 4.72, GFR: 12, BUN: 24 * IV Fluids: * Trend renal function * Trend electrolytes, correct as needed * Nephrology consult - appreciate further recommendations * 10/10: Cr 4.3, BUN 28 Subjective Date/time seen: 10/10/24 08:06 Interval history: 73-year-old male with history of CAD status post NSTEMI status post PCI to 99% in stent restenoses of ostial LCX on 09/17/2024, ESRD on HD MWF via left tunneled IJ catheter, anemia who presents to [facility] ER on 10/07/2024 reporting a fast heart rate. 10/10/2024 Patient sitting comfortably at time of exam. EGD yesterday, evidence of gastritis but no acute bleeding, continue PPI daily and to resume blood thinners per Cardiology. Patient otherwise appears stable, on morning labs had hemoglo bin of 6.6, receiving 1 unit PRBC at time of exam. Currently patient does feel weak, short of breath, or have any chest pain nausea/vomiting or abdominal pain. Will look for further recommendations from GI, will consult heme/Onc as patient follows Dr. Paniagua in outpatient setting. Review of Systems Review of Systems: All systems reviewed & are unremarkable except as noted in HPI and below (Subjective/HPI) Exam Const: General: comfortable and no acute distress HENMT: Mouth: Yes moist mucous membranes Eyes: Pupils: Equal, round and reactive pupils present Neck: Neck: supple Resp: Effort & Inspection: normal respiratory effort Auscultation: clear to auscultation bilaterally Cardio: Rate: regular rate Rhythm: regular rhythm Heart sounds: Murmur heart sound present GI: Inspection: non-distended Neuro: Cranial nerves: Yes Equal, round and reactive pupils present Motor exam (neuro): 5/5 motor strength present throughout Extrem: General: edema (Trace pitting edema bilateral lower extremities around the ankles) Objective Data Vital Signs Vital Signs: Vital Signs - 24 hr 10/09/24 08:25 10/09/24 08:35 10/09/24 08:45 Temperature 98.4 F Pulse Rate 84 85 84 Respiratory Rate 16 Blood Pressure 144/75 H 128/74 136/80 Pulse Oximetry 98 Oxygen Delivery 10/09/24 09:00 10/09/24 09:15 10/09/24 09:30 Temperature Pulse Rate 82 69 74 Respiratory Rate Blood Pressure 112/64 134/66 120/76 Pulse Oximetry Oxygen Delivery 10/09/24 09:45 10/09/24 10:00 10/09/24 10:15 Temperature Pulse Rate 85 84 86 Respiratory Rate Blood Pressure 118/71 138/72 123/73 Pulse Oximetry Oxygen Delivery 10/09/24 10:30 10/09/24 10:45 10/09/24 11:00 Temperature Pulse Rate 84 85 85 Respiratory Rate Blood Pressure 113/74 114/67 125/69 Pulse Oximetry Oxygen Delivery 10/09/24 11:15 10/09/24 11:30 10/09/24 11:45 Temperature Pulse Rate 89 84 84 Respiratory Rate Blood Pressure 108/63 122/72 115/72 Pulse Oximetry Oxygen Delivery 10/09/24 12:00 10/09/24 12:00 10/09/24 12:11 Temperature Pulse Rate 84 82 86 Respiratory Rate Blood Pressure 110/71 126/79 Pulse Oximetry Oxygen Delivery 10/09/24 12:25 10/09/24 12:59 10/09/24 13:17 Temperature 98.2 F 97.7 F Pulse Rate 88 95 Respiratory Rate 16 18 Blood Pressure 122/67 147/76 H Pulse Oximetry 99 98 95 Oxygen Delivery Room Air Room Air 10/09/24 14:31 10/09/24 14:41 10/09/24 14:50 Temperature Pulse Rate 84 82 83 Respiratory Rate 16 15 21 H Blood Pressure 96/61 L 92/55 L 120/71 Pulse Oximetry 99 99 100 Oxygen Delivery Room Air Room Air Room Air 10/09/24 16:00 10/09/24 16:37 10/09/24 20:00 Temperature 97.1 F L Pulse Rate 87 101 H 102 H Respiratory Rate 18 Blood Pressure 134/76 Pulse Oximetry 99 Oxygen Delivery 10/09/24 20:58 10/10/24 00:00 10/10/24 04:00 Temperature 97.7 F Pulse Rate 94 99 88 Respiratory Rate 18 Blood Pressure 147/77 H Pulse Oximetry 100 Oxygen Delivery 10/10/24 05:55 Temperature 98.1 F Pulse Rate 91 Respiratory Rate 18 Blood Pressure 138/64 Pulse Oximetry 100 Oxygen Delivery Intake/Output Intake/Output: Intake & Output 10/07/24 10/08/24 10/09/24 10/10/24 23:59 23:59 23:59 23:59 Intake Total 1000 830 450 Output Total 1500 Balance 1000 -670 450 Meds/Results Medications: Active Medications Generic Name Dose Route Start Last Admin Trade Name Freq PRN Reason Stop Dose Admin Acetaminophen 650 mg 10/08/24 10:26 Acetaminophen 325 Mg Tablet PO Q4H PRN Mild Pain (1-3) or Fever Ascorbic Acid 500 mg 10/09/24 09:00 10/09/24 17:34 Ascorbic Acid 500 Mg Tablet PO Not Given DAILY ROSALINDA Folic Acid 1 mg 10/09/24 09:00 10/09/24 17:34 Folic Acid 1 Mg Tablet PO Not Given DAILY ROSALINDA Albumin Human 50 mls @ 999 mls/hr 10/09/24 06:38 Albutein IVPB 11/08/24 06:37 Q10M PRN HYPOTENSION Sodium Chloride 250 mls @ 30 mls/hr 10/10/24 06:52 Normal Saline Iv IV CONT 10/10/24 15:11 .Q8H20M STA Sodium Chloride 250 mls @ 30 mls/hr 10/10/24 08:05 Normal Saline Iv IV CONT 10/10/24 16:24 .Q8H20M STA Isosorbide Mononitrate 30 mg 10/09/24 09:00 10/09/24 17:34 Isosorbide Mononitrate 30 Mg Tab.Er.24h PO Not Given DAILY ROSALINDA Levothyroxine Sodium 100 mcg 10/09/24 06:30 10/10/24 05:54 Levothyroxine Sodium 100 Mcg Tablet PO 100 mcg DAILY@0630 ROSALINDA Administration Losartan Potassium 100 mg 10/09/24 09:00 10/09/24 17:34 Losartan Potassium 100 Mg Tablet PO Not Given DAILY ROSALINDA Nifedipine 30 mg 10/09/24 09:00 10/09/24 17:34 Nifedipine 30 Mg Tab.Er.24 PO Not Given DAILY ROSALINDA Nitroglycerin 0.4 mg 10/08/24 10:24 Nitroglycerin Sl 0.4 Mg Tablet SUBLINGUAL Q5MIN PRN Chest Pain Ondansetron HCl 4 mg 10/08/24 10:26 Ondansetron Inj 4 Mg/2 Ml Vial IV PUSH Q6H PRN Nausea And Vomiting Pantoprazole Sodium 40 mg 10/09/24 21:00 10/09/24 20:59 Pantoprazole 40 Mg Tablet PO 40 mg Q12HR ROSALINDA Administration Rosuvastatin Calcium 5 mg 10/09/24 09:00 10/09/24 17:34 Rosuvastatin 5 Mg Tablet PO Not Given DAILY [facility] Senna/Docusate Sodium 1 tab 10/08/24 21:00 10/09/24 20:59 Senna/Docusate Sodium Tablet PO Not Given HS [facility] Radiology Results: ITS Impressions Chest X-Ray 10/07/24 23:29 IMPRESSION: Left IJ dialysis catheter with a kink near its tip, correlate with function. Subsegmental right basilar atelectasis/consolidation. Mild interstitial edema versus chronic interstitial change. Labs Labs: Laboratory Results - last 24 hr 10/07/24 10/09/24 10/10/24 23:28 20:56 05:41 WBC 4.6 RBC 2.21 L Hgb 8.4 L 6.6 L* Hct 27.1 L 21.8 L MCV 98.6 D MCH 29.9 MCHC 30.3 L RDW 16.7 H Plt Count 173 MPV 10.3 Immature Gran % (Auto) 0.7 H Neut % (Auto) 65.9 Lymph % (Auto) 19.1 [place] % (Auto) 8.0 Eos % (Auto) 4.8 H Baso % (Auto) 1.5 H Lymph # (Auto) 0.88 L [place] # (Auto) 0.4 Eos # (Auto) 0.2 Baso # (Auto) 0.1 Abs Immat Gran (auto) 0.03 Absolute Neuts (auto) 3.0 Absolute Nucleated RBC 0.000 Nucleated RBC % 0.0 Sodium 134 L Potassium 3.6 Chloride 102 Carbon Dioxide 27 Anion Gap 5 BUN 28 H D Creatinine 4.30 H Estim Creat Clear Calc 13 Estimated GFR 14 L Glucose 101 Calcium 8.7 Magnesium 1.9 Total Bilirubin 0.7 AST 46 ALT 27 Alkaline Phosphatase 59 Total Protein 5.5 L Albumin 3.1 L Blood Type A Negative Antibody Screen Negative Crossmatch See Detail Quality VTE Prophylaxis VTE prophylaxis: mechanical ordered
[2024-10-10] MEDS: ASCORBIC ACID 500 MG TABLET PO (08:08)
[2024-10-10] MEDS: PANTOPRAZOLE 40 MG TABLET PO ×2 (08:08→20:21)
[2024-10-10] MEDS: FOLIC ACID 1 MG TABLET PO (08:09)
[2024-10-10] MEDS: LOSARTAN POTASSIUM 100 MG TABLET PO (08:09)
[2024-10-10] MEDS: ROSUVASTATIN 5 MG TABLET PO (08:09)
[2024-10-10] MEDS: ISOSORBIDE MONONITRATE 30 MG TAB.ER.24H PO (08:09)
[2024-10-10] MEDS: SODIUM CHLORIDE 0.9% IV 250 ML 30 ML IV CONT (08:11)
--- NOTE | 2024-10-10 10:16 | P.PNNP_ITS ---
Progress Note: A&P Assessment and Plan (1) Acute renal failure on dialysis: Code(s): N17.9 - Acute kidney failure, unspecified; Z99.2 - Dependence on renal dialysis Status: Acute Assessment and Plan: * remains dialysis dependent at this time * interestingly, he is making some urine (he was anuric on last hospitalization) * HD yesterday * continue Sat/Sat/Saturday dialysis schedule while hospitalized * follow electrolytes, volume status and clearance * monitor labs and UOP for possible renal recovery (2) GI bleed: Code(s): K92.2 - Gastrointestinal hemorrhage, unspecified Status: Acute Assessment and Plan: * suspected based on admission history (melena) * low Hgb on admission noted as well * GI recommendations noted: * s/p EGD: no bleeding lesions; mild gastritis that was erythematous, edematous, and with erosive changes * PRBC transfusion per protocol * 3 units transfused since admission * Hem/Onc consulted (3) Tachycardia: Code(s): R00.0 - Tachycardia, unspecified Status: Acute Assessment and Plan: * etiology?? -- due to anemia? * appears to have resolved * follow trend of vital signs (4) Hypertension: Code(s): I10 - Essential (primary) hypertension Status: Chronic Assessment and Plan: * reasonable control at this time * follow trend of hemodynamics (5) Anemia: Code(s): D64.9 - Anemia, unspecified Status: Acute Assessment and Plan: * due in part from ANNA MARIE and CKD * possibly worsened by #2 and necessity of blood thinners for #6 * high dose Epogen with HD * follow trend of H/H * Hem/Onc consulted (6) Coronary artery disease: Code(s): I25.10 - Atherosclerotic heart disease of three affiliated coronary artery without angina pectoris Status: Acute Assessment and Plan: * NSTEMI on hospitalization last month * status post PCI to 99% in-stent restenoses of ostial LCX on 09/17/2024 * continue medical management * blood thinners on hold given #2 * continue supportive therapy Will continue to follow. 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 Tolerated dialysis treatment yesterday without any issue or problems; s/p EGD with findings noted; however, drop in H/H by AM labs again so getting PRBC transfusion today; no apparent distress voiced at the time of my visit; discussed with at bedside. Exam Narrative: General: elderly but WD/WN male in NAD Heart: normal S1 and S2; no rub Lungs: clear to auscultation Abdomen: soft, nontender, nondistended, positive bowel sounds Extremities: no cyanosis or clubbing; no edema Skin: warm and intact Objective Data Vital Signs Vital Signs: Vital Signs Temp Pulse Resp BP Pulse Ox O2 Del Method 10/10/24 09:42 98.3 F 96 18 111/74 100 10/10/24 08:42 97.1 F L 84 18 133/62 100 10/10/24 08:24 97.1 F L 87 18 129/67 100 10/10/24 08:10 Room Air 10/10/24 08:05 89 10/10/24 05:55 98.1 F 91 18 138/64 100 10/10/24 04:00 88 10/10/24 00:00 99 10/09/24 20:58 97.7 F 94 18 147/77 H 100 10/09/24 20:00 102 H 10/09/24 16:37 97.1 F L 101 H 18 134/76 99 10/09/24 16:00 87 10/09/24 14:50 83 21 H 120/71 100 Room Air 10/09/24 14:41 82 15 92/55 L 99 Room Air 10/09/24 14:31 84 16 96/61 L 99 Room Air 10/09/24 13:17 97.7 F 95 18 147/76 H 95 Room Air Intake/Output Intake/Output: Intake & Output 10/07/24 10/08/24 10/09/24 10/10/24 23:59 23:59 23:59 23:59 Intake Total 5243 602 2559 Output Total 1500 Balance 1000 -670 1280 Meds/Results Medications: Active Medications Generic Name Dose Route Start Last Admin Trade Name Megan PRN Reason Stop Dose Admin Acetaminophen 650 mg 10/08/24 10:26 Acetaminophen 325 Mg Tablet PO Q4H PRN Mild Pain (1-3) or Fever Ascorbic Acid 500 mg 10/09/24 09:00 10/10/24 08:08 Ascorbic Acid 500 Mg Tablet PO 500 mg DAILY ROSALINDA Administration Folic Acid 1 mg 10/09/24 09:00 10/10/24 08:09 Folic Acid 1 Mg Tablet PO 1 mg DAILY ROSALINDA Administration Albumin Human 50 mls @ 999 mls/hr 10/09/24 06:38 Albutein IVPB 11/08/24 06:37 Q10M PRN HYPOTENSION Sodium Chloride 250 mls @ 30 mls/hr 10/10/24 06:52 10/10/24 08:11 Normal Saline Iv IV CONT 10/10/24 15:11 30 mls/hr .Q8H20M STA Administration Isosorbide Mononitrate 30 mg 10/09/24 09:00 10/10/24 08:09 Isosorbide Mononitrate 30 Mg Tab.Er.24h PO 30 mg DAILY ROSALINDA Administration Levothyroxine Sodium 100 mcg 10/09/24 06:30 10/10/24 05:54 Levothyroxine Sodium 100 Mcg Tablet PO 100 mcg DAILY@0630 ROSALINDA Administration Losartan Potassium 100 mg 10/09/24 09:00 10/10/24 08:09 Losartan Potassium 100 Mg Tablet PO 100 mg DAILY ROSALINDA Administration Nifedipine 30 mg 10/09/24 09:00 10/10/24 08:08 Nifedipine 30 Mg Tab.Er.24 PO 30 mg DAILY ROSALINDA Administration Nitroglycerin 0.4 mg 10/08/24 10:24 Nitroglycerin Sl 0.4 Mg Tablet SUBLINGUAL Q5MIN PRN Chest Pain Ondansetron HCl 4 mg 10/08/24 10:26 Ondansetron Inj 4 Mg/2 Ml Vial IV PUSH Q6H PRN Nausea And Vomiting Pantoprazole Sodium 40 mg 10/09/24 21:00 10/10/24 08:08 Pantoprazole 40 Mg Tablet PO 40 mg Q12HR ROSALINDA Administration Rosuvastatin Calcium 5 mg 10/09/24 09:00 10/10/24 08:09 Rosuvastatin 5 Mg Tablet PO 5 mg DAILY ROSALINDA Administration Senna/Docusate Sodium 1 tab 10/08/24 21:00 10/09/24 20:59 Senna/Docusate Sodium Tablet PO Not Given HS COUNTS INCLUDE 234 BEDS AT [facility] Radiology Results: ITS Impressions Chest X-Ray 10/07/24 23:29 IMPRESSION: Left IJ dialysis catheter with a kink near its tip, correlate with function. Subsegmental right basilar atelectasis/consolidation. Mild interstitial edema versus chronic interstitial change. Labs Labs: Laboratory Results - last 24 hr 10/10/24 05:41 WBC 4.6 Hgb 6.6 L* Hct 21.8 L Plt Count 173 Sodium 134 L Potassium 3.6 Chloride 102 Carbon Dioxide 27 Anion Gap 5 BUN 28 H D Creatinine 4.30 H Estim Creat Clear Calc 13 Estimated GFR 14 L Glucose 101 Calcium 8.7 Magnesium 1.9 Total Bilirubin 0.7 AST 46 ALT 27 Alkaline Phosphatase 59 Total Protein 5.5 L Albumin 3.1 L
[2024-10-10 12:59] LABS: Hematocrit 26.7 % (42.0-52.0); Hemoglobin 8.3 g/dL (14.0-18.0)
--- NOTE | 2024-10-10 13:13 | WPDANESPN ---
Anes - Prog Note Post-Op Date/Time: 10/10/24 13:13 Cardiovascular status: normal Respiratory status: normal Airway patency: baseline Mental status: baseline Post-Op hydration status: normal Vital Signs: Last Vital Signs Temp 96.9 F L 10/10/24 11:40 Pulse 70 10/10/24 11:40 Resp 18 10/10/24 11:40 BP 121/57 L 10/10/24 11:40 Pulse Ox 100 10/10/24 11:40 O2 Del Method Room Air 10/10/24 08:10 Pain Score (VAS): 0 I/O: Intake & Output 10/09/24 10/10/24 10/10/24 23:59 07:59 15:59 Intake Total 480 450 830 Balance 480 450 830 Laboratory Tests 10/10/24 12:53 10/10/24 05:41 10/07/24 10/09/24 10/10/24 23:28 20:56 05:41 WBC 4.6 RBC 2.21 L Hgb 8.4 L 6.6 L* Hct 27.1 L 21.8 L MCV 98.6 D MCH 29.9 MCHC 30.3 L RDW 16.7 H Plt Count 173 MPV 10.3 Immature Gran % (Auto) 0.7 H Neut % (Auto) 65.9 Lymph % (Auto) 19.1 [place] % (Auto) 8.0 Eos % (Auto) 4.8 H Baso % (Auto) 1.5 H Lymph # (Auto) 0.88 L [place] # (Auto) 0.4 Eos # (Auto) 0.2 Baso # (Auto) 0.1 Abs Immat Gran (auto) 0.03 Absolute Neuts (auto) 3.0 Absolute Nucleated RBC 0.000 Nucleated RBC % 0.0 Sodium 134 L Potassium 3.6 Chloride 102 Carbon Dioxide 27 Anion Gap 5 BUN 28 H D Creatinine 4.30 H Estim Creat Clear Calc 13 Estimated GFR 14 L Glucose 101 Calcium 8.7 Magnesium 1.9 Total Bilirubin 0.7 AST 46 ALT 27 Alkaline Phosphatase 59 Total Protein 5.5 L Albumin 3.1 L Blood Type A Negative Antibody Screen Negative Crossmatch See Detail 10/10/24 12:53 WBC RBC Hgb 8.3 L Hct 26.7 L MCV MCH MCHC RDW Plt Count MPV Immature Gran % (Auto) Neut % (Auto) Lymph % (Auto) [place] % (Auto) Eos % (Auto) Baso % (Auto) Lymph # (Auto) [place] # (Auto) Eos # (Auto) Baso # (Auto) Abs Immat Gran (auto) Absolute Neuts (auto) Absolute Nucleated RBC Nucleated RBC % Sodium Potassium Chloride Carbon Dioxide Anion Gap BUN Creatinine Estim Creat Clear Calc Estimated GFR Glucose Calcium Magnesium Total Bilirubin AST ALT Alkaline Phosphatase Total Protein Albumin Blood Type Antibody Screen Crossmatch Post-procedural complaints: none Patient Feedback: Patient satisfied with anesthetic care.
--- NOTE | 2024-10-10 14:38 | P.PNGI_ITS ---
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 patient his last colonoscopy 2022 (2) Acute on chronic anemia: Code(s): D64.9 - Anemia, unspecified Status: Acute Assessment and Plan: on epo also ppi because gastritis (3) NSTEMI (non-ST elevated myocardial infarction): Code(s): I21.4 - Non-ST elevation (NSTEMI) myocardial infarction Status: Acute (4) Acute renal failure on dialysis: Code(s): N17.9 - Acute kidney failure, unspecified; Z99.2 - Dependence on renal dialysis Status: Acute (5) GI bleed: Code(s): K92.2 - Gastrointestinal hemorrhage, unspecified Status: Acute Subjective Date/time seen: 10/10/24 14:38 Interval history: egd only mild erosive gastritis but no signs of bleeding noted that hgb dropped and required blood transfusion he denies obvious gib he is comfortable at bedside Review of Systems Review of Systems: All systems reviewed & are unremarkable except as noted in HPI and below Exam Const: General: comfortable and no acute distress HENMT: Mouth: Yes moist mucous membranes Eyes: Pupils: Equal, round and reactive pupils present Neck: Neck: supple Resp: Effort & Inspection: normal respiratory effort Auscultation: clear to auscultation bilaterally Cardio: Rate: regular rate Rhythm: regular rhythm Heart sounds: Murmur heart sound present GI: Inspection: non-distended GI Palp: Yes Soft to palpation Auscultation: normal bowel sounds Skin: General skin exam: normal color Neuro: Cranial nerves: Yes Equal, round and reactive pupils present Motor exam (neuro): 5/5 motor strength present throughout Extrem: General: edema (Trace pitting edema bilateral lower extremities around the ankles) Psych: Affect: normal affect Objective Data Vital Signs Vital Signs: Vital Signs - 24 hr 10/09/24 14:41 10/09/24 14:50 10/09/24 16:00 Temperature Pulse Rate 82 83 87 Respiratory Rate 15 21 H Blood Pressure 92/55 L 120/71 Pulse Oximetry 99 100 Oxygen Delivery Room Air Room Air 10/09/24 16:37 10/09/24 20:00 10/09/24 20:58 Temperature 97.1 F L 97.7 F Pulse Rate 101 H 102 H 94 Respiratory Rate 18 18 Blood Pressure 134/76 147/77 H Pulse Oximetry 99 100 Oxygen Delivery 10/10/24 00:00 10/10/24 04:00 10/10/24 05:55 Temperature 98.1 F Pulse Rate 99 88 91 Respiratory Rate 18 Blood Pressure 138/64 Pulse Oximetry 100 Oxygen Delivery 10/10/24 08:05 10/10/24 08:10 10/10/24 08:24 Temperature 97.1 F L Pulse Rate 89 87 Respiratory Rate 18 Blood Pressure 129/67 Pulse Oximetry 100 Oxygen Delivery Room Air 10/10/24 08:42 10/10/24 09:42 10/10/24 10:42 Temperature 97.1 F L 98.3 F 98.1 F Pulse Rate 84 96 81 Respiratory Rate 18 18 16 Blood Pressure 133/62 111/74 119/60 Pulse Oximetry 100 100 100 Oxygen Delivery 10/10/24 11:40 Temperature 96.9 F L Pulse Rate 70 Respiratory Rate 18 Blood Pressure 121/57 L Pulse Oximetry 100 Oxygen Delivery Intake/Output Intake/Output: Intake & Output 10/07/24 10/08/24 10/09/24 10/10/24 23:59 23:59 23:59 23:59 Intake Total 6646 036 7513 Output Total 1500 Balance 1000 -670 1280 Meds/Results Medications: Active Medications Generic Name Dose Route Start Last Admin Trade Name Freq PRN Reason Stop Dose Admin Acetaminophen 650 mg 10/08/24 10:26 Acetaminophen 325 Mg Tablet PO Q4H PRN Mild Pain (1-3) or Fever Ascorbic Acid 500 mg 10/09/24 09:00 10/10/24 08:08 Ascorbic Acid 500 Mg Tablet PO 500 mg DAILY ROSALINDA Administration Folic Acid 1 mg 10/09/24 09:00 10/10/24 08:09 Folic Acid 1 Mg Tablet PO 1 mg DAILY ROSALINDA Administration Albumin Human 50 mls @ 999 mls/hr 10/09/24 06:38 Albutein IVPB 11/08/24 06:37 Q10M PRN HYPOTENSION Sodium Chloride 250 mls @ 30 mls/hr 10/10/24 06:52 10/10/24 08:11 Normal Saline Iv IV CONT 10/10/24 15:11 30 mls/hr .Q8H20M STA Administration Isosorbide Mononitrate 30 mg 10/09/24 09:00 10/10/24 08:09 Isosorbide Mononitrate 30 Mg Tab.Er.24h PO 30 mg DAILY ROSALINDA Administration Levothyroxine Sodium 100 mcg 10/09/24 06:30 10/10/24 05:54 Levothyroxine Sodium 100 Mcg Tablet PO 100 mcg DAILY@0630 ROSALINDA Administration Losartan Potassium 100 mg 10/09/24 09:00 10/10/24 08:09 Losartan Potassium 100 Mg Tablet PO 100 mg DAILY ROSALINDA Administration Nifedipine 30 mg 10/09/24 09:00 10/10/24 08:08 Nifedipine 30 Mg Tab.Er.24 PO 30 mg DAILY ROSALINDA Administration Nitroglycerin 0.4 mg 10/08/24 10:24 Nitroglycerin Sl 0.4 Mg Tablet SUBLINGUAL Q5MIN PRN Chest Pain Ondansetron HCl 4 mg 10/08/24 10:26 Ondansetron Inj 4 Mg/2 Ml Vial IV PUSH Q6H PRN Nausea And Vomiting Pantoprazole Sodium 40 mg 10/09/24 21:00 10/10/24 08:08 Pantoprazole 40 Mg Tablet PO 40 mg Q12HR ROSALINDA Administration Rosuvastatin Calcium 5 mg 10/09/24 09:00 10/10/24 08:09 Rosuvastatin 5 Mg Tablet PO 5 mg DAILY ROSALINDA Administration Senna/Docusate Sodium 1 tab 10/08/24 21:00 10/09/24 20:59 Senna/Docusate Sodium Tablet PO Not Given HS [facility] Radiology Results: ITS Impressions Chest X-Ray 10/07/24 23:29 IMPRESSION: Left IJ dialysis catheter with a kink near its tip, correlate with function. Subsegmental right basilar atelectasis/consolidation. Mild interstitial edema versus chronic interstitial change. Labs Labs: Laboratory Results - last 24 hr 10/07/24 10/09/24 10/10/24 23:28 20:56 05:41 WBC 4.6 RBC 2.21 L Hgb 8.4 L 6.6 L* Hct 27.1 L 21.8 L MCV 98.6 D MCH 29.9 MCHC 30.3 L RDW 16.7 H Plt Count 173 MPV 10.3 Immature Gran % (Auto) 0.7 H Neut % (Auto) 65.9 Lymph % (Auto) 19.1 [place] % (Auto) 8.0 Eos % (Auto) 4.8 H Baso % (Auto) 1.5 H Lymph # (Auto) 0.88 L [place] # (Auto) 0.4 Eos # (Auto) 0.2 Baso # (Auto) 0.1 Abs Immat Gran (auto) 0.03 Absolute Neuts (auto) 3.0 Absolute Nucleated RBC 0.000 Nucleated RBC % 0.0 Sodium 134 L Potassium 3.6 Chloride 102 Carbon Dioxide 27 Anion Gap 5 BUN 28 H D Creatinine 4.30 H Estim Creat Clear Calc 13 Estimated GFR 14 L Glucose 101 Calcium 8.7 Magnesium 1.9 Total Bilirubin 0.7 AST 46 ALT 27 Alkaline Phosphatase 59 Total Protein 5.5 L Albumin 3.1 L Blood Type A Negative Antibody Screen Negative Crossmatch See Detail 10/10/24 12:53 WBC RBC Hgb 8.3 L Hct 26.7 L MCV MCH MCHC RDW Plt Count MPV Immature Gran % (Auto) Neut % (Auto) Lymph % (Auto) [place] % (Auto) Eos % (Auto) Baso % (Auto) Lymph # (Auto) [place] # (Auto) Eos # (Auto) Baso # (Auto) Abs Immat Gran (auto) Absolute Neuts (auto) Absolute Nucleated RBC Nucleated RBC % Sodium Potassium Chloride Carbon Dioxide Anion Gap BUN Creatinine Estim Creat Clear Calc Estimated GFR Glucose Calcium Magnesium Total Bilirubin AST ALT Alkaline Phosphatase Total Protein Albumin Blood Type Antibody Screen Crossmatch
[2024-10-11] VITALS (9 sets, daily range): BP systolic 118–130; BP diastolic 59–65; PULSE 63–95; RESP 16–18; TEMP 35.9–36.9; O2SAT 98–100
[2024-10-11] MEDS: LEVOTHYROXINE SODIUM 100 MCG TABLET PO (05:34)
[2024-10-11 05:52] LABS: Hematocrit 24.8 % (42.0-52.0); Hemoglobin 7.9 g/dL (14.0-18.0); Immature Granulocyte Percent A 0.5 % (0-0.5); Lymphocytes Absolute Auto 1.20 K/mm3 (0.9-3.2); Mean Corpuscular HGB Conc 31.9 g/dl (32-36); Mean Corpuscular Hemoglobin 28.7 pg (26-34); Mean Corpuscular Volume 90.2 fl (80-100); Nucleated Red Blood Cells Absolute Auto 0.000 K/mm3 (0.0-0.012); Nucleated Red Blood Cells Perc 0.0 % (0.0-0.2); Platelet Count Result 175 k/mm3 (150-375); Red Blood Count 2.75 M/mm3 (4.6-6.20); White Blood Count 5.7 K/mm3 (4.5-10.0)
[2024-10-11 06:15] LABS: Alanine Aminotransferase 28 U/L (6-50); Albumin Level 3.3 g/dL (3.5-5.1); Alkaline Phosphatase 62 U/L (38-126); Anion Gap 9 mmol/L (4-12); Aspartate Amino Transferase 41 U/L (17-59); Bilirubin,Total 0.7 mg/dL (0.2-1.3); Blood Urea Nitrogen 34 mg/dL (9-20); Calcium 8.8 mg/dL (8.4-10.2); Carbon Dioxide 23 mmol/L (22-30); Chloride 102 mmol/L (98-107); Estimated CRCL calculation 10 ml/min; Estimated Glomerular Filt Rate 10; Glucose 91 mg/dL (65-110); Magnesium 1.8 mg/dL (1.6-2.3); Potassium 3.4 mmol/L (3.4-5.0); Sodium 134 mmol/L (137-145); Total Protein 5.8 g/dL (6.3-8.2)
--- NOTE | 2024-10-11 07:21 | P.PNIM_ITS ---
Progress Note: A&P Assessment and Plan (1) Anemia: Code(s): D64.9 - Anemia, unspecified Status: Acute Assessment and Plan: * Hgb: 6.2 upon admission * received 2 units PRBC since admission * transfuse if <7 * trend H&H * GI consult * EGD - Evidence of gastritis w/o active bleeding * 10/11: Hgb 7.9 * Received 1unit PRBC yesterday * Heme/onc consult pending (2) GI bleed: Code(s): K92.2 - Gastrointestinal hemorrhage, unspecified Status: Acute Assessment and Plan: * See above - suspect Upper GI Bleed * Received aspirin 324 mg p.o. x1 in the ER * Will hold antiplatelets and anticoagulants * Received Protonix 80 mg IV x1 - Continue Protonix 40 mg IV b.i.d. * GI consult * EGD - Evidence of gastritis w/o active bleeding * Anemia likely multifactorial - use of blood thinners, renal failure * Continue BID PPI and holding of anticoags * Will appreciate further recommendations from GI (3) Acute renal failure on dialysis: Code(s): N17.9 - Acute kidney failure, unspecified; Z99.2 - Dependence on renal dialysis Status: Acute Assessment and Plan: * Creatinine: 4.72, GFR: 12, BUN: 24 * IV Fluids: * Trend renal function * Trend electrolytes, correct as needed * Nephrology consult - appreciate further recommendations * 10/11: Cr 5.51, BUN 34 Subjective Date/time seen: 10/11/24 07:21 Interval history: 73-year-old male with history of CAD status post NSTEMI status post PCI to 99% in stent restenoses of ostial LCX on 09/17/2024, ESRD on HD MWF via left tunneled IJ catheter, anemia who presents to [facility] ER on 10/07/2024 reporting a fast heart rate. 10/11/2024 Patient sitting comfortably at time of exam. EGD shows evidence of gastritis but no acute bleeding, continue PPI daily and to resume blood thinners per Cardiology. Heme/onc consult pending. Hgb 7.9 today. Still pending heme/onc consult. As pt receives dialysis M/W/F - will have pt stay here to receive dialysis and talk with our heme/onc for any possible further workup. Pt otherwise stable without complaints or concerns at this time. Review of Systems Review of Systems: All systems reviewed & are unremarkable except as noted in HPI and below (Subjective/HPI) Exam Const: General: comfortable and no acute distress HENMT: Mouth: Yes moist mucous membranes Eyes: Pupils: Equal, round and reactive pupils present Neck: Neck: supple Resp: Effort & Inspection: normal respiratory effort Auscultation: clear to auscultation bilaterally Cardio: Rate: regular rate Rhythm: regular rhythm Heart sounds: Murmur heart sound present GI: Inspection: non-distended Neuro: Cranial nerves: Yes Equal, round and reactive pupils present Motor exam (neuro): 5/5 motor strength present throughout Extrem: General: edema (Trace pitting edema bilateral lower extremities around the ankles) Objective Data Vital Signs Vital Signs: Vital Signs - 24 hr 10/10/24 08:05 10/10/24 08:10 10/10/24 08:24 Temperature 97.1 F L Pulse Rate 89 87 Respiratory Rate 18 Blood Pressure 129/67 Pulse Oximetry 100 Oxygen Delivery Room Air 10/10/24 08:42 10/10/24 09:42 10/10/24 10:42 Temperature 97.1 F L 98.3 F 98.1 F Pulse Rate 84 96 81 Respiratory Rate 18 18 16 Blood Pressure 133/62 111/74 119/60 Pulse Oximetry 100 100 100 Oxygen Delivery 10/10/24 11:40 10/10/24 12:00 10/10/24 16:00 Temperature 96.9 F L Pulse Rate 70 72 89 Respiratory Rate 18 Blood Pressure 121/57 L Pulse Oximetry 100 Oxygen Delivery 10/10/24 16:00 10/10/24 20:00 10/10/24 22:00 Temperature 97.3 F L 98.2 F Pulse Rate 83 77 95 Respiratory Rate 18 18 Blood Pressure 125/80 124/63 Pulse Oximetry 100 100 Oxygen Delivery 10/11/24 00:00 10/11/24 04:00 10/11/24 05:33 Temperature 97.7 F Pulse Rate 63 85 89 Respiratory Rate 16 Blood Pressure 125/59 L Pulse Oximetry 100 Oxygen Delivery Intake/Output Intake/Output: Intake & Output 10/08/24 10/09/24 10/10/24 10/11/24 23:59 23:59 23:59 23:59 Intake Total 5675 821 4134 240 Output Total 1500 Balance 1000 -670 3630 240 Meds/Results Medications: Active Medications Generic Name Dose Route Start Last Admin Trade Name [place] PRN Reason Stop Dose Admin Acetaminophen 650 mg 10/08/24 10:26 Acetaminophen 325 Mg Tablet PO Q4H PRN Mild Pain (1-3) or Fever Ascorbic Acid 500 mg 10/09/24 09:00 10/10/24 08:08 Ascorbic Acid 500 Mg Tablet PO 500 mg DAILY [facility] Administration Folic Acid 1 mg 10/09/24 09:00 10/10/24 08:09 Folic Acid 1 Mg Tablet PO 1 mg DAILY [facility] Administration Albumin Human 50 mls @ 999 mls/hr 10/09/24 06:38 Albutein IVPB 11/08/24 06:37 Q10M PRN HYPOTENSION Isosorbide Mononitrate 30 mg 10/09/24 09:00 10/10/24 08:09 Isosorbide Mononitrate 30 Mg Tab.Er.24h PO 30 mg DAILY [facility] Administration Levothyroxine Sodium 100 mcg 10/09/24 06:30 10/11/24 05:34 Levothyroxine Sodium 100 Mcg Tablet PO 100 mcg DAILY@0630 [facility] Administration Losartan Potassium 100 mg 10/09/24 09:00 10/10/24 08:09 Losartan Potassium 100 Mg Tablet PO 100 mg DAILY [facility] Administration Nifedipine 30 mg 10/09/24 09:00 10/10/24 08:08 Nifedipine 30 Mg Tab.Er.24 PO 30 mg DAILY [facility] Administration Nitroglycerin 0.4 mg 10/08/24 10:24 Nitroglycerin Sl 0.4 Mg Tablet SUBLINGUAL Q5MIN PRN Chest Pain Ondansetron HCl 4 mg 10/08/24 10:26 Ondansetron Inj 4 Mg/2 Ml Vial IV PUSH Q6H PRN Nausea And Vomiting Pantoprazole Sodium 40 mg 10/09/24 21:00 10/10/24 20:21 Pantoprazole 40 Mg Tablet PO 40 mg Q12HR [facility] Administration Rosuvastatin Calcium 5 mg 10/09/24 09:00 10/10/24 08:09 Rosuvastatin 5 Mg Tablet PO 5 mg DAILY [facility] Administration Senna/Docusate Sodium 1 tab 10/08/24 21:00 10/10/24 20:21 Senna/Docusate Sodium Tablet PO Not Given HS [facility] Radiology Results: ITS Impressions Chest X-Ray 10/07/24 23:29 IMPRESSION: Left IJ dialysis catheter with a kink near its tip, correlate with function. Subsegmental right basilar atelectasis/consolidation. Mild interstitial edema versus chronic interstitial change. Labs Labs: Laboratory Results - last 24 hr 10/07/24 10/10/24 10/11/24 23:28 12:53 05:40 WBC 5.7 RBC 2.75 L Hgb 8.3 L 7.9 L Hct 26.7 L 24.8 L MCV 90.2 D MCH 28.7 MCHC 31.9 L RDW 20.0 H Plt Count 175 MPV 10.5 H Immature Gran % (Auto) 0.5 Neut % (Auto) 65.9 Lymph % (Auto) 21.1 [place] % (Auto) 6.5 Eos % (Auto) 4.8 H Baso % (Auto) 1.2 Lymph # (Auto) 1.20 [place] # (Auto) 0.4 Eos # (Auto) 0.3 Baso # (Auto) 0.1 Abs Immat Gran (auto) 0.03 Absolute Neuts (auto) 3.7 Absolute Nucleated RBC 0.000 Nucleated RBC % 0.0 Sodium 134 L Potassium 3.4 Chloride 102 Carbon Dioxide 23 Anion Gap 9 BUN 34 H Creatinine 5.51 H Estim Creat Clear Calc 10 Estimated GFR 10 L Glucose 91 Calcium 8.8 Magnesium 1.8 Total Bilirubin 0.7 AST 41 ALT 28 Alkaline Phosphatase 62 Total Protein 5.8 L Albumin 3.3 L Blood Type A Negative Antibody Screen Negative Crossmatch See Detail Quality VTE Prophylaxis VTE prophylaxis: mechanical ordered
[2024-10-11] MEDS: ROSUVASTATIN 5 MG TABLET PO (09:10)
[2024-10-11] MEDS: ISOSORBIDE MONONITRATE 30 MG TAB.ER.24H PO (09:10)
[2024-10-11] MEDS: PANTOPRAZOLE 40 MG TABLET PO ×2 (09:10→20:48)
[2024-10-11] MEDS: LOSARTAN POTASSIUM 100 MG TABLET PO (09:10)
[2024-10-11] MEDS: ASCORBIC ACID 500 MG TABLET PO (09:10)
[2024-10-11] MEDS: FOLIC ACID 1 MG TABLET PO (09:10)
--- NOTE | 2024-10-11 11:05 | P.PNNP_ITS ---
Progress Note: A&P Assessment and Plan (1) Acute renal failure on dialysis: Code(s): N17.9 - Acute kidney failure, unspecified; Z99.2 - Dependence on renal dialysis Status: Acute Assessment and Plan: * remains dialysis dependent at this time * interestingly, he is making some urine (he was anuric on last hospitalization) * however, still has significant rise in BUN and creatinine between dialysis treatments... * HD tomorrow * continue Sat/Sat/Saturday dialysis schedule while hospitalized * follow electrolytes, volume status and clearance * monitor labs and UOP for possible renal recovery (2) GI bleed: Code(s): K92.2 - Gastrointestinal hemorrhage, unspecified Status: Acute Assessment and Plan: * suspected based on admission history (melena) * low Hgb on admission noted as well * GI recommendations noted: * s/p EGD: no bleeding lesions; mild gastritis that was erythematous, edematous, and with erosive changes * PRBC transfusion per protocol * 3 units transfused since admission * Hem/Onc consult pending (3) Tachycardia: Code(s): R00.0 - Tachycardia, unspecified Status: Acute Assessment and Plan: * etiology?? -- due to anemia? * appears to have resolved * follow trend of vital signs (4) Hypertension: Code(s): I10 - Essential (primary) hypertension Status: Chronic Assessment and Plan: * reasonable control at this time * follow trend of hemodynamics (5) Anemia: Code(s): D64.9 - Anemia, unspecified Status: Acute Assessment and Plan: * due in part from ANNA MARIE and CKD * possibly worsened by #2 and necessity of blood thinners for #6 * high dose Epogen with HD * follow trend of H/H * Hem/Onc consulted (6) Coronary artery disease: Code(s): I25.10 - Atherosclerotic heart disease of [place] coronary artery without angina pectoris Status: Acute Assessment and Plan: * NSTEMI on hospitalization last month * status post PCI to 99% in-stent restenoses of ostial LCX on 09/17/2024 * continue medical management * blood thinners on hold given #2 * continue supportive therapy Will continue to follow. L Subjective Date/time seen: 10/11/24 11:05 Interval history: Follow-up for acute kidney injury/acute renal failure (on chronic kidney disease) requiring PERINATAL SPECIALIST/hemodialysis. No apparent issues or problems overnight; tolerated PRBC transfusion with reasonable incrementation in H/H; no other events overnight or earlier this morning; no other acute complaints voiced at the time of my visit. Exam 2 Narrative: General: elderly but WD/WN male in NAD Heart: normal S1 and S2; no rub Lungs: clear to auscultation Abdomen: soft, nontender, nondistended, positive bowel sounds Extremities: no cyanosis or clubbing; no edema Skin: no rash Objective Data Vital Signs Vital Signs: Vital Signs Temp Pulse Resp BP Pulse Ox O2 Del Method 10/11/24 09:20 89 10/11/24 09:20 Room Air 10/11/24 05:33 97.7 F 89 16 125/59 L 100 10/11/24 04:00 85 10/11/24 00:00 63 10/10/24 22:00 98.2 F 95 18 124/63 100 10/10/24 20:00 77 10/10/24 16:00 97.3 F L 83 18 125/80 100 10/10/24 16:00 89 Intake/Output Intake/Output: Intake & Output 10/08/24 10/09/24 10/10/24 10/11/24 23:59 23:59 23:59 23:59 Intake Total 9446 379 7831 360 Output Total 1500 Balance 1000 -670 3630 360 Meds/Results Medications: Active Medications Generic Name Dose Route Start Last Admin Trade Name Freq PRN Reason Stop Dose Admin Acetaminophen 650 mg 10/08/24 10:26 Acetaminophen 325 Mg Tablet PO Q4H PRN Mild Pain (1-3) or Fever Ascorbic Acid 500 mg 10/09/24 09:00 10/11/24 09:10 Ascorbic Acid 500 Mg Tablet PO 500 mg DAILY [facility] Administration Folic Acid 1 mg 10/09/24 09:00 10/11/24 09:10 Folic Acid 1 Mg Tablet PO 1 mg DAILY [facility] Administration Albumin Human 50 mls @ 999 mls/hr 10/09/24 06:38 Albutein IVPB 11/08/24 06:37 Q10M PRN HYPOTENSION Isosorbide Mononitrate 30 mg 10/09/24 09:00 10/11/24 09:10 Isosorbide Mononitrate 30 Mg Tab.Er.24h PO 30 mg DAILY [facility] Administration Levothyroxine Sodium 100 mcg 10/09/24 06:30 10/11/24 05:34 Levothyroxine Sodium 100 Mcg Tablet PO 100 mcg DAILY@0630 [facility] Administration Losartan Potassium 100 mg 10/09/24 09:00 10/11/24 09:10 Losartan Potassium 100 Mg Tablet PO 100 mg DAILY [facility] Administration Nifedipine 30 mg 10/09/24 09:00 10/11/24 09:10 Nifedipine 30 Mg Tab.Er.24 PO 30 mg DAILY [facility] Administration Nitroglycerin 0.4 mg 10/08/24 10:24 Nitroglycerin Sl 0.4 Mg Tablet SUBLINGUAL Q5MIN PRN Chest Pain Ondansetron HCl 4 mg 10/08/24 10:26 Ondansetron Inj 4 Mg/2 Ml Vial IV PUSH Q6H PRN Nausea And Vomiting Pantoprazole Sodium 40 mg 10/09/24 21:00 10/11/24 09:10 Pantoprazole 40 Mg Tablet PO 40 mg Q12HR [facility] Administration Rosuvastatin Calcium 5 mg 10/09/24 09:00 10/11/24 09:10 Rosuvastatin 5 Mg Tablet PO 5 mg DAILY [facility] Administration Senna/Docusate Sodium 1 tab 10/08/24 21:00 10/10/24 20:21 Senna/Docusate Sodium Tablet PO Not Given HS [facility] Radiology Results: ITS Impressions Chest X-Ray 10/07/24 23:29 IMPRESSION: Left IJ dialysis catheter with a kink near its tip, correlate with function. Subsegmental right basilar atelectasis/consolidation. Mild interstitial edema versus chronic interstitial change. Labs Labs: Laboratory Tests 10/11/24 05:40 10/11/24 05:40 Calcium 8.8 Magnesium 1.8 Total Bilirubin 0.7 AST 41 ALT 28 Alkaline Phosphatase 62 Total Protein 5.8 L Albumin 3.3 L Microbiology 10/08/24 05:09 Blood Blood Culture - Preliminary 10/08/24 06:05 Blood Blood Culture - Preliminary
--- NOTE | 2024-10-11 11:44 | PC.NURSE ---
Patient stating his left hand is cramping up. Patient can move hand, fingers, and has a strong squeeze. Patient wants his hospitalist to have note of this. RN called hospitalist James and updated him via telephone.
--- NOTE | 2024-10-11 13:58 | P.PNGI_ITS ---
Progress Note: A&P Assessment and Plan (1) Occult blood in stools: Code(s): R19.5 - Other fecal abnormalities Status: Acute Assessment and Plan: egd only mild gastritis, not enough to cause anemia anemia probably multifactorial- use blood thinners, renal failure gerentological physiotherapist will also evaluate patient his last colonoscopy 2022, no need to repeat unless any obvious changes or GIB will follow as needed (2) Acute on chronic anemia: Code(s): D64.9 - Anemia, unspecified Status: Acute Assessment and Plan: on epo also ppi because gastritis (3) NSTEMI (non-ST elevated myocardial infarction): Code(s): I21.4 - Non-ST elevation (NSTEMI) myocardial infarction Status: Acute (4) Acute renal failure on dialysis: Code(s): N17.9 - Acute kidney failure, unspecified; Z99.2 - Dependence on renal dialysis Status: Acute (5) GI bleed: Code(s): K92.2 - Gastrointestinal hemorrhage, unspecified Status: Acute Subjective Date/time seen: 10/11/24 13:58 Interval history: he is comfortable no signs of gib Review of Systems Review of Systems: All systems reviewed & are unremarkable except as noted in HPI and below Exam Const: General: comfortable and no acute distress HENMT: Mouth: Yes moist mucous membranes Eyes: Pupils: Equal, round and reactive pupils present Neck: Neck: supple Resp: Effort & Inspection: normal respiratory effort Auscultation: clear to auscultation bilaterally Cardio: Rate: regular rate Rhythm: regular rhythm Heart sounds: Murmur heart sound present GI: Inspection: non-distended GI Palp: Yes Soft to palpation Auscultation: normal bowel sounds Skin: General skin exam: normal color Neuro: Cranial nerves: Yes Equal, round and reactive pupils present Motor exam (neuro): 5/5 motor strength present throughout Extrem: General: edema (Trace pitting edema bilateral lower extremities around the ankles) Psych: Affect: normal affect Objective Data Vital Signs Vital Signs: Vital Signs - 24 hr 10/10/24 16:00 10/10/24 16:00 10/10/24 20:00 Temperature 97.3 F L Pulse Rate 89 83 77 Respiratory Rate 18 Blood Pressure 125/80 Pulse Oximetry 100 Oxygen Delivery 10/10/24 22:00 10/11/24 00:00 10/11/24 04:00 Temperature 98.2 F Pulse Rate 95 63 85 Respiratory Rate 18 Blood Pressure 124/63 Pulse Oximetry 100 Oxygen Delivery 10/11/24 05:33 10/11/24 09:20 10/11/24 09:20 Temperature 97.7 F Pulse Rate 89 91 Respiratory Rate 16 Blood Pressure 125/59 L Pulse Oximetry 100 Oxygen Delivery Room Air 10/11/24 12:00 Temperature Pulse Rate 89 Respiratory Rate Blood Pressure Pulse Oximetry Oxygen Delivery Intake/Output Intake/Output: Intake & Output 10/08/24 10/09/24 10/10/24 10/11/24 23:59 23:59 23:59 23:59 Intake Total 9830 406 5094 360 Output Total 1500 Balance 1000 -670 3630 360 Meds/Results Medications: Active Medications Generic Name Dose Route Start Last Admin Trade Name Freq PRN Reason Stop Dose Admin Acetaminophen 650 mg 10/08/24 10:26 Acetaminophen 325 Mg Tablet PO Q4H PRN Mild Pain (1-3) or Fever Ascorbic Acid 500 mg 10/09/24 09:00 10/11/24 09:10 Ascorbic Acid 500 Mg Tablet PO 500 mg DAILY [facility] Administration Folic Acid 1 mg 10/09/24 09:00 10/11/24 09:10 Folic Acid 1 Mg Tablet PO 1 mg DAILY [facility] Administration Albumin Human 50 mls @ 999 mls/hr 10/09/24 06:38 Albutein IVPB 11/08/24 06:37 Q10M PRN HYPOTENSION Isosorbide Mononitrate 30 mg 10/09/24 09:00 10/11/24 09:10 Isosorbide Mononitrate 30 Mg Tab.Er.24h PO 30 mg DAILY [facility] Administration Levothyroxine Sodium 100 mcg 10/09/24 06:30 10/11/24 05:34 Levothyroxine Sodium 100 Mcg Tablet PO 100 mcg DAILY@0630 [facility] Administration Losartan Potassium 100 mg 10/09/24 09:00 10/11/24 09:10 Losartan Potassium 100 Mg Tablet PO 100 mg DAILY [facility] Administration Nifedipine 30 mg 10/09/24 09:00 10/11/24 09:10 Nifedipine 30 Mg Tab.Er.24 PO 30 mg DAILY [facility] Administration Nitroglycerin 0.4 mg 10/08/24 10:24 Nitroglycerin Sl 0.4 Mg Tablet SUBLINGUAL Q5MIN PRN Chest Pain Ondansetron HCl 4 mg 10/08/24 10:26 Ondansetron Inj 4 Mg/2 Ml Vial IV PUSH Q6H PRN Nausea And Vomiting Pantoprazole Sodium 40 mg 10/09/24 21:00 10/11/24 09:10 Pantoprazole 40 Mg Tablet PO 40 mg Q12HR [facility] Administration Rosuvastatin Calcium 5 mg 10/09/24 09:00 10/11/24 09:10 Rosuvastatin 5 Mg Tablet PO 5 mg DAILY [facility] Administration Senna/Docusate Sodium 1 tab 10/08/24 21:00 10/10/24 20:21 Senna/Docusate Sodium Tablet PO Not Given HS [facility] Radiology Results: ITS Impressions Chest X-Ray 10/07/24 23:29 IMPRESSION: Left IJ dialysis catheter with a kink near its tip, correlate with function. Subsegmental right basilar atelectasis/consolidation. Mild interstitial edema versus chronic interstitial change. Labs Labs: Laboratory Results - last 24 hr 10/11/24 05:40 WBC 5.7 RBC 2.75 L Hgb 7.9 L Hct 24.8 L MCV 90.2 D MCH 28.7 MCHC 31.9 L RDW 20.0 H Plt Count 175 MPV 10.5 H Immature Gran % (Auto) 0.5 Neut % (Auto) 65.9 Lymph % (Auto) 21.1 [place] % (Auto) 6.5 Eos % (Auto) 4.8 H Baso % (Auto) 1.2 Lymph # (Auto) 1.20 [place] # (Auto) 0.4 Eos # (Auto) 0.3 Baso # (Auto) 0.1 Abs Immat Gran (auto) 0.03 Absolute Neuts (auto) 3.7 Absolute Nucleated RBC 0.000 Nucleated RBC % 0.0 Sodium 134 L Potassium 3.4 Chloride 102 Carbon Dioxide 23 Anion Gap 9 BUN 34 H Creatinine 5.51 H Estim Creat Clear Calc 10 Estimated GFR 10 L Glucose 91 Calcium 8.8 Magnesium 1.8 Total Bilirubin 0.7 AST 41 ALT 28 Alkaline Phosphatase 62 Total Protein 5.8 L Albumin 3.3 L
[2024-10-11] MEDS: SENNA/DOCUSATE SODIUM TABLET 1 TAB PO (20:48)
[2024-10-12] VITALS (36 sets, daily range): BP systolic 101–128; BP diastolic 51–89; PULSE 67–97; RESP 14–20; TEMP 36.1–38; O2SAT 99–100
[2024-10-12] MEDS: LEVOTHYROXINE SODIUM 100 MCG TABLET PO (05:39)
[2024-10-12 06:01] LABS: Hematocrit 21.7 % (42.0-52.0); Immature Granulocyte Percent A 0.2 % (0-0.5); Lymphocytes Absolute Auto 1.09 K/mm3 (0.9-3.2); Mean Corpuscular HGB Conc 31.3 g/dl (32-36); Mean Corpuscular Hemoglobin 28.6 pg (26-34); Mean Corpuscular Volume 91.2 fl (80-100); Nucleated Red Blood Cells Absolute Auto 0.000 K/mm3 (0.0-0.012); Nucleated Red Blood Cells Perc 0.0 % (0.0-0.2); Platelet Count Result 148 k/mm3 (150-375); Red Blood Count 2.38 M/mm3 (4.6-6.20); White Blood Count 5.0 K/mm3 (4.5-10.0)
[2024-10-12 06:04] LABS: Hemoglobin 6.8 g/dL (14.0-18.0)
[2024-10-12 06:24] LABS: Alanine Aminotransferase 23 U/L (6-50); Albumin Level 2.8 g/dL (3.5-5.1); Alkaline Phosphatase 56 U/L (38-126); Anion Gap 8 mmol/L (4-12); Aspartate Amino Transferase 31 U/L (17-59); Bilirubin,Total 0.5 mg/dL (0.2-1.3); Blood Urea Nitrogen 37 mg/dL (9-20); Calcium 8.5 mg/dL (8.4-10.2); Carbon Dioxide 23 mmol/L (22-30); Chloride 108 mmol/L (98-107); Estimated CRCL calculation 9 ml/min; Estimated Glomerular Filt Rate 9; Glucose 83 mg/dL (65-110); Magnesium 1.6 mg/dL (1.6-2.3); Potassium 3.5 mmol/L (3.4-5.0); Sodium 139 mmol/L (137-145); Total Protein 5.1 g/dL (6.3-8.2)
--- NOTE | 2024-10-12 07:48 | PC.NURSE ---
Patient off of unit to dialysis
--- NOTE | 2024-10-12 07:55 | P.PNIM_ITS ---
Progress Note: A&P Assessment and Plan (1) Anemia: Code(s): D64.9 - Anemia, unspecified Status: Acute Assessment and Plan: * Hgb: 6.2 upon admission * received 2 units PRBC since admission * transfuse if <7 * trend H&H * GI consult * EGD - Evidence of gastritis w/o active bleeding * 10/12: Hgb 6.8 * Will give additional 2 units of PRBC * Heme/onc consult * soluble transferrin receptor, erythropoietin level, serum protein electrophoresis with immunofixation and vitamin B12 level * Procrit [id number] units today with [id number] follow up with oncologist office (2) GI bleed: Code(s): K92.2 - Gastrointestinal hemorrhage, unspecified Status: Acute Assessment and Plan: * See above - suspect Upper GI Bleed * Received aspirin 324 mg p.o. x1 in the ER * Will hold antiplatelets and anticoagulants * Received Protonix 80 mg IV x1 - Continue Protonix 40 mg IV b.i.d. * GI consult * EGD - Evidence of gastritis w/o active bleeding * Anemia likely multifactorial - use of blood thinners, renal failure * Continue BID PPI and holding of anticoags * Will appreciate further recommendations from GI (3) Acute renal failure on dialysis: Code(s): N17.9 - Acute kidney failure, unspecified; Z99.2 - Dependence on renal dialysis Status: Acute Assessment and Plan: * Creatinine: 4.72, GFR: 12, BUN: 24 * Trend renal function * Trend electrolytes, correct as needed * Nephrology consult - appreciate further recommendations * 10/12: Cr 6.22, BUN 37 * Dialysis today Subjective Date/time seen: 10/12/24 07:55 Interval history: 73-year-old male with history of CAD status post NSTEMI status post PCI to 99% in stent restenoses of ostial LCX on 09/17/2024, ESRD on HD MWF via left tunneled IJ catheter, anemia who presents to [facility] ER on 10/07/2024 reporting a fast heart rate. 10/12/2024 Patient sitting comfortably at bedside during examination. Denies any chest pain, n/v, abd pain, sob, or weakness at this time. Heme/onc consulted - recommending initiated Procrit 43773 units now and having the pt follow up every 2 weeks for repeat injections. They will also add on soluble transferrin receptor, erythropoietin level, serum protein electrophoresis with immunofixation and vitamin B12 level. Hemoglobin dropped to 6.8, ordered 2 additional units PRBC. Continue monitor H&H after transfusions. Review of Systems Review of Systems: All systems reviewed & are unremarkable except as noted in HPI and below (Subjective/HPI) Exam Const: General: comfortable and no acute distress HENMT: Mouth: Yes moist mucous membranes Eyes: Pupils: Equal, round and reactive pupils present Neck: Neck: supple Resp: Effort & Inspection: normal respiratory effort Auscultation: clear to auscultation bilaterally Cardio: Rate: regular rate Rhythm: regular rhythm Heart sounds: Murmur heart sound present GI: Inspection: non-distended Neuro: Cranial nerves: Yes Equal, round and reactive pupils present Motor exam (neuro): 5/5 motor strength present throughout Extrem: General: edema (Trace pitting edema bilateral lower extremities around the ankles) Objective Data Vital Signs Vital Signs: Vital Signs - 24 hr 10/11/24 09:20 10/11/24 09:20 10/11/24 12:00 Temperature Pulse Rate 91 89 Respiratory Rate Blood Pressure Pulse Oximetry Oxygen Delivery Room Air 10/11/24 14:00 10/11/24 16:00 10/11/24 20:00 Temperature 98.4 F Pulse Rate 74 95 76 Respiratory Rate 18 Blood Pressure 118/64 Pulse Oximetry 98 Oxygen Delivery 10/11/24 21:48 10/12/24 00:00 10/12/24 04:52 Temperature 96.6 F L Pulse Rate 82 85 77 Respiratory Rate 18 Blood Pressure 130/65 Pulse Oximetry 99 Oxygen Delivery 10/12/24 06:00 Temperature 97.8 F Pulse Rate 88 Respiratory Rate 18 Blood Pressure 128/71 Pulse Oximetry 100 Oxygen Delivery Intake/Output Intake/Output: Intake & Output 10/09/24 10/10/24 10/11/24 10/12/24 23:59 23:59 23:59 23:59 Intake Total 830 3630 2060 Output Total 1500 Balance -670 3630 2060 Meds/Results Medications: Active Medications Generic Name Dose Route Start Last Admin Trade Name Freq PRN Reason Stop Dose Admin Acetaminophen 650 mg 10/08/24 10:26 Acetaminophen 325 Mg Tablet PO Q4H PRN Mild Pain (1-3) or Fever Ascorbic Acid 500 mg 10/09/24 09:00 10/11/24 09:10 Ascorbic Acid 500 Mg Tablet PO 500 mg DAILY ROSALINDA Administration Epoetin Brandon-epbx 20,000 units 10/12/24 19:02 Epoetin Brandon-Epbx 10,000 Units/Ml Vial IV PUSH 10/12/24 19:03 ONCE ONE Folic Acid 1 mg 10/09/24 09:00 10/11/24 09:10 Folic Acid 1 Mg Tablet PO 1 mg DAILY ROSALINDA Administration Albumin Human 50 mls @ 999 mls/hr 10/09/24 06:38 Albutein IVPB 11/08/24 06:37 Q10M PRN HYPOTENSION Sodium Chloride 250 mls @ 30 mls/hr 10/12/24 07:02 Normal Saline Iv IV CONT 10/12/24 15:21 .Q8H20M STA Sodium Chloride 1,000 mls @ 999 mls/hr 10/12/24 07:02 Normal Saline Iv IV CONT 10/12/24 08:02 .Q1H1M ONE Isosorbide Mononitrate 30 mg 10/09/24 09:00 10/11/24 09:10 Isosorbide Mononitrate 30 Mg Tab.Er.24h PO 30 mg DAILY ROSALINDA Administration Levothyroxine Sodium 100 mcg 10/09/24 06:30 10/12/24 05:39 Levothyroxine Sodium 100 Mcg Tablet PO 100 mcg DAILY@0630 ROSALINDA Administration Losartan Potassium 100 mg 10/09/24 09:00 10/11/24 09:10 Losartan Potassium 100 Mg Tablet PO 100 mg DAILY ROSALINDA Administration Nifedipine 30 mg 10/09/24 09:00 10/11/24 09:10 Nifedipine 30 Mg Tab.Er.24 PO 30 mg DAILY ROSALINDA Administration Nitroglycerin 0.4 mg 10/08/24 10:24 Nitroglycerin Sl 0.4 Mg Tablet SUBLINGUAL Q5MIN PRN Chest Pain Ondansetron HCl 4 mg 10/08/24 10:26 Ondansetron Inj 4 Mg/2 Ml Vial IV PUSH Q6H PRN Nausea And Vomiting Pantoprazole Sodium 40 mg 10/09/24 21:00 10/11/24 20:48 Pantoprazole 40 Mg Tablet PO 40 mg Q12HR ROSALINDA Administration Rosuvastatin Calcium 5 mg 10/09/24 09:00 10/11/24 09:10 Rosuvastatin 5 Mg Tablet PO 5 mg DAILY ROSALINDA Administration Senna/Docusate Sodium 1 tab 10/08/24 21:00 10/11/24 20:48 Senna/Docusate Sodium Tablet PO 1 tab HS ROSALINDA Administration Radiology Results: ITS Impressions Chest X-Ray 10/07/24 23:29 IMPRESSION: Left IJ dialysis catheter with a kink near its tip, correlate with function. Subsegmental right basilar atelectasis/consolidation. Mild interstitial edema versus chronic interstitial change. Labs Labs: Laboratory Results - last 24 hr 10/12/24 05:52 WBC 5.0 RBC 2.38 L Hgb 6.8 L* Hct 21.7 L MCV 91.2 MCH 28.6 MCHC 31.3 L RDW 19.7 H Plt Count 148 L MPV 10.4 Immature Gran % (Auto) 0.2 Neut % (Auto) 64.5 Lymph % (Auto) 22.0 [place] % (Auto) 7.7 Eos % (Auto) 4.4 Baso % (Auto) 1.2 Lymph # (Auto) 1.09 [place] # (Auto) 0.4 Eos # (Auto) 0.2 Baso # (Auto) 0.1 Abs Immat Gran (auto) 0.01 Absolute Neuts (auto) 3.2 Absolute Nucleated RBC 0.000 Nucleated RBC % 0.0 Sodium 139 Potassium 3.5 Chloride 108 H Carbon Dioxide 23 Anion Gap 8 BUN 37 H Creatinine 6.22 H Estim Creat Clear Calc 9 Estimated GFR 9 L Glucose 83 Calcium 8.5 Magnesium 1.6 Total Bilirubin 0.5 AST 31 ALT 23 Alkaline Phosphatase 56 Total Protein 5.1 L Albumin 2.8 L Quality VTE Prophylaxis VTE prophylaxis: mechanical ordered
[2024-10-12] MEDS: EPOETIN ALFA-EPBX 20,000 UNITS/ML VIAL 20000 UNITS IV PUSH (09:27)
[2024-10-12] MEDS: SODIUM CHLORIDE 0.9% IV 1,000 ML 999 ML IV CONT (09:29)
--- NOTE | 2024-10-12 10:10 | P.PNNP_ITS ---
Progress Note: A&P Assessment and Plan (1) Acute renal failure on dialysis: Code(s): N17.9 - Acute kidney failure, unspecified; Z99.2 - Dependence on renal dialysis Status: Acute Assessment and Plan: * remains dialysis dependent at this time * interestingly, he is making some urine (he was anuric on last hospitalization) * however, still has significant rise in BUN and creatinine between dialysis treatments... * HD today * continue Sat/Sat/Saturday dialysis schedule while hospitalized * follow electrolytes, volume status and clearance * monitor labs and UOP for possible renal recovery (2) GI bleed: Code(s): K92.2 - Gastrointestinal hemorrhage, unspecified Status: Acute Assessment and Plan: * suspected based on admission history (melena) * low Hgb on admission noted as well * GI recommendations noted: * s/p EGD: no bleeding lesions; mild gastritis that was erythematous, edematous, and with erosive changes * PRBC transfusion per protocol * 3 units transfused since admission * plan another transfusion today * Hem/Onc consult pending (3) Tachycardia: Code(s): R00.0 - Tachycardia, unspecified Status: Acute Assessment and Plan: * etiology?? -- due to anemia? * appears to have resolved * follow trend of vital signs (4) Hypertension: Code(s): I10 - Essential (primary) hypertension Status: Chronic Assessment and Plan: * reasonable control at this time * follow trend of hemodynamics (5) Anemia: Code(s): D64.9 - Anemia, unspecified Status: Acute Assessment and Plan: * due in part from ANNA MARIE and CKD * possibly worsened by #2 and necessity of blood thinners for #6 * high dose Epogen with HD * follow trend of H/H * Hem/Onc consulted (6) Coronary artery disease: Code(s): I25.10 - Atherosclerotic heart disease of [place] coronary artery without angina pectoris Status: Acute Assessment and Plan: * NSTEMI on hospitalization last month * status post PCI to 99% in-stent restenoses of ostial LCX on 09/17/2024 * continue medical management * blood thinners on hold given #2 * continue supportive therapy Will continue to follow. L Subjective Date/time seen: 10/12/24 10:10 Interval history: Follow-up for acute kidney injury/acute renal failure (on chronic kidney disease) requiring [employer]/hemodialysis. Tolerating dialysis treatment at the time of my visit (seen on HD at 10:00am); noted drop in H/H again by AM labs so PRBC transfusion planned; no other acute complaints voiced when seen; no events overnight or earlier this morning. Exam 2 Narrative: General: elderly but WD/WN male in NAD Heart: normal S1 and S2; no rub Lungs: clear to auscultation Abdomen: soft, nontender, nondistended, positive bowel sounds Extremities: no cyanosis or clubbing; no edema Skin: no nodules Objective Data Vital Signs Vital Signs: Vital Signs Temp Pulse Resp BP Pulse Ox O2 Del Method 10/12/24 10:00 85 109/67 10/12/24 09:45 72 111/65 10/12/24 09:30 74 117/65 10/12/24 09:15 67 108/71 10/12/24 09:00 68 127/65 10/12/24 08:45 69 122/71 10/12/24 08:30 77 123/70 10/12/24 08:15 76 115/68 10/12/24 07:56 75 111/68 10/12/24 07:48 97.9 F 92 16 124/80 100 10/12/24 07:30 78 10/12/24 07:30 Room Air 10/12/24 06:00 97.8 F 88 18 128/71 100 10/12/24 04:52 77 10/12/24 00:00 85 10/11/24 21:48 96.6 F L 82 18 130/65 99 10/11/24 20:00 76 10/11/24 16:00 95 10/11/24 14:00 98.4 F 74 18 118/64 98 Intake/Output Intake/Output: Intake & Output 10/09/24 10/10/24 10/11/24 10/12/24 23:59 23:59 23:59 23:59 Intake Total 830 0 2059 0 Output Total 1500 1999 Balance -670 3630 2059 -1999 Meds/Results Medications: Active Medications Generic Name Dose Route Start Last Admin Trade Name Freq PRN Reason Stop Dose Admin Acetaminophen 650 mg 10/08/24 10:26 Acetaminophen 325 Mg Tablet PO Q4H PRN Mild Pain (1-3) or Fever Ascorbic Acid 500 mg 10/09/24 09:00 10/12/24 08:01 Ascorbic Acid 500 Mg Tablet PO Not Given DAILY [facility] Epoetin Brandon-epbx 20,000 units 10/12/24 19:02 10/12/24 09:27 Epoetin Brandon-Epbx 20,000 Units/Ml Vial IV PUSH 10/12/24 19:03 20,000 units ONCE ONE Administration Folic Acid 1 mg 10/09/24 09:00 10/12/24 08:02 Folic Acid 1 Mg Tablet PO Not Given DAILY [facility] Albumin Human 50 mls @ 999 mls/hr 10/09/24 06:38 Albutein IVPB 11/08/24 06:37 Q10M PRN HYPOTENSION Sodium Chloride 250 mls @ 30 mls/hr 10/12/24 07:02 10/12/24 12:28 Normal Saline Iv IV CONT 10/12/24 15:21 30 mls/hr .Q8H20M STA Administration Isosorbide Mononitrate 30 mg 10/09/24 09:00 10/12/24 08:02 Isosorbide Mononitrate 30 Mg Tab.Er.24h PO Not Given DAILY [facility] Levothyroxine Sodium 100 mcg 10/09/24 06:30 10/12/24 05:39 Levothyroxine Sodium 100 Mcg Tablet PO 100 mcg DAILY@0630 ROSALINDA Administration Losartan Potassium 100 mg 10/09/24 09:00 10/12/24 08:02 Losartan Potassium 100 Mg Tablet PO Not Given DAILY [facility] Nifedipine 30 mg 10/09/24 09:00 10/12/24 08:02 Nifedipine 30 Mg Tab.Er.24 PO Not Given DAILY [facility] Nitroglycerin 0.4 mg 10/08/24 10:24 Nitroglycerin Sl 0.4 Mg Tablet SUBLINGUAL Q5MIN PRN Chest Pain Ondansetron HCl 4 mg 10/08/24 10:26 Ondansetron Inj 4 Mg/2 Ml Vial IV PUSH Q6H PRN Nausea And Vomiting Pantoprazole Sodium 40 mg 10/09/24 21:00 10/12/24 08:02 Pantoprazole 40 Mg Tablet PO Not Given Q12HR [facility] Rosuvastatin Calcium 5 mg 10/09/24 09:00 10/12/24 08:02 Rosuvastatin 5 Mg Tablet PO Not Given DAILY [facility] Senna/Docusate Sodium 1 tab 10/08/24 21:00 10/11/24 20:48 Senna/Docusate Sodium Tablet PO 1 tab HS ROSALINDA Administration Radiology Results: ITS Impressions Chest X-Ray 10/07/24 23:29 IMPRESSION: Left IJ dialysis catheter with a kink near its tip, correlate with function. Subsegmental right basilar atelectasis/consolidation. Mild interstitial edema versus chronic interstitial change. Labs Labs: Laboratory Tests 10/12/24 05:52 10/12/24 05:52 Calcium 8.5 Magnesium 1.6 Total Bilirubin 0.5 AST 31 ALT 23 Alkaline Phosphatase 56 Total Protein 5.1 L Albumin 2.8 L Microbiology 10/08/24 05:09 Blood Blood Culture - Preliminary 10/08/24 06:05 Blood Blood Culture - Preliminary
[2024-10-12] MEDS: SODIUM CHLORIDE 0.9% IV 250 ML 30 ML IV CONT (12:28)
--- NOTE | 2024-10-12 12:58 | P.CONONC_ITS ---
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 He had last phlebotomy done in 2019. His last iron studies were normal. He was last seen in the office in March 2024. Patient had non STEMI status post PCI to 99% in stent restenoses done on September 17, 2024. Patient developed acute renal failure after that and started on hemodialysis. He has dark stool but no bleeding. EGD showed gastritis. Iron studies were normal. His anemia is secondary to renal insufficiency. I will order soluble transferrin receptor, erythropoietin level, serum protein electrophoresis with immunofixation and vitamin B12 level. I will start him on Procrit [id number] units now and then continue that in the office on a biweekly basis. I have answered all the questions the patient and the satisfaction. 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 Recent iron studies were normal. Patient has history of coronary artery disease with non STEMI status status post PCI with 99% stent restenoses of the left circumflex artery on September 17, 2024. Patient was recently diagnosed with renal failure. Came into the hospital with palpitation and tachycardia. He denies any bleeding but has some dark stools. Hemoglobin was 6.2 on admission. Currently getting blood transfusion. Patient developed acute kidney failure dependence on renal dialysis. He started hemodialysis just recently. His creatinine was normal at 1.28 in March and dropped to 20 in September of 2024. Iron studies from September 18 showed iron of 78 with iron saturation of 38%. EGD was performed on October 09 showed gastritis. Patient had colonoscopy in 2022. Review of Systems 2 Review of Systems: Twelve point review of system was reviewed REPLACED BY [facility] Past Medical History Medical History Occult blood in stools Acute on chronic anemia History of right common carotid artery stent placement Coronary artery disease Adenomatous colon polyp Hypertension Surgical History Surgical History History of percutaneous coronary intervention Social History Social History Smoking packs per day: 2 Smoking cigarettes per day: 40.0 Years smoked: 50 Smoking pack-years: 100.00 Smoking status: Former smoker Second hand tobacco smoke exposure: Yes Alcohol intake: former Alcohol use details: BEERS Substance use: never Substance use type: does not use Do You Feel Safe in your Home?: Yes Lack of Transportation: No Lack of Food: Never True Current Housing: I Have Housing Concerned About Future Housing: No Difficulty Paying Gas/Electric Bills: No Difficulty Paying for Meds: No Currently Unemployed: No Education: High School Diploma/GED Difficulty w/ Childcare or Family Care: No Living arrangements: with family Gender identity (if verbalized by the patient): Male Spiritual care concerns: No Meds Home Medications and Allergies Home Medications ?Medication ?Instructions ?Recorded ?Confirmed ?Type ascorbic acid (vitamin C) 500 mg 500 mg PO DAILY 02/06/20 10/08/24 History tablet folic acid 1 mg tablet 1 mg PO DAILY 02/06/20 10/08/24 History levothyroxine 100 mcg tablet 100 mcg PO DAILY 02/06/20 10/08/24 History (Synthroid) rosuvastatin 5 mg tablet 5 mg PO DAILY 05/22/22 10/08/24 History nifedipine 30 mg tablet,extended 30 mg PO DAILY 09/16/24 10/08/24 History release 24 hr ticagrelor 90 mg tablet (Brilinta) 90 mg PO Q12HR 30 days #60 tabs 09/20/24 10/08/24 Rx aspirin 81 mg chewable tablet 81 mg PO DAILY@0800 #30 tabs 09/24/24 10/08/24 Rx (Children's Aspirin) nitroglycerin 0.4 mg sublingual 0.4 mg sublingual Q5MIN PRN Chest 09/24/24 10/08/24 Rx tablet (Nitrostat) Pain #26 tabs pantoprazole 40 mg tablet,delayed 40 mg PO Q12HR #60 tabs 09/24/24 10/08/24 Rx release polyethylene glycol 3350 17 gram 17 g PO QAM #30 ea 09/24/24 10/08/24 Rx oral powder packet (Miralax) sennosides 8.6 mg-docusate sodium 1 tab PO HS #30 tabs 09/24/24 10/08/24 Rx 50 mg tablet (Senokot-S) isosorbide mononitrate 30 mg 30 mg PO DAILY 10/08/24 10/08/24 History tablet,extended release 24 hr losartan 100 mg tablet 100 mg PO DAILY 10/08/24 10/08/24 History Allergies Allergy/AdvReac Type Severity Reaction Status Date / Time icosapent ethyl (From Allergy Diarrhea Verified 10/08/24 02:47 Vascepa) Sulfa (Sulfonamide Allergy rash Verified 10/08/24 02:47 Antibiotics) Vital Signs Vital Signs - 24 hr 10/11/24 14:00 10/11/24 16:00 10/11/24 20:00 Temperature 36.9 C Pulse Rate 74 95 76 Respiratory Rate 18 Blood Pressure 118/64 Pulse Oximetry 98 Oxygen Delivery 10/11/24 21:48 10/12/24 00:00 10/12/24 04:52 Temperature 35.9 C L Pulse Rate 82 85 77 Respiratory Rate 18 Blood Pressure 130/65 Pulse Oximetry 99 Oxygen Delivery 10/12/24 06:00 10/12/24 07:30 10/12/24 07:30 Temperature 36.6 C Pulse Rate 88 78 Respiratory Rate 18 Blood Pressure 128/71 Pulse Oximetry 100 Oxygen Delivery Room Air 10/12/24 07:48 10/12/24 07:56 10/12/24 08:15 Temperature 36.6 C Pulse Rate 92 75 76 Respiratory Rate 16 Blood Pressure 124/80 111/68 115/68 Pulse Oximetry 100 Oxygen Delivery 10/12/24 08:30 10/12/24 08:45 10/12/24 09:00 Temperature Pulse Rate 77 69 68 Respiratory Rate Blood Pressure 123/70 122/71 127/65 Pulse Oximetry Oxygen Delivery 10/12/24 09:15 10/12/24 09:30 10/12/24 09:45 Temperature Pulse Rate 67 74 72 Respiratory Rate Blood Pressure 108/71 117/65 111/65 Pulse Oximetry Oxygen Delivery 10/12/24 10:00 10/12/24 10:15 10/12/24 10:30 Temperature Pulse Rate 85 73 70 Respiratory Rate Blood Pressure 109/67 114/66 108/68 Pulse Oximetry Oxygen Delivery 10/12/24 10:45 10/12/24 11:00 10/12/24 11:15 Temperature Pulse Rate 72 78 86 Respiratory Rate Blood Pressure 107/63 105/63 102/65 Pulse Oximetry Oxygen Delivery 10/12/24 11:28 10/12/24 11:34 10/12/24 12:23 Temperature 36.6 C 36.6 C Pulse Rate 86 76 83 Respiratory Rate 16 14 Blood Pressure 103/58 L 110/63 126/65 Pulse Oximetry 99 100 Oxygen Delivery 10/12/24 12:38 Temperature 36.2 C L Pulse Rate 88 Respiratory Rate 14 Blood Pressure 115/89 Pulse Oximetry 100 Oxygen Delivery Exam 2 Narrative: Lungs are clear to auscultation bilaterally Cardiovascular regular rate rhythm no murmurs Abdomen soft nontender nondistended Extremities no edema Results Labs 10/12/24 05:52 10/12/24 05:52 Labs: Short CBC 10/12/24 Range/Units 05:52 WBC 5.0 (4.5-10.0) K/mm3 Hgb 6.8 L* (14.0-18.0) g/dL Hct 21.7 L (42.0-52.0) % Plt Count 148 L (150-375) k/mm3 BMP 10/12/24 05:52 Sodium 139 Potassium 3.5 Chloride 108 H Carbon Dioxide 23 BUN 37 H Creatinine 6.22 H Glucose 83 Calcium 8.5 Liver Function 10/12/24 Range/Units 05:52 Total Bilirubin 0.5 (0.2-1.3) mg/dL AST 31 (17-59) U/L ALT 23 (6-50) U/L Alkaline Phosphatase 56 (38-126) U/L Albumin 2.8 L (3.5-5.1) g/dL
[2024-10-12 14:42] LABS: Vitamin B12 429.0 pg/mL (239-931)
[2024-10-12] MEDS: EPOETIN ALFA-EPBX 20,000 UNITS/ML VIAL 20000 UNITS SUB-Q (18:29)
[2024-10-12] MEDS: PANTOPRAZOLE 40 MG TABLET PO (20:15)
[2024-10-13] VITALS: PULSE 92
[2024-10-13 04:00] VITALS: PULSE 67
[2024-10-13 05:53] LABS: Hematocrit 31.9 % (42.0-52.0); Hemoglobin 10.2 g/dL (14.0-18.0); Immature Granulocyte Percent A 0.4 % (0-0.5); Lymphocytes Absolute Auto 1.02 K/mm3 (0.9-3.2); Mean Corpuscular HGB Conc 32.0 g/dl (32-36); Mean Corpuscular Hemoglobin 28.7 pg (26-34); Mean Corpuscular Volume 89.9 fl (80-100); Nucleated Red Blood Cells Absolute Auto 0.000 K/mm3 (0.0-0.012); Nucleated Red Blood Cells Perc 0.0 % (0.0-0.2); Platelet Count Result 186 k/mm3 (150-375); Red Blood Count 3.55 M/mm3 (4.6-6.20); White Blood Count 5.7 K/mm3 (4.5-10.0)
[2024-10-13] MEDS: LEVOTHYROXINE SODIUM 100 MCG TABLET PO (05:53)
[2024-10-13 06:00] VITALS: BP 133/82; PULSE 75; RESP 20; TEMP 36.4; O2SAT 100
[2024-10-13 06:13] LABS: Alanine Aminotransferase 26 U/L (6-50); Albumin Level 3.4 g/dL (3.5-5.1); Alkaline Phosphatase 69 U/L (38-126); Anion Gap 6 mmol/L (4-12); Aspartate Amino Transferase 39 U/L (17-59); Bilirubin,Total 0.6 mg/dL (0.2-1.3); Blood Urea Nitrogen 17 mg/dL (9-20); Calcium 8.8 mg/dL (8.4-10.2); Carbon Dioxide 29 mmol/L (22-30); Chloride 102 mmol/L (98-107); Estimated CRCL calculation 14 ml/min; Estimated Glomerular Filt Rate 14; Glucose 86 mg/dL (65-110); Magnesium 1.7 mg/dL (1.6-2.3); Potassium 3.7 mmol/L (3.4-5.0); Sodium 137 mmol/L (137-145); Total Protein 6.1 g/dL (6.3-8.2)
[2024-10-13 10:06] VITALS: PULSE 75
[2024-10-13] MEDS: ISOSORBIDE MONONITRATE 30 MG TAB.ER.24H PO (10:06)
[2024-10-13] MEDS: ROSUVASTATIN 5 MG TABLET PO (10:06)
[2024-10-13] MEDS: LOSARTAN POTASSIUM 100 MG TABLET PO (10:06)
[2024-10-13] MEDS: FOLIC ACID 1 MG TABLET PO (10:06)
[2024-10-13] MEDS: ASCORBIC ACID 500 MG TABLET PO (10:06)
[2024-10-13] MEDS: PANTOPRAZOLE 40 MG TABLET PO (10:06)
--- NOTE | 2024-10-13 10:15 | P.PNNP_ITS ---
Progress Note: A&P Assessment and Plan (1) Acute renal failure on dialysis: Code(s): N17.9 - Acute kidney failure, unspecified; Z99.2 - Dependence on renal dialysis Status: Acute Assessment and Plan: * remains dialysis dependent at this time * interestingly, he is making some urine (he was anuric on last hospitalization) * however, still has significant rise in BUN and creatinine between dialysis treatments... * HD tomorrow * continue Sat/Sat/Saturday dialysis schedule while hospitalized * follow electrolytes, volume status and clearance * monitor labs and UOP for possible renal recovery (2) GI bleed: Code(s): K92.2 - Gastrointestinal hemorrhage, unspecified Status: Acute Assessment and Plan: * suspected based on admission history (melena) * low Hgb on admission noted as well * GI recommendations noted: * s/p EGD: no bleeding lesions; mild gastritis that was erythematous, edematous, and with erosive changes * PRBC transfusion per protocol * 5 units transfused since admission * Hem/Onc recommendations noted (3) Tachycardia: Code(s): R00.0 - Tachycardia, unspecified Status: Acute Assessment and Plan: * etiology?? -- due to anemia? * appears to have resolved * follow trend of vital signs (4) Hypertension: Code(s): I10 - Essential (primary) hypertension Status: Chronic Assessment and Plan: * reasonable control at this time * follow trend of hemodynamics (5) Anemia: Code(s): D64.9 - Anemia, unspecified Status: Acute Assessment and Plan: * due in part from ANNA MARIE and CKD * possibly worsened by #2 and necessity of blood thinners for #6 * high dose Epogen with HD * follow trend of H/H * Hem/Onc recommendations noted (6) Coronary artery disease: Code(s): I25.10 - Atherosclerotic heart disease of [place] coronary artery without angina pectoris Status: Acute Assessment and Plan: * NSTEMI on hospitalization last month * status post PCI to 99% in-stent restenoses of ostial LCX on 09/17/2024 * continue medical management * continue supportive therapy Not opposed to discharge from renal perspective if otherwise medically stable -- I will follow-up with him at his outpatient dialysis center/unit. Will continue to follow. 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 Tolerated dialysis treatment yesterday morning without any issues or problems; tolerated PRBC transfusion yesterday as well with improvement in H/H noted; no other events overnight or earlier today; no apparent distress voiced. Exam 2 Narrative: General: elderly but WD/WN male in NAD Heart: normal S1 and S2; no rub Lungs: clear to auscultation Abdomen: soft, nontender, nondistended, positive bowel sounds Extremities: no cyanosis or clubbing; no edema Skin: warm and dry Objective Data Vital Signs Vital Signs: Vital Signs Temp Pulse Resp BP Pulse Ox O2 Del Method FiO2 10/13/24 06:00 97.5 F L 75 20 133/82 100 10/13/24 04:00 67 10/13/24 00:00 92 10/12/24 23:16 99 Room Air 21 10/12/24 22:15 97.9 F 97 20 122/77 100 10/12/24 20:10 95 16 99 Room Air 10/12/24 20:00 96 10/12/24 16:30 97.9 F 95 16 125/67 99 10/12/24 16:00 76 10/12/24 15:55 97.1 F L 76 16 101/60 100 10/12/24 14:55 97.0 F L 86 16 111/57 L 100 10/12/24 14:46 97.0 F L 91 18 114/53 L 100 10/12/24 14:30 97.0 F L 91 18 114/53 L 100 10/12/24 13:38 97.5 F L 81 16 118/51 L 100 10/12/24 13:38 97.5 F L 81 16 118/51 L 100 10/12/24 12:38 97.1 F L 88 14 115/89 100 10/12/24 12:23 97.8 F 83 14 126/65 100 10/12/24 12:00 75 10/12/24 11:34 97.9 F 76 16 110/63 99 10/12/24 11:28 86 103/58 L Intake/Output Intake/Output: Intake & Output 10/10/24 10/11/24 10/12/24 10/13/24 23:59 23:59 23:59 23:59 Intake Total 3630 2060 1130 880 Output Total 1999 Balance 3630 0 -870 880 Meds/Results Medications: Active Medications Generic Name Dose Route Start Last Admin Trade Name Freq PRN Reason Stop Dose Admin Acetaminophen 650 mg 10/08/24 10:26 Acetaminophen 325 Mg Tablet PO Q4H PRN Mild Pain (1-3) or Fever Ascorbic Acid 500 mg 10/09/24 09:00 10/13/24 10:06 Ascorbic Acid 500 Mg Tablet PO 500 mg DAILY ROSALINDA Administration Folic Acid 1 mg 10/09/24 09:00 10/13/24 10:06 Folic Acid 1 Mg Tablet PO 1 mg DAILY [facility] Administration Albumin Human 50 mls @ 999 mls/hr 10/09/24 06:38 Albutein IVPB 11/08/24 06:37 Q10M PRN HYPOTENSION Isosorbide Mononitrate 30 mg 10/09/24 09:00 10/13/24 10:06 Isosorbide Mononitrate 30 Mg Tab.Er.24h PO 30 mg DAILY ROSALINDA Administration Levothyroxine Sodium 100 mcg 10/09/24 06:30 10/13/24 05:53 Levothyroxine Sodium 100 Mcg Tablet PO 100 mcg DAILY@0630 [facility] Administration Losartan Potassium 100 mg 10/09/24 09:00 10/13/24 10:06 Losartan Potassium 100 Mg Tablet PO 100 mg DAILY [facility] Administration Nifedipine 30 mg 10/09/24 09:00 10/13/24 10:06 Nifedipine 30 Mg Tab.Er.24 PO 30 mg DAILY [facility] Administration Nitroglycerin 0.4 mg 10/08/24 10:24 Nitroglycerin Sl 0.4 Mg Tablet SUBLINGUAL Q5MIN PRN Chest Pain Ondansetron HCl 4 mg 10/08/24 10:26 Ondansetron Inj 4 Mg/2 Ml Vial IV PUSH Q6H PRN Nausea And Vomiting Pantoprazole Sodium 40 mg 10/09/24 21:00 10/13/24 10:06 Pantoprazole 40 Mg Tablet PO 40 mg Q12HR ROSALINDA Administration Rosuvastatin Calcium 5 mg 10/09/24 09:00 10/13/24 10:06 Rosuvastatin 5 Mg Tablet PO 5 mg DAILY ROSALINDA Administration Senna/Docusate Sodium 1 tab 10/08/24 21:00 10/12/24 20:15 Senna/Docusate Sodium Tablet PO Not Given HS [facility] Radiology Results: ITS Impressions Chest X-Ray 10/07/24 23:29 IMPRESSION: Left IJ dialysis catheter with a kink near its tip, correlate with function. Subsegmental right basilar atelectasis/consolidation. Mild interstitial edema versus chronic interstitial change. Labs Labs: Laboratory Tests 10/13/24 05:30 10/13/24 05:30 Erythropoietin Pending Total Bilirubin 0.6 AST 39 ALT 26 Alkaline Phosphatase 69 Total Protein 6.1 L Total Protein (PEP) Pending Albumin 3.4 L Albumin (PEP) Pending Globulin (PEP) Pending Albumin/Globulin Ratio Pending [id number] Pending Lwist-9-Oucmnflco Pending Beta Globulins Pending Gamma Globulins Pending IgG Pending IgA Pending IgM Pending Pr Electrophoresis MSpike Pending SIERRA Interpretation Pending
--- NOTE | 2024-10-13 10:15 | PM.PNNEP ---
Progress Note: A&P Assessment and Plan (1) Acute renal failure on dialysis: Code(s): N17.9 - Acute kidney failure, unspecified; Z99.2 - Dependence on renal dialysis Status: Acute Assessment and Plan: remains dialysis dependent at this time interestingly, he is making some urine (he was anuric on last hospitalization) however, still has significant rise in BUN and creatinine between dialysis treatments... HD tomorrow continue Sat/Sat/Saturday dialysis schedule while hospitalized follow electrolytes, volume status and clearance monitor labs and UOP for possible renal recovery (2) GI bleed: Code(s): K92.2 - Gastrointestinal hemorrhage, unspecified Status: Acute Assessment and Plan: suspected based on admission history (melena) low Hgb on admission noted as well GI recommendations noted: s/p EGD: no bleeding lesions; mild gastritis that was erythematous, edematous, and with erosive changes PRBC transfusion per protocol 5 units transfused since admission Hem/Onc recommendations noted (3) Tachycardia: Code(s): R00.0 - Tachycardia, unspecified Status: Acute Assessment and Plan: etiology?? -- due to anemia? appears to have resolved follow trend of vital signs (4) Hypertension: Code(s): I10 - Essential (primary) hypertension Status: Chronic Assessment and Plan: reasonable control at this time follow trend of hemodynamics (5) Anemia: Code(s): D64.9 - Anemia, unspecified Status: Acute Assessment and Plan: due in part from ANNA MARIE and CKD possibly worsened by #2 and necessity of blood thinners for #6 high dose Epogen with HD follow trend of H/H Hem/Onc recommendations noted (6) Coronary artery disease: Code(s): I25.10 - Atherosclerotic heart disease of [place] coronary artery without angina pectoris Status: Acute Assessment and Plan: NSTEMI on hospitalization last month status post PCI to 99% in-stent restenoses of ostial LCX on 09/17/2024 continue medical management continue supportive therapy Not opposed to discharge from renal perspective if otherwise medically stable -- I will follow-up with him at his outpatient dialysis center/unit. Will continue to follow. 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 Tolerated dialysis treatment yesterday morning without any issues or problems; tolerated PRBC transfusion yesterday as well with improvement in H/H noted; no other events overnight or earlier today; no apparent distress voiced. Exam Narrative: General: elderly but WD/WN male in NAD Heart: normal S1 and S2; no rub Lungs: clear to auscultation Abdomen: soft, nontender, nondistended, positive bowel sounds Extremities: no cyanosis or clubbing; no edema Skin: warm and dry Objective Data Vital Signs Vital Signs: Vital Signs Temp Pulse Resp BP Pulse Ox O2 Del Method FiO2 10/13/24 06:00 97.5 F L 75 20 133/82 100 10/13/24 04:00 67 10/13/24 00:00 92 10/12/24 23:16 99 Room Air 21 10/12/24 22:15 97.9 F 97 20 122/77 100 10/12/24 20:10 95 16 99 Room Air 10/12/24 20:00 96 10/12/24 16:30 97.9 F 95 16 125/67 99 10/12/24 16:00 76 10/12/24 15:55 97.1 F L 76 16 101/60 100 10/12/24 14:55 97.0 F L 86 16 111/57 L 100 10/12/24 14:46 97.0 F L 91 18 114/53 L 100 10/12/24 14:30 97.0 F L 91 18 114/53 L 100 10/12/24 13:38 97.5 F L 81 16 118/51 L 100 10/12/24 13:38 97.5 F L 81 16 118/51 L 100 10/12/24 12:38 97.1 F L 88 14 115/89 100 10/12/24 12:23 97.8 F 83 14 126/65 100 10/12/24 12:00 75 10/12/24 11:34 97.9 F 76 16 110/63 99 10/12/24 11:28 86 103/58 L Intake/Output Intake/Output: Intake & Output 10/10/24 10/11/24 10/12/24 10/13/24 23:59 23:59 23:59 23:59 Intake Total 3629 2059 1130 880 Output Total 1999 Balance 3629 2059 -870 880 Meds/Results Medications: Active Medications Generic Name Dose Route Start Last Admin Trade Name Freq PRN Reason Stop Dose Admin Acetaminophen 650 mg 10/08/24 10:26 Acetaminophen 325 Mg Tablet PO Q4H PRN Mild Pain (1-3) or Fever Ascorbic Acid 500 mg 10/09/24 09:00 10/13/24 10:06 Ascorbic Acid 500 Mg Tablet PO 500 mg DAILY [facility] Administration Folic Acid 1 mg 10/09/24 09:00 10/13/24 10:06 Folic Acid 1 Mg Tablet PO 1 mg DAILY ROSALINDA Administration Albumin Human 50 mls @ 999 mls/hr 10/09/24 06:38 Albutein IVPB 11/08/24 06:37 Q10M PRN HYPOTENSION Isosorbide Mononitrate 30 mg 10/09/24 09:00 10/13/24 10:06 Isosorbide Mononitrate 30 Mg Tab.Er.24h PO 30 mg DAILY ROSALINDA Administration Levothyroxine Sodium 100 mcg 10/09/24 06:30 10/13/24 05:53 Levothyroxine Sodium 100 Mcg Tablet PO 100 mcg DAILY@0630 ROSALINDA Administration Losartan Potassium 100 mg 10/09/24 09:00 10/13/24 10:06 Losartan Potassium 100 Mg Tablet PO 100 mg DAILY [facility] Administration Nifedipine 30 mg 10/09/24 09:00 10/13/24 10:06 Nifedipine 30 Mg Tab.Er.24 PO 30 mg DAILY ROSALINDA Administration Nitroglycerin 0.4 mg 10/08/24 10:24 Nitroglycerin Sl 0.4 Mg Tablet SUBLINGUAL Q5MIN PRN Chest Pain Ondansetron HCl 4 mg 10/08/24 10:26 Ondansetron Inj 4 Mg/2 Ml Vial IV PUSH Q6H PRN Nausea And Vomiting Pantoprazole Sodium 40 mg 10/09/24 21:00 10/13/24 10:06 Pantoprazole 40 Mg Tablet PO 40 mg Q12HR [facility] Administration Rosuvastatin Calcium 5 mg 10/09/24 09:00 10/13/24 10:06 Rosuvastatin 5 Mg Tablet PO 5 mg DAILY [facility] Administration Senna/Docusate Sodium 1 tab 10/08/24 21:00 10/12/24 20:15 Senna/Docusate Sodium Tablet PO Not Given HS [facility] Radiology Results: ITS Impressions Chest X-Ray 10/07/24 23:29 IMPRESSION: Left IJ dialysis catheter with a kink near its tip, correlate with function. Subsegmental right basilar atelectasis/consolidation. Mild interstitial edema versus chronic interstitial change. Labs Labs: Laboratory Tests 10/13/24 05:30 10/13/24 05:30 Erythropoietin Pending Total Bilirubin 0.6 AST 39 ALT 26 Alkaline Phosphatase 69 Total Protein 6.1 L Total Protein (PEP) Pending Albumin 3.4 L Albumin (PEP) Pending Globulin (PEP) Pending Albumin/Globulin Ratio Pending Vggse-1-Azeqpdwgt Pending Dpada-9-Ibimfayjr Pending Beta Globulins Pending Gamma Globulins Pending IgG Pending IgA Pending IgM Pending Pr Electrophoresis MSpike Pending SIERRA Interpretation Pending
--- NOTE | 2024-10-13 11:28 | P.DS_ITS ---
DS: Admitting Diagnosis Discharge Date 10/13/2024 Admitting Diagnosis Anemia DS: Discharge Diagnosis Discharge Diagnosis (1) Anemia: Code(s): D64.9 - Anemia, unspecified Status: Acute (2) GI bleed: Code(s): K92.2 - Gastrointestinal hemorrhage, unspecified Status: Acute (3) Acute renal failure on dialysis: Code(s): N17.9 - Acute kidney failure, unspecified; Z99.2 - Dependence on renal dialysis Status: Acute DS: Summary Hospital Course Reason for hospitalization: Fast heart rate Hospital Course: 73-year-old male with history of CAD status post NSTEMI status post PCI to 99% in stent restenoses of ostial LCX on 09/17/2024, ESRD on HD MWF via left tunneled IJ catheter, anemia who presents to [facility] ER on 10/07/2024 reporting a fast heart rate. One day prior to admission the patient was moving garbage around and while he was checking his blood pressure machine as he does every 4 hours his heart rate was slightly high. On the day of admission it was in the 120s therefore he is seeking further evaluation. He has been completely asymptomatic, no dizziness no chest pain or shortness of breath. He has continued to have black stools, about 1 per day. Discharged from [facility] on 09/24/2024 with an NSTEMI with cardiogenic shock in the above- mentioned PCI to the LCX. At that time he was started on dialysis for acute on chronic renal failure. On discharge his hemoglobin was 9.3. Today on presentation it was 6.2. He has been compliant with his medications including ticagrelor and aspirin. He was seen by GI last admission but his hemoglobin was stable therefore conservative management. Again his hemoglobin was 6.2 in the ER. 1 unit of blood currently being infused. His heart rate ranges between 90 and 101. The patient remains asymptomatic. His potassium is 3.1 but no replacement given considering his end-stage renal disease. Serum creatinine 4.72. He has been on track with dialysis and last received it on Saturday10/07/2024. Chest x-ray one view demonstrates left IJ dialysis catheter with a kink near its tip. No node dysfunction as of now. Mild interstitial edema. 10/09/2024 Patient sitting comfortably at time of exam. Undergoing dialysis at time of exam. Denies any pain or concerns at this time. Plan for EGD after dialysis. H/H stable at this time allow slightly lower than post-PRBC transfusion - continue monitoring daily labs. 10/10/2024 EGD yesterday, evidence of gastritis but no acute bleeding, continue PPI daily and to resume blood thinners per Cardiology. Patient otherwise appears stable, on morning labs had hemoglobin of 6.6, receiving 1 unit PRBC at time of exam. Currently patient does feel weak, short of breath, or have any chest pain nausea/vomiting or abdominal pain. Will look for further recommendations from GI, will consult heme/Onc as patient follows Dr. Paniagua in outpatient setting. 10/11/2024 EGD shows evidence of gastritis but no acute bleeding, continue PPI daily and to resume blood thinners per Cardiology. Heme/onc consult pending. Hgb 7.9 today. Still pending heme/onc consult. As pt receives dialysis M/W/F - will have pt stay here to receive dialysis and talk with our heme/onc for any possible further workup. Pt otherwise stable without complaints or concerns at this time. 10/12/2024 Heme/onc consulted - recommending initiated Procrit 52520 units now and having the pt follow up every 2 weeks for repeat injections. They will also add on soluble transferrin receptor, erythropoietin level, serum protein electrophoresis with immunofixation and vitamin B12 level. Hemoglobin dropped to 6.8, ordered 2 additional units PRBC. Continue monitor H&H after transfusions. On 10/13, patient was safe to be discharged. Hemoglobin above 10.0, and has been cleared for discharge from a Nephrology standpoint as well. Patient was seen by Oncology and referred to this clinic and patient agreed with plan of receiving Procrit every 2 weeks. Patient otherwise hemodynamically stable with stable blood work and vital signs. Throughout weekend patient progressed well and any further symptoms since admission to the hospital. Plan for discharge home with home health services. Status at Discharge Functional status at discharge: uses cane/walker Overall status at discharge: patient is progressing back to baseline Time Spent with Patient Time attestation: Total time spent providing and/or coordinating discharge services: 45 Exam Const: General: comfortable and no acute distress HENMT: Mouth: Yes moist mucous membranes Eyes: Pupils: Equal, round and reactive pupils present Neck: Neck: supple Resp: Effort & Inspection: normal respiratory effort Auscultation: clear to auscultation bilaterally Cardio: Rate: regular rate Rhythm: regular rhythm Heart sounds: Murmur heart sound present GI: Inspection: non-distended Neuro: Cranial nerves: Yes Equal, round and reactive pupils present Motor exam (neuro): 5/5 motor strength present throughout Extrem: General: edema (Trace pitting edema bilateral lower extremities around the ankles) DS: Data Data Completed and Pending Completed studies during hospitalization: Pending at discharge 10/09/24 14:30 Surgical [PTH] Routine Labs on day of discharge: Labs from last 24 hours 10/13/24 10/12/24 10/12/24 05:30 07:16 05:52 WBC 5.7 RBC 3.55 L Hgb 10.2 L D Hct 31.9 L MCV 89.9 MCH 28.7 MCHC 32.0 RDW 18.9 H Plt Count 186 MPV 10.8 H Immature Gran % (Auto) 0.4 Neut % (Auto) 69.1 Lymph % (Auto) 17.9 L [place] % (Auto) 7.5 Eos % (Auto) 3.7 Baso % (Auto) 1.4 H Lymph # (Auto) 1.02 [place] # (Auto) 0.4 Eos # (Auto) 0.2 Baso # (Auto) 0.1 Abs Immat Gran (auto) 0.02 Absolute Neuts (auto) 3.9 Absolute Nucleated RBC 0.000 Nucleated RBC % 0.0 Sodium 137 Potassium 3.7 Chloride 102 Carbon Dioxide 29 Anion Gap 6 BUN 17 D Creatinine 4.14 H Estim Creat Clear Calc 14 Estimated GFR 14 L Glucose 86 Calcium 8.8 Magnesium 1.7 Joana Transferrin Receptr Erythropoietin Pending Total Bilirubin 0.6 AST 39 ALT 26 Alkaline Phosphatase 69 Total Protein 6.1 L Total Protein (PEP) Pending Albumin 3.4 L Albumin (PEP) Pending Globulin (PEP) Pending Albumin/Globulin Ratio Pending Lfxvq-0-Ummrituxt Pending Zuzfl-8-Ntvlswekb Pending Beta Globulins Pending Gamma Globulins Pending Vitamin B12 429.0 IgG Pending IgA Pending IgM Pending Pr Electrophoresis MSpike Pending SIERRA Interpretation Pending Blood Type A Negative Antibody Screen Negative Crossmatch See Detail 10/12/24 05:50 WBC RBC Hgb Hct MCV MCH MCHC RDW Plt Count MPV Immature Gran % (Auto) Neut % (Auto) Lymph % (Auto) [place] % (Auto) Eos % (Auto) Baso % (Auto) Lymph # (Auto) [place] # (Auto) Eos # (Auto) Baso # (Auto) Abs Immat Gran (auto) Absolute Neuts (auto) Absolute Nucleated RBC Nucleated RBC % Sodium Potassium Chloride Carbon Dioxide Anion Gap BUN Creatinine Estim Creat Clear Calc Estimated GFR Glucose Calcium Magnesium Joana Transferrin Receptr Pending Erythropoietin Total Bilirubin AST ALT Alkaline Phosphatase Total Protein Total Protein (PEP) Albumin Albumin (PEP) Globulin (PEP) Albumin/Globulin Ratio Lsfgc-4-Uxqkcbeni Hjshu-2-Pdfotfrkf Beta Globulins Gamma Globulins Vitamin B12 IgG IgA IgM Pr Electrophoresis MSpike [facility]ERRA Interpretation Blood Type Antibody Screen Crossmatch Preliminary micro results at discharge 10/08/24 05:09 Blood Culture - Preliminary Blood 10/08/24 06:05 Blood Culture - Preliminary Blood Discharge Plan Discharge Attending physician on discharge: Cornelius Rios Consulting providers: Jordana Infante; James Hudson; Jakub Daly; Quintin Paniagua Discharging Clinician: James Hudson Anticipated Discharge Date/Time: 10/13/24 11:24 Patient Disposition: Home with Home Health Service Discharge Instructions: Per Care Coordination, patient to resume services with [facility] ([phone]) for PT/OT and snf services. Agency will call to arrange readmission visit. Discharge disposition: Home with home health services Take medications as prescribed Monitor blood pressures Take caution while standing, rising, or moving Change positions slowly taking a break between each position change If you standing feel dizzy sit back down and take a break Encouraged to continue with yearly vaccinations Return to the emergency department if he developed sudden shortness of breath, chest pain, nausea, vomiting, upset stomach or intractable diarrhea Return to the emergency department if you develop fever greater than 101.5 Follow-up with the primary care physician within 1-2 weeks Follow-up with Dr. Paniagua with Oncology in 2 weeks for further management of your Procrit Thank you for choosing [facility] for your healthcare needs Patient Instructions: Antibiotic Form, Ticagrelor (By mouth) Patient Language: Ecuadorean Stand Alone Forms: General Discharge Information Follow-up/Referrals: Quintin Paniagua MD [Physician[facility] [Primary Care Provider[facility] - Discharge Medications: Continued rosuvastatin 5 mg tablet 5 mg PO DAILY nifedipine 30 mg tablet extended release 24hr 30 mg PO DAILY ticagrelor [Brilinta] 90 mg Tablet 90 mg PO Q12HR 30 Days Qty: 60 0RF polyethylene glycol 3350 [Miralax] 17 gram Powder In Packet 17 g PO QAM Qty: 30 0RF sennosides-docusate sodium [Senokot-S] 8.6-50 mg Tablet 1 tab PO HS Qty: 30 0RF pantoprazole 40 mg Tablet,Delayed Release (Dr/Ec) 40 mg PO Q12HR Qty: 60 0RF nitroglycerin [Nitrostat] 0.4 mg Tablet, Sublingual 0.4 mg sublingual Q5MIN PRN (Reason: Chest Pain) Qty: 26 0RF aspirin [Children's Aspirin] 81 mg Tablet,Chewable 81 mg PO DAILY@0800 Qty: 30 0RF isosorbide mononitrate 30 mg tablet extended release 24 hr 30 mg PO DAILY losartan 100 mg tablet 100 mg PO DAILY levothyroxine [Synthroid] 100 mcg Tablet 100 mcg PO DAILY ascorbic acid (vitamin C) 500 mg Tablet 500 mg PO DAILY folic acid 1 mg Tablet 1 mg PO DAILY Date of admission: 10/08/24 00:43 Primary Care Provider: Maryanne,Yasmin Admitting Provider: Kathryn Enciso Attending physician on admission: Kathryn Enciso Condition: Stable
[2024-10-14 15:09] LABS: Albumin 3.0 g/dL (2.9-4.4); Alpha-1-Globulin 0.3 g/dL (0.0-0.4); Alpha-2-Globulin 0.8 g/dL (0.4-1.0); Gamma Globulin 0.8 g/dL (0.4-1.8)
[2024-10-15 15:09] LABS: Immunoglobulin A, Qn 233 mg/dL (61-437); Immunoglobulin G, Qn 741 mg/dL (603-1613); Immunoglobulin M, Qn 45 mg/dL (15-143)
== END 2024-10-13 12:20 | disposition home health service (06) | DRG 377 ==
LOC: ANHED 10-08 00:46 → ANH3MED 10-08 01:09
PROVIDERS: Internal Medicine Gastroenterology; Internal Medicine Hematology & Oncology; Nurse Practitioner Family; Admitting Provider General Practice; Emergency Provider Emergency Medicine; PCP Internal Medicine; Visit Provider Physician Assistant
PROC: 0DJ08ZZ Inspection of Upper Intestinal Tract, Via Natural or Artificial Opening Endoscopic (ICD-10-PCS; principal; 2024-10-09 14:30)
DX: K92.2 Gastrointestinal hemorrhage, unspecified (principal); I21.4 Non-ST elevation (NSTEMI) myocardial infarction; N18.6 End stage renal disease; I12.0 Hypertensive chronic kidney disease with stage 5 chronic kidney disease or end stage renal disease; E87.21 Acute metabolic acidosis; N17.9 Acute kidney failure, unspecified; D63.1 Anemia in chronic kidney disease; K29.70 Gastritis, unspecified, without bleeding; E87.6 Hypokalemia; R00.0 Tachycardia, unspecified; I25.10 Atherosclerotic heart disease of native coronary artery without angina pectoris; Z87.891 Personal history of nicotine dependence; Z95.5 Presence of coronary angioplasty implant and graft; Z99.2 Dependence on renal dialysis; I25.2 Old myocardial infarction
CPT/HCPCS: 36415; 36430; 71045; 80053; 82607; 82668; 82784; 83690; 83735; 84155; 84165; 84238; 84484; 85014; 85018; 85025; 85027; 85610; 85730; 86334; 86850; 86900; 86901; 86923; 87040; 87641; 88305; 93005; 99285; A9270; G0257; J1644; J2470; J2704; J7030; J7040; J7050; P9016; Q5105

== ENCOUNTER 2024-10-20 09:07 | Outpatient (CLI) | payer MEDICARE, SELFPAY ==
--- OUTSIDE RECORDS SUMMARY | 2024-10-20 09:33 | XMS_ITS | Clinical Summary ---
Author Organization [facility] Address [facility] [place] [address] Care Team Providers Care Firer Locomotive Crane Name Role Phone Rey Heck MD Primary Care Provider [phone] Randy Bravo MD Unavailable [phone] Bran العراقي DO Unavailable [phone] Dave Parker MD Unavailable Allergies Active Allergy [...] Department Care Team Description 09/24/2024 Orders Only [facility] [address] [place] [address] Ana Hackett NP 09/22/2024 Orders Only [facility] [address] [place] [address] Dinah Stallings MD from Last 3 Months Immunizations Immunization Administration Dates Next Due Influenza, Unspecified 12/09/2016 [employer] ([employer]) SARS-CoV-2 Vaccination 08/25/2020 Surgical History Surgery [...] on file Legal Sex Male 7:30 PM COMMUNITY HEALTH DIRECTOR Gender Identity Not on file Sexual Orientation Not on file 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8 cm (5' 10) 04/10/2024 3:30 PM COMMUNITY HEALTH DIRECTOR Body Mass Index 25.4 04/10/2024 3:30 PM COMMUNITY HEALTH DIRECTOR Plan of Treatment Health Maintenance Due Date [...] Completed 03/31/2018 Medical Devices Implanted Type Area Consulting Practice Director Device Identifier Shelf Expiration Date Model / Serial / Lot [facility] Vas Surgery 4.0 X 30mm [employer] Rapides Rx Coronary Stent [id number] - [id number] Implanted:Qty: 1 on 07/25/2023 by Dave Parker MD at [facility] Surgery 03/30/2026 [id number] / / [id number] [employer] Stent Drug Eluting S Megatron Us Mr 5.00x8mm [id number] - [id number] Implanted:Qty: 1 on 07/25/2023 by Dave Parker MD at [facility] [employer] 10/30/2024 [id number] / / [id number] [employer] Angio-Seal Vip 6fr Closere Device [id number] - [id number] Implanted:Qty: 1 on 07/25/2023 by Dave Parker MD at [facility] [employer] [id number] / / Piedra V[employer] Xact 8-10mm 40mm Self Expand Closed Cell Flare End Freestyle [id number] - [id number] Implanted:Qty: 1 on 04/10/2024 by Varun Zarate MD at [facility] [employer] 09/07/2025 [id number] / / [id number] TerumCiv[employer] Artworks Medical Sulma Angio-Seal Vip 6fr Closere Device [id number] - [id number] Implanted:Qty: 1 on 04/10/2024 by Varun Zarate MD at [facility] Elite Form Sulma 09/17/2024 [id number] / / Procedures Procedure Name Priority Date/Time [...] HEPATITIS C ANTIBODY Routine 03/31/2018 3:12 PM COMMUNITY HEALTH DIRECTOR Porphyria cutanea tarda (HCC) from Last 3 [...] * Hepatitis C antibody (03/31/2018 3:12 PM COMMUNITY HEALTH DIRECTOR) Hep C Ab <0.1 0.0 - 0.9 s/co ratio [facility] - 01 Comment: Negative: < 0.8 Indeterminate: 0.8 - 0.9 Positive: > 0.9 The CDC recommends that a positive HCV antibody result be followed up with a HCV Nucleic Acid Amplification test (457930). Blood specimen (specimen) 03/31/2018 3:12 PM COMMUNITY HEALTH DIRECTOR 03/31/2018 Narrative [facility] - 04/01/2018 8:31 AM COMMUNITY HEALTH DIRECTOR Performed at: - [facility] [id number] Automobile Mechanic Radiator: Mihir Paul PhD, Phone: [phone] Bran العراقي DO LAB MICROBIOLOGY - GENERAL O RDERABLES Final Result [facility] - 01 from Last 3 Months or Most Recently Relevant to Health Maintenance Insurance HUMANA CHOICE MEDICARE PPO HUMANA MEDICARE HMO Advance Directives For more information, please contact: [phone] * Full Code (Latest Code Status on File) Date Activated Date Inactivated Comments 04/10/2024 11:03 AM 04/11/2024 7:10 PM * Full Code Date Activated Date Inactivated Comments 07/25/2023 10:42 AM 07/26/2023 6:13 PM Care Teams Firer Locomotive Crane Relationship Specialty Start Date End Date Rey Heck MD PCP - General Internal Medicine 01/16/18 Randy Bravo MD Dermatology 01/20/18 Bran العراقي DO [address] [place] [address] Medical Oncologist/Hematologis t Hematology and Oncology 06/11/18 Dave Parker MD [address] [place] [address] Consulting Physician Cardiovascular Disease 07/26/23
--- OUTSIDE RECORDS SUMMARY | 2024-10-20 09:33 | XMS_ITS ---
Author Organization [facility] Address [address] [place] [address] Care Team Providers Care Hull Inspector Name Role Phone Robert Shultz Unavailable [phone] Problems Problem Type SNOMED Code ICD Code Onset Dates Problem Status W/U Status Risk Notes Problem Diabetic renal disease (744156495) Type 2 diabetes mellitus with diabetic chronic kidney disease (E11.22) Active confirmed Problem Renal osteodystrophy (35270921) Renal osteodystrophy (N25.0) Active confirmed Problem Secondary hyperparathyroidism of renal origin (87119125) Secondary hyperparathyroidism of renal origin (N25.81) Active confirmed Problem Proteinuria (57790240) Proteinuria, unspecified (R80.9) Active confirmed Encounters Encounter Location Date Provider Diagnosis [facility] [address] [facility] [address] [place] [address] 07/22/2024 Robert Shultz Chronic kidney disea se, [...] * MALU MENDIOLADOB: 0 (73 yo M)Acc No.[id number]:07/22/2024 Progress Notes Patient: MALU JIMENES Provider: Regis SIDDIQUI MD, F.A.C.P, F.A.S.N. :1950 A ge:73 Y S ex:Male Date:07/22/2024 Address:[address] [place] [address] Subjective: * Chief Complaints: * * Medical [...] Treatment: * Billing Information: * Visit Code: 46865 Office Visit, Est Pt., Level 4. * Procedure Codes: * Electronic signature of Gaudencio Shultz MD on 10/20/2024 at 09:33 AM CDT Sign off status: Pending * Provider: Regis SIDDIQUI MD, F.A.C.P, F.A.S.N. Date: 0 07/22/2024 Generated for Printing/Faxing/eTransmitting on: 0 10/20/2024 09:33 AM CDT
--- OUTSIDE RECORDS SUMMARY | 2024-10-20 09:33 | XMS_ITS | Clinical Summary ---
Author Organization [facility] Address [address] [place] [address] Phone Care Team Providers Care Women'S Lacrosse Coach Name Role Phone Rey Heck MD Primary Care Provider [phone] Social History Tobacco Use Types Packs/Day Years [...] topic Insurance MEDICARE C HUMANA Care Teams Women'S Lacrosse Coach Relationship Specialty Start Date End Date Rey Heck MD PCP - General Internal Medicine 03/18/18
--- OUTSIDE RECORDS SUMMARY | 2024-10-20 09:33 | XMS_ITS | Patient Health Record ---
Author Organization [facility] Address [address] [place] [address] Care Team Providers Care Surgical Services Assistant Name Role Phone Robert Shultz Unavailable [phone] Reason For Referral No Information Medications Medication SIG (Take, Route, Frequency, Duration) Notes Start Date End Date Status Calcitriol 0.25 MCG 1 capsule Orally Onc e a day; Duration: 90 day(s) 07/22/2024 04/17/2025 Active Ergocalciferol 1.25 MG (68346 UT) 1 capsule Orally Once a week; Duration: 30 days 07/22/2024 11/19/2024 Active Losartan Potassium 25 MG 1 tablet Orally Once a day; Duration: 90 day(s) 07/22/2024 Active Problems Problem Type SNOMED Code ICD Code Onset Dates Problem Status W/U Status Risk Notes Problem Diabetic renal disease (777908003) Type 2 diabetes mellitus with diabetic chronic kidney disease (E11.22) Active confirmed Problem Hyperlipidemia (56845086) Hyperlipidemia, unspecified (E78.5) Active confirmed Problem Cardiomyopathy (69665547) Cardiomyopathy, unspecified (I42.9) Active confirmed Problem Gastro-esophageal reflux disease without esophagitis (304529123) Gastro-esophageal reflux disease without esophagitis (K21.9) Active confirmed Problem Chronic kidney disease stage 4 (547024857) Chronic kidney disease, stage 4 (severe) (N18.4) Active confirmed Problem Renal osteodystrophy (01243005) Renal osteodystrophy (N25.0) Active confirmed Problem Secondary hyperparathyroidism of renal origin (35023003) Secondary hyperparathyroidism of renal origin (N25.81) Active confirmed Problem Proteinuria (47400245) Proteinuria, unspecified (R80.9) Active confirmed Problem Essential hypertension (74353388) Essential hypertension (I10) Active confirmed Problem Coronary artery disease (30641795) CAD (coronary artery disease) (I25.10) Active confirmed Encounters Encounter Location Date Provider Diagnosis [facility] [address] [address] 06/24/2024 Robert Shultz Chronic kidney disea se, stage 3 unspecified N18.30 ; Essential hypertension I10 ; Gastro-esophageal reflux disease without esophagitis K21.9 ; Hyperlipidemia, unspecified E78.5 ; CAD (coronary artery disease) I25.10 and Cardiomyopathy, unspecified I42.9 [facility] [address] [place] [address] 07/22/2024 Robert Shultz Chronic kidney disea se, stage 3a N18.31 ; Essential hypertension I10 ; Gastro-esophageal reflux disease without esophagitis K21.9 ; Hyperlipidemia, unspecified E78.5 ; CAD (coronary artery disease) I25.10 ; Cardiomyopathy, unspecified I42.9 ; Type 2 diabetes mellitus with diabetic chronic kidney disease E11.22 ; Renal osteodystrophy N25.0 ; Secondary hyperparathyroidism of renal origin N25.81 and Proteinuria, unspecified R80.9 [facility] [address] [place] [address] 09/02/2024 Robert Shultz Chronic kidney disea se, stage 4 (severe) N18.4 ; Essential hypertension I10 ; Gastro-esophageal reflux disease without esophagitis K21.9 ; Hyperlipidemia, unspecified E78.5 ; CAD (coronary artery disease) I25.10 ; Cardiomyopathy, unspecified I42.9 ; Type 2 diabetes mellitus with diabetic chronic kidney disease E11.22 ; Renal osteodystrophy N25.0 ; Secondary hyperparathyroidism of renal origin N25.81 and Proteinuria, unspecified R80.9 [facility] [address] [place] [address] 07/22/2024 Robert Shultz Assessments Encounter Date Diagnosis [...]
--- OUTSIDE RECORDS SUMMARY | 2024-10-20 09:33 | XMS_ITS | Encounter Summary ---
Author Organization [facility] Address [address] [facility] [place] [address] Care Team Providers Care Coil Wrapper Name Role Phone Unavailable Primary Care Provider Unavailabl e Encounter Details Date Type Department Care Team (Late st Contact Info) Description 06/17/2024 Lab Requisition [facility] - DermPath Lab [address] [place] [phone] Randy Bravo MD [facility] DERMATOLOGY [address] [place] [phone] Neoplasm of uncertain behavior of skin Social History Tobacco Use Types Packs/Day Years Used Date Smoking Tobacco: Never Assessed Sex and Gender Information Value Date Recorded Sex Assigned at Not on file Legal Sex Male 4:35 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 Gender Identity Not on file Sexual Orientation Not on file documented as of this encounter Plan of Treatment Not on file documented as of this encounter Procedures Procedure Name Priority Date/Time Associated Diagnosis Comments DERMATOPATHOLOGY Routine 06/17/2024 3:33 AM CDT Neoplasm of uncertain behavior of skin documented in this encounter Results * DERMATOPATHOLOGY (06/17/2024 3:33 AM CDT) Case Report Dermatopathology Report Case: [id number] Authorizing Provider: Randy Bravo MD Collected: 06/17/2024 03:33 AM Ordering Location: [facility] - Received: 06/18/2024 12:37 PM [...] characteristic determined by the Dermatopathology Laboratory at [facility], directed by Dr. Hoa Zayas. These tests need not be, and therefore are not, approved by the [place] Food and Drug Administration. The tests are used for clinical purposes. Billing Codes Specimen Charges Stain Charges 01983 1 1:05 PM CDT DERMATOPATHOLOGY LABORATORY Embedded Images 1:05 PM CDT DERMATOPATHOLOGY LABORATORY Pathology/Cytolo gy TISSUE SPECIMEN FROM SKIN / Unknown 06/17/2024 3:33 AM CDT 06/18/2024 12:37 PM CDT Randy Bravo MD LAB - PATHOLOGY/CYTOLOGY ORDE FRANCIE Final Result DERMATOPATHOLOGY LABORATORY [facility] - Department of Dermatology [address], [address] [phone] documented in this encounter Visit Diagnoses Diagnosis Neoplasm of uncertain behavior of skin documented in this encounter
--- OUTSIDE RECORDS SUMMARY | 2024-10-20 09:33 | XMS_ITS | Clinical Summary ---
Author Organization [facility] Address [address] [place] [address] Care Team Providers Care Strainer Cleaner Name Role Phone Yasmin Madden MD Primary [...] Comments Blood Pressure 143/80 04/01/2024 1:17 PM HOG PUSHER Pulse 76 04/01/2024 1:15 PM HOG PUSHER Temperature 36.7 C (98.1 F) 04/01/2024 1:15 PM HOG PUSHER Respiratory Rate 15 04/01/2024 1:15 PM HOG PUSHER Oxygen Saturation 97% 04/01/2024 1:15 PM HOG PUSHER Inhaled Oxygen Concentration - - Weight 81.6 kg (179 lb 12.8 oz) 04/01/2024 1:15 PM HOG PUSHER Height 175.3 cm (5' 9) 06/27/2023 10:0 1 AM CDT Body Mass Index 26.55 06/27/2023 10:01 AM CDT Plan of Treatment Upcoming Encounters Date Type Department Care Team (Late st Contact Info) Description 10/20/2024 10:00 AM CDT Office Visit [facility] Oncology and Hematology - [place] [address] [facility] [address] [place] [address] Quintin Paniagua MD [address] [facility] [address] [place] [address] Arrived Health Maintenance Due Date Last Done Comments DTAP/TDAP/TD VACCINES (1 - Tdap) 1968 COLORECTAL SCREENING 1994 Colorectal Cancer Screening 1994 FIT-DNA Q 3 years 1994 FIT/FOBT Q 1 year 1994 Flex Sig/CT Colonography Q 5 years 1994 ZOSTER VACCINE (1 of 2) 10/28/1999 RSV VACCINE (60+ or ) (1 - Risk 60-74 years 1-dose series) 2009 COVID-19 Vaccine ( season) 2023, 08/25/2020 [place] Prev entative Visit/Annual Wellness Visit 03/11/2024 10/21/2023 INFLUENZA VACCINE (#1) 2024 01/27/2024 PNEUMOCOCCAL VACCINE 50+ YEARS Completed 05/06/2023 Abdominal Aortic Aneurysm (AAA) Screening Completed 05/15/2023 Insurance [employer] [facility] Care Teams Strainer Cleaner Relationship Specialty Start Date End Date Yasmin Madden MD PCP - General Internal Medicine 06/27/23
--- OUTSIDE RECORDS SUMMARY | 2024-10-20 09:33 | XMS_ITS | Encounter Summary ---
Author Organization [facility] Address [address] [facility] [place] [address] Care Team Providers Care Silk Opener Name Role Phone Unavailable Primary Care Provider Unavailabl e Encounter Details Date Type Department Care Team (Late st Contact Info) Description 04/30/2023 Lab Requisition [facility] - DermPath Lab [address] [place] [address] Randy Bravo MD [facility] DERMATOLOGY [address] [place] [phone] Neoplasm of uncertain behavior of skin Social History Tobacco Use Types Packs/Day Years Used Date Smoking Tobacco: Never Assessed Sex and Gender Information Value Date Recorded Sex Assigned at Not on file 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 Gender Identity Not on file Sexual Orientation Not on file documented as of this encounter Plan of Treatment Not on file documented as of this encounter Procedures Procedure Name Priority Date/Time Associated Diagnosis Comments DERMATOPATHOLOGY Routine 04/30/2023 3:33 AM WASH TUB MACHINE OPERATOR Neoplasm of uncertain behavior of skin documented in this encounter Results * DERMATOPATHOLOGY (04/30/2023 3:33 AM WASH TUB MACHINE OPERATOR) Case Report Dermatopathology Report Case: [id number] Authorizing Provider: Randy Bravo MD Collected: 04/30/2023 03:33 AM Ordering Location: [facility] DermPath Lab Received: 05/01/2023 01:16 PM Pathologist: Latrice Thibodeaux MD Specimens: A) - Skin, left hand B) - Skin, left ear 2:31 PM WASH TUB MACHINE OPERATOR DERMATOPATHOLOGY LABORATORY Final Diagnosis Specimen A. SKIN, left hand: SUPERFICIAL (FOCALLY INVASIVE) SQUAMOUS CELL CARCINOMA ARISING IN AN ACTINIC KERATOSIS (C44.629) Specimen B. SKIN, left ear: BASAL CELL CARCINOMA, FRAGMENTS OF (C44.219) (see microscopic description) 2:31 PM [facility] DERMATOPATHOLOGY LABORATORY at [address] WASH TUB MACHINE OPERATOR Clinical History A: Squamous Cell Carcinoma B: Basal Cell Carcinoma 2:31 PM [facility] DERMATOPATHOLOGY LABORATORY Gross Description Specimen A: Received [...] measuring 2x1x1 mm. Jar 0. 2:31 PM [facility] DERMATOPATHOLOGY LABORATORY Microscopic Description Specimen A. SKIN, [...] sections were obtained and reviewed. 2:31 PM [facility] DERMATOPATHOLOGY LABORATORY Disclaimer An external and internal positive and negative controls are appropriate for the histochemical, immunohistochemical and immunofluorescence stain(s) in this case (if any), except where stated explicitly. The performance characteristics of the stain(s) cited in this report were developed and its performance characteristic determined by the Dermatopathology Laboratory at [facility], directed by Dr. Hoa Zayas. These tests need not be, and therefore are not, approved by the [place] Food and Drug Administration. The tests are used for clinical purposes. Billing Codes Specimen Charges Stain Charges 72721 80159 1 1 51016 1 2:31 PM [facility] DERMATOPATHOLOGY LABORATORY Embedded Images 2:31 PM [facility] DERMATOPATHOLOGY LABORATORY Pathology/Cytology TISSUE SPECIMEN FROM SKIN / Unknown 04/30/2023 3:33 AM WASH TUB MACHINE OPERATOR 05/01/2023 1:16 PM WASH TUB MACHINE OPERATOR Miscellaneous samples (specimen) TISSUE SPECIMEN FROM SKIN / Unknown 04/30/2023 3:33 AM WASH TUB MACHINE OPERATOR 05/01/2023 1:29 PM WASH TUB MACHINE OPERATOR us Randy Bravo MD LAB - PATHOLOGY/CYTOLOGY GIBRAN MARMOLEJO Final Result DERMATOPATHOLOGY LABORATORY [facility] - Department of Dermatology [facility] Medicine [address] [place] [address], [address] [phone] documented in this encounter Visit Diagnoses Diagnosis Neoplasm of uncertain behavior of skin documented in this encounter
--- OUTSIDE RECORDS SUMMARY | 2024-10-20 09:33 | XMS_ITS ---
Author Organization [facility] Address [address] [place] [address] Care Team Providers Care Veterinary Parasitologist Name Role Phone Carrington Robert Unavailable [phone] Problems Problem Type SNOMED Code ICD Code Onset Dates Problem Status W/U Status Risk Notes Problem Essential hypertension (77519969) Essential hypertension (I10) Active confirmed Problem Gastro-esophageal reflux disease without esophagitis (638281263) Gastro-esophagea l reflux disease without esophagitis (K21.9) Active confirmed Problem Hyperlipidemia (55761951) Hyperlipidemia, unspecified (E78.5) Active confirmed Problem CAD (coronary artery disease) (I25.10) Active confirmed Problem Cardiomyopathy (27185227) Cardiomyopathy, unspecified (I42.9) Active confirmed Encounters Encounter Location Date Provider Diagnosis [facility] [address] [facility] [address] [place] [address] 06/24/2024 Robert Shultz Chronic kidney disease, stage [...] Of Treatment No Information Progress Notes * YVETTE EMNDIOLA: 0 (73 yo M)Acc No.[id number]:06/24/2024 Progress Notes Patient: MALU JIMENES Provider: Regis SIDDIQUI MD, Saranya.Carlos.C.P, F.A.S.N. :1950 A ge:73 Y S ex:Male Date:06/24/2024 Address:[address] [place] [address] Subjective: * Chief Complaints: * * Medical [...] Treatment: * Billing Information: * Visit Code: 38146 Office Visit, New Pt., Level 5. * Procedure Codes: * Electronic signature of Gaudencio Shultz MD on 10/20/2024 at 09:32 AM CDT Sign off status: Pending * Provider: Regis SIDDIQUI MD, F.Carlos.C.P, F.A.S.N. Date: 0 06/24/2024 Generated for Printing/Faxing/eTransmitting on: 0 10/20/2024 09:32 AM CDT
--- OUTSIDE RECORDS SUMMARY | 2024-10-20 09:33 | XMS_ITS ---
Author Organization [facility] Address [address] [place] [address] [place] [address] Care Team Providers Care Supervisor Metal Hanging Name Role Phone Shultz Robert Unavailable [phone] Problems Problem Type SNOMED Code ICD Code Onset Dates Problem Status W/U Status Risk Notes Problem Chronic kidney disease stage 4 (264340449) Chronic kidney disease, stage 4 (severe) (N18.4) Active confirmed Encounters Encounter Location Date Provider Diagnosis [facility] [address] [facility] [address] [place] [address] 09/02/2024 Robert Shultz Chronic kidney disea se, [...] * MALU MENDIOLADOB: 0 (73 yo M)Acc No.[id number]:09/02/2024 Patient: MALU JIMENES Provider: Regis SIDDIQUI MD, F.Carlos.C.P, F.A.S.N. :1950 A ge:73 Y S ex:Male Date:09/02/2024 Address:[address] [place] [address] Subjective: * Chief Complaints: Objective: Assessment: * [...] Plan: * Billing Information: * Visit Code: 72906 Office Visit, Est Pt., Level 5. * Procedure Codes: * Electronic signature of Gaudencio Shultz MD on 10/20/2024 at 09:33 AM CDT Sign off status: Pending * Provider: Regis SIDDIQUI MD, F.A.C.P, F.A.S.N. Date: 0 09/02/2024 Generated for Printing/Faxing/eTransmitting on: 0 10/20/2024 09:33 AM CDT
--- OUTSIDE RECORDS SUMMARY | 2024-10-20 09:33 | XMS_ITS | Clinical Summary ---
Author Organization [facility] Address [address] [facility] [address] [place] [address] Care Team Providers Care Manager Of Clinical Name Role Phone Unavailable Primary Care Provider Unavailabl e Source Comments [facility],non-owned Affiliates and Associated Physician Practices is amultiple site organization consisting of ambulatory clinics and hospital sitesin [place], [place], [place] and [place]. This disclosure is being madepursuant to the Care Everywhere program and may not contain all information available regarding this patient. 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
[2024-10-20 09:36] LABS: Hematocrit 35.5 % (42.0-52.0); Hemoglobin 11.2 g/dL (14.0-18.0); Mean Corpuscular HGB Conc 31.5 g/dl (32-36); Mean Corpuscular Hemoglobin 29.5 pg (26-34); Mean Corpuscular Volume 93.4 fl (80-100); Platelet Count Result 198 k/mm3 (150-375); Red Blood Count 3.80 M/mm3 (4.6-6.20); White Blood Count 7.3 K/mm3 (4.5-10.0)
[2024-10-20 09:44] LABS: Blood Urea Nitrogen 15 mg/dL (8-26); Carbon Dioxide 27 mmol/L (22-30); Chloride 98 mmol/L (98-109); Estimated Glomerular Filt Rate 14; Glucose 103 mg/dL (70-105); Ionized Calcium (POC) 1.18 mmol/L (1.11-1.31); Potassium 3.3 mmol/L (3.5-4.9); Sodium 139 mmol/L (138-146)
[2024-10-20 10:10] LABS: Alanine Aminotransferase 22 U/L (6-50); Albumin Level 3.9 g/dL (3.5-5.1); Alkaline Phosphatase 73 U/L (38-126); Anion Gap 8 mmol/L (4-12); Aspartate Amino Transferase 44 U/L (17-59); Bilirubin,Total 1.0 mg/dL (0.2-1.3); Blood Urea Nitrogen 16 mg/dL (9-20); Calcium 9.2 mg/dL (8.4-10.2); Carbon Dioxide 30 mmol/L (22-30); Chloride 99 mmol/L (98-107); Estimated Glomerular Filt Rate 14; Glucose 106 mg/dL (65-110); Potassium 3.4 mmol/L (3.4-5.0); Sodium 137 mmol/L (137-145); Total Protein 6.9 g/dL (6.3-8.2)
== END 2024-10-20 09:08 | disposition home or self-care (01) ==
PROVIDERS: PCP Internal Medicine; Visit Provider Internal Medicine Hematology & Oncology
DX: E83.19 Other disorders of iron metabolism (principal)
CPT/HCPCS: 36415; 80047; 80053; 85027

== ENCOUNTER 2024-11-04 09:10 | Outpatient (CLI) | payer MEDICARE, SELFPAY ==
--- OUTSIDE RECORDS SUMMARY | 2004-07-22 05:45 | XMS_ITS | Continuity of Care Document ---
Author Organization [facility] Address [address] [facility] [address] [place] [address] Phone Care Team Providers Care Manager Client Support Name Role Phone Rm OD, Esteban Unavailable Unavailable Advance Directives Directive Yes / No Effective Date File Name No Information Encounters Encounter Description Practice Location Reason(s) For Visit Diagnoses Date Provider Providers Copied on Encounter [facility], [address], [place], [place], [address], [place] tel:[phone] [facility] No Information 4-200 5 Rm OD Esteban. [address] , [address], [place], [address], [place]. tel:[phone] Family History Family Member Type Diagnosis Age At Onset No Information Payers Payer name Insurance type Covered alliance party ID Authoriza tion(s) Nigerien [facility] [id number] Social History Type Description Quantity Date Captured [...]
--- OUTSIDE RECORDS SUMMARY | 2024-06-24 10:15 | XMS_ITS ---
Author Organization [facility] Address [address] [facility] [address] [facility] [address] [place] [address] Care Team Providers Care Medical Technologist Hematology Name Role Phone Carrington Robert Unavailable [phone] Problems Problem Type SNOMED Code ICD Code Onset Dates Problem Status W/U Status Risk Notes Problem Essential hypertension (39613951) Essential hypertension (I10) Active confirmed Problem Gastro-esophageal reflux disease without esophagitis (505219625) Gastro-esophagea l reflux disease without esophagitis (K21.9) Active confirmed Problem Hyperlipidemia (41720125) Hyperlipidemia, unspecified (E78.5) Active confirmed Problem Coronary artery disease (94561043) CAD (coronary artery disease) (I25.10) Active confirmed Problem Cardiomyopathy (09216628) Cardiomyopathy, unspecified (I42.9) Active confirmed Encounters Encounter Location Date Provider Diagnosis [facility] [address] [facility] [address] [place] [address] 06/24/2024 Robert Shultz Chronic kidney disease, stage 3 unspecified N18.30 ; Essential hypertension I10 ; Gastro-esophageal reflux disease without esophagitis K21.9 ; Hyperlipidemia, unspecified E78.5 ; CAD (coronary artery disease) I25.10 and Cardiomyopathy, unspecified I42.9 Assessments Encounter Date Diagnosis (ICD Code) Assessment Notes Treatment Notes Treatment Clinical Notes Section Notes 06/24/2024 Chronic kidney disease, stage 3 unspecified (ICD-10 - N18.30) 06/24/2024 Essential hypertension (ICD-10 - I10) 06/24/2024 Gastro-esophageal reflux disease without esophagitis (ICD-10 - K21.9) 06/24/2024 Hyperlipidemia, unspecified (ICD-10 - E78.5) 06/24/2024 CAD (coronary artery disease) (ICD-10 - I25.10) 06/24/2024 Cardiomyopathy, unspecified (ICD-10 - I42.9) Plan Of Treatment No Information Progress Notes * MALU MENDIOLADOB: 0 (74 yo M)Acc No.[id number]:06/24/2024 Progress Notes Patient: MALU JIMENES Provider: Regis SIDDIQUI MD, Saranya.Carlos.Jose Manuel.P, F.A.S.N. :1950 A ge:73 Y S ex:Male Date:06/24/2024 Address:[address] [place] [address] Subjective: * Chief Complaints: * * Medical History: Objective: * Vitals: Assessment: * Assessment: 1. C hronic kidney disease, stage 3 unspecified - N18.30 (Primary) 2 . E ssential hypertension - I10 3 . G kai-esophageal reflux disease without esophagitis - K21.9 4 . H yperlipidemia, unspecified - E78.5 5 . C AD (coronary artery disease) - I25.10 6 . C ardiomyopathy, unspecified - I42.9? Plan: * Treatment: * Billing Information: * Visit Code: 77171 Office Visit, New Pt., Level 5. * Procedure Codes: * Electronic signature of Gaudencio Shultz MD on 11/04/2024 at 09:18 AM CDT Sign off status: Pending * Provider: Regis SIDDIQUI MD, Saranya.Carlos.Jose Manuel.P, F.A.S.N. Date: 0 06/24/2024 Generated for Printing/Faxing/eTransmitting on: 0 11/04/2024 09:18 AM CDT
--- OUTSIDE RECORDS SUMMARY | 2024-07-22 10:30 | XMS_ITS ---
Author Organization [facility] Address [address] [place] [address] Care Team Providers Care Log Cooker Name Role Phone Robert Shultz Unavailable [phone] Problems Problem Type SNOMED Code ICD Code Onset Dates Problem Status W/U Status Risk Notes Problem Diabetic renal disease (682731398) Type 2 diabetes mellitus with diabetic chronic kidney disease (E11.22) Active confirmed Problem Renal osteodystrophy (39534658) Renal osteodystrophy (N25.0) Active confirmed Problem Secondary hyperparathyroidism of renal origin (13466350) Secondary hyperparathyroidism of renal origin (N25.81) Active confirmed Problem Proteinuria (90588909) Proteinuria, unspecified (R80.9) Active confirmed Encounters Encounter Location Date Provider Diagnosis [place] [facility] [address] [facility] 15 [place] [address] 07/22/2024 Robert Shultz Chronic kidney disea se, [...] * MALU MENDIOLADOB: 0 (74 yo M)Acc No.[id number]:07/22/2024 Progress Notes Patient: MALU JIMENES Provider: Regis SIDDIQUI MD, F.A.C.P, F.A.S.N. :1950 A ge:73 Y S ex:Male Date:07/22/2024 Address:[address] [place] [address] Subjective: * Chief Complaints: * * Medical [...] Treatment: * Billing Information: * Visit Code: 51697 Office Visit, Est Pt., Level 4. * Procedure Codes: * Electronic signature of Gaudencio Shultz MD on 11/04/2024 at 09:19 AM CDT Sign off status: Pending * Provider: Regis SIDDIQUI MD, F.A.C.P, F.A.S.N. Date: 0 07/22/2024 Generated for Printing/Faxing/eTransmitting on: 0 11/04/2024 09:19 AM CDT
--- OUTSIDE RECORDS SUMMARY | 2024-09-02 12:30 | XMS_ITS ---
Author Organization [facility] Address [address] [address] [place] [address] Care Team Providers Care Child Neurologist Name Role Phone Carrington Robert Unavailable [phone] Problems Problem Type SNOMED Code ICD Code Onset Dates Problem Status W/U Status Risk Notes Problem Chronic kidney disease, stage 4 (severe) (N18.4) Active confirmed Encounters Encounter Location Date Provider Diagnosis [place] [facility] [address] [facility] 15 [place] [address] 09/02/2024 Robert Shultz Chronic kidney disea se, [...] * MALU MENDIOLADOB: 0 (74 yo M)Acc No.[id number]:09/02/2024 Patient: MALU JIMENES Provider: Regis SIDDIQUI MD, F.Carlos.C.P, F.A.S.N. :1950 A ge:73 Y S ex:Male Date:09/02/2024 Address:[address] [place] [address] Subjective: * Chief Complaints: Objective: Assessment: * [...] Plan: * Billing Information: * Visit Code: 96827 Office Visit, Est Pt., Level 5. * Procedure Codes: * Electronic signature of Gaudencio Shultz MD on 11/04/2024 at 09:18 AM CDT Sign off status: Pending * Provider: Reigs SIDDIQUI MD, F.Carlos.C.P, F.A.S.N. Date: 0 09/02/2024 Generated for Printing/Faxing/eTransmitting on: 0 11/04/2024 09:18 AM CDT
--- OUTSIDE RECORDS SUMMARY | 2024-11-04 09:18 | XMS_ITS | Clinical Summary ---
Author Organization [facility] Address [facility] [place] [address] Care Team Providers Care Public Finance Specialist Name Role Phone Rey Heck MD Primary Care Provider + [phone] Randy Bravo MD Unavailable [phone] Bran العراقي DO Unavailable [phone] Dave Parker MD Unavailable Allergies Active Allergy [...] Department Care Team Description 09/24/2024 Orders Only [facility] Cardiology [address] [place] [address] Ana Hackett NP 09/22/2024 Orders Only [facility] Cardiology [address] [place] [address] Dinah Stallings MD from Last 3 Months Immunizations Immunization Administration Dates Next Due Influenza, Unspecified 12/09/2016 [employer] (J&J) SARS-CoV-2 Vaccination 08/25/2020 Surgical History Surgery [...] on file Legal Sex Male 7:30 PM LINE SUPERVISOR Gender Identity Not on file Sexual Orientation Not on file 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 Not on file Not on file Obstetrics History Last Filed Vital Signs Vital Sign Reading Time Taken Comments Blood Pressure 101/57 04/11/2024 8:59 AM LINE SUPERVISOR Pulse 65 04/11/2024 8:59 AM LINE SUPERVISOR Temperature 37.1 C (98.8 F) 04/11/2024 8:59 AM LINE SUPERVISOR Respiratory Rate 17 04/11/2024 8:59 AM LINE SUPERVISOR Oxygen Saturation 96% 04/11/2024 8:59 AM LINE SUPERVISOR Inhaled Oxygen Concentration - - Weight 80.3 kg (177 lb) 04/10/2024 3:30 PM LINE SUPERVISOR Height 177.8 cm (5' 10) 04/10/2024 3:30 PM LINE SUPERVISOR Body Mass Index 25.4 04/10/2024 3:30 PM LINE SUPERVISOR Plan of Treatment Health Maintenance Due Date [...] Completed 03/31/2018 Medical Devices Implanted Type Area Student Finance Specialist Device Identifier Shelf Expiration Date Model / Serial / Lot [facility] Vas Surgery 4.0 X 30mm [place] Rx Coronary Stent [id number] - [id number] Implanted:Qty: 1 on 07/25/2023 by Dave Parker MD at [facility] Surgery 03/30/2026 [id number] / / [id number] [employer] Stent Drug Eluting S Megatron Us Mr 5.00x8mm [id number] - [id number] Implanted:Qty: 1 on 07/25/2023 by Dave Parker MD at [facility] [employer] 10/30/2024 [id number] / / [id number] [employer] Angio-Seal Vip 6fr Closere Device [id number] - [id number] Implanted:Qty: 1 on 07/25/2023 by Dave Parker MD at [facility] [employer] [id number] / / Piedra V[employer] Xact 8-10mm 40mm Self Expand Closed Cell Flare End Freestyle [id number] - [id number] Implanted:Qty: 1 on 04/10/2024 by Varun Zarate MD at [facility] [employer] 09/07/2025 [id number] / / [id number] [employer] [place] Angio-Seal Vip 6fr Closere Device [id number] - [id number] Implanted:Qty: 1 on 04/10/2024 by Varun Zarate MD at [facility] [employer] Sulma 09/17/2024 [id number] / / Procedures Procedure Name Priority Date/Time [...] HEPATITIS C ANTIBODY Routine 03/31/2018 3:12 PM LINE SUPERVISOR Porphyria cutanea tarda (HCC) from Last [...] * Hepatitis C antibody (03/31/2018 3:12 PM LINE SUPERVISOR) Hep C Ab <0.1 0.0 - 0.9 s/co ratio [facility] - 01 Comment: Negative: < 0.8 Indeterminate: 0.8 - 0.9 Positive: > 0.9 The CDC recommends that a positive HCV antibody result be followed up with a HCV Nucleic Acid Amplification test (113680). Blood specimen (specimen) 03/31/2018 3:12 PM LINE SUPERVISOR 03/31/2018 Narrative [facility] - 04/01/2018 8:31 AM LINE SUPERVISOR Performed at: - [facility] [id number] Recreation Activities Coordinator: Mihir Paul PhD, Phone: [phone] Bran العراقي DO LAB MICROBIOLOGY - GENERAL O RDERABLES Final Result [facility] - 01 from Last 3 Months or Most Recently Relevant to Health Maintenance Insurance HUMANA CHOICE MEDICARE PPO HUMANA MEDICARE HMO Advance Directives For more information, please contact: [phone] * Full Code (Latest Code Status on File) Date Activated Date Inactivated Comments 04/10/2024 11:03 AM 04/11/2024 7:10 PM * Full Code Date Activated Date Inactivated Comments 07/25/2023 10:42 AM 07/26/2023 6:13 PM Care Teams Public Finance Specialist Relationship Specialty Start Date End Date Rey Heck MD PCP - General Internal Medicine 01/16/18 Randy Bravo MD Dermatology 01/20/18 Bran العراقي DO [address] [place] [address] Medical Oncologist/Hematologis t Hematology and Oncology 06/11/18 Dave Parker MD [address] [place] [address] Consulting Physician Cardiovascular Disease 07/26/23
--- OUTSIDE RECORDS SUMMARY | 2024-11-04 09:18 | XMS_ITS | Clinical Summary ---
Author Organization [facility] Paula Montelongo Address [address] [place] [address] Care Team Providers Care Elementary Assistant Teacher Name Role Phone Yasmin Madden MD Primary [...] Encounters Date Type Department Care Team Description 2024 External Device Data STL ABSTRACTION Provider, Abstract 10/20/2024 10:00 AM CDT Office Visit [facility] Oncology and Hematology - [address] [place] [address] Quintin Paniagua MD Iron overload (Primary Dx) 10/20/2024 Orders Only [facility] Oncology and Hematology - Sim [address] [place] [address] Quintin Paniagua MD 08/25/2024 External Device Data STL ABSTRACTION Provider, Abstract from Last 3 Months Family History Relation Name Status Comments Brother Alive Father Mother Alive Sister 1 Alive Sister 2 Alive Social History Tobacco Use Types Packs/Day Years Used Date Smoking Tobacco: Former Cigarettes 2 014 1963 Tobacco Cessation:Counseling Given: Not Answered Alcohol Use Standard Drinks/Week Comments Yes 24 (1 standard drink = 0.6 oz pu re alcohol) Sex and Gender Information Value Date Recorded Sex Assigned at Not on file Legal Sex Male 3:36 PM CDT Gender Identity Not on file Sexual Orientation Not on file Last Filed Vital Signs Vital Sign Reading Time Taken Comments Blood Pressure 123/71 10/20/2024 9:50 AM CDT Pulse 97 10/20/2024 9:50 AM CDT Temperature 37.1 C (98.7 F) 10/20/2024 9:50 AM CDT Respiratory Rate 15 04/01/2024 1:15 PM HOUSEKEEPER SUPERVISOR Oxygen Saturation 98% 10/20/2024 9:50 AM CDT Inhaled Oxygen Concentration - - Weight 74.8 kg (165 lb) 10/20/2024 9:50 AM CDT Height 175.3 cm (5' 9) 10/20/2024 9:50 AM CDT Body Mass Index 24.37 10/20/2024 9:50 AM CDT Plan of Treatment Upcoming Encounters Date Type Department Care Team (Late st Contact Info) Description 12/22/2024 10:00 AM CDT Office Visit [facility] Oncology and Hematology - Sim [address] [place] [phone] Quintin Paniagua MD [address] [facility] [address] [place] [address] Health Maintenance Due Date Last Done Comments DTAP/TDAP/TD VACCINES (1 - Tdap) 1968 COLORECTAL SCREENING 1994 Colorectal Cancer Screening 1994 FIT-DNA Q 3 years 1994 FIT/FOBT Q 1 year 1994 Flex Sig/CT Colonography Q 5 years 1994 ZOSTER VACCINE (1 of 2) 10/28/1999 COVID-19 Vaccine (3 - 2023- season) 2023, 08/25/2020 INFLUENZA VACCINE (#1) 2024 01/27/2024 RSV VACCINE (60+ or ) (1 - 1-dose 75+ series) 2024 PNEUMOCOCCAL VACCINE 50+ YEARS Completed 05/06/2023 Abdominal Aortic Aneurysm (AAA) Screening Completed 05/15/2023 Procedures Procedure Name Priority Date/Time Associated Diagnosis Comments BASIC METABOLIC PANEL Routine 10/20/2024 1:24 PM CDT COMPREHENSIVE METABOLIC PANEL Routine 10/20/2024 1:18 PM CDT from Last 3 Months Results * BASIC METABOLIC PANEL (10/20/2024 1:24 PM CDT) Blood Quintin Paniagua MD CHEMISTRY ORDERABLES Final Resu lt * COMPREHENSIVE METABOLIC PANEL (10/20/2024 1:18 PM CDT) Blood us Quintin Paniagua MD CHEMISTRY ORDERABLES Final Resu lt from Last [address] [place] [address] MCR [facility] Address: [address] [address] Care Teams Elementary Assistant Teacher Relationship Specialty Start Date End Date BahYasmin rivers MD PCP - General Internal Medicine 06/27/23
--- OUTSIDE RECORDS SUMMARY | 2024-11-04 09:19 | XMS_ITS | Patient Health Record ---
Author Organization [facility] Address [address] [place] [address] Care Team Providers Care Oil Process Stillman Name Role Phone Robert Shultz Unavailable [phone] Reason For Referral No Information Medications Medication SIG (Take, Route, Frequency, Duration) Notes Start Date End Date Status Calcitriol 0.25 MCG 1 capsule Orally Onc e a day; Duration: 90 day(s) 07/22/2024 04/17/2025 Active Ergocalciferol 1.25 MG (66351 UT) 1 capsule Orally Once a week; Duration: 30 days 07/22/2024 11/19/2024 Active Losartan Potassium 25 MG 1 tablet Orally Once a day; Duration: 90 day(s) 07/22/2024 Active Problems Problem Type SNOMED Code ICD Code Onset Dates Problem Status W/U Status Risk Notes Problem Diabetic renal disease (776598896) Type 2 diabetes mellitus with diabetic chronic kidney disease (E11.22) Active confirmed Problem Hyperlipidemia (23564241) Hyperlipidemia, unspecified (E78.5) Active confirmed Problem Cardiomyopathy (56375793) Cardiomyopathy, unspecified (I42.9) Active confirmed Problem Gastro-esophageal reflux disease without esophagitis (574032354) Gastro-esophageal reflux disease without esophagitis (K21.9) Active confirmed Problem Chronic kidney disease stage 4 (846117664) Chronic kidney disease, stage 4 (severe) (N18.4) Active confirmed Problem Renal osteodystrophy (45537189) Renal osteodystrophy (N25.0) Active confirmed Problem Secondary hyperparathyroidism of renal origin (82144967) Secondary hyperparathyroidism of renal origin (N25.81) Active confirmed Problem Proteinuria (74750728) Proteinuria, unspecified (R80.9) Active confirmed Problem Essential hypertension (32495827) Essential hypertension (I10) Active confirmed Problem Coronary artery disease (72641893) CAD (coronary artery disease) (I25.10) Active confirmed Encounters Encounter Location Date Provider Diagnosis [facility] [address] [address] 06/24/2024 Robert Shultz Chronic kidney disea se, stage 3 unspecified N18.30 ; Essential hypertension I10 ; Gastro-esophageal reflux disease without esophagitis K21.9 ; Hyperlipidemia, unspecified E78.5 ; CAD (coronary artery disease) I25.10 and Cardiomyopathy, unspecified I42.9 [facility] [address] [place] [address] 07/22/2024 Robert Shultz Chronic kidney disea se, stage 3a N18.31 ; Essential hypertension I10 ; Gastro-esophageal reflux disease without esophagitis K21.9 ; Hyperlipidemia, unspecified E78.5 ; CAD (coronary artery disease) I25.10 ; Cardiomyopathy, unspecified I42.9 ; Type 2 diabetes mellitus with diabetic chronic kidney disease E11.22 ; Renal osteodystrophy N25.0 ; Secondary hyperparathyroidism of renal origin N25.81 and Proteinuria, unspecified R80.9 [facility] [address] [place] [address] 09/02/2024 Robert Shultz Chronic kidney disea se, stage 4 (severe) N18.4 ; Essential hypertension I10 ; Gastro-esophageal reflux disease without esophagitis K21.9 ; Hyperlipidemia, unspecified E78.5 ; CAD (coronary artery disease) I25.10 ; Cardiomyopathy, unspecified I42.9 ; Type 2 diabetes mellitus with diabetic chronic kidney disease E11.22 ; Renal osteodystrophy N25.0 ; Secondary hyperparathyroidism of renal origin N25.81 and Proteinuria, unspecified R80.9 [facility] [address] [place] [address] 07/22/2024 Robert Shultz Assessments Encounter Date Diagnosis [...]
--- OUTSIDE RECORDS SUMMARY | 2024-11-04 09:19 | XMS_ITS | Clinical Summary ---
Author Organization [facility] Address [address] [place] [address] Phone Care Team Providers Care Molding Technician Name Role Phone Rey Heck MD Primary Care Provider [phone] Social History Tobacco Use Types Packs/Day Years [...] topic Insurance MEDICARE C HUMANA Care Teams Molding Technician Relationship Specialty Start Date End Date Rey Heck MD PCP - General Internal Medicine 03/18/18
[2024-11-04 10:16] LABS: Albumin Level 3.9 g/dL (3.5-5.1); Anion Gap 10 mmol/L (4-12); Blood Urea Nitrogen 33 mg/dL (9-20); Calcium 9.4 mg/dL (8.4-10.2); Carbon Dioxide 21 mmol/L (22-30); Chloride 110 mmol/L (98-107); Estimated Glomerular Filt Rate 23; Glucose 109 mg/dL (65-110); Potassium 3.6 mmol/L (3.4-5.0); Sodium 141 mmol/L (137-145)
== END 2024-11-04 09:11 | disposition home or self-care (01) ==
PROVIDERS: PCP Internal Medicine; Visit Provider Internal Medicine Nephrology
DX: N17.9 Acute kidney failure, unspecified (principal); Z99.2 Dependence on renal dialysis
CPT/HCPCS: 36415; 80069

== ENCOUNTER 2024-11-06 11:30 | Outpatient (CLI) | payer MEDICARE, SELFPAY ==
--- OUTSIDE RECORDS SUMMARY | 2004-07-22 05:45 | XMS_ITS | Continuity of Care Document ---
Author Organization Located [facility] Address [address] [facility] [address] [place] [address] Phone Care Team Providers Care Civil Engineer In Training Name Role Phone Rm OD, Esteban Unavailable Unavailable Advance Directives Directive Yes / No Effective Date File Name No Information Encounters Encounter Description Practice Location Reason(s) For Visit Diagnoses Date Provider Providers Copied on Encounter [facility], [address], [place], [place], [id number], [place] tel:[phone] [facility] No Information 4-200 5 Rm OD Esteban. [address] , [address], [place], [address], [place]. tel:[phone] Family History Family Member Type Diagnosis Age At Onset No Information Payers Payer name Insurance type Covered alliance party ID Authoriza tion(s) [place]oth[place] [facility] [id number] Social History Type Description Quantity Date Captured [...]
--- OUTSIDE RECORDS SUMMARY | 2024-07-22 10:30 | XMS_ITS ---
Author Organization [facility] Address [address] [address] [place] [address] Care Team Providers Care Ice Cream Freezer Helper Name Role Phone Robert Shultz Unavailable [phone] Problems Problem Type SNOMED Code ICD Code Onset Dates Problem Status W/U Status Risk Notes Problem Type 2 diabetes mellitus with diabetic chronic kidney disease (E11.22) Active confirmed Problem Renal osteodystrophy (23157403) Renal osteodystrophy (N25.0) Active confirmed Problem Secondary hyperparathyroidism of renal origin (31956908) Secondary hyperparathyroidism of renal origin (N25.81) Active confirmed Problem Proteinuria (33227365) Proteinuria, unspecified (R80.9) Active confirmed Encounters Encounter Location Date Provider Diagnosis [place] [facility] [address] [facility] [address] [place] [address] 07/22/2024 Robert Shultz Chronic kidney disea se, [...] * MALU MENDIOLADOB: 0 (74 yo M)Acc No.[id number]:07/22/2024 Progress Notes Patient: MALU JIMENES Provider: Regis SIDDIQUI MD, F.A.C.P, F.A.S.N. :1950 A ge:73 Y S ex:Male Date:07/22/2024 Address:[address] [place] [address] Subjective: * Chief Complaints: * * Medical [...] Treatment: * Billing Information: * Visit Code: 67999 Office Visit, Est Pt., Level 4. * Procedure Codes: * Electronic signature of Gaudencio Shultz MD on 11/06/2024 at 11:33 AM CDT Sign off status: Pending * Provider: Regis SIDDIQUI MD, F.A.C.P, F.A.S.N. Date: 07/22/2024 Generated for Printing/Faxing/eTransmitting on: 0 11/06/2024 11:33 AM CDT
--- OUTSIDE RECORDS SUMMARY | 2024-09-02 12:30 | XMS_ITS ---
Author Organization [facility] Address [address] [address] [place] [address] Care Team Providers Care Range Ecologist Name Role Phone Carrington Robert Unavailable [phone] Problems Problem Type SNOMED Code ICD Code Onset Dates Problem Status W/U Status Risk Notes Problem Chronic kidney disease, stage 4 (severe) (N18.4) Active confirmed Encounters Encounter Location Date Provider Diagnosis [place] [facility] [address] [facility] 15 [place] [address] 09/02/2024 Robert Shultz Chronic kidney disea se, [...] * MALU MENDIOLADOB: 0 (74 yo M)Acc No.[id number]:09/02/2024 Patient: MALU JIMENES Provider: Regis SIDDIQUI MD, F.Carlos.C.P, F.A.S.N. :1950 A ge:73 Y S ex:Male Date:09/02/2024 Address:[address] [place] [address] Subjective: * Chief Complaints: Objective: Assessment: * [...] Plan: * Billing Information: * Visit Code: 49283 Office Visit, Est Pt., Level 5. * Procedure Codes: * Electronic signature of Gaudencio Shultz MD on 11/06/2024 at 11:32 AM CDT Sign off status: Pending * Provider: Regis SIDDIQUI MD, F.Carlos.C.P, F.A.S.N. Date: 0 09/02/2024 Generated for Printing/Faxing/eTransmitting on: 0 11/06/2024 11:32 AM CDT
--- OUTSIDE RECORDS SUMMARY | 2024-11-06 11:33 | XMS_ITS | Clinical Summary ---
Author Organization [facility] Address [facility] [place] [address] Care Team Providers Care Project Management Advisor Name Role Phone Rey Heck MD Primary Care Provider + [phone] Randy Bravo MD Unavailable [phone] Bran العراقي DO Unavailable [phone] Dave Parker MD Unavailable Allergies Active Allergy [...] Care Team Description 09/24/[address] [facility] Cardiology [address] [place] [address] Ana Hackett NP 09/22/[address] 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 Not on file Obstetrics History Last Filed Vital Signs Vital Sign Reading Time Taken Comments Blood Pressure 101/57 04/11/2024 8:59 AM GLOBAL PROGRAM DIRECTOR Pulse 65 04/11/2024 8:59 AM GLOBAL PROGRAM DIRECTOR Temperature 37.1 C (98.8 F) 04/11/2024 8:59 AM GLOBAL PROGRAM DIRECTOR Respiratory Rate 17 04/11/2024 8:59 AM GLOBAL PROGRAM DIRECTOR Oxygen Saturation 96% 04/11/2024 8:59 AM GLOBAL PROGRAM DIRECTOR Inhaled Oxygen Concentration - - Weight 80.3 kg (177 lb) 04/10/2024 3:30 PM GLOBAL PROGRAM DIRECTOR Height 177.8 cm (5' 10) 04/10/2024 3:30 PM GLOBAL PROGRAM DIRECTOR Body Mass Index 25.4 04/10/2024 3:30 PM GLOBAL PROGRAM DIRECTOR Plan of Treatment Health Maintenance Due [...] Completed 03/31/2018 Medical Devices Implanted Type Area Crime Scene Analyst Device Identifier Shelf Expiration Date Model / Serial / Lot [facility] Vas Surgery 4.0 X 30mm [place] Rx Coronary Stent [id number] - [id number] Implanted:Qty: 1 on 07/25/2023 by Dave Parker MD at [facility] Surgery 03/30/2026 [id number] / / [id number] [employer] Stent Drug Eluting S Megatron Us Mr 5.00x8mm [id number] - [id number] Implanted:Qty: 1 on 07/25/2023 by Dave Parker MD at [facility] [employer] 10/30/2024 [id number] / / [id number] [employer] Angio-Seal Vip 6fr Closere Device [id number] - [id number] Implanted:Qty: 1 on 07/25/2023 by Dave Parker MD at [facility] [employer] [id number] / / [employer] Xact 8-10mm 40mm Self Expand Closed Cell Flare End Freestyle [id number] - [id number] Implanted:Qty: 1 on 04/10/2024 by Varun Zarate MD at [facility] [employer] 09/07/2025 [id number] / / [id number] [employer] Sulma Angio-Seal Vip 6fr Closere Device [id number] - [id number] Implanted:Qty: 1 on 04/10/2024 by Varun Zarate MD at [facility] [employer] 09/17/2024 [id number] / / Procedures Procedure Name Priority Date/Time [...] HEPATITIS C ANTIBODY Routine 03/31/2018 3:12 PM GLOBAL PROGRAM DIRECTOR Porphyria cutanea tarda (HCC) from Last [...] AM CDT) Anatomical Region Laterality Modality Other nAa Hackett NP CV CARDIAC SERVICES PROCEDUR ES [...] * Hepatitis C antibody (03/31/2018 3:12 PM GLOBAL PROGRAM DIRECTOR) Hep C Ab <0.1 0.0 - 0.9 s/co ratio [facility] - 01 Comment: Negative: < 0.8 Indeterminate: 0.8 - 0.9 Positive: > 0.9 The CDC recommends that a positive HCV antibody result be followed up with a HCV Nucleic Acid Amplification test (467829). Blood specimen (specimen) 03/31/2018 3:12 PM GLOBAL PROGRAM DIRECTOR 03/31/2018 Narrative [facility] - 04/01/2018 8:31 AM GLOBAL PROGRAM DIRECTOR Performed at: - [facility] [id number] [place]: Mihir Paul PhD, Phone: [phone] Bran العراقي DO LAB MICROBIOLOGY - GENERAL O RDERABLES Final Result [facility] - 01 from Last 3 Months or Most Recently Relevant to Health Maintenance Insurance HUMANA CHOICE MEDICARE PPO HUMANA MEDICARE HMO Advance Directives For more information, please contact: [phone] * Full Code (Latest Code Status on File) Date Activated Date Inactivated Comments 04/10/2024 11:03 AM 04/11/2024 7:10 PM * Full Code Date Activated Date Inactivated Comments 07/25/2023 10:42 AM 07/26/2023 6:13 PM Care Teams Project Management Advisor Relationship Specialty Start Date End Date Rey Heck MD PCP - General Internal Medicine 01/16/18 Randy Bravo MD Dermatology 01/20/18 Bran العراقي DO [address] [place] [address] Medical Oncologist/Hematologis t Hematology and Oncology 06/11/18 Dave Parekr MD [address] [place] [address] Consulting Physician Cardiovascular Disease 07/26/23
--- OUTSIDE RECORDS SUMMARY | 2024-11-06 11:33 | XMS_ITS | Encounter Summary ---
Author Organization [facility] Address [address] [place] [address] Care Team Providers Care Packer Denture Name Role Phone Unavailable Primary Care Provider Unavailabl e Encounter Details Date Type Department Care Team (Late st Contact Info) Description 11/04/2024 Lab Requisition [facility] - DermPath Lab [address] [place] [address] Randy Bravo MD [facility] DERMATOLOGY [address] [place] [phone] Neoplasm of uncertain behavior of skin Social History Tobacco Use Types Packs/Day Years Used Date Smoking Tobacco: Never Assessed Sex and Gender Information Value Date Recorded Sex Assigned at Not on file 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
--- OUTSIDE RECORDS SUMMARY | 2024-11-06 11:33 | XMS_ITS | Clinical Summary ---
Author Organization [facility] Paula Montelongo Address [address] [place] [address] Care Team Providers Care Engineering Faculty Member Name Role Phone Yasmin Madden MD Primary [...] Abstract 10/20/2024 10:00 AM CDT Office Visit [facility] Oncology and Hematology - [address] [place] [address] Quintin Paniagua MD Iron overload (Primary Dx) 10/20/2024 Orders Only [facility] Oncology and Hematology - Sim [address] [place] [address] Quintin Paniagua MD 08/25/2024 External [...] CDT Respiratory Rate 15 04/01/2024 1:15 PM CAPTAIN OF GUARDS Oxygen Saturation 98% 10/20/2024 9:50 AM CDT Inhaled Oxygen Concentration - - Weight 74.8 kg (165 lb) 10/20/2024 9:50 AM CDT Height 175.3 cm (5' 9) 10/20/2024 9:50 AM CDT Body Mass Index 24.37 10/20/2024 9:50 AM CDT Plan of Treatment Upcoming Encounters Date Type Department Care Team (Late st Contact Info) Description 12/22/2024 10:00 AM CDT Office Visit [facility] Oncology and Hematology - [address] [place] [phone] Quintin Paniagua MD [address] [facility] [address] [place] [address] Health Maintenance Due Date Last [...] Resu lt from Last [address] [place] [address] [place] [address] MCR [facility] Address: [address] [address] Care Teams Engineering Faculty Member Relationship Specialty Start Date End Date BahYasmin rivers MD PCP - General Internal Medicine 06/27/23
--- OUTSIDE RECORDS SUMMARY | 2024-11-06 11:33 | XMS_ITS | Clinical Summary ---
Author Organization [facility] Address [address] [facility] [place] [address] Care Team Providers Care Hvac Engineer Name Role Phone Unavailable Primary Care Provider Unavailabl e Source Comments [facility],non-owned Affiliates and Associated Physician Practices is amultiple site organization consisting of ambulatory clinics and hospital sitesin [place], [place], [place] and [place]. This disclosure is being madepursuant to the Care Everywhere program and may not contain all information available regarding this patient. 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 Gender Identity Not on file Sexual Orientation [...] 75+ series) 2024 INFLUENZA VACCINE (#1) 2024 , 12/09/2016 HEPATITIS B VACCINE Aged Out No [...] patient's age to complete this topic Insurance [facility] MEDICARE ADV HMO & PPO HUMANA [facility] Address: [address] [address] SELF PAY NO INSURANCE Member Subscriber Plan / Payer (Ef fective for All Dates) Name:Malu Mendiola Member ID:Not on file Relation to Subscriber:Not on file Name:MALU MENDIOLA Subscriber ID:Not on file (Home) Address: [address] [place] [address] Payer ID:Not on file Group ID:Not on file Type:Self Pay Address: [place], [place]
--- OUTSIDE RECORDS SUMMARY | 2024-11-06 11:33 | XMS_ITS | Patient Health Record ---
Author Organization [facility] Address [address] [place] [address] Care Team Providers Care Architectural Administrative Assistant Name Role Phone Robert Shultz Unavailable [phone] Reason For Referral No Information Medications Medication SIG (Take, Route, Frequency, Duration) Notes Start Date End Date Status Calcitriol 0.25 MCG 1 capsule Orally Onc e a day; Duration: 90 day(s) 07/22/2024 04/17/2025 Active Ergocalciferol 1.25 MG (22478 UT) 1 capsule Orally Once a week; Duration: 30 days 07/22/2024 11/19/2024 Active Losartan Potassium 25 MG 1 tablet Orally Once a day; Duration: 90 day(s) 07/22/2024 Active Problems Problem Type SNOMED Code ICD Code Onset Dates Problem Status W/U Status Risk Notes Problem Diabetic renal disease (202666281) Type 2 diabetes mellitus with diabetic chronic kidney disease (E11.22) Active confirmed Problem Hyperlipidemia (31017988) Hyperlipidemia, unspecified (E78.5) Active confirmed Problem Cardiomyopathy (58756387) Cardiomyopathy, unspecified (I42.9) Active confirmed Problem Gastro-esophageal reflux disease without esophagitis (283646149) Gastro-esophageal reflux disease without esophagitis (K21.9) Active confirmed Problem Chronic kidney disease stage 4 (520916736) Chronic kidney disease, stage 4 (severe) (N18.4) Active confirmed Problem Renal osteodystrophy (05265346) Renal osteodystrophy (N25.0) Active confirmed Problem Secondary hyperparathyroidism of renal origin (77009643) Secondary hyperparathyroidism of renal origin (N25.81) Active confirmed Problem Proteinuria (09516187) Proteinuria, unspecified (R80.9) Active confirmed Problem Essential hypertension (55819920) Essential hypertension (I10) Active confirmed Problem Coronary artery disease (60500154) CAD (coronary artery disease) (I25.10) Active confirmed Encounters Encounter Location Date Provider Diagnosis [facility] [address] [address] 06/24/2024 Robert Shultz Chronic kidney disea se, stage 3 unspecified N18.30 ; Essential hypertension I10 ; Gastro-esophageal reflux disease without esophagitis K21.9 ; Hyperlipidemia, unspecified E78.5 ; CAD (coronary artery disease) I25.10 and Cardiomyopathy, unspecified I42.9 [facility] [address] [place] [address] 07/22/2024 Robert Shultz Chronic kidney disea se, stage 3a N18.31 ; Essential hypertension I10 ; Gastro-esophageal reflux disease without esophagitis K21.9 ; Hyperlipidemia, unspecified E78.5 ; CAD (coronary artery disease) I25.10 ; Cardiomyopathy, unspecified I42.9 ; Type 2 diabetes mellitus with diabetic chronic kidney disease E11.22 ; Renal osteodystrophy N25.0 ; Secondary hyperparathyroidism of renal origin N25.81 and Proteinuria, unspecified R80.9 [facility] [address] [place] [address] 09/02/2024 Robert Shultz Chronic kidney disea se, stage 4 (severe) N18.4 ; Essential hypertension I10 ; Gastro-esophageal reflux disease without esophagitis K21.9 ; Hyperlipidemia, unspecified E78.5 ; CAD (coronary artery disease) I25.10 ; Cardiomyopathy, unspecified I42.9 ; Type 2 diabetes mellitus with diabetic chronic kidney disease E11.22 ; Renal osteodystrophy N25.0 ; Secondary hyperparathyroidism of renal origin N25.81 and Proteinuria, unspecified R80.9 [facility] [address] [place] [address] 07/22/2024 Robert Shultz Assessments Encounter Date Diagnosis [...]
--- OUTSIDE RECORDS SUMMARY | 2024-11-06 11:33 | XMS_ITS | Encounter Summary ---
Author Organization [facility] Address [address] [facility] [place] [address] Care Team Providers Care Aerospace Engineer Officer Armament Name Role Phone Unavailable Primary Care Provider Unavailabl e Encounter Details Date Type Department Care Team (Late st Contact Info) Description 04/30/2023 Lab Requisition [facility]ermPath Lab [address] [place] [phone] Randy Bravo MD [facility] DERMATOLOGY [address] [place] [phone] Neoplasm of uncertain behavior of skin Social History Tobacco Use Types Packs/Day Years Used Date Smoking Tobacco: Never Assessed Sex and Gender Information Value Date Recorded Sex Assigned at Not on file 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 Gender Identity Not on file Sexual Orientation Not on file documented as of this encounter Plan of Treatment Not on file documented as of this encounter Procedures Procedure Name Priority Date/Time Associated Diagnosis Comments DERMATOPATHOLOGY Routine 04/30/2023 3:33 AM SPLITTER TENDER Neoplasm of uncertain behavior of skin documented in this encounter Results * DERMATOPATHOLOGY (04/30/2023 3:33 AM SPLITTER TENDER) Case Report Dermatopathology Report Case: [id number] Authorizing Provider: Randy Bravo MD Collected: 04/30/2023 03:33 AM Ordering Location: [facility] DermPath Lab Received: 05/01/2023 01:16 PM Pathologist: Latrice Thibodeaux MD Specimens: A) - Skin, left hand B) - Skin, left ear 2:31 PM SPLITTER TENDER DERMATOPATHOLOGY LABORATORY Final Diagnosis Specimen A. SKIN, left hand: SUPERFICIAL (FOCALLY INVASIVE) SQUAMOUS CELL CARCINOMA ARISING IN AN ACTINIC KERATOSIS (C44.629) Specimen B. SKIN, left ear: BASAL CELL CARCINOMA, FRAGMENTS OF (C44.219) (see microscopic description) 2:[address] [facility] DERMATOPATHOLOGY LABORATORY at 1431 SPLITTER TENDER Clinical History A: Squamous Cell Carcinoma B: Basal Cell Carcinoma 2:[address] [facility] DERMATOPATHOLOGY LABORATORY Gross Description Specimen [...] measuring 2x1x1 mm. Jar 0. 2:[address] [facility] DERMATOPATHOLOGY LABORATORY Microscopic Description Specimen [...] sections were obtained and reviewed. 2:[address] [facility] DERMATOPATHOLOGY LABORATORY Disclaimer An external and internal positive and negative controls are appropriate for the histochemical, immunohistochemical and immunofluorescence stain(s) in this case (if any), except where stated explicitly. The performance characteristics of the stain(s) cited in this report were developed and its performance characteristic determined by the Dermatopathology Laboratory at [facility], directed by Dr. Hoa Zayas. These tests need not be, and therefore are not, approved by the [place] Food and Drug Administration. The tests are used for clinical purposes. Billing Codes Specimen Charges Stain Charges 64333 95045 1 1 34606 1 2:[address] [facility] DERMATOPATHOLOGY LABORATORY Embedded Images 2:[address] [facility] DERMATOPATHOLOGY LABORATORY Pathology/Cytology TISSUE SPECIMEN FROM SKIN / Unknown 04/30/2023 3:33 AM SPLITTER TENDER 05/01/2023 1:16 PM SPLITTER TENDER Miscellaneous samples (specimen) TISSUE SPECIMEN FROM SKIN / Unknown 04/30/2023 3:33 AM SPLITTER TENDER 05/01/2023 1:29 PM SPLITTER TENDER us Randy Bravo MD LAB - PATHOLOGY/CYTOLOGY GIBRAN MARMOLEJO Final Result DERMATOPATHOLOGY LABORATORY [facility] - Department of Dermatology [facility] Medicine [address] [place] [address], [address] [phone] documented in this encounter Visit Diagnoses Diagnosis Neoplasm of uncertain behavior of skin documented in this encounter
--- OUTSIDE RECORDS SUMMARY | 2024-11-06 11:33 | XMS_ITS | Encounter Summary ---
Author Organization [facility] Address [address] [facility] [place] [address] Care Team Providers Care Ios Software Engineer Name Role Phone Unavailable Primary Care Provider Unavailabl e Encounter Details Date Type Department Care Team (Late st Contact Info) Description 06/17/2024 Lab Requisition [facility] - [facility]ermPath Lab [address] [place] [phone] Randy Bravo MD [facility] DERMATOLOGY [address] [place] [phone] Neoplasm of uncertain behavior of skin Social History Tobacco Use Types Packs/Day Years Used Date Smoking Tobacco: Never Assessed Sex and Gender Information Value Date Recorded Sex Assigned at Not on file 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 Gender Identity Not on file Sexual Orientation Not on file documented as of this encounter Plan of Treatment Not on file documented as of this encounter Procedures Procedure Name Priority Date/Time Associated Diagnosis Comments DERMATOPATHOLOGY Routine 06/17/2024 3:33 AM CDT Neoplasm of uncertain behavior of skin documented in this encounter Results * DERMATOPATHOLOGY (06/17/2024 3:33 AM CDT) Case Report Dermatopathology Report Case: [id number] Authorizing Provider: Randy Bravo MD Collected: 06/17/2024 03:33 AM Ordering Location: [facility] - Received: 06/18/2024 [...] characteristic determined by the Dermatopathology Laboratory at [facility], directed by Dr. Hoa Zayas. These tests need not be, and therefore are not, approved by the [place] Food and Drug Administration. The tests are used for clinical purposes. Billing Codes Specimen Charges Stain Charges 46816 1 1:05 PM CDT DERMATOPATHOLOGY LABORATORY Embedded Images 1:05 PM CDT DERMATOPATHOLOGY LABORATORY Pathology/Cytolo gy TISSUE SPECIMEN FROM SKIN / Unknown 06/17/2024 3:33 AM CDT 06/18/2024 12:37 PM CDT Randy Bravo MD LAB - PATHOLOGY/CYTOLOGY ORDE FRANCIE Final Result DERMATOPATHOLOGY LABORATORY [facility] - Department of Dermatology [address], [address] [phone] documented in this encounter Visit Diagnoses Diagnosis Neoplasm of uncertain behavior of skin documented in this encounter
--- OUTSIDE RECORDS SUMMARY | 2024-11-06 11:33 | XMS_ITS | Clinical Summary ---
Author Organization [facility] Address [address] [place] [address] Phone Care Team Providers Care Street Cleaning Equipment Operator Name Role Phone Rey Heck MD Primary Care Provider [phone] Social History Tobacco Use Types Packs/Day Years [...] topic Insurance MEDICARE C [employer] Care Teams Street Cleaning Equipment Operator Relationship Specialty Start Date End Date Rey Heck MD PCP - General Internal Medicine 03/18/18
[2024-11-06 12:32] LABS: Albumin Level 3.9 g/dL (3.5-5.1); Anion Gap 11 mmol/L (4-12); Blood Urea Nitrogen 32 mg/dL (9-20); Calcium 9.4 mg/dL (8.4-10.2); Carbon Dioxide 20 mmol/L (22-30); Chloride 110 mmol/L (98-107); Estimated Glomerular Filt Rate 26; Glucose 102 mg/dL (65-110); Potassium 3.4 mmol/L (3.4-5.0); Sodium 141 mmol/L (137-145)
== END 2024-11-06 11:31 | disposition home or self-care (01) ==
LOC: ANHLAB 11:30
PROVIDERS: PCP Internal Medicine; Visit Provider Internal Medicine Nephrology
DX: N17.9 Acute kidney failure, unspecified (principal); Z99.2 Dependence on renal dialysis
CPT/HCPCS: 36415; 80069

== ENCOUNTER 2024-11-21 09:54 | Outpatient (CLI) | payer MEDICARE, SELFPAY ==
--- OUTSIDE RECORDS SUMMARY | 2004-07-22 05:45 | XMS_ITS | Continuity of Care Document ---
Author Organization [facility] Address [address] [facility] [address] [place] [address] Phone Care Team Providers Care Building Certifier Name Role Phone Rm OD, Esteban Unavailable Unavailable Advance Directives Directive Yes / No Effective Date File Name No Information Encounters Encounter Description Practice Location Reason(s) For Visit Diagnoses Date Provider Providers Copied on Encounter [facility], [address], [place], [place], [id number], [place] tel:[phone] [facility] No Information 4-200 5 Rm OD Esteban. [address] , [address], [place], [address], [place]. tel:[phone] Family History Family Member Type Diagnosis Age At Onset No Information Payers Payer name Insurance type Covered alliance party ID Authoriza tion(s) Slovenian [facility] [id number] Social History Type Description Quantity Date Captured Comments Sex Male Smoking Status No Information Chief Complaint And Reason For Visit No Information Reason For Referral Reason For Referral No Information History Of Present Illness Encounter Date Complaint History Of Prese nt Illness No Information Functional Status Date Functional Assessmen t No Information Instructions Date Instruction Additional Infor mation No Information Assessments Type Assessment Date No Information Patient Care Teams Name Effective Dates (start - stop) Status Members No Information
--- OUTSIDE RECORDS SUMMARY | 2024-07-22 10:30 | XMS_ITS ---
Author Organization [facility] Office Address [address] [place] [address] Care Team Providers Care Passenger Flagman Name Role Phone Robert Shultz Unavailable [phone] Problems Problem Type SNOMED Code ICD Code Onset Dates Problem Status W/U Status Risk Notes Problem Diabetic renal disease (388467234) Type 2 diabetes mellitus with diabetic chronic kidney disease (E11.22) Active confirmed Problem Renal osteodystrophy (13203590) Renal osteodystrophy (N25.0) Active confirmed Problem Secondary hyperparathyroidism of renal origin (38454014) Secondary hyperparathyroidism of renal origin (N25.81) Active confirmed Problem Proteinuria (38270010) Proteinuria, unspecified (R80.9) Active confirmed Encounters Encounter Location Date Provider Diagnosis [place] [facility] [address] [facility] [address] [place] [address] 07/22/2024 Robert Shultz Chronic kidney disea se, [...] * MALU MENDIOLADOB: 0 (74 yo M)Acc No.[id number]:07/22/2024 Progress Notes Patient: MALU JIMENES Provider: Regis SIDDIQUI MD, F.A.C.P, F.A.S.N. :1950 A ge:73 Y S ex:Male Date:07/22/2024 Address:[address] [place] [address] Subjective: * Chief Complaints: * * Medical [...] Treatment: * Billing Information: * Visit Code: 20769 Office Visit, Est Pt., Level 4. * Procedure Codes: * Electronic signature of Gaudencio Shultz MD on 11/21/2024 at 09:58 AM CDT Sign off status: Pending * Provider: Regis SIDDIQUI MD, F.A.C.P, F.A.S.N. Date: 0 07/22/2024 Generated for Printing/Faxing/eTransmitting on: 0 11/21/2024 09:58 AM CDT
--- OUTSIDE RECORDS SUMMARY | 2024-09-02 12:30 | XMS_ITS ---
Author Organization [facility] Address [address] [address] [place] [address] Care Team Providers Care Compress Machine Operator Name Role Phone Shultz Robert Unavailable [phone] Problems Problem Type SNOMED Code ICD Code Onset Dates Problem Status W/U Status Risk Notes Problem Chronic kidney disease stage 4 (267198580) Chronic kidney disease, stage 4 (severe) (N18.4) Active confirmed Encounters Encounter Location Date Provider Diagnosis [place] [facility] [address] [facility] [address] [place] [address] 09/02/2024 Robert Shultz Chronic kidney disea se, stage 4 (severe) N18.4 ; Essential hypertension I10 ; Gastro-esophageal reflux [...] Treatment Notes Treatment Clinical Notes Section Notes 09/02/2024 Chronic kidney disea se, stage 4 (severe) (ICD-10 - N18.4) 09/02/2024 Essential hypertensi on (ICD-10 - I10) 09/02/2024 Gastro-esophageal reflux disease without esophagitis (ICD-10 - K21.9) 09/02/2024 Hyperlipidemia, unspecified (ICD-10 - E78.5) 09/02/2024 CAD (coronary artery disease) (ICD-10 - I25.10) 09/02/2024 Cardiomyopathy, unspecified (ICD-10 - I42.9) 09/02/2024 Type 2 diabetes mellitus with diabetic chronic kidney disease (ICD-10 - E11.22) 09/02/2024 Renal osteodystrophy (ICD-10 - N25.0) 09/02/2024 Secondary hyperparathyroidism of renal origin (ICD-10 - N25.81) 09/02/2024 Proteinuria, unspecified (ICD-10 - R80.9) Plan Of Treatment No Information Progress Notes * MALU MENDIOLADOB: 0 (74 yo M)Acc No.[id number]:09/02/2024 Patient: MALU JIMENES Provider: Regis SIDDIQUI MD, F.Carlos.C.P, F.A.S.N. :1950 A ge:73 Y S ex:Male Date:09/02/2024 Address:[address] [place] [address] Subjective: * Chief Complaints: Objective: Assessment: * Assessment: 1. C hronic kidney disease, stage 4 (severe) - N18.4 (Primary) 2 . E ssential hypertension - I10 3 . G kai-esophageal reflux disease without esophagitis - K21.9 4 . H yperlipidemia, unspecified - E78.5 5 . C AD (coronary artery disease) - I25.10 6 . C ardiomyopathy, unspecified - I42.9 ? 7 . T ype 2 diabetes mellitus with diabetic chronic kidney disease - E11.22 8 . R enal osteodystrophy - N25.0 9 . S econdary hyperparathyroidism of renal origin - N25.81 1 0. P roteinuria, unspecified - R80.9 Plan: * Billing Information: * Visit Code: 01247 Office Visit, Est Pt., Level 5. * Procedure Codes: * Electronic signature of Gaudencio Shultz MD on 11/21/2024 at 09:58 AM CDT Sign off status: Pending * Provider: Regis SIDDIQUI MD, F.A.C.P, F.A.S.N. Date: 0 09/02/2024 Generated for Printing/Faxing/eTransmitting on: 0 11/21/2024 09:58 AM CDT
--- OUTSIDE RECORDS SUMMARY | 2024-11-21 09:58 | XMS_ITS | Encounter Summary ---
Author Organization [facility] Address [address] [facility] [place] [address] Care Team Providers Care Director Of Scientific Research Name Role Phone Unavailable Primary Care Provider Unavailabl e Encounter Details Date Type Department Care Team (Late st Contact Info) Description 06/17/2024 Lab Requisition [facility] - Derm[facility] Lab [address] [place] [phone] Randy Bravo MD [facility] DERMATOLOGY [address] [place] [phone] Neoplasm of uncertain behavior of skin Social History Tobacco Use Types Packs/Day Years Used Date Smoking Tobacco: Never Assessed Sex and Gender Information Value Date Recorded Sex Assigned at Not on file 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 Gender Identity Not on file Sexual Orientation Not on file documented as of this encounter Plan of Treatment Not on file documented as of this encounter Procedures Procedure Name Priority Date/Time Associated Diagnosis Comments DERMATOPATHOLOGY Routine 06/17/2024 3:33 AM CDT Neoplasm of uncertain behavior of skin documented in this encounter Results * DERMATOPATHOLOGY (06/17/2024 3:33 AM CDT) Case Report Dermatopathology Report Case: [id number] Authorizing Provider: Randy Bravo MD Collected: 06/17/2024 03:33 AM Ordering Location: [facility] - Received: 06/18/2024 [...] characteristic determined by the Dermatopathology Laboratory at [facility], directed by Dr. Hoa Zayas. These tests need not be, and therefore are not, approved by the [place] Food and Drug Administration. The tests are used for clinical purposes. Billing Codes Specimen Charges Stain Charges 13722 1 1:05 PM CDT DERMATOPATHOLOGY LABORATORY Embedded Images 1:05 PM CDT DERMATOPATHOLOGY LABORATORY Pathology/Cytolo gy TISSUE SPECIMEN FROM SKIN / Unknown 06/17/2024 3:33 AM CDT 06/18/2024 12:37 PM CDT Randy Bravo MD LAB - PATHOLOGY/CYTOLOGY ORDE FRANCIE Final Result DERMATOPATHOLOGY LABORATORY [facility] - Department of Dermatology [address], [address] [phone] documented in this encounter Visit Diagnoses Diagnosis Neoplasm of uncertain behavior of skin documented in this encounter
--- OUTSIDE RECORDS SUMMARY | 2024-11-21 09:58 | XMS_ITS | Encounter Summary ---
Author Organization [facility] Address [address] [facility] [place] [place] [address] Care Team Providers Care Central Sterilization Technician Name Role Phone Unavailable Primary Care Provider Unavailabl e Encounter Details Date Type Department Care Team (Late st Contact Info) Description 04/30/2023 Lab Requisition [facility]erm[facility] Lab [address] [place] [phone] Randy Bravo MD [facility] DERMATOLOGY [address] [place] [phone] Neoplasm of uncertain behavior of skin Social History Tobacco Use Types Packs/Day Years Used Date Smoking Tobacco: Never Assessed Sex and Gender Information Value Date Recorded Sex Assigned at Not on file 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 Gender Identity Not on file Sexual Orientation Not on file documented as of this encounter Plan of Treatment Not on file documented as of this encounter Procedures Procedure Name Priority Date/Time Associated Diagnosis Comments DERMATOPATHOLOGY Routine 04/30/2023 3:33 AM ENTRY PROCESSOR Neoplasm of uncertain behavior of skin documented in this encounter Results * DERMATOPATHOLOGY (04/30/2023 3:33 AM ENTRY PROCESSOR) Case Report Dermatopathology Report Case: [id number] Authorizing Provider: Randy Bravo MD Collected: 04/30/2023 03:33 AM Ordering Location: [facility] DermPath Lab Received: 05/01/2023 01:16 PM Pathologist: Latrice Thibodeaux MD Specimens: A) - Skin, left hand B) - Skin, left ear 2:31 PM ENTRY PROCESSOR DERMATOPATHOLOGY LABORATORY Final Diagnosis Specimen A. SKIN, left hand: SUPERFICIAL (FOCALLY INVASIVE) SQUAMOUS CELL CARCINOMA ARISING IN AN ACTINIC KERATOSIS (C44.629) Specimen B. SKIN, left ear: BASAL CELL CARCINOMA, FRAGMENTS OF (C44.219) (see microscopic description) 2:31 PM [facility] DERMATOPATHOLOGY LABORATORY at 1431 ENTRY PROCESSOR Clinical History A: Squamous Cell Carcinoma B: Basal Cell Carcinoma 2:31 PM [facility] DERMATOPATHOLOGY LABORATORY Gross Description Specimen A: [...] measuring 2x1x1 mm. Jar 0. 2:31 PM [facility] DERMATOPATHOLOGY LABORATORY Microscopic Description Specimen A. [...] sections were obtained and reviewed. 2:31 PM [facility] DERMATOPATHOLOGY LABORATORY Disclaimer An external and internal positive and negative controls are appropriate for the histochemical, immunohistochemical and immunofluorescence stain(s) in this case (if any), except where stated explicitly. The performance characteristics of the stain(s) cited in this report were developed and its performance characteristic determined by the Dermatopathology Laboratory at [facility], directed by Dr. Hoa Zayas. These tests need not be, and therefore are not, approved by the [place] Food and Drug Administration. The tests are used for clinical purposes. Billing Codes Specimen Charges Stain Charges 76595 61535 1 1 47164 1 2:31 PM [facility] DERMATOPATHOLOGY LABORATORY Embedded Images 2:31 PM [facility] DERMATOPATHOLOGY LABORATORY Pathology/Cytology TISSUE SPECIMEN FROM SKIN / Unknown 04/30/2023 3:33 AM ENTRY PROCESSOR 05/01/2023 1:16 PM ENTRY PROCESSOR Miscellaneous samples (specimen) TISSUE SPECIMEN FROM SKIN / Unknown 04/30/2023 3:33 AM ENTRY PROCESSOR 05/01/2023 1:29 PM ENTRY PROCESSOR us Randy Bravo MD LAB - PATHOLOGY/CYTOLOGY GIBRAN MARMOLEJO Final Result DERMATOPATHOLOGY LABORATORY [facility] - Department of Dermatology [facility] Medicine [address] [place] [address], [address] [phone] documented in this encounter Visit Diagnoses Diagnosis Neoplasm of uncertain behavior of skin documented in this encounter
--- OUTSIDE RECORDS SUMMARY | 2024-11-21 09:58 | XMS_ITS | Encounter Summary ---
Author Organization [facility] Address [address] [facility] [place] [address] Care Team Providers Care Staging Technician Name Role Phone Unavailable Primary Care Provider Unavailabl e Encounter Details Date Type Department Care Team (Late st Contact Info) Description 11/04/2024 Lab Requisition [facility] Lab [address] [place] [phone] Randy Bravo MD 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 Gender Identity Not on file Sexual Orientation Not on file documented as of this encounter Plan of Treatment Not on file documented as of this encounter Procedures Procedure Name Priority Date/Time Associated Diagnosis Comments DERMATOPATHOLOGY Routine 11/04/2024 12:0 0 PM CDT Neoplasm of uncertain behavior of skin documented in this encounter Results * DERMATOPATHOLOGY (11/04/2024 12:00 PM CDT) Case Report Dermatopathology Report Case: [id number] Authorizing Provider: Randy Bravo MD Collected: 11/04/2024 12:00 PM Ordering Location: [facility] - Received: 11/05/2024 01:28 PM DermPath Lab Pathologist: Amie Thibodeaux MD Specimen: Skin, left alar groove 2:01 PM CDT DERMATOPATHOLOGY LABORATORY Final Diagnosis Specimen A. SKIN, left alar groove: SQUAMOUS CELL CARCINOMA IN SITU (PORTER'S DISEASE) (D04.39) (see microscopic description) 2:01 PM CDT DERMATOPATHOLOGY LABORATORY at 1401 CDT Clinical History Neoplasm of Uncertain Behavior vs SCC 2:01 PM CDT DERMATOPATHOLOGY LABORATORY Gross Description Specimen A: Received is one formalin filled container labeled with the patient's name and designated left alar groove. The specimen consists of a shave biopsy measuring 7x9x3 mm. Jar 0. 2:01 PM CDT DERMATOPATHOLOGY LABORATORY Microscopic Description Specimen A. SKIN, left alar groove: The epidermis shows parakeratosis, full thickness disorderly maturation of keratinocytes, mitoses at different levels, and dyskeratotic cells. The lesion focally extends to the base of the specimen as adnexal extension. 2:01 PM CDT DERMATOPATHOLOGY LABORATORY Disclaimer An external and internal positive and negative controls are appropriate for the histochemical, immunohistochemical and immunofluorescence stain(s) in this case (if any), except where stated explicitly. The performance characteristics of the stain(s) cited in this report were developed and its performance characteristic determined by the Dermatopathology Laboratory at [facility], directed by Dr. Hoa Zayas. These tests need not be, and therefore are not, approved by the [place] Food and Drug Administration. The tests are used for clinical purposes. Billing Codes Specimen Charges Stain Charges 80551 1 2:01 PM CDT DERMATOPATHOLOGY LABORATORY Embedded Images 2:01 PM CDT DERMATOPATHOLOGY LABORATORY Pathology/Cytolo gy TISSUE SPECIMEN FROM SKIN / Unknown 11/04/2024 12:00 PM CDT 11/05/2024 1:28 PM CDT Randy Bravo MD LAB - PATHOLOGY/CYTOLOGY GIBRAN MARMOLEJO Final Result DERMATOPATHOLOGY LABORATORY [facility] - Department of Dermatology [address], [address] [phone] documented in this encounter Visit Diagnoses Diagnosis Neoplasm of uncertain behavior of skin documented in this encounter
--- OUTSIDE RECORDS SUMMARY | 2024-11-21 09:58 | XMS_ITS | Clinical Summary ---
Author Organization [facility] Address [address] [place] [address] Care Team Providers Care Hand Icer Name Role Phone Yasmin Madden MD Primary [...] Encounters Date Type Department Care Team Description 11/10/2024 External Device Data STL ABSTRACTION Provider, Abstract 2024 External Device Data STL ABSTRACTION Provider, Abstract 10/20/2024 10:00 AM CDT Office Visit [facility] Oncology and Hematology - [address] [place] [address] Quintin Paniagua MD Iron overload (Primary Dx) 10/20/2024 Orders Only [facility] - [address] [place] [address] Quintin Paniagua MD 08/25/2024 External Device Data STL ABSTRACTION Provider, Abstract from Last 3 Months Family History Relation Name Status Comments Brother Alive Father Mother Alive Sister 1 Alive Sister 2 Alive Social History Tobacco Use Types Packs/Day Years Used Date Smoking Tobacco: Former Cigarettes 2 1963 Tobacco Cessation:Counseling Given: Not Answered Alcohol [...] CDT Respiratory Rate 15 04/01/2024 1:15 PM PROTECTION ENGINEER Oxygen Saturation 98% 10/20/2024 9:50 AM CDT Inhaled Oxygen Concentration - - Weight 74.8 kg (165 lb) 10/20/2024 9:50 AM CDT Height 175.3 cm (5' 9) 10/20/2024 9:50 AM CDT Body Mass Index 24.37 10/20/2024 9:50 AM CDT Plan of Treatment Upcoming Encounters Date Type Department Care Team (Late st Contact Info) Description 12/22/2024 10:00 AM CDT Office Visit [facility]cology [facility] Hematology - [address] [place] [address] Quintin Paniagua MD [address] [facility] [address] [place] [address] Health Maintenance Due Date Last Done Comments DTAP/TDAP/TD VACCINES (1 - Tdap) 1968 COLORECTAL SCREENING 1994 Colorectal Cancer Screening 1994 FIT-DNA Q 3 years 1994 FIT/FOBT Q 1 year 1994 Flex Sig/CT Colonography Q 5 years 1994 ZOSTER VACCINE (1 of 2) 10/28/1999 INFLUENZA VACCINE (#1) 2024 01/27/2024 RSV VACCINE (60+ or ) (1 - 1-dose 75+ series) 2024 COVID-19 Vaccine (3 - 2024- season) 2024, 08/25/2020 PNEUMOCOCCAL VACCINE 50+ YEARS Completed 05/06/2023 Abdominal [...] Resu lt from Last 3 Months Insurance [facility] Address: [address] [phone] Care Teams Hand Icer Relationship Specialty Start Date End Date Yasmin Madden MD PCP - General Internal Medicine 06/27/23
--- OUTSIDE RECORDS SUMMARY | 2024-11-21 09:58 | XMS_ITS | Clinical Summary ---
Author Organization [facility] Address [address] [place] [address] Care Team Providers Care Stock Taker Name Role Phone Unavailable Primary Care Provider Unavailabl e Source Comments [facility],non-owned Affiliates and Associated Physician Practices is amultiple site organization consisting of ambulatory clinics and hospital sitesin [place], [place], [place] and [place]. This disclosure is being madepursuant to the Care Everywhere program and may not contain all information available regarding this patient. Last updated 17.[facility] Encounters Date Type Department Care Team Description 11/16/2024 Telephone [facility] - Hematology/Oncology [address] [place] [phone] Bran Stroud MD Appointment (See notes) 11/16/2024 Telephone [facility] - Hematology/Oncology [address] [place] [address] Bran Stroud MD Appointment (See notes) 11/16/2024 Travel 11/04/2024 Lab Requisition [facility] - DermPath Lab [address] [place] [address] Randy Bravo MD Neoplasm of uncertain behavior of skin from Last 3 Months Social History Tobacco Use Types Packs/Day Years Used Date Smoking Tobacco: Never Assessed Sex and Gender Information Value Date Recorded Sex Assigned at Not on file 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 Gender Identity Not on file Sexual [...] 10/28/1999 ZOSTER VACCINE (1 of 2) 10/28/1999 DEPRESSION SCREENING 03/11/2024 MEDICARE AWV CALENDAR YEAR 2024 Respiratory Syncytial Virus (RSV) Vaccine Pt: or over 60 yrs (1 - 1-dose 75+ series) 2024 COVID-19 VACCINE (3 - 2024-2 6 season) 2024 03/02/2021, 08/25/2020 INFLUENZA VACCINE (#1) 2024 4, 12/09/2016 HEPATITIS [...] from Last 3 Months Results * DERMATOPATHOLOGY (11/04/2024 12:00 PM CDT) Case Report Dermatopathology Report Case: [id number] Authorizing Provider: Randy Bravo MD Collected: 11/04/2024 12:00 PM Ordering Location: [facility] - Received: 11/05/2024 01:28 PM [...] characteristic determined by the Dermatopathology Laboratory at [facility], directed by Dr. Hoa Zayas. These tests need not be, and therefore are not, approved by the [place] Food and Drug Administration. The tests are used for clinical purposes. Billing Codes Specimen Charges Stain Charges 43085 1 2:01 PM CDT DERMATOPATHOLOGY LABORATORY Embedded Images 2:01 PM CDT DERMATOPATHOLOGY LABORATORY Pathology/Cytolo gy TISSUE SPECIMEN FROM SKIN / Unknown 11/04/2024 12:00 PM CDT 11/05/2024 1:28 PM CDT Randy Bravo MD LAB - PATHOLOGY/CYTOLOGY ORDE FRANCIE Final Result DERMATOPATHOLOGY LABORATORY [facility] - Department of Dermatology [address] [place] [address], [facility] [phone] from Last 3 Months Insurance HUMANA MEDICARE ADV HMO & PPO Member Subscriber Plan / Payer (Ef fective 2018-Present) Name:Malu Mendiola Relation to Subscriber:Self Name:Malu Mendiola Payer ID:[id number] (NAIC) Group ID:Not on file Type:Medicare-Managed Care Address: [place] [id number] HUMAN SELF PAY NO INSURANCE Member Subscriber Plan / Payer (Ef fective for All Dates) Name:Malu Mendiola Member ID:Not on file Relation to Subscriber:Not on file Name:MALU MENDIOLA Subscriber ID:Not on file (Home) Address: [facility] [place] [address] Payer ID:Not on file Group ID:Not on file Type:Self Pay Address: [place], [place]
--- OUTSIDE RECORDS SUMMARY | 2024-11-21 09:58 | XMS_ITS | Clinical Summary ---
Author Organization [facility] Address [facility] [place] [address] Care Team Providers Care Cheese Specialist Name Role Phone Rey Heck MD Primary Care Provider [phone] Randy Bravo MD Unavailable [phone] Bran العراقي DO Unavailable [phone] Dave Parker MD Unavailable Allergies Active Allergy [...] Department Care Team Description 09/24/2024 Orders Only [facility] Cardiology [address] [place] [address] Ana Hackett NP 09/22/2024 Orders Only [facility] Cardiology [address] [place] [address] Dinah Stallings MD from Last 3 Months Immunizations Immunization Administration Dates Next Due Influenza, Unspecified 12/09/2016 [employer] (J&J) SARS-CoV-2 Vaccination 08/25/2020 Surgical History Surgery [...] on file Legal Sex Male 7:30 PM MORNING SHOW HOST Gender Identity Not on file Sexual Orientation Not on file 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 Not on file Not on file Obstetrics History Last Filed Vital Signs Vital Sign Reading Time Taken Comments Blood Pressure 101/57 04/11/2024 8:59 AM MORNING SHOW HOST Pulse 65 04/11/2024 8:59 AM MORNING SHOW HOST Temperature 37.1 C (98.8 F) 04/11/2024 8:59 AM MORNING SHOW HOST Respiratory Rate 17 04/11/2024 8:59 AM MORNING SHOW HOST Oxygen Saturation 96% 04/11/2024 8:59 AM MORNING SHOW HOST Inhaled Oxygen Concentration - - Weight 80.3 kg (177 lb) 04/10/2024 3:30 PM MORNING SHOW HOST Height 177.8 cm (5' 10) 04/10/2024 3:30 PM MORNING SHOW HOST Body Mass Index 25.4 04/10/2024 3:30 PM MORNING SHOW HOST Plan of Treatment Health Maintenance Due Date Last Done Comments Colon Cancer Screening-Colonoscopy 1950 Depression Screening 1950 DTaP/Tdap/Td Vaccine (1 - Tdap) 1960 Hepatitis B Screening 10/28/1967 Pneumococcal vaccine 65+ (1 of 2 - PCV) 1968 Zoster Vaccine (1 of 2) 10/28/1999 Abdominal Aortic Aneurysm (AAA) Screen 2014 Well Visit 65+ 2014 Covid-19 Vaccine ( season) 2024, 08/25/2020 Influenza Vaccine (#1) 2024 01/27/2024, 2016 Fall Risk Assessment 04/11/2025 04/11/2024 Hepatitis C Screening Completed 03/31/2018 Medical Devices Implanted Type Area Broker Assistant Device Identifier Shelf Expiration Date Model / Serial / Lot [facility] Vas Surgery 4.0 X 30mm [place] Rx Coronary Stent [id number] - [id number] Implanted:Qty: 1 on 07/25/2023 by Dave Parker MD at [facility] 03/30/2026 [id number] / / [id number] Bring Light Stent Drug Eluting S Megatron Us Mr 5.00x8mm [id number] - [id number] Implanted:Qty: 1 on 07/25/2023 by Dave Parker MD at [facility] Bring Light 10/30/2024 [id number] / / [id number] TerStyroPower Angio-Seal Vip 6fr Closere Device [id number] - [id number] Implanted:Qty: 1 on 07/25/2023 by Dave Parker MD at [facility] [employer] [id number] / / Piedra Vascular Xact 8-10mm 40mm Self Expand Closed Cell Flare End Freestyle 35919-61 - [id number] Implanted:Qty: 1 on 04/10/2024 by Varun Zarate MD at [facility] [employer] 09/07/2025 [id number] / / [id number] Terum[employer]TheBest Medical Sulma Angio-Seal Vip 6fr Closere Device [id number] - [id number] Implanted:Qty: 1 on 04/10/2024 by Varun Zarate MD at [facility] [employer] Sulma 09/17/2024 [id number] / / Procedures Procedure Name Priority Date/Time [...] HEPATITIS C ANTIBODY Routine 03/31/2018 3:12 PM MORNING SHOW HOST Porphyria cutanea tarda (HCC) from Last 3 [...] * Hepatitis C antibody (03/31/2018 3:12 PM MORNING SHOW HOST) Hep C Ab <0.1 0.0 - 0.9 s/co ratio [facility] - 01 Comment: Negative: < 0.8 Indeterminate: 0.8 - 0.9 Positive: > 0.9 The CDC recommends that a positive HCV antibody result be followed up with a HCV Nucleic Acid Amplification test (677282). Blood specimen (specimen) 03/31/2018 3:12 PM MORNING SHOW HOST 03/31/2018 Narrative [facility] - 04/01/2018 8:31 AM MORNING SHOW HOST Performed at: - [facility] [id number] Engineering Mathematician: Mihir Paul PhD, Phone: [phone] Bran العراقي DO LAB MICROBIOLOGY - GENERAL O RDERABLES Final Result [facility] - 01 from Last 3 Months or Most Recently Relevant to Health Maintenance Insurance HUMANA CHOICE MEDICARE PPO HUMANA MEDICARE HMO Advance Directives For more information, please contact: [phone] * Full Code (Latest Code Status on File) Date Activated Date Inactivated Comments 04/10/2024 11:03 AM 04/11/2024 7:10 PM * Full Code Date Activated Date Inactivated Comments 07/25/2023 10:42 AM 07/26/2023 6:13 PM Care Teams Cheese Specialist Relationship Specialty Start Date End Date Rey Heck MD PCP - General Internal Medicine 01/16/18 Randy Bravo MD Dermatology 01/20/18 Bran العراقي DO [address] [place] [address] Medical Oncologist/Hematologis t Hematology and Oncology 06/11/18 Dave Parker MD [address] [place] [address] Consulting Physician Cardiovascular Disease 07/26/23
--- OUTSIDE RECORDS SUMMARY | 2024-11-21 09:59 | XMS_ITS | Patient Health Record ---
Author Organization [facility] Address [address] [place] [address] Care Team Providers Care Assistant Professor Of Music Name Role Phone Robert Shultz Unavailable [phone] Reason For Referral No Information Medications Medication SIG (Take, Route, Frequency, Duration) Notes Start Date End Date Status Calcitriol 0.25 MCG 1 capsule Orally Onc e a day; Duration: 90 day(s) 07/22/2024 04/17/2025 Active Losartan Potassium 25 MG 1 tablet Orally Once a day; Duration: 90 day(s) 07/22/2024 Active Problems Problem Type SNOMED Code ICD Code Onset Dates Problem Status W/U Status Risk Notes Problem Diabetic renal disease (305356393) Type 2 diabetes mellitus with diabetic chronic kidney disease (E11.22) Active confirmed Problem Hyperlipidemia (02925582) Hyperlipidemia, unspecified (E78.5) Active confirmed Problem Cardiomyopathy (57202333) Cardiomyopathy, unspecified (I42.9) Active confirmed Problem Gastro-esophageal reflux disease without esophagitis (682519236) Gastro-esophageal reflux disease without esophagitis (K21.9) Active confirmed Problem Chronic kidney disease stage 4 (623501078) Chronic kidney disease, stage 4 (severe) (N18.4) Active confirmed Problem Renal osteodystrophy (15183123) Renal osteodystrophy (N25.0) Active confirmed Problem Secondary hyperparathyroidism of renal origin (80736346) Secondary hyperparathyroidism of renal origin (N25.81) Active confirmed Problem Proteinuria (98221648) Proteinuria, unspecified (R80.9) Active confirmed Problem Essential hypertension (41323886) Essential hypertension (I10) Active confirmed Problem Coronary artery disease (66712513) CAD (coronary artery disease) (I25.10) Active confirmed Encounters Encounter Location Date Provider Diagnosis [facility] [address] [facility] [address] [place] [address] 06/24/2024 Robert Shultz Chronic kidney disea se, stage 3 unspecified N18.30 ; Essential hypertension I10 ; Gastro-esophageal reflux disease without esophagitis K21.9 ; Hyperlipidemia, unspecified E78.5 ; CAD (coronary artery disease) I25.10 and Cardiomyopathy, unspecified I42.9 [facility] [address] [place] [address] 07/22/2024 Robert Shultz Chronic kidney disea se, stage 3a N18.31 ; Essential hypertension I10 ; Gastro-esophageal reflux disease without esophagitis K21.9 ; Hyperlipidemia, unspecified E78.5 ; CAD (coronary artery disease) I25.10 ; Cardiomyopathy, unspecified I42.9 ; Type 2 diabetes mellitus with diabetic chronic kidney disease E11.22 ; Renal osteodystrophy N25.0 ; Secondary hyperparathyroidism of renal origin N25.81 and Proteinuria, unspecified R80.9 [facility] [address] [place] [address] 09/02/2024 Robert Shultz Chronic kidney disea se, stage 4 (severe) N18.4 ; Essential hypertension I10 ; Gastro-esophageal reflux disease without esophagitis K21.9 ; Hyperlipidemia, unspecified E78.5 ; CAD (coronary artery disease) I25.10 ; Cardiomyopathy, unspecified I42.9 ; Type 2 diabetes mellitus with diabetic chronic kidney disease E11.22 ; Renal osteodystrophy N25.0 ; Secondary hyperparathyroidism of renal origin N25.81 and Proteinuria, unspecified R80.9 [facility] [address] [place] [address] 07/22/2024 Robert Shultz Assessments Encounter Date Diagnosis [...]
--- OUTSIDE RECORDS SUMMARY | 2024-11-21 09:59 | XMS_ITS | Clinical Summary ---
Author Organization [facility] Address [address] [place] [address] Phone Care Team Providers Care Supervisor Stage Carpentry Name Role Phone Rey Heck MD Primary Care Provider [phone] Social History Tobacco Use Types Packs/Day Years [...] topic Insurance MEDICARE C HUMANA Care Teams Supervisor Stage Carpentry Relationship Specialty Start Date End Date Rey Heck MD PCP - General Internal Medicine 03/18/18
[2024-11-21 10:41] LABS: Albumin Level 3.9 g/dL (3.5-5.1); Anion Gap 10 mmol/L (4-12); Blood Urea Nitrogen 26 mg/dL (9-20); Calcium 9.0 mg/dL (8.4-10.2); Carbon Dioxide 20 mmol/L (22-30); Chloride 112 mmol/L (98-107); Estimated Glomerular Filt Rate 31; Glucose 93 mg/dL (65-110); Potassium 3.6 mmol/L (3.4-5.0); Sodium 142 mmol/L (137-145)
== END 2024-11-21 09:55 | disposition home or self-care (01) ==
LOC: ANHIMG 09:56 → ANHLAB 10:33
PROVIDERS: PCP Internal Medicine; Visit Provider Internal Medicine Nephrology
DX: N17.9 Acute kidney failure, unspecified (principal); Z99.2 Dependence on renal dialysis
CPT/HCPCS: 36415; 80069

== ENCOUNTER 2024-12-10 09:32 | Outpatient (CLI) | payer MEDICARE, SELFPAY ==
--- OUTSIDE RECORDS SUMMARY | 2024-06-24 10:15 | XMS_ITS ---
Author Organization [facility] Address [address] [facility] [address] [facility] [address] [place] [address] Care Team Providers Care Automotive Light Mechanic Name Role Phone Carrington Robert Unavailable [phone] Problems Problem Type SNOMED Code ICD Code Onset Dates Problem Status W/U Status Risk Notes Problem Essential hypertension (85432907) Essential hypertension (I10) Active confirmed Problem Gastro-esophageal reflux disease without esophagitis (095832146) Gastro-esophagea l reflux disease without esophagitis (K21.9) Active confirmed Problem Hyperlipidemia (68713892) Hyperlipidemia, unspecified (E78.5) Active confirmed Problem Coronary artery disease (70934849) CAD (coronary artery disease) (I25.10) Active confirmed Problem Cardiomyopathy (68730342) Cardiomyopathy, unspecified (I42.9) Active confirmed Encounters Encounter Location Date Provider Diagnosis [place] [facility] [address] [facility] [address] [place] [address] 06/24/2024 Robert Shultz Chronic kidney disease, stage [...] * MALU MENDIOLADOB: 0 (74 yo M)Acc No.[id number]:06/24/2024 Progress Notes Patient: MALU JIMENES Provider: Regis SIDDIQUI MD, Saranya.Carlos.Jose Manuel.P, F.A.S.N. :1950 A ge:73 Y S ex:Male Date:06/24/2024 Address:[address] [place] [address] Subjective: * Chief Complaints: * * Medical [...] Treatment: * Billing Information: * Visit Code: 72299 Office Visit, New Pt., Level 5. * Procedure Codes: * Electronic signature of Gaudencio Shultz MD on 12/10/2024 at 10:00 AM CDT Sign off status: Pending * Provider: Regis SIDDIQUI MD, Saranya.Carlos.Jose Manuel.P, F.A.S.N. Date: 0 06/24/2024 Generated for Printing/Faxing/eTransmitting on: 1 10:00 AM CDT
--- OUTSIDE RECORDS SUMMARY | 2024-07-22 10:30 | XMS_ITS ---
Author Organization [facility] Address [address] [place] [address] Care Team Providers Care Ribber Name Role Phone Robert Shultz Unavailable [phone] Problems Problem Type SNOMED Code ICD Code Onset Dates Problem Status W/U Status Risk Notes Problem Diabetic renal disease (740405229) Type 2 diabetes mellitus with diabetic chronic kidney disease (E11.22) Active confirmed Problem Renal osteodystrophy (07494355) Renal osteodystrophy (N25.0) Active confirmed Problem Secondary hyperparathyroidism of renal origin (60705030) Secondary hyperparathyroidism of renal origin (N25.81) Active confirmed Problem Proteinuria (55967659) Proteinuria, unspecified (R80.9) Active confirmed Encounters Encounter Location Date Provider Diagnosis [facility] [address] [facility] [address] [place] [address] 07/22/2024 Robert Shultz Chronic kidney disea se, stage 3a N18.31 ; Essential hypertension I10 ; Gastro-esophageal reflux disease without esophagitis K21.9 ; Hyperlipidemia, unspecified E78.5 ; CAD (coronary artery disease) I25.10 ; Cardiomyopathy, unspecified I42.9 ; Type 2 diabetes mellitus with diabetic chronic kidney disease E11.22 ; Renal osteodystrophy N25.0 ; Secondary hyperparathyroidism of renal origin N25.81 and Proteinuria, unspecified R80.9 Assessments Encounter Date Diagnosis (ICD Code) Assessment Notes Treatment Notes Treatment Clinical Notes Section Notes 07/22/2024 Chronic kidney disea se, stage 3a (ICD-10 - N18.31) 07/22/2024 Essential hypertensi on (ICD-10 - I10) 07/22/2024 Gastro-esophageal reflux disease without esophagitis (ICD-10 - K21.9) 07/22/2024 Hyperlipidemia, unspecified (ICD-10 - E78.5) 07/22/2024 CAD (coronary artery disease) (ICD-10 - I25.10) 07/22/2024 Cardiomyopathy, unspecified (ICD-10 - I42.9) 07/22/2024 Type 2 diabetes mellitus with diabetic chronic kidney disease (ICD-10 - E11.22) 07/22/2024 Renal osteodystrophy (ICD-10 - N25.0) 07/22/2024 Secondary hyperparathyroidism of renal origin (ICD-10 - N25.81) 07/22/2024 Proteinuria, unspecified (ICD-10 - R80.9) Plan Of Treatment No Information Progress Notes * MALU MENDIOLADOB: 0 (74 yo M)Acc No.[id number]:07/22/2024 Progress Notes Patient: MALU JIMENES Provider: Regis SIDDIQUI MD, F.A.C.P, F.A.S.N. :1950 A ge:73 Y S ex:Male Date:07/22/2024 Address:[address] [place] [address] Subjective: * Chief Complaints: * * Medical History: Objective: * Vitals: Assessment: * Assessment: 1. C hronic kidney disease, stage 3a - N18.31 (Primary) 2 . E ssential hypertension - I10 3 . G kai-esophageal reflux disease without esophagitis - K21.9? 4. H yperlipidemia, unspecified - E78.5 5 . C AD (coronary artery disease) - I25.10 6 . C ardiomyopathy, unspecified - I42.9 ?7. T ype 2 diabetes mellitus with diabetic chronic kidney disease - E11.22 8 . R enal osteodystrophy - N25.0 9 . S econdary hyperparathyroidism of renal origin - N25.81 1 0. P roteinuria, unspecified - R80.9 Plan: * Treatment: * Billing Information: * Visit Code: 43960 Office Visit, Est Pt., Level 4. * Procedure Codes: * Electronic signature of Gaudencio Shultz MD on 12/10/2024 at 10:01 AM CDT Sign off status: Pending * Provider: Regis SIDDIQUI MD, F.A.C.P, F.A.S.N. Date: 0 07/22/2024 Generated for Printing/Faxing/eTransmitting on: 1 10:01 AM CDT
--- OUTSIDE RECORDS SUMMARY | 2024-09-02 12:30 | XMS_ITS ---
Author Organization [facility] Address [address] [address] [place] [address] Care Team Providers Care Icu Rn Name Role Phone Shultz Robert Unavailable [phone] Problems Problem Type SNOMED Code ICD Code Onset Dates Problem Status W/U Status Risk Notes Problem Chronic kidney disease stage 4 (378589220) Chronic kidney disease, stage 4 (severe) (N18.4) Active confirmed Encounters Encounter Location Date Provider Diagnosis [place] [facility] [address] [facility] 15 [place] [address] 09/02/2024 Robert Shultz Chronic kidney disea se, [...] * MALU MENDIOLADOB: 0 (74 yo M)Acc No.[id number]:09/02/2024 Patient: MALU JIMENES Provider: Regis SIDDIQUI MD, F.Carlos.C.P, F.A.S.N. :1950 A ge:73 Y S ex:Male Date:09/02/2024 Address:[address] [place] [address] Subjective: * Chief Complaints: Objective: Assessment: * [...] Plan: * Billing Information: * Visit Code: 73107 Office Visit, Est Pt., Level 5. * Procedure Codes: * Electronic signature of Gaudencio Shultz MD on 12/10/2024 at 10:01 AM CDT Sign off status: Pending * Provider: Regis SIDDIQUI MD, F.A.C.P, F.A.S.N. Date: 0 09/02/2024 Generated for Printing/Faxing/eTransmitting on: 1 10:01 AM CDT
[2024-12-10 09:48] LABS: Hematocrit 23.8 % (42.0-52.0); Hemoglobin 7.7 g/dL (14.0-18.0); Mean Corpuscular HGB Conc 32.4 g/dl (32-36); Mean Corpuscular Hemoglobin 31.0 pg (26-34); Mean Corpuscular Volume 96.0 fl (80-100); Platelet Count Result 158 k/mm3 (150-375); Red Blood Count 2.48 M/mm3 (4.6-6.20); White Blood Count 7.1 K/mm3 (4.5-10.0)
--- OUTSIDE RECORDS SUMMARY | 2024-12-10 10:01 | XMS_ITS | Clinical Summary ---
Author Organization [facility] Address [facility] [place] [address] Care Team Providers Care Catholic Priest Name Role Phone Rey Heck MD Primary Care Provider [phone] Randy Bravo MD Unavailable [phone] Bran العراقي DO Unavailable [phone] Dave Parker MD Unavailable Allergies Active Allergy [...] Department Care Team Description 09/24/2024 Orders Only [facility] Cardiology [address] [place] [address] Ana Hackett NP 09/22/2024 Orders Only [facility] Cardiology [address] [place] [address] Dinah Stallings MD from Last 3 Months Immunizations Immunization Administration Dates Next Due Influenza, Unspecified 12/09/2016 [employer] (J&J) SARS-CoV-2 Vaccination 08/25/2020 Surgical History Surgery [...] on file Legal Sex Male 7:30 PM ROLL TUBE SETTER Gender Identity Not on file Sexual Orientation Not on file 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 file Not on file Obstetrics History Last Filed Vital Signs Vital Sign Reading Time Taken Comments Blood Pressure 101/57 04/11/2024 8:59 AM ROLL TUBE SETTER Pulse 65 04/11/2024 8:59 AM ROLL TUBE SETTER Temperature 37.1 C (98.8 F) 04/11/2024 8:59 AM ROLL TUBE SETTER Respiratory Rate 17 04/11/2024 8:59 AM ROLL TUBE SETTER Oxygen Saturation 96% 04/11/2024 8:59 AM ROLL TUBE SETTER Inhaled Oxygen Concentration - - Weight 80.3 kg (177 lb) 04/10/2024 3:30 PM ROLL TUBE SETTER Height 177.8 cm (5' 10) 04/10/2024 3:30 PM ROLL TUBE SETTER Body Mass Index 25.4 04/10/2024 3:30 PM ROLL TUBE SETTER Plan of Treatment Health Maintenance Due Date [...] Completed 03/31/2018 Medical Devices Implanted Type Area Drum Cleaner Device Identifier Shelf Expiration Date Model / Serial / Lot [facility] Vas Surgery 4.0 X 30mm [place] Rx Coronary Stent [id number] - [id number] Implanted:Qty: 1 on 07/25/2023 by Dave Parker MD at [facility] 03/30/2026 [id number] / / [id number] [employer]ert Stent Drug Eluting S Megatron Us Mr 5.00x8mm [id number] - [id number] Implanted:Qty: 1 on 07/25/2023 by Dave Parker MD at [facility] [employer] 10/30/2024 [id number] / / [id number] TerFilterEasy Angio-Seal Vip 6fr Closere Device [id number] - [id number] Implanted:Qty: 1 on 07/25/2023 by Dave Parker MD at [facility] [employer] [id number] / / Piedra Vascular Xact 8-10mm 40mm Self Expand Closed Cell Flare End Freestyle 75219-85 - [id number] Implanted:Qty: 1 on 04/10/2024 by Varun Zarate MD at [facility] [employer] 09/07/2025 [id number] / / [id number] Terum[employer] Sulma Angio-Seal Vip 6fr Closere Device [id number] - [id number] Implanted:Qty: 1 on 04/10/2024 by Varun Zarate MD at [facility] [employer] Sulma 09/17/2024 [id number] / / Procedures Procedure Name Priority Date/Time [...] HEPATITIS C ANTIBODY Routine 03/31/2018 3:12 PM ROLL TUBE SETTER Porphyria cutanea tarda (HCC) from Last 3 [...] * Hepatitis C antibody (03/31/2018 3:12 PM ROLL TUBE SETTER) Hep C Ab <0.1 0.0 - 0.9 s/co ratio [facility] - 01 Comment: Negative: < 0.8 Indeterminate: 0.8 - 0.9 Positive: > 0.9 The CDC recommends that a positive HCV antibody result be followed up with a HCV Nucleic Acid Amplification test (331783). Blood specimen (specimen) 03/31/2018 3:12 PM ROLL TUBE SETTER 03/31/2018 Narrative [facility] - 04/01/2018 8:31 AM ROLL TUBE SETTER Performed at: - [facility] [id number] Sagger Preparer: Mihir Paul PhD, Phone: [phone] Bran العراقي DO LAB MICROBIOLOGY - GENERAL O RDERABLES Final Result [facility] - 01 from Last 3 Months or Most Recently Relevant to Health Maintenance Insurance HUMANA CHOICE MEDICARE PPO HUMANA MEDICARE HMO Advance Directives For more information, please contact: [phone] * Full Code (Latest Code Status on File) Date Activated Date Inactivated Comments 04/10/2024 11:03 AM 04/11/2024 7:10 PM * Full Code Date Activated Date Inactivated Comments 07/25/2023 10:42 AM 07/26/2023 6:13 PM Care Teams Catholic Priest Relationship Specialty Start Date End Date Rey Heck MD PCP - General Internal Medicine 01/16/18 Randy Bravo MD Dermatology 01/20/18 Bran العراقي DO [address] [place] [address] Medical Oncologist/Hematologis t Hematology and Oncology 06/11/18 Dave Parker MD [address] [place] [address] Consulting Physician Cardiovascular Disease 07/26/23
--- OUTSIDE RECORDS SUMMARY | 2024-12-10 10:01 | XMS_ITS | Encounter Summary ---
Author Organization [facility] Address [address] [place] [address] Care Team Providers Care Adult Education Teacher Name Role Phone Unavailable Primary Care Provider Unavailabl e Encounter Details Date Type Department Care Team (Late st Contact Info) Description 06/17/2024 Lab Requisition [facility] - DermPath Lab [address] [place] [phone] Randy Bravo MD [facility] DERMATOLOGY [address] [place] [phone] Neoplasm of uncertain behavior of skin Social History Tobacco Use Types Packs/Day Years Used Date Smoking Tobacco: Never Assessed Sex and Gender Information Value Date Recorded Sex Assigned at Not on file Legal Sex Male 4:35 PM COLLECTIONS DIRECTOR Gender Identity Not on file Sexual Orientation Not on file documented as of this encounter Plan of Treatment Not on file documented as of this encounter Procedures Procedure Name Priority Date/Time Associated Diagnosis Comments DERMATOPATHOLOGY Routine 06/17/2024 3:33 AM CDT Neoplasm of uncertain behavior of skin documented in this encounter Results * DERMATOPATHOLOGY (06/17/2024 3:33 AM CDT) Case Report Dermatopathology Report Case: [id number] Authorizing Provider: Randy Bravo MD Collected: 06/17/2024 [...] characteristic determined by the Dermatopathology Laboratory at [facility], directed by Dr. Hoa Zayas. These tests need not be, and therefore are not, approved by the [place] Food and Drug Administration. The tests are used for clinical purposes. Billing Codes Specimen Charges Stain Charges 92964 1 1:05 PM CDT DERMATOPATHOLOGY LABORATORY Embedded Images 1:05 PM CDT DERMATOPATHOLOGY LABORATORY Pathology/Cytolo gy TISSUE SPECIMEN FROM SKIN / Unknown 06/17/2024 3:33 AM CDT 06/18/2024 12:37 PM CDT Randy Bravo MD LAB - PATHOLOGY/CYTOLOGY ORDE FRANCIE Final Result DERMATOPATHOLOGY LABORATORY [facility] - Department of Dermatology [address] [phone] documented in this encounter Visit Diagnoses Diagnosis Neoplasm of uncertain behavior of skin documented in this encounter
--- OUTSIDE RECORDS SUMMARY | 2024-12-10 10:01 | XMS_ITS | Clinical Summary ---
Author Organization [facility] Paula Montelongo Address [address] [place] [address] Care Team Providers Care Specialty Therapist Name Role Phone Yasmin Madden MD Primary [...] Abstract 10/20/2024 10:00 AM CDT Office Visit [facility] Oncology and Hematology - [address] [place] [address] Quintin Paniagua MD Iron overload (Primary Dx) 10/20/2024 Orders Only [facility] Oncology and Hematology [facility] [address] [place] [address] Quintin Paniagua MD from Last 3 Months Family History Relation [...] CDT Respiratory Rate 15 04/01/2024 1:15 PM DIRECTOR OF MUSIC Oxygen Saturation 98% 10/20/2024 9:50 AM CDT Inhaled Oxygen Concentration - - Weight 74.8 kg (165 lb) 10/20/2024 9:50 AM CDT Height 175.3 cm (5' 9) 10/20/2024 9:50 AM CDT Body Mass Index 24.37 10/20/2024 9:50 AM CDT Plan of Treatment Upcoming Encounters Date Type Department Care Team (Late st Contact Info) Description 12/22/2024 10:00 AM CDT Office Visit [facility] Oncology and Hematology - [address] [place] [address] Quintin Paniagua MD [address] [address] [facility] [address] [place] [address] Health Maintenance Due Date Last Done Comments DTAP/TDAP/TD VACCINES (1 - Tdap) 1968 COLORECTAL SCREENING 1994 Colorectal Cancer Screening 1994 FIT-DNA Q 3 years 1994 FIT/FOBT Q 1 year 1994 Flex Sig/CT Colonography Q 5 years 1994 ZOSTER VACCINE (1 of 2) 10/28/1999 Medicare Advantage (ND) Prev entative Visit/Annual Wellness Visit 03/11/2024 10/21/2023 INFLUENZA VACCINE (#1) 2024 01/27/2024 RSV VACCINE [...] METABOLIC PANEL (10/20/2024 1:24 PM CDT) Blood us Quintin Paniagua MD CHEMISTRY ORDERABLES Final Resu lt * COMPREHENSIVE METABOLIC PANEL (10/20/2024 1:18 PM CDT) Blood us Quintin Paniagua MD CHEMISTRY ORDERABLES Final Resu lt from Last [address] [place] [address] [place] [address] [facility] [place] Address: [place] [phone] Care Teams Specialty Therapist Relationship Specialty Start Date End Date Yasmin Madden MD PCP - General Internal Medicine 06/27/23
--- OUTSIDE RECORDS SUMMARY | 2024-12-10 10:01 | XMS_ITS | Encounter Summary ---
Author Organization [facility] Address [address] [place] [address] Care Team Providers Care Machine Maintenance Mechanic Name Role Phone Unavailable Primary Care Provider Unavailabl e Encounter Details Date Type Department Care Team (Late st Contact Info) Description 11/04/2024 Lab Requisition [facility] - DermPath Lab [address] [place] [phone] Randy Bravo MD [facility] DERMATOLOGY [address] [place] [phone] Neoplasm of uncertain behavior of skin Social History Tobacco Use Types Packs/Day Years Used Date Smoking Tobacco: Never Assessed Sex and Gender Information Value Date Recorded Sex Assigned at Not on file Legal Sex Male 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 Gender Identity Not on file Sexual Orientation Not on file documented as of this encounter Plan of Treatment Not on file documented as of this encounter Procedures Procedure Name Priority Date/Time Associated Diagnosis Comments DERMATOPATHOLOGY Routine 11/04/2024 12:0 0 PM CDT Neoplasm of uncertain behavior of skin documented in this encounter Results * DERMATOPATHOLOGY (11/04/2024 12:00 PM CDT) Case Report Dermatopathology Report Case: [id number] Authorizing Provider: Randy Bravo MD Collected: 11/04/2024 12:00 PM Ordering Location: [facility] - Received: 11/05/2024 01:28 PM [...] characteristic determined by the Dermatopathology Laboratory at [facility], directed by Dr. Hoa Zayas. These tests need not be, and therefore are not, approved by the [place] Food and Drug Administration. The tests are used for clinical purposes. Billing Codes Specimen Charges Stain Charges 61864 1 2:01 PM CDT DERMATOPATHOLOGY LABORATORY Embedded Images 2:01 PM CDT DERMATOPATHOLOGY LABORATORY Pathology/Cytolo gy TISSUE SPECIMEN FROM SKIN / Unknown 11/04/2024 12:00 PM CDT 11/05/2024 1:28 PM CDT Randy Bravo MD LAB - PATHOLOGY/CYTOLOGY GIBRAN MARMOLEJO Final Result DERMATOPATHOLOGY LABORATORY [facility] - Department of Dermatology [address], [address] [phone] documented in this encounter Visit Diagnoses Diagnosis Neoplasm of uncertain behavior of skin documented in this encounter
--- OUTSIDE RECORDS SUMMARY | 2024-12-10 10:02 | XMS_ITS | Patient Health Record ---
Author Organization [facility] Address [address] [place] [address] Care Team Providers Care Rug Dry Room Attendant Name Role Phone Robert Shultz Unavailable [phone] Reason For Referral No Information Medications Medication [...] Status Risk Notes Problem Diabetic renal disease (953353170) Type 2 diabetes mellitus with diabetic chronic kidney disease (E11.22) Active confirmed Problem Hyperlipidemia (54304860) Hyperlipidemia, unspecified (E78.5) Active confirmed Problem Cardiomyopathy (42376199) Cardiomyopathy, unspecified (I42.9) Active confirmed Problem Gastro-esophageal reflux disease without esophagitis (900071414) Gastro-esophageal reflux disease without esophagitis (K21.9) Active confirmed Problem Chronic kidney disease stage 4 (750773970) Chronic kidney disease, stage 4 (severe) (N18.4) Active confirmed Problem Renal osteodystrophy (50460718) Renal osteodystrophy (N25.0) Active confirmed Problem Secondary hyperparathyroidism of renal origin (21481733) Secondary hyperparathyroidism of renal origin (N25.81) Active confirmed Problem Proteinuria (28642124) Proteinuria, unspecified (R80.9) Active confirmed Problem Essential hypertension (40643088) Essential hypertension (I10) Active confirmed Problem Coronary artery disease (97204950) CAD (coronary artery disease) (I25.10) Active confirmed Encounters Encounter Location Date Provider Diagnosis [facility] [address] [facility] [address] [place] [address] 06/24/2024 Robert Shultz Chronic kidney disea se, stage 3 unspecified N18.30 ; Essential hypertension I10 ; Gastro-esophageal reflux disease without esophagitis K21.9 ; Hyperlipidemia, unspecified E78.5 ; CAD (coronary artery disease) I25.10 and Cardiomyopathy, unspecified I42.9 [facility] [address] [place] [address] 07/22/2024 Robert Shultz Chronic kidney disea se, stage 3a N18.31 ; Essential hypertension I10 ; Gastro-esophageal reflux disease without esophagitis K21.9 ; Hyperlipidemia, unspecified E78.5 ; CAD (coronary artery disease) I25.10 ; Cardiomyopathy, unspecified I42.9 ; Type 2 diabetes mellitus with diabetic chronic kidney disease E11.22 ; Renal osteodystrophy N25.0 ; Secondary hyperparathyroidism of renal origin N25.81 and Proteinuria, unspecified R80.9 [facility] [address] [place] [address] 09/02/2024 Robert Shultz Chronic kidney disea se, stage 4 (severe) N18.4 ; Essential hypertension I10 ; Gastro-esophageal reflux disease without esophagitis K21.9 ; Hyperlipidemia, unspecified E78.5 ; CAD (coronary artery disease) I25.10 ; Cardiomyopathy, unspecified I42.9 ; Type 2 diabetes mellitus with diabetic chronic kidney disease E11.22 ; Renal osteodystrophy N25.0 ; Secondary hyperparathyroidism of renal origin N25.81 and Proteinuria, unspecified R80.9 [facility] [address] [place] [address] 07/22/2024 Robert Shultz Assessments Encounter Date Diagnosis [...]
--- OUTSIDE RECORDS SUMMARY | 2024-12-10 10:02 | XMS_ITS | Clinical Summary ---
Author Organization [facility] Address [address] [facility] [place] [address] Care Team Providers Care Lending Manager Name Role Phone Unavailable Primary Care Provider Unavailabl e Source Comments [facility],non-owned Affiliates and Associated Physician Practices is amultiple site organization consisting of ambulatory clinics and hospital sitesin [place], [place], [place] and [place]. This disclosure is being madepursuant to the Care Everywhere program and may not contain all information available regarding this patient. Last updated 17.[facility] Encounters Date Type Department Care Team Description 11/16/2024 Telephone [facility] - Hematology/Oncology [address] [place] [phone] Bran Stroud MD Appointment (See notes) 11/16/2024 Telephone [facility] - Hematology/Oncology [address] [place] [address] Bran Stroud MD Appointment (See notes) 11/16/2024 Travel 11/04/2024 Lab Requisition [facility] - DermPath Lab [address] [place] [phone] Randy Bravo MD Neoplasm of uncertain behavior of skin from Last 3 Months Social History Tobacco Use Types Packs/Day Years Used Date Smoking Tobacco: Never Assessed Sex and Gender Information Value Date Recorded Sex Assigned at Not on file 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 Billing Codes Specimen Charges Stain Charges 07576 1 2:01 PM CDT DERMATOPATHOLOGY LABORATORY Embedded Images 2:01 PM CDT DERMATOPATHOLOGY LABORATORY Pathology/Cytolo gy TISSUE SPECIMEN FROM SKIN / Unknown 11/04/2024 12:00 PM CDT 11/05/2024 1:28 PM CDT Randy Bravo MD LAB - PATHOLOGY/CYTOLOGY ORDE FRANCIE Final Result DERMATOPATHOLOGY LABORATORY [facility] - Department of Dermatology [address] [place] [address], [facility] [phone] from Last 3 Months Insurance [employer] MEDICARE ADV HMO & PPO Member Subscriber Plan / Payer (Ef fective 2018-Present) Name:Malu Mendiola Relation to Subscriber:Self Name:Malu Mendiola Payer ID:[id number] (NAIC) Group ID:Not on file Type:Medicare-Managed Care Address: [place] [id number] HUMAN SELF PAY NO INSURANCE Member Subscriber Plan / Payer (Ef fective for All Dates) Name:Malu Mendiola Member ID:Not on file Relation to Subscriber:Not on file Name:MALU MENDIOLA Subscriber ID:Not on file (Home) [facility] [place] [address] Payer ID:Not on file Group ID:Not on file Type:Self Pay Address: [place], [place]
--- OUTSIDE RECORDS SUMMARY | 2024-12-10 10:02 | XMS_ITS | Encounter Summary ---
Author Organization [facility] Address [address] [place] [address] Care Team Providers Care Voicer Name Role Phone Unavailable Primary Care Provider Unavailabl e Encounter Details Date Type Department Care Team (Late st Contact Info) Description 04/30/2023 Lab Requisition [facility] - DermPath Lab [address] [place] [phone] Randy Bravo MD [facility] DERMATOLOGY [address] [place] [phone] Neoplasm of uncertain behavior of skin Social History Tobacco Use Types Packs/Day Years Used Date Smoking Tobacco: Never Assessed Sex and Gender Information Value Date Recorded Sex Assigned at Not on file 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 Gender Identity Not on file Sexual Orientation Not on file documented as of this encounter Plan of Treatment Not on file documented as of this encounter Procedures Procedure Name Priority Date/Time Associated Diagnosis Comments DERMATOPATHOLOGY Routine 04/30/2023 3:33 AM TOURIST CAMP ATTENDANT Neoplasm of uncertain behavior of skin documented in this encounter Results * DERMATOPATHOLOGY (04/30/2023 3:33 AM TOURIST CAMP ATTENDANT) Case Report Dermatopathology Report Case: [id number] Authorizing Provider: Randy Bravo MD Collected: 04/30/2023 03:33 AM Ordering Location: [facility] DermPath Lab Received: 05/01/2023 01:16 PM Pathologist: Latrice Thibodeaux MD Specimens: A) - Skin, left hand B) - Skin, left ear 2:31 PM TOURIST CAMP ATTENDANT DERMATOPATHOLOGY LABORATORY Final Diagnosis Specimen A. SKIN, left hand: SUPERFICIAL (FOCALLY INVASIVE) SQUAMOUS CELL CARCINOMA ARISING IN AN ACTINIC KERATOSIS (C44.629) Specimen B. SKIN, left ear: BASAL CELL CARCINOMA, FRAGMENTS OF (C44.219) (see microscopic description) 2:31 PM [facility] DERMATOPATHOLOGY LABORATORY at [address] TOURIST CAMP ATTENDANT Clinical History A: Squamous Cell Carcinoma B: Basal Cell Carcinoma 2:31 PM [facility] DERMATOPATHOLOGY LABORATORY Gross Description Specimen A: [...] measuring 2x1x1 mm. Jar 0. 2:31 PM [facility] DERMATOPATHOLOGY LABORATORY Microscopic Description Specimen A. [...] sections were obtained and reviewed. 2:31 PM [facility] DERMATOPATHOLOGY LABORATORY Disclaimer An external and internal positive and negative controls are appropriate for the histochemical, immunohistochemical and immunofluorescence stain(s) in this case (if any), except where stated explicitly. The performance characteristics of the stain(s) cited in this report were developed and its performance characteristic determined by the Dermatopathology Laboratory at [facility], directed by Dr. Hoa Zayas. These tests need not be, and therefore are not, approved by the [place] Food and Drug Administration. The tests are used for clinical purposes. Billing Codes Specimen Charges Stain Charges 24392 11162 1 1 97603 1 2:31 PM [facility] DERMATOPATHOLOGY LABORATORY Embedded Images 2:31 PM [facility] DERMATOPATHOLOGY LABORATORY Pathology/Cytology TISSUE SPECIMEN FROM SKIN / Unknown 04/30/2023 3:33 AM TOURIST CAMP ATTENDANT 05/01/2023 1:16 PM TOURIST CAMP ATTENDANT Miscellaneous samples (specimen) TISSUE SPECIMEN FROM SKIN / Unknown 04/30/2023 3:33 AM TOURIST CAMP ATTENDANT 05/01/2023 1:29 PM TOURIST CAMP ATTENDANT us Randy Bravo MD LAB - PATHOLOGY/CYTOLOGY GIBRAN MARMOLEJO Final Result DERMATOPATHOLOGY LABORATORY [facility] - Department of Dermatology [facility] Medicine [address] [place] [address], [address] [phone] documented in this encounter Visit Diagnoses Diagnosis Neoplasm of uncertain behavior of skin documented in this encounter
--- OUTSIDE RECORDS SUMMARY | 2024-12-10 10:02 | XMS_ITS | Clinical Summary ---
Author Organization [facility] Address [address] [place] [address] Phone Care Team Providers Care Unemployment Claims Adjudicator Name Role Phone Rey Heck MD Primary Care Provider [phone] Social History Tobacco Use Types Packs/Day Years [...] 10/28/1999 Zoster Immunization (1 of 2) 10/28/1999 Medicare Initial AWV G0438 03/11/2019 Respiratory Syncytial Virus (RSV) Immunization (Adult) (1 - 1-dose 75+ series) 2024 Influenza Immunization (#1) 2024 12/09/2016 SARS-COV-2 Immunization ( season) 2024 03/02/2021, 08/25/2020 Hepatitis B Immunization Aged Out No longer [...] topic Insurance MEDICARE C HUMANA Care Teams Unemployment Claims Adjudicator Relationship Specialty Start Date End Date Rey Heck MD PCP - General Internal Medicine 03/18/18
[2024-12-10 10:16] LABS: Anion Gap 10 mmol/L (4-12); Blood Urea Nitrogen 27 mg/dL (9-20); Calcium 9.1 mg/dL (8.4-10.2); Carbon Dioxide 20 mmol/L (22-30); Chloride 112 mmol/L (98-107); Estimated Glomerular Filt Rate 22; Glucose 100 mg/dL (65-110); Potassium 3.7 mmol/L (3.4-5.0); Sodium 142 mmol/L (137-145)
[2024-12-10 10:34] LABS: Iron 78 ug/dL (49-181)
[2024-12-10 10:43] LABS: Percent Iron Saturation 27 % (20-50)
[2024-12-10 11:15] LABS: Ferritin 336.00 ng/mL (11.1-264)
== END 2024-12-10 09:33 | disposition home or self-care (01) ==
LOC: ANHLAB 09:33
PROVIDERS: PCP Internal Medicine; Visit Provider Internal Medicine Hematology & Oncology
DX: E83.19 Other disorders of iron metabolism (principal)
CPT/HCPCS: 36415; 80048; 82728; 83540; 83550; 85027

== ENCOUNTER 2025-02-10 08:09 | Outpatient (CLI) | payer MEDICARE, SELFPAY ==
--- OUTSIDE RECORDS SUMMARY | 2025-02-10 08:18 | XMS_ITS | Encounter Summary ---
Author Organization [facility] Address [address] [facility] [place] [address] Care Team Providers Care Firebreak Cutter Name Role Phone Unavailable Primary Care Provider Unavailabl e Encounter Details Date Type Department Care Team (Late st Contact Info) Description 11/04/2024 Lab Requisition [facility] - DermPath Lab [address] [place] [phone] Randy Bravo MD [facility] DERMATOLOGY [address] [place] [phone] Neoplasm of uncertain behavior of skin Social History Tobacco Use Types Packs/Day Years Used Date Smoking Tobacco: Never Assessed Sex and Gender Information Value Date Recorded Sex Assigned at Not on file 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 Gender Identity Not on file Sexual Orientation Not on file documented as of this encounter Plan of Treatment Not on file documented as of this encounter Procedures Procedure Name Priority Date/Time Associated Diagnosis Comments DERMATOPATHOLOGY Routine 11/04/2024 12:0 0 PM CDT Neoplasm of uncertain behavior of skin documented in this encounter Results * DERMATOPATHOLOGY (11/04/2024 12:00 PM CDT) Case Report Dermatopathology Report Case: [id number] Authorizing Provider: Randy Bravo MD Collected: 11/04/2024 12:00 PM Ordering Location: [facility] - Received: 11/05/2024 01:28 PM [...] characteristic determined by the Dermatopathology Laboratory at [facility], directed by Dr. Hoa Zayas. These tests need not be, and therefore are not, approved by the [place] Food and Drug Administration. The tests are used for clinical purposes. Billing Codes Specimen Charges Stain Charges 72154 1 2:01 PM CDT DERMATOPATHOLOGY LABORATORY Embedded Images 2:01 PM CDT DERMATOPATHOLOGY LABORATORY Pathology/Cytolo gy TISSUE SPECIMEN FROM SKIN / Unknown 11/04/2024 12:00 PM CDT 11/05/2024 1:28 PM CDT Randy Bravo MD LAB - PATHOLOGY/CYTOLOGY GIBRAN MARMOLEJO Final Result DERMATOPATHOLOGY LABORATORY [facility] - Department of Dermatology [address], [address] [phone] documented in this encounter Visit Diagnoses Diagnosis Neoplasm of uncertain behavior of skin documented in this encounter
--- OUTSIDE RECORDS SUMMARY | 2025-02-10 08:18 | XMS_ITS | Encounter Summary ---
Author Organization [facility] Address [address] [place] [address] Care Team Providers Care District Adviser Name Role Phone Unavailable Primary Care Provider Unavailabl e Encounter Details Date Type Department Care Team (Late st Contact Info) Description 04/30/2023 Lab Requisition [facility] - DermPath Lab [address] [place] [phone] Randy Bravo MD [facility] DERMATOLOGY [address] [place] [phone] Neoplasm of uncertain behavior of skin Social History Tobacco Use Types Packs/Day Years Used Date Smoking Tobacco: Never Assessed Sex and Gender Information Value Date Recorded Sex Assigned at Not on file Legal Sex Male 4:35 PM DIRECTOR OF COMPLIANCE Gender Identity Not on file Sexual Orientation Not on file documented as of this encounter Plan of Treatment Not on file documented as of this encounter Procedures Procedure Name Priority Date/Time Associated Diagnosis Comments DERMATOPATHOLOGY Routine 04/30/2023 3:33 AM DIRECTOR OF COMPLIANCE Neoplasm of uncertain behavior of skin documented in this encounter Results * DERMATOPATHOLOGY (04/30/2023 3:33 AM DIRECTOR OF COMPLIANCE) Case Report Dermatopathology Report Case: [id number] Authorizing Provider: Randy Bravo MD Collected: 04/30/2023 03:33 AM Ordering Location: [facility] DermPath Lab Received: 05/01/2023 01:16 PM Pathologist: Latrice Thibodeaux MD Specimens: A) - Skin, left hand B) - Skin, left ear 2:31 PM DIRECTOR OF COMPLIANCE DERMATOPATHOLOGY LABORATORY Final Diagnosis Specimen A. SKIN, left hand: SUPERFICIAL (FOCALLY INVASIVE) SQUAMOUS CELL CARCINOMA ARISING IN AN ACTINIC KERATOSIS (C44.629) Specimen B. SKIN, left ear: BASAL CELL CARCINOMA, FRAGMENTS OF (C44.219) (see microscopic description) 2:31 PM [facility] DERMATOPATHOLOGY LABORATORY at [address] DIRECTOR OF COMPLIANCE Clinical History A: Squamous Cell Carcinoma B: Basal Cell Carcinoma 2:31 PM [facility] DERMATOPATHOLOGY LABORATORY Gross Description [...] measuring 2x1x1 mm. Jar 0. 2:31 PM [facility] DERMATOPATHOLOGY LABORATORY Microscopic Description [...] sections were obtained and reviewed. 2:31 PM [facility] DERMATOPATHOLOGY LABORATORY Disclaimer An external and internal positive and negative controls are appropriate for the histochemical, immunohistochemical and immunofluorescence stain(s) in this case (if any), except where stated explicitly. The performance characteristics of the stain(s) cited in this report were developed and its performance characteristic determined by the Dermatopathology Laboratory at [facility], directed by Dr. Hoa Zayas. These tests need not be, and therefore are not, approved by the [place] Food and Drug Administration. The tests are used for clinical purposes. Billing Codes Specimen Charges Stain Charges 47049 93474 1 1 14635 1 2:31 PM [facility] DERMATOPATHOLOGY LABORATORY Embedded Images 2:31 PM [facility] DERMATOPATHOLOGY LABORATORY Pathology/Cytology TISSUE SPECIMEN FROM SKIN / Unknown 04/30/2023 3:33 AM DIRECTOR OF COMPLIANCE 05/01/2023 1:16 PM DIRECTOR OF COMPLIANCE Miscellaneous samples (specimen) TISSUE SPECIMEN FROM SKIN / Unknown 04/30/2023 3:33 AM DIRECTOR OF COMPLIANCE 05/01/2023 1:29 PM DIRECTOR OF COMPLIANCE us Randy Bravo MD LAB - PATHOLOGY/CYTOLOGY GIBRAN MARMOLEJO Final Result DERMATOPATHOLOGY LABORATORY [facility] - Department of Dermatology [facility] Medicine [address] [place] [address], [address] [phone] documented in this encounter Visit Diagnoses Diagnosis Neoplasm of uncertain behavior of skin documented in this encounter
--- OUTSIDE RECORDS SUMMARY | 2025-02-10 08:18 | XMS_ITS | Clinical Summary ---
Author Organization [facility] Address [facility] [place] [address] Care Team Providers Care Barrel Bander Name Role Phone Rey Heck MD Primary Care Provider [phone] Randy Bravo MD Unavailable [phone] Bran العراقي DO Unavailable [phone] Dave Parker MD Unavailable Allergies Active Allergy [...] Administration Dates Next Due Influenza, Unspecified 12/09/2016 Readmill (J&J) SARS-CoV-2 Vaccination 08/25/2020 Surgical History Surgery [...] on file Legal Sex Male 7:30 PM MEDICATION AID Gender Identity Not on file Sexual Orientation Not on file 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 Not on file Not on file Last Filed Vital Signs Vital Sign Reading Time Taken Comments Blood Pressure 101/57 04/11/2024 8:59 AM MEDICATION AID Pulse 65 04/11/2024 8:59 AM MEDICATION AID Temperature 37.1 C (98.8 F) 04/11/2024 8:59 AM MEDICATION AID Respiratory Rate 17 04/11/2024 8:59 AM MEDICATION AID Oxygen Saturation 96% 04/11/2024 8:59 AM MEDICATION AID Inhaled Oxygen Concentration - - Weight 80.3 kg (177 lb) 04/10/2024 3:30 PM MEDICATION AID Height 177.8 cm (5' 10) 04/10/2024 3:30 PM MEDICATION AID Body Mass Index 25.4 04/10/2024 3:30 PM MEDICATION AID Plan of Treatment Health Maintenance Due Date [...] Completed 03/31/2018 Medical Devices Implanted Type Area Freezer Assistant Device Identifier Shelf Expiration Date Model / Serial / Lot Medtronic Card Vas Surgery 4.0 X 30mm [place] Rx Coronary Stent [id number] - [id number] Implanted:Qty: 1 on 07/25/2023 [facility] 03/30/2026 [id number] / / [id number] 001 [employer] Sulma Stent Drug Eluting S Megatron Us Mr 5.00x8mm [id number] - [id number] Implanted:Qty: 1 on 07/25/2023 by Dave Parker MD at [facility] [facility] 10/30/2024 [id number] / / [id number] [facility] [employer] [facility] Angio-Seal Vip 6fr Closere Device [id number] - [id number] Implanted:Qty: 1 on 07/25/2023 by Dave Parker MD at [facility] [id number] / / [employer] Xact 8-10mm 40mm Self Expand Closed Cell Flare End Freestyle [id number] - [id number] Implanted:Qty: 1 on 04/10/2024 by Varun Zarate MD at [facility] [employer] 09/07/2025 [id number] / / [id number] [facility] [employer] [facility] Angio-Seal Vip 6fr Closere Device [id number] - [id number] Implanted:Qty: 1 on 04/10/2024 by Varun Zarate MD at [facility] 09/17/2024 [id number] / / Procedures Procedure Name Priority Date/Time Associated Diagnosis Comments HEPATITIS C ANTIBODY Routine 03/31/2018 3:12 PM MEDICATION AID Porphyria cutanea tarda (HCC) from Last 3 Months or Most Recently Relevant to Health Maintenance Results * Hepatitis C antibody (03/31/2018 3:12 PM MEDICATION AID) Hep C Ab <0.1 0.0 - 0.9 s/co ratio [facility] - 01 Comment: Negative: < 0.8 Indeterminate: 0.8 - 0.9 Positive: > 0.9 The CDC recommends that a positive HCV antibody result be followed up with a HCV Nucleic Acid Amplification test (601464). Blood specimen (specimen) 03/31/2018 3:12 PM MEDICATION AID 03/31/2018 Narrative [facility] - 04/01/2018 8:31 AM MEDICATION AID Performed at: - [facility] [address] [id number] Electromedical Equipment Technician: Mihir Paul PhD, Phone: [phone] Bran العراقي DO LAB MICROBIOLOGY - GENERAL O RDERABLES Final Result [facility] - 01 from Last 3 Months or Most Recently Relevant to Health Maintenance Insurance [employer] CHOICE MEDICARE O HU[employer]NA MEDICARE HMO Advance Directives For more information, please contact: [phone] * Full Code (Latest Code Status on File) Date Activated Date Inactivated Comments 04/10/2024 11:03 AM 04/11/2024 7:10 PM * Full Code Date Activated Date Inactivated Comments 07/25/2023 10:42 AM 07/26/2023 6:13 PM Care Teams Barrel Bander Relationship Specialty Start Date End Date Rey Heck MD PCP - General Internal Medicine 01/16/18 Randy Bravo MD Dermatology 01/20/18 Bran العراقي DO [address] [place] [id number] Medical Oncologist/Hematologis t Hematology and Oncology 06/11/18 Dave Parker MD [address] [place] [address] Consulting Physician Cardiovascular Disease 07/26/23
--- OUTSIDE RECORDS SUMMARY | 2025-02-10 08:18 | XMS_ITS | Clinical Summary ---
Author Organization [facility] Address [address] [place] [address] Phone Care Team Providers Care Production Administrative Assistant Name Role Phone Rey Heck MD Primary Care Provider Social History Tobacco Use Types Packs/Day Years [...] topic Insurance MEDICARE C [employer] Care Teams Production Administrative Assistant Relationship Specialty Start Date End Date Rey Heck MD PCP - General Internal Medicine 03/18/18
--- OUTSIDE RECORDS SUMMARY | 2025-02-10 08:18 | XMS_ITS | Encounter Summary ---
Author Organization [facility] Address [id number] [place] [address] Care Team Providers Care Robotics Technologist Name Role Phone Yasmin Madden MD Primary Care Provider Encounter Details Date Type Department Care Team ([facility] Contact Info) Description 02/08/[address] [facility] Oncology and Hematology - [address] [place] [address] Quintin Paniagua MD [facility] [address] [place] [phone] Iron overload Social History Tobacco Use Types Packs/Day Years Used Date Smoking Tobacco: Former Cigarettes 0 2 014 - 1964 Alcohol Use Standard Drinks/Week Comments Yes 24 (1 standard drink = 0.6 oz pu re alcohol) Sex and Gender Information Value Date Recorded Sex Assigned at Not on file Legal Sex Male 3:36 PM CDT Gender Identity Not on file Sexual Orientation Not on file documented as of this encounter Plan of Treatment Upcoming Encounters Date Type Department Care Team (Late Contact Info) Description 02/11/2025 9:45 AM PERL SOFTWARE ENGINEER Office Visit [facility] Oncology and Hematology - [address] [place] [address] Quintin Paniagua MD [facility] [address] [place] [phone] documented as of this encounter Visit Diagnoses Diagnosis Iron overload Other disorders of iron metabolism documented in this encounter Care Teams Robotics Technologist Relationship Specialty Start Date End Date Yasmin Madden MD PCP - General Internal Medicine 06/27/23 documented as of this encounter
--- OUTSIDE RECORDS SUMMARY | 2025-02-10 08:18 | XMS_ITS | Clinical Summary ---
Author Organization [facility] Paula Montelongo Address [address] [place] [address] Care Team Providers Care Bit Sharpener Name Role Phone Yasmin Madden MD Primary Care Provider Allergies Active Allergy Reactions Criticality Noted Date Comments Hydrochlorothiazide Other (See Comments) High 2017 Medications levothyroxine 100 mcg tablet Take 100 mcg by mouth daily in the morning. Active rosuvastatin (CRESTOR) 40 mg tablet Take 40 mg by mouth daily. Active folic acid (FOLVITE) 1 mg tablet Take 1 mg by mouth daily. Active ascorbic acid, vitamin C, (VITAMIN C) 1,000 mg Tablet Take 1,000 mg by mouth daily. Active cholecalciferol 1,250 mcg (50,000 unit) Capsule Take by mouth. Activ e CYANOCOBALAMIN, VITAMIN B-12, INJECTION by Injection route. Active nitroglycerin (NITROSTAT) 0.4 mg Tablet, Sublingual Place 0.4 mg under tongue every 5 minutes as needed for Chest Pain. Active aspirin (LARISA CHEWABLE) 81 mg Tablet, Chewable Take 81 mg by mouth daily. Active NIFEdipine (PROCARDIA XL) 30 mg Extended Release 24 hour tablet Take 30 mg by mouth daily. Active pantoprazole (PROTONIX) 40 mg Tablet, Delayed Release (E.C.) Take 40 mg by mouth daily. Active ticagrelor (BRILINTA) 90 mg Tablet Take 90 mg by mouth 2 times daily. Active Active Problems No known active problems Encounters Date Type Department Care Team Description 02/08/2025 Orders Only [facility] Oncology and Hematology - [address] [place] [address] Quintin Paniagua MD Iron overload 01/26/2025 Orders Only [facility] Oncology and Hematology - [address] [place] [phone] Quintin Paniagua MD 01/25/2025 Orders Only [facility] Oncology and Hematology - [address] [place] [phone] Quintin Paniagua MD Iron overload 01/13/2025 Orders Only [facility] Oncology and Hematology - [address] [place] [address] Quintin Paniagua MD 01/11/2025 Orders Only [facility] Oncology and Hematology - [address] [place] [address] Quintin Paniagua MD Iron overload (Primary Dx) 12/22/2024 10:00 AM CDT Office Visit [facility] Oncology and Hematology - [address] [place] [phone] Quintin Paniagua MD Iron overload (Primary Dx); Anemia in stage 4 chronic kidney disease (CMS/HCC) 12/11/2024 Orders Only [facility] Oncology and Hematology - [address] [place] [phone] Quintin Paniagua MD from Last 3 Months Family History Relation Name Status Comments Brother Alive Father Mother Alive Sister 1 Alive Sister 2 Alive Social History Tobacco Use Types Packs/Day Years Used Date Smoking Tobacco: Former Cigarettes 0 2 014 - 1965 Tobacco Cessation:Counseling Given: Not Answered Alcohol Use Standard Drinks/Week Comments Yes 24 (1 standard drink = 0.6 oz pu re alcohol) Sex and Gender Information Value Date Recorded Sex Assigned at Not on file Legal Sex Male 3:36 PM CDT Gender Identity Not on file Sexual Orientation Not on file Last Filed Vital Signs Vital Sign Reading Time Taken Comments Blood Pressure 137/57 12/22/2024 9:42 AM CDT Pulse 95 12/22/2024 9:42 AM CDT Temperature 36.4 C (97.6 F) 12/22/2024 9:42 AM CDT Respiratory Rate 16 12/22/2024 9:42 AM CDT Oxygen Saturation 98% 12/22/2024 9:42 AM CDT Inhaled Oxygen Concentration - - Weight 75.8 kg (167 lb) 12/22/2024 9:42 AM CDT Height 175.3 cm (5' 9) 10/20/2024 9:50 AM CDT Body Mass Index 24.66 10/20/2024 9:50 AM CDT Plan of Treatment Upcoming Encounters Date Type Department Care Team (Late st Contact Info) Description 02/11/2025 9:45 AM DUTY OFFICER Office Visit [facility] Oncology and Hematology - [place] [address] [facility] [address] [place] [address] Quintin Paniagua MD [address] [facility] [address] [place] [address] Health Maintenance Due Date Last [...] 75+ series) 2024 COVID-19 Vaccine (3 - season) 2024, 08/25/2020 PNEUMOCOCCAL VACCINE 50+ YEARS Completed 05/06/2023 Abdominal Aortic Aneurysm (AAA) Screening Completed 05/15/2023 Procedures Procedure Name Priority Date/Time Associated Diagnosis Comments CBC WITH AUTODIFFERENTIAL Routine 2024 11:33 AM DUTY OFFICER CBC WITH AUTODIFFERENTIAL Routine 2024 3:42 PM DUTY OFFICER IRON, TIBC, AND PERCENT SATURATION Routine 12/10/2024 12:22 PM CDT BASIC METABOLIC PANEL Routine 12/10/2024 12:01 PM CDT from Last 3 Months Results * CBC WITH AUTODIFFERENTIAL (01/25/2025 11:33 AM DUTY OFFICER) Only the most recent of2 resultswithin the time period is included. Blood us Quintin Paniagua MD HEMATOLOGY ORDERABLES Final Res ult * IRON, TIBC, AND PERCENT SATURATION (12/10/2024 12:22 PM CDT) Blood us Quintin Paniagua MD CHEMISTRY ORDERABLES Final Resu lt * BASIC METABOLIC PANEL (12/10/2024 12:01 PM CDT) Blood us Quintin Paniagua MD CHEMISTRY ORDERABLES Final Resu lt from Last 3 Months Insurance Care Teams Bit Sharpener Relationship Specialty Start Date End Date Yasmin Madden MD PCP - General Internal Medicine 06/27/23
--- OUTSIDE RECORDS SUMMARY | 2025-02-10 08:18 | XMS_ITS | Clinical Summary ---
Author Organization [facility] Address [address] [facility] 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 This disclosure is being madepursuant to the Care Everywhere program and may not contain all information available regarding this patient. 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
--- OUTSIDE RECORDS SUMMARY | 2025-02-10 08:18 | XMS_ITS | Encounter Summary ---
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 Paralegal Name Role Phone Unavailable Primary Care Provider Unavailabl e Encounter Details Date Type Department Care Team (Late st Contact Info) Description 06/17/2024 Lab Requisition [facility] - DermPath Lab [address] [place] [phone] Randy Bravo MD [facility] DERMATOLOGY [address] [place] [phone] Neoplasm of uncertain behavior of skin Social History Tobacco Use Types Packs/Day Years Used Date Smoking Tobacco: Never Assessed Sex and Gender Information Value Date Recorded Sex Assigned at Not on file 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 Gender Identity Not on file Sexual Orientation Not on file documented as of this encounter Plan of Treatment Not on file documented as of this encounter Procedures Procedure Name Priority Date/Time Associated Diagnosis Comments DERMATOPATHOLOGY Routine 06/17/2024 3:33 AM CDT Neoplasm of uncertain behavior of skin documented in this encounter Results * DERMATOPATHOLOGY (06/17/2024 3:33 AM CDT) Case Report Dermatopathology Report Case: [id number] Authorizing Provider: Randy Bravo MD Collected: 06/17/2024 03:33 AM Ordering Location: [facility] - Received: 06/18/2024 12:37 [...] characteristic determined by the Dermatopathology Laboratory at [facility], directed by Dr. Hoa Zayas. These tests need not be, and therefore are not, approved by the [place] Food and Drug Administration. The tests are used for clinical purposes. Billing Codes Specimen Charges Stain Charges 60663 1 1:05 PM CDT DERMATOPATHOLOGY LABORATORY Embedded Images 1:05 PM CDT DERMATOPATHOLOGY LABORATORY Pathology/Cytolo gy TISSUE SPECIMEN FROM SKIN / Unknown 06/17/2024 3:33 AM CDT 06/18/2024 12:37 PM CDT Randy Bravo MD LAB - PATHOLOGY/CYTOLOGY ORDE FRANCIE Final Result DERMATOPATHOLOGY LABORATORY [facility] - Department of Dermatology [address], [address] [phone] documented in this encounter Visit Diagnoses Diagnosis Neoplasm of uncertain behavior of skin documented in this encounter
[2025-02-10 08:46] LABS: Albumin Level 3.8 g/dL (3.5-5.1); Anion Gap 6 mmol/L (4-12); Blood Urea Nitrogen 44 mg/dL (9-20); Calcium 9.2 mg/dL (8.4-10.2); Carbon Dioxide 24 mmol/L (22-30); Chloride 110 mmol/L (98-107); Estimated Glomerular Filt Rate 18; Glucose 96 mg/dL (65-110); Potassium 3.4 mmol/L (3.4-5.0); Sodium 140 mmol/L (137-145)
== END 2025-02-10 08:10 | disposition home or self-care (01) ==
PROVIDERS: PCP Internal Medicine; Visit Provider Internal Medicine Nephrology
DX: N17.9 Acute kidney failure, unspecified (principal); Z99.2 Dependence on renal dialysis
CPT/HCPCS: 36415; 80069